=== PATIENT | female | born 1995 | race Caucasian/White ===

== ENCOUNTER → 2017-07-08 | Outpatient (CLI) | payer OTHER, SELFPAY | PROVIDERS: Family Provider Emergency Medicine; Visit Provider Otolaryngology | DX: R59.9 Enlarged lymph nodes, unspecified (principal) | CPT/HCPCS: 70491; Q9967 ==

== ENCOUNTER 2018-09-03 17:34 | Emergency (ER) | payer OTHER, SELFPAY ==
[2018-09-03 17:49] VITALS: BP 117/69; PULSE 90; RESP 18; TEMP 36.8; O2SAT 100; BMI 37.8
--- NOTE | 2018-09-03 18:06 | HMH.EDUTC ---
[facility] [place] Disposition Clinical Impression: Pharyngitis Qualifiers: Pharyngitis/tonsillitis etiology: other specified organisms Qualified Code(s): J02.8 - Acute pharyngitis due to other specified organisms Disposition: Home, Self-Care Condition on Discharge: Good Instructions: Sore Throat Additional Instructions: Drink plenty of fluids. Take tylenol or ibuprofen for pain. Take all the medications as prescribed. Off work for the next 2 days. Go to your regular doctor if you are not getting better in 48 hours or so. GO TO THE ER FOR ANY WORSENING OR LIFE THREATENING SYMPTOMS Prescriptions: Cefdinir [Omnicef 300mg Capsule] 300 mg PO BID #20 cap predniSONE [Deltasone 20mg tablet] 20 mg PO BID 3 Days #6 tablet Referrals: Naheed Hidalgo [Primary Care Provider] - Forms: Work/School Release Time of Disposition: 18:26 Medical Decision Making - Alli Inquiry Pt receiving controlled substance: No Alli was queried for this patient: No Vital Signs: 09/03/18 17:49 09/03/18 18:30 Temperature 98.2 F 98.4 F Temperature Source Oral Oral Pulse Rate 88 Pulse Rate [Right Brachial] 90 Respiratory Rate 18 16 Blood Pressure 114/64 Blood Pressure [Right Arm] 117/69 Blood Pressure Mean [Right Arm] 85 Blood Pressure Source Automatic Cuff Blood Pressure Source [Right Arm] Automatic Cuff Blood Pressure Position Sitting Blood Pressure Position [Right Arm] Sitting 02 Sat by Pulse Oximetry 100 Oxygen Delivery Method Room Air Room Air - Lab Data Lab results reviewed: Yes: I reviewed the patient's lab results. Lab Results 09/03/18 17:56: Strep Scn Rapid Clinic Negative Orders (Tests/Meds): ED MEDICATIONS Discontinued Medications Generic Name Dose Route Start Last Admin Trade Name Freq PRN Reason Stop Dose Admin Cefdinir 300 mg 09/03/18 18:26 Omnicef 300mg Capsule PO 09/03/18 18:27 ONCE ONE Protocol Prednisone 20 mg 09/03/18 18:28 Deltasone 20mg Tablet PO 09/03/18 18:29 ONCE ONE ORDERS Category Date Time Status Strep Screen Confirmation Stat Micro 09/03/18 17:56 Received [facility] [place] HPI - General Stated complaint: sore throat Time Seen by Provider: 09/03/18 18:07 Mode of Arrival: Family Vehicle Source of Information: Patient Limitations: No Limitations Description of Symptoms (Recalled from Triage Doc. by RN): PT C/O SORE THROAT. PT STATES THAT SHE HAD STREP 2 WEEKS AGO AND WAS TREATED WITH AMOXICILLIN. HEENT Symptoms (Recalled from RN notes): Yes (SORE THROAT) Resp Symptoms (Recalled from RN notes): No Skin Symptoms (Recalled from RN notes): No MS Symptoms (Recalled from RN notes): No Functional Status (Recalled from RN notes): N/A - History of Present Illness Provider Complaint: She was diagnosed with strep 2 weeks ago and treated with amoxicillin. she got better, but over the past 2 days she feels like she is getting it again. 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 I have reviewed the patient's past medical history: Yes Medical History: Denies:: Cancer, Diabetes Mellitus Type 1, Diabetes Mellitus Type 2, MRSA Laterality Cases: Bilateral: Tonsillectomy Other Surgeries: Yes: No Previous Surgery Amp
[2018-09-03 18:10] LABS: UTC Strep Screen (Rapid) Negative (Negative)
[2018-09-03 18:30] VITALS: BP 114/64; PULSE 88; RESP 16; TEMP 36.9; O2SAT 99
== END 2018-09-03 18:42 | disposition home or self-care (01) ==
PROVIDERS: Emergency Provider Nurse Practitioner Family; PCP Nurse Practitioner
DX: J02.8 Acute pharyngitis due to other specified organisms (principal)
CPT/HCPCS: 87880; 99201

== ENCOUNTER → 2019-07-31 10:37 | Outpatient (CLI) | payer OTHER, SELFPAY ==
--- NOTE | 2019-07-31 10:42 | US_ITS ---
PROCEDURE: US BREAST LT COMPLETE CLINICAL INDICATION: LT BREAST LUMP COMPARISON: No exams were available for comparison FINDINGS: There is an oval area homogeneous echogenicity in the 6 o'clock region of the left breast which has the appearance a lipoma measuring 2.3 x 0.6 cm. This does appear to elongate on additional images and may only be related underlying fibroglandular or adipose tissue. No cyst or suspicious lesion evident. IMPRESSION: Benign findings. BI-RADS category 3 probably benign. Recommend 3 month follow-up Dictated by: Oswald Patterson MD 08/03/2019 14:30 Electronically signed by Oswald Patterson MD in [place] 08/03/2019 14:30
== END ==
PROVIDERS: PCP Nurse Practitioner; Visit Provider Obstetrics & Gynecology Gynecology
DX: N63.0 Unspecified lump in unspecified breast (principal)
CPT/HCPCS: 76641

== ENCOUNTER → 2019-10-16 13:44 | Outpatient (CLI) | payer OTHER, SELFPAY ==
--- NOTE | 2019-10-16 13:50 | US_ITS ---
PROCEDURE: US BREAST LT COMPLETE CLINICAL INDICATION: 3 MO FU Palpable abnormality COMPARISON: US BREAST LT COMPLETE from 07/31/2019 FINDINGS: In the left breast at the 6 o'clock position sonography targeted to the palpable abnormality demonstrates an oval hypo echoic homogeneous echogenicity approximately 1.1 x 2.6 x 0.69 centimeters. This was approximately 1.0 x 2.2 x 0.58 centimeters on 07/31/2019. Given technical inaccuracies in the measurements and non comparable imaging planes on a the finding is probably not significantly changed. There are 2 fat containing nodules in the left axilla most consistent with lymph nodes largest 1.3 centimeters. IMPRESSION: BI-RADS category 3 probably benign finding. Consider 3 to six-month follow-up in attempt to document continued stability. Definitive tissue diagnosis could be attempted with ultrasound guided biopsy if felt clinically indicated. Dictated by: Arash Ray 10/17/2019 17:03 Electronically signed by Arash Ray in [place] 10/17/2019 17:03
== END ==
PROVIDERS: Visit Provider Obstetrics & Gynecology
DX: N63.20 Unspecified lump in the left breast, unspecified quadrant (principal)
CPT/HCPCS: 76641

== ENCOUNTER 2020-05-30 17:59 | Emergency (ER) | payer OTHER, SELFPAY ==
[2020-05-30 18:39] VITALS: BP 103/66; PULSE 63; RESP 14; TEMP 37; O2SAT 99; BMI 36.1
--- NOTE | 2020-05-30 19:10 | HMH.EDUTC ---
[facility] [place] Disposition Clinical Impression: Exposure to COVID-19 virus Disposition: Home, Self-Care Condition on Discharge: Good Instructions: Preventing the Spread of Coronavirus Discharge Instructions Additional Instructions: Drink plenty of fluids. Take tylenol for pain or fever. Follow up with your regular doctor. GO TO THE ER FOR ANY WORSENING SYMPTOMS Referrals: Caridad Hand APRN [Primary Care Provider] - Time of Disposition: 19:12 Medical Decision Making - Medical Records Medical records reviewed: No: I reviewed the patient's medical records. - Alli Inquiry Pt receiving controlled substance: No Vital Signs: 05/30/20 18:39 Temperature 98.6 F Temperature Source Oral Pulse Rate [Radial] 63 Respiratory Rate 14 Blood Pressure [Right Arm] 103/66 L Blood Pressure Mean [Right Arm] 78 Blood Pressure Source [Right Arm] Automatic Cuff Blood Pressure Position [Right Arm] Sitting 02 Sat by Pulse Oximetry 99 Oxygen Delivery Method Room Air Orders (Tests/Meds): ORDERS Category Date Time Status Covid-19 Nasal PCR ([facility]) Routine Lab 05/30/20 18:35 Received [facility] [place] HPI - General Stated complaint: COVID TEST Sore throat, headache Time Seen by Provider: 05/30/20 19:10 Mode of Arrival: Ambulatory Source of Information: Patient Limitations: No Limitations Description of Symptoms (Recalled from Triage Doc. by RN): HEADACHE, SORE THROAT, COVID TEST HEENT Symptoms (Recalled from RN notes): Yes Resp Symptoms (Recalled from RN notes): No Skin Symptoms (Recalled from RN notes): No MS Symptoms (Recalled from RN notes): No Functional Status (Recalled from RN notes): WNL - History of Present Illness Provider Complaint: She was exposed to covid by a family member that came to her house. She does have a scratchy sore throat, but she states that she feels fine and always has allergies this time of year. - Related Data Previous Rx's Medication Instructions Recorded Amoxicillin [Amoxicillin 875MG 875 mg PO Q12H #20 tab 08/24/19 Tab] Fluticasone Propionate [Flonase 1 spray NS BID 10 Days #1 bot 08/24/19 Allergy Relief NS] Azithromycin [Z-Rajan 250mg Tab*] 250 mg PO UD DOSE PK #6 tab 09/16/19 Pseudoephedrine HCl 30 mg PO Q6HP PRN #30 tab 09/16/19 Allergies Allergy/AdvReac Type Severity Reaction Status Date / Time famotidine [From Pepcid] Allergy Verified 05/04/19 11:38 metoclopramide [From Reglan] Allergy Verified 08/24/19 20:16 - Worker's Comp Is this a Worker's Comp case?: No [facility] History - Hepatitis A Screen Drug use history?: No High risk sexual behaviors?: No History of sexually transmitted infection?: No Currently employed?: No Childcare worker?: No Do you have indoor plumbing?: Yes Do you have electricity?: Yes Attestation statement:: This patient has been screened for Hepatitis A risk factors. I have reviewed the patient's past medical history: Yes Medical History: Denies:: Cancer, Diabetes Mellitus Type 1, Diabetes Mellitus Type 2, MRSA Laterality Cases: Bilateral: Tonsillectomy Other Surgeries: Yes: No Previous Surgery, Hernia Repair Amputation: No Fractures: No - Social History Smoking Status: Never smoker Alcohol Intake: never Alcohol Intake Frequency:: holidays/special occasions only Substance Use Type: denies use Occupational Status: other Housing: house Household Members: family Family Hx:: No significant family history ROS Obtained: Yes All systems reviewed & no additional complaints - Constitutional Constitutional: Reports system reviewed and no additional complaints, except as docu - Eyes Eyes: Reports system reviewed and no additional complaints, except as docu - ENT Ears, Nose, Mouth, and Throat: Reports system reviewed and no additional complaints, except as docu - Cardiovascular Cardiovascular: Reports system reviewed and no additional complaints, except as docu - Respiratory Respiratory: Yes system reviewed and no ad
[2020-05-30 19:17] VITALS: BP 103/66; PULSE 63; RESP 14; TEMP 37; O2SAT 99
== END 2020-05-30 19:18 | disposition home or self-care (01) ==
PROVIDERS: Emergency Provider Nurse Practitioner Family; PCP Nurse Practitioner Family
DX: Z20.828 Contact with and (suspected) exposure to other viral communicable diseases (principal)
CPT/HCPCS: 99201; U0003

== ENCOUNTER → 2020-07-26 12:28 | Outpatient (CLI) | payer OTHER, SELFPAY ==
[2020-07-26 13:49] LABS: HCG Qualitative, Serum Negative (Negative)
[2020-07-26 14:01] LABS: Coronavirus 19 IgG Antibody Negative (Negative); Coronavirus 19 IgM Antibody Negative (Negative)
== END ==
PROVIDERS: Visit Provider Internal Medicine Gastroenterology
DX: Z01.812 Encounter for preprocedural laboratory examination (principal); Z11.52 Encounter for screening for COVID-19; Z13.810 Encounter for screening for upper gastrointestinal disorder; Z12.11 Encounter for screening for malignant neoplasm of colon
CPT/HCPCS: 36415; 84703; 86328

== ENCOUNTER 2020-07-28 07:06 | Day surgery (SDC) | payer OTHER, SELFPAY ==
[2020-07-24 13:35] VITALS: BMI 37.1
[2020-07-28 07:24] VITALS: BP 117/60; PULSE 77; RESP 18; TEMP 36.7; O2SAT 97
[2020-07-28 07:44] VITALS: O2SAT 98
--- NOTE | 2020-07-28 07:46 | HMH.PROC ---
[facility] Procedure Note Procedure Note:: Upper Endoscopy Procedure Report: Esophagogastroduodenoscopy with cold biopsies Endoscopost: Melchor Marks II, MD Referring Physician: MARCIA Webb Date of Procedure: July 28, 2020 Equipment: Olympus GIF 180 standard upper endoscope Sedation: MAC sedation Indications: Mrs. Sanders is a 25-year-old female with epigastric abdominal pain and dyspepsia. She has had bloating, nausea, early satiety and heartburn. She reports some regurgitation. 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 She will go up to a week without a bowel movement and then have some soft loose stools. This is her first diagnostic upper endoscopy. She reports no dysphagia. She reports no melena or weight loss. Procedure: Prior to the procedure, a history and physical exam was performed, and patient's medications and allergies were reviewed. The risks, benefits and alternatives of the sedation and procedure were discussed with the patient. All questions were answered and informed consent was obtained. The patient was brought to the procedure room. Patient identification and proposed procedure were verified by the physician and the nurse. The patient was placed in a left lateral decubitus position and the scope was passed under direct vision. Throughout the procedure, the patient's blood pressure, pulse, and oxygen saturations were monitored continuously. The upper GI endoscopy was accomplished without difficulty. The patient tolerated the procedure well. Findings: The scope was passed directly into the upper esophagus and advanced to the third portion of the duodenum. The post bulbar duodenum and duodenal bulb were normal with normal mucosa and conniventes. The scope was withdrawn through a normal duodenal bulb and pylorus into the stomach. There was some bile reflux with mild linear reactive gastropathy of the antrum and body of the stomach. The remainder of the antrum, body and fundus of the stomach were grossly normal. Upon retroflexion there was no hiatal hernia. 2 biopsies were taken in the antrum and along the lesser curvature for histology to rule out gastritis and/or H pylori. The scope was then withdrawn into the esophagus. There was a serrated Z-line. There were mild tertiary contractions within the esophagus. There was no evidence of Meyer's esophagus or reflux esophagitis. There was no Schatzki's ring. Biopsies were taken at the GE junction. The remainder of the esophageal mucosa was normal. Impression: 1. Nonerosive GERD with mild esophageal dysmotility 2. Mild linear reactive gastropathy with bile reflux Plan: I will follow-up the biopsies. The patient does have functional dyspepsia and IBS constipation. I would consider Zelnorm or Motegrity. I would also consider a fiber bowel regimen (combined MiraLAX plus Konsyl daily to twice daily). Additionally, I would consider treatment for visceral sensitivity. We will discuss treatment options. I will proceed with colonoscopy.
--- NOTE | 2020-07-28 08:05 | HMH.PROC ---
[facility] Procedure Note Procedure Note:: Colonoscopy Procedure Report: Colonoscopy Endoscopist: Melchor Marks II, MD Referring physician: MARCIA Webb Date of Procedure: July 28, 2020 Equipment: Olympus 180 variable stiffness pediatric colonoscope Sedation: MAC sedation Indication: Mrs. Sanders is a 25-year-old female with dyspepsia and IBS with constipation. 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 She will go 1 week without a bowel movement and then have soft and loose stools. She has epigastric and some generalized abdominal discomfort. She has obstipation/incomplete defecation. She reports no rectal bleeding, weight loss or family history of colon cancer. She reports no family history of colitis or Crohn's disease. This is her first colonoscopy performed for diagnostic purposes. Procedure: Prior to the procedure, a history and physical exam was performed, and patient's medications and allergies were reviewed. The risks, benefits and alternatives of the sedation and procedure were discussed with the patient. All questions were answered and informed consent was obtained. The patient was brought to the procedure room. Patient identification and proposed procedure were verified by the physician and the nurse. The patient was placed in a left lateral decubitus position and the scope was passed under direct vision. Throughout the procedure, the patient's blood pressure, pulse, and oxygen saturations were monitored continuously. The colonoscopy was accomplished without difficulty. The patient tolerated the procedure well. Findings: On digital rectal examination there was normal rectal tone. There were no external hemorrhoids. The colonoscope was introduced through the anal canal to the rectum and advanced to the cecum. The ileocecal valve and appendiceal orifice were identified. The scope was advanced a short distance into the ileum which appeared grossly normal. The scope was then withdrawn into the colon. The cecum, ascending, transverse, descending, sigmoid and rectum were grossly normal. There were no mucosal abnormalities identified. Upon retroflexion within the rectum there were grade 1 internal hemorrhoids.The preparation was excellent throughout with [place] Preparation Score of 9. The cecal time was 12 minutes. Impression: 1. Normal colonoscopy with intubation of the terminal ileum Plan: The patient does have IBS constipation. I would certainly consider Zelnorm or Motegrity if covered. I would also consider treatment for visceral sensitivity. We will discuss dietary measures.
[2020-07-28 08:06] VITALS: BP 106/55; PULSE 78; RESP 12; TEMP 36.1; O2SAT 99
[2020-07-28 08:16] VITALS: BP 97/48; PULSE 77; RESP 16; O2SAT 100
--- NOTE | 2020-07-28 08:16 | P.PN_ITS ---
[facility] Anesthesia Checklist - Patient Identification Patient Identification: Arm Band - Structural Data Admitted From: Home Planned Operative Procedure/s: egd/colonoscopy Consent for Planned Operative Procedure(s) Verified: Yes Verified Documents: Surgical Consent, History and Physical - NPO Status Verified Time NPO: 00:00 - Additional verifications Anesthesia Reactions: No - Airway Assessment C-Spine Mobility Assessed: Yes (mp2) TMJ Mobility Assessed: Yes Dentition: Good Dentition - Neurological Assessment Level of Consciousness: Awake, Alert - Anesthesia Plan Anesthesia Risk discussed: Yes Anesthesia Plan: Verified ASA Class: II Anesthesia Type: MAC [facility] History I have reviewed the patient's past medical history: Yes Medical History: Reports:: Anxiety Denies:: Cancer, Diabetes Mellitus Type 1, Diabetes Mellitus Type 2, Internal Pacemaker, MRSA, Seizures *Have you ever received a pneumonia vaccine?: No *Have you received a flu vaccine this season?: No Anesthesia experience/problems:: nac Laterality Cases: Bilateral: Tonsillectomy Other Surgeries: Yes: Hernia Repair. No: Pacemaker Amputation: No Fractures: No - *Social History Last grade of school completed: Some college Smoking Status: Current some day smoker Tobacco Type: e-cigarettes # Packs/Day (cigarettes): 1 Alcohol Intake: current Alcohol Intake Frequency:: holidays/special occasions only Substance Use Type: denies use *Occupational Status:: unemployed Housing: house Household Members: spouse, children *Travel in the last 8 weeks: None Family Hx:: Thyroid Disorder, Substance abuse, Mental illness
[2020-07-28 08:26] VITALS: BP 96/48; PULSE 75; RESP 16; O2SAT 98
[2020-07-28 08:36] VITALS: BP 96/58; PULSE 65; RESP 16; TEMP 36.4; O2SAT 99
== END 2020-07-28 08:50 | disposition home or self-care (01) ==
LOC: OUTP 07:07
PROVIDERS: PCP Nurse Practitioner Family; Visit Provider Internal Medicine Gastroenterology
PROC: 0DJ08ZZ Inspection of Upper Intestinal Tract, Via Natural or Artificial Opening Endoscopic (ICD-10-PCS; CPT 43235; principal; 2020-07-28 08:00)
DX: K58.1 Irritable bowel syndrome with constipation (principal); R10.13 Epigastric pain; K64.0 First degree hemorrhoids; K21.9 Gastro-esophageal reflux disease without esophagitis; K22.4 Dyskinesia of esophagus; K31.9 Disease of stomach and duodenum, unspecified; F41.9 Anxiety disorder, unspecified; Z88.8 Allergy status to other drugs, medicaments and biological substances; Z79.899 Other long term (current) drug therapy
CPT/HCPCS: 45378; 43239

== ENCOUNTER 2021-10-16 18:56 | Emergency (ER) | payer OTHER, SELFPAY ==
[2021-10-16 18:56] VITALS: BP 115/73; PULSE 76; RESP 16; TEMP 36.8; O2SAT 97; BMI 39.1
--- NOTE | 2021-10-16 19:22 | CT_ITS ---
PROCEDURE INFORMATION: Exam: CT Abdomen And Pelvis Without Contrast Exam date and time: 10/16/2021 7:39 PM Age: 26 years old Clinical indication: Abdominal pain; Other: Bilateral flank pain and recent UTI; Additional info: Rule out kidney stones bilateral flank pain and recent UTI dx TECHNIQUE: Imaging protocol: Computed tomography of the abdomen and pelvis without contrast. Radiation optimization: All CT scans at this facility use at least one of these dose optimization techniques: automated exposure control; mA and/or kV adjustment per patient size (includes targeted exams where dose is matched to clinical indication); or iterative reconstruction. COMPARISON: [facility] CTA-CHEST 11/13/2015 8:50 PM FINDINGS: Tubes, catheters and devices: None noted. Lungs: Lung bases appear clear. Heart: No significant coronary calcifications. No cardiomegaly. No significant pericardial effusion. Liver: Normal. No mass. Gallbladder and bile ducts: Normal. No calcified stones. No ductal dilation. Pancreas: Normal. No ductal dilation. Spleen: Normal. No splenomegaly. Adrenal glands: Normal. No mass. Kidneys and ureters: Punctate left lower pole caliceal calcification. No hydronephrosis. Stomach and bowel: Unremarkable. No obstruction. No mucosal thickening. Appendix: No evidence of appendicitis. Intraperitoneal space: Unremarkable. No free air. No significant fluid collection. Retroperitoneal space: No significant retroperitoneal inflammatory changes are noted. Vasculature: Unremarkable. No abdominal aortic aneurysm. Lymph nodes: Unremarkable. No enlarged lymph nodes. Urinary bladder: Unremarkable as visualized. Reproductive: Unremarkable as visualized. Bones/joints: Unremarkable. No acute fracture. Soft tissues: Unremarkable. IMPRESSION: 1. No acute findings. 2. Nonobstructive left lower pole caliceal calcification.
[2021-10-16 19:26] LABS: Microscopic, Urine URINE MICROSCOPIC (MICROSCOPIC)
[2021-10-16 19:36] LABS: Appearance,Urine CLEAR (Clear); Bilirubin,Urine Negative (Negative); Blood, Urine Negative (Negative); Color,Urine YELLOW (Yellow); Glucose,Urine (UA) Negative (Negative); Ketones,Urine Negative (Negative); Leukocyte Esterase,Urine Negative (Negative); Nitrate,Urine Negative (Negative); PH,Urine 6.5 (5.0-8.5); Protein,Urine Negative (Negative); Specific Gravity, Urine <= 1.005 (1.005-1.030); Urobilinogen,Urine 0.2 EU/dl (0.2)
[2021-10-16 19:37] LABS: Urine Pregnancy, HCG Qual. Negative (Negative)
[2021-10-16 19:46] LABS: Amorphous Sediment,Urine Trace /lpf; Squamous Epithelial Cell,Urine Occasional #/hpf (0-5)
[2021-10-16 20:45] LABS: Alanine Aminotransferase 15 U/L (12-78); Albumin Level 3.7 g/dl (3.5-5.0); Albumin/Globulin Ratio 1.3 (1.1-1.8); Alkaline Phosphatase 23 U/L (38-126); Anion Gap 10.2 mEq/L (5-15); Aspartate Amino Transferase 30 U/L (14-36); Bilirubin,Total 0.5 mg/dl (0.2-1.3); Blood Urea Nitrogen 13 mg/dl (7-17); Calcium 7.8 mg/dl (8.4-10.2); Carbon Dioxide 20 mmol/L (22.0-30.0); Chloride 111 mmol/L (98-107); Creatinine Clearance Estimated 305 mL/min (50-200); Estimated Glomerular Filt Rate 149 ml/min (>60); GFR (African American) 180 ML/MIN (>60); Globulin 2.8 g/dL (1.3-3.2); Glucose 71 mg/dl (74-100); Potassium 4.2 mmoL/L (3.5-5.1); Sodium 137 mmol/L (136-145); Total Protein,Serum 6.5 g/dl (6.3-8.2)
[2021-10-16 21:11] LABS: Basophils # 0.1 K/mm3 (0-0.2); Basophils % 1.1 % (0.1-2.0); Eosinophils # 0.1 K/mm3 (0.0-0.4); Eosinophils % 0.8 % (0.1-12.0); Hematocrit 37.2 % (37.0-47.0); Hemoglobin 12.2 g/dL (12.2-16.2); Lymphocytes # 2.5 K/mm3 (0.7-4.5); Lymphocytes % 22.8 % (10-50); Mean Corpuscular HGB Conc 32.7 g/dL (31.8-35.4); Mean Corpuscular Hemoglobin 29.8 pg (27.0-31.2); Mean Corpuscular Volume 90.9 fl (81-99); Mean Platelet Volume 9.3 fl (7.4-10.4); Monocytes # 0.4 K/mm3 (0.1-1.0); Neutrophils # 7.8 K/mm3 (1.8-7.8); Neutrophils % 71.3 % (37.0-80.0); Platelet Count 231 K/mm3 (142-424); Red Blood Count 4.09 M/mm3 (4.20-5.40); Red Cell Distribution Width 13.6 % (11.5-17.5); White Blood Count 10.9 K/mm3 (4.8-10.8)
--- NOTE | 2021-10-16 21:27 | HMH.EDUROGF ---
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 The time I documented below is in addition to time spent performing reported procedures but includes the following listed in this critical care notation. Medical Decision Making - Medical Records Medical records reviewed: Yes: I reviewed the patient's medical records. - Alli Inquiry Pt receiving controlled substance: No Vital Signs: 10/16/21 18:56 Temperature 98.3 F Temperature Source Oral Pulse Rate [Left Radial] 76 Respiratory Rate 16 Blood Pressure [Right Arm] 115/73 Blood Pressure Mean [Right Arm] 87 02 Sat by Pulse Oximetry 97 Oxygen Delivery Method Room Air - Lab Data Lab results reviewed: Yes: I reviewed the patient's lab results. Lab Results 10/16/21 19:02: Urine Color Yellow, Urine Appearance Clear, Urine pH 6.5, Ur Specific [place] <= 1.005, Urine Protein Negative, Urine Glucose (UA) Negative, Urine Ketones Negative, Urine Blood Negative, Urine Nitrate Negative, Urine Bilirubin Negative, Urine Urobilinogen 0.2, Ur Leukocyte Esterase Negative, Ur Squamous Epith Cells Occasional, Amorphous Sediment Trace 10/16/21 19:02: Urine HCG, Qual Negative 10/16/21 20:12: Sodium 137, Potassium 4.2, Chloride 111 H, Carbon Dioxide 20 L, Anion Gap 10.2, BUN 13, Creatinine 0.50 L, Estimated Creat Clear 305 H, Estimated GFR 149, Est GFR ( Amer) 180, Glucose 71 L, Calcium 7.8 L, Total Bilirubin 0.5, AST 30, ALT 15, Alkaline Phosphatase 23 L, Total Protein 6.5, Albumin 3.7, Globulin 2.8, Albumin/Globulin Ratio 1.3 10/16/21 20:49: WBC 10.9 H, RBC 4.09 L, Hgb 12.2, Hct 37.2, MCV 90.9, MCH 29.8, MCHC 32.7, RDW 13.6, Plt Count 231, MPV 9.3, Neut % (Auto) 71.3, Lymph % (Auto) 22.8, [place] % (Auto) 4.0, Eos % (Auto) 0.8, Baso % (Auto) 1.1, Neut # (Auto) 7.8, Lymph # (Auto) 2.5, [place] # (Auto) 0.4, Eos # (Auto) 0.1, Baso # (Auto) 0.1 Result diagrams: 10/16/21 20:49 10/16/21 20:12 Orders (Tests/Meds): ED MEDICATIONS Discontinued Medications Generic Name Dose Route Start Last Admin Trade Name Freq PRN Reason Stop Dose Admin Sodium Chloride 1,000 mls @ 999 mls/hr 10/16/21 20:15 10/16/21 20:09 Sod Chlor 0.9% 1000ml Bag IV 10/16/21 21:15 999 mls/hr .Q1H1M SADIQ Administration Ketorolac Tromethamine 30 mg 10/16/21 20:07 10/16/21 20:14 Ketorolac 30mg/Ml Vial IV 10/16/21 20:08 Not Given ONCE ONE - CT Data CT Scan: Abdomen, Pelvis Time Received: 21:[address] Reviewed: Yes: I have viewed the radiologist's interpretation Preliminary Findings: Normal/NAD Medical Decision Narrative: has pelvic pain with no def etiology and no evid of infection Female Urogenital HPI - General Chief complaint: Abdominal Pain Stated complaint: back pain Time Seen by Provider: 10/16/21 21:00 Mode of Arrival: Ambulatory Source of Information: Patient, Medical Record Limitations: No Limitations Description of Symptoms (Recalled from ER Triage Doc. by RN): PT WAS SEEN AND TREATED ONE WEEK AGO FOR A UTI AND HER SYMPTOMS HAVE NOT IMPROVED. PT REPORTS INTERMITT RIGHT FLANK PAIN. URINARY FREQUENCY AND URGENCY X 1 WEEK. - History of Present Illness HPI Narrative: has urinary sx with hx of recent uti and has rt flank pain with freq and urgency Complaint: pelvic pain Onset (ago): day(s) Location: suprapubic Severity: moderate Duration: intermittent Urinary Symptoms: dysuria, urgency, frequency, flank pain : No Associated symptoms: denies other symptoms - Related Data
[2021-10-16 22:04] VITALS: BP 115/73; PULSE 73; RESP 18; TEMP 36.7; O2SAT 99
== END 2021-10-16 22:09 | disposition home or self-care (01) ==
PROVIDERS: Emergency Provider Emergency Medicine; PCP Nurse Practitioner Family
DX: R10.2 Pelvic and perineal pain (principal); R30.0 Dysuria; F41.9 Anxiety disorder, unspecified; F17.290 Nicotine dependence, other tobacco product, uncomplicated
CPT/HCPCS: 74176; 80053; 81001; 81025; 85025; 96360; 96365; 96367; 99284

== ENCOUNTER 2021-11-01 17:33 | Emergency (ER) | payer OTHER, SELFPAY ==
[2021-11-01 18:05] VITALS: BP 141/87; PULSE 78; RESP 19; TEMP 36.9; O2SAT 100; BMI 41.4
[2021-11-01 18:23] LABS: UTC Influenza A Antigen Negative (Negative)
[2021-11-01 18:24] LABS: UTC Influenza B Antigen Negative (Negative)
[2021-11-01 18:30] LABS: Strep Scrn Group A (Rapid) Negative (Negative)
--- NOTE | 2021-11-01 18:49 | HMH.EDUTC ---
[facility] [place] Disposition Clinical Impression: Strep sore throat Disposition: Home, Self-Care Condition on Discharge: Good Instructions: DI for Strep Throat Additional Instructions: Start antibiotics today be sure to take it as ordered with the full length of time although you should start feeling better in 24-48 hours. Change toothbrush and toothpaste 24-48 hours after starting antibiotics Tylenol or Motrin as needed for fever or pain Encourage fluids, water, Gatorade, Powerade, try cold fluids, popsicles, ice cream will make it feel better You are contagious for 24 hours. Avoid kissing anyone, no eating or drinking after anyone. You are contagious. Follow-up the ER for new or worsening symptoms or no noticeable improvement over the next 24-48 hours. Follow-up with PCP this week. Prescriptions: Azithromycin [Zithromax 250mg tab] 250 mg PO DIRECTED #6 tab Transmission Status: Pending to [id number] Referrals: Susana Pa APRN [Primary Care Provider] - Time of Disposition: 18:59 Medical Decision Making - Alli Inquiry Pt receiving controlled substance: No Vital Signs: 11/01/21 18:05 Temperature 98.4 F Temperature Source Oral Pulse Rate [Right Brachial] 78 Respiratory Rate 19 Blood Pressure [Right Arm] 141/87 H Blood Pressure Mean [Right Arm] 105 Blood Pressure Source [Right Arm] Automatic Cuff Blood Pressure Position [Right Arm] Sitting 02 Sat by Pulse Oximetry 100 Oxygen Delivery Method Room Air - Lab Data Lab Results 11/01/21 18:00: Group A Strep Rapid Negative 11/01/21 18:00: Influenza Type A Ag Negative, Influenza Type B Ag Negative Orders (Tests/Meds): ORDERS Category Date Time Status Strep Screen Confirmation Stat Micro 11/01/21 18:00 Received [facility] [place] HPI - General Chief complaint: Urgent Treatment [facility] Stated complaint: sorethroat, NAZARIO Time Seen by Provider: 11/01/21 18:25 Mode of Arrival: Ambulatory Source of Information: Patient Limitations: No Limitations Description of Symptoms (Recalled from Triage Doc. by RN): PATIENT C/O SORE THROAT, HEADACHE, AND SWOLLEN LYMPH NODES X 2 DAYS HEENT Symptoms (Recalled from RN notes): Yes Resp Symptoms (Recalled from RN notes): No Skin Symptoms (Recalled from RN notes): No MS Symptoms (Recalled from RN notes): No Functional Status (Recalled from RN notes): WNL - History of Present Illness Provider Complaint: 26 yr old fmeale presnets for sore throat,nazario, and swollen lymph nodes in neck - Related Data Home Medications Medication Instructions Recorded Confirmed Omeprazole 20 mg PO DAILY 07/24/20 07/28/20 105/Iron/Folic AC/Dha 1 each PO DAILY 07/24/20 07/28/20 [Prena1 True Combo Pack] Psyllium Husk [Metamucil] 425 gm PO DAILY 07/24/20 07/28/20 polyethylene glycoL 3350 [Miralax 17 gm PO DAILY 07/24/20 07/28/20 Powder] Previous Rx's Medication Instructions Recorded Azithromycin [Zithromax 250mg 250 mg PO DIRECTED #6 tab 11/01/21 tab] Allergies Allergy/AdvReac Type Severity Reaction Status Date / Time famotidine [From Pepcid] Allergy Verified 07/28/20 07:20 metoclopramide [From Reglan] Allergy Verified 07/28/20 07:20 - Worker's Comp Is this a Worker's Comp case?: No [facility] History - Hepatitis A Screen Drug use history?: No High risk sexual behaviors?: No History of sexually transmitted infection?: No Currently employed?: No Childcare worker?: No Do you have indoor plumbing?: Yes Do you have electricity?: Yes Attestation statement:: This patient has been screened for Hepatitis A risk factors. I have reviewed the patient's past medical history: Yes Medical History: Reports:: Anxiety Denies:: Cancer, Diabetes Mellitus Type 1, Diabetes Mellitus Type 2, Internal Pacemaker, MRSA, Seizures Laterality Cases: Bilateral: Tonsillectomy Other Surgeries: Yes: No Previous Surgery, Hernia Repair. No: Pacemaker Amputation: No Fractures: No - Social Histor
[2021-11-01 19:01] VITALS: BP 141/87; PULSE 78; RESP 19; TEMP 36.9; O2SAT 100
== END 2021-11-01 19:10 | disposition home or self-care (01) ==
PROVIDERS: Emergency Provider Nurse Practitioner Family; PCP Nurse Practitioner Family
DX: J02.9 Acute pharyngitis, unspecified (principal); R51.9 Headache, unspecified; F41.9 Anxiety disorder, unspecified; F17.290 Nicotine dependence, other tobacco product, uncomplicated; Z79.51 Long term (current) use of inhaled steroids; Z79.52 Long term (current) use of systemic steroids; Z79.899 Other long term (current) drug therapy; Z88.0 Allergy status to penicillin; Z88.1 Allergy status to other antibiotic agents; Z88.3 Allergy status to other anti-infective agents; Z88.8 Allergy status to other drugs, medicaments and biological substances
CPT/HCPCS: 87430; 87804; 99213; G0463

== ENCOUNTER 2021-11-19 09:03 | Emergency (ER) | payer OTHER, SELFPAY ==
[2021-11-19 09:15] VITALS: BP 127/66; PULSE 100; RESP 18; TEMP 37.9; O2SAT 98; BMI 40.7
[2021-11-19 09:34] LABS: Strep Scrn Group A (Rapid) Negative (Negative)
--- NOTE | 2021-11-19 09:37 | HMH.EDUTC ---
[facility] – [place] Disposition Clinical Impression: Pharyngitis Qualifiers: Pharyngitis/tonsillitis etiology: unspecified etiology Qualified Code(s): J02.9 - Acute pharyngitis, unspecified Disposition: Home, Self-Care Condition on Discharge: Good Instructions: Sore Throat, Cefdinir Additional Instructions: *Monitor Temp, Over the counter Motrin or Tylenol as directed/as needed Tylenol every 4 hours and Motrin every 6 hours (as long as your family doctor has told you that you can take it) for fever or pain. and straight to ER if unable to lower temp less than 101.0 after medication given *Warm salt water gargles may help to soothe the throat *Throat Lozenges *Warm fluids like tea with honey may help to soothe the throat *Sleep elevated *Humidifier/Vaporizer *Flonase 2 sprays in each nostril daily but be aware that it may take 2-3 days before you notice improvement *Bromfed may cause drowsiness. Know how it effects you (your child) before driving, caring for small child, or sending your child to school. Not other antihistamines/allergy medications while taking bromfed Your throat swab was sent for culture. Those results are typically sent to your primary care. Be sure to follow up in 2-3 days with your family doctor/primary care physician if no improvement so they can review those result and treat if necessary. If you don?t have a primary care doctor, I recommend you get one but in the mean time, you will have to return to a walk in clinic Follow up IMMEDIATELY for new or worsening symptoms or no Noticeable improvement over the next 48-72 hours. 911 for difficulty breathing or swallowing You had a Upper Respiratory Panel with COVID test done today you may check your results on the [facility] My Health Portal in the next 24-48 hours and if positive make sure to quarantine per the CDC guidelines and wear a well fitted mask Prescriptions: Fluticasone Propionate [Flonase 50mcg nasal spray 16gm] 1 spr NS DAILY #1 each Transmission Status: Received by [facility] Cefdinir [Omnicef 300mg Capsule] 300 mg PO BID 7 Days #14 cap Transmission Status: Received by [id number] Referrals: Susana Pa APRN [Primary Care Provider] - As needed Forms: Work/School Release Time of Disposition: 10:11 Medical Decision Making - Alli Inquiry Pt receiving controlled substance: No Alli was queried for this patient: No Vital Signs: 11/19/21 09:15 11/19/21 09:48 Temperature 100.2 F H 100.2 F H Temperature Source Oral Pulse Rate 100 H Pulse Rate [Right Brachial] 100 H Respiratory Rate 18 18 Blood Pressure 127/66 Blood Pressure [Right Arm] 127/66 Blood Pressure Mean [Right Arm] 86 Blood Pressure Source [Right Arm] Automatic Cuff Blood Pressure Position [Right Arm] Sitting 02 Sat by Pulse Oximetry 98 Oxygen Delivery Method Room Air - Lab Data Lab results reviewed: Yes: I reviewed the patient's lab results. Lab Results 11/19/21 08:13: Group A Strep Rapid Negative 11/19/21 08:40: Chlamy pneumoniae PCR Not detected, Adenovirus (PCR) Not detected, B. pertussis DNA (PCR) Not detected, Coronavirus OC43 (PCR) Not detected, Coronavirus HKU1 (PCR) Not detected, Coronavirus 229E (PCR) Not detected, Coronavirus NL63 (PCR) Not detected, Human Metapneumovir PCR Not detected, Influenza A (H1) PCR Not detected, Influ A (H1N1/09) PCR Not detected, Influenza A (H3) PCR Not detected, Influenza Type A (PCR) Not detected, Influenza Type B (PCR) Not detected, M. pneumoniae (PCR) Not detected, Parainfluenza 1 (PCR) Not detected, Parainfluenza 2 (PCR) Not detected, Parainfluenza 3 (PCR) Not detected, Parainfluenza 4 (PCR) Not detected, RSV (PCR) Not detected, Entero/Rhino (PCR) Not detected 11/19/21 09:18: Influenza Type A Ag Negative, Influenza Type B Ag Negative 11/19/21 09:52: [facility] Clinic Negative Orders (Tests/Meds): ORDERS Category Date Time Status Strep Screen Confirmation Stat Micro 11/19/21 08:13 Received
[2021-11-19 09:48] VITALS: BP 127/66; PULSE 100; RESP 18; TEMP 37.9; O2SAT 98
[2021-11-19 09:50] LABS: Adenovirus,PCR Not Detected (NotDetected); Bordetella Pertussis Not Detected (NotDetected); Chlamydophila Pneumoniae, PCR Not Detected (NotDetected); Coronavirus 229E Not Detected (NotDetected); Coronavirus NL63 Not Detected (NotDetected); Coronavirus OC43 Not Detected (NotDetected); Coronovirus HKU1,PCR Not Detected (NotDetected); Human Metapneumovirus Not Detected (NotDetected); Influenza A, PCR Not Detected (NotDetected); Influenza AH1, 2009 Not Detected (NotDetected); Influenza AH1, PCR Not Detected (NotDetected); Influenza AH3,PCR Not Detected (NotDetected); Influenza B, PCR Not Detected (NotDetected); Mycoplasma Pneumoniae, PCR Not Detected (NotDetected); Parainfluenza 1, PCR Not Detected (NotDetected); Parainfluenza 2, PCR Not Detected (NotDetected); Parainfluenza 3, PCR Not Detected (NotDetected); Parainfluenza 4, PCR Not Detected (NotDetected); Respiratory Syncytial Virus Not Detected (NotDetected); Rhinovirus/Enterovirus Not Detected (NotDetected)
[2021-11-19 10:06] LABS: UTC Pregnancy Test, Urine Negative (Negative)
[2021-11-19 10:07] LABS: UTC Influenza A Antigen Negative (Negative); UTC Influenza B Antigen Negative (Negative)
== END 2021-11-19 10:20 | disposition home or self-care (01) ==
PROVIDERS: Emergency Provider Nurse Practitioner; PCP Nurse Practitioner Family
DX: J02.9 Acute pharyngitis, unspecified (principal); F41.9 Anxiety disorder, unspecified; F17.290 Nicotine dependence, other tobacco product, uncomplicated
CPT/HCPCS: 81025; 87430; 87486; 87581; 87632; 87798; 87804; 99213; G0463

== ENCOUNTER 2021-11-21 01:10 | Emergency (ER) | payer OTHER, SELFPAY ==
[2021-11-21 01:17] VITALS: BP 106/54; PULSE 73; O2SAT 97
[2021-11-21 01:23] VITALS: BP 106/54; PULSE 75; RESP 18; TEMP 36.9; O2SAT 97; BMI 40.3
--- NOTE | 2021-11-21 01:28 | XR_ITS ---
PROCEDURE INFORMATION: Exam: XR Chest Exam date and time: 11/21/2021 2:16 AM Age: 26 years old Clinical indication: Cough and shortness of breath TECHNIQUE: Imaging protocol: XR of the chest. Views: 2 views. Total images: 2 COMPARISON: CR Chest 02/01/2019 9:46 PM FINDINGS: Lungs: Benign granulomatous disease of the lung is noted. Pleural spaces: Unremarkable. No pleural effusion. No pneumothorax. Heart/Mediastinum: Unremarkable. No cardiomegaly. Bones/joints: Unremarkable. IMPRESSION: No acute process identified.
[2021-11-21 01:33] LABS: Coronavirus 19, PCR Not Detected (NotDetected); Influenza A, PCR Not Detected (NotDetected); Influenza B, PCR Not Detected (NotDetected)
--- NOTE | 2021-11-21 01:33 | CT_ITS ---
PROCEDURE INFORMATION: Exam: CTA Chest With Contrast Exam date and time: 11/21/2021 2:26 AM Age: 26 years old Clinical indication: Shortness of breath; Additional info: SOA TECHNIQUE: Imaging protocol: Computed tomographic angiography of the chest with contrast. 3D rendering (Not supervised by radiologist): MIP and/or 3D reconstructed images were created by the technologist. Total images: 289 Radiation optimization: All CT scans at this facility use at least one of these dose optimization techniques: automated exposure control; mA and/or kV adjustment per patient size (includes targeted exams where dose is matched to clinical indication); or iterative reconstruction. Contrast material: ISOVUE 370; Contrast volume: 70 ml; Contrast route: INTRAVENOUS (IV); COMPARISON: [facility] CTA-CHEST 11/13/2015 8:50 PM FINDINGS: Pulmonary arteries: Pulmonary artery evaluation of good technical quality with no pulmonary artery embolism identified. Aorta: No thoracic aortic aneurysm, dissection or other acute thoracic aortic injury. Lungs: Benign granulomatous disease of the lung is noted. Mild bibasilar mosaic attenuation of the pulmonary parenchyma, suggesting mild small airway infectious/inflammatory process. Pleural spaces: Unremarkable. No pneumothorax. No pleural effusion. Heart: Unremarkable. No cardiomegaly. No pericardial effusion. Coronary arteries: No calcific coronary artery disease identified. Lymph nodes: Unremarkable. No enlarged lymph nodes. Spleen: 15 cm splenic long axis indicates splenomegaly. Bones/joints: Unremarkable. No acute fracture. Soft tissues: Unremarkable. Other findings: Normal left atrial appendage is opacified by contrast with no thrombus. IMPRESSION: 1. No pulmonary artery embolism identified. 2. No thoracic aortic aneurysm, dissection or other acute thoracic aortic injury. 3. Mild bibasilar mosaic attenuation of the pulmonary parenchyma, suggesting mild small airway infectious/inflammatory process. 4. Nonspecific splenomegaly.
[2021-11-21 01:36] LABS: Basophils # 0.1 K/mm3 (0-0.2); Basophils % 0.8 % (0.1-2.0); Eosinophils % 0.3 % (0.1-12.0); Hematocrit 37.3 % (37.0-47.0); Hemoglobin 12.3 g/dL (12.2-16.2); Lymphocytes # 1.5 K/mm3 (0.7-4.5); Lymphocytes % 14.2 % (10-50); Mean Corpuscular HGB Conc 33.1 g/dL (31.8-35.4); Mean Corpuscular Volume 90.4 fl (81-99); Mean Platelet Volume 8.8 fl (7.4-10.4); Monocytes # 0.8 K/mm3 (0.1-1.0); Monocytes % 7.1 % (1.7-9.3); Neutrophils # 8.3 K/mm3 (1.8-7.8); Neutrophils % 77.6 % (37.0-80.0); Platelet Count 206 K/mm3 (142-424); Red Blood Count 4.12 M/mm3 (4.20-5.40); Red Cell Distribution Width 14.2 % (11.5-17.5); White Blood Count 10.7 K/mm3 (4.8-10.8)
[2021-11-21 01:45] LABS: Alanine Aminotransferase 17 U/L (12-78); Albumin Level 4.2 g/dl (3.5-5.0); Albumin/Globulin Ratio 1.1 (1.1-1.8); Alkaline Phosphatase 56 U/L (38-126); Anion Gap 13.7 mEq/L (5-15); Aspartate Amino Transferase 21 U/L (14-36); Bilirubin,Total 0.5 mg/dl (0.2-1.3); Blood Urea Nitrogen 17 mg/dl (7-17); Calcium 9.4 mg/dl (8.4-10.2); Carbon Dioxide 26 mmol/L (22.0-30.0); Chloride 104 mmol/L (98-107); Creatinine Clearance Estimated 218 mL/min (50-200); Estimated Glomerular Filt Rate 101 ml/min (>60); GFR (African American) 122 ML/MIN (>60); Globulin 3.7 g/dL (1.3-3.2); Glucose 104 mg/dl (74-100); Potassium 3.7 mmoL/L (3.5-5.1); Sodium 140 mmol/L (136-145); Total Protein,Serum 7.9 g/dl (6.3-8.2)
[2021-11-21 01:47] LABS: HCG Qualitative, Serum Negative (Negative)
[2021-11-21 01:48] LABS: Strep Scrn Group A (Rapid) Negative (Negative)
[2021-11-21 01:50] LABS: C-Reactive Protein 166.5 mg/L (0-4)
[2021-11-21 02:04] LABS: Procalcitonin 0.161 ng/mL (0.0-2.0)
[2021-11-21 02:11] LABS: Erythrocyte Sedimentation Rate 95 mm/hr (0-20)
[2021-11-21 02:27] LABS: Monoscreen (Rapid) Negative (Negative)
--- NOTE | 2021-11-21 02:54 | HMH.EDURI ---
ED Disposition Clinical Impression: Bronchitis Pharyngitis Qualifiers: Pharyngitis/tonsillitis etiology: unspecified etiology Qualified Code(s): J02.9 - Acute pharyngitis, unspecified Disposition: Home, Self-Care Condition on Discharge: Good Instructions: DI for Acute Bronchitis Additional Instructions: fluids and see pcp for follow up Prescriptions: Minocycline HCl [Minocycline HCl 100mg Tab*] 100 mg PO BID #20 tab Transmission Status: Pending to [facility] predniSONE [Prednisone 20mg Tab] 20 mg PO BID #10 tab [facility]: [facility] Referrals: Susana Pa APRN [Primary Care Provider] - - Critical Care Critical Care Time: No Attestation: On 11/21/21, the high probability of a clinically significant, sudden or life threatening deterioration of the following system(s) required my full and direct attention, intervention and personal management. The time I documented below is in addition to time spent performing reported procedures but includes the following listed in this critical care notation. Medical Decision Making - Medical Records Medical records reviewed: Yes: I reviewed the patient's medical records. - Alli Inquiry Pt receiving controlled substance: No Vital Signs: 11/21/21 01:17 11/21/21 01:23 Temperature 98.4 F Temperature Source Oral Pulse Rate 73 Pulse Rate [Apical] 75 Respiratory Rate 18 Blood Pressure 106/54 L Blood Pressure [Right Arm] 106/54 L Blood Pressure Mean [Right Arm] 71 Blood Pressure Source [Right Arm] Automatic Cuff Blood Pressure Position [Right Arm] Sitting 02 Sat by Pulse Oximetry 97 97 Oxygen Delivery Method Room Air Room Air - Lab Data Lab results reviewed: Yes: I reviewed the patient's lab results. Lab Results 11/21/21 01:20: WBC 10.7, RBC 4.12 L, Hgb 12.3, Hct 37.3, MCV 90.4, MCH 30.0, MCHC 33.1, RDW 14.2, Plt Count 206, MPV 8.8, Neut % (Auto) 77.6, Lymph % (Auto) 14.2, [place] % (Auto) 7.1, Eos % (Auto) 0.3, Baso % (Auto) 0.8, Neut # (Auto) 8.3 H, Lymph # (Auto) 1.5, [place] # (Auto) 0.8, Eos # (Auto) 0.0, Baso # (Auto) 0.1, ESR 95 H 11/21/21 01:20: Sodium 140, Potassium 3.7, Chloride 104, Carbon Dioxide 26, Anion Gap 13.7, BUN 17, Creatinine 0.70, Estimated Creat Clear 218, Estimated GFR 101, Est GFR ( Amer) 122, Glucose 104 H, Calcium 9.4, Total Bilirubin 0.5, AST 21, ALT 17, Alkaline Phosphatase 56, C-Reactive Protein 166.5 H, Total Protein 7.9, Albumin 4.2, Globulin 3.7 H, Albumin/Globulin Ratio 1.1 11/21/21 01:20: Serum HCG, Qual Negative 11/21/21 01:20: Group A Strep Rapid Negative 11/21/21 01:20: SARS-CoV-2 (PCR) Not detected, Influenza A Untype (PCR) Not detected, Influenza Type B (PCR) Not detected 11/21/21 01:20: Procalcitonin 0.161 11/21/21 01:20: Monoscreen Negative Result diagrams: 11/21/21 01:20 11/21/21 01:20 Orders (Tests/Meds): ED MEDICATIONS Generic Name Dose Route Start Last Admin Trade Name Freq PRN Reason Stop Dose Admin Sodium Chloride 1,000 mls @ 999 mls/hr 11/21/21 01:30 11/21/21 01:36 Sod Chlor 0.9% 1000ml Bag IV 11/21/21 02:30 999 mls/hr .Q1H1M SADIQ Administration Sodium Chloride 3 ml 11/21/21 01:29 Sodium Chloride 3% 15ml Neb IH 12/21/21 01:28 ONCE PRN INDUCE SPUTUM COLLECTION Discontinued Medications Generic Name Dose Route Start Last Admin Trade Name Freq PRN Reason Stop Dose Admin Iopamidol 70 ml 11/21/21 02:36 11/21/21 02:38 Iopamidol-370 (76%);100ml Bottle IV 11/21/21 02:37 70 ml ONCE ONE Administration Ketorolac Tromethamine 30 mg 11/21/21 02:21 11/21/21 02:24 Ketorolac 30mg/Ml Vial IV 11/21/21 02:22 30 mg ONCE ONE Administration Methylprednisolone Sodium Succinate 125 mg 11/21/21 01:31 11/21/21 01:36 Methylprednisolone Sod Succ 125mg Vial IV 11/21/21 01:32 125 mg ONCE ONE Administration Sodium Chloride 10 ml 11/21/21 02:36 11/21/21 02:37 Sodium Chloride 0.9% 10ml Syr (R
[2021-11-21 04:04] VITALS: BP 110/74; PULSE 73; RESP 18; TEMP 36.9; O2SAT 97
== END 2021-11-21 04:16 | disposition home or self-care (01) ==
PROVIDERS: Emergency Provider Emergency Medicine; PCP Nurse Practitioner Family
DX: J40 Bronchitis, not specified as acute or chronic (principal); Z88.1 Allergy status to other antibiotic agents; Z88.8 Allergy status to other drugs, medicaments and biological substances; F41.9 Anxiety disorder, unspecified; Z72.0 Tobacco use
CPT/HCPCS: 71046; 71275; 80053; 84145; 84703; 85025; 85651; 86140; 86318; 87430; 96365; 96375; 99284; C9803; Q9967; U0003; U0005

== ENCOUNTER 2022-07-18 22:36 | Emergency (ER) | payer OTHER, SELFPAY ==
[2022-07-18 22:37] VITALS: BP 121/63; PULSE 82; RESP 20; TEMP 36.8; O2SAT 99; BMI 36.8
[2022-07-18 22:48] VITALS: BP 132/78; PULSE 80; O2SAT 99
[2022-07-18 23:01] VITALS: BP 121/63; PULSE 66; O2SAT 99
[2022-07-18 23:31] VITALS: BP 100/42; PULSE 72; O2SAT 99
--- NOTE | 2022-07-18 23:43 | CT_ITS ---
PROCEDURE INFORMATION: Exam: CT Abdomen And Pelvis With Contrast Exam date and time: 07/19/2022 12:35 AM Age: 27 years old Clinical indication: Other: Low pelvic pain; Additional info: Pelvic low back pain w/ HX of abn cervical cells TECHNIQUE: Imaging protocol: Computed tomography of the abdomen and pelvis with contrast. Radiation optimization: All CT scans at this facility use at least one of these dose optimization techniques: automated exposure control; mA and/or kV adjustment per patient size (includes targeted exams where dose is matched to clinical indication); or iterative reconstruction. Contrast material: ISOVUE; Contrast volume: 75 ml; Contrast route: IV; COMPARISON: CT ABDOMEN PELVIS WO CON 10/16/2021 7:39 PM FINDINGS: Lungs: Clear basilar lung parenchyma. Pleural spaces: No pleural fluid. Heart: Normal heart size. Liver: Normal configuration. Homogeneous parenchyma. Gallbladder and bile ducts: Postprandial gallbladder is contracted. Pancreas: Normal. No ductal dilation. Spleen: Spleen measures 13.5 cm. Adrenal glands: Normal configuration. Kidneys and ureters: Kidneys enhance symmetrically without evidence of inflammation. Punctate intrarenal stone noted on the left. Stomach and bowel: Unremarkable. No obstruction. No mural thickening. Appendix: Normal appendix is confirmed. Intraperitoneal space: Hazy appearance of the mesentery. Low volume pelvic free fluid. No pelvic inflammatory change otherwise. Vasculature: Normal caliber arterial structures. Lymph nodes: There are numerous mesenteric lymph nodes in the mesenteric root which are larger than seen on a prior exam in October 2021. Traveling [employer] Associate node measures 9 mm short axis diameter, previously 6 mm on the prior. Non pathologically enlarged but more prominent aortocaval nodes are noted in the upper abdomen. Urinary bladder: Unremarkable as visualized. Reproductive: Physiologic appearance for age. Bones/joints: No fracture or destructive lesion. Soft tissues: Unremarkable. IMPRESSION: 1. Low volume pelvic free fluid is nonspecific and may reflect recently ruptured ovarian follicle. Otherwise no acute pelvic abnormality. 2. When compared to prior exam in October, there are increasing but technically non pathologically enlarged mesenteric root lymph nodes with increasing attenuation in the mesentery. Size of the spleen has increased as well. Findings may reflect an infectious or inflammatory process but the time frame is more concerning for developing neoplasm. Lymphoma is not excluded.
[2022-07-18 23:45] VITALS: PULSE 68; O2SAT 99
[2022-07-18 23:50] LABS: Microscopic, Urine URINE MICROSCOPIC (MICROSCOPIC)
[2022-07-19] VITALS: BP 114/53; PULSE 60; O2SAT 99
[2022-07-19 00:01] LABS: Basophils # 0.1 K/mm3 (0-0.2); Basophils % 0.8 % (0.1-2.0); Eosinophils # 0.1 K/mm3 (0.0-0.4); Eosinophils % 0.9 % (0.1-12.0); Hematocrit 37.8 % (37.0-47.0); Hemoglobin 12.5 g/dL (12.2-16.2); Lymphocytes # 2.2 K/mm3 (0.7-4.5); Lymphocytes % 31.9 % (10-50); Mean Corpuscular HGB Conc 33.1 g/dL (31.8-35.4); Mean Corpuscular Hemoglobin 29.3 pg (27.0-31.2); Mean Corpuscular Volume 88.4 fl (81-99); Monocytes # 0.4 K/mm3 (0.1-1.0); Monocytes % 5.6 % (1.7-9.3); Neutrophils # 4.3 K/mm3 (1.8-7.8); Neutrophils % 60.8 % (37.0-80.0); Platelet Count 226 K/mm3 (142-424); Red Blood Count 4.28 M/mm3 (4.20-5.40)
[2022-07-19 00:02] LABS: Chloride 105 mmol/L (98-107); Potassium 3.9 mmoL/L (3.5-5.1); Sodium 140 mmol/L (136-145)
[2022-07-19 00:03] LABS: Appearance,Urine CLEAR (Clear); Bilirubin,Urine Negative (Negative); Blood, Urine TRACE-L (Negative); Color,Urine YELLOW (Yellow); Glucose,Urine (UA) Negative (Negative); Ketones,Urine TRACE (Negative); Leukocyte Esterase,Urine Negative (Negative); Nitrate,Urine Negative (Negative); Protein,Urine Negative (Negative); Specific Gravity, Urine 1.025 (1.005-1.030); Urobilinogen,Urine 0.2 EU/dl (0.2)
[2022-07-19 00:05] LABS: Alanine Aminotransferase 22 U/L (12-78); Albumin Level 4.3 g/dl (3.5-5.0); Albumin/Globulin Ratio 1.3 (1.1-1.8); Alkaline Phosphatase 57 U/L (38-126); Anion Gap 12.9 mEq/L (5-15); Aspartate Amino Transferase 23 U/L (14-36); Bilirubin,Total 0.2 mg/dl (0.2-1.3); Blood Urea Nitrogen 16 mg/dl (7-17); Calcium 8.9 mg/dl (8.4-10.2); Carbon Dioxide 26 mmol/L (22.0-30.0); Creatinine Clearance Estimated 203 mL/min (50-200); Estimated Glomerular Filt Rate 100 ml/min (>60); GFR (African American) 121 ML/MIN (>60); Globulin 3.2 g/dL (1.3-3.2); Glucose 104 mg/dl (74-100); Total Protein,Serum 7.5 g/dl (6.3-8.2)
[2022-07-19 00:06] LABS: Urine Pregnancy, HCG Qual. Negative (Negative)
[2022-07-19 00:29] LABS: Bacteria,Urine Trace /lpf; RBC,Urine Occasional #/hpf (0-3)
[2022-07-19 00:31] VITALS: BP 110/63; PULSE 65; O2SAT 100
[2022-07-19 01:01] VITALS: BP 104/60; PULSE 61; O2SAT 100
[2022-07-19 01:31] VITALS: BP 94/71; PULSE 64; O2SAT 99
--- NOTE | 2022-07-19 01:33 | HMH.EDUROGF ---
Discharge Plan Disposition Patient Disposition: Home, Self-Care Prescriptions Prescriptions: No Action [id number] ac-dha 1 EACH combo pack 1 each PO DAILY metoprolol succinate 25 mg tablet extended release 24 hr 12.5 mg PO DAILY Label Comments: TAKE 1/2 (ONE-HALF) TABLET BY MOUTH ONCE DAILY Referrals Follow up/Referrals: Provider,Referral, [Primary Care Provider] - See instructions Clinical Impressions Clinical Impression: Pelvic pain Instructions Patient Instructions: DI for Pelvic Pain Discharge ED Provider: Nii Pimentel Female Urogenital HPI General Chief complaint: Urogenital-Female Stated complaint: abd& back pain, Time Seen by Provider: 07/19/22 01:33 Mode of Arrival: Family Vehicle Source of Information: Patient Limitations: No Limitations Description of Symptoms (Recalled from ER Triage Doc. by RN): Pt c/o low back and pelvic pain with bladder pressure this evening. States she and her had intercourse today and some time after she noted the pain. Per her ovulation tracker she is due to begin ovulating and assumed that was the reason for the back and pelvic ache. However, when she attemtped to urinate, she noted that there was a lot of bladder pressure . Pt states she reached up inside and felt a growth maybe in the vqaginal canal. Denies any vaginal bleeding. She is , full term w/ vaginal delivery. She does report a hx of PCOS and has had a LEEP procedure. States she is do to have her q6mn biopsy. Pt also c/o nausea. Denies any fever, chills, vomiting or diarrhea. 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 - no other reported sx MD Complaint: pelvic pain Onset (ago): hour(s) Radiation: suprapubic Severity: moderate Duration: intermittent Sexual activity: yes : No Related Data Home Medications Medication Instructions Recorded Confirmed vit no.105-iron 30 1 each PO DAILY Supplement 07/24/20 07/28/20 mg-folic acid 1.4 mg-dha 300 mg oral pack metoprolol succinate 25 mg 12.5 mg PO DAILY heart rate 07/19/22 07/19/22 tablet,extended release 24 hr Allergies Allergy/AdvReac Type Severity Reaction Status Date / Time metoclopramide [From Reglan] Allergy Mild Hives Verified 07/19/22 00:05 azithromycin Allergy Verified 07/19/22 00:05 famotidine [From Pepcid] Allergy Verified 07/28/20 07:20 [facility] Disclaimer: The information contained in this section may have been updated after the patient was seen, as this information can be updated by other users. Social History Smoking Status: Current every day smoker tobacco type: e-cigarettes second hand exposure: Yes alcohol intake: never substance use type: denies use current occupational status: other Travel in the last 8 weeks: None household members: spouse and children housing: house current occupational exposures/hazards: No caffeine: Yes ROS Obtained: Yes All systems reviewed & no additional complaints except as documented Physical Exam General General appearance: alert Head Head exam: normocephalic Eye Eye exam: Present PERRL and EOMI ENT ENT exam: Present mucous membranes moist Neck Neck exam: Absent trachea midline Respiratory Respiratory exam: Absent respiratory distress Cardiovascular Cardiovascular exam: Present regular rate External exam: Present other (pt declined ) Extremities Exam Extremities exam: Present full ROM Neurological Exam Neurological exam: Present alert, oriented X3 and CN II-XII intact Psychiatric Psychiatric exam: Present normal affect Skin Skin exam: Absent rash Medical Decision Making Medical Records Medical records reviewed: Yes I reviewed the patient's medical records. Alli Inquiry Pt receiving controlled substance: No Vital Signs: 07/18/22 22:37 07/18/22 22:48 07/18/22 23:01 Romeo
[2022-07-19 01:41] LABS: Procalcitonin 0.044 ng/mL (0.0-2.0)
[2022-07-19 02:01] VITALS: BP 104/61; PULSE 61; O2SAT 100
[2022-07-19 02:02] LABS: Erythrocyte Sedimentation Rate 21 mm/hr (0-20)
[2022-07-19 02:04] LABS: C-Reactive Protein 12.8 mg/L (0-4)
--- NOTE | 2022-07-19 02:14 | PC.NURSE ---
& this RN at bedside to review results. #3 Take home pack offered by MD or further pain medication, as pt still c/o of some pain. She refused at this time. Disc of CT scan given to pt to take to PCP/OBGYN
[2022-07-19 02:18] VITALS: BP 104/61; PULSE 75; RESP 17; TEMP 36.7; O2SAT 100
== END 2022-07-19 02:34 | disposition home or self-care (01) ==
PROVIDERS: Emergency Provider Emergency Medicine
DX: R10.2 Pelvic and perineal pain (principal); M54.50 Low back pain, unspecified
CPT/HCPCS: 74177; 80053; 81001; 81025; 84145; 85025; 85651; 86140; 96361; 96374; 96375; 99285; J2405; Q9967

== ENCOUNTER 2022-08-02 14:01 | Emergency (ER) | payer OTHER, SELFPAY ==
[2022-08-02 14:35] VITALS: BP 131/86; PULSE 91; RESP 21; TEMP 36.8; O2SAT 98; BMI 42.0
[2022-08-02 14:55] LABS: UTC Influenza A Antigen Negative (Negative)
[2022-08-02 14:56] LABS: UTC Influenza B Antigen Negative (Negative)
[2022-08-02 14:57] LABS: UTC Strep Screen (Rapid) Negative (Negative)
--- NOTE | 2022-08-02 15:05 | EXP.UTC ---
Discharge Plan Disposition Patient Disposition: Home, Self-Care Condition: Good Prescriptions Prescriptions: New methylprednisolone [Medrol (Rajan)] 4 mg tablets,dose pack See Rx Instructions .Route .COMPLEX 6 Days Qty: 21 0RF Rx Instructions: taper pack; amoxicillin-pot clavulanate 875-125 mg Tablet 1 tab PO Q12H Qty: 20 0RF No Action metoprolol succinate 25 mg tablet extended release 24 hr 12.5 mg PO DAILY Label Comments: TAKE 1/2 (ONE-HALF) TABLET BY MOUTH ONCE DAILY Referrals Follow up/Referrals: Susana Pa APRN [Primary Care Provider] - See instructions Activity Restrictions/Add. Instructions Additional Instructions/Restrictions: *Monitor Temp, Over the counter Motrin or Tylenol as directed/as needed Tylenol every 4 hours and Motrin every 6 hours (as long as your family doctor has told you that you can take it) for fever or pain. and straight to ER if unable to lower temp less than 101.0 after medication given *Warm salt water gargles may help to soothe the throat *Throat Lozenges? *Warm fluids like tea with honey may help to soothe the throat? *Sleep elevated *Humidifier/Vaporizer Take medication as prescribed Your throat swab was sent for culture. Those results are typically sent to your primary care. Be sure to follow up in 2-3 days with your family doctor/primary care physician if no improvement so they can review those result and treat if necessary. If you don?t have a primary care doctor, I recommend you get one but in the mean time, you will have to return to a walk in clinic Follow up IMMEDIATELY for new or worsening symptoms or no Noticeable improvement over the next 48-72 hours. 911 for difficulty breathing or swallowing Clinical Impressions Clinical Impression: Sinusitis Instructions Patient Instructions: DI for Sinusitis, Sinusitis Discharge ED Provider: Aylin Mortensen [facility] General Stated complaint: possible flu cough runny nose congestion fever Mode of Arrival: Ambulatory Source of Information: Patient Limitations: No Limitations Time Seen by Provider: 08/02/22 15:05 Description of Symptoms (Recalled from Triage Doc. by RN): PATIENT C/O RUNNY NOSE, CHEST/HEAD CONGESTION, CHILLS, FATIGUE, HEADACHE AND SORE THROAT X 2 DAYS HEENT Symptoms (Recalled from RN notes): Yes Resp Symptoms (Recalled from RN notes): No Skin Symptoms (Recalled from RN notes): No MS Symptoms (Recalled from RN notes): No Functional Status (Recalled from RN notes): WNL History of Present Illness Provider Complaint: Patient states that she has been having sinus congestion and pressure on and off for over a week But for the last couple of days her headache congestion has got worse and feels like it is draining in her throat into her chest and worried it going to go to her lungs States that she has been having headache and pressure behind her eyes and feeling tired and achy Related Data Home Medications Medication Instructions Recorded Confirmed metoprolol succinate 25 mg 12.5 mg PO DAILY heart rate 07/19/22 08/02/22 tablet,extended release 24 hr Previous Rx's Medication Instructions Recorded amoxicillin 875 mg-potassium 1 tab PO Q12H #20 tabs 08/02/22 clavulanate 125 mg tablet methylprednisolone 4 mg tablets in See Rx Instructions .Route 08/02/22 a dose pack (Medrol (Rajan)) .COMPLEX 6 days #21 tabs Allergies Allergy/AdvReac Type Severity Reaction Status Date / Time metoclopramide [From Reglan] Allergy Mild Hives Verified 07/19/22 00:05 azithromycin Allergy Verified 07/19/22 00:05 famotidine [From Pepcid] Allergy Verified 07/28/20 07:20 Worker's Comp Is this a Worker's Comp case?: No [facility] Disclaimer: The information contained in this section may have been updated after the patient was seen, as this information can be updated by other users. Medical History (Updated 08/02/22 @ 15:16 by Aylin Mortensen APRN) Crow
[2022-08-02 15:17] VITALS: BP 131/86; PULSE 91; RESP 21; TEMP 36.8; O2SAT 98
== END 2022-08-02 15:21 | disposition home or self-care (01) ==
PROVIDERS: Emergency Provider Nurse Practitioner; PCP Nurse Practitioner Family
DX: J32.9 Chronic sinusitis, unspecified (principal)
CPT/HCPCS: 87804; 87880; 99212; 99213; G0463

== ENCOUNTER → 2022-09-22 10:00 | Outpatient (CLI) | payer OTHER, SELFPAY ==
[2022-09-22 14:37] LABS: Basophils % 0.5 % (0.1-2.0); Eosinophils % 0.4 % (0.1-12.0); Hematocrit 39.1 % (37.0-47.0); Hemoglobin 13.1 g/dL (12.2-16.2); Lymphocytes # 1.7 K/mm3 (0.7-4.5); Lymphocytes % 25.4 % (10-50); Mean Corpuscular HGB Conc 33.4 g/dL (31.8-35.4); Mean Corpuscular Hemoglobin 29.4 pg (27.0-31.2); Monocytes # 0.4 K/mm3 (0.1-1.0); Monocytes % 5.7 % (1.7-9.3); Neutrophils # 4.6 K/mm3 (1.8-7.8); Platelet Count 223 K/mm3 (142-424); Red Blood Count 4.44 M/mm3 (4.20-5.40); Red Cell Distribution Width 13.3 % (11.5-17.5); White Blood Count 6.8 K/mm3 (4.8-10.8)
[2022-09-22 14:41] LABS: Erythrocyte Sedimentation Rate 22 mm/hr (0-20)
[2022-09-22 15:22] LABS: Alanine Aminotransferase 14 U/L (12-78); Albumin Level 4.7 g/dl (3.5-5.0); Albumin/Globulin Ratio 1.6 (1.1-1.8); Alkaline Phosphatase 41 U/L (38-126); Anion Gap 12.8 mEq/L (5-15); Aspartate Amino Transferase 18 U/L (14-36); Bilirubin,Total 0.7 mg/dl (0.2-1.3); Blood Urea Nitrogen 14 mg/dl (7-17); Calcium 9.2 mg/dl (8.4-10.2); Carbon Dioxide 26 mmol/L (22.0-30.0); Chloride 104 mmol/L (98-107); Chol/HDL Ratio 2.6 (1-3.5); Cholesterol 146 mg/dl (140-200); Estimated Glomerular Filt Rate 100 ml/min (>60); GFR (African American) 121 ML/MIN (>60); Glucose 85 mg/dl (74-100); HDL Cholesterol 56 mg/dl (40-60); Potassium 4.8 mmoL/L (3.5-5.1); Sodium 138 mmol/L (136-145); Total Protein,Serum 7.7 g/dl (6.3-8.2); Triglycerides 74 mg/dl (30-150); VLDL Cholesterol 15 mg/dL (0-40)
[2022-09-22 15:33] LABS: C-Reactive Protein 7.2 mg/L (0-4)
[2022-09-22 15:39] LABS: 25-OH Vitamin D, Total 30.4 ng/mL (30-100)
[2022-09-22 15:44] LABS: Hemoglobin A1C 4.6 % (4.0-6.0)
[2022-09-22 15:52] LABS: Thyroid Stimulating Hormone 1.41 uIU/mL (0.465-4.68)
[2022-09-24 08:52] LABS: RA Latex Turbid. 11.7 IU/mL (<14.0)
[2022-09-24 12:58] LABS: C-Peptide 2.2 ng/mL (1.1-4.4); Insulin Level Total 11.5 uIU/mL (2.6-24.9)
[2022-09-24 13:22] LABS: Peripheral Smear Review Scanned Result
[2022-09-24 13:29] LABS: Anti-Cyclic Citrullinated Pept 5 units (0-19)
[2022-09-24 15:48] LABS: Anti-Centromere B Antibodies <0.2 AI (0.0-0.9); Anti-DNA (DS) Ab Qn 1 IU/mL (0-9); Anti-Jo-1 <0.2 AI (0.0-0.9); Anti-Smith Antibody <0.2 AI (0.0-0.9); Antichromatin Antibodies 0.3 AI (0.0-0.9); Antiscleroderma-70 Antibodies <0.2 AI (0.0-0.9); RNP Antibodies <0.2 AI (0.0-0.9); Sjogren's Anti-SS-A <0.2 AI (0.0-0.9); Sjogren's Anti-SS-B <0.2 AI (0.0-0.9)
== END ==
PROVIDERS: PCP Physician Assistant; Visit Provider Physician Assistant
DX: E28.2 Polycystic ovarian syndrome (principal); R59.0 Localized enlarged lymph nodes; E66.9 Obesity, unspecified; Z68.39 Body mass index [BMI] 39.0-39.9, adult; Z79.899 Other long term (current) drug therapy
CPT/HCPCS: 80053; 80061; 82306; 83036; 83525; 84443; 84681; 85025; 85651; 86140; 86200; 86225; 86235; 86431

== ENCOUNTER → 2022-10-02 08:00 | Outpatient (CLI) | payer OTHER, SELFPAY ==
--- NOTE | 2022-10-02 08:04 | MR_ITS ---
PROCEDURE INFORMATION: Exam: MR Abdomen Without and With Contrast Exam date and time: 10/02/2022 8:13 AM Age: 27 years old Clinical indication: Nausea and other: Enlarged lymph nodes; Additional info: Mesenteric lymphadenopathy. Nausea. Enlarged lymph nodes. TECHNIQUE: Imaging protocol: Magnetic resonance imaging of the abdomen without and with contrast. Contrast material: PROHANCE; Contrast volume: 22 ml; Contrast route: IV; COMPARISON: CT ABDOMEN PELVIS W CON 07/19/2022 12:35 AM FINDINGS: Liver: No mass. Gallbladder and bile ducts: Solitary gallstone without gallbladder wall thickening. Pancreas: Unremarkable. No ductal dilation. Spleen: Superior splenic cyst measuring 1.5 cm. Otherwise grossly unremarkable spleen. Adrenal glands: Unremarkable. No mass. Kidneys and ureters: Unremarkable. No solid mass. No hydronephrosis. Stomach and bowel: Visualized stomach and intestines are unremarkable. Intraperitoneal space: No free fluid. Vasculature: No abdominal aortic aneurysm. Lymph nodes: Smaller shotty reactive type mesenteric/retroperitoneal lymph nodes without lymphadenopathy. Similar to previous studies. Bones/joints: Unremarkable. Soft tissues: Unremarkable. Other findings: Study somewhat compromised secondary to image degradation from motion related artifact. IMPRESSION: 1. Less pronounced, waxing/waning shotty reactive type mesenteric/retroperitoneal lymph nodes without lymphadenopathy similar to previous study. Consider continued CT follow-up to document resolution. 2. Cholelithiasis.
--- NOTE | 2022-10-02 08:04 | MR_ITS ---
PROCEDURE INFORMATION: Exam: MR Pelvis Without and With Contrast Exam date and time: 10/02/2022 8:13 AM Age: 27 years old Clinical indication: Other: Enlarged lymph nodes; Additional info: Mesenteric lymphadenopathy. Enlarged lymph nodes. HX of pcos TECHNIQUE: Imaging protocol: Magnetic resonance imaging of the pelvis without and with contrast. Contrast material: PROHANCE; Contrast volume: 22 ml; Contrast route: IV; COMPARISON: CT ABDOMEN PELVIS W CON 07/19/2022 12:35 AM FINDINGS: Intraperitoneal space: Small dependent free fluid collection in cul-de-sac likely physiologic. Urinary bladder: Visualized urinary bladder grossly unremarkable. Reproductive: Visualized uterus and ovaries grossly unremarkable. Lymph nodes: Subcentimeter shotty iliac chain lymph nodes without lymphadenopathy by size criteria. Bones/joints: Unremarkable. No fracture. Soft tissues: Unremarkable. IMPRESSION: 1. Subcentimeter shotty iliac chain lymph nodes without lymphadenopathy. 2. Likely physiologic free fluid collection in cul-de-sac.
== END ==
PROVIDERS: PCP Physician Assistant; Visit Provider Physician Assistant
DX: R59.0 Localized enlarged lymph nodes (principal)
CPT/HCPCS: 72197; 74183; A9576

== ENCOUNTER 2022-11-09 14:40 | Emergency (ER) | payer OTHER, SELFPAY ==
[2022-11-09 14:56] VITALS: BP 0/0; PULSE 0; RESP 0; TEMP -17.7; TEMP 0
== END 2022-11-09 14:58 | disposition left against medical advice (07) ==
LOC: UTC 14:41
PROVIDERS: Emergency Provider Nurse Practitioner; PCP Physician Assistant
DX: Z53.21 Procedure and treatment not carried out due to patient leaving prior to being seen by health care provider (principal)

== ENCOUNTER → 2022-11-11 08:00 | Outpatient (CLI) | payer OTHER, SELFPAY ==
[2022-11-11 08:59] LABS: Basophils % 0.3 % (0.1-2.0); Eosinophils % 0.5 % (0.1-12.0); Hematocrit 41.1 % (37.0-47.0); Hemoglobin 13.5 g/dL (12.2-16.2); Lymphocytes # 1.4 K/mm3 (0.7-4.5); Lymphocytes % 37.5 % (10-50); Mean Corpuscular HGB Conc 32.9 g/dL (31.8-35.4); Mean Corpuscular Hemoglobin 29.3 pg (27.0-31.2); Mean Corpuscular Volume 89.1 fl (81-99); Mean Platelet Volume 9.3 fl (7.4-10.4); Monocytes # 0.2 K/mm3 (0.1-1.0); Monocytes % 6.4 % (1.7-9.3); Neutrophils # 2.1 K/mm3 (1.8-7.8); Neutrophils % 55.3 % (37.0-80.0); Platelet Count 199 K/mm3 (142-424); Red Blood Count 4.61 M/mm3 (4.20-5.40); Red Cell Distribution Width 13.1 % (11.5-17.5); White Blood Count 3.8 K/mm3 (4.8-10.8)
[2022-11-11 09:41] LABS: Alanine Aminotransferase 23 U/L (12-78); Albumin Level 4.6 g/dl (3.5-5.0); Albumin/Globulin Ratio 1.5 (1.1-1.8); Alkaline Phosphatase 35 U/L (38-126); Anion Gap 14.8 mEq/L (5-15); Aspartate Amino Transferase 21 U/L (14-36); Bilirubin,Total 0.5 mg/dl (0.2-1.3); Blood Urea Nitrogen 13 mg/dl (7-17); Calcium 9.2 mg/dl (8.4-10.2); Carbon Dioxide 26 mmol/L (22.0-30.0); Chloride 104 mmol/L (98-107); Estimated Glomerular Filt Rate 100 ml/min (>60); GFR (African American) 121 ML/MIN (>60); Globulin 3.1 g/dL (1.3-3.2); Glucose 74 mg/dl (74-100); Potassium 3.8 mmoL/L (3.5-5.1); Sodium 141 mmol/L (136-145); Total Protein,Serum 7.7 g/dl (6.3-8.2)
== END ==
PROVIDERS: PCP Physician Assistant; Visit Provider Surgery
DX: K80.20 Calculus of gallbladder without cholecystitis without obstruction (principal)
CPT/HCPCS: 36415; 80053; 85025

== ENCOUNTER → 2022-11-14 17:36 | Outpatient (CLI) | payer OTHER, SELFPAY ==
--- NOTE | 2022-11-14 17:00 | ECG_ITS ---
APPROVED REPORT Exam: Resting ECG HR:65 bpm ECG Measurements Heart Rate 65 AXES [place] 119 P 40 QRSd 93 QRS 64 QT 382 T 23 QTc 394 Conclusion SINUS RHYTHM WITH SHORT NY INTERVAL BORDERLINE ECG UNCONFIRMED REPORT Electronically signed by : Jose Miguel Rose MD 11/15/2022 20:15:24
== END ==
PROVIDERS: PCP Physician Assistant; Visit Provider Surgery
DX: Z01.810 Encounter for preprocedural cardiovascular examination (principal); K80.20 Calculus of gallbladder without cholecystitis without obstruction
CPT/HCPCS: 93005

== ENCOUNTER 2022-11-15 07:06 | Day surgery (SDC) | payer OTHER, SELFPAY ==
[2022-11-11 11:00] VITALS: BMI 32.1
[2022-11-12 09:26] LABS: HCG Qualitative, Serum Negative (Negative)
[2022-11-15] VITALS (11 sets, daily range): BP systolic 93–119; BP diastolic 53–75; PULSE 54–80; RESP 12–18; TEMP -17.7–43; O2SAT 95–100
--- NOTE | 2022-11-15 07:13 | EXP.GEN.HP ---
HPI HPI HPI: Patient is 27-year-old female who presents for gallbladder surgery.? Patient had been seen in the emergency department for pelvic pain on 07/19/2022.? She underwent a CT scan at that time which revealed some nonspecific pelvic fluid and mildly enlarged mesenteric lymph nodes.? This prompted her to undergo an outpatient follow-up abdominal MRI on 10/02/2022 which revealed less pronounced mesenteric and retroperitoneal lymph nodes but findings of gallstones.? There was a solitary gallstone.? Patient does describe a longstanding history of digestive issues and GI symptoms.? She has a longstanding history of postprandial nausea and bloating.? She has had some right upper quadrant pain.? She has undergone outpatient EGD and colonoscopy with Dr. Melchor Marks in July 2020 which revealed some bile reflux, linear gastropathy, esophageal dysmotility.? She had a colonoscopy which was normal.? 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 She also works and would like to return to work as soon as possible after potential surgery. I saw her in the office on 10/14/2022. Initially it was felt that she may have incidental asymptomatic gallstone. However she gives a history of of gastrointestinal symptoms consistent with gallbladder disease with bloating and right upper quadrant pain. The options were discussed with her and she wished to pursue cholecystectomy. [facility] Disclaimer: The information contained in this section may have been updated after the patient was seen, as this information can be updated by other users. Medical History Allergies Anxiety Depression Hemorrhoid History of gastroesophageal reflux (GERD) Irritable bowel syndrome (IBS) Kidney stone Migraine PAC (premature atrial contraction) PVC (premature ventricular contraction) Urinary tract infection Surgical History H/O adenoidectomy H/O umbilical hernia repair History of tonsillectomy [place] teeth removed Social History Smoking Status: Current every day smoker tobacco type: e-cigarettes second hand exposure: Yes alcohol intake: never substance use type: denies use current occupational status: other Travel in the last 8 weeks: None household members: spouse and children housing: house current occupational exposures/hazards: No caffeine: Yes Meds Home Medications and Allergies Home Medications Medication Instructions Recorded Confirmed Type metoprolol succinate 25 mg 12.5 mg PO DAILY heart rate #30 11/08/22 Rx tablet,extended release 24 hr tabs clotrimazole 10 mg yesenia 10 mg mucous membrane TID . 11/11/22 History semaglutide 7 mg tablet (Rybelsus) 3 mg PO DAILY . 11/11/22 History New Prescriptions to Start Prescriptions: Allergies Allergy/AdvReac Type Severity Reaction Status Date / Time metoclopramide [From Reglan] Allergy Mild Hives Verified 11/11/22 10:32 azithromycin Allergy Verified 11/11/22 10:32 famotidine [From Pepcid] Allergy Verified 11/11/22 10:32 Exam *Routine HEENT Exam Head: Present normocephalic Eye: Present PERRL ENT: Present mucous membranes moist *Routine Respiratory Exam Respiratory: Present CTA bilaterally *Routine Cardiovascular Exam Cardiovascular: Present RRR *Routine Abdominal Exam Abdominal: Present soft *Routine Rectal Exam Rectal:: deferred *Routine Genitalia Exam Genitalia:: deferred Assessment and Plan *Assessment and plan (1) Gallstones: Status: Acute Category: Medical Code(s): K80.20 - Calculus of gallbladder without cholecystitis without obstruction Plan Plan will be to proceed with laparoscopic and possibly open cholecystectomy.
--- NOTE | 2022-11-15 08:04 | EXP.ANES.CKL ---
[facility] Disclaimer: The information contained in this section may have been updated after the patient was seen, as this information can be updated by other users. Medical History Allergies Anxiety Depression Hemorrhoid History of gastroesophageal reflux (GERD) Irritable bowel syndrome (IBS) Kidney stone Migraine PAC (premature atrial contraction) PVC (premature ventricular contraction) Urinary tract infection Surgical History H/O adenoidectomy H/O umbilical hernia repair History of tonsillectomy [place] teeth removed Family History (Updated 11/15/22 @ 07:18 by Kristina Moreno RN) Other Family history of hypothyroidism Family history of myocardial infarction Social History (Updated 11/15/22 @ 07:19 by Kristina Moreno RN) Smoking Status: Current every day smoker tobacco type: e-cigarettes second hand exposure: Yes alcohol intake: current substance use type: denies use current occupational status: employed Travel in the last 8 weeks: None household members: family and children housing: house lives independently: Yes marital status: education level: college service: No assisted: No current occupational exposures/hazards: No caffeine: Yes special ronaldo needs: No agree to transfusion: No do you feel safe at home: Yes victim of physical abuse: No victim of emotional abuse: No victim of sexual abuse: No would you like helpful sources: No [facility] Anesthesia Checklist Patient Identification Patient Identification: Verbal (Name & ) Structural Data Admitted From: Home Planned Operative Procedure/s: lap sravani Consent for Planned Operative Procedure(s) Verified: Yes NPO Status Verified Time NPO: 00:00 Additional verifications Anesthesia Reactions: No Hx Blood Transfusions: No Blood Transfusion Reaction: No Airway Assessment C-Spine Mobility Assessed: Yes TMJ Mobility Assessed: Yes Dentition: Good Dentition Neurological Assessment Level of Consciousness: Awake, Alert and Appropriate Anesthesia Plan Anesthesia Risk discussed: Yes Anesthesia Plan: Verified ASA Class: II Anesthesia Type: General
--- NOTE | 2022-11-15 08:56 | P.OP_ITS ---
Date of procedure: 11/15/22 Pre-op Diagnosis:: Symptomatic gallstones Post-op Diagnosis:: Same Procedure performed:: Laparoscopic cholecystectomy Surgeon:: Ronald Wright MD FINANCE CONTROLLER:: Paolo Paez Anesthesia: GETA Estimated blood loss (mL): 30 Operative findings:: He had a somewhat distended gallbladder with a moderate-sized gallstone. There is prominent artery tracking along the right lateral gallbladder edge which was preserved. She had some mildly prominent lymph nodes surrounding the cystic duct which were preserved. Operative note:: Patient was taken to the operating room. She was given preoperative intravenous antibiotics. In the operating room she is placed in a supine position. General anesthesia was induced via endotracheal tube. Abdomen was prepped and draped in the standard surgical fashion. Subumbilical skin incision was made and while performing abdominal wall lift Veress needle was inserted. However adequate insufflation pressures were not achieved. Therefore Blunt Trocar Was Inserted a fter Entering the Abdominal Cavity. It Was Secured with 0 Vicryl Stay Sutures. CO2 Pneumoperitoneum Was Achieved to 15 mmHg. Laparoscopic Surveillance Was Carried out. She Was Positioned in Reverse Trendelenburg Left Side down. A Couple 5 Mm Trocars Were Inserted in the Right Upper Abdomen. 10 Mm Trocar Was Inserted in the Epigastrium. Gallbladder Was Grasped Retracted Anteriorly and Superiorly over the Dome of the Liver. Infundibulum of the Gallbladder Was Retracted Anterior Laterally. Blunt Dissection Was Carried out the Neck of the Gallbladder. The Cystic Duct and Cystic Artery Were Clearly Identified and the Critical View of Safety. There Were Some Visible Lymph Nodes along the Cystic Duct Which Were Preserved. Cystic Duct Was Multiply Clipped and Sharply Divided. Cystic Artery Was Carefully Coagulated with ALISON Ultrasonic Robotic Michaela and Divided. The Gallbladder Was Dissected Free from the Liver in a Retrograde Fashion Using ALISON Ultrasonic Harmonic Michaela. Gallbladder Was Placed in an Endo Catch Retrieval Device and Removed from the Peritoneal Cavity Via the Umbilical Trocar Site Which Required Some Minimal Extension of the Fascial Incision for Delivery. Gallbladder Fossa Was Inspected for Hemostasis Which Was Assured. Trocars Were Removed and CO2 Pneumoperitoneum Was Evacuated. Umbilical fascia was closed with several interrupted 0 Vicryl suture. Local anesthetic was infiltrated. Skin incisions were closed with 4-0 Monocryl in a subcuticular fashion. Dermabond and dressings were applied. Condition: stable Disposition: PACU Complications:: None immediately apparent
--- NOTE | 2022-11-15 09:04 | P.PNANES_ITS ---
[facility] Anesthesia Record Part I Anesthesia Record I Intake, IV Amount: 1,500 Estimated blood loss (mL): 0 Urine output (mL): 0 Blood Pressure: 119/64 SaO2: 95 Pulse Rate: 64 Respiratory Rate: 12 Temperature: 97.4 F Patient is:: Awake and Stable Stable to PACU at:: 09:05
[2022-11-17 09:05] VITALS: BP 116/64; PULSE 56; TEMP 36.3
--- NOTE | 2022-11-17 09:05 | P.PNANES_ITS ---
[facility] Anesthesia Record Part II Anesthesia Record Part II Discharge Time: 09:35 Destination: Surgical Day Care (OP Surgery) PACU nurse assessment reviewed?: Yes Patient Condition:: Good Anesthesia Complications:: None Swallowing reflex intact?: Yes Cyanosis?: No Blood Pressure: 116/64 Pulse Rate: 56 Temperature: 97.3 F Mental Status: Alert & Oriented Pain level:: 0 Nausea and/or vomitting:: None Intake, IV Amount: 0
== END 2022-11-15 10:10 | disposition home or self-care (01) ==
PROVIDERS: PCP Physician Assistant; Visit Provider Surgery
PROC: 0FT44ZZ Resection of Gallbladder, Percutaneous Endoscopic Approach (ICD-10-PCS; CPT 47562; principal; 2022-11-15 07:30)
DX: K80.10 Calculus of gallbladder with chronic cholecystitis without obstruction (principal); F17.290 Nicotine dependence, other tobacco product, uncomplicated; Z79.899 Other long term (current) drug therapy
CPT/HCPCS: 47562; 84703; 96374; J2405; J2710

== ENCOUNTER 2022-12-15 16:13 | Emergency (ER) | payer OTHER, SELFPAY ==
[2022-12-15 16:14] VITALS: BP 138/71; PULSE 89; RESP 18; TEMP 36.9; O2SAT 98; BMI 36.7
--- NOTE | 2022-12-15 16:37 | EXP.UTC ---
Discharge Plan Disposition Patient Disposition: Home, Self-Care Condition: Good Prescriptions Prescriptions: New fluticasone propionate [Flonase Allergy Relief] 50 mcg/actuation spray,suspension 1 - 2 spray intranasal DAILY Qty: 16 0RF Rx Instructions: administer into each nostril benzonatate 100 mg capsule 100 mg PO TID PRN (Reason: cough) Qty: 20 0RF No Action metoprolol succinate 25 mg tablet extended release 24 hr 12.5 mg PO DAILY Qty: 30 0RF clotrimazole 10 mg yesenia 10 mg mucous membrane TID Rybelsus 7 mg tablet 3 mg PO DAILY hydrocodone-acetaminophen 5-325 mg Tablet 1 - 2 tab PO Q6H PRN (Reason: Pain) Qty: 21 0RF Referrals Follow up/Referrals: Krystina Feliz PA [Primary Care Provider] - See instructions Activity Restrictions/Add. Instructions Additional Instructions/Restrictions: *Monitor Temp, Over the counter Motrin or Tylenol as directed/as needed Tylenol every 4 hours and Motrin every 6 hours (as long as your family doctor has told you that you can take it) for fever or pain. and straight to ER if unable to lower temp less than 101.0 after medication given *Warm salt water gargles may help to soothe the throat *Throat Lozenges? *Warm fluids like tea with honey may help to soothe the throat? *Sleep elevated *Humidifier/Vaporizer Your throat swab was sent for culture. Those results are typically sent to your primary care. Be sure to follow up in 2-3 days with your family doctor/primary care physician if no improvement so they can review those result and treat if necessary. If you don?t have a primary care doctor, I recommend you get one but in the mean time, you will have to return to a walk in clinic Follow up IMMEDIATELY for new or worsening symptoms or no Noticeable improvement over the next 48-72 hours. 911 for difficulty breathing or swallowing You were tested for today for COVID19 your test result should be back in the next 24 you may check your results on the [facility] Clinical Impressions Clinical Impression: Viral upper respiratory tract infection with cough Stand Alone Forms Stand Alone Forms: Work/School Release Instructions Patient Instructions: Cough, DI for Viral Upper Respiratory Infection -- Adult Discharge ED Provider: Aylin Mortensen [facility] HPI General Stated complaint: Sore throar,NAZARIO Congestion, fever Mode of Arrival: Ambulatory Source of Information: Patient Limitations: No Limitations Time Seen by Provider: 12/15/22 16:37 Description of Symptoms (Recalled from Triage Doc. by RN): Patient complains of chest congestion, cough, muscle aches, headache, chills, sneezing and runny nose for 2 days now. HEENT Symptoms (Recalled from RN notes): Yes Resp Symptoms (Recalled from RN notes): No Skin Symptoms (Recalled from RN notes): No MS Symptoms (Recalled from RN notes): No Functional Status (Recalled from RN notes): wnl History of Present Illness Provider Complaint: Patient states that she has been having sore throat, sinus congestion, chest congestion, cough, chills and runny nose for the last couple of days States that she was at school earlier and had chills and she had a little fever States that she went home took some tylenol and laid down and took a nap and school wanted her to come in and get checked for flu and COVID Related Data Home Medications Medication Instructions Recorded Confirmed clotrimazole 10 mg yesenia 10 mg mucous membrane TID . 11/11/22 11/15/22 semaglutide 7 mg tablet (Rybelsus) 3 mg PO DAILY insulin resisitance 11/11/22 11/15/22 Previous Rx's Medication Instructions Recorded metoprolol succinate 25 mg 12.5 mg PO DAILY heart rate #30 11/08/22 tablet,extended release 24 hr tabs hydrocodone 5 mg-acetaminophen 325 1 - 2 tab PO Q6H PRN Pain #21 tabs 11/15/22 mg tablet benzonatate 100 mg capsule 100 mg PO TID PRN cough #20 caps 12/15/22 fluticasone propionate 50 1 - 2 spr
[2022-12-15 16:52] LABS: UTC Influenza A Antigen Negative (Negative)
[2022-12-15 16:52] LABS: UTC Strep Screen (Rapid) Negative (Negative)
[2022-12-15 16:53] LABS: UTC Influenza B Antigen Negative (Negative)
[2022-12-15 17:04] VITALS: BP 138/71; PULSE 89; RESP 18; TEMP 36.9; O2SAT 98
== END 2022-12-15 17:06 | disposition home or self-care (01) ==
PROVIDERS: Emergency Provider Nurse Practitioner; PCP Physician Assistant
DX: J06.9 Acute upper respiratory infection, unspecified (principal); B34.9 Viral infection, unspecified; R05.9 Cough, unspecified; F17.290 Nicotine dependence, other tobacco product, uncomplicated; F41.9 Anxiety disorder, unspecified; F32.9 Major depressive disorder, single episode, unspecified; Z20.822 Contact with and (suspected) exposure to COVID-19
CPT/HCPCS: 87635; 87804; 87880; 99212; 99214; C9803; G0463; U0003; U0005

== ENCOUNTER → 2023-02-14 16:15 | Outpatient (CLI) | payer OTHER, SELFPAY ==
[2023-02-14 18:51] LABS: Basophils % 0.2 % (0.1-2.0); Eosinophils % 0.4 % (0.1-12.0); Hematocrit 38.8 % (37.0-47.0); Hemoglobin 12.4 g/dL (12.2-16.2); Lymphocytes # 1.8 K/mm3 (0.7-4.5); Lymphocytes % 20.8 % (10-50); Mean Corpuscular Hemoglobin 29.1 pg (27.0-31.2); Mean Corpuscular Volume 90.8 fl (81-99); Mean Platelet Volume 10.2 fl (7.4-10.4); Monocytes # 0.5 K/mm3 (0.1-1.0); Monocytes % 5.7 % (1.7-9.3); Neutrophils # 6.3 K/mm3 (1.8-7.8); Platelet Count 221 K/mm3 (142-424); Red Blood Count 4.27 M/mm3 (4.20-5.40); Red Cell Distribution Width 13.6 % (11.5-17.5); White Blood Count 8.6 K/mm3 (4.8-10.8)
[2023-02-14 18:57] LABS: Monoscreen (Rapid) Negative (Negative)
[2023-02-14 19:10] LABS: Alanine Aminotransferase 17 U/L (12-78); Albumin Level 4.4 g/dl (3.5-5.0); Albumin/Globulin Ratio 1.4 (1.1-1.8); Alkaline Phosphatase 44 U/L (38-126); Anion Gap 13.2 mEq/L (5-15); Aspartate Amino Transferase 18 U/L (14-36); Bilirubin,Total 0.4 mg/dl (0.2-1.3); Blood Urea Nitrogen 17 mg/dl (7-17); Calcium 9.4 mg/dl (8.4-10.2); Carbon Dioxide 27 mmol/L (22.0-30.0); Chloride 104 mmol/L (98-107); Cholesterol 130 mg/dl (140-200); Estimated Glomerular Filt Rate 85 ml/min (>60); GFR (African American) 103 ML/MIN (>60); Globulin 3.2 g/dL (1.3-3.2); Glucose 67 mg/dl (74-100); HDL Cholesterol 44 mg/dl (40-60); Potassium 4.2 mmoL/L (3.5-5.1); Sodium 140 mmol/L (136-145); Total Protein,Serum 7.6 g/dl (6.3-8.2); Triglycerides 77 mg/dl (30-150); VLDL Cholesterol 15 mg/dL (0-40)
[2023-02-14 19:22] LABS: Direct LDL Cholesterol 68.42 mg/dL (100-129)
[2023-02-14 19:29] LABS: 25-OH Vitamin D, Total 34.3 ng/mL (30-100); Free Thyroxine Index 2.2 ug/dL (5.93-13.13); T4 (Thyroxine) 6.7 ug/dl (5.53-11.0); Triiodothryronine (T3) Uptake 33 % (23.5-40.5)
[2023-02-14 19:40] LABS: Thyroid Stimulating Hormone 1.31 uIU/mL (0.465-4.68)
[2023-02-14 19:42] LABS: Thyroid Stimulating Hormone 1.33 uIU/mL (0.465-4.68)
[2023-02-14 19:59] LABS: Vitamin B12 487 pg/mL (239-931)
[2023-02-16 15:33] LABS: EBV Ab VCA, IgM <36.0 U/mL (0.0-35.9); EBV Nuclear Antigen Ab, IgG >600.0 U/mL (0.0-17.9); Testosterone,Total 12 ng/dL (13-71); Thyroid Peroxidase Antibodies 10 IU/mL (0-34)
[2023-02-17 10:54] LABS: Thyroid Stimulating Immunoglob <0.10 IU/L (0.00-0.55)
[2023-02-23 17:56] LABS: Free Testosterone (Direct) 0.4 pg/mL (0.0-4.2); Testosterone, Total, LC/MS 10.6 ng/dL (10.0-55.0)
== END ==
PROVIDERS: PCP Physician Assistant; Visit Provider Physician Assistant
DX: R10.9 Unspecified abdominal pain (principal); R42 Dizziness and giddiness; R59.0 Localized enlarged lymph nodes; E66.9 Obesity, unspecified; Z68.36 Body mass index [BMI] 36.0-36.9, adult; Z79.899 Other long term (current) drug therapy
CPT/HCPCS: 80053; 80061; 82306; 82607; 84403; 84436; 84443; 84445; 84479; 85025; 86318; 86376; 86664; 86665; 87086

== ENCOUNTER 2023-03-08 18:20 | Emergency (ER) | payer OTHER, SELFPAY ==
[2023-03-08 18:45] VITALS: BP 97/52; PULSE 76; RESP 20; TEMP 36.9; O2SAT 98; BMI 32.1
--- NOTE | 2023-03-08 18:57 | EXP.UTC ---
Discharge Plan Disposition Patient Disposition: Home, Self-Care Condition: Good Prescriptions Prescriptions: New [id number] [Bromfed DM] 2-30-10 mg/5 mL Syrup 5 ml PO Q6H PRN (Reason: Cough) Qty: 240 0RF ondansetron 4 mg Tablet,Disintegrating 4 mg PO Q8H PRN (Reason: Nausea) Qty: 12 0RF No Action magnesium citrate Solution 296 ml PO DAILY PRN (Reason: constipation) Qty: 296 0RF Trulance 3 mg tablet 3 mg PO DAILY Qty: 30 2RF metoprolol succinate 25 mg tablet extended release 24 hr 12.5 mg PO DAILY Qty: 30 0RF levothyroxine 25 mcg tablet 25 mcg PO DAILY Qty: 30 2RF Rybelsus 7 mg tablet 3 mg PO DAILY fluticasone propionate [Flonase Allergy Relief] 50 mcg/actuation spray,suspension 1 - 2 spray intranasal DAILY Qty: 16 0RF Rx Instructions: administer into each nostril Referrals Follow up/Referrals: Krystina Feliz PA [Primary Care Provider] - See instructions Activity Restrictions/Add. Instructions Additional Instructions/Restrictions: Drink plenty of fluids. Take tylenol for pain or fever. Follow up with your regular doctor. GO TO THE ER FOR ANY WORSENING SYMPTOMS Quarantine until you know the results of your covid-19 test. Notify your school or workplace of your results and follow their instructions regarding return to work/school. Clinical Impressions Clinical Impression: Acute viral syndrome Stand Alone Forms Stand Alone Forms: Work/School Release Instructions Patient Instructions: Coronavirus Disease 2019, Preventing the Spread of Coronavirus Discharge Instructions Discharge ED Provider: Larry Neri [facility] General Stated complaint: exposed to covid Mode of Arrival: Ambulatory Source of Information: Patient Limitations: No Limitations Time Seen by Provider: 03/08/23 18:57 Description of Symptoms (Recalled from Triage Doc. by RN): PATIENT C/O SORE THROAT, BODY ACHES, AND CHILLS THAT STARTED TODAY HEENT Symptoms (Recalled from RN notes): Yes Resp Symptoms (Recalled from RN notes): No Skin Symptoms (Recalled from RN notes): No MS Symptoms (Recalled from RN notes): No Functional Status (Recalled from RN notes): WNL History of Present Illness Provider Complaint: She states that for the pas 2 days she has had body aches, chills, fatigue, scratchy sore throat and malaise. Related Data Home Medications Medication Instructions Recorded Confirmed semaglutide 7 mg tablet (Rybelsus) 3 mg PO DAILY insulin resisitance 11/11/22 02/14/23 Previous Rx's Medication Instructions Recorded metoprolol succinate 25 mg 12.5 mg PO DAILY heart rate #30 11/08/22 tablet,extended release 24 hr tabs fluticasone propionate 50 1 - 2 spray intranasal DAILY #16 12/15/22 mcg/actuation nasal grams spray,suspension (Flonase Allergy Relief) magnesium citrate 296 ml PO DAILY PRN constipation 02/14/23 #296 mL plecanatide 3 mg tablet (Trulance) 3 mg PO DAILY #30 tabs 02/14/23 levothyroxine 25 mcg tablet 25 mcg PO DAILY #30 tabs 02/15/23 [id number]-YR 5 ml PO Q6H PRN Cough #240 mL 03/08/23 2 mg-30 mg-10 mg/5 mL oral syrup (Bromfed DM) ondansetron 4 mg disintegrating 4 mg PO Q8H PRN Nausea #12 tabs 03/08/23 tablet Allergies Allergy/AdvReac Type Severity Reaction Status Date / Time metoclopramide [From Reglan] Allergy Mild Hives Verified 02/14/23 16:03 azithromycin Allergy Verified 02/14/23 16:03 famotidine [From Pepcid] Allergy Verified 02/14/23 16:03 Worker's Comp Is this a Worker's Comp case?: No [facility] Disclaimer: The information contained in this section may have been updated after the patient was seen, as this information can be updated by other users. Medical History Allergies Anxiety Depression Hemorrhoid History of gastroesophageal reflux (GERD) Irritable bowel syndrome (IBS) Kidney stone Migraine PAC (premature atrial
[2023-03-08 19:09] VITALS: BP 97/52; PULSE 76; RESP 20; TEMP 36.9; O2SAT 98
== END 2023-03-08 19:18 | disposition home or self-care (01) ==
PROVIDERS: Emergency Provider Nurse Practitioner Family; PCP Physician Assistant
DX: R07.0 Pain in throat (principal); R53.81 Other malaise; F17.290 Nicotine dependence, other tobacco product, uncomplicated; F41.9 Anxiety disorder, unspecified; F32.A Depression, unspecified
CPT/HCPCS: 99212; 99214; G0463

== ENCOUNTER → 2023-03-31 23:47 | Outpatient (CLI) | payer OTHER, SELFPAY ==
[2023-03-31 18:14] LABS: Adenovirus,PCR Not Detected (NotDetected); Bordetella Pertussis Not Detected (NotDetected); Chlamydophila Pneumoniae, PCR Not Detected (NotDetected); Coronavirus 19, PCR Not Detected (NotDetected); Coronavirus 229E Not Detected (NotDetected); Coronavirus NL63 Not Detected (NotDetected); Coronavirus OC43 Not Detected (NotDetected); Coronovirus HKU1,PCR Not Detected (NotDetected); Human Metapneumovirus Not Detected (NotDetected); Influenza A, PCR Not Detected (NotDetected); Influenza AH1, 2009 Not Detected (NotDetected); Influenza AH1, PCR Not Detected (NotDetected); Influenza AH3,PCR Not Detected (NotDetected); Influenza B, PCR Not Detected (NotDetected); Mycoplasma Pneumoniae, PCR Not Detected (NotDetected); Parainfluenza 1, PCR Not Detected (NotDetected); Parainfluenza 2, PCR Not Detected (NotDetected); Parainfluenza 3, PCR Not Detected (NotDetected); Parainfluenza 4, PCR Not Detected (NotDetected); Respiratory Syncytial Virus Not Detected (NotDetected); Rhinovirus/Enterovirus Not Detected (NotDetected)
== END ==
PROVIDERS: PCP Physician Assistant; Visit Provider Nurse Practitioner Family
DX: R06.02 Shortness of breath (principal)
CPT/HCPCS: 87581; 87632; 87798

== ENCOUNTER 2023-05-29 15:43 | Emergency (ER) | payer SELFPAY ==
[2023-05-29 15:55] VITALS: BP 130/83; PULSE 93; RESP 20; TEMP 38.1; O2SAT 96; BMI 35.3
--- NOTE | 2023-05-29 16:08 | EXP.UTC ---
Discharge Plan Disposition Patient Disposition: Home, Self-Care Condition: Good Prescriptions Prescriptions: New ondansetron 4 mg tablet,disintegrating 4 mg PO Q8H PRN (Reason: nausea and vomiting) Qty: 10 0RF No Action minocycline 100 mg capsule 100 mg PO BID 10 Days Qty: 20 0RF clindamycin phosphate 1 % solution 1 applic topical DAILY Qty: 60 1RF prednisone 20 mg tablet 20 mg PO BID 5 Days Qty: 10 0RF benzonatate 100 mg capsule 100 mg PO TID PRN (Reason: cough) Qty: 30 0RF nystatin 100,000 unit/mL suspension 10 ml PO QID 10 Days Qty: 400 0RF Rx Instructions: swish and swallow fluconazole 150 mg tablet 150 mg PO Q OTHER DAY Qty: 2 0RF metronidazole [Metrogel] 1 % gel 1 applic topical DAILY 5 Days Qty: 60 0RF Referrals Follow up/Referrals: Krystina Feliz PA [Primary Care Provider] - See instructions Activity Restrictions/Add. Instructions Additional Instructions/Restrictions: *Monitor Temp, Over the counter Motrin or Tylenol as directed/as needed Tylenol every 4 hours and Motrin every 6 hours (as long as your family doctor has told you that you can take it) for fever or pain. and straight to ER if unable to lower temp less than 101.0 after medication given *Warm salt water gargles may help to soothe the throat *Throat Lozenges? *Warm fluids like tea with honey may help to soothe the throat? *Sleep elevated *Humidifier/Vaporizer *Your throat swab was sent for culture. Those results are typically sent to your primary care. Be sure to follow up in 2-3 days with your family doctor/primary care physician if no improvement so they can review those result and treat if necessary. If you don?t have a primary care doctor, I recommend you get one but in the mean time, you will have to return to a walk in clinic Follow up IMMEDIATELY for new or worsening symptoms or no Noticeable improvement over the next 48-72 hours. 911 for difficulty breathing or swallowing You were tested for today for ?Upper Respiratory Panel with COVID19 your test result should be back in the next 24 hours You may check your results on the [facility] My Health Portal if your COVID test is positive you must Quarantine for 5 days Clinical Impressions Clinical Impression: Acute viral syndrome Stand Alone Forms Stand Alone Forms: Work/School Release Instructions Patient Instructions: DI for Viral Upper Respiratory Infection -- Adult, DI for Fever (Symptom) -- Adult Discharge ED Provider: Aylin Mortensen [facility] [place] HPI General Stated complaint: Fever,bodyaches,NAZARIO,chills Mode of Arrival: Ambulatory Source of Information: Patient Limitations: No Limitations Time Seen by Provider: 05/29/23 16:08 Description of Symptoms (Recalled from Triage Doc. 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
[2023-05-29 16:15] LABS: UTC Influenza A Antigen Negative (Negative); UTC Strep Screen (Rapid) Negative (Negative)
[2023-05-29 16:16] LABS: UTC Influenza B Antigen Negative (Negative)
[2023-05-29 16:18] VITALS: BP 119/86; PULSE 101; RESP 19; TEMP 37.1; O2SAT 99
[2023-05-29 16:28] LABS: Adenovirus,PCR Not Detected (NotDetected); Coronavirus 19, PCR Not Detected (NotDetected); Coronavirus 229E Not Detected (NotDetected); Coronavirus NL63 Not Detected (NotDetected); Coronavirus OC43 Not Detected (NotDetected); Coronovirus HKU1,PCR Not Detected (NotDetected); Human Metapneumovirus Not Detected (NotDetected); Influenza A, PCR Not Detected (NotDetected); Influenza AH1, 2009 Not Detected (NotDetected); Influenza AH1, PCR Not Detected (NotDetected); Influenza AH3,PCR Not Detected (NotDetected); Influenza B, PCR Not Detected (NotDetected); Parainfluenza 1, PCR Not Detected (NotDetected); Parainfluenza 2, PCR Not Detected (NotDetected); Parainfluenza 3, PCR Not Detected (NotDetected); Parainfluenza 4, PCR Not Detected (NotDetected); Respiratory Syncytial Virus Not Detected (NotDetected); Rhinovirus/Enterovirus Not Detected (NotDetected)
== END 2023-05-29 16:31 | disposition home or self-care (01) ==
LOC: ER 15:46 → UTC 15:47
PROVIDERS: Emergency Provider Nurse Practitioner; PCP Physician Assistant
DX: R51.9 Headache, unspecified (principal); R50.9 Fever, unspecified; R09.81 Nasal congestion; R11.0 Nausea; R07.0 Pain in throat; F17.210 Nicotine dependence, cigarettes, uncomplicated
CPT/HCPCS: 87632; 87635; 87804; 87880; 99212; 99214; G0463

== ENCOUNTER 2023-08-18 07:24 | Outpatient (CLI) | payer SELFPAY | END 2023-08-18 23:59 | PROVIDERS: PCP Family Medicine; Visit Provider Family Medicine | DX: N94.19 Other specified dyspareunia (principal) | CPT/HCPCS: 87086 ==

== ENCOUNTER 2023-08-18 13:59 | Outpatient (CLI) | payer OTHER, SELFPAY | END 2023-08-18 23:59 | LOC: LAB.DROPOF 13:59 | PROVIDERS: PCP Family Medicine; Visit Provider Family Medicine | DX: B37.32 Chronic candidiasis of vulva and vagina (principal); N94.19 Other specified dyspareunia; L29.2 Pruritus vulvae | CPT/HCPCS: 87210 ==

== ENCOUNTER 2023-08-18 14:16 | Outpatient (CLI) | payer SELFPAY ==
[2023-08-18 15:13] LABS: C-Reactive Protein 2.4 mg/L (0-4)
[2023-08-18 15:44] LABS: Erythrocyte Sedimentation Rate 45 mm/hr (0-20)
[2023-08-19 08:22] LABS: Immunoglobulin G, Qn 1249 mg/dL (586-1602)
[2023-08-19 11:26] LABS: Anti-DNA (DS) Ab Qn <1 IU/mL (0-9)
[2023-08-19 16:12] LABS: Deamidated Gliadin Abs, IgA 6 units (0-19); Deamidated Gliadin Abs, IgG 4 units (0-19); Tissue Transglutaminase IgA Ab <2 U/mL (0-3); Tissue Transglutaminase IgG Ab <2 U/mL (0-5)
[2023-08-19 16:13] LABS: EBV Ab VCA, IgM <36.0 U/mL (0.0-35.9); EBV Nuclear Antigen Ab, IgG >600.0 U/mL (0.0-17.9)
[2023-08-30 10:38] LABS: Rheumatoid Factor IGA < 7 U (<7)
== END 2023-08-18 23:59 ==
PROVIDERS: PCP Physician Assistant; Visit Provider Family Medicine
DX: E28.2 Polycystic ovarian syndrome (principal); R42 Dizziness and giddiness; K90.0 Celiac disease; E66.9 Obesity, unspecified; Z68.36 Body mass index [BMI] 36.0-36.9, adult
CPT/HCPCS: 36415; 82784; 83516; 85651; 86140; 86225; 86431; 86664; 86665; 87086

== ENCOUNTER 2023-09-29 14:45 | Emergency (ER) | payer SELFPAY ==
--- NOTE | 2023-09-29 16:03 | EXP.UTC ---
Discharge Plan Disposition Patient Disposition: Home, Self-Care Condition: Good Prescriptions Prescriptions: New amoxicillin 875 mg tablet 875 mg PO Q12H Qty: 20 0RF methylprednisolone 4 mg Tablets,Dose Pack 4 mg PO DIRECTED 6 Days Qty: 21 0RF Rx Instructions: Take 1 pack as directed for 6 days [id number] [Bromfed DM] 2-30-10 mg/5 mL Syrup 5 ml PO Q6H PRN (Reason: Cough) Qty: 240 0RF No Action benzonatate 100 mg capsule 100 mg PO TID PRN (Reason: cough) Qty: 30 0RF Rx Instructions: May take 2 capsules(200mg) at a time if one does not provide relief. Referrals Follow up/Referrals: Krystina Feliz PA [Primary Care Provider] - See instructions Activity Restrictions/Add. Instructions Additional Instructions/Restrictions: Drink plenty of fluids. Take tylenol or ibuprofen for pain or fever. Take the medications as directed. Follow up with your regular doctor. GO TO THE ER FOR ANY WORSENING SYMPTOMS Clinical Impressions Clinical Impression: Sinusitis, Bronchitis Stand Alone Forms Stand Alone Forms: Work/School Release Instructions Patient Instructions: Sinusitis, DI for Sinusitis Discharge ED Provider: Larry Neri [facility] General Stated complaint: congestion cough sinus pressure Time Seen by Provider: 09/29/23 16:01 History of Present Illness Provider Complaint: She states that for the past 4 days she has had worsening sinus congestion and sore throat. She has had chills and low grade fever too. Related Data Previous Rx's Medication Instructions Recorded benzonatate 100 mg capsule 100 mg PO TID PRN cough #30 caps 09/27/23 amoxicillin 875 mg tablet 875 mg PO Q12H #20 tabs 09/29/23 vttihgxbqhnpzpk-uhesjsyezptcacn-WG 5 ml PO Q6H PRN Cough #240 mL 09/29/23 2 mg-30 mg-10 mg/5 mL oral syrup (Bromfed DM) methylprednisolone 4 mg tablets in 4 mg PO DIRECTED 6 days #21 tabs 09/29/23 a dose pack Allergies Allergy/AdvReac Type Severity Reaction Status Date / Time metoclopramide [From Reglan] Allergy Mild Hives Verified 09/27/23 13:41 azithromycin Allergy Verified 09/27/23 13:41 famotidine [From Pepcid] Allergy Verified 09/27/23 13:41 levothyroxine AdvReac Intermediate hot flashes Verified 09/27/23 13:41 [facility] Disclaimer: The information contained in this section may have been updated after the patient was seen, as this information can be updated by other users. Medical History PAC (premature atrial contraction) PVC (premature ventricular contraction) Irritable bowel syndrome (IBS) Hemorrhoid Allergies Depression Anxiety Urinary tract infection Kidney stone History of gastroesophageal reflux (GERD) Migraine Surgical History H/O umbilical hernia repair [place] teeth removed H/O adenoidectomy History of tonsillectomy Family History Other Family history of hypothyroidism Family history of myocardial infarction Social History Smoking Status: Current every day smoker tobacco type: e-cigarettes second hand exposure: Yes alcohol intake: current substance use type: denies use current occupational status: employed Travel in the last 8 weeks: None household members: family and children housing: house lives independently: Yes marital status: education level: college service: No intermediate: No current occupational exposures/hazards: No caffeine: Yes special ronaldo needs: No agree to transfusion: No do you feel safe at home: Yes victim of physical abuse: No victim of emotional abuse: No victim of sexual abuse: No would you like helpful sources: No ROS Obtained: Yes All systems reviewed & no additional complaints except as documented Constitutional Constitutional: Reports chills and Reports fever(s) Eyes Eyes: Denies eye discharge ENT Ears, Nose, Mouth, and Throat: Reports as per HPI Cardiovascular Cardiovascular: Denies chest pain Respiratory Respiratory: Denies chest congestion and Reports cough Gastrointestinal Gastrointestingal: Reports nausea; Denies abdominal pain, constipation, cramping, diarrhea or vomiting Musculoskeletal Musculoskeletal: Denies arthralgias Integumentary/Breasts Skin/Breast: Denies rash Neurologic Neurologic: Denies paresthesias Physical Exam General General appearance: alert and in no apparent distress Head Head exam: atraumatic, normocephalic and normal inspection Eye Eye exam: Present normal appearance, PERRL and EOMI ENT ENT exam: Present mucous membranes moist and normal external ear exam Expanded ENT Exam TM/Canal exam: Bilateral TM: erythema and bulging Nose exam: Absent sinus tenderness Mouth exam: Present normal external inspection; Absent drooling Teeth exam: Present normal inspection Throat exam: Present tonsillar erythema, tonsillomegaly and tonsillar exudate Neck Neck exam: Present normal inspection, full ROM and trachea midline; Absent tenderness, meningismus or lymphadenopathy Chest Chest inspection: Present normal inspection and symmetric chest wall rise; Absent tenderness Respiratory Respiratory exam: Present normal lung sounds bilaterally; Absent respiratory distress, wheezes or stridor Cardiovascular Cardiovascular exam: Present regular rate and normal rhythm; Absent systolic murmur or diastolic murmur Abdominal Exam Abdominal exam: Present soft and normal bowel sounds; Absent distention, tenderness, guarding, rebound or rigidity Extremities Exam Extremities exam: Present normal inspection and normal capillary refill; Absent calf tenderness Back Exam Back exam: Present normal inspection and full ROM; Absent tenderness, CVA tenderness (R) or CVA tenderness (L) Neurological Exam Neurological exam: Present alert, oriented X3 and CN II-XII intact Psychiatric Psychiatric exam: Present normal affect and normal mood Skin Skin exam: Present warm, dry, intact and normal color Medical Decision Making Medical Records Medical records reviewed: No I reviewed the patient's medical records. Alli Inquiry Pt receiving controlled substance: No Lab Data Lab results reviewed: Yes I reviewed the patient's lab results.
[2023-09-29 16:10] VITALS: BP 118/70; PULSE 72; RESP 20; TEMP 37.1; O2SAT 99; BMI 36.1
[2023-09-29 16:36] LABS: UTC Influenza A Antigen Negative (Negative); UTC Influenza B Antigen Negative (Negative); UTC Strep Screen (Rapid) Negative (Negative)
[2023-09-29 16:50] VITALS: BP 118/70; PULSE 72; RESP 20; TEMP 37.1; O2SAT 99
== END 2023-09-29 16:52 | disposition home or self-care (01) ==
PROVIDERS: Emergency Provider Nurse Practitioner Family; PCP Physician Assistant
DX: J01.90 Acute sinusitis, unspecified (principal); J40 Bronchitis, not specified as acute or chronic; R09.81 Nasal congestion; R07.0 Pain in throat; R50.9 Fever, unspecified; F17.290 Nicotine dependence, other tobacco product, uncomplicated
CPT/HCPCS: 87804; 87880; 99212; 99214; G0463

== ENCOUNTER 2023-10-03 07:45 | Emergency (ER) | payer SELFPAY ==
[2023-10-03 07:54] VITALS: BP 112/66; PULSE 71; RESP 18; TEMP 36.7; O2SAT 96; BMI 35.2
--- NOTE | 2023-10-03 08:05 | XR_ITS ---
FINAL REPORT CLINICAL HISTORY: cough x 7 days, worsening, LLL willian COMPARISON: 11/21/2021 FINDINGS: Two views of the chest were obtained. The heart size and pulmonary vascularity are within normal limits. The mediastinum is normal. No acute pulmonary abnormality is identified. There is no pneumothorax. The bony thorax is intact. IMPRESSION: No active cardiopulmonary disease. Reviewed, Interpreted and Dictated by Ronald Latham III, MD Transcribed by Ava Newman Authenticated and [facility]
--- NOTE | 2023-10-03 08:07 | ED_ITS ---
Discharge Plan Disposition Patient Disposition: Home, Self-Care Condition: Good Prescriptions Prescriptions: New ketorolac 10 mg tablet 10 mg PO Q8H PRN (Reason: pain) 1 Days Qty: 14 0RF fluconazole 150 mg tablet 150 mg PO Q3D 14 Days Qty: 5 0RF Rx Instructions: 150 mg q72 hours for 14 days (5 doses) for recurrent vaginal candidiasis No Action benzonatate 100 mg capsule 100 mg PO TID PRN (Reason: cough) Qty: 30 0RF Rx Instructions: May take 2 capsules(200mg) at a time if one does not provide relief. amoxicillin 875 mg tablet 875 mg PO Q12H Qty: 20 0RF methylprednisolone 4 mg Tablets,Dose Pack 4 mg PO DIRECTED 6 Days Qty: 21 0RF Rx Instructions: Take 1 pack as directed for 6 days [id number] [Bromfed DM] 2-30-10 mg/5 mL Syrup 5 ml PO Q6H PRN (Reason: Cough) Qty: 240 0RF Referrals Follow up/Referrals: Krystina Feliz PA [Primary Care Provider] - See instructions Activity Restrictions/Add. Instructions Additional Instructions/Restrictions: You were evaluated in the emergency department today. We feel that your symptoms are related to bronchitis from a viral upper respiratory infection. 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 You may also take Tylenol in addition to this every 4-6 hours. 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 Given your recurrent yeast infections, I recommend picking up the prescription for fluconazole and taking as prescribed. You will take it every 3 days for 5 doses (2 weeks). Please follow-up with gynecology over the next 3 to 5 days for reassessment of your current vaginal infections. Return to the e mergency department for any new or worsening symptoms. Clinical Impressions Clinical Impression: Bronchitis, Viral URI with cough, Recurrent candidiasis of vagina, Pleurisy Stand Alone Forms Stand Alone Forms: Work/School Release Instructions Patient Instructions: DI for Vaginal Yeast Infection, DI for Bacterial Vaginosis, DI for Acute Bronchitis, DI for Viral Upper Respiratory Infection -- Adult Discharge ED Provider: Sydnie Carter General Adult HPI General Chief complaint: Upper Respiratory Infection Stated complaint: cough, sob, sore throat Time Seen by Provider: 10/03/23 07:49 Mode of Arrival: Ambulatory Source of Information: Patient Limitations: No Limitations Description of Symptoms (Recalled from ER Triage Doc. by RN): Patient reports cough, congestion, and sore throat since last Tuesday. States she was seen by Dr. Guillory and seen in the [facility] and was treated for bronchitis. States she has tested neg for strep, COVID, and flu. Currently taking prednisone but states she hasn't taken it all weekend. History of Present Illness HPI narrative: This patient is a 28-year-old female who denies significant past medical history presenting with concern for sore throat, chills, cough, and burning in her left lung that has been going on since 09/26/2023. She states that her symptoms have been progressively worsening since. 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 She was told she likely had a viral upper respiratory infection and was given instructions for supportive management. She states that despite this, she had been feeling worse, so she went to [facility] 09/29/2023 and was told she had bronchitis. She was given steroids at that time, and she states that she has not been taking them. She has been tested for strep, COVID, and flu and both visits and both times came back negative. She states that she feels very fatigued and generally weak. She denies any history of cardiopulmonary issues. Related Data Previous Rx's Medication Instructions Recorded benzonatate 100 mg capsule 100 mg PO TID PRN cough #30 caps 09/27/23 amoxicillin 875 mg tablet 875 mg PO Q12H #20 tabs 09/29/23 iekumroqscaycay-ygwzfjlcsuhcrel-PW 5 ml PO Q6H PRN Cough #240 mL 09/29/23 2 mg-30 mg-10 mg/5 mL oral syrup (Bromfed DM) methylprednisolone 4 mg tablets in 4 mg PO DIRECTED 6 days #21 tabs 09/29/23 a dose pack fluconazole 150 mg tablet 150 mg PO Q3D 14 days #5 tabs 10/03/23 ketorolac 10 mg tablet 10 mg PO Q8H PRN pain 1 day #14 10/03/23 tabs Allergies Allergy/AdvReac Type Severity Reaction Status Date / Time metoclopramide [From Reglan] Allergy Mild Hives Verified 09/27/23 13:41 azithromycin Allergy Verified 09/27/23 13:41 famotidine [From Pepcid] Allergy Verified 09/27/23 13:41 levothyroxine AdvReac Intermediate hot flashes Verified 09/27/23 13:41 PFSH [facility] Disclaimer: The information contained in this section may have been updated after the patient was seen, as this information can be updated by other users. Medical History PAC (premature atrial contraction) PVC (premature ventricular contraction) Irritable bowel syndrome (IBS) Hemorrhoid Allergies Depression Anxiety Urinary tract infection Kidney stone History of gastroesophageal reflux (GERD) Migraine Surgical History H/O umbilical hernia repair [place] teeth removed H/O adenoidectomy History of tonsillectomy Family History Other Family history of hypothyroidism Family history of myocardial infarction Social History Smoking Status: Current every day smoker tobacco type: e-cigarettes second hand exposure: Yes alcohol intake: current substance use type: denies use current occupational status: employed Travel in the last 8 weeks: None household members: family and children housing: house lives independently: Yes marital status: education level: college service: No usp: No current occupational exposures/hazards: No caffeine: Yes special ronaldo needs: No agree to transfusion: No do you feel safe at home: Yes victim of physical abuse: No victim of emotional abuse: No victim of sexual abuse: No would you like helpful sources: No ROS Obtained: Yes All systems reviewed & no additional complaints except as documented Physical Exam General General appearance: alert and in no apparent distress Head Head exam: atraumatic and normocephalic Eye Eye exam: Present normal appearance, PERRL and EOMI ENT ENT exam: Present normal exam, normal oropharynx, mucous membranes moist and normal external ear exam Neck Neck exam: Present normal inspection, full ROM and trachea midline; Absent tenderness Chest Chest inspection: Present normal inspection and symmetric chest wall rise; Absent tenderness Respiratory Respiratory exam: Present other (Ronchi in the left lower lung base); Absent respiratory distress, wheezes, stridor or accessory muscle use Cardiovascular Cardiovascular exam: Present regular rate and normal rhythm Abdominal Exam Abdominal exam: Present soft; Absent distention, tenderness or guarding Extremities Exam Extremities exam: Present normal inspection, full ROM and normal capillary refill; Absent tenderness or edema Back Exam Back exam: Present normal inspection and full ROM; Absent tenderness Neurological Exam Neurological exam: Present alert, oriented X3, CN II-XII intact and normal gait; Absent motor sensory deficit Psychiatric Psychiatric exam: Present normal affect and normal mood Skin Skin exam: Present warm and dry Medical Decision Making Medical Records Medical records reviewed: Yes I reviewed the patient's medical records. Alli Inquiry Pt receiving controlled substance: No Vital Signs: 10/03/23 07:54 Temperature 98.0 F Temperature Source Oral Pulse Rate [Radial] 71 Respiratory Rate 18 Blood Pressure [Right Arm] 112/66 Blood Pressure Mean [Right Arm] 81 Blood Pressure Source [Right Arm] Automatic Cuff Blood Pressure Position [Right Arm] Sitting 02 Sat by Pulse Oximetry 96 Oxygen Delivery Method Room Air Lab Data Lab results reviewed: Yes I reviewed the patient's lab results. Lab Results 10/03/23 08:30: Urine Color Yellow, Urine Appearance Clear, Urine pH 6.0, Ur Specific [place] >= 1.030, Urine Protein Negative, Urine Glucose (UA) Negative, Urine Ketones Trace, Urine Blood Trace-i, Urine Nitrate Negative, Urine Bilirubin Negative, Urine Urobilinogen 1.0, Ur Leukocyte Esterase Negative, Urine RBC None, Urine WBC Occasional, Ur Squamous Epith Cells Occasional, Urine Bacteria Trace, Urine HCG, Qual Negative Orders (Tests/Meds): ED MEDICATIONS Discontinued Medications Generic Name Dose Route Start Last Admin Trade Name Zenonq PRN Reason Stop Dose Admin Acetaminophen 1,000 mg 10/03/23 09:34 Acetaminophen 500mg Tab PO 10/03/23 09:35 ONCE ONE Ketorolac Tromethamine 30 mg 10/03/23 09:34 Ketorolac 30mg/Ml Vial IM 10/03/23 09:35 ONCE ONE ORDERS Category Date Time Status XR chest 2V Stat Exams 10/03/23 08:05 Taken Urinalysis and Microscopic Stat Lab 10/03/23 08:30 Completed Urine , HCG Qual. Stat Lab 10/03/23 08:30 Completed Medical Decision Narrative: In summary, this patient is a 28-year-old female presenting to the Emergency Department for evaluation of persistent and worsening cough for the last 7-8 days. Differential diagnoses considered include but are not limited to viral syndrome, pneumonia, bronchitis, reactive airway disease. Ruling out the most morbid conditions drove assessment. On exam, the patient is nontoxic-appearing. She has reassuring vital signs on cardiac telemetry. She does have rhonchi heard in the left lower lung base but otherwise clear lung sounds. Workup included 2 view chest x-ray. I independently interpreted x-ray prior to the radiologist read and noted no acute focal consolidation concerning for pneumonia. Please see their read for final interpretation. On reassessment, patient states that she is also had issues with recurrent bacterial vaginosis as well as yeast infections. She states that she gets a flare of BV with every menstrual cycle, and then afterwards she will get a yeast infection after completing Flagyl. 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 She notes concern that she is currently dealing with a yeast infection. She states she is having white discharge and vaginal itching/burning. She denies concern for STI. Labs were obtained that demonstrated negative test and no urinary tract infection. At this time, feel patient likely has pleurisy in the setting of viral bronchitis. I advised that around 7 to 10-day cory, antibiotics could be considered, however the patient has history of recurrent yeast infections and no evidence of pneumonia on chest x-ray, so I do not feel that antibiotics would be beneficial to her. I notified her of this. She notes she is currently dealing with these infection, and she has failed treatment with a 2 dose regimen of fluconazole. Given this, we will give her a prolonged course of fluconazole. I advised that she follow-up very closely with WOODWORKING MACHINE OPERATOR as she may have atrophic vaginitis or some other issue causing her to have these recurrent infections. She expressed understanding and agreement. She was given IM Toradol for symptomatic improvement of her pleurisy. At this time, I feel patient is appropriate for discharge. She is given prescription for fluconazole as well as oral Toradol. Strict return precautions were given, and the patient was discharged in stable condition after all questions were answered. Critical Care Critical Care Time Critical Care Time: No
[2023-10-03 08:41] LABS: Microscopic, Urine URINE MICROSCOPIC (MICROSCOPIC)
--- NOTE | 2023-10-03 08:44 | HMH.ITSTN ---
Waiting for preg test results before we perform Chest Xray
[2023-10-03 08:48] LABS: Appearance,Urine CLEAR (Clear); Blood, Urine TRACE-I (Negative); Color,Urine YELLOW (Yellow); Glucose,Urine (UA) Negative (Negative); Ketones,Urine TRACE (Negative); Leukocyte Esterase,Urine Negative (Negative); Nitrate,Urine Negative (Negative); Protein,Urine Negative (Negative); Specific Gravity, Urine >= 1.030 (1.005-1.030)
[2023-10-03 08:49] LABS: Urine Pregnancy, HCG Qual. Negative (Negative)
[2023-10-03 08:56] LABS: Bilirubin,Urine Negative (Negative)
--- NOTE | 2023-10-03 08:59 | PC.NURSE ---
Patient to xray.
--- NOTE | 2023-10-03 09:10 | PC.NURSE ---
pt back to room from xray
[2023-10-03 09:26] LABS: Bacteria,Urine Trace /lpf; Squamous Epithelial Cell,Urine Occasional #/hpf (0-5); WBC,Urine Occasional #/hpf (0-3)
[2023-10-03 09:30] VITALS: BP 103/63; PULSE 65; O2SAT 96
[2023-10-03] MEDS: KETOROLAC 30MG/ML VIAL 30 MG IM (09:46)
[2023-10-03] MEDS: ACETAMINOPHEN 500MG TAB 1000 MG PO (09:46)
[2023-10-03 09:53] VITALS: BP 107/63; PULSE 88; RESP 20; TEMP 36.8; O2SAT 98
== END 2023-10-03 09:58 | disposition home or self-care (01) ==
PROVIDERS: Emergency Provider Emergency Medicine; PCP Physician Assistant
DX: J40 Bronchitis, not specified as acute or chronic (principal); J06.9 Acute upper respiratory infection, unspecified; R09.1 Pleurisy; B37.31 Acute candidiasis of vulva and vagina; R09.81 Nasal congestion; J02.9 Acute pharyngitis, unspecified; F17.290 Nicotine dependence, other tobacco product, uncomplicated
CPT/HCPCS: 71046; 81001; 81025; 96372; 99284

== ENCOUNTER 2023-10-12 15:11 | Emergency (ER) | payer SELFPAY ==
[2023-10-12 15:12] VITALS: BP 132/86; PULSE 68; RESP 17; TEMP 36.7; O2SAT 100; BMI 35.2
--- NOTE | 2023-10-12 15:30 | PC.NURSE ---
Dr. Dorantes at BS for pt eval
--- NOTE | 2023-10-12 15:34 | PC.NURSE ---
DR DESIR AT BEDSIDE
[2023-10-12 15:45] VITALS: BP 114/68; PULSE 64; O2SAT 98
[2023-10-12 15:55] LABS: Basophils % 0.3 % (0.1-2.0); Chloride 107 mmol/L (98-107); Eosinophils % 0.3 % (0.1-12.0); Hematocrit 39.5 % (37.0-47.0); Hemoglobin 12.8 g/dL (12.2-16.2); Lymphocytes # 1.6 K/mm3 (0.7-4.5); Mean Corpuscular HGB Conc 32.5 g/dL (31.8-35.4); Mean Corpuscular Hemoglobin 30.3 pg (27.0-31.2); Mean Corpuscular Volume 93.3 fl (81-99); Mean Platelet Volume 9.4 fl (7.4-10.4); Monocytes # 0.4 K/mm3 (0.1-1.0); Monocytes % 3.7 % (1.7-9.3); Neutrophils # 9.3 K/mm3 (1.8-7.8); Neutrophils % 81.7 % (37.0-80.0); Platelet Count 261 K/mm3 (142-424); Red Blood Count 4.23 M/mm3 (4.20-5.40); Red Cell Distribution Width 13.5 % (11.5-17.5); White Blood Count 11.4 K/mm3 (4.8-10.8)
[2023-10-12 15:56] LABS: Potassium 3.9 mmoL/L (3.5-5.1); Sodium 142 mmol/L (136-145)
--- NOTE | 2023-10-12 15:56 | HMH.EDGENADL ---
Discharge Plan Disposition Patient Disposition: Home, Self-Care Prescriptions Prescriptions: No Action benzonatate 100 mg capsule 100 mg PO TID PRN (Reason: cough) Qty: 30 0RF Rx Instructions: May take 2 capsules(200mg) at a time if one does not provide relief. amoxicillin 875 mg tablet 875 mg PO Q12H Qty: 20 0RF methylprednisolone 4 mg Tablets,Dose Pack 4 mg PO DIRECTED 6 Days Qty: 21 0RF Rx Instructions: Take 1 pack as directed for 6 days gjipviealrljjji-dmnvzbypo-AS [Bromfed DM] 2-30-10 mg/5 mL Syrup 5 ml PO Q6H PRN (Reason: Cough) Qty: 240 0RF ketorolac 10 mg tablet 10 mg PO Q8H PRN (Reason: pain) 1 Days Qty: 14 0RF fluconazole 150 mg tablet 150 mg PO Q3D 14 Days Qty: 5 0RF Rx Instructions: 150 mg q72 hours for 14 days (5 doses) for recurrent vaginal candidiasis Referrals Follow up/Referrals: Raquel Negro MD [Staff Physician] - See instructions Provider,MD Matthew [Primary Care Provider] - See instructions Activity Restrictions/Add. Instructions Additional Instructions/Restrictions: Call your family doctor to establish care for this visit to the emergency department and schedule follow-up within 48 hours to ensure improvement. If you have any worsening of your condition or any other concerning signs or symptoms, return to the emergency department or your primary care doctor for further evaluation. Neurologist information here, talk to your family doctor about formal referral to Dr. Negro. Clinical Impressions Clinical Impression: Migraine aura, persistent Discharge ED Provider: Jose Dorantes General Adult HPI General Chief complaint: Weakness Stated complaint: Neuro symptoms Time Seen by Provider: 10/12/23 15:21 Mode of Arrival: Ambulatory Source of Information: Patient Limitations: No Limitations Description of Symptoms (Recalled from ER Triage Doc. by RN): patient ambulatory to ED with complaints of headache x3days. Patient states that she has attempted to treat meds with OTC pain medication and toradol without relief. Reports that L orbital area began with a tingling sensation x2hrs ago, with vision changes in her left eye, and increased weakness on left side. Patient took two tylenol sinus x2 [employer]GER. History of Present Illness HPI narrative: This 28 male with history of PVCs/PACs, IBS, anxiety, intermittent complex migraines, currently on semaglutide injections presenting with neurologic deficits and migraine. Patient states that headache started 3 days prior to this visit. Since that time, has been crescendo in nature. Is now severe, does not radiate, associated with photophobia and phonophobia. Associated neurologic deficits are tingling in her left side of her face, tingling and numbness in her left upper extremity and severe pain around her left orbit. Denies overt weakness or lower extremity deficits. States that she very infrequently gets migraines, not on controller medication. Was previously following with neurology, but she lost ronaldo in her care and stopped following up. Patient states that she used to get these migraines when she had Nexplanon implant. This was removed and symptoms have resolved and she has not had any since. This has been years in the past. Not currently taking any control. Denies overt vision changes, facial swelling, Neck pain or stiffness, or any other associated symptoms. Please note that above description of symptoms, in this electronic medical record under categorization of recalled from ER triage doctor by RN are reflective of an initial nursing assessment, however, is not reflective of my full history and physical exam that was personally taken and clarified. Consequentially, this preceding description of symptoms, which may include the patient's categorized chief complaint in the EMR, do not reflect my personal clinical impression, and the ultimate description of history of present illness and patient stated complaints should be deferred to this section of the note. Unless stated otherwise or congruent with this section of the note, additional signs, symptoms, or incongruence should be interpreted as inaccurate with my clinical impression. Related Data Previous Rx's Medication Instructions Recorded benzonatate 100 mg capsule 100 mg PO TID PRN cough #30 caps 09/27/23 amoxicillin 875 mg tablet 875 mg PO Q12H #20 tabs 09/29/23 eaftqvjuraksocg-ssztzvuqnvyplqy-FB 5 ml PO Q6H PRN Cough #240 mL 09/29/23 2 mg-30 mg-10 mg/5 mL oral syrup (Bromfed DM) methylprednisolone 4 mg tablets in 4 mg PO DIRECTED 6 days #21 tabs 09/29/23 a dose pack fluconazole 150 mg tablet 150 mg PO Q3D 14 days #5 tabs 10/03/23 ketorolac 10 mg tablet 10 mg PO Q8H PRN pain 1 day #14 10/03/23 tabs Allergies Allergy/AdvReac Type Severity Reaction Status Date / Time metoclopramide [From Reglan] Allergy Mild Hives Verified 09/27/23 13:41 azithromycin Allergy Verified 09/27/23 13:41 famotidine [From Pepcid] Allergy Verified 09/27/23 13:41 levothyroxine AdvReac Intermediate hot flashes Verified 09/27/23 13:41 PFSH PFSH Disclaimer: The information contained in this section may have been updated after the patient was seen, as this information can be updated by other users. Medical History PAC (premature atrial contraction) PVC (premature ventricular contraction) Irritable bowel syndrome (IBS) Hemorrhoid Allergies Depression Anxiety Urinary tract infection Kidney stone History of gastroesophageal reflux (GERD) Migraine Surgical History H/O umbilical hernia repair [place] teeth removed H/O adenoidectomy History of tonsillectomy Family History Other Family history of hypothyroidism Family history of myocardial infarction Social History Smoking Status: Current every day smoker tobacco type: e-cigarettes second hand exposure: Yes alcohol intake: current substance use type: denies use current occupational status: employed Travel in the last 8 weeks: None household members: family and children housing: house lives independently: Yes marital status: education level: college service: No jail: No current occupational exposures/hazards: No caffeine: Yes special ronaldo needs: No agree to transfusion: No do you feel safe at home: Yes victim of physical abuse: No victim of emotional abuse: No victim of sexual abuse: No would you like helpful sources: No ROS Obtained: Yes All systems reviewed & no additional complaints except as documented Physical Exam General General appearance: alert, in no apparent distress and other (Intermittently holding left eye secondary to pain) Head Head exam: atraumatic and normocephalic Eye Eye exam: Present normal appearance, PERRL and EOMI ENT ENT exam: Present mucous membranes moist Neck Neck exam: Present normal inspection, full ROM and trachea midline Respiratory Respiratory exam: Absent respiratory distress, wheezes, stridor, accessory muscle use or prolonged expiratory phase Cardiovascular Cardiovascular exam: Present normal rhythm Abdominal Exam Abdominal exam: Present soft; Absent distention, tenderness, guarding, rebound or rigidity Extremities Exam Extremities exam: Absent edema Neurological Exam Neurological exam: Present alert, oriented X3, CN II-XII intact and normal gait; Absent motor sensory deficit Skin Skin exam: Present warm and dry; Absent diaphoresis or erythema Medical Decision Making Medical Records Medical records reviewed: Yes I reviewed the patient's medical records. Alli Inquiry Pt receiving controlled substance: No Alli was queried for this patient: No Vital Signs: 10/12/23 15:12 10/12/23 15:45 10/12/23 16:30 Temperature 98.0 F Temperature Source Oral Pulse Rate 64 92 H Pulse Rate [Left] 68 Respiratory Rate 17 Blood Pressure 114/68 113/67 Blood Pressure [Right Arm] 132/86 Blood Pressure Mean 78 Blood Pressure Mean [Right Arm] 101 Blood Pressure Source Blood Pressure Source [Right Arm] Automatic Cuff Blood Pressure Position 02 Sat by Pulse Oximetry 100 98 97 Oxygen Delivery Method Room Air 10/12/23 17:00 10/12/23 17:38 10/12/23 17:40 Temperature 97.9 F 97.8 F Temperature Source Oral Oral Pulse Rate 62 65 64 Pulse Rate [Left] Respiratory Rate 18 15 Blood Pressure 120/79 124/84 124/84 Blood Pressure [Right Arm] Blood Pressure Mean Blood Pressure Mean [Right Arm] Blood Pressure Source Automatic Cuff Blood Pressure Source [Right Arm] Blood Pressure Position Sitting 02 Sat by Pulse Oximetry 96 Oxygen Delivery Method Room Air Room Air Room Air Lab Data Lab Results 10/12/23 15:18: WBC 11.4 H, RBC 4.23, Hgb 12.8, Hct 39.5, MCV 93.3, MCH 30.3, MCHC 32.5, RDW 13.5, Plt Count 261, MPV 9.4, Neut % (Auto) 81.7 H, Lymph % (Auto) 14.0, [place] % (Auto) 3.7, Eos % (Auto) 0.3, Baso % (Auto) 0.3, Neut # (Auto) 9.3 H, Lymph # (Auto) 1.6, [place] # (Auto) 0.4, Eos # (Auto) 0.0, Baso # (Auto) 0.0, Sodium 142, Potassium 3.9, Chloride 107, Carbon Dioxide 31 H, Anion Gap 7.9, BUN 15, Creatinine 1.00, Estimated Creat Clear 135, Estimated GFR 66, Est GFR ( Amer) 80, Glucose 85, Calcium 9.6, Total Bilirubin 0.4, AST 33, ALT 35, Alkaline Phosphatase 50, Total Protein 7.6, Albumin 4.2, Globulin 3.4 H, Albumin/Globulin Ratio 1.2 10/12/23 15:18 10/12/23 15:18 Orders (Tests/Meds): ED MEDICATIONS Discontinued Medications Generic Name Dose Route Start Last Admin Trade Name Freq PRN Reason Stop Dose Admin Acetaminophen 1,000 mg 10/12/23 15:39 10/12/23 16:08 Acetaminophen 1,000mg/100ml Vial IV 10/12/23 15:40 1,000 mg ONCE ONE Administration Dexamethasone Sodium Phosphate 10 mg 10/12/23 15:39 10/12/23 16:07 Dexamethasone 4mg/Ml 1ml Vial IV 10/12/23 15:40 10 mg ONCE ONE Administration Diphenhydramine HCl 25 mg 10/12/23 15:39 10/12/23 16:07 Diphenhydramine 50mg/Ml Vial IV 10/12/23 15:40 25 mg ONCE ONE Administration Diphenhydramine HCl 25 mg 10/12/23 16:24 10/12/23 16:51 Diphenhydramine 50mg/Ml Vial IV 10/12/23 16:25 25 mg ONCE ONE Administration Magnesium Sulfate 2 gm in 50 mls @ 50 mls/hr 10/12/23 15:39 10/12/23 16:08 Magnesium Sulfate 2gm/50ml Premix IV 10/12/23 16:38 50 mls/hr ONCE ONE Administration Sodium Chloride 1,000 mls @ 999 mls/hr 10/12/23 16:01 10/12/23 16:51 Sod Chlor 0.9% 1000ml Bag IV 10/12/23 17:01 999 mls/hr .Q1H1M ONE Administration Ketorolac Tromethamine 15 mg 10/12/23 15:39 10/12/23 16:07 Ketorolac 30mg/Ml Vial IV 10/12/23 15:40 15 mg ONCE ONE Administration Prochlorperazine Edisylate 10 mg 10/12/23 15:39 10/12/23 16:07 Prochlorperazine 10mg/2ml Vial IV 10/12/23 15:40 10 mg ONCE ONE Administration ORDERS Category Date Time Status CBC w/Auto Diff [Complete Blood Count Auto Diff] Stat Lab 10/12/23 15:18 Completed CMP [Comprehensive Metabolic Panel] Stat Lab 10/12/23 15:18 Completed Medical Decision Narrative: This 28 male with history of PVCs/PACs, IBS, anxiety, intermittent complex migraines, currently on semaglutide injections presenting with neurologic deficits and migraine. Patient states that headache started 3 days prior to this visit. Since that time, has been crescendo in nature. Is now severe, does not radiate, associated with photophobia and phonophobia. Associated neurologic deficits are tingling in her left side of her face, tingling and numbness in her left upper extremity and severe pain around her left orbit. Denies overt weakness or lower extremity deficits. States that she very infrequently gets migraines, not on controller medication. Was previously following with neurology, but she lost ronaldo in her care and stopped following up. Patient states that she used to get these migraines when she had Nexplanon implant. This was removed and symptoms have resolved and she has not had any since. This has been years in the past. Not currently taking any control. Denies overt vision changes, facial swelling, Neck pain or stiffness, or any other associated symptoms. History was obtained via conversation with patient. On arrival, patient hemodynamically stable, alert, oriented x4, appropriate, GCS 15, moving all extremities spontaneously, pupils equal and reactive to light. Full physical exam performed and significant for well-appearing woman in no acute distress. She does have decree sensation on her left side of face and left upper extremity. Moving both extremities spontaneously and symmetrically. Differential includes complex migraine, multiple sclerosis, other demyelinating disease, cluster headaches, intracranial mass, intracranial bleed, among others. Patient was given Toradol, Decadron, Compazine, Benadryl, 2 g magnesium IV, 1 L fluids for symptomatic management and correction of underlying abnormalities. Workup independently interpreted and significant for nonactionable CBC or chemistry. Patient was placed in observation beginning at 3:30 PM in order to give meds and rule out further diagnostic tests and determine need for admission versus home-going. The patient was provided headache cocktail while awaiting results. Independent interpretation of results demonstrated findings as above. On reevaluation, patient feeling much better, headache resolved, opting for home-going. At this time, I feel patient is appropriate for discharge. Total observation time 2 hours. Given patient presentation, workup, history, this most likely represents acute complex migraine. Because patient at baseline without signs or symptoms of clinical decompensation, deemed appropriate for discharge. Results were relayed to patient who voiced understanding and were agreeable to outpatient management and follow up. I discussed my clinical impression with patient and answered all questions. At this time, the evidence for any other entities in the differential is insufficient to warrant any further testing or ED observation. This was explained as well. Advisory was given that persistent or worsening symptoms require further evaluation. I confirmed the understanding of this discussion. Critical Care Critical Care Time Critical Care Time: No
[2023-10-12 15:58] LABS: Alanine Aminotransferase 35 U/L (12-78); Aspartate Amino Transferase 33 U/L (14-36); Blood Urea Nitrogen 15 mg/dl (7-17); Creatinine Clearance Estimated 135 mL/min (50-200); Estimated Glomerular Filt Rate 66 ml/min (>60); GFR (African American) 80 ML/MIN (>60)
[2023-10-12 16:00] LABS: Albumin Level 4.2 g/dl (3.5-5.0); Albumin/Globulin Ratio 1.2 (1.1-1.8); Alkaline Phosphatase 50 U/L (38-126); Anion Gap 7.9 mEq/L (5-15); Bilirubin,Total 0.4 mg/dl (0.2-1.3); Calcium 9.6 mg/dl (8.4-10.2); Carbon Dioxide 31 mmol/L (22.0-30.0); Globulin 3.4 g/dL (1.3-3.2); Glucose 85 mg/dl (74-100); Total Protein,Serum 7.6 g/dl (6.3-8.2)
[2023-10-12] MEDS: diphenhydrAMINE 50MG/ML VIAL 25 MG IV ×2 (16:07→16:51)
[2023-10-12] MEDS: DEXAMETHASONE 4MG/ML 1ML VIAL 10 MG IV (16:07)
[2023-10-12] MEDS: PROCHLORPERAZINE 10MG/2ML VIAL 10 MG IV (16:07)
[2023-10-12] MEDS: KETOROLAC 30MG/ML VIAL 15 MG IV (16:07)
[2023-10-12] MEDS: ACETAMINOPHEN 1,000MG/100ML VIAL 1000 MG IV (16:08)
[2023-10-12] MEDS: MAGNESIUM SULFATE IN WATER 2 GM/50 ML PIGGYBACK IV (16:08)
[2023-10-12 16:30] VITALS: BP 113/67; PULSE 92; O2SAT 97
[2023-10-12] MEDS: 0.9 % SODIUM CHLORIDE 1000ML 1,000 ML 999 ML IV (16:51)
[2023-10-12 17:00] VITALS: BP 120/79; PULSE 62; O2SAT 96
[2023-10-12 17:38] VITALS: BP 124/84; PULSE 65; RESP 18; TEMP 36.6; O2SAT 99
[2023-10-12 17:40] VITALS: BP 124/84; PULSE 64; RESP 15; TEMP 36.6; O2SAT 99
--- NOTE | 2023-10-13 15:15 | ECG_ITS ---
APPROVED REPORT Exam: Resting ECG HR:65 bpm ECG Measurements Heart Rate 65 AXES ME 117 P 52 QRSd 89 QRS 74 QT 382 T 74 QTc 393 Conclusion SINUS RHYTHM WITH SHORT ME INTERVAL BORDERLINE ECG UNCONFIRMED REPORT Electronically signed by : HOWARD RYAN, 10/14/2023 02:00:34
== END 2023-10-12 17:47 | disposition home or self-care (01) ==
PROVIDERS: Emergency Provider Emergency Medicine
DX: G43.509 Persistent migraine aura without cerebral infarction, not intractable, without status migrainosus (principal); F17.290 Nicotine dependence, other tobacco product, uncomplicated
CPT/HCPCS: 80053; 85025; 93005; 96365; 96375; 96376; 99285; J0131; J3475

== ENCOUNTER 2023-12-22 11:32 | Emergency (ER) | payer SELFPAY ==
[2023-12-22 11:40] VITALS: BP 125/75; PULSE 69; RESP 20; TEMP 37.2; O2SAT 99; BMI 35.5
--- NOTE | 2023-12-22 11:43 | ED_ITS ---
Discharge Plan Disposition Patient Disposition: Home, Self-Care Condition: Good Prescriptions Prescriptions: New ondansetron 4 mg Tablet,Disintegrating 4 mg PO Q8H PRN (Reason: Nausea) Qty: 12 0RF clindamycin phosphate 1 % solution 1 applic topical BID 7 Days Qty: 60 5RF Rx Instructions: apply twice per day to the affected area. No Action ashroshana root extract 300 mg Tablet 600 mg PO DAILY Referrals Follow up/Referrals: Krystina Feliz PA [Primary Care Provider] - See instructions Activity Restrictions/Add. Instructions Additional Instructions/Restrictions: Drink plenty of fluids. Take tylenol or ibuprofen for pain or fever. Take the medications as directed. Follow up with your regular doctor. GO TO THE ER FOR ANY WORSENING SYMPTOMS Clinical Impressions Clinical Impression: Gastroenteritis, Hidradenitis suppurativa Stand Alone Forms Stand Alone Forms: Work/School Release Instructions Patient Instructions: DI for Viral Gastroenteritis -- Adult, Ondansetron, Clindamycin Topical Discharge ED Provider: Larry Neri [facility] [place], [place] General Stated complaint: vomiting, chills. diarrhea Time Seen by Provider: 12/22/23 11:43 History of Present Illness Provider Complaint: She states that for the past 1 day she has had n/v/d. She denies abdominal pain. She also states that she has a history of supparative hydrenitis and she is almost out of her clindamycin topical medication. Related Data Home Medications Medication Instructions Recorded Confirmed ashroshana root extract 300 mg 600 mg PO DAILY 12/22/23 12/22/23 tablet Previous Rx's Medication Instructions Recorded clindamycin phosphate 1 % topical 1 applic topical BID 7 days #60 mL 12/22/23 solution ondansetron 4 mg disintegrating 4 mg PO Q8H PRN Nausea #12 tabs 12/22/23 tablet Allergies Allergy/AdvReac Type Severity Reaction Status Date / Time metoclopramide [From Reglan] Allergy Mild Hives Verified 09/27/23 13:41 azithromycin Allergy Verified 09/27/23 13:41 famotidine [From Pepcid] Allergy Verified 09/27/23 13:41 prochlorperazine Allergy Verified 12/22/23 11:54 [From Compazine] levothyroxine AdvReac Intermediate hot flashes Verified 09/27/23 13:41 PFSH PFSH Disclaimer: The information contained in this section may have been updated after the patient was seen, as this information can be updated by other users. Medical History PAC (premature atrial contraction) PVC (premature ventricular contraction) Irritable bowel syndrome (IBS) Hemorrhoid Allergies Depression Anxiety Urinary tract infection Kidney stone History of gastroesophageal reflux (GERD) Migraine Surgical History H/O umbilical hernia repair [place] teeth removed H/O adenoidectomy History of tonsillectomy Family History Other Family history of hypothyroidism Family history of myocardial infarction Social History Smoking Status: Current every day smoker tobacco type: e-cigarettes second hand exposure: Yes alcohol intake: current alcohol intake frequency: holidays/special occasions only substance use type: denies use current occupational status: employed Travel in the last 8 weeks: None household members: family and children housing: house lives independently: Yes marital status: education level: college service: No alf: No current occupational exposures/hazards: No caffeine: Yes special ronaldo needs: No agree to transfusion: No do you feel safe at home: Yes victim of physical abuse: No victim of emotional abuse: No victim of sexual abuse: No would you like helpful sources: No ROS Obtained: Yes All systems reviewed & no additional complaints except as do cumented Constitutional Constitutional: Denies chills, Denies fever(s) and Reports poor appetite ENT Ears, Nose, Mouth, and Throat: Denies dizziness and Denies sore throat Cardiovascular Cardiovascular: Denies dyspnea Respiratory Respiratory: Denies chest congestion, Denies cough and Denies dyspnea Gastrointestinal Gastrointestingal: Reports as per HPI, cramping, diarrhea, nausea and vomiting; Denies abdominal pain Genitourinary Female Genitourinary: Denies difficulty voiding, Denies dysuria, Denies h ematuria, Denies urinary frequency, Denies urinary incontinence, Denies urinary hesitancy and Denies urinary urgency Musculoskeletal Musculoskeletal: Denies arthralgias Integumentary/Breasts Skin/Breast: Denies rash Neurologic Neurologic: Denies dizziness Physical Exam General General appearance: alert and in no apparent distress Head Head exam: atraumatic and normocephalic Eye Eye exam: Present normal appearance, PERRL and EOMI ENT ENT exam: Present normal exam, normal oropharynx, mucous membranes moist, TM's normal bilaterally and normal external ear exam Neck Neck exam: Present normal inspection, full ROM and trachea midline; Absent tenderness, meningismus or lymphadenopathy Chest Chest inspection: Present normal inspection and symmetric chest wall rise; Absent tenderness, rash or abscess Respiratory Respiratory exam: Present normal lung sounds bilaterally; Absent respiratory distress, wheezes or stridor Cardiovascular Cardiovascular exam: Present regular rate and normal rhythm; Absent irregular rhythm, systolic murmur, diastolic murmur or JVD Abdominal Exam Abdominal exam: Present soft and hyperactive bowel sounds; Absent distention, tenderness, guarding, rebound, rigidity, psoas sign, obturator sign, heel tap sign, Jj's sign, Rovsing's sign or tenderness at McBurney's Point Extremities Exam Extremities exam: Present normal inspection and full ROM; Absent tenderness Back Exam Back exam: Present normal inspection and full ROM; Absent tenderness, CVA tenderness (R) or CVA tenderness (L) Neurological Exam Neurological exam: Present alert, oriented X3 and CN II-XII intact Psychiatric Psychiatric exam: Present normal affect and normal mood Skin Skin exam: Present warm, dry, intact and normal color Lymphatic Lymphatic Findings: no adenopathy Medical Decision Making Medical Records Medical records reviewed: No I reviewed the patient's medical records. Alli Inquiry Pt receiving controlled substance: No
[2023-12-22 12:42] VITALS: BP 125/75; PULSE 69; RESP 20; TEMP 37.2; O2SAT 99
== END 2023-12-22 12:45 | disposition home or self-care (01) ==
PROVIDERS: Emergency Provider Nurse Practitioner Family; PCP Physician Assistant
DX: K52.9 Noninfective gastroenteritis and colitis, unspecified (principal); R11.2 Nausea with vomiting, unspecified; L73.2 Hidradenitis suppurativa; F17.210 Nicotine dependence, cigarettes, uncomplicated
CPT/HCPCS: 99212; 99214; G0463

== ENCOUNTER 2024-02-08 10:10 | Emergency (ER) | payer SELFPAY ==
[2024-02-08 10:17] VITALS: BP 130/67; PULSE 69; RESP 16; TEMP 36.8; O2SAT 99; BMI 35.5
[2024-02-08 11:01] VITALS: BP 97/60; PULSE 68; O2SAT 99
--- NOTE | 2024-02-08 11:06 | XR_ITS ---
FINAL REPORT CLINICAL HISTORY: knee pain FINDINGS: There is no acute fracture or dislocation. The joint spaces are intact. There is no soft tissue abnormality. IMPRESSION: No acute fracture Reviewed, Interpreted and Dictated by Vince Palencia MD Transcribed by Brandie Carrillo Authenticated and . [facility]
--- NOTE | 2024-02-08 11:06 | XR_ITS ---
FINAL REPORT CLINICAL HISTORY: pain FINDINGS: There is no acute fracture or dislocation. The joint spaces are intact. There is no soft tissue abnormality. IMPRESSION: No acute fracture Reviewed, Interpreted and Dictated by Vince Palencia MD Transcribed by Brandie Carrillo Authenticated and [facility]
--- NOTE | 2024-02-08 11:10 | HMH.EDGENADL ---
Discharge Plan Disposition Patient Disposition: Home, Self-Care Condition: Good Prescriptions Prescriptions: New fluconazole 100 mg tablet 100 mg PO DAILY 14 Days Qty: 14 0RF naproxen 500 mg tablet 500 mg PO BID Qty: 20 0RF No Action boboa root extract 300 mg Tablet 600 mg PO DAILY ondansetron 4 mg Tablet,Disintegrating 4 mg PO Q8H PRN (Reason: Nausea) Qty: 12 0RF clindamycin phosphate 1 % solution 1 applic topical BID 7 Days Qty: 60 5RF Rx Instructions: apply twice per day to the affected area. Referrals Follow up/Referrals: Leticia Guillory DO [Staff Physician] - See instructions Giacomo Webster MD [Staff Physician] - See instructions Krystina Feliz PA [Primary Care Provider] - See instructions Zafar Montgomery DO [Staff Physician] - See instructions Marina Barrera DO [Staff Physician] - See instructions Activity Restrictions/Add. Instructions Additional Instructions/Restrictions: You were evaluated in the emergency department today. 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 You may also take Tylenol every 4-6 hours as needed for pain. 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 Your vaginal swabs are pending. Follow-up these results in your chart. Follow-up closely with gynecology as well as orthopedics for reassessment of your vaginal symptoms as well as your knee. Return to the emergency department for new or worsening symptoms. Clinical Impressions Clinical Impression: Recurrent candidiasis of vagina, Acute pain of right knee Stand Alone Forms Stand Alone Forms: Work/School Release Instructions Patient Instructions: DI for Vaginal Yeast Infection, DI for Knee Pain Print Language Print Language: Mongolian Discharge ED Provider: Sydnie Carter General Adult HPI General Chief complaint: Extremity Problem,Nontraumatic Stated complaint: Pain, weakness in right knee Time Seen by Provider: 02/08/24 10:42 Mode of Arrival: Ambulatory Source of Information: Patient Limitations: No Limitations Description of Symptoms (Recalled from ER Triage Doc. by RN): pt c/o R knee pain ongoing since 02/02. pt reports her pain when resting is constant, aches/dull and an 8/10. During exertion or bending the pain is sharp/shooting and 9/10. pt reports the pain radiates to her silva. History of Present Illness HPI narrative: This patient is a 29-year-old female with a history of recurrent yeast infections, PCOS, and constipation presenting to the emergency department for evaluation with concern for pain and vaginal itching/discharge. Patient reports that since 02/02 after standing all day at work, she has had right knee pain. It is worse when going up stairs and also with bending and twisting of her knee. No redness, warmth, skin color changes, wounds, or other concerns. It radiates to her silva. She also states she is having some tightness in her ankle from walking differently secondary to the knee pain. She also notes that she has dealt with recurrent yeast infections in the past and has had to do 14-day cycles of fluconazole. She has not had to do this in several months, but has been dealing with vaginal discharge and has failed outpatient management with [id number] yeast medications recently. She denies concern for sexually transmitted infection. No fevers, chills, or other concerns. She is still able to bear weight on her right lower extremity. Related Data Home Medications ?Medication ?Instructions ?Recorded ?Confirmed boboa root extract 300 mg 600 mg PO DAILY 12/22/23 12/22/23 tablet Previous Rx's ?Medication ?Instructions ?Recorded clindamycin phosphate 1 % topical 1 applic topical BID 7 days #60 mL 12/22/23 solution ondansetron 4 mg disintegrating 4 mg PO Q8H PRN Nausea #12 tabs 12/22/23 tablet fluconazole 100 mg tablet 100 mg PO DAILY 14 days #14 tabs 02/08/24 naproxen 500 mg tablet 500 mg PO BID #20 tabs 02/08/24 Allergies Allergy/AdvReac Type Severity Reaction Status Date / Time metoclopramide [From Reglan] Allergy Mild Hives Verified 02/08/24 10:27 azithromycin Allergy Verified 02/08/24 10:27 famotidine [From Pepcid] Allergy Verified 02/08/24 10:27 prochlorperazine Allergy Verified 02/08/24 10:27 [From Compazine] levothyroxine AdvReac Intermediate hot flashes Verified 02/08/24 10:27 [facility] Disclaimer: The information contained in this section may have been updated after the patient was seen, as this information can be updated by other users. Medical History PAC (premature atrial contraction) PVC (premature ventricular contraction) Irritable bowel syndrome (IBS) Hemorrhoid Allergies Depression Anxiety Urinary tract infection Kidney stone History of gastroesophageal reflux (GERD) Migraine Surgical History H/O umbilical hernia repair [place] teeth removed H/O adenoidectomy History of tonsillectomy Family History Other Family history of hypothyroidism Family history of myocardial infarction Social History Smoking Status: Current every day smoker tobacco type: e-cigarettes second hand exposure: Yes alcohol intake: current alcohol intake frequency: holidays/special occasions only substance use type: denies use current occupational status: employed Travel in the last 8 weeks: None household members: family and children housing: house lives independently: Yes marital status: education level: college service: No prison: No current occupational exposures/hazards: No caffeine: Yes special ronaldo needs: No agree to transfusion: No do you feel safe at home: Yes victim of physical abuse: No victim of emotional abuse: No victim of sexual abuse: No would you like helpful sources: No ROS Obtained: Yes All systems reviewed & no additional complaints except as documented Physical Exam General General appearance: alert and in no apparent distress Head Head exam: atraumatic and normocephalic Eye Eye exam: Present normal appearance, PERRL and EOMI ENT ENT exam: Present normal exam, normal oropharynx, mucous membranes moist and normal external ear exam Neck Neck exam: Present normal inspection, full ROM and trachea midline; Absent tenderness Chest Chest inspection: Present normal inspection and symmetric chest wall rise; Absent tenderness Respiratory Respiratory exam: Present normal lung sounds bilaterally; Absent respiratory distress, wheezes, stridor or accessory muscle use Cardiovascular Cardiovascular exam: Present regular rate and normal rhythm Abdominal Exam Abdominal exam: Present soft; Absent distention, tenderness or guarding Extremities Exam Extremities exam: Present tenderness (Tenderness to palpation of the medial joint line of the right knee and patellar tendon), normal capillary refill and other (No redness, warmth, or swelling of the right knee with no significant joint effusion. No overlying wounds or skin discoloration. No ligamentous instability. All compartments soft. Neurovascularly intact distally.); Absent full ROM (Intact active and passive range of motion of the right knee with only limitations in end range secondary to pain.) or edema Back Exam Back exam: Present normal inspection and full ROM; Absent tenderness Neurological Exam Neurological exam: Present alert, oriented X3, CN II-XII intact and normal gait; Absent motor sensory deficit Psychiatric Psychiatric exam: Present normal affect and normal mood Skin Skin exam: Present warm and dry Medical Decision Making Medical Records Medical records reviewed: Yes I reviewed the patient's medical records. Alli Inquiry Pt receiving controlled substance: No Vital Signs: 02/08/24 10:17 02/08/24 11:01 02/08/24 12:10 Temperature 98.3 F Temperature Source Oral Pulse Rate 68 97 H Pulse Rate [Left] 69 Respiratory Rate 16 Blood Pressure 97/60 L 122/77 Blood Pressure [Right Arm] 130/67 Blood Pressure Mean [Right Arm] 88 Blood Pressure Source [Right Arm] Automatic Cuff Blood Pressure Position [Right Arm] Supine 02 Sat by Pulse Oximetry 99 99 99 Oxygen Delivery Method Room Air 02/08/24 13:33 Temperature 98.3 F Temperature Source Pulse Rate 59 L Pulse Rate [Left] Respiratory Rate 16 Blood Pressure 106/70 L Blood Pressure [Right Arm] Blood Pressure Mean [Right Arm] Blood Pressure Source [Right Arm] Blood Pressure Position [Right Arm] 02 Sat by Pulse Oximetry Oxygen Delivery Method Lab Data Lab results reviewed: Yes I reviewed the patient's lab results. Lab Results 02/08/24 11:17: Urine HCG, Qual Negative 02/08/24 11:22: Urine Color Yellow, Urine Appearance Clear, Urine pH 6.5, Ur Specific [place] 1.025, Urine Protein Negative, Urine Glucose (UA) Negative, Urine Ketones Negative, Urine Blood Trace-i, Urine Nitrate Negative, Urine Bilirubin Negative, Urine Urobilinogen 0.2, Ur Leukocyte Esterase 1+ A, Urine RBC Occasional, Urine WBC Occasional, Ur Squamous Epith Cells 3-5, Urine Bacteria 1+ Orders (Tests/Meds): ORDERS Category Date Time Status Knee XR right 3 views [XR knee RT 3V] Stat Exams 02/08/24 11:06 Completed Tibia/fibula XR right 2 views [XR tibia fibula RT 2V] Exams 07/24/24 11:06 Completed Stat UA [Urinalysis and Microscopic] Stat Lab 02/08/24 11:22 Completed Urine , HCG Qual. Stat Lab 02/08/24 11:17 Completed Urine Culture Stat Micro 02/08/24 11:22 Received Medical Decision Narrative: In summary, this patient is a 29-year-old female presenting to the Emergency Department for evaluation of knee pain as well as vaginal discharge and irritation. Differential diagnoses considered include but are not limited to STI, candidal vaginitis, BV, trichomonas, right knee contusion, fracture, strain/sprain, ligamentous, cartilaginous injury. Ruling out the most morbid conditions drove assessment. On exam, the patient is very well-appearing. Her knee has tenderness over the medial joint line but she has intact range of motion with only limitations in the very end range. She has no redness, warmth, or significant joint effusion. Based on reassuring exam, I do not feel that septic joint is likely. She is neurovascularly intact distally. I feel she likely has tendinitis versus other soft tissue injury. Pelvic exam was performed and swabs were sent for BV/trichomoniasis/yeast. Urine was also obtained. Workup included x-rays of the right knee. I independently interpreted x-ray prior to the radiologist read and noted no acute fracture. Please see their read for final interpretation. Pelvic exam demonstrated mild vaginal erythema and irritation with no significant discharge. Swabs were sent and are pending as well as urine gonorrhea chlamydia testing. Patient did have urine that is slightly concerning for UTI with leukocyte esterase and blood, however she does not want to be treated with antibiotics at this time given her recurrent yeast infections. She states that she will follow-up cultures, as she has access on her chart stevan. Given this, at the patient's request, I did not start her on antibiotics with possible UTI. Based on her request and history, I did prescribe her fluconazole to treat potential vaginal candidiasis, though she is aware that swabs are pending for definitive diagnosis. Ultimately, patient is well-appearing and abdominal exam and knee exams are benign. She is ambulatory. Given this, feel that she is appropriate for discharge home. Patient was given instructions for close follow-up with gynecology as well as instructions for follow-up with orthopedic should she continue to have knee pain. She was given instructions for supportive management and strict return precautions. Critical Care Critical Care Time Critical Care Time: No
[2024-02-08 11:28] LABS: Microscopic, Urine URINE MICROSCOPIC (MICROSCOPIC)
[2024-02-08 11:42] LABS: Appearance,Urine CLEAR (Clear); Bilirubin,Urine Negative (Negative); Blood, Urine TRACE-I (Negative); Color,Urine YELLOW (Yellow); Glucose,Urine (UA) Negative (Negative); Ketones,Urine Negative (Negative); Leukocyte Esterase,Urine 1+ (Negative); Nitrate,Urine Negative (Negative); PH,Urine 6.5 (5.0-8.5); Protein,Urine Negative (Negative); Specific Gravity, Urine 1.025 (1.005-1.030); Urobilinogen,Urine 0.2 EU/dl (0.2)
[2024-02-08 12:05] LABS: WBC,Urine Occasional #/hpf (0-3)
[2024-02-08 12:06] LABS: Bacteria,Urine 1+ /lpf; RBC,Urine Occasional #/hpf (0-3)
[2024-02-08 12:10] VITALS: BP 122/77; PULSE 97; O2SAT 99
[2024-02-08 12:57] LABS: Urine Pregnancy, HCG Qual. Negative (Negative)
--- NOTE | 2024-02-08 13:03 | PC.NURSE ---
PT TO XR
[2024-02-08 13:33] VITALS: BP 106/70; PULSE 59; RESP 16; TEMP 36.8
[2024-02-12 08:09] LABS: Neisseria gonorrhoeae, NAA Negative (Negative)
--- NOTE | 2024-02-12 16:09 | PC.NURSE ---
VAGINAL SWAB RESULTS DISCUSSED WITH DR CRUZ, PT GIVEN RX FOR FLAGYL. NOTIFIED BY PHONE
== END 2024-02-08 13:34 | disposition home or self-care (01) ==
PROVIDERS: Emergency Provider Emergency Medicine; PCP Physician Assistant
DX: B37.31 Acute candidiasis of vulva and vagina (principal); A56.2 Chlamydial infection of genitourinary tract, unspecified; M25.561 Pain in right knee
CPT/HCPCS: 73562; 73590; 81001; 81025; 87086; 87210; 87220; 87491; 87591; 99284

== ENCOUNTER 2024-04-04 14:18 | Emergency (ER) | payer SELFPAY ==
[2024-04-04 14:49] VITALS: BP 107/59; PULSE 74; RESP 20; TEMP 37.3; O2SAT 98; BMI 37.5
--- NOTE | 2024-04-04 14:52 | ED_ITS ---
Discharge Plan Disposition Patient Disposition: Home, Self-Care Condition: Good Referrals Follow up/Referrals: Krystina Feliz PA [Primary Care Provider] - See instructions Activity Restrictions/Add. Instructions Additional Instructions/Restrictions: *Monitor Temp, Over the counter Motrin or Tylenol as directed/as needed Tylenol every 4 hours and Motrin every 6 hours (as long as your family doctor has told you that you can take it) for fever or pain. and straight to ER if unable to lower temp less than 101.0 after medication given *Warm salt water gargles may help to soothe the throat *Throat Lozenges? *Warm fluids like tea with honey may help to soothe the throat? *Sleep elevated *Humidifier/Vaporizer Follow up IMMEDIATELY for new or worsening symptoms or no Noticeable improvement over the next 48-72 hours. 911 for difficulty breathing or swallowing You were tested for today for COVID19 your test result should be back in the next 24 hours, you may check your results on the [facility] Portal Clinical Impressions Clinical Impression: Viral syndrome Stand Alone Forms Stand Alone Forms: Work/School Release Instructions Patient Instructions: DI for Viral Syndrome, DI for Fever (Symptom) -- Adult Print Language Print Language: Senegalese Discharge ED Provider: Aylin Mortensen [facility] HPI General Stated complaint: dizziness, fever, sore throat Mode of Arrival: Ambulatory Source of Information: Patient Time Seen by Provider: 04/04/24 14:52 Description of Symptoms (Recalled from Triage Doc. by RN): FEVER, LIGHTHEADED, HEADACHE, FATIGUE HEENT Symptoms (Recalled from RN notes): Yes Resp Symptoms (Recalled from RN notes): No Skin Symptoms (Recalled from RN notes): No MS Symptoms (Recalled from RN notes): No Functional Status (Recalled from RN notes): WNL History of Present Illness Provider Complaint: Patient states that she did have recent travel out of town for a wedding and yesterday she felt fine and last night she started with fever, chills, body aches, dizziness on and off and over all not feeling well States today she was still not feeling well and not sure if she may have a virus going around or COVID so she came in to get checked Related Data Allergies Allergy/AdvReac Type Severity Reaction Status Date / Time metoclopramide [From Reglan] Allergy Mild Hives Verified 02/08/24 10:27 azithromycin Allergy Verified 02/08/24 10:27 famotidine [From Pepcid] Allergy Verified 02/08/24 10:27 prochlorperazine Allergy Verified 02/08/24 10:27 [From Compazine] levothyroxine AdvReac Intermediate hot flashes Verified 02/08/24 10:27 Worker's Comp Is this a Worker's Comp case?: No PFSH [facility] Disclaimer: The information contained in this section may have been updated after the patient was seen, as this information can be updated by other users. Medical History PAC (premature atrial contraction) PVC (premature ventricular contraction) Irritable bowel syndrome (IBS) Hemorrhoid Allergies Depression Anxiety Urinary tract infection Kidney stone History of gastroesophageal reflux (GERD) Migraine Surgical History H/O umbilical hernia repair [place] teeth removed H/O adenoidectomy History of tonsillectomy Family History Other Family history of hypothyroidism Family history of myocardial infarction Social History Smoking Status: Current every day smoker tobacco type: e-cigarettes second hand exposure: Yes alcohol intake: current alcohol intake frequency: holidays/special occasions only substance use type: denies use current occupational status: employed Travel in the last 8 weeks: None household members: family and children housing: house lives independently: Yes marital status: education level: college service: No assisted: No current occupational exposures/hazards: No caffeine: Yes special ronaldo needs: No agree to transfusion: No do you feel safe at home: Yes victim of physical abuse: No victim of emotional abuse: No victim of sexual abuse: No would you like helpful sources: No ROS Obtained: Yes All systems reviewed & no additional complaints except as documented and Yes Systems reviewed as appropriate & no additional complaints except as documented Constitutional Constitutional: Reports system reviewed and no additional complaints, except as documented, Reports as per HPI, Reports body ache, Reports chills, Reports fa tigue, Reports fever(s) and Reports headache(s) ENT Ears, Nose, Mouth, and Throat: Reports system reviewed and no additional complaints, except as documented, Reports as per HPI, Reports dizziness, Reports headache(s) and Reports nasal congestion Cardiovascular Cardiovascular: Reports system reviewed and no additional complaints, except as documented and Reports as per HPI Respiratory Respiratory: Reports system reviewed and no additional complaints, except as documented and Reports as per HPI Gastrointestinal Gastrointestingal: Reports system reviewed and no additional complaints, except as documented and as per HPI Neurologic Neurologic: Reports dizziness and Reports headache(s) Endocrine Endocrine: Reports fatigue Physical Exam General General appearance: alert and in no apparent distress Eye Eye exam: Present normal appearance, PERRL and EOMI ENT ENT exam: Present mucous membranes moist Expanded ENT Exam Nose exam: Absent sinus tenderness Throat exam: Present normal inspection Chest Chest inspection: Present normal inspection and symmetric chest wall rise Respiratory Respiratory exam: Present normal lung sounds bilaterally; Absent respiratory distress or wheezes Cardiovascular Cardiovascular exam: Present regular rate, normal rhythm and normal heart sounds Neurological Exam Neurological exam: Present alert, oriented X3 and normal gait Medical Decision Making Medical Records Screening: Per USPSTF and CDC recommendations, given the prevalence of disease in our region, it is our hospital?s policy to screen for HIV and viral Hepatitis for all patients aged 18 and over and those with ongoing risk factors. Alli Inquiry Pt receiving controlled substance: No Alli was queried for this patient: No Vital Signs: 04/04/24 14:49 Temperature 99.2 F Temperature Source Oral Pulse Rate [Left Brachial] 74 Respiratory Rate 20 Blood Pressure [Left Arm] 107/59 L Blood Pressure Mean [Left Arm] 75 02 Sat by Pulse Oximetry 98 Orders (Tests/Meds): ORDERS Category Date Time Status Covid-19 Nasal PCR ([facility]) Routine Lab 04/04/24 14:48 Ordered
[2024-04-04 15:31] VITALS: BP 107/59; PULSE 74; RESP 20; TEMP 37.3
== END 2024-04-04 15:32 | disposition home or self-care (01) ==
PROVIDERS: Emergency Provider Nurse Practitioner; PCP Physician Assistant
DX: R50.9 Fever, unspecified (principal); R42 Dizziness and giddiness; R07.0 Pain in throat; B34.9 Viral infection, unspecified
CPT/HCPCS: 87635; 99212; 99213; G0463

== ENCOUNTER 2024-04-09 20:02 | Emergency (ER) | payer SELFPAY ==
[2024-04-09 20:04] VITALS: BP 119/69; PULSE 72; RESP 16; TEMP 36.8; O2SAT 98; BMI 37.4
[2024-04-09 20:42] LABS: Microscopic, Urine URINE MICROSCOPIC (MICROSCOPIC)
[2024-04-09 20:50] LABS: Appearance,Urine CLEAR (Clear); Bilirubin,Urine Negative (Negative); Blood, Urine 3+ (Negative); Color,Urine YELLOW (Yellow); Glucose,Urine (UA) Negative (Negative); Ketones,Urine Negative (Negative); Leukocyte Esterase,Urine Negative (Negative); Nitrate,Urine Negative (Negative); Protein,Urine Negative (Negative); Specific Gravity, Urine >= 1.030 (1.005-1.030); Urobilinogen,Urine 0.2 EU/dl (0.2)
[2024-04-09 20:53] LABS: Urine Pregnancy, HCG Qual. Negative (Negative)
--- NOTE | 2024-04-09 20:56 | ED_ITS ---
Discharge Plan Disposition Patient Disposition: Home, Self-Care Condition: Good Prescriptions Prescriptions: New naproxen 500 mg tablet 500 mg PO BID Qty: 20 0RF Referrals Follow up/Referrals: Leticia Guillory DO [Staff Physician] - See instructions Krystina Feliz PA [Primary Care Provider] - See instructions Activity Restrictions/Add. Instructions Additional Instructions/Restrictions: You were evaluated in the emergency department today. Please follow-up closely with gynecology as well as your primary care provider. Return to the emergency department for new or worsening symptoms. 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 Clinical Impressions Clinical Impression: Abnormal uterine bleeding Stand Alone Forms Stand Alone Forms: Work/School Release Instructions Patient Instructions: DI for Vaginal Bleeding Print Language Print Language: Croatian Discharge ED Provider: Sydnie Carter General Adult HPI General Chief complaint: Vaginal Bleeding Stated complaint: vaginal bleeding Time Seen by Provider: 04/09/24 20:47 Mode of Arrival: Ambulatory Source of Information: Patient Limitations: No Limitations Description of Symptoms (Recalled from ER Triage Doc. by RN): Patient ambulatory to ED with complaints of vaginal bleeding. She reports that she is on her period, but this cycle she is heavily bleeding, saturating a super tampon every hour x8 hours. Complaints of intense lower abdominal cramping, dizzy, ringing in ears, headache and body aches. Reports that she had a faint positive test last month. LMP 04/08/2024 hx of miscarriage History of Present Illness HPI narrative: This patient is a 29-year-old female with a history of PCOS presenting to the emergency department for evaluation with concern for vaginal bleeding. Patient reports that she has a history of 1 resulting in child and 1 prior miscarriage, and that she had a faint test that was positive last month. 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 Yesterday, she started bleeding. Today she is passing large amounts of clots and having bleeding that is heavier than regular periods. She states that she has been going through 1 super tampon an hour, and she also has been saturating her clothes in a very short period of time. She states the clots are larger than anything she has had in the past. She also is having some pelvic pain and cramping. Today, she started feeling dizzy, having ringing in her ears, headache, and bodyaches. Related Data Previous Rx's ?Medication ?Instructions ?Recorded naproxen 500 mg tablet 500 mg PO BID #20 tabs 04/09/24 Allergies Allergy/AdvReac Type Severity Reaction Status Date / Time metoclopramide [From Reglan] Allergy Mild Hives Verified 02/08/24 10:27 azithromycin Allergy Verified 02/08/24 10:27 famotidine [From Pepcid] Allergy Verified 02/08/24 10:27 prochlorperazine Allergy Verified 02/08/24 10:27 [From Compazine] levothyroxine AdvReac Intermediate hot flashes Verified 02/08/24 10:27 PFS PFS Disclaimer: The information contained in this section may have been updated after the patient was seen, as this information can be updated by other users. Medical History PAC (premature atrial contraction) PVC (premature ventricular contraction) Irritable bowel syndrome (IBS) Hemorrhoid Allergies Depression Anxiety Urinary tract infection Kidney stone History of gastroesophageal reflux (GERD) Migraine Surgical History H/O umbilical hernia repair [place] teeth removed H/O adenoidectomy History of tonsillectomy Family History Other Family history of hypothyroidism Family history of myocardial infarction Social History Smoking Status: Current every day smoker tobacco type: e-cigarettes second hand exposure: Yes alcohol intake: current alcohol intake frequency: holidays/special occasions only substance use type: denies use current occupational status: employed Travel in the last 8 weeks: None household members: family and children housing: house lives independently: Yes marital status: education level: college service: No residential: No current occupational exposures/hazards: No caffeine: Yes special ronaldo needs: No agree to transfusion: No do you feel safe at home: Yes victim of physical abuse: No victim of emotional abuse: No victim of sexual abuse: No would you like helpful sources: No ROS Obtained: Yes All systems reviewed & no additional complaints except as documented Physical Exam General General appearance: alert and in no apparent distress Head Head exam: atraumatic and normocephalic Eye Eye exam: Present normal appearance, PERRL and EOMI ENT ENT exam: Present normal exam, normal oropharynx, mucous membranes moist and normal external ear exam Neck Neck exam: Present normal inspection, full ROM and trachea midline; Absent tenderness Chest Chest inspection: Present normal inspection and symmetric chest wall rise; Absent tenderness Respiratory Respiratory exam: Present normal lung sounds bilaterally; Absent respiratory distress, wheezes, stridor or accessory muscle use Cardiovascular Cardiovascular exam: Present regular rate and normal rhythm Abdominal Exam Abdominal exam: Present soft and tenderness (Lower abdomen); Absent distention, guarding, rebound or rigidity Extremities Exam Extremities exam: Present normal inspection, full ROM and normal capillary refill; Absent tenderness or edema Back Exam Back exam: Present normal inspection and full ROM; Absent tenderness Neurological Exam Neurological exam: Present alert, oriented X3, CN II-XII intact and normal gait; Absent motor sensory deficit Psychiatric Psychiatric exam: Present normal affect and normal mood Skin Skin exam: Present warm and dry Medical Decision Making Medical Records Medical records reviewed: Yes I reviewed the patient's medical records. Screening: Per USPSTF and CDC recommendations, given the prevalence of disease in our region, it is our hospital?s policy to screen for HIV and viral Hepatitis for all patients aged 18 and over and those with ongoing risk factors. Alli Inquiry Pt receiving controlled substance: No Vital Signs: 04/09/24 20:04 04/09/24 22:58 Temperature 98.3 F 97.7 F Temperature Source Oral Oral Pulse Rate 90 Pulse Rate [Right] 72 Respiratory Rate 16 18 Blood Pressure 123/73 Blood Pressure [Right Arm] 119/69 Blood Pressure Mean [Right Arm] 85 Blood Pressure Source Automatic Cuff Blood Pressure Source [Right Arm] Automatic Cuff Blood Pressure Position [Right Arm] Sitting 02 Sat by Pulse Oximetry 98 Oxygen Delivery Method Nasal Cannula Room Air Lab Data Lab results reviewed: Yes I reviewed the patient's lab results. Lab Results 04/09/24 20:40: Urine Color Yellow, Urine Appearance Clear, Urine pH 6.0, Ur Specific [place] >= 1.030, Urine Protein Negative, Urine Glucose (UA) Negative, Urine Ketones Negative, Urine Blood 3+ A, Urine Nitrate Negative, Urine Bilirubin Negative, Urine Urobilinogen 0.2, Ur Leukocyte Esterase Negative, Urine RBC 20-50, Urine WBC None, Ur Squamous Epith Cells 3-5, Urine Bacteria Trace, Urine Mucus Trace, Urine HCG, Qual Negative 04/09/24 21:00: WBC 6.9, RBC 4.01 L, Hgb 12.5, Hct 38.0, MCV 94.8, MCH 31.2, MCHC 32.9, RDW 13.3, Plt Count 220, MPV 9.7, Neut % (Auto) 66.2, Lymph % (Auto) 27.7, Sunflower % (Auto) 5.2, Eos % (Auto) 0.5, Baso % (Auto) 0.4, Neut # (Auto) 4.6, Lymph # (Auto) 1.9, Sunflower # (Auto) 0.4, Eos # (Auto) 0.0, Baso # (Auto) 0.0, PT 10.7, INR 0.95, APTT 26.9, Sodium 140, Potassium 3.4 L, Chloride 108 H, Carbon Dioxide 27, Anion Gap 8.4, BUN 20 H, Creatinine 0.80, Estimated Creat Clear 172, Estimated GFR 85, Est GFR ( Amer) 103, Glucose 80, Calcium 10.3 H, Total Bilirubin 0.4, AST 21, ALT 20, Alkaline Phosphatase 42, Total Protein 8.0, Albumin 4.7, Globulin 3.3 H, Albumin/Globulin Ratio 1.4, HCG, Quant < 2, HIV 1&2 Antibody Rapid Nonreactive, Blood Type B Positive, Antibody Screen Negative 04/09/24 21:00 04/09/24 21:00 Orders (Tests/Meds): ED MEDICATIONS Discontinued Medications Generic Name Dose Route Start Last Admin Trade Name Freq PRN Reason Stop Dose Admin Lactated Ringer's 1,000 mls @ 999 mls/hr 04/09/24 21:00 04/09/24 21:07 Lactated Ringer's 1000 Ml Bag IV 04/09/24 22:00 999 mls/hr .Q1H1M ONE Administration Ketorolac Tromethamine 15 mg 04/09/24 22:03 04/09/24 22:12 Ketorolac 30mg/Ml Vial IV 04/09/24 22:04 15 mg ONCE ONE Administration Potassium Chloride 40 meq 04/09/24 21:28 04/09/24 21:42 Potassium Chloride 20meq Tab PO 04/09/24 21:29 40 meq ONCE ONE Administration ORDERS Category Date Time Status Type and Screen Stat BBK 04/09/24 21:00 Completed Beta HCG, Quant [HCG,Quantitative] Stat Lab 04/09/24 21:00 Completed CMP [Comprehensive Metabolic Panel] Stat Lab 04/09/24 21:00 Completed Complete Blood Count Auto Diff Stat Lab 04/09/24 21:00 Completed HIV (1&2) Antibody Rapid Stat Lab 04/09/24 21:00 Completed Hep C Ab with Reflex to RNA Stat Lab 04/09/24 21:00 Received PT INR [Prothrombin Time INR] Stat Lab 04/09/24 21:00 Completed PTT [Activated Partial Thrombo Time] Stat Lab 04/09/24 21:00 Completed UA [Urinalysis and Microscopic] Stat Lab 04/09/24 20:40 Completed Urine , HCG Qual. Stat Lab 04/09/24 20:40 Completed Medical Decision Narrative: In summary, this patient is a 29-year-old female presenting to the Emergency Department for evaluation of lower abdominal pain and heavy vaginal bleeding. She notes a faint positive test last month. Differential diagnoses considered include but are not limited to spontaneous , missed , anemia, hemorrhagic shock, uterine fibroid, dysfunctional uterine bleeding. Ruling out the most morbid conditions drove assessment. It should be noted patient's history includes PCOS which is not at goal therapy. This complicates all aspects of care by increasing patient's risk for morbidity. On exam, the patient is lying in bed in no acute distress. Vitals are normal on cardiac telemetry. She has some lower abdominal tenderness but otherwise abdominal exam is benign. Workup included CBC, CMP, hCG, coags, type and screen, urinalysis. Patient was given a bolus of IV fluids. On reassessment, the patient is resting comfortably. Vitals are reassuring on cardiac telemetry. Abdominal exam is benign. Pelvic exam demonstrates small amount of blood in the vaginal vault with no active pooling, no very large clots. No obvious lacerations or tears. Labs are reassuring. test negative, hemoglobin normal at the patient's baseline. Ultimately, I feel that she is appropriate for discharge home at this time with close follow-up with gynecology. It is possible she has uterine fibroid or some other issue, however I do not feel that emergent ultrasound evaluation or gynecologic evaluation is indicated at this time. Patient was discharged with strict return precautions, prescription for naproxen, and instructions for close follow-up. Critical Care Critical Care Time Critical Care Time: No
[2024-04-09] MEDS: LACTATED RINGERS 1000ML 1,000 ML 999 ML IV (21:07)
[2024-04-09 21:09] LABS: Bacteria,Urine Trace /lpf; Mucus,Urine Trace /lpf; RBC,Urine 20-50 #/hpf (0-3)
[2024-04-09 21:19] LABS: Basophils % 0.4 % (0.1-2.0); Eosinophils % 0.5 % (0.1-12.0); Hemoglobin 12.5 g/dL (12.2-16.2); Lymphocytes # 1.9 K/mm3 (0.7-4.5); Lymphocytes % 27.7 % (10-50); Mean Corpuscular HGB Conc 32.9 g/dL (31.8-35.4); Mean Corpuscular Hemoglobin 31.2 pg (27.0-31.2); Mean Corpuscular Volume 94.8 fl (81-99); Mean Platelet Volume 9.7 fl (7.4-10.4); Monocytes # 0.4 K/mm3 (0.1-1.0); Monocytes % 5.2 % (1.7-9.3); Neutrophils # 4.6 K/mm3 (1.8-7.8); Neutrophils % 66.2 % (37.0-80.0); Platelet Count 220 K/mm3 (142-424); Red Blood Count 4.01 M/mm3 (4.20-5.40); Red Cell Distribution Width 13.3 % (11.5-17.5); White Blood Count 6.9 K/mm3 (4.8-10.8)
[2024-04-09 21:24] LABS: Albumin Level 4.7 g/dl (3.5-5.0); Chloride 108 mmol/L (98-107); Potassium 3.4 mmoL/L (3.5-5.1); Sodium 140 mmol/L (136-145)
[2024-04-09 21:27] LABS: Alanine Aminotransferase 20 U/L (12-78); Albumin/Globulin Ratio 1.4 (1.1-1.8); Alkaline Phosphatase 42 U/L (38-126); Anion Gap 8.4 mEq/L (5-15); Aspartate Amino Transferase 21 U/L (14-36); Bilirubin,Total 0.4 mg/dl (0.2-1.3); Blood Urea Nitrogen 20 mg/dl (7-17); Calcium 10.3 mg/dl (8.4-10.2); Carbon Dioxide 27 mmol/L (22.0-30.0); Creatinine Clearance Estimated 172 mL/min (50-200); Estimated Glomerular Filt Rate 85 ml/min (>60); GFR (African American) 103 ML/MIN (>60); Globulin 3.3 g/dL (1.3-3.2); Glucose 80 mg/dl (74-100)
[2024-04-09 21:28] LABS: Activated Partial Thrombo Time 26.9 seconds (22.8-30.6); INR 0.95 (0.9-1.1); Prothrombin Time 10.7 seconds (10.1-12.5)
[2024-04-09] MEDS: POTASSIUM CHLORIDE 20MEQ TAB 40 MEQ PO (21:42)
[2024-04-09 21:59] LABS: HCG,Quantitative < 2 mIU/ml (0-5.42)
[2024-04-09 22:07] LABS: HIV (1&2) Antibody Rapid NONREACTIVE (NONREACTIVE)
[2024-04-09] MEDS: KETOROLAC 30MG/ML VIAL 15 MG IV (22:12)
[2024-04-09 22:58] VITALS: BP 123/73; PULSE 90; RESP 18; TEMP 36.5; O2SAT 100
[2024-04-11 07:13] LABS: HCV Ab Non Reactive (Non Reactive)
== END 2024-04-09 23:05 | disposition home or self-care (01) ==
PROVIDERS: Emergency Provider Emergency Medicine; PCP Physician Assistant
DX: N93.9 Abnormal uterine and vaginal bleeding, unspecified (principal); R10.2 Pelvic and perineal pain; R25.2 Cramp and spasm; R42 Dizziness and giddiness; R51.9 Headache, unspecified
CPT/HCPCS: 80053; 81001; 81025; 84702; 85025; 85610; 85730; 86803; 86850; 87389; 96361; 96374; 99284; J1885; J7120

== ENCOUNTER 2024-04-19 10:49 | Outpatient (CLI) | payer OTHER, SELFPAY ==
[2024-04-19 11:08] LABS: Basophils % 0.3 % (0.1-2.0); Eosinophils % 0.4 % (0.1-12.0); Hematocrit 37.8 % (37.0-47.0); Hemoglobin 12.3 g/dL (12.2-16.2); Lymphocytes # 1.9 K/mm3 (0.7-4.5); Lymphocytes % 32.3 % (10-50); Mean Corpuscular HGB Conc 32.4 g/dL (31.8-35.4); Mean Corpuscular Hemoglobin 30.7 pg (27.0-31.2); Mean Corpuscular Volume 94.7 fl (81-99); Mean Platelet Volume 9.5 fl (7.4-10.4); Monocytes # 0.3 K/mm3 (0.1-1.0); Monocytes % 4.8 % (1.7-9.3); Neutrophils # 3.6 K/mm3 (1.8-7.8); Neutrophils % 62.2 % (37.0-80.0); Platelet Count 259 K/mm3 (142-424); Red Cell Distribution Width 12.9 % (11.5-17.5); White Blood Count 5.7 K/mm3 (4.8-10.8)
[2024-04-19 11:12] LABS: Alanine Aminotransferase 27 U/L (12-78); Albumin Level 4.9 g/dl (3.5-5.0); Albumin/Globulin Ratio 1.4 (1.1-1.8); Alkaline Phosphatase 51 U/L (38-126); Anion Gap 12.1 mEq/L (5-15); Aspartate Amino Transferase 27 U/L (14-36); Bilirubin,Total 0.6 mg/dl (0.2-1.3); Blood Urea Nitrogen 21 mg/dl (7-17); Calcium 10.1 mg/dl (8.4-10.2); Carbon Dioxide 24 mmol/L (22.0-30.0); Chloride 105 mmol/L (98-107); Chol/HDL Ratio 2.9 (1-3.5); Cholesterol 170 mg/dl (140-200); Estimated Glomerular Filt Rate 85 ml/min (>60); GFR (African American) 103 ML/MIN (>60); Globulin 3.4 g/dL (1.3-3.2); Glucose 79 mg/dl (74-100); HDL Cholesterol 59 mg/dl (40-60); Potassium 4.1 mmoL/L (3.5-5.1); Sodium 137 mmol/L (136-145); Total Protein,Serum 8.3 g/dl (6.3-8.2); Triglycerides 68 mg/dl (30-150); VLDL Cholesterol 14 mg/dL (0-40)
[2024-04-19 11:23] LABS: Direct LDL Cholesterol 77.86 mg/dL (100-129)
[2024-04-19 11:29] LABS: 25-OH Vitamin D, Total 31.2 ng/mL (30-100); T4 (Thyroxine) 7.7 ug/dl (5.53-11.0)
[2024-04-19 11:43] LABS: Thyroid Stimulating Hormone 1.49 uIU/mL (0.465-4.68)
[2024-04-19 11:47] LABS: Hemoglobin A1C 4.6 % (4.0-6.0)
[2024-04-19 12:54] LABS: HIV (1&2) Antibody Rapid NONREACTIVE (NONREACTIVE)
[2024-04-20 09:22] LABS: HBsAg Screen Negative (Negative); HCV Ab Non Reactive (Non Reactive); Hep A Ab, IGM Negative (Negative); Hep B Core Ab, IgM Negative (Negative)
[2024-04-20 12:14] LABS: FSH 5.9 mIU/mL (.); LH 9.4 mIU/mL (.)
[2024-05-01 09:56] LABS: Miscellaneous Test SCANNED IMAGE
== END 2024-04-19 23:59 | disposition home or self-care (01) ==
LOC: LAB.DROPOF 04-20 10:50
PROVIDERS: PCP Nurse Practitioner Family; Visit Provider Nurse Practitioner Family
DX: E28.2 Polycystic ovarian syndrome (principal); K58.1 Irritable bowel syndrome with constipation; R63.4 Abnormal weight loss; N93.9 Abnormal uterine and vaginal bleeding, unspecified; K59.09 Other constipation; E66.9 Obesity, unspecified; Z68.32 Body mass index [BMI] 32.0-32.9, adult
CPT/HCPCS: 80050; 80053; 80061; 80074; 82306; 83001; 83002; 83036; 84436; 84443; 85025; 86803; 87389

== ENCOUNTER 2024-06-28 11:06 | Emergency (ER) | payer OTHER, SELFPAY ==
[2024-06-28 12:10] VITALS: BP 107/51; PULSE 73; RESP 20; TEMP 37.2; O2SAT 100; BMI 37.3
[2024-06-28 12:26] LABS: UTC Pregnancy Test, Urine Negative (Negative)
[2024-06-28 12:27] LABS: Apearance,Urine Cloudy (Clear); Bilirubin,Urine Negative (Negative); Blood, Urine Trace (Negative); Color,Urine Yellow (Yellow); Glucose,Urine (UA) Negative (Negative); Ketones,Urine Negative (Negative); Protein,Urine Negative (Negative); Specific Gravity, Urine >= 1.030 (1.005-1.030); UTC Leukocyte Esterase,Urine 1+ (Negative); UTC Nitrate,Urine Negative (Negative); Urobilinogen,Urine 0.2 EU/dl (0.2)
--- NOTE | 2024-06-28 12:29 | ED_ITS ---
Discharge Plan Disposition Patient Disposition: Home, Self-Care Condition: Good Prescriptions Prescriptions: No Action semaglutide 0.25 mg or 0.5 mg (2 mg/3 mL) pen injector 0.25 mg SQ WEEKLY Rx Instructions: for 4 weeks Classic 28 mg iron- 800 mcg tablet 1 tab PO DAILY azelastine 137 mcg (0.1 %) spray,non-aerosol 137 mcg intranasal BID Qty: 8.22 2RF Rx Instructions: administer into each nostril Referrals Follow up/Referrals: Deni Zheng APRN [Primary Care Provider] - See instructions Activity Restrictions/Add. Instructions Additional Instructions/Restrictions: Monitor Temp, Over the counter Motrin or Tylenol as directed/as needed Tylenol every 4 hours and Motrin every 6 hours (as long as your family doctor has told you that you can take it) for fever or pain. and straight to ER if unable to lower temp less than 101.0 after medication given *Warm salt water gargles may help to soothe the throat *Throat Lozenges? *Warm fluids like tea with honey may help to soothe the throat? *Sleep elevated *Humidifier/Vaporizer Make sure to drink plenty of fluids Your throat swab was sent for culture. Those results are typically sent to your primary care. Be sure to follow up in 2-3 days with your family doctor/primary care physician if no improvement so they can review those result and treat if necessary. If you don?t have a primary care doctor, I recommend you get one but in the mean time, you will have to return to a walk in clinic Follow up IMMEDIATELY for new or worsening symptoms or no Noticeable improvement over the next 48-72 hours. 911 for difficulty breathing or swallowing Clinical Impressions Clinical Impression: Viral syndrome Stand Alone Forms Stand Alone Forms: Work/School Release Instructions Patient Instructions: DI for Viral Syndrome Print Language Print Language: Sinhala Discharge ED Provider: Aylin Mortensen [facility] [place] HPI General Stated complaint: body aches, sore throat, congestion Mode of Arrival: Ambulatory Source of Information: Patient Limitations: No Limitations Time Seen by Provider: 06/28/24 12:29 Description of Symptoms (Recalled from Triage Doc. by RN): PATIENT C/O SORE THROAT, FEVER, CHILLS, NASAL CONGESTION, BODY ACHES, AND SINUS PRESSURE AND DRAINAGE THAT STARTED THIS MORNING. PATIENT ALSO STATES THAT SHE IS HAVING SOME PELVIC PRESSURE HEENT Symptoms (Recalled from RN notes): Yes Resp Symptoms (Recalled from RN notes): No Skin Symptoms (Recalled from RN notes): No MS Symptoms (Recalled from RN notes): No Functional Status (Recalled from RN notes): WNL History of Present Illness Provider Complaint: Patient states that she woke up this morning with body aches, chills, fever, nasal congestion and feels like she cannot get warm since this morning States that after getting to work she continued to feel worse so she came in to get checked States also wanted to get checked for UTI States that she has hx of PCOS and has been having some pelvic pressure Related Data Home Medications ?Medication ?Instructions ?Recorded ?Confirmed semaglutide 0.25 mg or 0.5 mg (2 0.25 mg SQ WEEKLY 05/21/24 06/28/24 mg/3 mL) subcutaneous pen injector vits no.126-ferrous fum 1 tab PO DAILY 06/25/24 06/28/24 28 mg iron-folic acid 800 mcg tablet (Classic ) Previous Rx's ?Medication ?Instructions ?Recorded azelastine 137 mcg (0.1 %) nasal 137 mcg (0.137 mL) intranasal BID 06/15/24 spray #8.22 mL Allergies Allergy/AdvReac Type Severity Reaction Status Date / Time metoclopramide (From Reglan) Allergy Mild Hives Verified 06/25/24 15:45 azithromycin Allergy Verified 06/25/24 15:45 famotidine (From Pepcid) Allergy Verified 06/25/24 15:45 prochlorperazine (From Allergy Verified 06/25/24 15:45 Compazine) levothyroxine AdvReac Intermediate hot flashes Verified 06/25/24 15:45 Worker's Comp Is this a Worker's Comp case?: No [facility] PFS Disclaimer: The information contained in this section may have been updated after the patient was seen, as this information can be updated by other users. Medical History (Updated 06/28/24 @ 12:41 by Aylin Mortensen APRN) Obesity (BMI 35.0-39.9 without comorbidity) Patient desires PAC (premature atrial contraction) PVC (premature ventricular contraction) Irritable bowel syndrome (IBS) Hemorrhoid Allergies Depression Anxiety Urinary tract infection Kidney stone History of gastroesophageal reflux (GERD) Migraine Surgical History (Updated 06/25/24 @ 15:54 by RACHAEL Payan) History of cholecystectomy H/O umbilical hernia repair [place] teeth removed H/O adenoidectomy History of tonsillectomy Family History Other Family history of hypothyroidism Family history of myocardial infarction Social History Smoking Status: Current every day smoker tobacco type: e-cigarettes second hand exposure: Yes alcohol intake: current alcohol intake frequency: holidays/special occasions only substance use type: denies use current occupational status: employed Travel in the last 8 weeks: None household members: family and children housing: house lives independently: Yes marital status: education level: college service: No group home: No current occupational exposures/hazards: No caffeine: Yes special ronaldo needs: No agree to transfusion: No do you feel safe at home: Yes victim of physical abuse: No victim of emotional abuse: No victim of sexual abuse: No would you like helpful sources: No ROS Obtained: Yes All systems reviewed & no additional complaints except as documented and Yes Systems reviewed as appropriate & no additional complaints except as documented Constitutional Constitutional: Reports system reviewed and no additional complaints, except as documented, Reports as per HPI, Reports body ache, Reports chills, Reports fatigue, Reports fever(s) and Reports headache(s) ENT Ears, Nose, Mouth, and Throat: Reports system reviewed and no additional complaints, except as documented, Reports as per HPI, Reports headache(s), Reports nasal congestion, Reports nasal discharge and Reports sore throat Cardiovascular Cardiovascular: Reports system reviewed and no additional complaints, except as documented and Reports as per HPI Respiratory Respiratory: Reports system reviewed and no additional complaints, except as documented and Reports as per HPI Gastrointestinal Gastrointestingal: Reports system reviewed and no additional complaints, except as documented and as per HPI; Denies abdominal pain Genitourinary Female Genitourinary: Reports system reviewed and no additional complaints, except as documented, Reports as per HPI and Reports pelvic pain Musculoskeletal Musculoskeletal: Reports system reviewed and no additional complaints, except as documented and Reports as per HPI Integumentary/Breasts Skin/Breast: Reports system reviewed and no additional complaints, except as documented and Reports as per HPI Neurologic Neurologic: Reports system reviewed and no additional complaints, except as documented, Reports as per HPI and Reports headache(s) Endocrine Endocrine: Reports fatigue Physical Exam General General appearance: alert and in no apparent distress ENT ENT exam: Present normal exam, mucous membranes moist and TM's normal bilaterally Respiratory Respiratory exam: Present normal lung sounds bilaterally; Absent respiratory distress or wheezes Cardiovascular Cardiovascular exam: Present regular rate, normal rhythm and normal heart sounds Neurological Exam Neurological exam: Present alert, oriented X3 and normal gait Medical Decision Making Medical Records Screening: Per USPSTF and CDC recommendations, given the prevalence of disease in our region, it is our hospital?s policy to screen for HIV and viral Hepatitis for all patients aged 18 and over and those with ongoing risk factors. Alli Inquiry Pt receiving controlled substance: No Alli was queried for this patient: No Vital Signs: 06/28/24 12:10 Temperature 99.0 F Temperature Source Oral Pulse Rate [Left Brachial] 73 Respiratory Rate 20 Blood Pressure [Left Arm] 107/51 L Blood Pressure Mean [Left Arm] 69 Blood Pressure Source [Left Arm] Automatic Cuff Blood Pressure Position [Left Arm] Sitting 02 Sat by Pulse Oximetry 100 Oxygen Delivery Method Room Air Lab Data Lab results reviewed: Yes I reviewed the patient's lab results. Lab Results 06/28/24 12:25: Urine Color Yellow, Urine Appearance Cloudy, Urine pH 6.0, Ur Specific [place] >= 1.030, Urine Protein Negative, Urine Glucose (UA) Negative, Urine Ketones Negative, Urine Blood Trace, Urine Nitrate Negative, Urine Bilirubin Negative, Urine Urobilinogen 0.2, Ur Leukocyte Esterase 1+ A 06/28/24 12:26: Tst Clinic Negative Orders (Tests/Meds): ORDERS Category Date Time Status Urine Culture Stat Micro 06/28/24 12:26 Ordered
[2024-06-28 12:32] LABS: UTC Influenza A Antigen Negative (Negative); UTC Influenza B Antigen Negative (Negative)
[2024-06-28 12:33] LABS: UTC Strep Screen (Rapid) Negative (Negative)
[2024-06-28 12:43] VITALS: BP 107/51; PULSE 73; RESP 20; TEMP 37.2; O2SAT 100
[2024-06-28 13:24] LABS: Influenza A, PCR Not Detected (NotDetected); Influenza B, PCR Not Detected (NotDetected)
[2024-06-28 13:25] LABS: Coronavirus 19, PCR Detected (NotDetected)
== END 2024-06-28 12:49 | disposition home or self-care (01) ==
PROVIDERS: Emergency Provider Nurse Practitioner; PCP Nurse Practitioner Family
DX: B34.9 Viral infection, unspecified (principal); R50.9 Fever, unspecified; R09.81 Nasal congestion; J02.9 Acute pharyngitis, unspecified; M79.10 Myalgia, unspecified site; R10.2 Pelvic and perineal pain; R51.9 Headache, unspecified
CPT/HCPCS: 81003; 81025; 87086; 87636; 87804; 87880; 99212; G0381

== ENCOUNTER 2024-07-03 09:24 | Outpatient (CLI) | payer OTHER, SELFPAY ==
--- NOTE | 2024-07-03 09:24 | US_ITS ---
PROCEDURE: US TRANSVAGINAL CLINICAL INDICATION: pelvic pain COMPARISON: CT CT ABDOMEN PELVIS W CON from 07/19/2022 MR MR ABDOMEN WO/W CON from 10/02/2022 FINDINGS: Transvaginal sonographic images of the pelvis were obtained. UTERUS: 7.5cm x 5.6cmx 4.1cm anteverted with a combined endometrial thickness of 11.5mm. There is a small nabothian cyst in the cervix. LEFT OVARY: 2.0cmx2.8 cmx3.4cm with a volume of 9.9ml. The left ovary is more difficult to visualize. There is a 1 cm follicle in the left ovary. There are multiple small peripheral for follicles. RIGHT OVARY: 1.4cmx 2.8 cmx3.0cm with a volume of 6.1ml. There are multiple small peripheral follicles giving the ovary a polycystic appearance. Both ovaries are seen and appear polycystic. Doppler flow to both ovaries are seen. There is moderate fluid in the cul-de-sac. IMPRESSION: 1. Anteverted uterus normal in shape and size. The endometrium is homogeneous and likely premenstrual. 2. Both ovaries are seen and appear polycystic. 3. There is moderate fluid in the cul-de-sac. Dictated by: Giacomo Webster MD 07/03/2024 10:54 Giacomo Webster MD in OV 07/03/2024 10:54
== END 2024-07-03 23:59 | disposition home or self-care (01) ==
LOC: RAD 09:24
PROVIDERS: PCP Nurse Practitioner Family; Visit Provider Obstetrics & Gynecology
DX: R10.2 Pelvic and perineal pain (principal)
CPT/HCPCS: 76830

== ENCOUNTER 2024-08-02 14:54 | Outpatient (CLI) | payer OTHER, SELFPAY ==
[2024-08-02 15:54] VITALS: BMI 36.3
== END 2024-08-02 23:59 | disposition home or self-care (01) ==
LOC: DIETICIAN 14:55
PROVIDERS: PCP Nurse Practitioner Family; Visit Provider Obstetrics & Gynecology
DX: E66.9 Obesity, unspecified (principal); Z31.9 Encounter for procreative management, unspecified; Z71.3 Dietary counseling and surveillance
CPT/HCPCS: 97802

== ENCOUNTER 2024-08-08 15:25 | Outpatient (CLI) | payer OTHER, SELFPAY ==
[2024-08-08 18:09] LABS: Hematocrit 33.8 % (37.0-47.0); Mean Corpuscular HGB Conc 32.5 g/dL (31.8-35.4); Mean Corpuscular Hemoglobin 29.1 pg (27.0-31.2); Mean Corpuscular Volume 89.4 fl (81-99); Mean Platelet Volume 12.4 fl (7.4-10.4); Platelet Count 232 K/mm3 (142-424); Red Blood Count 3.78 M/mm3 (4.20-5.40); Red Cell Distribution Width 12.5 % (11.5-17.5); White Blood Count 5.6 K/mm3 (4.8-10.8)
[2024-08-08 18:10] LABS: Basophils % 0.2 % (0.1-2.0); Eosinophils % 0.4 % (0.1-12.0); Lymphocytes # 1.4 K/mm3 (0.7-4.5); Monocytes # 0.3 K/mm3 (0.1-1.0); Monocytes % 5.2 % (1.7-9.3); Neutrophils # 3.8 K/mm3 (1.8-7.8)
[2024-08-08 18:48] LABS: Alanine Aminotransferase 16 U/L (12-78); Albumin Level 4.1 g/dl (3.5-5.0); Alkaline Phosphatase 37 U/L (38-126); Aspartate Amino Transferase 20 U/L (14-36); Potassium 4.1 mmoL/L (3.5-5.1); Sodium 140 mmol/L (136-145)
[2024-08-08 18:51] LABS: Blood Urea Nitrogen 16 mg/dl (7-17); Calcium 9.3 mg/dl (8.4-10.2); Chloride 105 mmol/L (98-107); Estimated Glomerular Filt Rate 85 ml/min (>60); GFR (African American) 103 ML/MIN (>60); Glucose 76 mg/dl (74-100)
[2024-08-08 18:53] LABS: Bilirubin,Total 0.1 mg/dl (0.2-1.3)
[2024-08-08 19:07] LABS: 25-OH Vitamin D, Total 31.5 ng/mL (30-100)
[2024-08-08 19:19] LABS: Anion Gap 13.1 mEq/L (5-15); Carbon Dioxide 26 mmol/L (22.0-30.0)
[2024-08-08 19:20] LABS: Albumin/Globulin Ratio 1.5 (1.1-1.8); Globulin 2.8 g/dL (1.3-3.2); Total Protein,Serum 6.9 g/dl (6.3-8.2)
[2024-08-08 19:22] LABS: Thyroid Stimulating Hormone 0.43 uIU/mL (0.465-4.68)
[2024-08-08 19:40] LABS: Vitamin B12 925 pg/mL (239-931)
== END 2024-08-08 23:59 | disposition home or self-care (01) ==
LOC: LAB.DROPOF 08-09 10:18
PROVIDERS: PCP Nurse Practitioner Family; Visit Provider Family Medicine
DX: R53.83 Other fatigue (principal); B34.9 Viral infection, unspecified; E66.9 Obesity, unspecified; Z68.35 Body mass index [BMI] 35.0-35.9, adult
CPT/HCPCS: 80053; 82306; 82607; 84443; 85025

== ENCOUNTER 2024-08-21 08:48 | Emergency (ER) | payer OTHER, SELFPAY ==
[2024-08-21 09:05] VITALS: BP 102/57; PULSE 69; RESP 18; TEMP 36.8; O2SAT 98; BMI 38.2
[2024-08-21 09:20] LABS: UTC Influenza A Antigen Negative (Negative); UTC Strep Screen (Rapid) Negative (Negative)
[2024-08-21 09:21] LABS: UTC Influenza B Antigen Negative (Negative)
--- NOTE | 2024-08-21 09:28 | ED_ITS ---
Discharge Plan Disposition Patient Disposition: Home, Self-Care Condition: Good Prescriptions Prescriptions: New zxojxqgrapqegjx-cvwpyfjnt-SU [Bromfed DM] 2-30-10 mg/5 mL Syrup 5 ml PO Q6H PRN (Reason: Cough) Qty: 240 0RF ondansetron 4 mg Tablet,Disintegrating 4 mg PO Q8H PRN (Reason: Nausea) Qty: 12 0RF amoxicillin 500 mg tablet 500 mg PO TID 10 Days Qty: 30 0RF fluconazole 150 mg tablet 150 mg PO ONCE Qty: 1 3RF Referrals Follow up/Referrals: Deni Zheng APRN [Primary Care Provider] - See instructions Activity Restrictions/Add. Instructions Additional Instructions/Restrictions: Drink plenty of fluids. Take tylenol or ibuprofen for pain or fever. Take the medications as directed. Follow up with your regular doctor. GO TO THE ER FOR ANY WORSENING SYMPTOMS Clinical Impressions Clinical Impression: Acute viral syndrome, Sinusitis Stand Alone Forms Stand Alone Forms: Work/School Release Instructions Patient Instructions: Sinusitis, DI for Sinusitis Print Language Print Language: Armenian Discharge ED Provider: Larry Neri [facility] [place] HPI General Stated complaint: sore throat, fever, fatigue, h/a, b/a Mode of Arrival: Ambulatory Source of Information: Patient Time Seen by Provider: 08/21/24 09:27 Description of Symptoms (Recalled from Triage Doc. by RN): SORE THROAT, FEVER, FATIGUE , BA HEENT Symptoms (Recalled from RN notes): Yes Resp Symptoms (Recalled from RN notes): Yes Skin Symptoms (Recalled from RN notes): No MS Symptoms (Recalled from RN notes): No Functional Status (Recalled from RN notes): WNL Related Data Previous Rx's ?Medication ?Instructions ?Recorded amoxicillin 500 mg tablet 500 mg PO TID 10 days #30 tabs 08/21/24 btenkvclvbzdopi-xmtdtvhjzfucgrw-LE 5 ml PO Q6H PRN Cough #240 mL 08/21/24 2 mg-30 mg-10 mg/5 mL oral syrup (Bromfed DM) fluconazole 150 mg tablet 150 mg PO ONCE 1 dose #1 tab 08/21/24 ondansetron 4 mg disintegrating 4 mg PO Q8H PRN Nausea #12 tabs 08/21/24 tablet Allergies Allergy/AdvReac Type Severity Reaction Status Date / Time metoclopramide (From Reglan) Allergy Mild Hives Verified 08/08/24 15:02 azithromycin Allergy Verified 08/08/24 15:02 famotidine (From Pepcid) Allergy Verified 08/08/24 15:02 prochlorperazine (From Allergy Verified 08/08/24 15:02 Compazine) levothyroxine AdvReac Intermediate hot flashes Verified 08/08/24 15:02 Worker's Comp Is this a Worker's Comp case?: No PFSH PFS Disclaimer: The information contained in this section may have been updated after the patient was seen, as this information can be updated by other users. Medical History (Updated 08/21/24 @ 10:09 by Larry Neri APRN) Bloating Sinusitis Pleurisy Recurrent candidiasis of vagina Viral URI with cough Bronchitis Obesity (BMI 35.0-39.9 without comorbidity) Patient desires PAC (premature atrial contraction) PVC (premature ventricular contraction) Irritable bowel syndrome (IBS) Hemorrhoid Allergies Depression Anxiety Urinary tract infection Kidney stone History of gastroesophageal reflux (GERD) Migraine Surgical History History of cholecystectomy H/O umbilical hernia repair [place] teeth removed H/O adenoidectomy History of tonsillectomy Family History Other Family history of hypothyroidism Family history of myocardial infarction Social History Smoking Status: Current every day smoker tobacco type: e-cigarettes second hand exposure: Yes alcohol intake: current alcohol intake frequency: holidays/special occasions only substance use type: denies use current occupational status: employed Travel in the last 8 weeks: None household members: family and children housing: house lives independently: Yes marital status: education level: college service: No prison: No current occupational exposures/hazards: No caffeine: Yes special ronaldo needs: No agree to transfusion: No do you feel safe at home: Yes victim of physical abuse: No victim of emotional abuse: No victim of sexual abuse: No would you like helpful sources: No Have you lived/traveled outside [place] in past 30 days?: No Contact w/someone who lives/traveled outside [place] past 30 days?: No Exposure to someone with infectious disease in past 14 days?: Yes Do you have a fever (greater than 100.4 F or 38 C)?: Yes Have you tested positive for COVID-19: No Exposed to someone with COVID-19 in past 14 days?: Yes Do you have a sore throat?: Yes Do you have a cough?: No Do you have any weakness?: Yes Do you have any diarrhea?: No Are you experiencing any unusual bleeding?: No Do you have any muscle aches/pain?: Yes Do you have any abdominal pain?: No Are you experiencing loss of taste or smell?: No ROS Obtained: Yes All systems reviewed & no additional complaints except as documented Constitutional Constitutional: Reports chills and Reports fever(s) Eyes Eyes: Denies eye discharge ENT Ears, Nose, Mouth, and Throat: Reports as per HPI Cardiovascular Cardiovascular: Denies chest pain Respiratory Respiratory: Denies chest congestion and Reports cough Gastrointestinal Gastrointestingal: Reports nausea; Denies abdominal pain, constipation, cramping, diarrhea or vomiting Musculoskeletal Musculoskeletal: Denies arthralgias Integumentary/Breasts Skin/Breast: Denies rash Neurologic Neurologic: Denies paresthesias Physical Exam General General appearance: alert and in no apparent distress Eye Eye exam: Present normal appearance, PERRL and EOMI ENT ENT exam: Present mucous membranes moist and normal external ear exam Expanded ENT Exam External ear exam: Present normal external inspection TM/Canal exam: Bilateral TM: erythema and bulging Nose exam: Absent sinus tenderness Nasal speculum exam: Bilateral: normal Mouth exam: Present normal external inspection; Absent drooling Teeth exam: Present normal inspection Throat exam: Present tonsillar erythema and tonsillomegaly Neck Neck exam: Present normal inspection, full ROM and trachea midline; Absent tenderness, lymphadenopathy or thyromegaly Chest Chest inspection: Present normal inspection and symmetric chest wall rise; Absent tenderness or rash Respiratory Respiratory exam: Present normal lung sounds bilaterally; Absent respiratory distress, wheezes, stridor or accessory muscle use Cardiovascular Cardiovascular exam: Present regular rate, normal rhythm and normal heart sounds Abdominal Exam Abdominal exam: Present soft; Absent distention, tenderness, guarding, rebound or rigidity Extremities Exam Extremities exam: Present normal inspection, full ROM and normal capillary refill; Absent tenderness or calf tenderness Back Exam Back exam: Present normal inspection and full ROM; Absent tenderness Neurological Exam Neurological exam: Present alert and oriented X3 Psychiatric Psychiatric exam: Present normal affect and normal mood Skin Skin exam: Present warm, dry, intact and normal color Lymphatic Lymphatic Findings: no adenopathy Medical Decision Making Medical Records Medical records reviewed: No I reviewed the patient's medical records. Screening: Per USPSTF and CDC recommendations, given the prevalence of disease in our region, it is our hospital?s policy to screen for HIV and viral Hepatitis for all patients aged 18 and over and those with ongoing risk factors. Alli Inquiry Pt receiving controlled substance: No Vital Signs: 08/21/24 09:05 Temperature 98.2 F Temperature Source Oral Pulse Rate [Left Radial] 69 Respiratory Rate 18 Blood Pressure [Left Arm] 102/57 L Blood Pressure Mean [Left Arm] 72 02 Sat by Pulse Oximetry 98 Lab Data Lab results reviewed: Yes I reviewed the patient's lab results. Lab Results 08/21/24 09:08: Influenza Type A Ag Negative, Influenza Type B Ag Negative, Strep Scn Rapid Clinic Negative Orders (Tests/Meds): ORDERS Category Date Time Status Strep Screen Confirmation Stat Micro 08/21/24 09:08 Received
[2024-08-21 10:11] VITALS: BP 102/57; PULSE 69; RESP 18; TEMP 36.8
[2024-08-21 10:19] LABS: Coronavirus 19, PCR Not Detected (NotDetected); Influenza A, PCR Not Detected (NotDetected); Influenza B, PCR Not Detected (NotDetected)
== END 2024-08-21 10:17 | disposition home or self-care (01) ==
PROVIDERS: Emergency Provider Nurse Practitioner Family; PCP Nurse Practitioner Family
DX: B34.9 Viral infection, unspecified (principal)
CPT/HCPCS: 87636; 87804; 87880; 99213; G0381

== ENCOUNTER 2024-09-12 12:31 | Outpatient (CLI) | payer OTHER, SELFPAY ==
[2024-09-12 12:44] LABS: Hematocrit 37.7 % (37.0-47.0); Hemoglobin 12.3 g/dL (12.2-16.2)
== END 2024-09-12 23:59 | disposition home or self-care (01) ==
LOC: LAB 12:32
PROVIDERS: PCP Nurse Practitioner Family; Visit Provider Obstetrics & Gynecology
DX: N92.6 Irregular menstruation, unspecified (principal)
CPT/HCPCS: 36415; 85014; 85018

== ENCOUNTER 2024-09-28 16:37 | Outpatient (CLI) | payer OTHER, SELFPAY ==
[2024-09-28 18:22] LABS: HCG,Quantitative < 2 mIU/ml (0-5.42)
[2024-09-29 08:20] LABS: Progesterone 11.1 ng/mL (.)
== END 2024-09-28 23:59 | disposition home or self-care (01) ==
LOC: LAB 16:38
PROVIDERS: Visit Provider Obstetrics & Gynecology
DX: Z32.01 Encounter for pregnancy test, result positive (principal)
CPT/HCPCS: 36415; 84144; 84702

== ENCOUNTER 2024-10-02 12:01 | Outpatient (CLI) | payer OTHER, SELFPAY ==
[2024-10-02 13:20] LABS: HCG,Quantitative 8 mIU/ml (0-5.42)
[2024-10-03 08:13] LABS: Progesterone 7.1 ng/mL (.)
== END 2024-10-02 23:59 | disposition home or self-care (01) ==
LOC: LAB 12:02
PROVIDERS: Visit Provider Obstetrics & Gynecology
DX: Z32.01 Encounter for pregnancy test, result positive (principal)
CPT/HCPCS: 36415; 84144; 84702

== ENCOUNTER 2024-10-04 10:03 | Outpatient (CLI) | payer OTHER, SELFPAY ==
[2024-10-04 11:33] LABS: HCG,Quantitative 33 mIU/ml (0-5.42)
== END 2024-10-04 23:59 | disposition home or self-care (01) ==
LOC: LAB 10:04
PROVIDERS: Visit Provider Obstetrics & Gynecology
DX: Z32.01 Encounter for pregnancy test, result positive (principal)
CPT/HCPCS: 36415; 84702

== ENCOUNTER 2024-10-08 08:33 | Outpatient (CLI) | payer OTHER, SELFPAY ==
[2024-10-08 10:44] LABS: HCG,Quantitative 338 mIU/ml (0-5.42)
== END 2024-10-08 23:59 | disposition home or self-care (01) ==
PROVIDERS: Visit Provider Obstetrics & Gynecology
DX: Z34.91 Encounter for supervision of normal pregnancy, unspecified, first trimester (principal); Z3A.01 Less than 8 weeks gestation of pregnancy
CPT/HCPCS: 36415; 84702

== ENCOUNTER 2024-10-10 21:16 | Emergency (ER) | payer OTHER, SELFPAY ==
[2024-10-10 21:29] VITALS: BP 136/80; PULSE 100; RESP 14; TEMP 37; O2SAT 100; BMI 37.9
--- NOTE | 2024-10-10 21:47 | US_ITS ---
PROCEDURE INFORMATION: Exam: US , Transvaginal Exam date and time: 10/10/2024 10:14 PM Age: 29 years old Clinical indication: complicated by abdominal or pelvic pain; Left lower quadrant; First trimester (<14 weeks 0 days); Gestational age or lmp: 5w0d; ; Additional info: Preg location, llq pain TECHNIQUE: Imaging protocol: Real-time transvaginal obstetrical ultrasound of the maternal pelvis with image documentation. Transvaginal imaging was used for better evaluation of the fetus, adnexa, and/or cervix. COMPARISON: US TRANSVAGINAL 07/03/2024 9:36 AM FINDINGS: Gestation: Single intrauterine gestation with a mean sac diameter of 0.39 cm. No yolk sac or pole visualized. Placenta: No retroplacental hemorrhage. BIOMETRY: Gestational age (AUA): 4 weeks 6 days MATERNAL: Uterus: Retroverted. Right ovary/adnexa: Unremarkable right ovary. Vascular flow present. No adnexal mass. Left ovary/adnexa: Unremarkable left ovary. 1.7 cm probable corpus luteum. Normal vascular flow. No adnexal mass. Intraperitoneal space: Small amount of free fluid within the pelvis. IMPRESSION: 1. Possible early intrauterine with an ultrasound estimated gestational age of 4 weeks 6 days. No yolk sac or pole identified. Though no adnexal masses were identified, non-visualized ectopic or failed cannot be excluded. Recommend close clinical follow-up with serial B-hCGs and repeat imaging as indicated. 2. Small amount of free fluid within the pelvis.
--- NOTE | 2024-10-10 21:53 | HMH.EDGENADL ---
Discharge Plan Disposition Patient Disposition: Home, Self-Care Condition: Good Prescriptions Prescriptions: New nitrofurantoin monohyd/m-cryst [Macrobid] 100 mg capsule 100 mg PO BID 7 Days Qty: 14 0RF Rx Instructions: must administer with a meal/food No Action magnesium glycinate 100 mg magnesium capsule 1 mg PO DAILY PNV [id number] fumarate-FA [] 28 mg iron- 800 mcg tablet 1 tab PO DAILY Patient Comments: TAKE ONE TABLET BY MOUTH EVERY DAY cephalexin 500 mg capsule 500 mg PO BID 7 Days Qty: 14 0RF progesterone micronized [Prometrium] 200 mg capsule 200 mg vaginal QHS 30 Days Qty: 30 2RF Referrals Follow up/Referrals: Provider,Referral, MD [Primary Care Provider] - See instructions Activity Restrictions/Add. Instructions Additional Instructions/Restrictions: Your evaluated in the ER and are appropriate for discharge at this time. Take the prescribed antibiotics as directed. Do not stop taking them early. Follow-up with OB, you need to have her hCG rechecked within 48 hours. Call them for an immediate appointment. Return to the ER with any new, worsening, or otherwise concerning symptoms as discussed. Clinical Impressions Clinical Impression: Asymptomatic bacteriuria, Left lower quadrant abdominal pain affecting Instructions Patient Instructions: DI for Acute Abdominal Pain Print Language Print Language: Hebrew Discharge ED Provider: Dami Taylor General Adult HPI <Dami Taylor MD - Last Filed: 10/10/24 23:23> General Chief complaint: Abdominal Pain Stated complaint: pelvic pressure HR 110 Time Seen by Provider: 10/10/24 21:44 Mode of Arrival: Ambulatory Source of Information: Patient Description of Symptoms (Recalled from ER Triage Doc. by RN): Patient is 5 weeks . Patient is having left groin pain radiating to the left flank. Patient denies vaginal bleeding. Patient is having urinary urgency and frequency and pelvic pressure. Patient has not had an ultrasound. History of Present Illness HPI narrative: Patient is a 29-year-old female G3, P1 EGA 5 weeks 1 day presents emergency department for evaluation of left lower quadrant discomfort. Onset was acute, occurring throughout the day. No vaginal bleeding or discharge. She has not had location established and is concerned and presents here for continued evaluation. No other acute complaints at this time. Please note that above description of symptoms, in this electronic medical record under categorization of recalled from ER triage doctor by RN are reflective of an initial nursing assessment, however, is not reflective of my full history and physical exam that was personally taken and clarified. Consequentially, this preceding description of symptoms, which may include the patient's categorized chief complaint in the EMR, do not reflect my personal clinical impression, and the ultimate description of history of present illness and patient stated complaints should be deferred to this section of the note. Unless stated otherwise or congruent with this section of the note, additional signs, symptoms, or incongruence should be interpreted as inaccurate with my clinical impression. Related Data Home Medications ?Medication ?Instructions ?Recorded ?Confirmed magnesium glycinate 1 mg PO DAILY 09/05/24 09/20/24 vit no.95-ferrous 1 tab PO DAILY 09/05/24 09/20/24 fumarate 28 mg-folic acid 800 mcg tablet () Previous Rx's ?Medication ?Instructions ?Recorded cephalexin 500 mg capsule 500 mg PO BID 7 days #14 caps 09/11/24 progesterone micronized 200 mg 200 mg vaginal QHS 30 days #30 caps 10/03/24 capsule (Prometrium) nitrofurantoin 100 mg PO BID 7 days #14 caps 10/11/24 monohydrate/macrocrystals 100 mg capsule (Macrobid) Allergies Allergy/AdvReac Type Severity Reaction Status Date / Time metoclopramide (From Reglan) Allergy Mild Hives Verified 09/20/24 16:43 azithromycin Allergy Verified 09/20/24 16:43 famotidine (From Pepcid) Allergy Verified 09/20/24 16:43 prochlorperazine (From Allergy Verified 09/20/24 16:43 Compazine) levothyroxine AdvReac Intermediate hot flashes Verified 09/20/24 16:43 PFSH <Dami Taylor MD - Last Filed: 10/10/24 23:23> [facility] Disclaimer: The information contained in this section may have been updated after the patient was seen, as this information can be updated by other users. Medical History (Updated 10/10/24 @ 23:22 by Dami Taylor MD) Influenza A Vaginal discharge Irregular periods/menstrual cycles Bloating Sinusitis Pleurisy Recurrent candidiasis of vagina Viral URI with cough Bronchitis Obesity (BMI 35.0-39.9 without comorbidity) Patient desires PAC (premature atrial contraction) PVC (premature ventricular contraction) Irritable bowel syndrome (IBS) Hemorrhoid Allergies Depression Anxiety Urinary tract infection Kidney stone History of gastroesophageal reflux (GERD) Migraine Surgical History History of cholecystectomy H/O umbilical hernia repair [place] teeth removed H/O adenoidectomy History of tonsillectomy Family History Other Family history of hypothyroidism Family history of myocardial infarction Social History Smoking Status: Current every day smoker tobacco type: e-cigarettes second hand exposure: Yes alcohol intake: current alcohol intake frequency: holidays/special occasions only substance use type: denies use current occupational status: employed Travel in the last 8 weeks: None household members: family and children housing: house lives independently: Yes marital status: education level: college service: No assisted: No current occupational exposures/hazards: No caffeine: Yes special ronaldo needs: No agree to transfusion: No do you feel safe at home: Yes victim of physical abuse: No victim of emotional abuse: No victim of sexual abuse: No would you like helpful sources: No Have you lived/traveled outside [place] in past 30 days?: No Contact w/someone who lives/traveled outside US past 30 days?: No Exposure to someone with infectious disease in past 14 days?: No Do you have a fever (greater than 100.4 F or 38 C)?: No Have you tested positive for COVID-19: No Exposed to someone with COVID-19 in past 14 days?: No Do you have a sore throat?: No Do you have a cough?: No Do you have any weakness?: No Do you have any diarrhea?: No Are you experiencing any unusual bleeding?: No Do you have any muscle aches/pain?: No Do you have any abdominal pain?: No Are you experiencing loss of taste or smell?: No Other Medical History Have you received the Flu Vaccine for this season: No Have you received the Pneumonia Vaccine: Yes <Dami Taylor MD - Last Filed: 10/10/24 23:23> ROS Obtained: Yes Systems reviewed as appropriate & no additional complaints except as documented Physical Exam <Dami Taylor MD - Last Filed: 10/10/24 23:23> General General appearance: alert and in no apparent distress Head Head exam: atraumatic and normocephalic Eye Eye exam: Present PERRL ENT ENT exam: Present mucous membranes moist Neck Neck exam: Present normal inspection Chest Chest inspection: Present normal inspection and symmetric chest wall rise Respiratory Respiratory exam: Absent respiratory distress Cardiovascular Cardiovascular exam: Present regular rate and normal rhythm Abdominal Exam Abdominal exam: Present soft; Absent tenderness, guarding or rebound Extremities Exam Extremities exam: Present normal inspection Neurological Exam Neurological exam: Present alert Psychiatric Psychiatric exam: Present normal affect Skin Skin exam: Present warm and dry Medical Decision Making <Dami Taylor MD - Last Filed: 10/10/24 23:23> Medical Records Screening: Per USPSTF and CDC recommendations, given the prevalence of disease in our region, it is our hospital?s policy to screen for HIV and viral Hepatitis for all patients aged 18 and over and those with ongoing risk factors. Alli Inquiry Pt receiving controlled substance: No Vital Signs: 10/10/24 21:29 10/10/24 22:00 10/10/24 22:15 Temperature 98.6 F Temperature Source Oral Pulse Rate 101 H 94 H Pulse Rate [Right] 100 H Respiratory Rate 14 Blood Pressure 121/44 L Blood Pressure [Right Arm] 136/80 Blood Pressure Mean [Right Arm] 98 02 Sat by Pulse Oximetry 100 99 99 Oxygen Delivery Method Room Air 10/10/24 22:49 10/10/24 23:01 10/10/24 23:30 Temperature Temperature Source Pulse Rate 106 H 95 H 94 H Pulse Rate [Right] Respiratory Rate Blood Pressure 108/58 L 101/62 L Blood Pressure [Right Arm] Blood Pressure Mean [Right Arm] 02 Sat by Pulse Oximetry 99 98 98 Oxygen Delivery Method 10/11/24 00:11 10/11/24 00:30 10/11/24 01:06 Temperature 98.4 F Temperature Source Pulse Rate 80 90 78 Pulse Rate [Right] Respiratory Rate 14 Blood Pressure 105/62 L 98/60 L 100/64 L Blood Pressure [Right Arm] Blood Pressure Mean [Right Arm] 02 Sat by Pulse Oximetry 98 99 Oxygen Delivery Method Room Air Room Air Lab Data Lab Results 10/10/24 21:51: Urine Color Yellow, Urine Appearance Clear, Urine pH 6.0, Ur Specific [place] >= 1.030, Urine Protein Negative, Urine Glucose (UA) Negative, Urine Ketones Negative, Urine Blood Negative, Urine Nitrate Negative, Urine Bilirubin Negative, Urine Urobilinogen 0.2, Ur Leukocyte Esterase Negative, Urine RBC 3-5, Urine WBC 3-5, Ur Squamous Epith Cells 3-5, Urine Bacteria 2+ 10/10/24 21:57: WBC 8.7, RBC 4.25, Hgb 12.3, Hct 37.2, MCV 87.5, MCH 28.9, MCHC 33.1, RDW 12.8, Plt Count 239, MPV 11.5 H, Neut % (Auto) 64.4, Lymph % (Auto) 29.4, [place] % (Auto) 5.2, Eos % (Auto) 0.5, Baso % (Auto) 0.3, Neut # (Auto) 5.6, Lymph # (Auto) 2.5, [place] # (Auto) 0.5, Eos # (Auto) 0.0, Baso # (Auto) 0.0, Sodium 139, Potassium 3.6, Chloride 105, Carbon Dioxide 26, Anion Gap 11.6, BUN 11, Creatinine 0.60, Estimated Creat Clear 233, Estimated GFR 118, Est GFR ( Amer) 143, Glucose 110 H, Calcium 9.5, Total Bilirubin 0.2, AST 21, ALT 19, Alkaline Phosphatase 53, Total Protein 7.3, Albumin 4.4, Globulin 2.9, Albumin/Globulin Ratio 1.5, HCG, Quant 1065 H 10/10/24 21:57 10/10/24 21:57 Orders (Tests/Meds): ED MEDICATIONS Discontinued Medications Generic Name Dose Route Start Last Admin Trade Name Freq PRN Reason Stop Dose Admin Acetaminophen 1,000 mg 10/10/24 21:47 10/10/24 21:57 Acetaminophen 500mg Tab PO 10/10/24 21:48 1,000 mg ONCE ONE Administration ORDERS Category Date Time Status US transvaginal Stat Exams 10/10/24 21:47 Completed CBC w/Auto Diff [Complete Blood Count Auto Diff] Stat Lab 10/10/24 21:57 Completed CMP [Comprehensive Metabolic Panel] Stat Lab 10/10/24 21:57 Completed HCG,Quantitative Stat Lab 10/10/24 21:57 Completed UA [Urinalysis and Microscopic] Stat Lab 10/10/24 21:51 Completed Urine Culture Stat Micro 10/10/24 21:51 Received Medical Decision Narrative: In summary patient is a 29-year-old female with past medical history described above who presents emergency department for evaluation of left lower quadrant discomfort in the setting of . Patient is hemodynamically stable nontoxic-appearing upon arrival, afebrile. Differential diagnosis includes normal , urinary tract infection, ectopic , among others. Patient does not have any right lower quadrant tenderness to suggest appendicitis therefore workup with labs and CT imaging was considered but will be deferred at this time. Workup for this will be conducted with hematologic labs quantitative hCG urinalysis, transvaginal ultrasound. Initial interventions include Tylenol. Initial workup reviewed by me, hematologic labs are nonactionable no significant leukocytosis or anemia no SOPHIA or critical electrolyte abnormality. Uptrending quantitative hCG. Urinalysis has asymptomatic bacteriuria which will require Macrobid. Transvaginal ultrasound conducted and formal results pending at time of transition of care to the oncoming physician, Dr. Montano. <Yary Montano MD - Last Filed: 10/11/24 03:45> Vital Signs: 10/10/24 21:29 10/10/24 22:00 10/10/24 22:15 Temperature 98.6 F Temperature Source Oral Pulse Rate 101 H 94 H Pulse Rate [Right] 100 H Respiratory Rate 14 Blood Pressure 121/44 L Blood Pressure [Right Arm] 136/80 Blood Pressure Mean [Right Arm] 98 02 Sat by Pulse Oximetry 100 99 99 Oxygen Delivery Method Room Air 10/10/24 22:49 10/10/24 23:01 10/10/24 23:30 Temperature Temperature Source Pulse Rate 106 H 95 H 94 H Pulse Rate [Right] Respiratory Rate Blood Pressure 108/58 L 101/62 L Blood Pressure [Right Arm] Blood Pressure Mean [Right Arm] 02 Sat by Pulse Oximetry 99 98 98 Oxygen Delivery Method 10/11/24 00:11 10/11/24 00:30 10/11/24 01:06 Temperature 98.4 F Temperature Source Pulse Rate 80 90 78 Pulse Rate [Right] Respiratory Rate 14 Blood Pressure 105/62 L 98/60 L 100/64 L Blood Pressure [Right Arm] Blood Pressure Mean [Right Arm] 02 Sat by Pulse Oximetry 98 99 Oxygen Delivery Method Room Air Room Air Lab Data Lab Results 10/10/24 21:51: Urine Color Yellow, Urine Appearance Clear, Urine pH 6.0, Ur Specific [place] >= 1.030, Urine Protein Negative, Urine Glucose (UA) Negative, Urine Ketones Negative, Urine Blood Negative, Urine Nitrate Negative, Urine Bilirubin Negative, Urine Urobilinogen 0.2, Ur Leukocyte Esterase Negative, Urine RBC 3-5, Urine WBC 3-5, Ur Squamous Epith Cells 3-5, Urine Bacteria 2+ 10/10/24 21:57: WBC 8.7, RBC 4.25, Hgb 12.3, Hct 37.2, MCV 87.5, MCH 28.9, MCHC 33.1, RDW 12.8, Plt Count 239, MPV 11.5 H, Neut % (Auto) 64.4, Lymph % (Auto) 29.4, [place] % (Auto) 5.2, Eos % (Auto) 0.5, Baso % (Auto) 0.3, Neut # (Auto) 5.6, Lymph # (Auto) 2.5, [place] # (Auto) 0.5, Eos # (Auto) 0.0, Baso # (Auto) 0.0, Sodium 139, Potassium 3.6, Chloride 105, Carbon Dioxide 26, Anion Gap 11.6, BUN 11, Creatinine 0.60, Estimated Creat Clear 233, Estimated GFR 118, Est GFR ( Amer) 143, Glucose 110 H, Calcium 9.5, Total Bilirubin 0.2, AST 21, ALT 19, Alkaline Phosphatase 53, Total Protein 7.3, Albumin 4.4, Globulin 2.9, Albumin/Globulin Ratio 1.5, HCG, Quant 1065 H Orders (Tests/Meds): ED MEDICATIONS Discontinued Medications Generic Name Dose Route Start Last Admin Trade Name Freq PRN Reason Stop Dose Admin Acetaminophen 1,000 mg 10/10/24 21:47 10/10/24 21:57 Acetaminophen 500mg Tab PO 10/10/24 21:48 1,000 mg ONCE ONE Administration ORDERS Category Date Time Status US transvaginal Stat Exams 10/10/24 21:47 Completed CBC w/Auto Diff [Complete Blood Count Auto Diff] Stat Lab 10/10/24 21:57 Completed CMP [Comprehensive Metabolic Panel] Stat Lab 10/10/24 21:57 Completed HCG,Quantitative Stat Lab 10/10/24 21:57 Completed UA [Urinalysis and Microscopic] Stat Lab 10/10/24 21:51 Completed Urine Culture Stat Micro 10/10/24 21:51 Received Medical Decision Narrative: In summary patient is a 29-year-old female with past medical history described above who presents emergency department for evaluation of left lower quadrant discomfort in the setting of . Patient is hemodynamically stable nontoxic-appearing upon arrival, afebrile. Differential diagnosis includes normal , urinary tract infection, ectopic , among others. Patient does not have any right lower quadrant tenderness to suggest appendicitis therefore workup with labs and CT imaging was considered but will be deferred at this time. Workup for this will be conducted with hematologic labs quantitative hCG urinalysis, transvaginal ultrasound. Initial interventions include Tylenol. Initial workup reviewed by me, hematologic labs are nonactionable no significant leukocytosis or anemia no SOPHIA or critical electrolyte abnormality. Uptrending quantitative hCG. Urinalysis has asymptomatic bacteriuria which will require Macrobid. Transvaginal ultrasound conducted and formal results pending at time of transition of care to the oncoming physician, Dr. Montano. Montano: Upon my assumption of care patient is stable, resting comfortably, I agree with the assessment and plan from Dr. Taylor. Transvaginal ultrasound was reviewed and demonstrates findings consistent with very early intrauterine , no obvious evidence of ectopic , small free fluid. With patient's uptrending hCG, resolution of symptoms in the ER, and reassuring ultrasound findings, I believe she is appropriate for close outpatient follow-up at this time. She is comfortable with this plan. 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 I prescribed Macrobid for treatment of asymptomatic bacteriuria. Patient was given instructions on symptomatic management, close follow up instructions, and strict return precautions for the emergency department. Patient indicated understanding and was discharged in stable condition. Critical Care <Dami Taylor MD - Last Filed: 10/10/24 23:23> Critical Care Time Critical Care Time: No
[2024-10-10 21:55] LABS: Microscopic, Urine URINE MICROSCOPIC (MICROSCOPIC)
[2024-10-10 21:56] LABS: Appearance,Urine CLEAR (Clear); Bilirubin,Urine Negative (Negative); Blood, Urine Negative (Negative); Color,Urine YELLOW (Yellow); Glucose,Urine (UA) Negative (Negative); Ketones,Urine Negative (Negative); Leukocyte Esterase,Urine Negative (Negative); Nitrate,Urine Negative (Negative); Protein,Urine Negative (Negative); Specific Gravity, Urine >= 1.030 (1.005-1.030); Urobilinogen,Urine 0.2 EU/dl (0.2)
[2024-10-10] MEDS: ACETAMINOPHEN 500MG TAB 1000 MG PO (21:57)
[2024-10-10 22:00] VITALS: BP 121/44; PULSE 101; O2SAT 99
[2024-10-10 22:08] LABS: Basophils % 0.3 % (0.1-2.0); Eosinophils % 0.5 % (0.1-12.0); Hematocrit 37.2 % (37.0-47.0); Hemoglobin 12.3 g/dL (12.2-16.2); Lymphocytes # 2.5 K/mm3 (0.7-4.5); Lymphocytes % 29.4 % (10-50); Mean Corpuscular HGB Conc 33.1 g/dL (31.8-35.4); Mean Corpuscular Hemoglobin 28.9 pg (27.0-31.2); Mean Corpuscular Volume 87.5 fl (81-99); Mean Platelet Volume 11.5 fl (7.4-10.4); Monocytes # 0.5 K/mm3 (0.1-1.0); Monocytes % 5.2 % (1.7-9.3); Neutrophils # 5.6 K/mm3 (1.8-7.8); Neutrophils % 64.4 % (37.0-80.0); Platelet Count 239 K/mm3 (142-424); Red Blood Count 4.25 M/mm3 (4.20-5.40); Red Cell Distribution Width 12.8 % (11.5-17.5); White Blood Count 8.7 K/mm3 (4.8-10.8)
[2024-10-10 22:15] VITALS: PULSE 94; O2SAT 99
[2024-10-10 22:15] LABS: Albumin Level 4.4 g/dl (3.5-5.0); Chloride 105 mmol/L (98-107)
[2024-10-10 22:16] LABS: Potassium 3.6 mmoL/L (3.5-5.1); Sodium 139 mmol/L (136-145)
[2024-10-10 22:16] LABS: Bacteria,Urine 2+ /lpf
[2024-10-10 22:18] LABS: Alanine Aminotransferase 19 U/L (12-78); Anion Gap 11.6 mEq/L (5-15); Aspartate Amino Transferase 21 U/L (14-36); Blood Urea Nitrogen 11 mg/dl (7-17); Carbon Dioxide 26 mmol/L (22.0-30.0); Creatinine Clearance Estimated 233 mL/min (50-200); Estimated Glomerular Filt Rate 118 ml/min (>60); GFR (African American) 143 ML/MIN (>60)
[2024-10-10 22:19] LABS: Albumin/Globulin Ratio 1.5 (1.1-1.8); Alkaline Phosphatase 53 U/L (38-126); Bilirubin,Total 0.2 mg/dl (0.2-1.3); Calcium 9.5 mg/dl (8.4-10.2); Globulin 2.9 g/dL (1.3-3.2); Glucose 110 mg/dl (74-100); Total Protein,Serum 7.3 g/dl (6.3-8.2)
[2024-10-10 22:37] LABS: HCG,Quantitative 1065 mIU/ml (0-5.42)
[2024-10-10 22:49] VITALS: PULSE 106; O2SAT 99
[2024-10-10 23:01] VITALS: BP 108/58; PULSE 95; O2SAT 98
[2024-10-10 23:30] VITALS: BP 101/62; PULSE 94; O2SAT 98
[2024-10-11 00:11] VITALS: BP 105/62; PULSE 80; O2SAT 98
[2024-10-11 00:30] VITALS: BP 98/60; PULSE 90; O2SAT 99
[2024-10-11 01:06] VITALS: BP 100/64; PULSE 78; RESP 14; TEMP 36.9; O2SAT 99
== END 2024-10-11 01:10 | disposition home or self-care (01) ==
PROVIDERS: Emergency Provider Emergency Medicine
DX: O26.899 Other specified pregnancy related conditions, unspecified trimester (principal); R10.9 Unspecified abdominal pain; O23.91 Unspecified genitourinary tract infection in pregnancy, first trimester
CPT/HCPCS: 76830; 80053; 81001; 84702; 85025; 87086; 99284

== ENCOUNTER 2024-10-16 15:29 | Outpatient (CLI) | payer OTHER, SELFPAY ==
[2024-10-16 16:48] LABS: Basophils % 0.3 % (0.1-2.0); Eosinophils % 0.1 % (0.1-12.0); Hematocrit 37.8 % (37.0-47.0); Hemoglobin 12.4 g/dL (12.2-16.2); Lymphocytes # 1.7 K/mm3 (0.7-4.5); Mean Corpuscular HGB Conc 32.8 g/dL (31.8-35.4); Mean Corpuscular Hemoglobin 29.2 pg (27.0-31.2); Mean Corpuscular Volume 88.9 fl (81-99); Monocytes # 0.4 K/mm3 (0.1-1.0); Monocytes % 5.4 % (1.7-9.3); Neutrophils # 5.6 K/mm3 (1.8-7.8); Neutrophils % 72.1 % (37.0-80.0); Platelet Count 248 K/mm3 (142-424); Red Blood Count 4.25 M/mm3 (4.20-5.40); Red Cell Distribution Width 13.2 % (11.5-17.5); White Blood Count 7.7 K/mm3 (4.8-10.8)
[2024-10-16 22:05] LABS: RPR W/RFX Titers Nonreactive (Nonreactive)
[2024-10-17 05:12] LABS: Hepatitis B Surface Antigen Negative (Negative)
[2024-10-17 22:10] LABS: Neisseria gonorrhoeae, NAA Negative (Negative)
== END 2024-10-16 23:59 | disposition home or self-care (01) ==
LOC: RT 15:29
PROVIDERS: Visit Provider Obstetrics & Gynecology
DX: Z34.01 Encounter for supervision of normal first pregnancy, first trimester (principal); R42 Dizziness and giddiness; R00.0 Tachycardia, unspecified
CPT/HCPCS: 36415; 85025; 86592; 86762; 86850; 87340; 87491; 87591; 93270

== ENCOUNTER 2024-10-22 14:56 | Outpatient (CLI) | payer OTHER, SELFPAY ==
--- NOTE | 2024-10-22 14:58 | CA_ITS ---
APPROVED REPORT EXAM: Comprehensive 2D, Doppler, and color-flow Echocardiogram Fudger: Angela Aponte RDCS Ht: 5 ft 6 in Wt: 248lbs BSA: 2.19 BP: 117/39 mmHg Indications: FATIGUE,DIZZINESS,TACHYCARDIA, 7 WK M-Mode Dimensions RVDd 2.07 cm (0.9-2.6) LA Diam 3.42 cm (1.9-4.0) LVDd 5.07 cm (3.5-5.7) LVDs 3.51 cm (3.5-5.7) IVSd 0.85 cm (0.6-1.1) PWd 0.78 cm (0.6-1.1) EF (Teich) 58.10% FS 30.80% EDV (Teich) 122.10 mL ESV (Teich) 51.20 mL LV Diastology E Decel Time 223 (160-240 msec) E/A Ratio 1.8 Mitral Valve MV E Max Basilio. 98.0 (40-130 cm/s) MV A Velocity 54.0 (40-130 cm/s) E/A Ratio 1.82 MV PHT 65.0 ms Left Ventricle The left ventricle is normal size. The left ventricular systolic function is normal. The left ventricular ejection fraction is within the normal range. There is normal left ventricular wall thickness. There is normal LV segmental wall motion. The left ventricular diastolic function is normal. LVEF is 55%. Right Ventricle The right ventricle is normal size. The right ventricular systolic function is normal. Atria The left atrium size is normal. The right atrium size is normal. There is no Doppler evidence of interatrial shunt. Aortic Valve The aortic valve opens well. The aortic valve is trileaflet. There is no aortic valvular stenosis. No aortic regurgitation is present. Mitral Valve The mitral valve is normal in structure. No evidence of mitral valve stenosis. There is no mitral valve regurgitation noted. Tricuspid Valve Tricuspid valve is grossly normal in structure and function. Trace mitral regurgitation. There is insufficient TR jet to estimate RVSP. Pulmonic Valve The pulmonary valve is normal in structure. Trace pulmonic regurgitation. Great Vessels The aortic root is normal in size. IVC is normal in size and collapses >50% with inspiration. Pericardium There is no pericardial effusion. Other Information Study Quality: Adequate Conclusion Normal biventricular systolic function. No significant valvular stenosis or regurgitation. Electronically signed by : Evelyn Oscar MD 10/28/2024 20:18:24
== END 2024-10-22 23:59 | disposition home or self-care (01) ==
LOC: RT 14:56
PROVIDERS: Visit Provider Nurse Practitioner
DX: R42 Dizziness and giddiness (principal); R00.0 Tachycardia, unspecified
CPT/HCPCS: 93306

== ENCOUNTER 2024-10-26 16:34 | Outpatient (CLI) | payer OTHER, SELFPAY ==
[2024-11-04 10:16] LABS: Miscellaneous Test SCANNED IMAGE
== END 2024-10-26 23:59 | disposition home or self-care (01) ==
LOC: LAB 16:35
PROVIDERS: Visit Provider Obstetrics & Gynecology
DX: Z36.9 Encounter for antenatal screening, unspecified (principal)
CPT/HCPCS: 36415; 81291

== ENCOUNTER 2024-12-05 10:08 | Outpatient (CLI) | payer OTHER, SELFPAY ==
[2024-12-05] MEDS: LACTATED RINGERS 1000ML 1,000 ML 999 ML IV (10:30)
[2024-12-05 10:31] VITALS: BMI 41.3
[2024-12-05 10:37] VITALS: BP 94/54; PULSE 76; RESP 16; O2SAT 98; BMI 41.1
[2024-12-05 10:50] LABS: Basophils % 0.1 % (0.1-2.0); Eosinophils % 0.3 % (0.1-12.0); Hematocrit 34.6 % (37.0-47.0); Hemoglobin 11.8 g/dL (12.2-16.2); Immature Granulocytes # 0.01 10^3uL; Immature Granulocytes % 0.1 %; Lymphocytes # 1.3 K/mm3 (0.7-4.5); Mean Corpuscular HGB Conc 34.1 g/dL (31.8-35.4); Mean Corpuscular Hemoglobin 30.2 pg (27.0-31.2); Mean Corpuscular Volume 88.5 fl (81-99); Mean Platelet Volume 10.8 fl (7.4-10.4); Monocytes # 0.4 K/mm3 (0.1-1.0); Monocytes % 6.1 % (1.7-9.3); Neutrophils # 5.4 K/mm3 (1.8-7.8); Neutrophils % 75.4 % (37.0-80.0); Nucleated Red Blood Cells # 0 10^3/uL; Nucleated Red Blood Cells % 0 %; Platelet Count 214 K/mm3 (142-424); Red Blood Count 3.91 M/mm3 (4.20-5.40); Red Cell Distribution Width 13.3 % (11.5-17.5); Red Cell Distribution Width-SD 43.2 fL; White Blood Count 7.2 K/mm3 (4.8-10.8)
[2024-12-05 11:07] LABS: Alanine Aminotransferase 23 U/L (12-78); Albumin/Globulin Ratio 1.3 (1.1-1.8); Alkaline Phosphatase 41 U/L (38-126); Anion Gap 8.9 mEq/L (5-15); Aspartate Amino Transferase 20 U/L (14-36); Bilirubin,Total 0.3 mg/dl (0.2-1.3); Blood Urea Nitrogen 12 mg/dl (7-17); Calcium 9.2 mg/dl (8.4-10.2); Carbon Dioxide 24 mmol/L (22.0-30.0); Chloride 106 mmol/L (98-107); Creatinine Clearance Estimated 130 mL/min (50-200); Estimated Glomerular Filt Rate 118 ml/min (>60); GFR (African American) 143 ML/MIN (>60); Glucose 88 mg/dl (74-100); Potassium 3.9 mmoL/L (3.5-5.1); Sodium 135 mmol/L (136-145)
== END 2024-12-05 11:32 | disposition home or self-care (01) ==
LOC: OBOUT 10:09 → OB 10:10
PROVIDERS: Visit Provider Obstetrics & Gynecology
DX: O26.891 Other specified pregnancy related conditions, first trimester (principal); R51.9 Headache, unspecified; Z3A.13 13 weeks gestation of pregnancy
CPT/HCPCS: 36415; 80053; 85025; 96360; J7120

== ENCOUNTER 2025-01-03 10:51 | Outpatient (CLI) | payer OTHER, SELFPAY ==
[2025-01-03 10:58] VITALS: BMI 41.9
--- OUTSIDE RECORDS SUMMARY | 2025-01-03 10:58 | XMS_ITS | Encounter Summary ---
Author Organization Healthcare Address [address] [place] [address] Care Team Providers Care Roofing Subcontractor Name Role Phone Miranda Pa APRN Primary Care Provider + Encounter Details Date Type Department Care Team (Late st Contact Info) Description 01/22/2021 Community [facility] [address] [place] [phone] Miranda Pa APRN [address] [facility] [place] [address] Migraine without status migrainosus, not intractable, unspecified migraine type (Primary Dx) Social History Tobacco Use Types Packs/Day Years Used Date Smoking Tobacco: Never Alcohol Use Standard Drinks/Week Comments Not Currently 0 (1 standard drink = 0.6 oz pure alcohol) Alcoholic Drinks/day: Recently quit alcohol use Comments Unknown Sex and Gender Information Value Date Recorded Sex Assigned at Not on file Legal Sex Female 8:56 PM EDT Gender Identity Not on file Sexual Orientation Not on file documented as of this encounter Plan of Treatment Not on file documented as of this encounter Visit Diagnoses Diagnosis Migraine without status migrainosus, not intractable, unspecified migraine type- Primary documented in this encounter Care Teams Roofing Subcontractor Relationship Specialty Start Date End Date Miranda Pa APRN [address] [facility] [place] [address] PCP - General 11/28/20 documented as of this encounter
--- OUTSIDE RECORDS SUMMARY | 2025-01-03 10:58 | XMS_ITS | Data Portability ---
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 Lab cytology report, thin prep, smear or scraping, cervical or vaginal 2022 023 TEA [facility], [address], [place], [address], 3 12:13:17 TSH + free T4, serum 2022 023 TEA [facility], [address], [place], [address], 3 10:36:51 testosteron e, free + total, serum 2022 023 TEA [facility], [address], [place], [address], 3 10:36:52 HbA1c (hemoglobin A1c), blood 2022 023 LAUREL [facility], [address], [place], [address], 3 10:36:55 test, urine [address] Animal Laboratory Technician, [address] [place] [address] , [place], [address], 3 16:31:01 vaginal pathogens panel, AVIVA+probe, vaginal fluid 2022 023 LAUREL [facility], [address], [place], [address], 3 10:36:50 HIV 1 + 2, meaningful use set 2022 023 LAUREL [facility], [address], [place], [address], 3 10:36:52 RPR (rapid plasma reagin), serum 2022 023 TEA [facility], [address], [place], [address], 3 10:36:53 HBsAg (hepatitis B surface Ag), EIA, serum 2022 023 TEA [facility], [address], [place], [address], 3 10:36:56 Hepatitis C IgG Ab, qual, serum 2022 023 LAUREL [facility], [address], [place], [address], 3 10:36:54 cytology report, thin prep, smear or scraping, cervical or vaginal 2022 023 TEA [facility], [address], [place], [address], 3 13:07:39 CBC w/ auto diff 2021 022 [facility]( Lab), [address] [place] [address] [place], [address], 2 12:15:31 CMP, serum or plasma 2021 [facility]( Lab), [address] [place] [address] [place], [address], 2 16:27:52 urinalysis, reflex culture 2021 [facility]( Lab), [address] [place] [address] [place], [address], 2 18:13:34 Pap smear tests - FPAR 2.0 set 2021 022 TEA [facility], [address], [place], [address], 2 13:09:33 test, urine 2021 022 [email or web address] [facility] Techn[facility], [address] [place] [address] , [place], [address], 2 14:59:48 culture, urine 2021 022 TEA [facility], [address], [place], [address], 2 22:07:17 urinalysis, dipstick 2021 022 [email or web address] [facility] Animal Laboratory Technician, [address] [place] [address] , [place], [address], 09:23:09 Referral gynecologic surgery referral - lap b/l salpingecto my 2021 022 [email or web address] Not available 12:43:16 Procedures None recorded. Surgeries None recorded. Imaging None recorded. Medication Orders Prelief 65 mg tablet 2021 022 [email or web address] [facility] [address], [place], [address], 13:08:44 Patient TargetsNo targets recorded. Patient Instructions Encounter Date Encounter Id Patient Instructions Last Modified By Organization Details Last Modified Time 09/24/2021 [id number] Increase fluids Avoid soda and tea Will send urine for culture and call with results. If urine culture is positive, will call in an antibiotic. [email or web address] Not available 09/24/2021 10:24:55 01/12/2022 [id number] Interstitial cystitis questionnaire given and score positive for IC. Discussed IC care guide as well as first line treatments including dietary changes and OTC prelief. Rx prelief given Pap obtained Will sign sterilization paperwork and RTO for preop for lap b/l salpingectomy. 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 Will family service counselor on PNV at next visit -Depression screening: PHQ 9 negative -Family Hx: Mother with hx of cervical cancer and leiomyoma Vaginal pain/pelvic pain/dysuapreunia: will get ER records. Pt reports enlarged mesentry. Will get CT scan results. Return for pelvic US Katy gaston excision of sebaceous cysts from her vulva. Will perform this as well upon return [email or web address] Not available 07/29/2022 13:27:23 01/05/2023 [id number] Given post-coita l bleeding and hx of cervical dysplasia, pap collected, but also recommended colpo and she agrees. Given AUB, check labs and return for US. Also performing for pelvic pain Full STI testing performed today [email or web address] Not available 01/09/2023 16:32:35 Reason for Referral Gynecologic Surgery Referral for Sterilization requested lap b/l salpingectomy Referring Physician: Alis Mays, PATCH DRILLER, Encounter Date: 01/12/2022 Results Created Date Observation Date Name Description Value Unit Range Abnormal Flag Note LastModifiedBy Organization Detail LastModifiedTime 09/10/19 22 09/10/2021 rapid strep group A, throa t Strep negati ve Not Available [address] , [place], [address], 09/10/2021 15:09:41 09/25/19 22 09/25/2021 URINE CULTU REEVIN NE urine culture, routine Final report Not Available [facility] ([facility]) [address] [place], [address], 09/25/2021 22:07:17 09/25/19 22 09/25/2021 URINE CULTU REEVIN result 1 No growth Not Available [facility] ([facility]) [address] [place], [address], 09/25/2021 22:07:17 09/25/19 22 09/24/2021 urina lysis , dipst ick Leukocytes Modera te Not Available [facility] Animal Laboratory Technician [address] [place] [address] , [place], [address], 09/24/2021 09:11:16 09/25/19 22 09/24/2021 urina lysis , dipst ick Nitrite negati ve Not Available [facility] Laboratory Technician [address] [place] [address] , [place], [address], 09/24/2021 09:11:16 09/25/19 22 09/24/2021 urina lysis , dipst ick Urobilinogen .2 Not Available [facility] Animal Laboratory Technician [address] [place] [address] , [place], [address], 09/24/2021 09:11:16 09/25/19 22 09/24/2021 urina lysis , dipst ick Protein Negati ve Not Available [facility] [address] [place] [address] , [place], [address], 09/24/2021 09:11:16 09/25/19 22 09/24/2021 urina lysis , dipst ick pH 6.5 Not Available [facility]/[address] , [place], [address], 09/24/2021 09:11:16 09/25/19 22 09/24/2021 urina lysis , dipst ick Blood Modera te Not Available [facility] [address] [place] [address] , [place], [address], 09/24/2021 09:11:16 09/25/19 22 09/24/2021 urina lysis , dipst ick Specific Eolia 1.030 Not Available [facility] Animal Laboratory Technician [address] [place] [address] , [place], [address], 09/24/2021 09:11:16 09/25/19 22 09/24/2021 urina lysis , dipst ick Ketone Negati ve Not Available [facility]/[address] , [place], [address], 09/24/2021 09:11:16 09/25/19 22 09/24/2021 urina lysis , dipst ick Bilirubin Negati ve Not Available [facility] [address] [place] [address] , [place], [address], 09/24/2021 09:11:16 09/25/19 22 09/24/2021 urina lysis , dipst ick Glucose Negati ve Not Available [facility] Laboratory Technician [address] [place] [address] , [place], [address], 09/24/2021 09:11:16 09/25/19 22 09/24/2021 urina lysis , dipst ick Appearance Slight ly Cloudy Not Available [facility] Laboratory Technician [address] [place] [address] , [place], [address], 09/24/2021 09:11:16 09/25/19 22 09/24/2021 urina lysis , dipst ick Color Yellow Not Available [facility] Laboratory Technician [address] [place] [address] , [place], [address], 09/24/2021 09:11:16 01/13/20 22 01/14/2022 IGP,R FX APTIM A HPV ALL PTH diagnosis: Commen t NEGAT BALBINA FOR INTRA EPITH ELIAL LESIO N OR MALLISBETH SMITH . PREDO RANDA CE OF [place] BACIL LI CONSI STENT WITH SHIFT IN VAGIN AL ARSLAN IS PRESE NT. Not Available [facility] ([facility]) [address] [place], [address], 01/14/2022 13:09:33 01/13/20 22 01/14/2022 IGP,R FX APTIM A HPV ALL PTH specimen adequacy: Commen t Satis facto ry for evalu ation . Endoc ervic al and/o r squam ous metap lasti c cells (endo cervi kim compo nent) are prese nt. Not Available [facility] ([facility]) [address] [facility], [place], [address], 01/14/2022 13:09:33 01/13/20 22 01/14/2022 IGP,R FX APTIM A HPV ALL PTH clinician provided ICD10: Commberry t R87.6 19 Not Available [facility] ([facility]) [address] [place], [address], 01/14/2022 13:09:33 01/13/20 22 01/14/2022 IGP,R FX APTIM A HPV ALL PTH performed by: Alejandro Huston Not Available [facility] ([facility]) [address] [place], [address], 01/14/2022 13:09:33 01/13/20 22 01/14/2022 IGP,R FX APTIM A HPV ALL PTH . . Not Available [facility] ([facility]) [address] [place], [address], 01/14/2022 13:09:33 01/13/20 22 01/14/2022 IGP,R FX APTIM A HPV ALL PTH note: Monae aldana The Pap smear is a scree yani test desig vahe to aid in the detec tion of shania ligna nt and malig nant condi tions of the uteri ne cervi x. It is not a diagn ostic proce dure and shoul d not be used as the sole means of detec ting cervi kim cance r. Both false -posi tive and false -nega tive repor ts do occur . Not Available [facility] ([facility]) [address] [place], [address], 01/14/2022 13:09:33 01/13/20 22 01/14/2022 IGP,R FX APTIM A HPV ALL PTH test methodology: Monae aldana This liqui d based ThinP rep(R ) pap test was scree vahe with the use of an image guide anatoliy gill. Not Available [facility] ([facility]) [address] [place], [address], 01/14/2022 13:09:33 01/13/20 22 01/14/2022 IGP,R FX APTIM A HPV ALL PTH . Commen t The HPV DNA refle x crite matthias were not met with this speci men resul t there fore, no HPV testi ng was perfo rmed. Not Available [facility] ([facility]) [address] [facility], [place], [address], 01/14/2022 13:09:33 01/13/20 22 01/12/2022 pregn arminda test, urine HCG negati ve Not Available [facility] Animal Laboratory Technician [address] [facility] , [place], [address], 01/12/2022 14:37:35 02/10/20 22 02/09/2022 CBC W/AUT O DIFFE RENTI AL note See Note Order ing Provi tata: Yolanda Ch (Appl eton) Not Available [address] , [place], [address], 02/09/2022 14:27:37 02/10/20 22 02/09/2022 CBC W/AUT O DIFFE RENTI AL white blood cell 8.4 10e3/ uL 4.5-13 .0 normal Not Available [address] Nhea Martinez, [place], [address], 02/09/2022 14:27:37 02/10/20 22 02/09/2022 CBC W/AUT O DIFFE RENTI AL red blood cell 4.27 10e6/ uL 3.80-5 .10 normal Not Available [address] , [place], [address], 02/09/2022 14:27:37 02/10/20 22 02/09/2022 CBC W/AUT O DIFFE RENTI AL hemoglobin 12.8 g/dL 11.5-1 5.3 normal Not Available [address] , [place], [address], 02/09/2022 14:27:37 02/10/20 22 02/09/2022 CBC W/AUT O DIFFE RENTI AL hematocrit 38.6 % 34.0-4 6.0 normal Not Available [address] Neha Martinez, [place], [address], 02/09/2022 14:27:37 02/10/20 22 02/09/2022 CBC W/AUT O DIFFE RENTI AL mean cell volume 90 fL 78.0-9 8.0 normal Not Available [address] Neha Martinez, [place], [address], 02/09/2022 14:27:37 02/10/20 22 02/09/2022 CBC W/AUT O DIFFE RENTI AL mean cell HGB 30.0 pg 25.0-3 5.0 normal Not Available [address] Neha Martinez, [place], [address], 02/09/2022 14:27:37 02/10/20 22 02/09/2022 CBC W/AUT O DIFFE RENTI AL mean cell HGB concentratio n 33.2 g/dL 31.0-3 6.0 normal Not Available [place] [address], [place], [address], 02/09/2022 14:27:37 02/10/20 22 02/09/2022 CBC W/AUT O DIFFE RENTI AL red cell distribution width 13.3 % 11.0-1 5.0 normal Not Available [address] Neha Martinez, [place], [address], 02/09/2022 14:27:37 02/10/20 22 02/09/2022 CBC W/AUT O DIFFE RENTI AL platelet count 223 10e3/ uL 150-40 0 normal Not Available [address] Neha Martinez, [place], [address], 02/09/2022 14:27:37 07/26/20 22 02/09/2022 CBC W/AUT O DIFFE RENTI AL immature granulocyte % 0 0-1 normal Not Available [address] , [place], [address], 02/09/2022 14:27:37 02/10/20 22 02/09/2022 CBC W/AUT O DIFFE RENTI AL neutrophil % 71 % 35-75 normal Not Available [address] Neha Martinez, [place], [address], 02/09/2022 14:27:37 02/10/20 22 02/09/2022 CBC W/AUT O DIFFE RENTI AL lymphocyte % 23 % 10-50 normal Not Available [address] , [place], [address], 02/09/2022 14:27:37 02/10/20 22 02/09/2022 CBC W/AUT O DIFFE RENTI AL monocyte % 6 % 0-15 normal Not Available [address] , [place], [address], 02/09/2022 14:27:37 02/10/20 22 02/09/2022 CBC W/AUT O DIFFE RENTI AL eosinophil % 0 % 0-5 normal Not Available [address] Neha Martinez, [place], [address], 02/09/2022 14:27:37 02/10/20 22 02/09/2022 CBC W/AUT O DIFFE RENTI AL basophil % 0 % 0-5 normal Not Available [address] , [place], [address], 02/09/2022 14:27:37 02/10/20 22 02/09/2022 CBC W/AUT O DIFFE RENTI AL immature granulocyte # 0.02 x1000 /uL 0-0.05 normal Not Available [address] Neha Martinez, [place], [address], 02/09/2022 14:27:37 02/10/20 22 02/09/2022 CBC W/AUT O DIFFE RENTI AL neutrophil # 5.90 x1000 /uL 1.50-8 .00 normal Not Available [address] Neha Martinez, [place], [address], 02/09/2022 14:27:37 02/10/20 22 02/09/2022 CBC W/AUT O DIFFE RENTI AL lymphocyte # 1.92 x1000 /uL 1.20-5 .20 normal Not Available [address] , [place], [address], 02/09/2022 14:27:37 02/10/20 22 02/09/2022 CBC W/AUT O DIFFE RENTI AL monocyte # 0.49 x1000 /uL 0.40-0 .90 normal Not Available [address] Neha Martinez, [place], [address], 02/09/2022 14:27:37 02/10/20 22 02/09/2022 CBC W/AUT O DIFFE RENTI AL eosinophil # 0.02 x1000 /uL 0.00-0 .50 normal Not Available [address] Neha Martinez, [place], [address], 02/09/2022 14:27:37 02/10/20 22 02/09/2022 CBC W/AUT O DIFFE RENTI AL basophil # 0.02 x1000 /uL 0.00-0 .30 normal Not Available [address] Neha Martinez, [place], [address], 02/09/2022 14:27:37 02/10/20 22 02/09/2022 CBC W/AUT O DIFFE RENTI AL NRBC automated 0.0 /100_ WBC Not Available [address] , [place], [address], 02/09/2022 14:27:37 02/10/20 22 02/09/2022 CBC W/AUT O DIFFE SIMÓN VOGT performing lab see note - [facility] [address] [facility] [address] Not Available [address] , [place], [address], 02/09/2022 14:27:37 02/10/20 22 02/09/2022 COMP METAB OLIC PANEL note See Note Order ing Provi tata: Yolanda Ch (Appl eton) Not Available [address] , [place], [address], 02/09/2022 14:41:10 02/10/20 22 02/09/2022 COMP METAB OLIC PANEL sodium 138 mmol/ L 136-14 5 normal Not Available [address] , [place], [address], 02/09/2022 14:41:10 02/10/20 22 02/09/2022 COMP METAB OLIC PANEL potassium 4.1 mmol/ L 3.5-5. 1 normal Not Available [address] , [place], [address], 02/09/2022 14:41:10 02/10/20 22 02/09/2022 COMP METAB OLIC PANEL chloride 103 mmol/ L 98-107 normal Not Available [address] , [place], [address], 02/09/2022 14:41:10 02/10/20 22 02/09/2022 COMP METAB OLIC PANEL carbon dioxide 26 mmol/ L 24-33 normal Not Available [address] , [place], [address], 02/09/2022 14:41:10 02/10/20 22 02/09/2022 COMP METAB OLIC PANEL anion gap 13.1 mmol/ L 10-20 normal Not Available [address] Neha Martinez, [place], [address], 02/09/2022 14:41:10 02/10/20 22 02/09/2022 COMP METAB OLIC PANEL glucose 86 mg/dL 70-99 normal Not Available [address] Neha Martinez, [place], [address], 02/09/2022 14:41:10 02/10/20 22 02/09/2022 COMP METAB OLIC PANEL blood urea nitrogen 12 mg/dL 7-18 normal Not Available [address] , [place], [address], 02/09/2022 14:41:10 02/10/20 22 02/09/2022 COMP METAB OLIC PANEL creatinine 1.06 mg/dL 0.55-1 .02 high Not Available [address] Neha Martinez, [place], [address], 02/09/2022 14:41:10 02/10/20 22 02/09/2022 COMP METAB OLIC PANEL BUN/creatini ne ratio 11 12-20 low Not Available [address] Neha Martinez, [place], [address], 02/09/2022 14:41:10 02/10/20 22 02/09/2022 COMP METAB OLIC PANEL total protein 7.8 g/dL 6.4-8. 2 normal Not Available [address] [place], [address], 02/09/2022 14:41:10 02/10/20 22 02/09/2022 COMP METAB OLIC PANEL albumin 4.0 g/dL 3.4-5. 0 normal Not Available [address] [place], [address], 02/09/2022 14:41:10 02/10/20 22 02/09/2022 COMP METAB OLIC PANEL globulin 3.8 g/dL 1.5-4. 0 normal Not Available [address] , [place], [address], 02/09/2022 14:41:10 02/10/20 22 02/09/2022 COMP METAB OLIC PANEL albumin/glob ulin ratio 1.1 0.5-2. 0 normal Not Available [address] , [place], [address], 02/09/2022 14:41:10 02/10/20 22 02/09/2022 COMP METAB OLIC PANEL calcium 9.4 mg/dL 8.5-10 .1 normal Not Available [address] , [place], [address], 02/09/2022 14:41:10 02/10/20 22 02/09/2022 COMP METAB OLIC PANEL osmolality serum calculated 274 mOsm/ kg 272-28 8 normal Not Available [address] Neha Martinez, [place], [address], 02/09/2022 14:41:10 02/10/20 22 02/09/2022 COMP METAB OLIC PANEL glom filtr rate (estimated) > 60 mL/mi n >60 normal Not Available [address] , [place], [address], 02/09/2022 14:41:10 02/10/20 22 02/09/2022 COMP METAB OLIC PANEL GFR est (if -amer ican) > 60 mL/mi n >60 normal Not Available [address] [place], [address], 02/09/2022 14:41:10 02/10/20 22 02/09/2022 COMP METAB OLIC PANEL bilirubin total 0.4 mg/dL 0.2-1. 0 normal Use of this assay is not recom maxim d for patie nts under going treat ment with Eltro mbopa g due to the poten tial for false ly eleva idris resul ts. Not Available [address] , [place], [address], 02/09/2022 14:41:10 02/10/20 22 02/09/2022 COMP METAB OLIC PANEL SGOT/AST 12 U/L 15-37 low Not Available [address] , [place], [address], 02/09/2022 14:41:10 02/10/20 22 02/09/2022 COMP METAB OLIC PANEL SGPT/ALT 18 U/L 14-59 normal Not Available [address] , [place], [address], 02/09/2022 14:41:10 02/10/20 22 02/09/2022 COMP METAB OLIC PANEL alkaline phosphatase total 35 U/L 46-116 low Not Available [address] , [place], [address], 02/09/2022 14:41:10 02/10/20 22 02/09/2022 COMP METAB OLIC PANEL performing lab see note - [facility] [address] [facility] [id number] Not Available [address] [place], [address], 02/09/2022 14:41:10 02/10/20 22 02/09/2022 URINA LYSIS COMPL ETE note See Note Order ing Provi tata: Yolanda Ch (Appl eton) Not Available [address] , [place], [address], 02/09/2022 14:42:16 02/10/20 22 02/09/2022 URINA LYSIS COMPL ETE UA method of collection CLEAN CATCH Not Available [address] , [place], [address], 02/09/2022 14:42:16 02/10/20 22 02/09/2022 URINA LYSIS COMPL ETE UA color LT YELLOW yellow Not Available [address] , [place], [address], 02/09/2022 14:42:16 02/10/20 22 02/09/2022 URINA LYSIS COMPL ETE UA appearance SL.MICHELE UDY clear Not Available [address] [place], [address], 02/09/2022 14:42:16 02/10/20 22 02/09/2022 URINA LYSIS COMPL ETE UA glucose dipstick NEGATI VE negati ve Not Available [address] [place], [address], 02/09/2022 14:42:16 02/10/20 22 02/09/2022 URINA LYSIS COMPL ETE UA bilirubin dipstick NEGATI VE negati ve Not Available [address] [place], [address], 02/09/2022 14:42:16 02/10/20 22 02/09/2022 URINA LYSIS COMPL ETE UA ketone dipstick NEGATI VE negati ve Not Available [address] [place], [address], 02/09/2022 14:42:16 02/10/20 22 02/09/2022 URINA LYSIS COMPL ETE UA specific gravity 1.010 1.005- 1.030 normal Not Available [address] [place], [address], 02/09/2022 14:42:16 02/10/20 22 02/09/2022 URINA LYSIS COMPL ETE UA blood dipstick 3+ negati ve abnormal Not Available [address] , [place], [address], 02/09/2022 14:42:16 02/10/20 22 02/09/2022 URINA LYSIS COMPL ETE UA pH dipstick 7.0 5.0-9. 0 normal Not Available [address] [place], [address], 02/09/2022 14:42:16 02/10/20 22 02/09/2022 URINA LYSIS COMPL ETE UA protein dipstick NEGATI VE negati ve Not Available [address] , [place], [address], 02/09/2022 14:42:16 02/10/20 22 02/09/2022 URINA LYSIS COMPL ETE UA urobilinogen dipstick NEGATI VE mg/dL <1 Not Available [address] Neha Martinez, [place], [address], 02/09/2022 14:42:16 02/10/20 22 02/09/2022 URINA LYSIS COMPL ETE UA nitrite dipstick NEGATI VE negati ve Not Available [address] Neha Martinez, [place], [address], 02/09/2022 14:42:16 02/10/20 22 02/09/2022 URINA LYSIS COMPL ETE UA leukocyte esterase dipstick 2+ negati ve abnormal Not Available [address] [place], [address], 02/09/2022 14:42:16 02/10/20 22 02/09/2022 URINA LYSIS COMPL ETE UA RBC 0-5 RBC/h pf none seen abnormal Not Available [address] , [place], [address], 02/09/2022 14:42:16 02/10/20 22 02/09/2022 URINA LYSIS COMPL ETE UA WBC 0-5 WBC/h pf 0-5 Not Available [address] , [place], [address], 02/09/2022 14:42:16 02/10/20 22 02/09/2022 URINA LYSIS COMPL ETE UA epithelial cells 21-30 SQUAMO US epi/h pf 0-5 abnormal Not Available [address] , [place], [address], 02/09/2022 14:42:16 02/10/20 22 02/09/2022 URINA LYSIS COMPL ETE UA bacteria 1+ none seen abnormal Not Available [address] , [place], [address], 02/09/2022 14:42:16 02/10/20 22 02/09/2022 URINA LYSIS COMPL ETE UA mucus NONE SEEN none seen Not Available [address] , [place], [address], 02/09/2022 14:42:16 02/10/20 22 02/09/2022 URINA LYSIS COMPL ETE UA amorphous sediment NONE SEEN none seen Not Available [address] , [place], [address], 02/09/2022 14:42:16 02/10/20 22 02/09/2022 URINA LYSIS COMPL ETE comment 1 >20 EPI'S No Cultu re Perfo rmed. Speci men faile d Refle x Cultu re Crite matthias. Not Available [address] , [place], [address], 02/09/2022 14:42:16 02/10/20 22 02/09/2022 URINA LYSIS COMPL ETE performing lab see [facility] [address] [place] [address] Not Available [place] [id number] , [place], [address], 02/09/2022 14:42:16 07/20/19 23 07/23/2022 IGP, APTIM A HPV, RFX 16/18 ,45 HPV aptima Negati ve negati ve This nucle ic acid ampli ficat ion test detec ts fourt een high- risk HPV types (16,1 8,31, 33,35 ,39,4 5,51, 52,56 ,58,5 9,66, 68) witho ut diffe renti ation . Not Available [facility] (Lab) [id number] [address], [place], [address], 07/25/2022 13:07:39 07/20/19 23 07/25/2022 IGP, APTIM A HPV, RFX 16/18 ,45 diagnosis: Commen t NEGAT [place] FOR INTRA EPITH ELIAL LESIO N OR MAGGIE SMITH . PREDO MINAN CE OF [place] BACIL LI CONSI STENT WITH SHIFT IN VAGIN AL ARSLAN IS PRESE NT. Not Available [facility] [id number] [facility] [address], [place], [address], 07/25/2022 13:07:39 07/20/19 23 07/25/2022 IGP, APTIM A HPV, RFX 16/18 ,45 specimen adequacy: Commen t Satis facto ry for evalu ation . No endoc ervic al compo nent is ident ified . Not Available [facility] (Lab) [id number], [place], [address], 07/25/2022 13:07:39 07/20/19 23 07/25/2022 IGP, APTIM A HPV, RFX 16/18 ,45 clinician provided ICD10: Monae aldana Z12.4 Not Available [facility] (Lab) [id number], [place], [address], 07/25/2022 13:07:39 07/20/19 23 07/25/2022 IGP, APTIM A HPV, RFX 16/18 ,45 performed by: Monae Garcia Sr, Cytot stefany aldana (ASCP ) Not Available [facility] [facility]) [id number], [place], [address], 07/25/2022 13:07:39 07/20/19 23 07/25/2022 IGP, APTIM A HPV, RFX 16/18 ,45 . . Not Available [facility] (Lab) [address] [address], [place], [address], 07/25/2022 13:07:39 07/20/19 23 07/25/2022 IGP, APTIM A HPV, RFX 16/18 ,45 note: Monae aldana The Pap smear is a scree yani test desig vahe to aid in the detec tion of shania ligna nt and malig nant condi tions of the uteri ne cervi x. It is not a diagn ostic proce dure and shoul d not be used as the sole means of detec ting cervi kim cance r. Both false -posi tive and false -nega tive repor ts do occur . Not Available [facility] (Lab) [address], [place], [address], 07/25/2022 13:07:39 07/20/19 23 07/25/2022 IGP, APTIM A HPV, RFX 16/18 ,45 test methodology: Monae aldana This liqui d based ThinP rep(R ) pap test was scree vahe with the use of an image guide anatoliy systmagda m. Not Available [facility] (Lab) [id number], [place], [address], 07/25/2022 13:07:39 07/20/19 23 07/25/2022 IGP, APTIM A HPV, RFX 16/18 ,45 HPV genotype reflex Commen t Crite matthias not met, HPV Genot ype not perfo rmed. Not Available [facility] ([facility]) [address], [place], [address], 07/25/2022 13:07:39 01/06/20 23 01/06/2023 NUSWA B VAGIN ITIS PLUS (VG+) atopobium vaginae Low - 0 score Not Available [facility]) [address] [place], [address], 01/11/2023 10:36:49 01/06/20 23 01/06/2023 NUSWA B VAGIN ITIS PLUS (VG+) bvab 2 Modera te - 1 score Not Available [facility] ([facility]) [address] [facility], [place], [address], 01/11/2023 10:36:49 01/06/20 23 01/06/2023 NUSWA B VAGIN ITIS PLUS (VG+) megasphaera 1 Low - 0 score Calcu late total score by dong agosto the 3 indiv idual bacte rial vagin osis (BV) marke r score s toget her. Total score is inter prete d as follo ws: Total score 0-1: Indic ates the absen ce of BV. Total score 2: Indet ermin ate for BV. Addit ional clini kim data shoul d be evalu ated to estab stephany a diagn osis. Total score 3-6: Indic ates the prese nce of BV. This test was devel oped and its perfo rmanc e yael cteri stics deter mined by [facility]. It has not been clear ed or appro jason by the Food and Drug Admin istra tion. Not Available [facility] ([facility]) [address] [place], [address], 01/11/2023 10:36:49 01/06/20 23 01/06/2023 NUSWA B VAGIN ITIS PLUS (VG+) bisi albicans, AVIVA Negati ve negati ve Not Available [facility] ([facility]) [address] [facility], [place], [address], 01/11/2023 10:36:49 01/06/20 23 01/06/2023 NUSWA B VAGIN ITIS PLUS (VG+) bisi glabrata, AVIVA Negati ve negati ve Not Available [facility]) [address] [facility], [place], [address], 01/11/2023 10:36:49 01/06/20 23 01/06/2023 NUSWA B VAGIN ITIS PLUS (VG+) trich vag by AVIVA Negati ve negati ve Not Available [facility]) [address] [place], [address], 01/11/2023 10:36:49 01/06/20 23 01/06/2023 NUSWA B VAGIN ITIS PLUS (VG+) chlamydia trachomatis, AVIVA Negati ve negati ve Not Available [facility]) [address] [facility], [place], [address], 01/11/2023 10:36:49 01/06/20 23 01/06/2023 NUSWA B VAGIN ITIS PLUS (VG+) neisseria gonorrhoeae, AVIVA Negati ve negati ve Not Available [facility] ([facility]) [address] [place], [address], 01/11/2023 10:36:49 01/06/20 23 01/06/2023 TSH+F REE T4 TSH 0.400 uIU/m L 0.450- 4.500 below low normal Not Available [facility]) [address] [place], [address], 01/11/2023 10:36:51 01/06/20 23 01/06/2023 TSH+F REE T4 T4,free(dire ct) 1.17 NG/dL 0.82-1 .77 Not Available [facility]) [address] [place], [address], 01/11/2023 10:36:51 01/06/20 23 01/06/2023 TESTO STERO NE,FR EE AND TOTAL testosterone 46 NG/dL 13-71 Not Available [facility]) [address] [place], [address], 01/11/2023 10:36:51 01/06/2001/11/2023 TESTO STERO NE,FR EE AND TOTAL free testosterone (direct) 1.0 pg/mL 0.0-4. 2 Not Available [facility] ([facility]) [address] [facility], [place], [address], 01/11/2023 10:36:51 01/06/20 23 01/06/2023 HIV AB/P2 4 AG WITH REFLE X HIV Ab/P24 Ag screen Non Reacti ve non reacti ve HIV Negat balbina HIV-1 /HIV- 2 antib odies and HIV-1 p24 antig en were NOT detec idris. There is no labor atory evide nce of HIV infec tion. Not Available [facility]) [address] [facility], [place], [address], 01/11/2023 10:36:52 01/06/20 23 01/06/2023 RPR, RFX QN RPR/C ONFIR M TP RPR Non Reacti ve non reacti ve Not Available [facility]) [address] [place], [address], 01/11/2023 10:36:53 01/06/20 23 01/06/2023 HCV ANTIB KENIA hep C virus Ab Non Reacti ve non reacti ve HCV antib kenia alone does not diffe renti ate betwe en previ ously resol jason infec tion and activ e infec tion. Equiv ocal and React balbina HCV antib kenia resul ts shoul d be follo wed up with an HCV RNA test to suppo rt the diagn osis of activ e HCV infec tion. Not Available [facility] ([facility]) [address] [facility], [place], [address], 01/11/2023 10:36:54 01/06/20 23 01/06/2023 HEMOG LOBIN A1C hemoglobin A1C 4.7 % 4.8-5. 6 below low normal Predi abete s: 5.7 - 6.4 Diabe danilo: >6.4 Glyce morena contr ol for adult s with diabe danilo: <7.0 Not Available [facility] ([facility]) [address] [facility], [place], [address], 01/11/2023 10:36:55 01/06/2001/06/2023 HBSAG SCREE N HBsAg screen Negati ve negati ve Not Available [facility]) [address] [place], [address], 01/11/2023 10:36:56 01/07/20 23 01/06/2023 IGP, APTIM A HPV, RFX 16/18 ,45 HPV aptima Negati ve negati ve This nucle ic acid ampli ficat ion test detec ts fourt een high- risk HPV types (16,1 8,31, 33,35 ,39,4 5,51, 52,56 ,58,5 9,66, 68) witho ut diffe renti ation . Not Available [facility]) [address] [facility], [place], [address], 01/07/2023 12:13:17 01/07/20 23 01/07/2023 IGP, APTIM A HPV, RFX 16/18 ,45 diagnosis: Commen t NEGAT BALBINA FOR INTRA EPITH ELIAL LESIO N OR MALIG LUIS . SPECI MEN REPRO CESSE D FOR INTER PRETA TION USING GLACI AL ACETI C ACID (GAA) . Not Available [facility] ([facility]) [address] [place], [address], 01/07/2023 12:13:17 01/07/20 23 01/07/2023 IGP, APTIM A HPV, RFX 16/18 ,45 specimen adequacy: Monae aldana Satis facto ry for evalu ation . Endoc ervic al and/o r squam ous metap lasti c cells (endo cervi kim compo nent) are prese nt. Areas of parti ally obscu ring blood are prese nt. Not Available [facility] ([facility]) [address] [place], [address], 01/07/2023 12:13:17 01/07/20 23 01/07/2023 IGP, APTIM A HPV, RFX 16/18 ,45 clinician provided ICD10: Monae aldana Z11.3 N93.9 N93.0 Not Available [facility] ([facility]) [address] [place], [address], 01/07/2023 12:13:17 01/07/20 23 01/07/2023 IGP, APTIM A HPV, RFX 16/18 ,45 performed by: Monae jesus, Cytot stefany aldana (ASCP ) Not Available [facility]) [address] [place], [address], 01/07/2023 12:13:17 01/07/20 23 01/07/2023 IGP, APTIM A HPV, RFX 16/18 ,45 . . Not Available [facility] ([facility]) [address] [place], [address], 01/07/2023 12:13:17 01/07/20 23 01/07/2023 IGP, APTIM A HPV, RFX 16/18 ,45 note: Commen t The Pap smear is a scree yani test desig vahe to aid in the detec tion of shania ligna nt and malig nant condi tions of the uteri ne cervi x. It is not a diagn ostic proce dure and shoul d not be used as the sole means of detec ting cervi kim cance r. Both false -posi tive and false -nega tive repor ts do occur . Not Available [facility]) [address] [facility], [place], [address], 01/07/2023 12:13:17 01/07/20 23 01/07/2023 IGP, APTIM A HPV, RFX 16/18 ,45 test methodology: Monae t This liqui d based ThinP rep(R ) pap test was scree vahe with the use of an image guide anatoliy gill. Not Available [facility] ([facility]) [address] [facility], [place], [address], 01/07/2023 12:13:17 01/07/20 23 01/07/2023 IGP, APTIM A HPV, RFX 16/18 ,45 HPV genotype reflex Commen t Crite matthias not met, HPV Genot ype not perfo rmed. Not Available [facility]) [address] [place], [address], 01/07/2023 12:13:17 01/10/2001/09/2023 pregn arminda test, urine HCG negati ve Not Available [facility] [address] [facility] , [place], [address], 01/09/2023 16:30:54 10/17/19 22 10/16/2021 CT, abdom en + pelvi s, w/o contr ast No observ ation record ed. [email or web address] [facility] ([facility]) [address], [place], [address], 10/18/2021 23:08:20 05/07/20 22 11/21/2021 XR, chest , 2 view No observ ation record ed. [address], [place], [address], 11/25/2021 11:38:59 11/22/19 22 11/21/2021 imagi ng/di agnos tic resul t No observ ation record ed. [address], [place], [address], 11/25/2021 11:38:47 Result Notes None recorded. Problems Name Problem SNOMED Code Status Onset Date Resolution Date Notes Provider Name and Address Organization Details Recorded Time Anemia of pregnanc y 07781678 Completed 09/25/2019 Removal Reason: resolved Zainab Ch MD [address], [place], [address] , [place] - [facility] 17:43:51 Body mass index 30+ - obesity 903532934 Completed 201709/24/2021 Araseli Mills APRN [address], [place], [address] , [place] [facility] 10:23:33 Polycyst ic ovaries Active 2017 Amelie Mayfield null, [place] - [facility] 13:09:23 Oligomen orrhea 53902552 Completed 201708/16/2021 Zainab Ch MD [address], [place], [address] , [place] - [facility] 19:31:58 Abnormal uterine bleeding 53774358505 100 Completed 201708/16/2021 Zainab Ch MD [address], [place], [address] , [place] - [facility] 19:31:46 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 Active 2017 Amelie Mayfield null, [place] - [facility] 13:09:13 Pelvic floor dysfunct ion 341921483 Active 2018 Amelie Mayfield null, [place] - [facility] 13:09:18 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 a 584066912 Active 2019 Amelie Mayfield null[place] - [facility] 13:08:57 History of SARS-CoV -2 49138613895 1623446 Completed 202010/01/2020 Bibi Gordon null, [place] - [facility] 1 11:37:52 [facility] hyperten morelia 65470721 Active 2020 Amelie Mayfield null, [place] - [facility] 13:09:07 Migraine 03535869 Active 2020 Amelie Mayfield [place] - [facility] 13:09:17 Gastroes ophageal reflux disease 064889975 Active 2020 Amelie Mayfield null[place] - [facility] 13:09:11 Chronic constipa tion 552362818 Active 2020 Amelie Mayfield null[place] - [facility] 13:09:01 Dysuria 91952972 Active 2021 Amelie Mayfield null, [place] - [facility] 13:09:03 Body mass index 40+ - severely obese 342734508 Active 2021 Amelie Mayfield null[place] - [facility] 13:08:55 Morbid obesity 062682109 Active 2022 Ag Crouch RN [address], [place], [address] , [place] - [facility] 14:17:15 Problem Notes None recorded. Procedures Surgical History Date Name Laterality Status Provider Name and Address Organization Details Recorded Time 03/08/20 Colposcopy cancelled Amelie Mayfield [place] - [facility] 01/27/20 09:08:30 01/06/20 Date of Last Pap Smear completed Zainab Ch MD [address], [place], [address], [place] - [facility] 10/30/2023 19:57:44 01/27/20 Colposcopy completed Zainab Ch MD [address], [place], [address], [place] - [facility] 2021 20:07:34 01/27/20 21 Colposcopy completed Araseli Mills APRN [address], [place], [address], [place] - [facility] 09/24/2021 09:21:24 01/27/20 21 Colposcopy completed Fatuma Tsai [place] - [facility] 01/11/2022 10:21:09 07/18/19 21 Date of Last Colonoscopy completed Monica Vásquez [place] - [facility] 08/12/2021 14:09:13 09/11/19 20 LEEP Procedure completed Zainab Ch MD [address], [place], [address], [place] [facility] 09/11/2019 16:00:11 09/11/19 20 LEEP completed Fatuma Tsai [place] - [facility] 01/11/2022 10:19:42 07/27/19 20 Colposcopy completed Fatuma Tsai [place] [facility] 01/11/2022 10:20:00 extraction of wisdom tooth completed Amelie Mayfield [place] - [facility] 02/09/2022 13:11:24 Remove tonsils and adenoids completed Marlee Cass [place] - [facility] 09/22/2017 12:43:25 Imaging Results None recorded. Procedure Notes None recorded. Medical Equipment None Reported. Allergies Allergen ID Allergen Name Allergen Category Reaction Reaction Severity Criticality Documentation Date Start Date Code Code System Note Provider Name and Address Organization Details Recorded Time 736490 Reglan medicatio n other moderate Not available 03/14/2019 9230 RxNorm Monica wilkinson, [place] - [facility] 9 15:24:41 Medications Name Sig Start Date Stop Date Status Note LastModified by Organization Details LastModified Time amoxicilli n 500 mg capsule 01/12 completed Not Available Not Available Not Available clotrimazo le 10 mg yesenia 01/05 completed Not Available Not Available Not Available nystatin 100,000 unit/mL oral suspension TAKE FIVE (5) ML FOUR (4) TIMES A DAY BY ORAL ROUTE FOR FIVE (5) DAYS. active Not Available Not Available No t Available azithromyc in 250 mg tablet TAKE 2 TABLETS BY MOUTH ON DAY 1 AND THEN TAKE 1 TABLET BY MOUTH ONCE A DAY ON DAY 2 THROUGH DAY 5 09/29 completed Not Available Not Available Not Available sumatripta n 100 mg tablet Take 1 tablet at onset of migraine , may repeat in 2 hours if needed (Max 2 tablets/ 24 hours) 11/04 completed Not Available Not Available Not Available hydrocodon e 5 mg-acetami nophen 325 mg tablet 01/05 completed Not Available Not Available Not Available tretinoin 0.025 % topical cream APPLY TO THE AFFECTED AREA(S) BY TOPICAL ROUTE ONCE DAILY AT BEDTIME 03/14 completed Not Available Not Available Not Available minocyclin e 100 mg capsule active Not Available Not Available Not Available fluconazol e 200 mg tablet 01/05 completed Not Available Not Available Not Available phenazopyr idine 200 mg tablet TAKE 1 TABLET BY MOUTH THREE (3) TIMES DAILY 09/24 completed Not Available Not Available Not Available ondansetro n HCl 4 mg tablet active Not Available Not Available Not Available prednisone 20 mg tablet TAKE 1 TABLET BY MOUTH TWICE DAILY active Not Available Not Available No t Available benzoyl peroxide 5 % topical gel APPLY TO THE AFFECTED AREA(S) BY TOPICAL ROUTE Q am 03/14 completed Not Available Not Available Not Available Diflucan 150 mg tablet Take 1 tablet, and then take the next tablet in 72 hours 07/20 completed Not Available Not Available Not Available Provera 5 mg tablet Take 1 tablet every day for 14 days. Stop taking tablets for 14 days. 11/08 completed Not Available Not Available Not Available metronidaz ole 500 mg tablet Take 1 tablet every 12 hours by oral route for 7 days. 02/09 completed Not Available Not Available Not Available ciprofloxa tima 500 mg tablet Take 1 tablet every 12 hours by oral route. 01/03 completed Not Available Not Available Not Available levothyrox ine 25 mcg tablet active Not Available Not Available Not Available pantoprazo le 20 mg tablet,del ayed release TAKE 1 TABLET BY MOUTH EVERY DAY 08/12 completed Not Available Not Available Not Available amoxicilli n 875 mg tablet 09/24 completed Not Available Not Available Not Available clindamyci n 1 % topical gel APPLY TO AFFECTED AREA TWICE DAILY 09/24 completed Not Available Not Available Not Available benzonatat e 100 mg capsule active Not Available Not Available Not Available buspirone 10 mg tablet 09/29 completed Not Available Not Available Not Available omeprazole 20 mg capsule,de layed release TAKE 1 CAPSULE BY MOUTH IN THE MORNING FOR 30 DAYS 09/29 completed Not Available Not Available Not Available ranitidine 150 mg capsule 08/21 completed Not Available Not Available Not Available hydrochlor othiazide 25 mg tablet TAKE ONE (1) TABLET EVERY DAY BY ORAL ROUTE FOR 30 DAYS. active Not Available Not Available No t Available metoprolol succinate ER 25 mg tablet,ext ended release 24 hr TAKE 1/2 (ONE-MELCHOR F) TABLET BY MOUTH ONCE DAILY 01/05 completed Not Available Not Available Not Available levofloxac in 500 mg tablet 01/12 completed Not Available Not Available Not Available methylpred nisolone 4 mg tablets in a dose pack TAKE DIRECTED FOR 6 DAYS 01/05 completed Not Available Not Available Not Available bromphenir amine-pseu doephedrin e-DM 2 mg-30 mg-10 mg/5 mL oral syrup TAKE 5 ML BY MOUTH EVERY 6 HOURS NEEDED FOR COUGH active Not Available Not Available No t Available ondansetro n 4 mg disintegra ting tablet active Not Available Not Available Not Available cefdinir 300 mg capsule TAKE 1 CAPSULE BY MOUTH TWICE DAILY FOR 7 DAYS 01/12 completed Not Available Not Available Not Available fluticason e propionate 50 mcg/actuat ion nasal spray,susp ension USE 1 SPRAY(S) IN EACH NOSTRIL ONCE DAILY active Not Available Not Available No t Available amoxicilli n 875 mg-potassi um clavulanat e 125 mg tablet 01/05 completed Not Available Not Available Not Available clindamyci n phosphate 1 % topical solution APPLY A THIN LAYER TO THE AFFECTED AREA(S) BY TOPICAL once every morning active Not Available Not Available No t Available clindamyci n 1 % lotion APPLY A THIN LAYER TO THE AFFECTED AREA(S) BY TOPICAL ROUTE TWO (2) TIMES PER DAY 06/18 completed Not Available Not Available Not Available minocyclin e 100 mg tablet TAKE 1 TABLET BY MOUTH TWICE DAILY 01/12 completed Not Available Not Available Not Available Prelief 65 mg tablet TAKE TWO (2) TABLETS BY MOUTH WITH MEALS FOR UP TO SIX (6) TABLETS DAILY 02/09 completed Not Available Not Available Not Available nitrofuran toin monohydrat e/macrocry stals 100 mg capsule TAKE 1 CAPSULE BY MOUTH TWICE DAILY 09/10 completed Not Available Not Available Not Available Daily Vitamin Formula tablet Take by oral route. 02/19 completed Not Available Not Available Not Available ProAir HFA 90 mcg/actuat ion aerosol inhaler Inhale 2 puffs every 4 hours by inhalati on route. 03/14 completed Not Available Not Available Not Available Solu-Medro l (PF) 125 mg/2 mL solution for injection Take 125 mg by injectio n route. 11/08 completed Not Available Not Available Not Available Probiotic 08/12 completed Not Available Not Available Not Available loratadine 10 mg capsule Take 1 capsule every day by oral route. active Not Available Not Available No t Available Antiseptic Skin Cleanser (chlorhexi dine) 4 % liquid Apply 1 applicat ion every week by topical route. 03/14 completed Not Available Not Available Not Available 28 mg iron-800 mcg tablet Take 1 tablet every day by oral route. 09/29 completed Not Available Not Available Not Available Linzess 145 mcg capsule Take 1 capsule every day by oral route. 03/14 completed Not Available Not Available Not Available Linzess 290 mcg capsule 08/21 completed Not Available Not Available Not Available Trulance 3 mg tablet Take 1 tablet every day by oral route. 08/12 completed Not Available Not Available Not Available Nurtec ODT 75 mg disintegra ting tablet Take 1 tablet at onset of migraine (Max 1 tab/24 hours) 12/05 completed Gave x1 sample pack Not Available Not Available Not Available ID NOW COVID-19 Test Kit TEST DIRECTED TODAY 01/12 completed Not Available Not Available Not Available Vitals Date Recorded Body height Body mass index (BMI) Body weight Systolic blood pressure Diastolic blood pressure Provider Name and Address Organization Details Last Updated DateTime 07/20/2022 167.64 cm 40.8 kg/m2 353188.8 7 g 116 mm[Hg] 72 mm[Hg] Monica Vásquez [place] - [facility] 3 16:34:38 Date Recorded Body height Body mass index (BMI) Body weight Systolic blood pressure Diastolic blood pressure Provider Name and Address Organization Details Last Updated DateTime 09/24/2021 167.64 cm 40.2 kg/m2 379747.5 g 116 mm[Hg] 78 mm[Hg] Erin Gibbons [facility] 2 09:12:59 Date Recorded Body height Body mass index (BMI) Body weight Systolic blood pressure Diastolic blood pressure Provider Name and Address Organization Details Last Updated DateTime 01/05/2023 167.64 cm 40 kg/m2 858887.9 1 g 118 mm[Hg] 82 mm[Hg] Amelie Mayfield [facility] 3 14:16:13 Date Recorded Body height Body mass index (BMI) Body weight Systolic blood pressure Diastolic blood pressure Provider Name and Address Organization Details Last Updated DateTime 01/12/2022 167.64 cm 40.2 kg/m2 018992.5 g 104 mm[Hg] 62 mm[Hg] Erin Gibbons [facility] 2 14:34:42 Date Recorded Body height Body mass index (BMI) Body weight Systolic blood pressure Diastolic blood pressure Provider Name and Address Organization Details Last Updated DateTime 02/09/2022 167.64 cm 39.1 kg/m2 165976.3 5 g 126 mm[Hg] 78 mm[Hg] Amelie Mayfield [facility] 2 13:07:43 Social History Question Answer Notes LastModified by Organizat ion Details LastModified Time Tobacco Smoking Status Former Smoker Monica wilkinson, [facility] 07/20/2022 16:27:52 Able To Swim? Yes Information not available 09/22/2017 Do You Have An Advance Directive? No Information not available 09/22/2017 Are You Blind Or Do You Have Difficulty Seeing? No Information not available 01/30/2018 Is Blood Transfusion Acceptable In An Emergency? Yes Information not available 01/30/2018 What Is Your Level Of Caffeine Consumption? Moderate Information not available 08/12/2021 In The 14 Days Before Symptom Onset, Have You Had Close Contact With A Laboratory-confi rmed COVID-19 While That Case Was Ill? No [email or web address] Information not available 02/09/2022 In The 14 Days Before Symptom Onset, Have You Had Close Contact With A Person Who Is Under Investigation For COVID-19 While That Person Was Ill? No [email or web address] Information not available 02/09/2022 Have You Been To An Area Known To Be High Risk For COVID-19? No Information not available 08/12/2021 Are You Deaf Or Do You Have Serious Difficulty Hearing? No Information not available 01/30/2018 What Type Of Diet Are You Following? REGULAR Information not available 03/14/2019 Which Illicit Or Recreational Drugs Have You Used? NONE Information not available 09/22/2017 Have You Processed Blood Or Body Fluids From An Ebola Virus Disease Patient Without Appropriate PPE? No Information not available 08/12/2021 Do You Reside In Or Have You Traveled To An Area Where Ebola Virus Transmission Is Active? No Information not available 08/12/2021 What Is The Highest Grade Or Level Of School You Have Completed Or The Highest Degree You Have Received? [id number] Information not available 01/30/2018 How Many Days Of Moderate To Strenuous Exercise, Like A Brisk Walk, Did You Do In The Last 7 Days? 1 Information not available 01/30/2018 On Those Days That You Engage In Moderate To Strenuous Exercise, How Many Minutes, On Average, Do You Exercise? 1 Information not available 01/30/2018 Swimming/diving Yes Informati on not available 09/22/2017 Have There Been Any Changes To Your Family Or Social Situation? No Information not available 08/12/2021 How Hard Is It For You To Pay For The Very Basics Like Food, Housing, Medical Care, And Heating? Not Very Hard Information not available 08/12/2021 What Is The Fluoride Status Of Your Home? Unknown Information not available 08/12/2021 When Did You Quit Smoking? 1-5yearssincelas tcigarette Information not available 07/20/2022 Hard Of Hearing Or Deaf In One Or Both Ears? No Information not available 09/22/2017 Have You Recently Or Are You Planning To Travel To An Area With Zika Virus? No Information not available 08/12/2021 Legally Blind In One Or Both Eyes? No Information not available 09/22/2017 Live Alone Or With Others? With Others Information not available 09/22/2017 Last Menstrual Period? 07/04/2022 Information not available 07/20/2022 What Was The Date Of Your Most Recent Tobacco Screening? 07/20/2022 Information not available 07/20/2022 How Many Children Do You Have? 1 Information not available 09/22/2017 Performs Monthly Self-breast Exam? Yes Information not available 07/20/2022 Do You Use Protection During Sex? No Information not available 01/30/2018 Do You Use Protection Against STDs? No Information not available 08/12/2021 What Is Your Relationship Status? Information not available 07/20/2022 Seat Belts Used Routinely Yes Information not available 09/22/2017 Are You Sexually Active? Yes Information not available 09/22/2017 Smoke Alarm In Home Yes Information not available 09/22/2017 Do You Have Smoke And Carbon Monoxide Detectors In Your Home? Yes Information not available 08/12/2021 At What Age Did You Start Smoking Tobacco? 14 Information not available 07/20/2022 Are You Passively Exposed To Smoke? No Information not available 09/22/2017 How Much Tobacco Do You Smoke? 0.5 PPD [email or web address] Information not available 02/09/2022 General Stress Level Medium Information not available 09/22/2017 Do You Use Sunscreen Routinely? Yes In The Summer Time Information not available 08/12/2021 How Many Years Have You Smoked Tobacco? 6 Information not available 09/22/2017 Do You Have Difficulty Walking Or Climbing Stairs? No Information not available 01/30/2018 What Contraceptive Method Was Reported At Start Of This Visit? None Information not available 08/12/2021 What Contraceptive Method Was Reported At End Of This Visit? None Information not available 08/12/2021 Do You Want To Talk About Contraception Or Prevention During Your Visit Today? No - I Do Not Want To Talk About Contraception Today Because I Am Here For Something Else Information not available 08/12/2021 How Many Years Have You Used E-cigarettes Or Vape? 10 Information not available 07/20/2022 Do You Have Any Future Plans To Get ? No, I Don't Want To Become [email or web address] Information not available 02/09/2022 What Is Your Reason For Having No Contraceptive Method At Start Of This Visit? Other Information not available 08/12/2021 Sex: Female Functional Status Question Answer Note LastModified by Organizat ion Details LastModified Time Do you or have you ever used smokeless tobacco? Never used smokeless tobacco Information not available 12/05/2020 Are you currently employed? Yes Information not available 09/22/2017 Do you have transportation difficulties? No Information not available 08/12/2021 Urinary incontinence assessment performed? No Information not available 01/30/2018 Are you able to care for yourself? Yes Information n ot available 09/22/2017 Do you have difficulty dressing or bathing? No Information not available 01/30/2018 Do you or have you ever used e-cigarettes or vape? Current user of electronic cigarettes Information not available 07/20/2022 What is your exercise level? Moderate Information not available 09/22/2017 Do you use any illicit or recreational drugs? No Information not available 08/12/2021 Do you or have you ever used any other forms of tobacco or nicotine? No Information not available 08/12/2021 What is your level of alcohol consumption? None Information not available 09/22/2017 What is your status? Not Information no t available 08/12/2021 Are you able to walk? YESWOREST Information not available 09/22/2017 Do you have difficulty doing errands alone? No Information not available 01/30/2018 What is your occupation? [employer]) Information not available 07/20/2022 Mental Status Question Answer Note LastModified by Organizat ion Details LastModified Time Do you feel stressed (tense, restless, nervous, or anxious, or unable to sleep at night)? [id number] Information not available 08/12/2021 Do you have difficulty concentrating, remembering or making decisions? No Information no t available 01/30/2018 Family History Relationship Description Onset Age of this Age Resolved Age Notes LastModified by Organization Details LastModified Time Maternal Grandmother Hypertensive disorder Not available 2017 12:40:25 Paternal Grandmother Diabetes mellitus Not available 2017 12:40:34 Father Disorder of thyroid gland CANCER Not available 2017 12:41:03 Mother Disorder of thyroid gland LARGE MASS -THYRO ID GLAND REMOVE D Not available 09/22/2017 12:41:03 Mother Neoplasm of uterine cervix Not available 2018 15:18:11 Mother Uterine leiomyoma [email or web address] Not available 2021 09:10:51 Medical History Condition Response Pancreatitis N Coronary Artery Disease N Other N Gout N Atrial Fibrillation N congenital heart disease N Kidney Stones N Blood Diseases N Hyperthyroidism N Rheumatoid arthritis N Blood Transfusion N Erectile Dysfunction N amputation N Colonoscopy N Skin Lesions N Depression N COPD N Pneumonia N Incontinence N Murmur N Edema N Alzheimer's Disease N Migraine Headaches N Tobacco Abuse N Anxiety Disorder N Muscle, Joint, or Bone Problems N Hemorrhoids N Obesity N Vision or Eye Problems N Restless Leg Syndrome N Arthritis N Polyps N Infertility N Mental Disorder N Carpal Tunnel N Acid Reflux (GERD) N Cancer N Varicosities N Stroke N Tendonitis N Crohn's Disease N Hypercholesterolemia N Skin Cancer N Headaches N Fibromyalgia N Irritable Bowel Syndrome N Anal Fissure N Kidney Disease N Heart Problems N Ear or Hearing Problems N Hospitalizations N Gallstones N Kidney or Bladder Problems N Goiter N Acne N Skin Problems N Eating Disorder N Meyer's Esophagus N Hypertriglyceridemia N MRSA exposure N Constipation Y Embolism N Vitamin B12 Deficiency N Deviated Septum N Tuberculosis N AIDS/HIV N Myocardial Infarction N Asthma N Mitral Valve Disorders N Vertigo N Hepatitis N Thyroid Cancer N Neuropathy N Pulmonary Embolism N History of DVT N Herniated Disc N Chronic Ear Infections N Chicken Pox N Autism Spectrum Disorder (ASD) N Von Willebrands Disease N Thrombophilias N Breast Cancer N Hernia N Plantar Fasciitis N Hospital Admission Other Than N Lung Disease N Hypothyroidism N Defects or Inherited Disease N Developmental or Behavioral Disorders N Breast Problem N Difficulty Swallowing N Ovarian Cyst N Anesthesia Complications N Testosterone Deficiency N Meniere's disease N Head Injury/Concussion N Interstitial Cystitis N Congenital Anomalies N Hypoglycemia N Blood clot N Vitamin D Deficiency N Cellulitis N Endometriosis N Bladder or Kidney Problems N Fracture N Liver Disease N Schizophrenia N Panic Disorder N Concussion N Spina Bifida N Allergies/Hayfever N Osteoarthritis N Parkinson's Disease N Disc Protrusion N STI N Esophagitis N Angina N Thyroid Problems N GI Problems N ADD/ADHD N Anemia Y Multiple Sclerosis N Abnormal PAP N Lumbago N Mental Illness N Psychiatric Illness N Ovarian Cancer N Diabetes N Bedwetting N Degenerative Disc Disease N Seizures/Epilepsy N Congestive Heart Failure (CHF) N Syncope N Hyperlipidemia N Insomnia N Eczema N Abuse/Domestic Violence N Attention Deficient Disorder N Dementia N Diverticulitis N Ulcerative colitis N Cerebrovascular Disease N Depression N Guillain-[place] N Sleep Apnea N Aneurysm N Bronchitis N Heart Disease N Suicidal Ideation N Pre-Eclampsia N Hypertension Y Osteoporosis N Gynecological History Statement/Question Response Abnormal Pap Y Flow Moderate Date of LMP 12/22/2022 STIs/STDs Yes Colposcopy 01/26/2021 HPV Vaccine N Duration of Flow (days) 5 Current Control Method None Age at Menarche 13 Age at First Child 19 Last Annual Exam/Provider 08/12/2021 Date of Last Colonoscopy 07/18/2020 Frequency of Cycle (Q days) 30 Sexually Active? Y Menses Monthly Y Date of Last Pap Smear 01/05/2023 Sexual Problems? Yes LMP Approximate Desired Control Method None Obstetrics History GPAL:G 1 P 0 0 0 1 Type Value Living 1 Total 1 Past Encounters Encounter ID Performer Location Encounter Start Date Encounter Closed Date Diagnosis/Indication Diagnosis SNOMED-CT Code Diagnosis ICD10 Code Diagnosis Note [id number] HAILEY Murray[address] [place] [id number] 09/22/2017 12:33:02 09/22/2017 12:51:30 Eustachian tube disorder 13260053 H69.90 [id number] Naheed Hidalgo APRN [address] [place] [id number] 01/03/2018 08:05:15 01/03/2018 08:45:21 Hypothyroidism 10141282 E03.9 Anemia 789292896 D64.9 Vitamin D deficiency 347 05607 E55.9 [id number] MD Mere [place] [employer] [address] [place] [address] [place] [id number] 01/30/2018 15:07:25 01/30/2018 15:58:53 Pain in pelvis 79378447 R10.2 Venereal d isease screening 728165496 Z11.3 Oligomenorrhea 27209970 N91.5 Polycystic ovaries 73648 008 E28.2 Hidradenit is suppurativa 85268809 L73.2 [id number] MD Mere [place] [employer] [address] [place] [address] [place] [id number] 7 02/20/2018 13:18:56 02/20/2018 14:22:33 Oligomenorrhea 29137171 N91.5 Polycystic ovaries 43619 008 E28.2 Pain in pelvis 61536919 R10.2 [id number] MD John [place] [employer] [address] [place] [address] [place] [id number] 7 05/02/2018 09:02:13 05/02/2018 09:25:51 Abnormal uterine bleeding 4422014948 9100 N93.9 Oligomenorrhea 17770272 N91.5 Polycystic ovaries 24397 008 E28.2 Hidradenit is suppurativa 64025602 L73.2 [id number] Naheed Hidalgo APRN [address] [place] [id number] 7 06/06/2018 09:51:55 06/06/2018 11:19:11 Acute bronchitis 41382852 J20.9 Cough 23904814 R05 Fatigue 35335585 R53.83 [id number] Sue Anglin APRN [address] [place] [id number] 7 06/28/2018 12:48:18 06/28/2018 17:16:50 Acne 48146293 L70.9 We discussed support measures.P atient provided with printed informatio n on preventati ve and support measures for acne.We discussed starting Spironolac tone and will re-evaluat e in the future. Hidradenit is suppurativa 39441909 L73.2 Patient pleased with the current control with her H.S. She believes that the surgical wash is helping a great deal and will continue use. [id number] MD John [place] [employer] [address] [place] [address] [place] [id number] 7 09/11/2018 13:52:08 09/11/2018 14:32:49 Abnormal uterine bleeding 7910084978 9100 N93.9 Hidradenitis 90995212 L7 3.2 Polycystic ovaries 27756 008 E28.2 Venereal d isease screening 416494141 Z11.3 [id number] MD John [place] [employer] [address] [place] [address] [place] [id number] 11/02/2018 13:12:35 11/02/2018 13:46:27 Vaginal discharge 192556670 N89.8 Candidiasis of vagina 72 659405 B37.3 [id number] Naheed Hidalgo APRN [address] [place] [id number] 7 11/08/2018 14:48:45 11/08/2018 15:34:32 Fatigue 77060810 R53.83 Memory impairment 865272 006 R41.3 Dizziness and giddiness 115926533 R42 [id number] Naheed Hidalgo APRN [address] [place] [id number] 7 11/21/2018 09:59:56 11/21/2018 15:29:14 Vitamin B12 deficiency (non anemic) 22455377 E53.8 Vitamin D deficiency 347 68086 E55.9 [id number] Naheed Hidalgo APRN [address] [place] [id number] 7 01/10/2019 16:00:28 01/10/2019 16:27:14 Acne 91941234 L70.9 Memory impairment 264768 006 R41.3 Chronic constipation 236 529768 K59.09 Food intolerance 6981050 0 K90.49 Impairment of balance 38 4602233 R26.89 Paresthesi a of lower extremity 819138540 R20.2 [id number] MD John [place] [employer] [address] [place] [address] [place] [id number] 7 03/14/2019 14:57:40 03/14/2019 15:48:16 Routine gynecologic examination done 9943960655 9101 Z01.419 Depression screening 171 790314 Z13.89 PHQ 9 negative Diet education 52138515 Z71.3 Counseling 765197926 Z71 .82 Exercise counseljohn nice Patient encouraged to exercise 30 minutes 5 days a week. Examinatio n of blood pressure 639831118 Z01.30 Normotensi ve Screening for malignant neoplasm of cervix 260640593 Z12.4 Pap collected Vaginal discharge 403009 006 N89.8 Pelvic ward or dysfunction 480892124 M62.9 Polycystic ovaries 29453 008 E28.2 Family his tory of breast cancer 785410560 Z80.3 [id number] MD John [place] [employer] [address] [place] [address] [place] [id number] 7 08/21/2019 10:53:04 08/21/2019 11:54:03 Cervical intraepithelial neoplasia grade III with severe dysplasia 827243285 D06.9 [id number] MD John [place] [employer] [address] [place] [address] [place] [id number] 7 09/11/2019 14:52:56 09/11/2019 15:49:37 Cervical intraepithelial neoplasia grade III with severe dysplasia 042566264 D06.9 [id number] MD John [place] [employer] [address] [place] [address] [place] [id number] 7 09/25/2019 13:05:49 09/25/2019 13:21:20 History of loop electrosurgical excision procedure 2109341995 9102 Z98.890 Cervical intraepithelial neoplasia grade III with severe dysplasia 295268479 D06.9 [id number] MD John [place] [employer] [address] [place] [address] [place] [id number] 7 11/08/2019 15:58:57 11/08/2019 16:26:39 Mass of left breast 2758644687 4072461 N63.20 [id number] MD John Blount [employer] [address] [place] [address] [place] [id number] 7 02/20/2020 15:34:15 02/20/2020 16:34:29 Cervical intraepithelial neoplasia grade III with severe dysplasia 471051780 D06.9 Acne 17194613 L70.9 [id number] MD John [place] [employer] [address] [place] [address] [place] [id number] 7 06/18/2020 10:30:20 06/18/2020 11:34:32 Polycystic ovary syndrome 789114097 E28.2 Trying to conceive 86604 9001 Z31.9 History of loop electrosurgical excision procedure 2487069427 9102 Z98.576 [id number] MD John Blount [employer] [address] [place] [address] [place] [id number] 7 09/29/2020 15:14:02 09/29/2020 16:25:12 Screening for malignant neoplasm of cervix 874195390 Z12.4 Pap collected Cervical intraepithelial neoplasia grade III with severe dysplasia 206230252 D06.9 Dyspareunia 41736735 N94 .10 Mass of left breast 1224 247686 7514357 N63.20 Family his tory of breast cancer 601807558 Z80.3 [id number] Miranda Pa APRN [address] [place] [id number] 7 10/01/2020 11:19:30 10/01/2020 12:03:02 Essential hypertension 50903925 I10 Advised to check BP daily at home. Follow-up in 1 month. Fatigue 39996788 R53.83 Migraine 17161744 G43.90 9 [id number] Miranda Pa APRN [address] [place] [id number] 7 10/17/2020 08:06:55 10/17/2020 08:38:56 Essential hypertension 16719609 I10 Advised to check BP daily at home. Follow-up in 1 month. Migraine 60367589 G43.90 9 She has not used the sumatripta n yet, only Tylenol PRN. Body mass index 30+ - obesity 810165264 Z68.38 Hidradenit is suppurativa 83930348 L73.2 [id number] Miranda aP APRN [address] [place] [id number] 11/04/2020 08:18:10 11/04/2020 09:01:54 Migraine 10063738 G43.909 Dizziness 457995651 R42 Labs previously done at last visit were normal. Blurring o f visual image 020568580 H53.8 Neck pain 72322944 M54.2 [id number] Miranda Pa APRN [address] [place] [id number] 7 12/05/2020 08:15:03 12/05/2020 09:06:31 Edema of lower extremity 375096394 R60.0 Resolved - advised on elevation of legs, adequate hydration, reduced sodium intakes, compressio n stockings PRN. F/U if worsens. Low back pain 880224531 M54.5 Thoracic back pain 91217 8004 M54.6 Migraine 95077642 G43.90 9 Advised to F/U with Neuro as scheduled. F/U in office needed before then. [id number] Miranda Pa APRN [address] [place] [id number] 12/09/2020 13:55:58 12/09/2020 14:38:24 Body mass index 30+ - obesity 708980952 Z68.39 Chest pain 43139492 R07. 9 Labs performed previously . Will refer to Cardiology today. F/U in office if symptoms worsen, or go to ER for any chest pain lasting longer than 5 minutes or increased shortness of breath. Already had recent labs October 2020 - no need for additional labs today. Palpitations 55946067 R0 0.2 [id number] MD John [place] [employer] [address] [place] [address] [place] [id number] 01/26/2021 13:12:53 01/26/2021 14:39:11 Abnormal cervical Papanicolaou smear 051312453 R87.619 Screening for malignant neoplasm of cervix 044027494 Z12.4 [id number] Zainab Ch MD [place] [facility] [address] [place] [address] [place] [id number] 04/15/2021 08:58:03 04/15/2021 09:18:57 Abnormal cervical Papanicolaou smear 075045185 R87.619 Vaginal discharge 996315 006 N89.8 Dyspareunia 51323760 N94 .10 [id number] Corry Sears APRN [address] [place] [id number] 06/18/2021 09:38:21 06/18/2021 10:27:06 Abdominal pain 74685769 R10.9 Depression screening 171 531521 Z13.31 Gastroesop hageal reflux disease 043336052 K21.9 Chronic constipation 236 945784 K59.09 Abdominal bloating 43030 9008 R14.0 Nausea 088003369 R11.0 Body mass index 40+ - severely obese 763615322 Z68.41 [id number] MD Mere [place] [employer] [address] [place] [address] [place] [id number] 7 08/12/2021 13:57:13 08/12/2021 14:45:12 Routine gynecologic examination done 9375525115 9101 Z01.419 Depression screening 171 026467 Z13.89 PHQ 9 negative Diet education 86742169 Z71.3 Counseling 009582387 Z71 .82 Exercise counsellin g. Patient encouraged to exercise 30 minutes 5 days a week. Examinatio n of blood pressure 596089676 Z01.30 Normotensi ve Vaccine de clined by patient 2344606847 02 Z28.21 Obesity 397398386 E66.9 Screening for malignant neoplasm of cervix 339531321 Z12.4 Hidradenit is suppurativa 23895046 L73.2 [id number] Luis Mitchell MD [address] [place] [id number] 09/10/2021 14:58:29 09/10/2021 15:35:57 Pharyngitis 465983925 J02.9 [id number] Araseli Mills APRN [place] [facility] [address] [place] [address] [place] [id number] 7 09/24/2021 08:40:43 09/24/2021 09:34:52 Dysuria 86158295 R30.9 Chronic constipation 236 643403 K59.09 Body mass index 40+ - severely obese 726337301 Z68.41 [id number] Alis Mays DO [place] [facility] [address] [place] [address] [place] [id number] 7 01/12/2022 14:23:40 01/12/2022 15:14:15 Irregular periods 77862848 N92.6 Sterilizat ion requested 400017709 Z30.2 Abnormal c ervical Papanicolaou smear 821806914 R87.619 Chronic in terstitial cystitis 312243903 N30.10 [id number] Zainab Ch MD [place] [employer] [address] [place] [address] [place] [id number] 02/09/2022 13:00:30 02/09/2022 13:30:25 Pre-surgery evaluation 170286083 Z01.818 Sterilizat ion requested 707727313 Z30.2 Contracept ion care management 479783907 Z30.9 Condyloma acuminata of vulva 719388143 A63.0 [id number] MD John Blount [employer] [address] [place] [address] [place] [id number] 07/20/2022 16:00:19 07/20/2022 17:05:27 Routine gynecologic examination done 4754051009 9101 Z01.419 Depression screening 171 171854 Z13.89 PHQ 9 negative Examinatio n of blood pressure 001552605 Z01.30 Normotensi ve Body mass index 40+ - severely obese 909783875 Z68.41 Screening for malignant neoplasm of cervix 715581488 Z12.4 Vaginal pain 21003338 R1 0.2 Dyspareunia 24797597 N94 .10 Sebaceous cyst of skin 557191726 L72.3 [id number] MD John Blount [employer] [address] [place] [id number] 01/05/2023 13:55:12 01/05/2023 14:44:41 Venereal disease screening 739842469 Z11.3 Postcoital bleeding 4888 0000 N93.0 Abnormal u terine bleeding 6500275073 9100 N93.9 Health Concerns Section Related Observation LastModified by Organization Detai ls LastModified Time None Recorded Concern Status LastModified by Organization Details LastModified Time None Recorded Advance Directives Directive N: Payers Insurance Date Sequence Insurance Name Policy Number Policy Mai Covered Member ID Mai Member ID Guarantor Name 04/23/2023 [id number] [id number] Araceli [place] [id number] Fabymarybessy [place] 01/12/2022 1 [employer] [facility] (MEDICAID HMO) Araceli [place] [id number] Fabyollie [place] 04/23/2023 1 [employer] [facility] (MEDICAID HMO) Araceli [place] [id number] Katy [place] 08/21/2019 1 *SELF PAY* Faby [place] 02/10/2022 1 [id number] Katy [place] [id number] Katy Gill [place] Notes Date Note Type Note Provider Name and Address Organization Details Recorded Time 09/24/2021 text/html DysuriaReported bypatient.Quality:burn ing;pressure;pain Severity:worsening; moderate Duration:symptoms lasting over 2 weeks Timing:worse Modifying Factors:nothing gives reliefNotes:Katy presents today for ongoing s/s possible UTI. She states s/s started about a month ago and she had telehealth visit with her PCP. She was prescribed AZO and Macrobid. She states her dysuria has improved, however, she still has urgency, frequency and suprapubic cramping. She is also suffering with constipation stating it has been about 5 days since last BM. She used Magnesium citrate last night. She has had a very comprehensive GI workup and ultimately dx with IBS-C. She doesn't feel any medications she has tried are very helpful.She states her mother wanted her checked out to r/u kidney stone. She denies flank pain. She has some mid-low back pain and attributes this to RV uterus and constipation. Katy presents today for ongoing urinary issues, sx started a month ago did a telehealth visit with pcp at her work called in Macrobid and azo, finished those, but continues to have dysuria, frequency, lots of pressure, cramping. Araseli Gene, [employer] [address], [place], [address], [place] - [facility] 09/24/2021 10:25:12 01/12/2022 text/html Katy presents today for ongoing pelvic pain, pain with intercourse, and irregular bleeding. Katy would also like to discuss getting a tubal ligation. Katy states took a plan B on 12/28/21, had bleeding on 01/01/22 was light no cramping, has not did a UPT at home, desires that today, states did start spotting again yesterday. Katy fears that her cervical dysplasia could be back as she had similar issues with the pelvic pain and painful intercourse when it was found. Has had vaginal candidiasis after a round of abx recently. No symptoms currently. Last pap 08/12/21. States she had a LEEP 2 years ago. States that prior to this she had pain during intercourse. Low libido. Pt presents for preop for laparoscopic bilateral salpingectomy The patient was counseled about the procedure of laparoscopic bilateral salpingectomy, of the indications and proposed benefits of the proposed surgery. The potential risks of any procedure including but not limited to, bleeding, infection, and anesthetic complications were reviewed; complications specific to gynecological procedures including damage to surrounding organs (vagina, bladder, ureters, gastrointestinal organs, nerves, or muscles), risks from surgical positioning, and deep vein thrombosis or pulmonary embolism risks were reviewed. The alternatives to this procedure which include other contraceptive options including vasectomy for her partner and other reversible hormonal methods for the patient herself were discussed and the patient prefers to proceed with the above surgical option. The proposed benefit of the surgical procedure is for sterilization. Discussed possibility of still needing control to control her periods. Realistic expectations have been discussed. PSH: LEEP, tonsils & adenoids, umbilical hernia surgery at only a few weeks old, wisdom teethAllergies: reglan (hot and itchy and hives) gluteinMeds: metoprolol Discussed pre and post op care. Answered all questions. Will sign sterilization papers today. Interstitial cystitis questionnaire given and score positive for IC. Discussed IC care guide as well as first line treatments including dietary changes and OTC prelief. Alis Laygera [place], [place] - [facility] 01/12/2022 15:06:27 02/09/2022 text/html Hal is here for pre-op for laparoscopic bilateral salpingectomy. We reviewed options for surgical sterilization. The patient has decided on bilateral salpingectomy. We reviewed alternatives including LARCs, hormonal contraceptives, barrier methods, and partner vasectomy. The patient is aware of the risks of regret. She is aware of the risks of failure, including ectopic . She is aware that this procedure cannot be reversed and is considered permanent. We reviewed surgical risks including bleeding, infection, pneumonia, heart complications, VTE, damage to other organs, damage to muscles, nerves, and need for further procedures. She is 100% certain she wants to proceed. She states she does not want to have another baby. She had been considering trying to conceive previously, but has since left that relationship, and said that she truly does not want to conceive again. She is practicing abstinence until after surgery. 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 She reports that she is in a new relationship and so very happy!! She says that they got . Very healthy relationship. They are not preventing . She is happy she did not have a sterilization procedure. She is complaining of low sex drive and pain with intercourse that seems to be getting worse. Deep and outer penetration are both triggers. She feels a lot of pressure around the time of ovulation. She went to the ER when she thought she had a prolapse, but they could not do anything for her. She did have a CT scan that showed a ruptured follicle. She says it also showed enlarged mesentary Brienna denies depression/anxiety. Zainab Ch MD [address], [place], [id number], [place] - [facility] 07/29/2022 13:27:41 01/05/2023 text/html Katy is here to discuss post-coital bleeding. She reports that after intercourse, she has been having bleeding, and this concerned her given her hx of cervical dysplasia. She has also noticed more irregular bleeding. She says she had cholecystitis which was the cause of her enlarged mesenteric lymph nodes. She never returned for pelvic US that was advised after annual 07/2022 for pelvic pain Zainab Ch MD [address], [place], [id number], [place] - [facility] 01/09/2023 16:33:00 OBGyn Episode Ob Episode Information Episode Created Date Number of Fetuses Patient Bloodtype Patient rh Status Prepregnancy Weight lbs Domestic Partner Domestic Partner Phone Father Name Tick Sewer Status 01/31/20 18 1 CLOSED Fetus Data First Name Last Name Admitted to NICU Weight (g) Sex Living Outcome Pediatric Complications Fetus ID Race Codes Race Delivery Type 3515.33 8 M Full Term [id number] Vaginal Sin Calculation Initial Sin Date Initial Exam Date Initial Exam Provider Initial Ultrasound Date Last Menstrual Period Date Ultra Sound Weeks Gestation 0 Eighteen To Twenty Week Sin Update Ultra Sound Date Fundal Height At Umbil Quickening Date Ultra Sound Latest Weeks Gestation Final Sin Confirmed By Final Sin Confirmed Date Final Sin Date Ultra Sound Latest Days Gestation 0 0 Menstrual History Last Menstrual Date Menses Monthly On Bcp Conception Prior Menses Frequency Hcg Plus Date Menarche Onset Age Delivery Information Delivery Date Delivery Type Labor Anesthesia Weeks Gestation Incision Type Labor Labor Length Hrs Delivered By Post Complications Tubal Sterilization Discharge Date Comments 5 Regional-Ep idural 40 false 17 [facility] Discharge Information Feeding Method Contraceptive Method Maternal HG B and HCT Levels
--- OUTSIDE RECORDS SUMMARY | 2025-01-03 10:58 | XMS_ITS | Clinical Summary ---
Author Organization Healthcare Address [address] [place] [address] Care Team Providers Care [employer] Founder Name Role Phone Miranda Pa HAILEY Primary Care Provider + Family History Medical History Relation Name Comments Thyroid disease Father Diabetes Father's Sister Lung cancer Other Diabetes Paternal Grandmother Relation Name Status Comments Father Father's Sister Other Paternal Grandmother Social History Tobacco Use Types Packs/Day Years [...] on file Sexual Orientation Not on file Last Filed Vital Signs Vital Sign Reading Time Taken Comments Blood Pressure - - Pulse - - Temperature - - Respiratory Rate - - Oxygen Saturation - - Inhaled Oxygen Concentration - - Weight 102 kg (225 lb) 02/21/2014 11:08 AM EDT Height 165.1 cm (5' 5 ) 02/21/2014 11:08 AM EDT Body Mass Index 37.44 02/21/2014 11:08 AM EDT Plan of Treatment Health Maintenance Due Date Last Done Comments [facility]-Depression Screening 1995 [facility]-/Child/Adol SDOH Screenings 1995 [facility]-Hepatitis B Vaccines (2 of 3 - 3-dose series) 03/02/1996 02/03/1996 [facility]-IPV Vaccines (3 of 3 - 4-dose series) 02/05/2000 08/07/1999, 1995 [facility]-Varicella Vaccines (1 of 2 - 13+ 2-dose series) 01/29/2008 HPV Vaccines (1 - 3-dose series) 2010 [facility]- SDOH Screenings 2013 [facility]-Adult SDOH Screenings 2013 [facility]-Pap Smear 01/29/2016 [facility]-DTaP,Tdap,and Td Vaccines (4 - Td or Tdap) 02/16/2016 02/15/2006, 08/07/1999, 1995 [id number] Vaccine ( - 2023- season) 2024 [facility]-Influenza Vaccine (Season Ended) 2025 [facility]-Zoster Vaccines (1 of 2) 2045 [facility]-HIB Vaccines Aged Out 1995 No longer e ligible based on patient's age to complete this topic [facility]-Hepatitis A Vaccines Aged Out No longer eligible based on patient's age to complete this topic [facility]-Pneumococcal Vaccine: Pediatrics (0 to 5 Years) and At-Risk Patients (6 to 49 Years) Aged Out No longer eligible b ased on patient's age to complete this topic [facility]-Rotavirus Vaccines Aged Out No lo nger eligible based on patient's age to complete this topic [facility] Care Teams [employer] Founder Relationship Specialty Start Date End Date Miranda Pa APRN [address] [place] [address] Dr Lopez SARAN [phone] PCP - General 11/28/20
[2025-01-03] MEDS: LACTATED RINGERS 1000ML 1,000 ML 999 ML IV (11:29)
[2025-01-03] MEDS: KETOROLAC 30MG/ML VIAL 30 MG IV (11:30)
[2025-01-03 12:40] VITALS: BMI 41.9
[2025-01-03 12:44] LABS: Microscopic, Urine URINE MICROSCOPIC (MICROSCOPIC)
[2025-01-03 12:47] LABS: Appearance,Urine CLEAR (Clear); Bilirubin,Urine Negative (Negative); Blood, Urine Negative (Negative); Color,Urine YELLOW (Yellow); Glucose,Urine (UA) Negative (Negative); Ketones,Urine TRACE (Negative); Leukocyte Esterase,Urine Negative (Negative); Nitrate,Urine Negative (Negative); Protein,Urine Negative (Negative); Specific Gravity, Urine 1.025 (1.005-1.030); Urobilinogen,Urine 0.2 EU/dl (0.2)
[2025-01-03 13:04] LABS: Bacteria,Urine 1+ /lpf
== END 2025-01-03 13:30 | disposition home or self-care (01) ==
LOC: OBOUT 10:54 → OB 10:56
PROVIDERS: Visit Provider Obstetrics & Gynecology
DX: Z34.82 Encounter for supervision of other normal pregnancy, second trimester (principal); G43.909 Migraine, unspecified, not intractable, without status migrainosus; Z3A.17 17 weeks gestation of pregnancy
CPT/HCPCS: 81001; 96374; 99212; G0463; J1885; J7120

== ENCOUNTER 2025-01-07 20:52 | Emergency (ER) | payer OTHER, SELFPAY ==
[2025-01-07 20:59] VITALS: BP 136/63; PULSE 97; RESP 18; TEMP 36.8; O2SAT 98; BMI 35.5
--- OUTSIDE RECORDS SUMMARY | 2025-01-07 21:05 | XMS_ITS | Clinical Summary ---
Author Organization Healthcare Address [address] [place] [address] Care Team Providers Care [employer] Name Role Phone Miranda Pa HAILEY Primary [...] Td or Tdap) 02/16/2016 02/15/2006, 08/07/1999, 1995 [id number] Vaccine ( - 2023- season) 2024 [facility]-Influenza [...] patient's age to complete this topic [facility] Care Teams [employer] Relationship Specialty Start Date End Date Miranda Pa APRN [address] [place] [address] Dr Lopez SARAN [id number] PCP - General 11/28/20
--- OUTSIDE RECORDS SUMMARY | 2025-01-07 21:05 | XMS_ITS | Data Portability ---
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 Lab cytology report, thin prep, smear or scraping, cervical or vaginal 2022 023 [facility]L [facility], [address], [place], [address], 3 12:13:17 TSH + free T4, serum 2022 023 [facility], [address], [place], [address], 3 10:36:51 testosteron e, free + total, serum 2022 023 [facility], [address], [place], [address], 3 10:36:52 HbA1c (hemoglobin A1c), blood 2022 023 [facility], [address], [place], [address], 3 10:36:55 test, urine 2022 023 [email or web address] 2 [place] [facility] Chair, [address] [place] [address] , [place], [address], 3 16:31:01 vaginal pathogens panel, AVIVA+probe, vaginal fluid 2022 023 [facility], [address], [place], [address], 3 10:36:50 HIV 1 + 2, meaningful use set 2022 023 [facility], [address], [place], [address], 3 10:36:52 RPR (rapid plasma reagin), serum 2022 023 [facility], [address], [place], [address], 3 10:36:53 HBsAg (hepatitis B surface Ag), EIA, serum 2022 023 [facility], [address], [place], [address], 3 10:36:56 Hepatitis C IgG Ab, qual, serum 2022 023 [facility], [address], [place], [address], 3 10:36:54 cytology report, thin prep, smear or scraping, cervical or vaginal 2022 023 [facility], [address], [place], [address], 3 13:07:39 CBC w/ auto diff 2021 022 [facility]( [facility]), [address] [place] [address] [place], [address], 2 12:15:31 CMP, serum or plasma 2021 022 [facility]( Lab), [address] [place] [address] [place], [address], 2 16:27:52 urinalysis, reflex culture 2021 [facility]( Lab), [address] [place] [address] [place], [address], 2 18:13:34 Pap smear tests - FPAR 2.0 set 2021 022 [facility], [address], [place], [address], 2 13:09:33 test, urine 2021 022 [email or web address] [place] [facility] Chair, [address] [place] [address] , [place], [address], 2 14:59:48 culture, urine 2021 022 [facility], [address], [place], [address], 2 22:07:17 urinalysis, dipstick 2021 022 [place] [facility], [address] [place] [address] , [place], [address], 09:23:09 Referral gynecologic surgery referral - lap b/l salpingecto my 2021 022 [email or web address] Not available 12:43:16 Procedures None recorded. Surgeries None recorded. Imaging None recorded. Medication Orders Prelief 65 mg tablet 2021 022 [email or web address] [facility] - [address], [place], [address], 13:08:44 Patient TargetsNo targets recorded. Patient Instructions Encounter Date Encounter Id Patient Instructions Last Modified By Organization Details Last Modified Time 09/24/2021 [id number] Increase fluids Avoid soda and tea Will send urine for culture and call with results. If urine culture is positive, will call in an antibiotic. [email or web address] Not available 09/24/2021 10:24:55 01/12/2022 [id number] Interstitial cystitis questionnaire given and score positive for IC. Discussed IC care guide as well as first line treatments including dietary changes and OTC prelief. Rx prelief given Pap obtained Will sign sterilization paperwork and RTO for preop for lap b/l salpingectomy. 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 Will housing counselor on PNV at next visit -Depression screening: PHQ 9 negative -Family Hx: Mother with hx of cervical cancer and leiomyoma Vaginal pain/pelvic pain/dysuapreunia: will get ER records. Pt reports enlarged mesentry. Will get CT scan results. Return for pelvic US Brienbessy deisres excision of sebaceous cysts from her vulva. Will perform this as well upon return [email or web address] Not available 07/29/2022 13:27:23 01/05/2023 [id number] Given post-coita l bleeding and hx of cervical dysplasia, pap collected, but also recommended colpo and she agrees. Given AUB, check labs and return for US. 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, Encounter Date: 01/12/2022 Results Created Date Observation Date Name Description Value Unit Range Abnormal Flag Note LastModifiedBy Organization Detail LastModifiedTime 09/10/19 22 09/10/2021 rapid strep group A, throa t Strep negati ve Not Available [address] , [place], [address], 09/10/2021 15:09:41 09/25/19 22 09/25/2021 URINE CULTU REEVIN NE urine culture, routine Final report Not Available [facility] ([facility]) [address] [place], [address], 09/25/2021 22:07:17 09/25/19 22 09/25/2021 URINE CULTU REEVIN NE result 1 No growth Not Available [facility] ([facility]) [address] [place], [address], 09/25/2021 22:07:17 09/25/19 22 09/24/2021 urina lysis , dipst ick Leukocytes Modera te Not Available [facility] Chair [address] [place] [address] , [place], [address], 09/24/2021 09:11:16 09/25/19 22 09/24/2021 urina lysis , dipst ick Nitrite negati ve Not Available [facility] Chair [address] [place] [address] , [place], [address], 09/24/2021 09:11:16 09/25/19 22 09/24/2021 urina lysis , dipst ick Urobilinogen .2 Not Available [facility] Physical Education Department Chair [address] [place] [address] , [place], [address], 09/24/2021 09:11:16 09/25/19 22 09/24/2021 urina lysis , dipst ick Protein Negati ve Not Available [facility] [address] [place] [address] , [place], [address], 09/24/2021 09:11:16 09/25/19 22 09/24/2021 urina lysis , dipst ick pH 6.5 Not Available [facility]/[address] , [place], [address], 09/24/2021 09:11:16 09/25/19 22 09/24/2021 urina lysis , dipst ick Blood Modera te Not Available [facility]/[address] , [place], [address], 09/24/2021 09:11:16 09/25/19 22 09/24/2021 urina lysis , dipst ick Specific [place] 1.030 Not Available [facility] lle Physical Education Department Chair [address] [place] [address] , [place], [address], 09/24/2021 09:11:16 09/25/19 22 09/24/2021 urina lysis , dipst ick Ketone Negati ve Not Available [facility] [address] [place] [address] , [place], [address], 09/24/2021 09:11:16 09/25/19 22 09/24/2021 urina lysis , dipst ick Bilirubin Negati ve Not Available [facility] [address] [place] [address] , [place], [address], 09/24/2021 09:11:16 09/25/19 22 09/24/2021 urina lysis , dipst ick Glucose Negati ve Not Available [facility] Chair [address] [place] [address] , [place], [address], 09/24/2021 09:11:16 09/25/19 22 09/24/2021 urina lysis , dipst ick Appearance Slight ly Cloudy Not Available [facility] Chair [address] [place] [address] , [place], [address], 09/24/2021 09:11:16 09/25/19 22 09/24/2021 urina lysis , dipst ick Color Yellow Not Available [facility] Chair [address] [place] [address] , [place], [address], 09/24/2021 09:11:16 01/13/20 22 01/14/2022 IGP,R FX APTIM A HPV ALL PTH diagnosis: Commen t NEGAT BALBINA FOR INTRA EPITH ELIAL LESIO N OR MAGGIE SMITH . PREDO RANDA CE OF [place] BACIL LI CONSI STENT WITH SHIFT IN VAGIN AL ARSLAN IS PRESE NT. Not Available [facility] ([facility]) [address] [facility], [place], [address], 01/14/2022 13:09:33 01/13/20 22 01/14/2022 IGP,R FX APTIM A HPV ALL PTH specimen adequacy: Commen t Satis facto ry for evalu ation . Endoc ervic al and/o r squam ous metap lasti c cells (endo cervi kim compo nent) are prese nt. Not Available [facility] ([facility]) [address] [facility], [place], [address], 01/14/2022 13:09:33 01/13/20 22 01/14/2022 IGP,R FX APTIM A HPV ALL PTH clinician provided ICD10: Commen t R87.6 19 Not Available [facility] ([facility]) [address] [place], [address], 01/14/2022 13:09:33 01/13/20 22 01/14/2022 IGP,R FX APTIM A HPV ALL PTH performed by: Alejandro Huston Not Available [facility] ([facility]) [address] [place], [address], 01/14/2022 13:09:33 01/13/20 22 01/14/2022 IGP,R FX APTIM A HPV ALL PTH . . Not Available [facility] ([facility]) [address] [place], [address], 01/14/2022 13:09:33 01/13/20 22 01/14/2022 IGP,R FX [...] ts do occur . Not Available [facility] ([facility]) [address] [place], [address], 01/14/2022 13:09:33 01/13/20 22 01/14/2022 IGP,R FX APTIM A HPV ALL PTH test methodology: Monae aldana This liqui d based ThinP rep(R ) pap test was scree vahe with the use of an image guide anatoliy gill. Not Available [facility] ([facility]) [address] [place], [address], 01/14/2022 13:09:33 01/13/20 22 01/14/2022 IGP,R FX APTIM A HPV ALL PTH . Commen t The HPV DNA refle x crite matthias were not met with this speci men resul t there fore, no HPV testi ng was perfo rmed. Not Available [facility] ([facility]) [address] [facility], [place], [address], 01/14/2022 13:09:33 01/13/20 22 01/12/2022 pregn arminda test, urine HCG negati ve Not Available [place] [facility] Chair [address] [facility] , [place], [address], 01/12/2022 14:37:35 02/10/20 22 02/09/2022 CBC W/AUT O DIFFE RENTI AL note See Note Order ing Provi tata: Yolanda Ch (Appl eton) Not Available [address] , [place], [address], 02/09/2022 14:27:37 02/10/20 22 02/09/2022 CBC W/AUT O DIFFE RENTI AL white blood cell 8.4 10e3/ uL 4.5-13 .0 normal Not Available [address] [place], [place], [address], 02/09/2022 14:27:37 02/10/20 22 02/09/2022 CBC W/AUT O DIFFE RENTI AL red blood cell 4.27 10e6/ uL 3.80-5 .10 normal Not Available [address] [place], [address], 02/09/2022 14:27:37 02/10/20 22 02/09/2022 CBC W/AUT O DIFFE RENTI AL hemoglobin 12.8 g/dL 11.5-1 5.3 normal Not Available [address] , [place], [address], 02/09/2022 14:27:37 02/10/20 22 02/09/2022 CBC W/AUT O DIFFE RENTI AL hematocrit 38.6 % 34.0-4 6.0 normal Not Available [address] [place], [place], [address], 02/09/2022 14:27:37 02/10/20 22 02/09/2022 CBC W/AUT O DIFFE RENTI AL mean cell volume 90 fL 78.0-9 8.0 normal Not Available [address] [place], [place], [address], 02/09/2022 14:27:37 02/10/20 22 02/09/2022 CBC W/AUT O DIFFE RENTI AL mean cell HGB 30.0 pg 25.0-3 5.0 normal Not Available [address] [place], [place], [address], 02/09/2022 14:27:37 02/10/20 22 02/09/2022 CBC W/AUT O DIFFE RENTI AL mean cell HGB concentratio n 33.2 g/dL 31.0-3 6.0 normal Not Available [address] [place], [place], [address], 02/09/2022 14:27:37 02/10/20 22 02/09/2022 CBC W/AUT O DIFFE RENTI AL red cell distribution width 13.3 % 11.0-1 5.0 normal Not Available [address] [place], [place], [address], 02/09/2022 14:27:37 02/10/20 22 02/09/2022 CBC W/AUT O DIFFE RENTI AL platelet count 223 10e3/ uL 150-40 0 normal Not Available [address] [place], [place], [address], 02/09/2022 14:27:37 02/10/20 22 02/09/2022 CBC W/AUT O DIFFE RENTI AL immature granulocyte % 0 0-1 normal Not Available [address] , [place], [address], 02/09/2022 14:27:37 02/10/20 22 02/09/2022 CBC W/AUT O DIFFE RENTI AL neutrophil % 71 % 35-75 normal Not Available [address] , [place], [address], 02/09/2022 14:27:37 02/10/20 22 02/09/2022 CBC W/AUT O DIFFE RENTI AL lymphocyte % 23 % 10-50 normal Not Available [address] , [place], [address], 02/09/2022 14:27:37 02/10/20 22 02/09/2022 CBC W/AUT O DIFFE RENTI AL monocyte % 6 % 0-15 normal Not Available [address] , [place], [address], 02/09/2022 14:27:37 02/10/20 22 02/09/2022 CBC W/AUT O DIFFE RENTI AL eosinophil % 0 % 0-5 normal Not Available [address] [place], [place], [address], 02/09/2022 14:27:37 02/10/20 22 02/09/2022 CBC W/AUT O DIFFE RENTI AL basophil % 0 % 0-5 normal Not Available [address] , [place], [address], 02/09/2022 14:27:37 02/10/20 22 02/09/2022 CBC W/AUT O DIFFE RENTI AL immature granulocyte # 0.02 x1000 /uL 0-0.05 normal Not Available [address] , [place], [address], 02/09/2022 14:27:37 02/10/20 22 02/09/2022 CBC W/AUT O DIFFE RENTI AL neutrophil # 5.90 x1000 /uL 1.50-8 .00 normal Not Available [address] , [place], [address], 02/09/2022 14:27:37 02/10/20 22 02/09/2022 CBC W/AUT O DIFFE RENTI AL lymphocyte # 1.92 x1000 /uL 1.20-5 .20 normal Not Available [address] , [place], [address], 02/09/2022 14:27:37 02/10/20 22 02/09/2022 CBC W/AUT O DIFFE RENTI AL monocyte # 0.49 x1000 /uL 0.40-0 .90 normal Not Available [address] [place], [place], [address], 02/09/2022 14:27:37 02/10/20 22 02/09/2022 CBC W/AUT O DIFFE RENTI AL eosinophil # 0.02 x1000 /uL 0.00-0 .50 normal Not Available [address] [place], [place], [address], 02/09/2022 14:27:37 02/10/20 22 02/09/2022 CBC W/AUT O DIFFE RENTI AL basophil # 0.02 x1000 /uL 0.00-0 .30 normal Not Available [address] , [place], [address], 02/09/2022 14:27:37 02/10/20 22 02/09/2022 CBC W/AUT O DIFFE RENTI AL NRBC automated 0.0 /100_ WBC Not Available [address] , [place], [address], 02/09/2022 14:27:37 02/10/20 22 02/09/2022 CBC W/AUT O DIFFE SIMÓN VOGT performing lab see note ML - [facility] [address] [facility] [id number] Not Available [address] , [place], [address], 02/09/2022 14:27:37 02/10/20 22 02/09/2022 COMP METAB OLIC PANEL note See Note Order ing Provi tata: Yolanda Ch (Appl eton) Not Available [address] , [place], [address], 02/09/2022 14:41:10 02/10/20 22 02/09/2022 COMP METAB OLIC PANEL sodium 138 mmol/ L 136-14 5 normal Not Available [address] , [place], [address], 02/09/2022 14:41:10 02/10/20 22 02/09/2022 COMP METAB OLIC PANEL potassium 4.1 mmol/ L 3.5-5. 1 normal Not Available [address] , [place], [address], 02/09/2022 14:41:10 02/10/20 22 02/09/2022 COMP METAB OLIC PANEL chloride 103 mmol/ L 98-107 normal Not Available [address] , [place], [address], 02/09/2022 14:41:10 02/10/20 22 02/09/2022 COMP METAB OLIC PANEL carbon dioxide 26 mmol/ L 24-33 normal Not Available [address] , [place], [address], 02/09/2022 14:41:10 02/10/20 22 02/09/2022 COMP METAB OLIC PANEL anion gap 13.1 mmol/ L 10-20 normal Not Available [address] , [place], [address], 02/09/2022 14:41:10 02/10/20 22 02/09/2022 COMP METAB OLIC PANEL glucose 86 mg/dL 70-99 normal Not Available [address] [place], [place], [address], 02/09/2022 14:41:10 02/10/20 22 02/09/2022 COMP METAB OLIC PANEL blood urea nitrogen 12 mg/dL 7-18 normal Not Available [address] , [place], [address], 02/09/2022 14:41:10 02/10/20 22 02/09/2022 COMP METAB OLIC PANEL creatinine 1.06 mg/dL 0.55-1 .02 high Not Available [address] [place], [place], [address], 02/09/2022 14:41:10 02/10/20 22 02/09/2022 COMP METAB OLIC PANEL BUN/creatini ne ratio 11 12-20 low Not Available [address] [place], [place], [address], 02/09/2022 14:41:10 02/10/20 22 02/09/2022 COMP METAB OLIC PANEL total protein 7.8 g/dL 6.4-8. 2 normal Not Available [address] , [place], [address], 02/09/2022 14:41:10 02/10/20 22 02/09/2022 COMP METAB OLIC PANEL albumin 4.0 g/dL 3.4-5. 0 normal Not Available [address] [place], [address], 02/09/2022 14:41:10 02/10/20 22 02/09/2022 COMP METAB OLIC PANEL globulin 3.8 g/dL 1.5-4. 0 normal Not Available [address] [place], [address], 02/09/2022 14:41:10 02/10/20 22 02/09/2022 COMP METAB OLIC PANEL albumin/glob ulin ratio 1.1 0.5-2. 0 normal Not Available [address] [place], [address], 02/09/2022 14:41:10 02/10/20 22 02/09/2022 COMP METAB OLIC PANEL calcium 9.4 mg/dL 8.5-10 .1 normal Not Available [address] , [place], [address], 02/09/2022 14:41:10 02/10/20 22 02/09/2022 COMP METAB OLIC PANEL osmolality serum calculated 274 mOsm/ kg 272-28 8 normal Not Available [address] [place], [address], 02/09/2022 14:41:10 02/10/20 22 02/09/2022 COMP METAB OLIC PANEL glom filtr rate (estimated) > 60 mL/mi n >60 normal Not Available [address] [place], [address], 02/09/2022 14:41:10 02/10/20 22 02/09/2022 COMP METAB OLIC PANEL GFR est (if -amer ican) > 60 mL/mi n >60 normal Not Available [address] [place], [address], 02/09/2022 14:41:10 02/10/20 22 02/09/2022 COMP METAB OLIC PANEL bilirubin total 0.4 mg/dL 0.2-1. 0 normal Use of this assay is not recom maxim d for patie nts under going treat ment with Eltro mbopa g due to the poten tial for false ly eleva idris resul ts. Not Available [address] , [place], [address], 02/09/2022 14:41:10 02/10/20 22 02/09/2022 COMP METAB OLIC PANEL SGOT/AST 12 U/L 15-37 low Not Available [address] [place], [address], 02/09/2022 14:41:10 02/10/20 22 02/09/2022 COMP METAB OLIC PANEL SGPT/ALT 18 U/L 14-59 normal Not Available [address] , [place], [address], 02/09/2022 14:41:10 02/10/20 22 02/09/2022 COMP METAB OLIC PANEL alkaline phosphatase total 35 U/L 46-116 low Not Available [address] , [place], [address], 02/09/2022 14:41:10 02/10/20 22 02/09/2022 COMP METAB OLIC PANEL performing lab see note - [facility] R [address] [facility] [address] Not Available [address] [place], [address], 02/09/2022 14:41:10 02/10/20 22 02/09/2022 URINA LYSIS COMPL ETE note See Note Order ing Provi tata: Yolanda Ch (Appl eton) Not Available [address] [place], [address], 02/09/2022 14:42:16 02/10/20 22 02/09/2022 URINA LYSIS COMPL ETE UA method of collection CLEAN CATCH Not Available [address] [place], [place], [address], 02/09/2022 14:42:16 02/10/20 22 02/09/2022 URINA LYSIS COMPL ETE UA color LT YELLOW yellow Not Available [address] , [place], [address], 02/09/2022 14:42:16 02/10/20 22 02/09/2022 URINA LYSIS COMPL ETE UA appearance SL.MICHELE UDY clear Not Available [address] , [place], [address], 02/09/2022 14:42:16 02/10/20 22 02/09/2022 URINA LYSIS COMPL ETE UA glucose dipstick NEGATI VE negati ve Not Available [address] [place], [place], [address], 02/09/2022 14:42:16 02/10/20 22 02/09/2022 URINA LYSIS COMPL ETE UA bilirubin dipstick NEGATI VE negati ve Not Available [address] [place], [place], [address], 02/09/2022 14:42:16 02/10/20 22 02/09/2022 URINA LYSIS COMPL ETE UA ketone dipstick NEGATI VE negati ve Not Available [address] [place], [address], 02/09/2022 14:42:16 02/10/20 22 02/09/2022 URINA LYSIS COMPL ETE UA specific gravity 1.010 1.005- 1.030 normal Not Available [address] [place], [address], 02/09/2022 14:42:16 02/10/20 22 02/09/2022 URINA LYSIS COMPL ETE UA blood dipstick 3+ negati ve abnormal Not Available [address] [place], [address], 02/09/2022 14:42:16 02/10/20 22 02/09/2022 URINA LYSIS COMPL ETE UA pH dipstick 7.0 5.0-9. 0 normal Not Available [address] [place], [address], 02/09/2022 14:42:16 02/10/20 22 02/09/2022 URINA LYSIS COMPL ETE UA protein dipstick NEGATI VE negati ve Not Available [address] [place], [address], 02/09/2022 14:42:16 02/10/20 22 02/09/2022 URINA LYSIS COMPL ETE UA urobilinogen dipstick NEGATI VE mg/dL <1 Not Available [address] , [place], [address], 02/09/2022 14:42:16 02/10/20 22 02/09/2022 URINA LYSIS COMPL ETE UA nitrite dipstick NEGATI VE negati ve Not Available [address] [place], [address], 02/09/2022 14:42:16 02/10/20 22 02/09/2022 URINA LYSIS COMPL ETE UA leukocyte esterase dipstick 2+ negati ve abnormal Not Available [address] [place], [address], 02/09/2022 14:42:16 02/10/20 22 02/09/2022 URINA LYSIS COMPL ETE UA RBC 0-5 RBC/h pf none seen abnormal Not Available [address] , [place], [address], 02/09/2022 14:42:16 02/10/20 22 02/09/2022 URINA LYSIS COMPL ETE UA WBC 0-5 WBC/h pf 0-5 Not Available [address] , [place], [address], 02/09/2022 14:42:16 02/10/20 22 02/09/2022 URINA LYSIS COMPL ETE UA epithelial cells 21-30 SQUAMO US epi/h pf 0-5 abnormal Not Available [address] , [place], [address], 02/09/2022 14:42:16 02/10/20 22 02/09/2022 URINA LYSIS COMPL ETE UA bacteria 1+ none seen abnormal Not Available [address] , [place], [address], 02/09/2022 14:42:16 02/10/20 22 02/09/2022 URINA LYSIS COMPL ETE UA mucus NONE SEEN none seen Not Available [address] , [place], [address], 02/09/2022 14:42:16 02/10/20 22 02/09/2022 URINA LYSIS COMPL ETE UA amorphous sediment NONE SEEN none seen Not Available [address] , [place], [address], 02/09/2022 14:42:16 02/10/20 22 02/09/2022 URINA LYSIS COMPL ETE comment 1 >20 EPI'S No Cultu re Perfo rmed. Speci men faile d Refle x Cultu re Crite matthias. Not Available [address] [place], [address], 02/09/2022 14:42:16 02/10/20 22 02/09/2022 URINA LYSIS COMPL ETE performing lab see note - [facility] R [address] [facility] [address] Not Available [facility] [address], [place], [address], 02/09/2022 14:42:16 07/20/19 23 07/23/2022 IGP, APTIM A HPV, RFX 16/18 ,45 HPV aptima Negati ve negati ve This nucle ic acid ampli ficat ion test detec ts fourt een high- risk HPV types (16,1 8,31, 33,35 ,39,4 5,51, 52,56 ,58,5 9,66, 68) witho ut diffe renti ation . Not Available [facility] (Lab) [address] [address], [place], [address], 07/25/2022 13:07:39 07/20/19 23 07/25/2022 IGP, APTIM A HPV, RFX 16/18 ,45 diagnosis: Commen t NEGAT BALBINA FOR INTRA EPITH ELIAL LESIO N OR MAGGIE SMITH . PREDO MINAN CE OF [place] BACIL LI CONSI STENT WITH SHIFT IN VAGIN AL ARSLAN IS PRESE NT. Not Available [facility] (Lab) [address] [address], [place], [address], 07/25/2022 13:07:39 07/20/19 23 07/25/2022 IGP, APTIM A HPV, RFX 16/18 ,45 specimen adequacy: Commen t Satis facto ry for evalu ation . No endoc ervic al compo nent is ident ified . Not Available [facility] (Lab) [address] [facility] [address], [place], [address], 07/25/2022 13:07:39 07/20/19 23 07/25/2022 IGP, APTIM A HPV, RFX 16/18 ,45 clinician provided ICD10: Monae aldana Z12.4 Not Available [facility] (Lab) [id number] [place] [address], [place], [address], 07/25/2022 13:07:39 07/20/19 23 07/25/2022 IGP, APTIM A HPV, RFX 16/18 ,45 performed by: Monae Garcia Sr, Cytojovan aldana (ASCP ) Not Available [facility] (Lab) [address] [address], [place], [address], 07/25/2022 13:07:39 07/20/19 23 07/25/2022 IGP, APTIM A HPV, RFX 16/18 ,45 . . Not Available [facility] ([facility]) [id number] [place] [address], [place], [address], 07/25/2022 13:07:39 07/20/19 23 07/25/2022 IGP, APTIM [...] Not Available [facility] ([facility]) [address] [address], [place], [address], 07/25/2022 13:07:39 07/20/19 23 07/25/2022 IGP, APTIM A HPV, RFX 16/18 ,45 test methodology: Monae aldana This liqui d based ThinP rep(R ) pap test was scree vahe with the use of an image guide anatoliy lance Not Available [facility] ([facility]) [id number] [place] [address], [place], [address], 07/25/2022 13:07:39 07/20/19 23 07/25/2022 IGP, APTIM A HPV, RFX 16/18 ,45 HPV genotype reflex Commen t Crite matthias not met, HPV Genot ype not perfo rmed. Not Available [facility] ([facility]) [address], [place], [address], 07/25/2022 13:07:39 01/06/20 23 01/06/2023 NUSWA B VAGIN ITIS PLUS (VG+) atopobium vaginae Low - 0 score Not Available [facility] ([facility]) [address] [place], [address], 01/11/2023 10:36:49 01/06/20 23 01/06/2023 NUSWA B VAGIN ITIS PLUS (VG+) bvab 2 Modera te - 1 score Not Available [facility] ([facility]) [address] [facility], [place], [address], 01/11/2023 10:36:49 01/06/20 23 01/06/2023 NUSWA B [...] Drug Admin istra tion. Not Available [facility] ([facility]) [address] [place], [address], 01/11/2023 10:36:49 01/06/20 23 01/06/2023 NUSWA B VAGIN ITIS PLUS (VG+) bisi albicans, AVIVA Negati ve negati ve Not Available [facility] ([facility]) [address] [facility], [place], [address], 01/11/2023 10:36:49 01/06/20 23 01/06/2023 NUSWA B VAGIN ITIS PLUS (VG+) bisi glabrata, AVIVA Negati ve negati ve Not Available [facility] ([facility]) [address] [facility], [place], [address], 01/11/2023 10:36:49 01/06/20 23 01/06/2023 NUA B VAGIN ITIS PLUS (VG+) trich vag by AVIVA Negati ve negati ve Not Available [facility] ([facility]) [address] [facility], [place], [address], 01/11/2023 10:36:49 01/06/20 23 01/06/2023 NUSWA B VAGIN ITIS PLUS (VG+) chlamydia trachomatis, AVIVA Negati ve negati ve Not Available [facility] ([facility]) [address] [facility], [place], [address], 01/11/2023 10:36:49 01/06/20 23 01/06/2023 NUSWA B VAGIN ITIS PLUS (VG+) neisseria gonorrhoeae, AVIVA Negati ve negati ve Not Available [facility] ([facility]) [address] [place], [address], 01/11/2023 10:36:49 01/06/20 23 01/06/2023 TSH+F REE T4 TSH 0.400 uIU/m L 0.450- 4.500 below low normal Not Available [facility] ([facility]) [address] [place], [address], 01/11/2023 10:36:51 01/06/20 23 01/06/2023 TSH+F REE T4 T4,free(dire ct) 1.17 NG/dL 0.82-1 .77 Not Available [facility] ([facility]) [address] [place], [address], 01/11/2023 10:36:51 01/06/20 23 01/06/2023 TESTO STERO NE,FR EE AND TOTAL testosterone 46 NG/dL 13- Not Available [facility] ([facility]) [address] [facility], [place], [address], 01/11/2023 10:36:51 01/06/2001/11/2023 TESTO STERO NE,FR EE AND TOTAL free testosterone (direct) 1.0 pg/mL 0.0-4. 2 Not Available [facility] ([facility]) [address] [facility], [place], [address], 01/11/2023 10:36:51 01/06/20 23 01/06/2023 HIV AB/P2 4 AG WITH REFLE X HIV Ab/P24 Ag screen Non Reacti ve non reacti ve HIV Negat balbina HIV-1 /HIV- 2 antib odies and HIV-1 p24 antig en were NOT detec idris. There is no labor atory evide nce of HIV infec tion. Not Available [facility] ([facility]) [address] [facility], [place], [address], 01/11/2023 10:36:52 01/06/20 23 01/06/2023 RPR, RFX QN RPR/C ONFIR M TP RPR Non Reacti ve non reacti ve Not Available [facility] ([facility]) [address] [facility], [place], [address], 01/11/2023 10:36:53 01/06/20 23 01/06/2023 HCV ANTIB [...] e HCV infec tion. Not Available [facility] ([facility]) [address] [facility], [place], [address], 01/11/2023 10:36:54 01/06/20 23 01/06/2023 HEMOG LOBIN A1C hemoglobin A1C 4.7 % 4.8-5. 6 below low normal Predi abete s: 5.7 - 6.4 Diabe danilo: >6.4 Glyce morena contr ol for adult s with diabe danilo: <7.0 Not Available [facility] ([facility]) [address] [facility], [place], [address], 01/11/2023 10:36:55 01/06/2001/06/2023 HBSAG SCREE N HBsAg screen Negati ve negati ve Not Available [facility] ([facility]) [address] [facility], [place], [address], 01/11/2023 10:36:56 01/07/2001/06/2023 IGP, APTIM A HPV, RFX 16/18 ,45 HPV aptima Negati ve negati ve This nucle ic acid ampli ficat ion test detec ts fourt een high- risk HPV types (16,1 8,31, 33,35 ,39,4 5,51, 52,56 ,58,5 9,66, 68) witho ut diffe renti ation . Not Available [facility] ([facility]) [address] [facility], [place], [address], 01/07/2023 12:13:17 01/07/20 23 01/07/2023 IGP, APTIM A HPV, RFX 16/18 ,45 diagnosis: Commen t NEGAT BALBINA FOR INTRA EPITH ELIAL LESIO N OR MALIG LUIS . SPECI MEN REPRO CESSE D FOR INTER PRETA TION USING GLACI AL ACETI C ACID (GAA) . Not Available [facility] ([facility]) [address] [place], [address], 01/07/2023 12:13:17 01/07/20 23 01/07/2023 IGP, APTIM A HPV, RFX 16/18 ,45 specimen adequacy: Monae aldana Satis facto ry for evalu ation . Endoc ervic al and/o r squam ous metap lasti c cells (endo cervi kim compo nent) are prese nt. Areas of parti ally obscu ring blood are prese nt. Not Available [facility] ([facility]) [address] [place], [address], 01/07/2023 12:13:17 01/07/2001/07/2023 IGP, APTIM A HPV, RFX 16/18 ,45 clinician provided ICD10: Monae aldana Z11.3 N93.9 N93.0 Not Available [facility] ([facility]) [address] [place], [address], 01/07/2023 12:13:17 01/07/20 23 01/07/2023 IGP, APTIM A HPV, RFX 16/18 ,45 performed by: Monae jesus, Cytot stefany aldana (ASCP ) Not Available [facility] ([facility]) [address] [place], [address], 01/07/2023 12:13:17 01/07/2001/07/2023 IGP, APTIM A HPV, RFX 16/18 ,45 . . Not Available [facility] ([facility]) [address] [place], [address], 01/07/2023 12:13:17 01/07/20 23 01/07/2023 IGP, APTIM [...] ts do occur . Not Available [facility] ([facility]) [address] [facility], [place], [address], 01/07/2023 12:13:17 01/07/20 23 01/07/2023 IGP, APTIM A HPV, RFX 16/18 ,45 test methodology: Remaen t This liqui d based ThinP rep(R ) pap test was scree vahe with the use of an image guide anatoliy gill. Not Available [facility] ([facility]) [address] [facility], [place], [address], 01/07/2023 12:13:17 01/07/20 23 01/07/2023 IGP, APTIM A HPV, RFX 16/18 ,45 HPV genotype reflex Commen t Crite matthias not met, HPV Genot ype not perfo rmed. Not Available [facility] ([facility]) [address] [place], [address], 01/07/2023 12:13:17 01/10/20 23 01/09/2023 pregn arminda test, urine HCG negati ve Not Available [facility] [address] [facility] , [place], [address], 01/09/2023 16:30:54 10/17/19 22 10/16/2021 CT, abdom en + pelvi s, w/o contr ast No observ ation record ed. [email or web address] [facility] [address], [place], [place], [address], 10/18/2021 23:08:20 11/22/19 22 11/21/2021 XR, chest , 2 view No observ ation record ed. [address], [place], [address], 11/25/2021 11:38:59 11/22/19 22 11/21/2021 imagi ng/di agnos tic resul t No observ ation record ed. [address], [place], [address], 11/25/2021 11:38:47 Result Notes None recorded. Problems Name Problem SNOMED Code Status Onset Date Resolution Date Notes Provider Name and Address Organization Details Recorded Time Anemia of pregnanc y 82695902 Completed 09/25/2019 Removal Reason: resolved Zainab Ch MD [address], [place], [address] , [place] [facility] 17:43:51 Body mass index 30+ - obesity 775675479 Completed 201709/24/2021 Araseli Mills APRN [address], [place], [address] , [place] [facility] 10:23:33 Polycyst ic ovaries Active 2017 Amelie [place] null, [place] - [facility] 13:09:23 Oligomen orrhea 12818686 Completed 201708/16/2021 Zainab Ch MD [address], [place], [address] , [place] [facility] 19:31:58 Abnormal uterine bleeding 72079513598 100 Completed 201708/16/2021 Zainab Ch MD [address], [place], [address] , [place] [facility] 19:31:46 Hidraden itis 03559609 Active 2017 Amelie [place] null[place] [facility] 13:09:13 Pelvic floor dysfunct ion 998694285 Active 2018 Amelie [place] [facility] 13:09:18 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 a 231386567 Active 2019 Amelie [place] [facility] 13:08:57 History of SARS-CoV -2 41658229328 2472015 Completed 202010/01/2020 Bibi Gordon null, [place] [facility] 11:37:52 [facility] l hyperten morelia 80721866 Active 2020 Amelie [place] [facility] 13:09:07 Migraine 10607800 Active 2020 Amelie [place] [facility] 13:09:17 Gastroes ophageal reflux disease 679730258 Active 2020 Amelie [place] [facility] 13:09:11 Chronic constipa tion 905656061 Active 2020 Amelie [place] [facility] 13:09:01 Dysuria 35429268 Active 2021 Amelie [place] [facility] 13:09:03 Body mass index 40+ - severely obese 024482038 Active 2021 Amelie [place] [facility] 13:08:55 Morbid obesity 185733016 Active 2022 Ag Crouch RN [address], [place], [address] , [place] [facility] 14:17:15 Problem Notes None recorded. Procedures Surgical History Date Name Laterality Status Provider Name and Address Organization Details Recorded Time 03/08/20 Colposcopy cancelled Amelie Mayfield [place] - [facility] 01/27/20 09:08:30 01/06/20 Date of Last Pap Smear completed Zainab Ch MD [address], [place], [address], [place] [facility] 10/30/2023 19:57:44 01/27/20 Colposcopy completed Zainab Ch MD [address], [place], [address], [place] [facility] 2021 20:07:34 01/27/20 21 Colposcopy completed Araseli Mills APRN [address], [place], [address], [place] [facility] 09/24/2021 09:21:24 01/27/20 21 Colposcopy completed Fatuma Tsai [place] [facility] 01/11/2022 10:21:09 07/18/19 21 Date of Last Colonoscopy completed Monica Vásquez [place] - [facility] 08/12/2021 14:09:13 09/11/19 20 LEEP Procedure completed Zainab Ch MD [address], [place], [address], [place] [facility] 09/11/2019 16:00:11 09/11/19 20 LEEP completed Fatuma Quin [place] [facility] 01/11/2022 10:19:42 07/27/19 20 Colposcopy completed Fatuma Quin [place] [facility] 01/11/2022 10:20:00 extraction of [...] Name and Address Organization Details Recorded Time 538102 Reglan medicatio n other moderate Not available [...] Updated DateTime 07/20/2022 167.64 cm 40.8 kg/m2 952082.8 7 g 116 mm[Hg] 72 mm[Hg] Monica Vásquez [place] - [facility] 16:34:38 Date Recorded Body height Body mass index (BMI) Body weight Systolic blood pressure Diastolic blood pressure Provider Name and Address Organization Details Last Updated DateTime 09/24/2021 167.64 cm 40.2 kg/m2 257145.5 g 116 mm[Hg] 78 mm[Hg] Erinjackeline Gibbons [place] - [facility] 09:12:59 Date Recorded Body height Body mass index (BMI) Body weight Systolic blood pressure Diastolic blood pressure Provider Name and Address Organization Details Last Updated DateTime 01/05/2023 167.64 cm 40 kg/m2 615600.9 1 g 118 mm[Hg] 82 mm[Hg] Ameliemau May[place] [facility] 14:16:13 Date Recorded Body height Body mass index (BMI) Body weight Systolic blood pressure Diastolic blood pressure Provider Name and Address Organization Details Last Updated DateTime 01/12/2022 167.64 cm 40.2 kg/m2 430399.5 g 104 mm[Hg] 62 mm[Hg] Erin Gibbons [place] - [facility] 14:34:42 Date Recorded Body height Body mass index (BMI) Body weight Systolic blood pressure Diastolic blood pressure Provider Name and Address Organization Details Last Updated DateTime 02/09/2022 167.64 cm 39.1 kg/m2 642251.3 5 g 126 mm[Hg] 78 mm[Hg] Ameliemau Mayfield [place] - [facility] 13:07:43 Social History Question Answer Notes LastModified by Organizat ion Details LastModified Time Tobacco Smoking Status Former Smoker Monica wil[place], [place] - [facility] 07/20/2022 16:27:52 Able To Swim? Yes [...] COVID-19 While That Case Was Ill? No Information not available 02/09/2022 In The 14 Days Before Symptom Onset, Have You Had Close Contact With A Person Who Is Under Investigation For COVID-19 While That Person Was Ill? No [email or web address] Information not available 02/09/2022 Have You Been [...] Or The Highest Degree You Have Received? [id number] Information not available 01/30/2018 How Many Days [...] 08/12/2021 When Did You Quit Smoking? 1-5yearssincelas [email or web address] Information not available 07/20/2022 Hard Of Hearing [...] Much Tobacco Do You Smoke? 0.5 PPD [email or web address] Information not available 02/09/2022 General Stress Level [...] ? No, I Don't Want To Become Information not available 02/09/2022 What Is Your Reason For Having No Contraceptive Method At Start Of This Visit? Other Information not available 08/12/2021 Sex: Female Functional Status Question Answer Note LastModified by Organizat ion Details LastModified Time Do you or have you ever used smokeless tobacco? Never used smokeless tobacco [email or web address] Information not available 12/05/2020 Are you currently [...] not available 01/30/2018 What is your occupation? [email or web address] Information not available 07/20/2022 Mental Status Question Answer Note LastModified by Organizat ion Details LastModified Time Do you feel stressed (tense, restless, nervous, or anxious, or unable to sleep at night)? [id number] Information not available 08/12/2021 Do you have [...] Not available 2018 15:18:11 Mother Uterine leiomyoma [email or web address] Not available 2021 09:10:51 Medical History Condition Response Pancreatitis N Coronary Artery Disease N Other N Gout N Atrial Fibrillation N congenital heart disease N Blood Diseases N Kidney Stones N Hyperthyroidism N Rheumatoid arthritis N Blood Transfusion N Erectile Dysfunction N amputation N Colonoscopy N Skin Lesions N COPD N Depression N Pneumonia N Incontinence N Murmur N Edema N Alzheimer's Disease N Migraine Headaches N Tobacco Abuse N Anxiety Disorder N Muscle, Joint, or Bone Problems N Hemorrhoids N Obesity N Vision or Eye Problems N Restless Leg Syndrome N Arthritis N Infertility N Polyps N Carpal Tunnel N Mental Disorder N Acid Reflux (GERD) N Cancer N Stroke N Varicosities N Tendonitis N Crohn's Disease N Hypercholesterolemia N Skin Cancer N Fibromyalgia N Headaches N Anal Fissure N Irritable Bowel Syndrome N Kidney Disease N Heart Problems N [...] D Deficiency N Cellulitis N Endometriosis N Fracture N Bladder or Kidney Problems N Liver Disease N Panic Disorder N Schizophrenia N Concussion N Spina Bifida N Allergies/Hayfever N Osteoarthritis N Parkinson's Disease N Disc Protrusion N STI N Esophagitis N Angina N Thyroid Problems N GI Problems N ADD/ADHD N Anemia Y Multiple Sclerosis N Abnormal PAP N Lumbago N Mental Illness N Psychiatric Illness N Diabetes N Ovarian Cancer N Bedwetting N Degenerative Disc Disease N Seizures/Epilepsy N Congestive Heart Failure (CHF) N Hyperlipidemia N Syncope N Insomnia N Eczema N Abuse/Domestic Violence N Attention Deficient Disorder N Diverticulitis N Dementia N Ulcerative colitis N Cerebrovascular Disease N Depression N Guillain-Worth N Sleep Apnea N Aneurysm N Bronchitis [...] SNOMED-CT Code Diagnosis ICD10 Code Diagnosis Note [id number] Naheed Hidalgo APRN [address] [place] [id number] 09/22/2017 12:33:02 09/22/2017 12:51:30 Eustachian tube disorder 00039766 H69.90 [id number] Naheed Hidalgo APRN [address] [place] [address] 01/03/2018 08:05:15 01/03/2018 08:45:21 Hypothyroidism 96581611 E03.9 Anemia 648678266 D64.9 Vitamin D deficiency 347 94221 E55.9 [id number] MD John Blount [employer] [address] [place] [address] [place] [address] 01/30/2018 15:07:25 01/30/2018 15:58:53 Pain in pelvis 12396008 R10.2 Venereal d isease screening 071914051 Z11.3 Oligomenorrhea 06141633 N91.5 Polycystic ovaries 27776 008 E28.2 Hidradenit is suppurativa 74385533 L73.2 [id number] MD John Blount [employer] [address] [place] [address] [place] [address] 02/20/2018 13:18:56 02/20/2018 14:22:33 Oligomenorrhea 44847711 N91.5 Polycystic ovaries 44718 008 E28.2 Pain in pelvis 67734291 R10.2 [id number] MD John Blount [employer] [address] [place] [address] [place] [id number] 05/02/2018 09:02:13 05/02/2018 09:25:51 Abnormal uterine bleeding 6385559319 9100 N93.9 Oligomenorrhea 15464468 N91.5 Polycystic ovaries 80759 008 E28.2 Hidradenit is suppurativa 04356172 L73.2 [id number] Naheed Hidalgo APRN [address] [place] [address] 06/06/2018 09:51:55 06/06/2018 11:19:11 Acute bronchitis 59909743 J20.9 Cough 40946621 R05 Fatigue 41132978 R53.83 [id number] Sue Anglin APRN [address] [place] [id number] 06/28/2018 12:48:18 06/28/2018 17:16:50 Acne 32239116 L70.9 We discussed support measures.P atient provided with printed informatio n on preventati ve and support measures for acne.We discussed starting Spironolac tone and will re-evaluat e in the future. Hidradenit is suppurativa 59228427 L73.2 Patient pleased with the current control with her H.S. She believes that the surgical wash is helping a great deal and will continue use. [id number] MD John Blount [employer] [address] [place] [address] [place] [id number] 09/11/2018 13:52:08 09/11/2018 14:32:49 Abnormal uterine bleeding 4043116336 9100 N93.9 Hidradenitis 32968740 L7 3.2 Polycystic ovaries 54384 008 E28.2 Venereal d isease screening 158705307 Z11.3 [id number] MD Mere [place] [employer] [address] [place] [address] [place] [id number] 11/02/2018 13:12:35 11/02/2018 13:46:27 Vaginal discharge 330957645 N89.8 Candidiasis of vagina 72 072485 B37.3 [id number] Naheed [employer] TECHNICIAN [address] [place] [id number] 11/08/2018 14:48:45 11/08/2018 15:34:32 Fatigue 53514331 R53.83 Memory impairment 450885 006 R41.3 Dizziness and giddiness 841267078 R42 [id number] Naheed H[employer]go [employer] TECHNICIAN [address] [place] [id number] 11/21/2018 09:59:56 11/21/2018 15:29:14 Vitamin B12 deficiency (non anemic) 66930109 E53.8 Vitamin D deficiency 347 65290 E55.9 [id number] Naheed H[employer]go [employer] TECHNICIAN [address] [place] [address] 01/10/2019 16:00:28 01/10/2019 16:27:14 Acne 76326094 L70.9 Memory impairment 074191 006 R41.3 Chronic constipation 236 793650 K59.09 Food intolerance 9756133 0 K90.49 Impairment of balance 38 8164027 R26.89 Paresthesi a of lower extremity 302749191 R20.2 [id number] MD John Blount [employer] [address] [place] [address] [place] [id number] 03/14/2019 14:57:40 03/14/2019 15:48:16 Routine gynecologic examination done 7236501382 9101 Z01.419 Depression screening 171 327939 Z13.89 PHQ 9 negative Diet education 46707970 Z71.3 Counseling 826879473 Z71 .82 Exercise counseljohn nice Patient encouraged to exercise 30 minutes 5 days a week. Examinatio n of blood pressure 732170288 Z01.30 Normotensi ve Screening for malignant neoplasm of cervix 622399995 Z12.4 Pap collected Vaginal discharge 929176 006 N89.8 Pelvic ward or dysfunction 801882757 M62.9 Polycystic ovaries 48166 008 E28.2 Family his tory of breast cancer 033507719 Z80.3 [id number] MD John Blount [employer] [address] [place] [address] [place] [id number] 08/21/2019 10:53:04 08/21/2019 11:54:03 Cervical intraepithelial neoplasia grade III with severe dysplasia 627180724 D06.9 [id number] MD John Blount [employer] [address] [place] [address] [place] [id number] 09/11/2019 14:52:56 09/11/2019 15:49:37 Cervical intraepithelial neoplasia grade III with severe dysplasia 560535947 D06.9 [id number] MD John Blount [employer] [address] [place] [address] [place] [id number] 09/25/2019 13:05:49 09/25/2019 13:21:20 History of loop electrosurgical excision procedure 6693581032 9102 Z98.890 Cervical intraepithelial neoplasia grade III with severe dysplasia 940834937 D06.9 [id number] MD John Blount [employer] [address] [place] [address] [place] [address] 11/08/2019 15:58:57 11/08/2019 16:26:39 Mass of left breast 9593206186 8490243 N63.20 [id number] MD John Blount [employer] [address] [place] [address] [place] [id number] 02/20/2020 15:34:15 02/20/2020 16:34:29 Cervical intraepithelial neoplasia grade III with severe dysplasia 013392484 D06.9 Acne 83658297 L70.9 [id number] MD John Blount [employer] [address] [place] [address] [place] [address] 06/18/2020 10:30:20 06/18/2020 11:34:32 Polycystic ovary syndrome 419091852 E28.2 Trying to conceive 17305 9001 Z31.9 History of loop electrosurgical excision procedure 4362355442 9102 Z98.289 [id number] MD John Blount [employer] [address] [place] [address] [place] [id number] 09/29/2020 15:14:02 09/29/2020 16:25:12 Screening for malignant neoplasm of cervix 346638697 Z12.4 Pap collected Cervical intraepithelial neoplasia grade III with severe dysplasia 754846124 D06.9 Dyspareunia 81338883 N94 .10 Mass of left breast 1224 400343 8042286 N63.20 Family his tory of breast cancer 020811988 Z80.3 [id number] Miranda Pa APRN [address] [place] [id number] 10/01/2020 11:19:30 10/01/2020 12:03:02 Essential hypertension 70387968 I10 Advised to check BP daily at home. Follow-up in 1 month. Fatigue 44944840 R53.83 Migraine 29105910 G43.90 9 [id number] Miranda Pa APRN [address] [place] [id number] 10/17/2020 08:06:55 10/17/2020 08:38:56 Essential hypertension 33125215 I10 Advised to check BP daily at home. Follow-up in 1 month. Migraine 34545801 G43.90 9 She has not used the sumatripta n yet, only Tylenol PRN. Body mass index 30+ - obesity 050286329 Z68.38 Hidradenit is suppurativa 50957849 L73.2 [id number] Miranda Pa APRN [address] [place] [address] 11/04/2020 08:18:10 11/04/2020 09:01:54 Migraine 76865216 G43.909 Dizziness 834832186 R42 Labs previously done at last visit were normal. Blurring o f visual image 843798042 H53.8 Neck pain 09999315 M54.2 [id number] Miranda Pa APRN [address] [place] [address] 12/05/2020 08:15:03 12/05/2020 09:06:31 Edema of lower extremity 339273045 R60.0 Resolved - advised on elevation of legs, adequate hydration, reduced sodium intakes, compressio n stockings PRN. F/U if worsens. Low back pain 981018375 M54.5 Thoracic back pain 79381 8004 M54.6 Migraine 51966361 G43.90 9 Advised to F/U with Neuro as scheduled. F/U in office needed before then. [id number] Miranda Pa APRN [address] [place] [address] 12/09/2020 13:55:58 12/09/2020 14:38:24 Body mass index 30+ - obesity 382271495 Z68.39 Chest pain 54531161 R07. 9 Labs performed previously . Will refer to Cardiology today. F/U in office if symptoms worsen, or go to ER for any chest pain lasting longer than 5 minutes or increased shortness of breath. Already had recent labs October 2020 - no need for additional labs today. Palpitations 47939733 R0 0.2 [id number] MD John Blount [employer] [address] [place] [address] [place] [id number] 01/26/2021 13:12:53 01/26/2021 14:39:11 Abnormal cervical Papanicolaou smear 524737857 R87.619 Screening for malignant neoplasm of cervix 693879531 Z12.4 [id number] Zainab Ch MD [place] [employer] [address] [place] [address] [place] [address] 04/15/2021 08:58:03 04/15/2021 09:18:57 Abnormal cervical Papanicolaou smear [id number] R87.619 Vaginal discharge 032406 006 N89.8 Dyspareunia 77547298 N94 .10 [id number] Corry Sears APRN [address] [place] [address] 06/18/2021 09:38:21 06/18/2021 10:27:06 Abdominal pain 37379968 R10.9 Depression screening 171 811983 Z13.31 Gastroesop hageal reflux disease 841629807 K21.9 Chronic constipation 236 480773 K59.09 Abdominal bloating 82991 9008 R14.0 Nausea 962119906 R11.0 Body mass index 40+ - severely obese 818279611 Z68.41 [id number] MD John Blount [employer] [address] [place] [address] [place] [id number] 7 08/12/2021 13:57:13 08/12/2021 14:45:12 Routine gynecologic examination done [id number] 9101 Z01.419 Depression screening 171 274691 Z13.89 PHQ 9 negative Diet education 58791362 Z71.3 Counseling 512677111 Z71 .82 Exercise counsellin g. Patient encouraged to exercise 30 minutes 5 days a week. Examinatio n of blood pressure 991246234 Z01.30 Normotensi ve Vaccine de clined by patient 1517049940 02 Z28.21 Obesity 922837008 E66.9 Screening for malignant neoplasm of cervix 241269396 Z12.4 Hidradenit is suppurativa 62459806 L73.2 [id number] Luis Stephen, MD [address] [place] [id number] 7 09/10/2021 14:58:29 09/10/2021 15:35:57 Pharyngitis 923299443 J02.9 [id number] Araseli Mills APRN [place] [employer] [address] [place] [address] [place] [id number] 7 09/24/2021 08:40:43 09/24/2021 09:34:52 Dysuria 08106440 R30.9 Chronic constipation 236 254128 K59.09 Body mass index 40+ - severely obese 350009815 Z68.41 [id number] Alis Mays DO [place] [employer] [address] [place] [address] [place] [id number] 7 01/12/2022 14:23:40 01/12/2022 15:14:15 Irregular periods 72993498 N92.6 Sterilizat ion requested 655515556 Z30.2 Abnormal c ervical Papanicolaou smear 414223110 R87.619 Chronic in terstitial cystitis 520245166 N30.10 [id number] Zainab Ch MD [place] [employer] [address] [place] [address] [place] [address] 7 02/09/2022 13:00:30 02/09/2022 13:30:25 Pre-surgery evaluation 164916111 Z01.818 Sterilizat ion requested 710120637 Z30.2 Contracept ion care management 167146291 Z30.9 Condyloma acuminata of vulva 918583004 A63.0 [id number] MD Mere [place] [employer] [address] [place] [address] [place] [id number] 7 07/20/2022 16:00:19 07/20/2022 17:05:27 Routine gynecologic examination done 8941565746 9101 Z01.419 Depression screening 171 833301 Z13.89 PHQ 9 negative Examinatio n of blood pressure 455652145 Z01.30 Normotensi ve Body mass index 40+ - severely obese 826471717 Z68.41 Screening for malignant neoplasm of cervix 490857113 Z12.4 Vaginal pain 64078025 R1 0.2 Dyspareunia 68859492 N94 .10 Sebaceous cyst of skin 929138056 L72.3 [id number] MD John Blount [employer] SH[employer]ER [address] [facility] [place] [id number] 01/05/2023 13:55:12 01/05/2023 14:44:41 Venereal disease screening 139715046 Z11.3 Postcoital bleeding 4888 0000 N93.0 Abnormal u terine bleeding 7757085851 9100 N93.9 Health Concerns Section Related Observation LastModified by Organization Detai ls LastModified Time None Recorded Concern Status LastModified by Organization Details LastModified Time None Recorded Advance Directives Directive N: Payers Insurance Date Sequence Insurance Name Policy Number Policy Mai Covered Member ID Mai Member ID Guarantor Name 04/23/2023 [place] [facility] [place]ID[place] Araceli Gill [place] [id number] Katy Gill [place] 01/12/2022 1 [employer] [facility] (MEDICAID HMO) Araceli [place] [id number] Fabyollie Homero [place] 04/23/2023 1 [employer] [facility] (MEDICAID HMO) Araceli [place] [id number] Katy Gill [place] 08/21/2019 1 *SELF PAY* Faby Gill [place] 02/10/2022 1 [id number] Katy Gill [place] [id number] Katy Gill [place] Notes Date Note Type [...] have dysuria, frequency, lots of pressure, cramping. Araselimau Mills, [employer] TECHNICIAN [address], [place], [address], [place] - [facility] 09/24/2021 10:25:12 01/12/2022 text/html [...] changes and OTC prelief. Alis Laygera wil[place], [place] - [facility] 01/12/2022 15:06:27 02/09/2022 text/html Hal [...] surgery. 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 She reports that she is in [...] She says it also showed enlarged mesentary Brienbessy denies depression/anxiety. Zainab Ch MD [address], [place], [address], [place] - [facility] 07/29/2022 13:27:41 01/05/2023 text/html [...] Zainab Ch MD [address], [place], [address], [place] - [facility] 01/09/2023 16:33:00 OBGyn Episode Ob Episode Information Episode Created Date Number of Fetuses Patient Bloodtype Patient rh Status Prepregnancy Weight lbs Domestic Partner Domestic Partner Phone Father Name Oil Well Cable Tool Driller Status 01/31/20 18 1 CLOSED Fetus Data [...] Comments 5 Regional-Ep idural 40 false 17 [facility] Discharge Information Feeding Method Contraceptive Method Maternal HG B and HCT Levels
--- OUTSIDE RECORDS SUMMARY | 2025-01-07 21:05 | XMS_ITS | Encounter Summary ---
Author Organization Healthcare Address [address] [place] [address] Care Team Providers Care Coil Machine Supervisor Name Role Phone Miranda Pa APRN Primary Care Provider + Encounter Details Date Type Department Care Team (Late st Contact Info) Description 01/22/2021 Community [facility] Community [facility] [address] [place] [address] Miranda Pa APRN [address] [facility] [place] [address] Migraine without status migrainosus, not intractable, unspecified [...] Primary documented in this encounter Care Teams Coil Machine Supervisor Relationship Specialty Start Date End Date Miranda Pa APRN [address] [facility] [place] [address] PCP - General 11/28/20 documented as of this encounter
[2025-01-07] MEDS: LACTATED RINGERS 1000ML 1,000 ML 999 ML IV (21:16)
[2025-01-07 21:29] LABS: Microscopic, Urine URINE MICROSCOPIC (MICROSCOPIC)
[2025-01-07 21:31] LABS: Basophils % 0.1 % (0.1-2.0); Eosinophils % 0.2 % (0.1-12.0); Hematocrit 33.5 % (37.0-47.0); Hemoglobin 11.6 g/dL (12.2-16.2); Immature Granulocytes # 0.03 10^3uL; Immature Granulocytes % 0.3 %; Lymphocytes # 1.6 K/mm3 (0.7-4.5); Lymphocytes % 17.6 % (10-50); Mean Corpuscular HGB Conc 34.6 g/dL (31.8-35.4); Mean Corpuscular Hemoglobin 30.6 pg (27.0-31.2); Mean Corpuscular Volume 88.4 fl (81-99); Mean Platelet Volume 11.2 fl (7.4-10.4); Monocytes # 0.4 K/mm3 (0.1-1.0); Monocytes % 4.7 % (1.7-9.3); Neutrophils # 7.1 K/mm3 (1.8-7.8); Neutrophils % 77.1 % (37.0-80.0); Nucleated Red Blood Cells # 0 10^3/uL; Nucleated Red Blood Cells % 0 %; Platelet Count 221 K/mm3 (142-424); Red Blood Count 3.79 M/mm3 (4.20-5.40); Red Cell Distribution Width 13.4 % (11.5-17.5); Red Cell Distribution Width-SD 43.3 fL; White Blood Count 9.2 K/mm3 (4.8-10.8)
[2025-01-07 21:33] LABS: Appearance,Urine SL CLOUDY (Clear); Bilirubin,Urine Negative (Negative); Blood, Urine Negative (Negative); Color,Urine YELLOW (Yellow); Glucose,Urine (UA) Negative (Negative); Ketones,Urine 2+ (Negative); Leukocyte Esterase,Urine Negative (Negative); Nitrate,Urine Negative (Negative); Protein,Urine Negative (Negative); Specific Gravity, Urine 1.025 (1.005-1.030); Urobilinogen,Urine 0.2 EU/dl (0.2)
[2025-01-07 21:36] LABS: Chloride 103 mmol/L (98-107)
[2025-01-07 21:37] LABS: Albumin Level 3.8 g/dl (3.5-5.0); Potassium 3.9 mmoL/L (3.5-5.1); Sodium 136 mmol/L (136-145)
[2025-01-07 21:39] LABS: Alanine Aminotransferase 34 U/L (12-78); Aspartate Amino Transferase 33 U/L (14-36); Blood Urea Nitrogen 11 mg/dl (7-17); Creatinine Clearance Estimated 218 mL/min (50-200); Estimated Glomerular Filt Rate 118 ml/min (>60); GFR (African American) 143 ML/MIN (>60)
[2025-01-07 21:40] LABS: Albumin/Globulin Ratio 1.1 (1.1-1.8); Alkaline Phosphatase 38 U/L (38-126); Anion Gap 12.9 mEq/L (5-15); Bilirubin,Total 0.5 mg/dl (0.2-1.3); Calcium 9.6 mg/dl (8.4-10.2); Carbon Dioxide 24 mmol/L (22.0-30.0); Globulin 3.6 g/dL (1.3-3.2); Glucose 105 mg/dl (74-100); Total Protein,Serum 7.4 g/dl (6.3-8.2)
--- NOTE | 2025-01-07 21:55 | ED_ITS ---
Discharge Plan Disposition Patient Disposition: Home, Self-Care Condition: Good Prescriptions Prescriptions: New cefdinir 300 mg capsule 300 mg PO BID 7 Days Qty: 14 0RF No Action PNV cmb#95-ferrous fumarate-FA [] 28 mg iron- 800 mcg tablet 1 tab PO DAILY Patient Comments: TAKE ONE TABLET BY MOUTH EVERY DAY terconazole 0.8 % cream 1 appful vaginal HS 3 Days Qty: 20 0RF Referrals Follow up/Referrals: Provider,Referral, MD [Primary Care Provider, Medical] - See instructions Activity Restrictions/Add. Instructions Additional Instructions/Restrictions: You were evaluated in the emergency department today. Please follow-up very closely with OB. 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 Make sure you stay hydrated. Return to the emergency department for new or worsening symptoms. Clinical Impressions Clinical Impression: Bacteriuria during , Dehydration, Pelvic pain affecting Stand Alone Forms Stand Alone Forms: Work/School Release Instructions Patient Instructions: DI for -- Discomforts and Remedies, DI for Abdominal Pain -- Early Print Language Print Language: Setswana Discharge ED Provider: Sydnie Carter General Adult HPI General Chief complaint: PAIN Stated complaint: 17 weeks preg, pelvic pressure and cramping Time Seen by Provider: 01/07/25 21:04 Mode of Arrival: Ambulatory Source of Information: Patient Description of Symptoms (Recalled from ER Triage Doc. by RN): pt presents to the ED d/t pelvic pain 01/24, pt is 17 weeks 6 days . pt states it has been persistent, but comes and goes. she states she thinks it is myrna llanes but just wants to make sure. pt states she has had persistent dehydration and got recent infusion last . pt denies bleeding or spotting. History of Present Illness HPI narrative: This patient is a 29-year-old female who is currently 17 weeks presenting to the emergency department for evaluation with concern for pelvic pain that she describes as a discomfort. She states it is persistent but worsens intermittently. She states she thinks it might be that she is little bit dehydrated it could be [place] or round ligament pain. No abnormal discharge or leakage of fluid, no vaginal bleeding. She is also had no fevers, vomiting, changes in bowel movements, or other concerns. She notes that she has been out to me and thinks that she might have gotten dehydrated, as she has had persistent issues with dehydration requiring IV fluid administration. Given the pain, she elected to come in Related Data Home Medications ?Medication ?Instructions ?Recorded ?Confirmed vit no.95-ferrous 1 tab PO DAILY 09/05/2406/11 fumarate 28 mg-folic acid 800 mcg tablet () Previous Rx's ?Medication ?Instructions ?Recorded terconazole 0.8 % vaginal cream 1 appful vaginal HS 3 days #20 12/19/24 grams cefdinir 300 mg capsule 300 mg PO BID 7 days #14 cap s 01/07/25 Allergies Allergy/AdvReac Type Severity Reaction Status Date / Time metoclopramide (From Reglan) Allergy Mild Hives Verified 12/26/24 08:12 famotidine (From Pepcid) Allergy Verified 12/26/24 08:12 prochlorperazine (From Allergy Verified 12/26/24 08:12 Compazine) levothyroxine AdvReac Intermediate hot flashes Verified 12/26/24 08:12 [facility] PFS Disclaimer: The information contained in this section may have been updated after the patient was seen, as this information can be updated by other users. Medical History Vaginal discomfort GBS bacteriuria Vaginal bleeding affecting early Palpitations SOB (shortness of breath) Chest pain Dizziness Tachycardia Maternal obesity affecting , antepartum Influenza A Vaginal discharge Irregular periods/menstrual cycles Bloating Sinusitis Pleurisy Recurrent candidiasis of vagina Viral URI with cough Bronchitis Obesity (BMI 35.0-39.9 without comorbidity) Patient desires PAC (premature atrial contraction) PVC (premature ventricular contraction) Irritable bowel syndrome (IBS) Hemorrhoid Allergies Depression Anxiety Urinary tract infection Kidney stone History of gastroesophageal reflux (GERD) Migraine Surgical History History of cholecystectomy H/O umbilical hernia repair [place] teeth removed H/O adenoidectomy History of tonsillectomy Family History Other Family history of hypothyroidism Family history of myocardial infarction Social History Smoking Status: Never smoker second hand exposure: Yes alcohol intake: current alcohol intake frequency: holidays/special occasions only substance use type: denies use current occupational status: employed Travel in the last 8 weeks?: None household members: family and children housing: house lives independently: Yes marital status: education level: college service: No fci: No current occupational exposures/hazards: No caffeine: Yes special ronaldo needs: No agree to transfusion: No do you feel safe at home: Yes victim of physical abuse: No victim of emotional abuse: No victim of sexual abuse: No would you like helpful sources: No Have you lived/traveled outside US in past 30 days?: No Contact w/someone who lives/traveled outside US past 30 days?: No Exposure to someone with infectious disease in past 14 days?: No Do you have a fever (greater than 100.4 F or 38 C)?: No Have you tested positive for COVID-19?: No Exposed to someone with COVID-19 in past 14 days?: No Do you have a sore throat?: No Do you have a cough?: No Do you have any weakness?: No Do you have any diarrhea?: No Are you experiencing any unusual bleeding?: No Do you have any muscle aches/pain?: No Do you have any abdominal pain?: No Are you experiencing loss of taste or smell?: No Other Medical History Have you received the Flu Vaccine for this season: Yes Have you received the Pneumonia Vaccine: Yes ROS Obtained: Yes All systems reviewed & no additional complaints except as documented Physical Exam General General appearance: alert and in no apparent distress Head Head exam: atraumatic and normocephalic Eye Eye exam: Present normal appearance, PERRL and EOMI ENT ENT exam: Present normal exam, normal oropharynx, mucous membranes moist and normal external ear exam Neck Neck exam: Present normal inspection, full ROM and trachea midline; Absent tenderness Chest Chest inspection: Present normal inspection and symmetric chest wall rise; Absent tenderness Respiratory Respiratory exam: Present normal lung sounds bilaterally; Absent respiratory distress, wheezes, stridor or accessory muscle use Cardiovascular Cardiovascular exam: Present regular rate and normal rhythm Abdominal Exam Abdominal exam: Present soft; Absent distention, tenderness or guarding Extremities Exam Extremities exam: Present normal inspection, full ROM and normal capillary refill; Absent tenderness or edema Back Exam Back exam: Present normal inspection and full ROM; Absent tenderness Neurological Exam Neurological exam: Present alert, oriented X3, CN II-XII intact and normal gait; Absent motor sensory deficit Psychiatric Psychiatric exam: Present normal affect and normal mood Skin Skin exam: Present warm and dry Medical Decision Making Medical Records Medical records reviewed: Yes I reviewed the patient's medical records. Screening: Per USPSTF and CDC recommendations, given the prevalence of disease in our region, it is our hospital?s policy to screen for HIV and viral Hepatitis for all patients aged 18 and over and those with ongoing risk factors. Alli Inquiry Pt receiving controlled substance: No Vital Signs: 01/07/25 20:59 01/07/25 22:00 01/07/25 22:34 Temperature 98.3 F 98.2 F 98.3 F Temperature Source Oral Oral Pulse Rate 90 90 Pulse Rate [Right Radial] 97 H Respiratory Rate 18 16 16 Blood Pressure 94/56 L 94/56 L Blood Pressure [Right Arm] 136/63 Blood Pressure Mean 67 Blood Pressure Mean [Right Arm] 87 Blood Pressure Position Sitting Blood Pressure Position [Right Arm] Supine 02 Sat by Pulse Oximetry 98 98 Oxygen Delivery Method Room Air Room Air Lab Data Lab results reviewed: Yes I reviewed the patient's lab results. Lab Results 01/07/25 21:25: WBC 9.2, RBC 3.79 L, Hgb 11.6 L, Hct 33.5 L, MCV 88.4, MCH 30.6, MCHC 34.6, RDW 13.4, Plt Count 221, MPV 11.2 H, Neut % (Auto) 77.1, Lymph % (Auto) 17.6, [place] % (Auto) 4.7, Eos % (Auto) 0.2, Baso % (Auto) 0.1, Neut # (Auto) 7.1, Lymph # (Auto) 1.6, [place] # (Auto) 0.4, Eos # (Auto) 0.0, Baso # (Auto) 0.0, Sodium 136, Potassium 3.9, Chloride 103, Carbon Dioxide 24, Anion Gap 12.9, BUN 11, Creatinine 0.60, Estimated Creat Clear 218, Estimated GFR 118, Est GFR ( Amer) 143, Glucose 105 H, Calcium 9.6, Total Bilirubin 0.5, AST 33, ALT 34, Alkaline Phosphatase 38, Total Protein 7.4, Albumin 3.8, Globulin 3.6 H, Albumin/Globulin Ratio 1.1, Urine Color Yellow, Urine Appearance Sl cloudy, Urine pH 6.0, Ur Specific [place] 1.025, Urine Protein Negative, Urine Glucose (UA) Negative, Urine Ketones 2+, Urine Blood Negative, Urine Nitrate Negative, Urine Bilirubin Negative, Urine Urobilinogen 0.2, Ur Leukocyte Esterase Negative, Urine WBC 5-10, Ur Squamous Epith Cells 5-10, Urine Bacteria 3+ 01/07/25 21:25 01/07/25 21:25 Orders (Tests/Meds): ED MEDICATIONS Discontinued Medications Generic Name Dose Route Start Last Admin Trade Name Freq PRN Reason Stop Dose Admin Cefdinir 300 mg 01/07/25 22:12 01/07/25 22:24 Cefdinir 300mg Capsule PO 01/07/25 22:13 300 mg ONCE ONE Administration Lactated Ringer's 1,000 mls @ 999 mls/hr 01/07/25 21:11 01/07/25 21:16 Lactated Ringer's 1000 Ml Bag IV 01/07/25 22:11 999 mls/hr .Q1H1M ONE Administration ORDERS Category Date Time Status POCUS Point of Care (ER Only) Stat Exams 01/07/25 20:56 Completed Complete Blood Count Auto Diff Stat Lab 01/07/25 21:25 Completed Comprehensive Metabolic Panel Stat Lab 01/07/25 21:25 Completed UA [Urinalysis and Microscopic] Stat Lab 01/07/25 21:25 Completed Urine Culture Stat Micro 01/07/25 21:25 Received Medical Decision Narrative: In summary, this patient is a 29-year-old female presenting to the Emergency Department for evaluation of pelvic pain in the setting of . Differential diagnoses considered include but are not limited to threatened , missed , round ligament pain, [place], dehydration, urinary tract infection. Ruling out the most morbid conditions drove assessment. I reviewed patient's past medical records and noted prior OB evaluations for maintenance of health in . On exam, the patient is well-appearing with benign abdominal exam. Workup included CBC, CMP, urinalysis, and transabdominal bedside ultrasound. Ultrasound shows good movement with a heart rate of 140. Good amount of amniotic fluid. Ultrasound is not overtly concerning. Labs demonstrated reassuring CBC without anything actionable, chemistry is also reassuring with normal liver enzymes, normal kidney function. Platelet counts normal, she has no proteinuria. Urinalysis does demonstrate ketones, concerning for volume depletion/dehydration. She was given a bolus of IV fluid. Urine is also concerning for bacteria. Ultimately, we will treat bacteria in urine in the setting of with cefdinir. I feel she is appropriate for discharge with close follow-up with OB as well as primary care after fluid resuscitation. Strict return precautions were given Procedures Limited Ultrasound Findings:: Limited OB ultrasound Indication: Pelvic pain in the setting of Identified structures: Uterus Findings: Uterus: Definitive IUP FHR: 140 Impression: -IUP: Present, good movement, good heart tones - heart rate: 140 Images were saved to permanent archive The study was technically adequate CPT Transabdominal: 71321-40 This study was performed by me, and I personally interpreted all images/videos. Based on my clinical judgement, these images were [adequate/inadequate] and [did/did not] necessitate further imaging. Critical Care Critical Care Time Critical Care Time: No
[2025-01-07 21:56] LABS: Bacteria,Urine 3+ /lpf
[2025-01-07 22:00] VITALS: BP 94/56; PULSE 90; RESP 16; TEMP 36.8; O2SAT 98
[2025-01-07] MEDS: CEFDINIR 300MG CAPSULE 300 MG PO (22:24)
[2025-01-07 22:34] VITALS: BP 94/56; PULSE 90; RESP 16; TEMP 36.8; O2SAT 98
== END 2025-01-07 22:35 | disposition home or self-care (01) ==
PROVIDERS: Emergency Provider Emergency Medicine
DX: O26.892 Other specified pregnancy related conditions, second trimester (principal); R10.2 Pelvic and perineal pain; E86.0 Dehydration; R82.71 Bacteriuria; R82.4 Acetonuria; Z3A.17 17 weeks gestation of pregnancy
CPT/HCPCS: 80053; 81001; 85025; 87086; 96360; 99284; J7120

== ENCOUNTER 2025-01-23 08:54 | Outpatient (CLI) | payer OTHER, SELFPAY ==
--- OUTSIDE RECORDS SUMMARY | 2025-01-23 08:58 | XMS_ITS | Clinical Summary ---
Author Organization Healthcare Address [address] [place] [address] Care Team Providers Care Anesthesiology Resident Name Role Phone Miranda Pa HAILEY Primary [...] Date Last Done Comments [facility]-Depression Screening 1995 [facility]-Infant/Child/Adol SDOH Screenings 1995 [facility]-Hepatitis B Vaccines (2 [...] Td or Tdap) 02/16/2016 02/15/2006, 08/07/1999, 1995 [id number] Vaccine (1 - 2023- season) 2024 [facility]-Influenza Vaccine (#1) 2025 [facility]-Zoster Vaccines (1 of 2) 2045 [...] patient's age to complete this topic [facility] Care Teams Anesthesiology Resident Relationship Specialty Start Date End Date Miranda Pa APRN [address] [place] [address] Dr Lopez SAR[place] [id number] PCP - General 11/28/20
--- OUTSIDE RECORDS SUMMARY | 2025-01-23 08:58 | XMS_ITS | Encounter Summary ---
Author Organization Healthcare Address [address] [place] [address] Care Team Providers Care Business Info Consultant Name Role Phone Miranda Pa APRN Primary Care Provider + Encounter Details Date Type Department Care Team (Late st Contact Info) Description 01/22/2021 Community [facility] Community Practice [address] [place] [address] Miranda Pa APRN [address] [facility] [place] [address] Migraine without status migrainosus, not intractable, unspecified [...] Primary documented in this encounter Care Teams Business Info Consultant Relationship Specialty Start Date End Date Miranda Pa APRN [address] [facility] [place] [address] PCP - General 11/28/20 documented as of this encounter
--- OUTSIDE RECORDS SUMMARY | 2025-01-23 08:58 | XMS_ITS | Data Portability ---
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 Lab cytology report, thin prep, smear or scraping, cervical or vaginal 2022 023 LAUREL [facility], [address], [place], [address], 3 12:13:17 TSH + free T4, serum 2022 023 LAUREL [facility], [address], [place], [address], 3 10:36:51 testosteron e, free + total, serum 2022 023 TOPEKA [facility], [address], [place], [address], 3 10:36:52 HbA1c (hemoglobin A1c), blood 2022 023 TOP[facility]KA [facility], [address], [place], [address], 3 10:36:55 test, urine 2022 023 [facility] 2 [employer]imming Machine Operator, [address] [place] [address] , [place], [address], 3 16:31:01 vaginal pathogens panel, AVIVA+probe, vaginal fluid 2022 023 TOP[facility]KA [facility], [address], [place], [address], 3 10:36:50 HIV 1 + 2, meaningful use set 2022 023 TOP[facility]KA [facility], [address], [place], [address], 3 10:36:52 RPR (rapid plasma reagin), serum 2022 023 TOP[facility], [address], [place], [address], 3 10:36:53 HBsAg (hepatitis B surface Ag), EIA, serum 2022 023 [facility], [address], [place], [address], 3 10:36:56 Hepatitis C IgG Ab, qual, serum 2022 023 [facility], [address], [place], [address], 3 10:36:54 cytology report, thin prep, smear or scraping, cervical or vaginal 2022 023 [facility], [address], [place], [address], 3 13:07:39 CBC w/ auto diff 2021 022 [facility]( [facility]), [address] [place] [address] [place], [address], 2 12:15:31 CMP, serum or plasma 2021 022 [facility]( Lab), [address] [place] [address] [place], [address], 2 16:27:52 urinalysis, reflex culture 2021 [facility]( Lab), [address] [place] [address] [place], [address], 2 18:13:34 Pap smear tests - FPAR 2.0 set 2021 022 TOPEKA [facility], [address], [place], [address], 2 13:09:33 test, urine 2021 022 [email or web address] [employer], [address] [place] [address] , [place], [address], 2 14:59:48 culture, urine 2021 022 [facility], [address], [place], [address], 2 22:07:17 urinalysis, dipstick 2021 022 [email or web address] [employer] Operator, [address] [place] [address] , [place], [address], 09:23:09 Referral gynecologic surgery referral - lap b/l salpingecto my 2021 022 [email or web address] Not available 12:43:16 Procedures None recorded. Surgeries None recorded. Imaging None recorded. Medication Orders Prelief 65 mg tablet 2021 022 [email or web address] [facility] - [address], [place], [address], 13:08:44 Patient TargetsNo targets recorded. Patient Instructions Encounter Date Encounter Id Patient Instructions Last Modified By Organization Details Last Modified Time 09/24/2021 [id number] Increase fluids Avoid soda and tea Will send urine for culture and call with results. If urine culture is positive, will call in an antibiotic. [email or web address] Not available 09/24/2021 10:24:55 01/12/2022 [id number] Interstitial cystitis questionnaire given and score positive for IC. Discussed IC care guide as well as first line treatments including dietary changes and OTC prelief. Rx prelief given Pap obtained Will sign sterilization paperwork and RTO for preop for lap b/l salpingectomy. 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 Will beauty counselor on PNV at next visit -Depression screening: PHQ 9 negative -Family Hx: Mother with hx of cervical cancer and leiomyoma Vaginal pain/pelvic pain/dysuapreunia: will get ER records. Pt reports enlarged mesentry. Will get CT scan results. Return for pelvic US Brienbessy deisres excision of sebaceous cysts from her vulva. Will perform this as well upon return [email or web address] Not available 07/29/2022 13:27:23 01/05/2023 [id number] Given post-coita l bleeding and hx of cervical dysplasia, pap collected, but also recommended colpo and she agrees. Given AUB, check labs and return for US. Also performing for pelvic pain Full STI testing performed today [email or web address] Not available 01/09/2023 16:32:35 Reason for Referral Gynecologic Surgery Referral for Sterilization requested lap b/l salpingectomy Referring Physician: Alis Mays, BAG REPAIRER, Encounter Date: 01/12/2022 Results Created Date Observation Date Name Description Value Unit Range Abnormal Flag Note LastModifiedBy Organization Detail LastModifiedTime 09/10/19 22 09/10/2021 rapid strep group A, throa t Strep negati ve Not Available [address] , [place], [address], 09/10/2021 15:09:41 09/25/19 22 09/25/2021 URINE CULTU REEVIN NE urine culture, routine Final report Not Available [facility] ([facility]) [address] [place], [address], 09/25/2021 22:07:17 09/25/19 22 09/25/2021 URINE CULTU REEVIN NE result 1 No growth Not Available [facility] ([facility]) [address] [place], [address], 09/25/2021 22:07:17 09/25/19 22 09/24/2021 urina lysis , dipst ick Leukocytes Modera te Not Available [employer] [address] [place] [address] , [place], [address], 09/24/2021 09:11:16 09/25/19 22 09/24/2021 urina lysis , dipst ick Nitrite negati ve Not Available [employer] [address] [place] [address] , [place], [address], 09/24/2021 09:11:16 09/25/19 22 09/24/2021 urina lysis , dipst ick Urobilinogen .2 Not Available [facility] ille Trimming Machine Operator [address] [place] [address] , [place], [address], 09/24/2021 09:11:16 09/25/19 22 09/24/2021 urina lysis , dipst ick Protein Negati ve Not Available [facility] [address] [place] [address] , [place], [address], 09/24/2021 09:11:16 09/25/19 22 09/24/2021 urina lysis , dipst ick pH 6.5 Not Available [facility]/[address] , [place], [address], 09/24/2021 09:11:16 09/25/19 22 09/24/2021 urina lysis , dipst ick Blood Modera te Not Available [facility]/[address] , [place], [address], 09/24/2021 09:11:16 09/25/19 22 09/24/2021 urina lysis , dipst ick Specific Cobb 1.030 Not Available [facility] lle Trimming Machine Operator [address] [place] [address] , [place], [address], 09/24/2021 09:11:16 09/25/19 22 09/24/2021 urina lysis , dipst ick Ketone Negati ve Not Available [facility] [address] [place] [address] , [place], [address], 09/24/2021 09:11:16 09/25/19 22 09/24/2021 urina lysis , dipst ick Bilirubin Negati ve Not Available [facility] [address] [place] [address] , [place], [address], 09/24/2021 09:11:16 09/25/19 22 09/24/2021 urina lysis , dipst ick Glucose Negati ve Not Available [employer] [address] [place] [address] , [place], [address], 09/24/2021 09:11:16 09/25/19 22 09/24/2021 urina lysis , dipst ick Appearance Slight ly Cloudy Not Available [employer] [address] [place] [address] , [place], [address], 09/24/2021 09:11:16 09/25/19 22 09/24/2021 urina lysis , dipst ick Color Yellow Not Available [employer] [address] [place] [address] , [place], [address], 09/24/2021 09:11:16 01/13/20 22 01/14/2022 IGP,R FX APTIM A HPV ALL PTH diagnosis: Commen t NEGAT BALBINA FOR INTRA EPITH ELIAL LESIO N OR MAGGIE SMITH . PREDO RANDA CE OF [place] BACIL LI CONSI STENT WITH SHIFT IN VAGIN AL ARSLAN IS PRESE NT. Not Available [facility] ([facility]) [address] [facility], [place], [address], 01/14/2022 13:09:33 01/13/20 22 01/14/2022 IGP,R FX APTIM A HPV ALL PTH specimen adequacy: Commen t Satis facto ry for evalu ation . Endoc ervic al and/o r squam ous metap lasti c cells (endo cervi kim compo nent) are prese nt. Not Available [facility] ([facility]) [address] [facility], [place], [address], 01/14/2022 13:09:33 01/13/20 22 01/14/2022 IGP,R FX APTIM A HPV ALL PTH clinician provided ICD10: Commen t R87.6 19 Not Available [facility] ([facility]) [address] [place], [address], 01/14/2022 13:09:33 01/13/20 22 01/14/2022 IGP,R FX APTIM A HPV ALL PTH performed by: Alejandro Huston Not Available [facility] ([facility]) [address] [place], [address], 01/14/2022 13:09:33 01/13/20 22 01/14/2022 IGP,R FX APTIM A HPV ALL PTH . . Not Available [facility] ([facility]) [address] [place], [address], 01/14/2022 13:09:33 01/13/20 22 01/14/2022 IGP,R FX [...] ts do occur . Not Available [facility] ([facility]) [address] [place], [address], 01/14/2022 13:09:33 01/13/20 22 01/14/2022 IGP,R FX APTIM A HPV ALL PTH test methodology: Monae aldana This liqui d based ThinP rep(R ) pap test was scree vahe with the use of an image guide anatoliy gill. Not Available [facility] ([facility]) [address] [place], [address], 01/14/2022 13:09:33 01/13/20 22 01/14/2022 IGP,R FX APTIM A HPV ALL PTH . Commen t The HPV DNA refle x crite matthias were not met with this speci men resul t there fore, no HPV testi ng was perfo rmed. Not Available [facility] ([facility]) [address] [facility], [place], [address], 01/14/2022 13:09:33 01/13/20 22 01/12/2022 pregn arminda test, urine HCG negati ve Not Available [employer] [address] [facility] , [place], [address], 01/12/2022 14:37:35 02/10/20 22 02/09/2022 CBC W/AUT O DIFFE RENTI AL note See Note Order ing Provi tata: Yolanda Ch (Appl eton) Not Available [address] , [place], [address], 02/09/2022 14:27:37 02/10/20 22 02/09/2022 CBC W/AUT O DIFFE RENTI AL white blood cell 8.4 10e3/ uL 4.5-13 .0 normal Not Available [address] [place], [place], [address], 02/09/2022 14:27:37 02/10/20 22 02/09/2022 CBC W/AUT O DIFFE RENTI AL red blood cell 4.27 10e6/ uL 3.80-5 .10 normal Not Available [address] [place], [address], 02/09/2022 14:27:37 02/10/20 22 02/09/2022 CBC W/AUT O DIFFE RENTI AL hemoglobin 12.8 g/dL 11.5-1 5.3 normal Not Available [address] , [place], [address], 02/09/2022 14:27:37 02/10/20 22 02/09/2022 CBC W/AUT O DIFFE RENTI AL hematocrit 38.6 % 34.0-4 6.0 normal Not Available [address] [place], [place], [address], 02/09/2022 14:27:37 02/10/20 22 02/09/2022 CBC W/AUT O DIFFE RENTI AL mean cell volume 90 fL 78.0-9 8.0 normal Not Available [address] [place], [place], [address], 02/09/2022 14:27:37 02/10/20 22 02/09/2022 CBC W/AUT O DIFFE RENTI AL mean cell HGB 30.0 pg 25.0-3 5.0 normal Not Available [address] [place], [place], [address], 02/09/2022 14:27:37 02/10/20 22 02/09/2022 CBC W/AUT O DIFFE RENTI AL mean cell HGB concentratio n 33.2 g/dL 31.0-3 6.0 normal Not Available [address] [place], [place], [address], 02/09/2022 14:27:37 02/10/20 22 02/09/2022 CBC W/AUT O DIFFE RENTI AL red cell distribution width 13.3 % 11.0-1 5.0 normal Not Available [address] [place], [place], [address], 02/09/2022 14:27:37 02/10/20 22 02/09/2022 CBC W/AUT O DIFFE RENTI AL platelet count 223 10e3/ uL 150-40 0 normal Not Available [address] [place], [place], [address], 02/09/2022 14:27:37 02/10/20 22 02/09/2022 CBC W/AUT O DIFFE RENTI AL immature granulocyte % 0 0-1 normal Not Available [address] , [place], [address], 02/09/2022 14:27:37 02/10/20 22 02/09/2022 CBC W/AUT O DIFFE RENTI AL neutrophil % 71 % 35-75 normal Not Available [address] , [place], [address], 02/09/2022 14:27:37 02/10/20 22 02/09/2022 CBC W/AUT O DIFFE RENTI AL lymphocyte % 23 % 10-50 normal Not Available [address] , [place], [address], 02/09/2022 14:27:37 02/10/20 22 02/09/2022 CBC W/AUT O DIFFE RENTI AL monocyte % 6 % 0-15 normal Not Available [address] , [place], [address], 02/09/2022 14:27:37 02/10/20 22 02/09/2022 CBC W/AUT O DIFFE RENTI AL eosinophil % 0 % 0-5 normal Not Available [address] [place], [place], [address], 02/09/2022 14:27:37 02/10/20 22 02/09/2022 CBC W/AUT O DIFFE RENTI AL basophil % 0 % 0-5 normal Not Available [address] , [place], [address], 02/09/2022 14:27:37 02/10/20 22 02/09/2022 CBC W/AUT O DIFFE RENTI AL immature granulocyte # 0.02 x1000 /uL 0-0.05 normal Not Available [address] , [place], [address], 02/09/2022 14:27:37 02/10/20 22 02/09/2022 CBC W/AUT O DIFFE RENTI AL neutrophil # 5.90 x1000 /uL 1.50-8 .00 normal Not Available [address] , [place], [address], 02/09/2022 14:27:37 02/10/20 22 02/09/2022 CBC W/AUT O DIFFE RENTI AL lymphocyte # 1.92 x1000 /uL 1.20-5 .20 normal Not Available [address] , [place], [address], 02/09/2022 14:27:37 02/10/20 22 02/09/2022 CBC W/AUT O DIFFE RENTI AL monocyte # 0.49 x1000 /uL 0.40-0 .90 normal Not Available [address] [place], [place], [address], 02/09/2022 14:27:37 02/10/20 22 02/09/2022 CBC W/AUT O DIFFE RENTI AL eosinophil # 0.02 x1000 /uL 0.00-0 .50 normal Not Available [address] [place], [place], [address], 02/09/2022 14:27:37 02/10/20 22 02/09/2022 CBC W/AUT O DIFFE RENTI AL basophil # 0.02 x1000 /uL 0.00-0 .30 normal Not Available [address] , [place], [address], 02/09/2022 14:27:37 02/10/20 22 02/09/2022 CBC W/AUT O DIFFE RENTI AL NRBC automated 0.0 /100_ WBC Not Available [address] , [place], [address], 02/09/2022 14:27:37 02/10/20 22 02/09/2022 CBC W/AUT O DIFFE SIMÓN VOGT performing lab see note ML - [facility] [address] [facility] [id number] Not Available [address] , [place], [address], 02/09/2022 14:27:37 02/10/20 22 02/09/2022 COMP METAB OLIC PANEL note See Note Order ing Provi tata: Yolanda Ch (Appl eton) Not Available [address] , [place], [address], 02/09/2022 14:41:10 02/10/20 22 02/09/2022 COMP METAB OLIC PANEL sodium 138 mmol/ L 136-14 5 normal Not Available [address] , [place], [address], 02/09/2022 14:41:10 02/10/20 22 02/09/2022 COMP METAB OLIC PANEL potassium 4.1 mmol/ L 3.5-5. 1 normal Not Available [address] , [place], [address], 02/09/2022 14:41:10 02/10/20 22 02/09/2022 COMP METAB OLIC PANEL chloride 103 mmol/ L 98-107 normal Not Available [address] , [place], [address], 02/09/2022 14:41:10 02/10/20 22 02/09/2022 COMP METAB OLIC PANEL carbon dioxide 26 mmol/ L 24-33 normal Not Available [address] , [place], [address], 02/09/2022 14:41:10 02/10/20 22 02/09/2022 COMP METAB OLIC PANEL anion gap 13.1 mmol/ L 10-20 normal Not Available [address] , [place], [address], 02/09/2022 14:41:10 02/10/20 22 02/09/2022 COMP METAB OLIC PANEL glucose 86 mg/dL 70-99 normal Not Available [address] [place], [place], [address], 02/09/2022 14:41:10 02/10/20 22 02/09/2022 COMP METAB OLIC PANEL blood urea nitrogen 12 mg/dL 7-18 normal Not Available [address] , [place], [address], 02/09/2022 14:41:10 02/10/20 22 02/09/2022 COMP METAB OLIC PANEL creatinine 1.06 mg/dL 0.55-1 .02 high Not Available [address] [place], [place], [address], 02/09/2022 14:41:10 02/10/20 22 02/09/2022 COMP METAB OLIC PANEL BUN/creatini ne ratio 11 12-20 low Not Available [address] [place], [place], [address], 02/09/2022 14:41:10 02/10/20 22 02/09/2022 COMP METAB OLIC PANEL total protein 7.8 g/dL 6.4-8. 2 normal Not Available [address] , [place], [address], 02/09/2022 14:41:10 02/10/20 22 02/09/2022 COMP METAB OLIC PANEL albumin 4.0 g/dL 3.4-5. 0 normal Not Available [address] [place], [address], 02/09/2022 14:41:10 02/10/20 22 02/09/2022 COMP METAB OLIC PANEL globulin 3.8 g/dL 1.5-4. 0 normal Not Available [address] [place], [address], 02/09/2022 14:41:10 02/10/20 22 02/09/2022 COMP METAB OLIC PANEL albumin/glob ulin ratio 1.1 0.5-2. 0 normal Not Available [address] [place], [address], 02/09/2022 14:41:10 02/10/20 22 02/09/2022 COMP METAB OLIC PANEL calcium 9.4 mg/dL 8.5-10 .1 normal Not Available [address] , [place], [address], 02/09/2022 14:41:10 02/10/20 22 02/09/2022 COMP METAB OLIC PANEL osmolality serum calculated 274 mOsm/ kg 272-28 8 normal Not Available [address] [place], [address], 02/09/2022 14:41:10 02/10/20 22 02/09/2022 COMP METAB OLIC PANEL glom filtr rate (estimated) > 60 mL/mi n >60 normal Not Available [address] [place], [address], 02/09/2022 14:41:10 02/10/20 22 02/09/2022 COMP METAB OLIC PANEL GFR est (if -amer ican) > 60 mL/mi n >60 normal Not Available [address] [place], [address], 02/09/2022 14:41:10 02/10/20 22 02/09/2022 COMP METAB OLIC PANEL bilirubin total 0.4 mg/dL 0.2-1. 0 normal Use of this assay is not recom maxim d for patie nts under going treat ment with Eltro mbopa g due to the poten tial for false ly eleva idris resul ts. Not Available [address] , [place], [address], 02/09/2022 14:41:10 02/10/20 22 02/09/2022 COMP METAB OLIC PANEL SGOT/AST 12 U/L 15-37 low Not Available [address] [place], [address], 02/09/2022 14:41:10 02/10/20 22 02/09/2022 COMP METAB OLIC PANEL SGPT/ALT 18 U/L 14-59 normal Not Available [address] , [place], [address], 02/09/2022 14:41:10 02/10/20 22 02/09/2022 COMP METAB OLIC PANEL alkaline phosphatase total 35 U/L 46-116 low Not Available [address] , [place], [address], 02/09/2022 14:41:10 02/10/20 22 02/09/2022 COMP METAB OLIC PANEL performing lab see note - [facility] R [address] [facility] [address] Not Available [address] [place], [address], 02/09/2022 14:41:10 02/10/20 22 02/09/2022 URINA LYSIS COMPL ETE note See Note Order ing Provi tata: Yolanda Ch (Appl eton) Not Available [address] [place], [address], 02/09/2022 14:42:16 02/10/20 22 02/09/2022 URINA LYSIS COMPL ETE UA method of collection CLEAN CATCH Not Available [address] [place], [place], [address], 02/09/2022 14:42:16 02/10/20 22 02/09/2022 URINA LYSIS COMPL ETE UA color LT YELLOW yellow Not Available [address] , [place], [address], 02/09/2022 14:42:16 02/10/20 22 02/09/2022 URINA LYSIS COMPL ETE UA appearance SL.MICHELE UDY clear Not Available [address] , [place], [address], 02/09/2022 14:42:16 02/10/20 22 02/09/2022 URINA LYSIS COMPL ETE UA glucose dipstick NEGATI VE negati ve Not Available [address] [place], [place], [address], 02/09/2022 14:42:16 02/10/20 22 02/09/2022 URINA LYSIS COMPL ETE UA bilirubin dipstick NEGATI VE negati ve Not Available [address] [place], [place], [address], 02/09/2022 14:42:16 02/10/20 22 02/09/2022 URINA LYSIS COMPL ETE UA ketone dipstick NEGATI VE negati ve Not Available [address] [place], [address], 02/09/2022 14:42:16 02/10/20 22 02/09/2022 URINA LYSIS COMPL ETE UA specific gravity 1.010 1.005- 1.030 normal Not Available [address] [place], [address], 02/09/2022 14:42:16 02/10/20 22 02/09/2022 URINA LYSIS COMPL ETE UA blood dipstick 3+ negati ve abnormal Not Available [address] [place], [address], 02/09/2022 14:42:16 02/10/20 22 02/09/2022 URINA LYSIS COMPL ETE UA pH dipstick 7.0 5.0-9. 0 normal Not Available [address] [place], [address], 02/09/2022 14:42:16 02/10/20 22 02/09/2022 URINA LYSIS COMPL ETE UA protein dipstick NEGATI VE negati ve Not Available [address] [place], [address], 02/09/2022 14:42:16 02/10/20 22 02/09/2022 URINA LYSIS COMPL ETE UA urobilinogen dipstick NEGATI VE mg/dL <1 Not Available [address] , [place], [address], 02/09/2022 14:42:16 02/10/20 22 02/09/2022 URINA LYSIS COMPL ETE UA nitrite dipstick NEGATI VE negati ve Not Available [address] [place], [address], 02/09/2022 14:42:16 02/10/20 22 02/09/2022 URINA LYSIS COMPL ETE UA leukocyte esterase dipstick 2+ negati ve abnormal Not Available [address] [place], [address], 02/09/2022 14:42:16 02/10/20 22 02/09/2022 URINA LYSIS COMPL ETE UA RBC 0-5 RBC/h pf none seen abnormal Not Available [address] , [place], [address], 02/09/2022 14:42:16 02/10/20 22 02/09/2022 URINA LYSIS COMPL ETE UA WBC 0-5 WBC/h pf 0-5 Not Available [address] , [place], [address], 02/09/2022 14:42:16 02/10/20 22 02/09/2022 URINA LYSIS COMPL ETE UA epithelial cells 21-30 SQUAMO US epi/h pf 0-5 abnormal Not Available [address] , [place], [address], 02/09/2022 14:42:16 02/10/20 22 02/09/2022 URINA LYSIS COMPL ETE UA bacteria 1+ none seen abnormal Not Available [address] , [place], [address], 02/09/2022 14:42:16 02/10/20 22 02/09/2022 URINA LYSIS COMPL ETE UA mucus NONE SEEN none seen Not Available [address] , [place], [address], 02/09/2022 14:42:16 02/10/20 22 02/09/2022 URINA LYSIS COMPL ETE UA amorphous sediment NONE SEEN none seen Not Available [address] , [place], [address], 02/09/2022 14:42:16 02/10/20 22 02/09/2022 URINA LYSIS COMPL ETE comment 1 >20 EPI'S No Cultu re Perfo rmed. Speci men faile d Refle x Cultu re Crite matthias. Not Available [address] [place], [address], 02/09/2022 14:42:16 02/10/20 22 02/09/2022 URINA LYSIS COMPL ETE performing lab see note - [facility] R [address] [facility] [address] Not Available [facility] [address], [place], [address], 02/09/2022 14:42:16 07/20/19 23 07/23/2022 IGP, APTIM A HPV, RFX 16/18 ,45 HPV aptima Negati ve negati ve This nucle ic acid ampli ficat ion test detec ts fourt een high- risk HPV types (16,1 8,31, 33,35 ,39,4 5,51, 52,56 ,58,5 9,66, 68) witho ut diffe renti ation . Not Available [facility] (Lab) [id number] [address], [place], [address], 07/25/2022 13:07:39 07/20/19 23 07/25/2022 IGP, APTIM A HPV, RFX 16/18 ,45 diagnosis: Commen t NEGAT BALBINA FOR INTRA EPITH ELIAL LESIO N OR MAGGIE SMITH . PREDO MINAN CE OF [place] BACIL LI CONSI STENT WITH SHIFT IN VAGIN AL ARSLAN IS PRESE NT. Not Available [facility] (Lab) [id number] [address], [place], [address], 07/25/2022 13:07:39 07/20/19 23 07/25/2022 IGP, APTIM A HPV, RFX 16/18 ,45 specimen adequacy: Commen t Satis facto ry for evalu ation . No endoc ervic al compo nent is ident ified . Not Available [facility] (Lab) [address] [facility] [address], [place], [address], 07/25/2022 13:07:39 07/20/19 23 07/25/2022 IGP, APTIM A HPV, RFX 16/18 ,45 clinician provided ICD10: Monae aldana Z12.4 Not Available [facility] (Lab) [id number] [place] [address], [place], [address], 07/25/2022 13:07:39 07/20/19 23 07/25/2022 IGP, APTIM A HPV, RFX 16/18 ,45 performed by: Monae Garcia Sr, Cytojovan aldana (ASCP ) Not Available [facility] (Lab) [address] [address], [place], [address], 07/25/2022 13:07:39 07/20/19 23 07/25/2022 IGP, APTIM A HPV, RFX 16/18 ,45 . . Not Available [facility] (Lab) [id number] [place] [address], [place], [address], 07/25/2022 13:07:39 07/20/19 23 07/25/2022 IGP, APTIM [...] Not Available [facility] ([facility]) [address] [address], [place], [address], 07/25/2022 13:07:39 07/20/19 23 07/25/2022 IGP, APTIM A HPV, RFX 16/18 ,45 test methodology: Monae aldana This liqui d based ThinP rep(R ) pap test was scree vahe with the use of an image guide anatoliy lance Not Available [facility] (Lab) [address] [place] [address], [place], [address], 07/25/2022 13:07:39 07/20/19 23 07/25/2022 IGP, APTIM A HPV, RFX 16/18 ,45 HPV genotype reflex Commen t Crite matthias not met, HPV Genot ype not perfo rmed. Not Available [facility] ([facility]) [address], [place], [address], 07/25/2022 13:07:39 01/06/20 23 01/06/2023 NUSWA B VAGIN ITIS PLUS (VG+) atopobium vaginae Low - 0 score Not Available [facility] ([facility]) [address] [place], [address], 01/11/2023 10:36:49 01/06/20 23 01/06/2023 NUSWA B VAGIN ITIS PLUS (VG+) bvab 2 Modera te - 1 score Not Available [facility] (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 Not Available [facility] ([facility]) [address] [place], [address], 01/11/2023 10:36:49 01/06/20 23 01/06/2023 NUSWA B VAGIN ITIS PLUS (VG+) bisi albicans, AVIVA Negati ve negati ve Not Available [facility] ([facility]) [address] [facility], [place], [address], 01/11/2023 10:36:49 01/06/20 23 01/06/2023 NUSWA B VAGIN ITIS PLUS (VG+) bisi glabrata, AVIVA Negati ve negati ve Not Available [facility] ([facility]) [address] [facility], [place], [address], 01/11/2023 10:36:49 01/06/20 23 01/06/2023 NUA B VAGIN ITIS PLUS (VG+) trich vag by AVIVA Negati ve negati ve Not Available [facility] ([facility]) [address] [facility], [place], [address], 01/11/2023 10:36:49 01/06/20 23 01/06/2023 NUSWA B VAGIN ITIS PLUS (VG+) chlamydia trachomatis, AVIVA Negati ve negati ve Not Available [facility] ([facility]) [address] [facility], [place], [address], 01/11/2023 10:36:49 01/06/20 23 01/06/2023 NUSWA B VAGIN ITIS PLUS (VG+) neisseria gonorrhoeae, AVIVA Negati ve negati ve Not Available [facility] ([facility]) [address] [place], [address], 01/11/2023 10:36:49 01/06/20 23 01/06/2023 TSH+F REE T4 TSH 0.400 uIU/m L 0.450- 4.500 below low normal Not Available [facility] ([facility]) [address] [place], [address], 01/11/2023 10:36:51 01/06/20 23 01/06/2023 TSH+F REE T4 T4,free(dire ct) 1.17 NG/dL 0.82-1 .77 Not Available [facility] ([facility]) [address] [place], [address], 01/11/2023 10:36:51 01/06/20 23 01/06/2023 TESTO STERO NE,FR EE AND TOTAL testosterone 46 NG/dL 13- Not Available [facility] ([facility]) [address] [facility], [place], [address], 01/11/2023 10:36:51 01/06/2001/11/2023 TESTO STERO NE,FR EE AND TOTAL free testosterone (direct) 1.0 pg/mL 0.0-4. 2 Not Available [facility] ([facility]) [address] [facility], [place], [address], 01/11/2023 10:36:51 01/06/20 23 01/06/2023 HIV AB/P2 4 AG WITH REFLE X HIV Ab/P24 Ag screen Non Reacti ve non reacti ve HIV Negat balbina HIV-1 /HIV- 2 antib odies and HIV-1 p24 antig en were NOT detec idris. There is no labor atory evide nce of HIV infec tion. Not Available [facility] ([facility]) [address] [facility], [place], [address], 01/11/2023 10:36:52 01/06/20 23 01/06/2023 RPR, RFX QN RPR/C ONFIR M TP RPR Non Reacti ve non reacti ve Not Available [facility] ([facility]) [address] [facility], [place], [address], 01/11/2023 10:36:53 01/06/20 23 01/06/2023 HCV ANTIB [...] e HCV infec tion. Not Available [facility] ([facility]) [address] [facility], [place], [address], 01/11/2023 10:36:54 01/06/20 23 01/06/2023 HEMOG LOBIN A1C hemoglobin A1C 4.7 % 4.8-5. 6 below low normal Predi abete s: 5.7 - 6.4 Diabe danilo: >6.4 Glyce morena contr ol for adult s with diabe danilo: <7.0 Not Available [facility] ([facility]) [address] [facility], [place], [address], 01/11/2023 10:36:55 01/06/2001/06/2023 HBSAG SCREE N HBsAg screen Negati ve negati ve Not Available [facility] ([facility]) [address] [facility], [place], [address], 01/11/2023 10:36:56 01/07/2001/06/2023 IGP, APTIM A HPV, RFX 16/18 ,45 HPV aptima Negati ve negati ve This nucle ic acid ampli ficat ion test detec ts fourt een high- risk HPV types (16,1 8,31, 33,35 ,39,4 5,51, 52,56 ,58,5 9,66, 68) witho ut diffe renti ation . Not Available [facility] ([facility]) [address] [facility], [place], [address], 01/07/2023 12:13:17 01/07/20 23 01/07/2023 IGP, APTIM A HPV, RFX 16/18 ,45 diagnosis: Commen t NEGAT BALBINA FOR INTRA EPITH ELIAL LESIO N OR MALIG LUIS . SPECI MEN REPRO CESSE D FOR INTER PRETA TION USING GLACI AL ACETI C ACID (GAA) . Not Available [facility] ([facility]) [address] [place], [address], 01/07/2023 12:13:17 01/07/20 23 01/07/2023 IGP, APTIM A HPV, RFX 16/18 ,45 specimen adequacy: Monae aldana Satis facto ry for evalu ation . Endoc ervic al and/o r squam ous metap lasti c cells (endo cervi kim compo nent) are prese nt. Areas of parti ally obscu ring blood are prese nt. Not Available [facility] ([facility]) [address] [place], [address], 01/07/2023 12:13:17 01/07/2001/07/2023 IGP, APTIM A HPV, RFX 16/18 ,45 clinician provided ICD10: Monae aldana Z11.3 N93.9 N93.0 Not Available [facility] ([facility]) [address] [place], [address], 01/07/2023 12:13:17 01/07/20 23 01/07/2023 IGP, APTIM A HPV, RFX 16/18 ,45 performed by: Monae jesus, Cytot stefany aldana (ASCP ) Not Available [facility] ([facility]) [address] [place], [address], 01/07/2023 12:13:17 01/07/2001/07/2023 IGP, APTIM A HPV, RFX 16/18 ,45 . . Not Available [facility] ([facility]) [address] [place], [address], 01/07/2023 12:13:17 01/07/20 23 01/07/2023 IGP, APTIM [...] ts do occur . Not Available [facility] ([facility]) [address] [facility], [place], [address], 01/07/2023 12:13:17 01/07/20 23 01/07/2023 IGP, APTIM A HPV, RFX 16/18 ,45 test methodology: Remaen t This liqui d based ThinP rep(R ) pap test was scree vahe with the use of an image guide anatoliy gill. Not Available [facility] ([facility]) [address] [facility], [place], [address], 01/07/2023 12:13:17 01/07/20 23 01/07/2023 IGP, APTIM A HPV, RFX 16/18 ,45 HPV genotype reflex Commen t Crite matthias not met, HPV Genot ype not perfo rmed. Not Available [facility] ([facility]) [address] [place], [address], 01/07/2023 12:13:17 01/10/20 23 01/09/2023 pregn arminda test, urine HCG negati ve Not Available [employer] [address] [facility] , [place], [address], 01/09/2023 16:30:54 10/17/19 22 10/16/2021 CT, abdom en + pelvi s, w/o contr ast No observ ation record ed. [email or web address] [facility] [address], [place], [place], [address], 10/18/2021 23:08:20 11/22/19 22 11/21/2021 XR, chest , 2 view No observ ation record ed. [address], [place], [address], 11/25/2021 11:38:59 11/22/19 22 11/21/2021 imagi ng/di agnos tic resul t No observ ation record ed. [address], [place], [address], 11/25/2021 11:38:47 Result Notes None recorded. Problems Name Problem SNOMED Code Status Onset Date Resolution Date Notes Provider Name and Address Organization Details Recorded Time Anemia of pregnanc y 36411626 Completed 09/25/2019 Removal Reason: resolved Zainab Ch MD [address], [place], [address] , [place] [facility] 0 17:43:51 Body mass index 30+ - obesity 892916193 Completed 201709/24/2021 Araseli Mills APRN [address], [place], [address] , [place] [facility] 2 10:23:33 Polycyst ic ovaries Active 2017 Amelie [place] null, [place] - [facility] 2 13:09:23 Oligomen orrhea 78827888 Completed 201708/16/2021 Zainab Ch MD [address], [place], [address] , [place] [facility] 2 19:31:58 Abnormal uterine bleeding 40014733314 100 Completed 201708/16/2021 Zainab Ch MD [address], [place], [address] , [place] [facility] 2 19:31:46 Hidraden itis 08180213 Active 2017 Amelie [place] [facility] 2 13:09:13 Pelvic floor dysfunct ion 126895210 Active 2018 Amelie [place] [facility] 2 13:09:18 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 a 431933942 Active 2019 Amelie [place] [facility] 2 13:08:57 History of SARS-CoV -2 02901109326 6739147 Completed 202010/01/2020 Bibi Gordon [place] [facility] 1 11:37:52 Essentia l hyperten morelia 25128136 Active 2020 Amelie [place] [facility] 2 13:09:07 Migraine 09382387 Active 2020 Amelie [place] [facility] 2 13:09:17 Gastroes ophageal reflux disease 887415143 Active 2020 Amelie [place] [facility] 13:09:11 Chronic constipa tion 885008970 Active 2020 Amelie [place] [facility] 2 13:09:01 Dysuria 12630437 Active 2021 Amelie [place] [facility] 2 13:09:03 Body mass index 40+ - severely obese 471246866 Active 2021 Amelie [place] [facility] 2 13:08:55 Morbid obesity 241569300 Active 2022 Ag Crouch RN [address], [place], [address] , [place] [facility] 3 14:17:15 Problem Notes None recorded. Procedures Surgical History Date Name Laterality Status Provider Name and Address Organization Details Recorded Time 03/08/20 Colposcopy cancelled Amelie May[place] - [facility] 01/27/20 09:08:30 01/06/20 Date of Last Pap Smear completed Zainab Ch MD [address], [place], [address], [place] [facility] 10/30/2023 19:57:44 01/27/20 Colposcopy completed Zainab Ch MD [address], [place], [address], [place] [facility] 2021 20:07:34 01/27/20 21 Colposcopy completed Araseli Mills APRN [address], [place], [address], [place] [facility] 09/24/2021 09:21:24 01/27/20 21 Colposcopy completed Fatuma Tsai [place] [facility] 01/11/2022 10:21:09 07/18/19 21 Date of Last Colonoscopy completed Monica Vásquez [place] - [facility] 08/12/2021 14:09:13 09/11/19 20 LEEP Procedure completed Zainab Ch MD [address], [place], [address], [place] [facility] 09/11/2019 16:00:11 09/11/19 20 [...] Name and Address Organization Details Recorded Time 811726 Reglan medicatio n other moderate Not available [...] Body mass index (BMI) Body weight Systolic And Diastolic Provider Name and Address Organization Details Last Updated DateTime 07/20/2022 167.64 cm 40.8 kg/m2 851884.87 g 116/72 mm[Hg] Monica Vásquez [place] [facility] 07/20/2022 16:34:38 Date Recorded Body height Body mass index (BMI) Body weight Systolic And Diastolic Provider Name and Address Organization Details Last Updated DateTime 09/24/2021 167.64 cm 40.2 kg/m2 614941.5 g 116/78 mm[Hg] Erin Gibbons [facility] 09/24/2021 09:12:59 Date Recorded Body height Body mass index (BMI) Body weight Systolic And Diastolic Provider Name and Address Organization Details Last Updated DateTime 01/05/2023 167.64 cm 40 kg/m2 762707.91 g 118/82 mm[Hg] Ameliemau Mayfield [facility] 01/05/2023 14:16:13 Date Recorded Body height Body mass index (BMI) Body weight Systolic And Diastolic Provider Name and Address Organization Details Last Updated DateTime 01/12/2022 167.64 cm 40.2 kg/m2 237133.5 g 104/62 mm[Hg] Erin Gibbons [facility] 01/12/2022 14:34:42 Date Recorded Body height Body mass index (BMI) Body weight Systolic And Diastolic Provider Name and Address Organization Details Last Updated DateTime 02/09/2022 167.64 cm 39.1 kg/m2 250597.35 g 126/78 mm[Hg] Amelie [place] [facility] 02/09/2022 13:07:43 Social History Question Answer Notes LastModified by Organizat ion Details LastModified Time Tobacco Smoking Status Former Smoker Monica Vásquez [place], [place] [facility] 07/20/2022 16:27:52 Able To Swim? [...] Have You Had Close Contact With A Laboratory-roseanna crocker COVID-19 While That Case Was Ill? No Information not available 02/09/2022 In The 14 Days Before Symptom Onset, Have You Had Close Contact With A Person Who Is Under Investigation For COVID-19 While That Person Was Ill? No [email or web address] Information not available 02/09/2022 Have You Been [...] Or The Highest Degree You Have Received? [id number] Information not available 01/30/2018 How Many Days [...] Much Tobacco Do You Smoke? 0.5 PPD Information not available 02/09/2022 General Stress Level [...] used smokeless tobacco? Never used smokeless tobacco [email or web address] Information not available 12/05/2020 Are you currently [...] not available 01/30/2018 What is your occupation? [email or web address]) Information not available 07/20/2022 Mental Status Question Answer Note LastModified by Organizat ion Details LastModified Time Do you feel stressed (tense, restless, nervous, or anxious, or unable to sleep at night)? [id number] Information not available 08/12/2021 Do you have [...] Not available 2018 15:18:11 Mother Uterine leiomyoma [email or web address] Not available 2021 09:10:51 Medical History Condition [...] colitis N Cerebrovascular Disease N Depression N Guillain-[place] N Sleep Apnea N Aneurysm N Bronchitis [...] SNOMED-CT Code Diagnosis ICD10 Code Diagnosis Note [id number] Naheed Hidalgo APRN [address] [place] [address] 09/22/2017 12:33:02 09/22/2017 12:51:30 Eustachian tube disorder 00433407 H69.90 [id number] Naheed Hidalgo APRN [address] [place] [address] 01/03/2018 08:05:15 01/03/2018 08:45:21 Hypothyroidism 96648120 E03.9 Anemia 945996733 D64.9 Vitamin D deficiency 347 15429 E55.9 [id number] MD John Blount [employer] [address] [place] [address] [place] [address] 01/30/2018 15:07:25 01/30/2018 15:58:53 Pain in pelvis 47188819 R10.2 Venereal d isease screening 021482852 Z11.3 Oligomenorrhea 12358800 N91.5 Polycystic ovaries 60125 008 E28.2 Hidradenit is suppurativa 20880872 L73.2 [id number] MD John Blount BAG RE[employer] [address] [place] [address] [place] [address] 02/20/2018 13:18:56 02/20/2018 14:22:33 Oligomenorrhea 29963910 N91.5 Polycystic ovaries 64428 008 E28.2 Pain in pelvis 82741707 R10.2 [id number] MD John Blount BAG RE[employer] [address] [place] [address] [place] [address] 05/02/2018 09:02:13 05/02/2018 09:25:51 Abnormal uterine bleeding 2579231729 9100 N93.9 Oligomenorrhea 01769785 N91.5 Polycystic ovaries 05811 008 E28.2 Hidradenit is suppurativa 56052370 L73.2 [id number] Naheed Hidalgo APRN [address] [place] [address] 06/06/2018 09:51:55 06/06/2018 11:19:11 Acute bronchitis 38720699 J20.9 Cough 45544144 R05 Fatigue 78688597 R53.83 [id number] Sue Anglin APRN [address] [place] [address] 06/28/2018 12:48:18 06/28/2018 17:16:50 Acne 07432150 L70.9 We discussed support measures.P atient provided with printed informatio n on preventati ve and support measures for acne.We discussed starting Spironolac tone and will re-evaluat e in the future. Hidradenit is suppurativa 19075419 L73.2 Patient pleased with the current control with her H.S. She believes that the surgical wash is helping a great deal and will continue use. [id number] MD John Blount BAG REPA[employer] [address] [place] [address] [place] [id number] 09/11/2018 13:52:08 09/11/2018 14:32:49 Abnormal uterine bleeding 8894224015 9100 N93.9 Hidradenitis 77937214 L7 3.2 Polycystic ovaries 81189 008 E28.2 Venereal d isease screening 037091077 Z11.3 [id number] MD John Blount BAG RE[employer]ER [address] [place] [address] [place] [address] 11/02/2018 13:12:35 11/02/2018 13:46:27 Vaginal discharge 132202195 N89.8 Candidiasis of vagina 72 666459 B37.3 [id number] Naheed Hidalgo [employer] [address] [place] [address] 11/08/2018 14:48:45 11/08/2018 15:34:32 Fatigue 97660421 R53.83 Memory impairment 739599 006 R41.3 Dizziness and giddiness 907036665 R42 [id number] Naheed Hidalgo APRN [address] [place] [address] 11/21/2018 09:59:56 11/21/2018 15:29:14 Vitamin B12 deficiency (non anemic) 56698727 E53.8 Vitamin D deficiency 347 61587 E55.9 [id number] Naheed Hidalgo [employer] [address] [place] [address] 01/10/2019 16:00:28 01/10/2019 16:27:14 Acne 91506435 L70.9 Memory impairment 724282 006 R41.3 Chronic constipation 236 034514 K59.09 Food intolerance 9043359 0 K90.49 Impairment of balance 38 8847672 R26.89 Paresthesi a of lower extremity 450404410 R20.2 [id number] MD John Blount BAG RE[employer] [address] [place] [address] [place] [address] 03/14/2019 14:57:40 03/14/2019 15:48:16 Routine gynecologic examination done 0198407021 9101 Z01.419 Depression screening 171 277635 Z13.89 PHQ 9 negative Diet education 40114726 Z71.3 Counseling 462298210 Z71 .82 Exercise counseljohn nice Patient encouraged to exercise 30 minutes 5 days a week. Examinatio n of blood pressure 799511898 Z01.30 Normotensi ve Screening for malignant neoplasm of cervix 274698915 Z12.4 Pap collected Vaginal discharge 164091 006 N89.8 Pelvic ward or dysfunction 128936799 M62.9 Polycystic ovaries 03990 008 E28.2 Family his tory of breast cancer 912029389 Z80.3 [id number] MD John Blount BAG REPA[employer]ER [address] [place] [address] [place] [address] 08/21/2019 10:53:04 08/21/2019 11:54:03 Cervical intraepithelial neoplasia grade III with severe dysplasia 557387080 D06.9 [id number] MD John Blount BAG REPA[employer]ER [address] [place] [address] [place] [address] 09/11/2019 14:52:56 09/11/2019 15:49:37 Cervical intraepithelial neoplasia grade III with severe dysplasia 668170581 D06.9 [id number] MD John Blount BAG REPA[employer]ER [address] [place] [address] [place] [address] 09/25/2019 13:05:49 09/25/2019 13:21:20 History of loop electrosurgical excision procedure 5627310984 9102 Z98.890 Cervical intraepithelial neoplasia grade III with severe dysplasia 037051804 D06.9 [id number] MD John Blount BAG REPA[employer]ER [address] [place] [address] [place] [address] 11/08/2019 15:58:57 11/08/2019 16:26:39 Mass of left breast 6902334811 6252072 N63.20 [id number] MD John Blount BAG REPA[employer]ER [address] [place] [address] [place] [address] 02/20/2020 15:34:15 02/20/2020 16:34:29 Cervical intraepithelial neoplasia grade III with severe dysplasia 831920298 D06.9 Acne 04483682 L70.9 [id number] MD John Blount BAG REPA[employer]ER [address] [place] [address] [place] [address] 06/18/2020 10:30:20 06/18/2020 11:34:32 Polycystic ovary syndrome 364911765 E28.2 Trying to conceive 34267 9001 Z31.9 History of loop electrosurgical excision procedure 5581544664 9102 Z98.593 [id number] MD Mere [place] BAG REPA[employer]ER [address] [place] [address] [place] [address] 09/29/2020 15:14:02 09/29/2020 16:25:12 Screening for malignant neoplasm of cervix 282778731 Z12.4 Pap collected Cervical intraepithelial neoplasia grade III with severe dysplasia 045970436 D06.9 Dyspareunia 78890355 N94 .10 Mass of left breast 1224 633247 2511987 N63.20 Family his tory of breast cancer 602872170 Z80.3 [id number] Miranda Pa APRN [address] [place] [address] 10/01/2020 11:19:30 10/01/2020 12:03:02 Essential hypertension 16162167 I10 Advised to check BP daily at home. Follow-up in 1 month. Fatigue 02593114 R53.83 Migraine 81166784 G43.90 9 [id number] Miranda Pa APRN [address] [place] [address] 10/17/2020 08:06:55 10/17/2020 08:38:56 Essential hypertension 62898063 I10 Advised to check BP daily at home. Follow-up in 1 month. Migraine 36151632 G43.90 9 She has not used the sumatripta n yet, only Tylenol PRN. Body mass index 30+ - obesity 781891007 Z68.38 Hidradenit is suppurativa 25158562 L73.2 [id number] Miranda Pa APRN [address] [place] [address] 11/04/2020 08:18:10 11/04/2020 09:01:54 Migraine 79216653 G43.909 Dizziness 110146482 R42 Labs previously done at last visit were normal. Blurring o f visual image 745079427 H53.8 Neck pain 95824317 M54.2 [id number] Miranda Pa APRN [address] [place] [address] 12/05/2020 08:15:03 12/05/2020 09:06:31 Edema of lower extremity 269113760 R60.0 Resolved - advised on elevation of legs, adequate hydration, reduced sodium intakes, compressio n stockings PRN. F/U if worsens. Low back pain 203034418 M54.5 Thoracic back pain 09900 8004 M54.6 Migraine 81135233 G43.90 9 Advised to F/U with Neuro as scheduled. F/U in office needed before then. [id number] Miranda Pa APRN [address] [place] [address] 12/09/2020 13:55:58 12/09/2020 14:38:24 Body mass index 30+ - obesity 874120360 Z68.39 Chest pain 57945355 R07. 9 Labs performed previously . Will refer to Cardiology today. F/U in office if symptoms worsen, or go to ER for any chest pain lasting longer than 5 minutes or increased shortness of breath. Already had recent labs October 2020 - no need for additional labs today. Palpitations 19580713 R0 0.2 [id number] MD John Blount BAG REPAIRER [address] [place] [address] [place] [address] 01/26/2021 13:12:53 01/26/2021 14:39:11 Abnormal cervical Papanicolaou smear 712504621 R87.619 Screening for malignant neoplasm of cervix 157533569 Z12.4 [id number] MD Mere [place] BAG REPAIRER [address] [place] [address] [place] [address] 04/15/2021 08:58:03 04/15/2021 09:18:57 Abnormal cervical Papanicolaou smear 704383948 R87.619 Vaginal discharge 581179 006 N89.8 Dyspareunia 27123231 N94 .10 [id number] Corry Sears APRN [address] [place] [address] 06/18/2021 09:38:21 06/18/2021 10:27:06 Abdominal pain 82701826 R10.9 Depression screening 171 395899 Z13.31 Gastroesop hageal reflux disease 876088820 K21.9 Chronic constipation 236 440398 K59.09 Abdominal bloating 91047 9008 R14.0 Nausea 113944991 R11.0 Body mass index 40+ - severely obese 485924515 Z68.41 [id number] MD John Blount BAG REPAIRER [address] [place] [address] [place] [address] 08/12/2021 13:57:13 08/12/2021 14:45:12 Routine gynecologic examination done 8586284061 9101 Z01.419 Depression screening 171 563394 Z13.89 PHQ 9 negative Diet education 37652236 Z71.3 Counseling 919091950 Z71 .82 Exercise counsellin g. Patient encouraged to exercise 30 minutes 5 days a week. Examinatio n of blood pressure 333032924 Z01.30 Normotensi ve Vaccine de clined by patient 7348228209 02 Z28.21 Obesity 000570172 E66.9 Screening for malignant neoplasm of cervix 201383160 Z12.4 Hidradenit is suppurativa 04846624 L73.2 [id number] Luis Mitchell MD [address] [place] [address] 09/10/2021 14:58:29 09/10/2021 15:35:57 Pharyngitis 469756067 J02.9 [id number] Araseli Mills APRN [employer] [address] [place] [address] [place] [address] 09/24/2021 08:40:43 09/24/2021 09:34:52 Dysuria 08414967 R30.9 Chronic constipation 236 396762 K59.09 Body mass index 40+ - severely obese 642357563 Z68.41 [id number] Alis Mays DO [employer] B[employer] RE[employer] [address] [place] [address] [place] [address] 01/12/2022 14:23:40 01/12/2022 15:14:15 Irregular periods 25891416 N92.6 Sterilizat ion requested [id number] Z30.2 Abnormal c ervical Papanicolaou smear [id number] R87.619 Chronic in terstitial cystitis 113683531 N30.10 [id number] Zainab Ch MD [employer] [address] [place] [address] SARAN Sanchez [id number] 02/09/2022 13:00:30 02/09/2022 13:30:25 Pre-surgery evaluation [id number] Z01.818 Sterilizat ion requested [id number] Z30.2 Contracept ion care management [id number] Z30.9 Condyloma acuminata of vulva 610623061 A63.0 [id number] Zainab Ch MD [employer] [address] [place] [address] SARAN Sanchez [id number] 07/20/2022 16:00:19 07/20/2022 17:05:27 Routine gynecologic examination done [id number] 9101 Z01.419 Depression screening 171 780580 Z13.89 PHQ 9 negative Examinatio n of blood pressure 924672965 Z01.30 Normotensi ve Body mass index 40+ - severely obese 729062241 Z68.41 Screening for malignant neoplasm of cervix 982423256 Z12.4 Vaginal pain 39500555 R1 0.2 Dyspareunia 96729849 N94 .10 Sebaceous cyst of skin 823099685 L72.3 [id number] MD John Blount BAG REPAIRER [address] [facility] SARAN Sanchez [id number] 01/05/2023 13:55:12 01/05/2023 14:44:41 Venereal disease screening 334747308 Z11.3 Postcoital bleeding 4888 0000 N93.0 Abnormal u terine bleeding [id number] 9100 N93.9 Health Concerns Section Related Observation LastModified by Organization Detai ls LastModified Time None Recorded Concern Status LastModified by Organization Details LastModified Time None Recorded Advance Directives Directive N: Payers Insurance Date Sequence Insurance Name Policy Number Policy Mai Covered Member ID Mai Member ID Guarantor Name 04/23/2023 [id number] [id number] [place] Araceli M [place] [id number] Katy Gill [place] 01/12/2022 1 [employer] [facility] (MEDICAID HMO) Araceli [place] [id number] Katy Gill [place] 04/23/2023 1 [employer] [facility] (MEDICAID HMO) Araceli Gill [place] [id number] Fabyollie Gill [place] 08/21/2019 1 *SELF PAY* Faby Gill [place] 02/10/2022 1 [id number] Katy Gill [place] [id number] Katy Gill [place] Notes Date Note Type [...] frequency, lots of pressure, cramping. Araseli Gene, [employer] [address], [place], [address], [place] - [facility] 09/24/2021 10:25:12 01/12/2022 text/html [...] including dietary changes and OTC prelief. Alis Mays jaja, [place] - [facility] 01/12/2022 15:06:27 02/09/2022 text/html Hal [...] surgery. 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 She reports that she is in [...] Zainab Ch MD [address], [place], [address], [place] - [facility] 07/29/2022 13:27:41 01/05/2023 text/html [...] Zainab Ch MD [address], [place], [address], [place] - [facility] 01/09/2023 16:33:00 OBGyn Episode Ob Episode Information Episode Created Date Number of Fetuses Patient Bloodtype Patient rh Status Prepregnancy Weight lbs Domestic Partner Domestic Partner Phone Father Name Ct Mri Technologist Status 01/31/20 18 1 CLOSED Fetus Data [...] Comments 5 Regional-Ep idural 40 false 17 [facility] Discharge Information Feeding Method Contraceptive Method Maternal HG B and HCT Levels
--- NOTE | 2025-01-23 09:00 | US_ITS ---
PROCEDURE: US OB /MATERNAL DETAIL CLINICAL INDICATION: 20 week anatomy scan COMPARISON: US US TRANSVAGINAL from 07/03/2024 US US TRANSVAGINAL from 10/10/2024 FINDINGS: Transabdominal sonographic images of the pelvis were obtained. From her established due date she is . Single viable intrauterine gestation. Breech position. Placenta: Posteriorplacenta grade 1. The placenta measures 2.9 cm away from the internal os. There appears to be an accessory lobe anteriorly. There is an average amount of fluid. The cervix appears satisfactory. Closed and measuring 3.3 cm in length. Complete survey performed and was unremarkable on the submitted images as in PACS. No discrete anomalies identified on survey imaging by technologist. Active fetus. Three-vessel cord with satisfactory umbilical cord insertion. 4- chamber heart noted. Situs, aortic arch, LVOT, RVOT, three-vessel view appear normal. The images were incomplete due to position. Survey of brain & ventricles Unremarkable. Cerebellum, thalamus, choroid plexus, cisterna magna appear normal. Face and neck survey unremarkable. Profile, nasion, lips and nose appeared normal. Diaphragm and chest views unremarkable. Abdomen: Both kidneys noted and unremarkable. Stomach and bladder noted and satisfactory. Spine: Survey of the spine satisfactory with no anomalies identified nor imaged. Cervical, thoracic, lower spine appear normal. Both arms and legs noted. Amniotic Fluid: Adequate. MVP 3.72 cm. Measurements: Average ultrasound age 20weeks 4days. Estimated due date by ultrasound age 1106/08/2025. Estimated weight 350g BPD = 20weeks 5days HC = 20weeks 5days AC = 21weeks 0 days FL = 19weeks 5days Growth Percentile= 67 Heart Rate = recorded but not documented. Cerebellum = 20weeks 3days Humerus = 20weeks 2days HC/AC is 1.15 FL/BPD is 0.64 FL/AC is 0.2 IMPRESSION: 1. Viable fetus in the breech presentation with a posterior placenta grade 1. The placenta appears to be well away from the internal cervical os. An accessory lobe may be present anteriorly. 2. The fluid is within normal limits with an MVP 3.72 cm. 3. Anatomical scan appears normal. 4. Cardiac scan was incomplete due to position and would suggest repeat scan in 2-3 weeks. Would suggest another look at the accessory lobe anteriorly as well at that time. 5. biometry is consistent with the dates. Dictated by: Giacomo Webster MD 01/23/2025 16:46 Giacomo Webster MD in [place] 01/23/2025 16:46
== END 2025-01-23 23:59 | disposition home or self-care (01) ==
PROVIDERS: PCP Obstetrics & Gynecology; Visit Provider Obstetrics & Gynecology
DX: O32.1XX0 Maternal care for breech presentation, not applicable or unspecified (principal); O28.3 Abnormal ultrasonic finding on antenatal screening of mother; O99.212 Obesity complicating pregnancy, second trimester; E66.9 Obesity, unspecified; Z3A.20 20 weeks gestation of pregnancy
CPT/HCPCS: 76811

== ENCOUNTER 2025-01-29 09:01 | Emergency (ER) | payer OTHER, SELFPAY ==
[2025-01-29] VITALS (8 sets, daily range): BP systolic 90–129; BP diastolic 47–71; PULSE 73–79; RESP 15–25; TEMP 36.6–36.9; O2SAT 95–100; BMI 42.7
--- NOTE | 2025-01-29 09:13 | ECG_ITS ---
APPROVED REPORT Exam: Resting ECG HR:71 bpm ECG Measurements Heart Rate 71 AXES AZ 123 P 34 QRSd 88 QRS 66 QT 367 T 51 QTc 390 Conclusion Normal sinus rhythm without acute ST or T wave changes concerning for ischemia Electronically signed by : Amie Kelley, 01/30/2025 07:16:34
--- OUTSIDE RECORDS SUMMARY | 2025-01-29 09:14 | XMS_ITS | Clinical Summary ---
Author Organization Healthcare Address [address] [place] [address] Care Team Providers Care Compliance Administrator Name Role Phone Miranda Pa HAILEY Primary [...] Td or Tdap) 02/16/2016 02/15/2006, 08/07/1999, 1995 [id number] Vaccine (1 - 2023- season) 2024 UKY-Influenza [...] patient's age to complete this topic [facility] Care Teams Compliance Administrator Relationship Specialty Start Date End Date Miranda Pa APRN [address] [place] [address] Dr Lopez SARAN [id number] PCP - General 11/28/20
--- OUTSIDE RECORDS SUMMARY | 2025-01-29 09:14 | XMS_ITS | Data Portability ---
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 Lab cytology report, thin prep, smear or scraping, cervical or vaginal 2022 023 LAUREL [facility], [address], [place], [address], 3 12:13:17 TSH + free T4, serum 2022 023 LAUREL [facility], [address], [place], [address], 3 10:36:51 testosteron e, free + total, serum 2022 023 MALMO [facility], [address], [place], [address], 3 10:36:52 HbA1c (hemoglobin A1c), blood 2022 023 MALMO [facility], [address], [place], [address], 3 10:36:55 test, urine 2022 023 [facility] 2 Keo [employer]er [employer], [address] [place] [address] , [place], [address], 3 16:31:01 vaginal pathogens panel, AVIVA+probe, vaginal fluid 2022 023 MALMO [facility], [address], [place], [address], 3 10:36:50 HIV 1 + 2, meaningful use set 2022 023 MALMO [facility], [address], [place], [address], 3 10:36:52 RPR (rapid plasma reagin), serum 2022 023 MALMO [facility], [address], [place], [address], 3 10:36:53 HBsAg (hepatitis B surface Ag), EIA, serum 2022 023 MALMO [facility], [address], [place], [address], 3 10:36:56 Hepatitis C IgG Ab, qual, serum 2022 023 MALMO [facility], [address], [place], [address], 3 10:36:54 cytology report, thin prep, smear or scraping, cervical or vaginal 2022 023 MALMO [facility], [address], [place], [address], 3 13:07:39 CBC w/ auto diff 2021 022 [facility]( [facility]), [address] [place] [address] [place], [address], 2 12:15:31 CMP, serum or plasma 2021 022 [facility]( Lab), [address] [place] [address] [place], [address], 2 16:27:52 urinalysis, reflex culture 2021 [facility]( Lab), [address] [place] [address] [place], [address], 2 18:13:34 Pap smear tests - FPAR 2.0 set 2021 022 MALMO [facility], [address], [place], [address], 2 13:09:33 test, urine 2021 022 [email or web address] [employer]o [employer], [address] [place] [address] , [place], [address], 2 14:59:48 culture, urine 2021 022 MALMO [facility], [address], [place], [address], 2 22:07:17 urinalysis, dipstick 2021 022 [email or web address] Keo [employer], [address] [place] [address] , [place], [address], 09:23:09 Referral gynecologic surgery referral - lap b/l salpingecto my 2021 022 [email or web address] Not available 12:43:16 Procedures None recorded. Surgeries None recorded. Imaging None recorded. Medication Orders Prelief 65 mg tablet 2021 022 [email or web address] [facility] - [address], [place], [address], 13:08:44 Patient TargetsNo targets recorded. Patient Instructions Encounter Date Encounter Id Patient Instructions Last Modified By Organization Details Last Modified Time 09/24/2021 [id number] Increase fluids Avoid soda and tea Will send urine for culture and call with results. If urine culture is positive, will call in an antibiotic. [email or web address] Not available 09/24/2021 10:24:55 01/12/2022 [id number] Interstitial cystitis questionnaire given and score positive for IC. Discussed IC care guide as well as first line treatments including dietary changes and OTC prelief. Rx prelief given Pap obtained Will sign sterilization paperwork and RTO for preop for lap b/l salpingectomy. 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 Will grief counsellor on PNV at next visit -Depression screening: PHQ 9 negative -Family Hx: Mother with hx of cervical cancer and leiomyoma Vaginal pain/pelvic pain/dysuapreunia: will get ER records. Pt reports enlarged mesentry. Will get CT scan results. Return for pelvic US Brienbessy deisres excision of sebaceous cysts from her vulva. Will perform this as well upon return [email or web address] Not available 07/29/2022 13:27:23 01/05/2023 [id number] Given post-coita l bleeding and hx of cervical dysplasia, pap collected, but also recommended colpo and she agrees. Given AUB, check labs and return for US. Also performing for pelvic pain Full STI testing performed today nancy Not available 01/09/2023 16:32:35 Reason for Referral Gynecologic Surgery Referral for Sterilization requested lap b/l salpingectomy Referring Physician: Alis Mays, SPRAYER HAND, Encounter Date: 01/12/2022 Results Created Date Observation Date Name Description Value Unit Range Abnormal Flag Note LastModifiedBy Organization Detail LastModifiedTime 09/10/19 22 09/10/2021 rapid strep group A, throa t Strep negati ve Not Available [address] , [place], [address], 09/10/2021 15:09:41 09/25/19 22 09/25/2021 URINE CULTU REEVIN NE urine culture, routine Final report Not Available [facility] ([facility]) [address] [place], [address], 09/25/2021 22:07:17 09/25/19 22 09/25/2021 URINE CULTU REEVIN NE result 1 No growth Not Available [facility] ([facility]) [address] [place], [address], 09/25/2021 22:07:17 09/25/19 22 09/24/2021 urina lysis , dipst ick Leukocytes Modera te Not Available [employer] [address] [place] [address] , [place], [address], 09/24/2021 09:11:16 09/25/19 22 09/24/2021 urina lysis , dipst ick Nitrite negati ve Not Available [employer] [address] [place] [address] , [place], [address], 09/24/2021 09:11:16 09/25/19 22 09/24/2021 urina lysis , dipst ick Urobilinogen .2 Not Available [facility] ille Sewer Builder [address] [place] [address] , [place], [address], 09/24/2021 09:11:16 09/25/19 22 09/24/2021 urina lysis , dipst ick Protein Negati ve Not Available [facility] [address] [place] [address] , [place], [address], 09/24/2021 09:11:16 09/25/19 22 09/24/2021 urina lysis , dipst ick pH 6.5 Not Available [facility]/[address] , [place], [address], 09/24/2021 09:11:16 09/25/19 22 09/24/2021 urina lysis , dipst ick Blood Modera te Not Available [facility]/[address] , [place], [address], 09/24/2021 09:11:16 09/25/19 22 09/24/2021 urina lysis , dipst ick Specific [place] 1.030 Not Available [facility] lle Sewer Builder [address] [place] [address] , [place], [address], 09/24/2021 09:11:16 09/25/19 22 09/24/2021 urina lysis , dipst ick Ketone Negati ve Not Available [facility] [address] [place] [address] , [place], [address], 09/24/2021 09:11:16 09/25/19 22 09/24/2021 urina lysis , dipst ick Bilirubin Negati ve Not Available [facility] [address] [place] [address] , [place], [address], 09/24/2021 09:11:16 09/25/19 22 09/24/2021 urina lysis , dipst ick Glucose Negati ve Not Available [employer] [address] [place] [address] , [place], [address], 09/24/2021 09:11:16 09/25/19 22 09/24/2021 urina lysis , dipst ick Appearance Slight ly Cloudy Not Available [employer] [address] [place] [address] , [place], [address], 09/24/2021 09:11:16 09/25/19 22 09/24/2021 urina lysis , dipst ick Color Yellow Not Available [employer] [address] [place] [address] , [place], [address], 09/24/2021 09:11:16 01/13/20 22 01/14/2022 IGP,R FX APTIM A HPV ALL PTH diagnosis: Commen t NEGAT BALBINA FOR INTRA EPITH ELIAL LESIO N OR MAGGIE SMITH . PREDO RANDA CE OF [place] BACIL LI CONSI STENT WITH SHIFT IN VAGIN AL ARSLAN IS PRESE NT. Not Available [facility] ([facility]) [address] [facility], [place], [address], 01/14/2022 13:09:33 01/13/20 22 01/14/2022 IGP,R FX APTIM A HPV ALL PTH specimen adequacy: Commen t Satis facto ry for evalu ation . Endoc ervic al and/o r squam ous metap lasti c cells (endo cervi kim compo nent) are prese nt. Not Available [facility] ([facility]) [address] [facility], [place], [address], 01/14/2022 13:09:33 01/13/20 22 01/14/2022 IGP,R FX APTIM A HPV ALL PTH clinician provided ICD10: Commen t R87.6 19 Not Available [facility] ([facility]) [address] [place], [address], 01/14/2022 13:09:33 01/13/20 22 01/14/2022 IGP,R FX APTIM A HPV ALL PTH performed by: Alejandro Huston Not Available [facility] ([facility]) [address] [place], [address], 01/14/2022 13:09:33 01/13/20 22 01/14/2022 IGP,R FX APTIM A HPV ALL PTH . . Not Available [facility] ([facility]) [address] [place], [address], 01/14/2022 13:09:33 01/13/20 22 01/14/2022 IGP,R FX [...] ts do occur . Not Available [facility] ([facility]) [address] [place], [address], 01/14/2022 13:09:33 01/13/20 22 01/14/2022 IGP,R FX APTIM A HPV ALL PTH test methodology: Monae aldana This liqui d based ThinP rep(R ) pap test was scree vahe with the use of an image guide anatoliy gill. Not Available [facility] ([facility]) [address] [place], [address], 01/14/2022 13:09:33 01/13/20 22 01/14/2022 IGP,R FX APTIM A HPV ALL PTH . Commen t The HPV DNA refle x crite matthias were not met with this speci men resul t there fore, no HPV testi ng was perfo rmed. Not Available [facility] ([facility]) [address] [facility], [place], [address], 01/14/2022 13:09:33 01/13/20 22 01/12/2022 pregn arminda test, urine HCG negati ve Not Available [employer] [address] [facility] , [place], [address], 01/12/2022 14:37:35 02/10/20 22 02/09/2022 CBC W/AUT O DIFFE RENTI AL note See Note Order ing Provi tata: Yolanda Ch (Appl eton) Not Available [address] , [place], [address], 02/09/2022 14:27:37 02/10/20 22 02/09/2022 CBC W/AUT O DIFFE RENTI AL white blood cell 8.4 10e3/ uL 4.5-13 .0 normal Not Available [address] Neha Martinez, [place], [address], 02/09/2022 14:27:37 02/10/20 22 02/09/2022 CBC W/AUT O DIFFE RENTI AL red blood cell 4.27 10e6/ uL 3.80-5 .10 normal Not Available [address] [place], [address], 02/09/2022 14:27:37 02/10/20 22 02/09/2022 CBC W/AUT O DIFFE RENTI AL hemoglobin 12.8 g/dL 11.5-1 5.3 normal Not Available [address] , [place], [address], 02/09/2022 14:27:37 02/10/20 22 02/09/2022 CBC W/AUT O DIFFE RENTI AL hematocrit 38.6 % 34.0-4 6.0 normal Not Available [address] Neha Martinez, [place], [address], 02/09/2022 14:27:37 02/10/20 22 02/09/2022 CBC W/AUT O DIFFE RENTI AL mean cell volume 90 fL 78.0-9 8.0 normal Not Available [address] Neha Martinez, [place], [address], 02/09/2022 14:27:37 02/10/20 22 02/09/2022 CBC W/AUT O DIFFE RENTI AL mean cell HGB 30.0 pg 25.0-3 5.0 normal Not Available [address] Neha Martinez, [place], [address], 02/09/2022 14:27:37 02/10/20 22 02/09/2022 CBC W/AUT O DIFFE RENTI AL mean cell HGB concentratio n 33.2 g/dL 31.0-3 6.0 normal Not Available [address] [place]ha Martinez, [place], [address], 02/09/2022 14:27:37 02/10/20 22 02/09/2022 CBC W/AUT O DIFFE RENTI AL red cell distribution width 13.3 % 11.0-1 5.0 normal Not Available [address] Neha Martinez, [place], [address], 02/09/2022 14:27:37 02/10/20 22 02/09/2022 CBC W/AUT O DIFFE RENTI AL platelet count 223 10e3/ uL 150-40 0 normal Not Available [address] Neha Martinez, [place], [address], 02/09/2022 14:27:37 02/10/20 22 02/09/2022 CBC W/AUT O DIFFE RENTI AL immature granulocyte % 0 0-1 normal Not Available [address] , [place], [address], 02/09/2022 14:27:37 02/10/20 22 02/09/2022 CBC W/AUT O DIFFE RENTI AL neutrophil % 71 % 35-75 normal Not Available [address] , [place], [address], 02/09/2022 14:27:37 02/10/20 22 02/09/2022 CBC W/AUT O DIFFE RENTI AL lymphocyte % 23 % 10-50 normal Not Available [address] , [place], [address], 02/09/2022 14:27:37 02/10/20 22 02/09/2022 CBC W/AUT O DIFFE RENTI AL monocyte % 6 % 0-15 normal Not Available [address] , [place], [address], 02/09/2022 14:27:37 02/10/20 22 02/09/2022 CBC W/AUT O DIFFE RENTI AL eosinophil % 0 % 0-5 normal Not Available [address] Neha Martinez, [place], [address], 02/09/2022 14:27:37 02/10/20 22 02/09/2022 CBC W/AUT O DIFFE RENTI AL basophil % 0 % 0-5 normal Not Available [address] , [place], [address], 02/09/2022 14:27:37 02/10/20 22 02/09/2022 CBC W/AUT O DIFFE RENTI AL immature granulocyte # 0.02 x1000 /uL 0-0.05 normal Not Available [address] , [place], [address], 02/09/2022 14:27:37 02/10/20 22 02/09/2022 CBC W/AUT O DIFFE RENTI AL neutrophil # 5.90 x1000 /uL 1.50-8 .00 normal Not Available [address] , [place], [address], 02/09/2022 14:27:37 02/10/20 22 02/09/2022 CBC W/AUT O DIFFE RENTI AL lymphocyte # 1.92 x1000 /uL 1.20-5 .20 normal Not Available [address] , [place], [address], 02/09/2022 14:27:37 02/10/20 22 02/09/2022 CBC W/AUT O DIFFE RENTI AL monocyte # 0.49 x1000 /uL 0.40-0 .90 normal Not Available [address] Neha Martinez, [place], [address], 02/09/2022 14:27:37 02/10/20 22 02/09/2022 CBC W/AUT O DIFFE RENTI AL eosinophil # 0.02 x1000 /uL 0.00-0 .50 normal Not Available [address] Neha Martinez, [place], [address], 02/09/2022 14:27:37 02/10/20 22 02/09/2022 CBC W/AUT O DIFFE RENTI AL basophil # 0.02 x1000 /uL 0.00-0 .30 normal Not Available [address] , [place], [address], 02/09/2022 14:27:37 02/10/20 22 02/09/2022 CBC W/AUT O DIFFE RENTI AL NRBC automated 0.0 /100_ WBC Not Available [address] , [place], [address], 02/09/2022 14:27:37 02/10/20 22 02/09/2022 CBC W/AUT O DIFFE SIMÓN VOGT performing lab see note ML - [facility] [address] [facility] [id number] Not Available [address] , [place], [address], 02/09/2022 14:27:37 02/10/20 22 02/09/2022 COMP METAB OLIC PANEL note See Note Order ing Provi tata: Yolanda Ch (Appl eton) Not Available [address] , [place], [address], 02/09/2022 14:41:10 02/10/20 22 02/09/2022 COMP METAB OLIC PANEL sodium 138 mmol/ L 136-14 5 normal Not Available [address] , [place], [address], 02/09/2022 14:41:10 02/10/20 22 02/09/2022 COMP METAB OLIC PANEL potassium 4.1 mmol/ L 3.5-5. 1 normal Not Available [address] , [place], [address], 02/09/2022 14:41:10 02/10/20 22 02/09/2022 COMP METAB OLIC PANEL chloride 103 mmol/ L 98-107 normal Not Available [address] , [place], [address], 02/09/2022 14:41:10 02/10/20 22 02/09/2022 COMP METAB OLIC PANEL carbon dioxide 26 mmol/ L 24-33 normal Not Available [address] , [place], [address], 02/09/2022 14:41:10 02/10/20 22 02/09/2022 COMP METAB OLIC PANEL anion gap 13.1 mmol/ L 10-20 normal Not Available [address] , [place], [address], 02/09/2022 14:41:10 02/10/20 22 02/09/2022 COMP METAB OLIC PANEL glucose 86 mg/dL 70-99 normal Not Available [address] Neha Martinez, [place], [address], 02/09/2022 14:41:10 02/10/20 22 02/09/2022 COMP METAB OLIC PANEL blood urea nitrogen 12 mg/dL 7-18 normal Not Available [address] , [place], [address], 02/09/2022 14:41:10 02/10/20 22 02/09/2022 COMP METAB OLIC PANEL creatinine 1.06 mg/dL 0.55-1 .02 high Not Available [address] Neha Martinez, [place], [address], 02/09/2022 14:41:10 02/10/20 22 02/09/2022 COMP METAB OLIC PANEL BUN/creatini ne ratio 11 12-20 low Not Available [address] Neha Martinez, [place], [address], 02/09/2022 14:41:10 02/10/20 22 02/09/2022 COMP METAB OLIC PANEL total protein 7.8 g/dL 6.4-8. 2 normal Not Available [address] , [place], [address], 02/09/2022 14:41:10 02/10/20 22 02/09/2022 COMP METAB OLIC PANEL albumin 4.0 g/dL 3.4-5. 0 normal Not Available [address] [place], [address], 02/09/2022 14:41:10 02/10/20 22 02/09/2022 COMP METAB OLIC PANEL globulin 3.8 g/dL 1.5-4. 0 normal Not Available [address] [place], [address], 02/09/2022 14:41:10 02/10/20 22 02/09/2022 COMP METAB OLIC PANEL albumin/glob ulin ratio 1.1 0.5-2. 0 normal Not Available [address] [place], [address], 02/09/2022 14:41:10 02/10/20 22 02/09/2022 COMP METAB OLIC PANEL calcium 9.4 mg/dL 8.5-10 .1 normal Not Available [address] , [place], [address], 02/09/2022 14:41:10 02/10/20 22 02/09/2022 COMP METAB OLIC PANEL osmolality serum calculated 274 mOsm/ kg 272-28 8 normal Not Available [address] [place], [address], 02/09/2022 14:41:10 02/10/20 22 02/09/2022 COMP METAB OLIC PANEL glom filtr rate (estimated) > 60 mL/mi n >60 normal Not Available [address] [place], [address], 02/09/2022 14:41:10 02/10/20 22 02/09/2022 COMP METAB OLIC PANEL GFR est (if -amer ican) > 60 mL/mi n >60 normal Not Available [address] [place], [address], 02/09/2022 14:41:10 02/10/20 22 02/09/2022 COMP METAB OLIC PANEL bilirubin total 0.4 mg/dL 0.2-1. 0 normal Use of this assay is not recom maxim d for patie nts under going treat ment with Eltro mbopa g due to the poten tial for false ly eleva idris resul ts. Not Available [address] , [place], [address], 02/09/2022 14:41:10 02/10/20 22 02/09/2022 COMP METAB OLIC PANEL SGOT/AST 12 U/L 15-37 low Not Available [address] [place], [address], 02/09/2022 14:41:10 02/10/20 22 02/09/2022 COMP METAB OLIC PANEL SGPT/ALT 18 U/L 14-59 normal Not Available [address] , [place], [address], 02/09/2022 14:41:10 02/10/20 22 02/09/2022 COMP METAB OLIC PANEL alkaline phosphatase total 35 U/L 46-116 low Not Available [address] , [place], [address], 02/09/2022 14:41:10 02/10/20 22 02/09/2022 COMP METAB OLIC PANEL performing lab see note - [facility] R [address] [facility] [id number] Not Available [address] [place], [address], 02/09/2022 14:41:10 02/10/20 22 02/09/2022 URINA LYSIS COMPL ETE note See Note Order ing Provi tata: Yolanda Ch (Appl eton) Not Available [address] [place], [address], 02/09/2022 14:42:16 02/10/20 22 02/09/2022 URINA LYSIS COMPL ETE UA method of collection CLEAN CATCH Not Available [address] Ne[place] Martinez, [place], [address], 02/09/2022 14:42:16 02/10/20 22 02/09/2022 URINA LYSIS COMPL ETE UA color LT YELLOW yellow Not Available [address] , [place], [address], 02/09/2022 14:42:16 02/10/20 22 02/09/2022 URINA LYSIS COMPL ETE UA appearance SL.MICHELE UDY clear Not Available [address] , [place], [address], 02/09/2022 14:42:16 02/10/20 22 02/09/2022 URINA LYSIS COMPL ETE UA glucose dipstick NEGATI VE negati ve Not Available [address] [place], [place], [address], 02/09/2022 14:42:16 02/10/20 22 02/09/2022 URINA LYSIS COMPL ETE UA bilirubin dipstick NEGATI VE negati ve Not Available [address] [place], [place], [address], 02/09/2022 14:42:16 02/10/20 22 02/09/2022 URINA LYSIS COMPL ETE UA ketone dipstick NEGATI VE negati ve Not Available [address] [place], [address], 02/09/2022 14:42:16 02/10/20 22 02/09/2022 URINA LYSIS COMPL ETE UA specific gravity 1.010 1.005- 1.030 normal Not Available [address] [place], [address], 02/09/2022 14:42:16 02/10/20 22 02/09/2022 URINA LYSIS COMPL ETE UA blood dipstick 3+ negati ve abnormal Not Available [address] [place], [address], 02/09/2022 14:42:16 02/10/20 22 02/09/2022 URINA LYSIS COMPL ETE UA pH dipstick 7.0 5.0-9. 0 normal Not Available [address] [place], [address], 02/09/2022 14:42:16 02/10/20 22 02/09/2022 URINA LYSIS COMPL ETE UA protein dipstick NEGATI VE negati ve Not Available [address] [place], [address], 02/09/2022 14:42:16 02/10/20 22 02/09/2022 URINA LYSIS COMPL ETE UA urobilinogen dipstick NEGATI VE mg/dL <1 Not Available [address] , [place], [address], 02/09/2022 14:42:16 02/10/20 22 02/09/2022 URINA LYSIS COMPL ETE UA nitrite dipstick NEGATI VE negati ve Not Available [address] [place], [address], 02/09/2022 14:42:16 02/10/20 22 02/09/2022 URINA LYSIS COMPL ETE UA leukocyte esterase dipstick 2+ negati ve abnormal Not Available [address] [place], [address], 02/09/2022 14:42:16 02/10/20 22 02/09/2022 URINA LYSIS COMPL ETE UA RBC 0-5 RBC/h pf none seen abnormal Not Available [address] , [place], [address], 02/09/2022 14:42:16 02/10/20 22 02/09/2022 URINA LYSIS COMPL ETE UA WBC 0-5 WBC/h pf 0-5 Not Available [address] , [place], [address], 02/09/2022 14:42:16 02/10/20 22 02/09/2022 URINA LYSIS COMPL ETE UA epithelial cells 21-30 SQUAMO US epi/h pf 0-5 abnormal Not Available [address] , [place], [address], 02/09/2022 14:42:16 02/10/20 22 02/09/2022 URINA LYSIS COMPL ETE UA bacteria 1+ none seen abnormal Not Available [address] , [place], [address], 02/09/2022 14:42:16 02/10/20 22 02/09/2022 URINA LYSIS COMPL ETE UA mucus NONE SEEN none seen Not Available [address] , [place], [address], 02/09/2022 14:42:16 02/10/20 22 02/09/2022 URINA LYSIS COMPL ETE UA amorphous sediment NONE SEEN none seen Not Available [address] , [place], [address], 02/09/2022 14:42:16 02/10/20 22 02/09/2022 URINA LYSIS COMPL ETE comment 1 >20 EPI'S No Cultu re Perfo rmed. Speci men faile d Refle x Cultu re Crite matthias. Not Available [address] [place], [address], 02/09/2022 14:42:16 02/10/20 22 02/09/2022 URINA LYSIS COMPL ETE performing lab see note - [facility] R [address] [facility] [id number] Not Available [facility] [address], [place], [address], 02/09/2022 14:42:16 07/20/19 23 07/23/2022 IGP, APTIM A HPV, RFX 16/18 ,45 HPV aptima Negati ve negati ve This nucle ic acid ampli ficat ion test detec ts fourt een high- risk HPV types (16,1 8,31, 33,35 ,39,4 5,51, 52,56 ,58,5 9,66, 68) witho ut diffe renti ation . Not Available [facility] (Lab) [id number] [address], [place], [address], 07/25/2022 13:07:39 07/20/19 23 07/25/2022 IGP, APTIM A HPV, RFX 16/18 ,45 diagnosis: Commen t NEGAT BALBINA FOR INTRA EPITH ELIAL LESIO N OR MAGGIE SMITH . PREDO MINAN CE OF [place] BACIL LI CONSI STENT WITH SHIFT IN VAGIN AL ARSLAN IS PRESE NT. Not Available [facility] (Lab) [address] [address], [place], [address], 07/25/2022 13:07:39 07/20/19 23 07/25/2022 IGP, APTIM A HPV, RFX 16/18 ,45 specimen adequacy: Commen t Satis facto ry for evalu ation . No endoc ervic al compo nent is ident ified . Not Available [facility] (Lab) [address] [facility], [place], [address], 07/25/2022 13:07:39 07/20/19 23 07/25/2022 IGP, APTIM A HPV, RFX 16/18 ,45 clinician provided ICD10: Monae aldana Z12.4 Not Available [facility] (Lab) [id number] [place] [address], [place], [address], 07/25/2022 13:07:39 07/20/19 23 07/25/2022 IGP, APTIM A HPV, RFX 16/18 ,45 performed by: Monae Garcia Sr, Cytojovan aldana (ASCP ) Not Available [facility] (Lab) [address] [address], [place], [address], 07/25/2022 13:07:39 07/20/19 23 07/25/2022 IGP, APTIM A HPV, RFX 16/18 ,45 . . Not Available [facility] (Lab) [id number] [place] [address], [place], [address], 07/25/2022 13:07:39 07/20/19 23 07/25/2022 IGP, APTIM [...] Not Available [facility] ([facility]) [address] [address], [place], [address], 07/25/2022 13:07:39 07/20/19 23 07/25/2022 IGP, APTIM A HPV, RFX 16/18 ,45 test methodology: Monae aldana This liqui d based ThinP rep(R ) pap test was scree vahe with the use of an image guide anatoliy lance Not Available [facility] (Lab) [address] [place] [address], [place], [address], 07/25/2022 13:07:39 07/20/19 23 07/25/2022 IGP, APTIM A HPV, RFX 16/18 ,45 HPV genotype reflex Commen t Crite matthias not met, HPV Genot ype not perfo rmed. Not Available [facility] ([facility]) [address], [place], [address], 07/25/2022 13:07:39 01/06/20 23 01/06/2023 NUSWA B VAGIN ITIS PLUS (VG+) atopobium vaginae Low - 0 score Not Available [facility] ([facility]) [address] [place], [address], 01/11/2023 10:36:49 01/06/20 23 01/06/2023 NUSWA B VAGIN ITIS PLUS (VG+) bvab 2 Modera te - 1 score Not Available [facility] ([facility]) [address] [facility], [place], [address], 01/11/2023 10:36:49 01/06/20 23 01/06/2023 NUSWA B [...] Drug Admin istra tion. Not Available [facility] ([facility]) [address] [place], [address], 01/11/2023 10:36:49 01/06/20 23 01/06/2023 NUSWA B VAGIN ITIS PLUS (VG+) bisi albicans, AVIVA Negati ve negati ve Not Available [facility] ([facility]) [address] [facility], [place], [address], 01/11/2023 10:36:49 01/06/20 23 01/06/2023 NUSWA B VAGIN ITIS PLUS (VG+) bisi glabrata, AVIVA Negati ve negati ve Not Available [facility] ([facility]) [address] [facility], [place], [address], 01/11/2023 10:36:49 01/06/20 23 01/06/2023 NUA B VAGIN ITIS PLUS (VG+) trich vag by AVIVA Negati ve negati ve Not Available [facility] ([facility]) [address] [facility], [place], [address], 01/11/2023 10:36:49 01/06/20 23 01/06/2023 NUSWA B VAGIN ITIS PLUS (VG+) chlamydia trachomatis, AVIVA Negati ve negati ve Not Available [facility] ([facility]) [address] [facility], [place], [address], 01/11/2023 10:36:49 01/06/20 23 01/06/2023 NUSWA B VAGIN ITIS PLUS (VG+) neisseria gonorrhoeae, AVIVA Negati ve negati ve Not Available [facility] ([facility]) [address] [place], [address], 01/11/2023 10:36:49 01/06/20 23 01/06/2023 TSH+F REE T4 TSH 0.400 uIU/m L 0.450- 4.500 below low normal Not Available [facility] ([facility]) [address] [place], [address], 01/11/2023 10:36:51 01/06/20 23 01/06/2023 TSH+F REE T4 T4,free(dire ct) 1.17 NG/dL 0.82-1 .77 Not Available [facility] ([facility]) [address] [place], [address], 01/11/2023 10:36:51 01/06/20 23 01/06/2023 TESTO STERO NE,FR EE AND TOTAL testosterone 46 NG/dL 13- Not Available [facility] ([facility]) [address] [facility], [place], [address], 01/11/2023 10:36:51 01/06/2001/11/2023 TESTO STERO NE,FR EE AND TOTAL free testosterone (direct) 1.0 pg/mL 0.0-4. 2 Not Available [facility] ([facility]) [address] [facility], [place], [address], 01/11/2023 10:36:51 01/06/20 23 01/06/2023 HIV AB/P2 4 AG WITH REFLE X HIV Ab/P24 Ag screen Non Reacti ve non reacti ve HIV Negat balbina HIV-1 /HIV- 2 antib odies and HIV-1 p24 antig en were NOT detec idris. There is no labor atory evide nce of HIV infec tion. Not Available [facility] ([facility]) [address] [facility], [place], [address], 01/11/2023 10:36:52 01/06/20 23 01/06/2023 RPR, RFX QN RPR/C ONFIR M TP RPR Non Reacti ve non reacti ve Not Available [facility] ([facility]) [address] [facility], [place], [address], 01/11/2023 10:36:53 01/06/20 23 01/06/2023 HCV ANTIB [...] e HCV infec tion. Not Available [facility] ([facility]) [address] [facility], [place], [address], 01/11/2023 10:36:54 01/06/20 23 01/06/2023 HEMOG LOBIN A1C hemoglobin A1C 4.7 % 4.8-5. 6 below low normal Predi abete s: 5.7 - 6.4 Diabe danilo: >6.4 Glyce morena contr ol for adult s with diabe danilo: <7.0 Not Available [facility] ([facility]) [address] [facility], [place], [address], 01/11/2023 10:36:55 01/06/2001/06/2023 HBSAG SCREE N HBsAg screen Negati ve negati ve Not Available [facility] ([facility]) [address] [facility], [place], [address], 01/11/2023 10:36:56 01/07/2001/06/2023 IGP, APTIM A HPV, RFX 16/18 ,45 HPV aptima Negati ve negati ve This nucle ic acid ampli ficat ion test detec ts fourt een high- risk HPV types (16,1 8,31, 33,35 ,39,4 5,51, 52,56 ,58,5 9,66, 68) witho ut diffe renti ation . Not Available [facility] ([facility]) [address] [facility], [place], [address], 01/07/2023 12:13:17 01/07/20 23 01/07/2023 IGP, APTIM A HPV, RFX 16/18 ,45 diagnosis: Commen t NEGAT BALBINA FOR INTRA EPITH ELIAL LESIO N OR MALIG LUIS . SPECI MEN REPRO CESSE D FOR INTER PRETA TION USING GLACI AL ACETI C ACID (GAA) . Not Available [facility] ([facility]) [address] [place], [address], 01/07/2023 12:13:17 01/07/20 23 01/07/2023 IGP, APTIM A HPV, RFX 16/18 ,45 specimen adequacy: Monae aldana Satis facto ry for evalu ation . Endoc ervic al and/o r squam ous metap lasti c cells (endo cervi kim compo nent) are prese nt. Areas of parti ally obscu ring blood are prese nt. Not Available [facility] ([facility]) [address] [place], [address], 01/07/2023 12:13:17 01/07/2001/07/2023 IGP, APTIM A HPV, RFX 16/18 ,45 clinician provided ICD10: Monae aldana Z11.3 N93.9 N93.0 Not Available [facility] ([facility]) [address] [place], [address], 01/07/2023 12:13:17 01/07/20 23 01/07/2023 IGP, APTIM A HPV, RFX 16/18 ,45 performed by: Monae jesus, Cytot stefany aldana (ASCP ) Not Available [facility] ([facility]) [address] [place], [address], 01/07/2023 12:13:17 01/07/2001/07/2023 IGP, APTIM A HPV, RFX 16/18 ,45 . . Not Available [facility] ([facility]) [address] [place], [address], 01/07/2023 12:13:17 01/07/20 23 01/07/2023 IGP, APTIM [...] ts do occur . Not Available [facility] ([facility]) [address] [facility], [place], [address], 01/07/2023 12:13:17 01/07/20 23 01/07/2023 IGP, APTIM A HPV, RFX 16/18 ,45 test methodology: Remaen t This liqui d based ThinP rep(R ) pap test was scree vahe with the use of an image guide anatoliy gill. Not Available [facility] ([facility]) [address] [facility], [place], [address], 01/07/2023 12:13:17 01/07/20 23 01/07/2023 IGP, APTIM A HPV, RFX 16/18 ,45 HPV genotype reflex Commen t Crite matthias not met, HPV Genot ype not perfo rmed. Not Available [facility] ([facility]) [address] [place], [address], 01/07/2023 12:13:17 01/10/20 23 01/09/2023 pregn arminda test, urine HCG negati ve Not Available [employer] [address] [facility] , [place], [address], 01/09/2023 16:30:54 10/17/19 22 10/16/2021 CT, abdom en + pelvi s, w/o contr ast No observ ation record ed. [email or web address] [facility] ([facility]) [address], [place], [place], [address], 10/18/2021 23:08:20 11/22/19 22 11/21/2021 XR, chest , 2 view No observ ation record ed. [address], [place], [address], 11/25/2021 11:38:59 11/22/19 22 11/21/2021 imagi ng/di agnos tic resul t No observ ation record ed. [address], [place], [address], 11/25/2021 11:38:47 Result Notes None recorded. Problems Name Problem SNOMED Code Status Onset Date Resolution Date Notes Provider Name and Address Organization Details Recorded Time Anemia of pregnanc y 62745499 Completed 09/25/2019 Removal Reason: resolved Zainab Ch MD [address], [place], [address] , [place] [facility] 0 17:43:51 Body mass index 30+ - obesity 651401217 Completed 201709/24/2021 Araseli Mills APRN [address], [place], [address] , [place] - [facility] 2 10:23:33 Polycyst ic ovaries Active 2017 Amelie Mayfield null, [place] - [facility] 2 13:09:23 Oligomen orrhea 68127620 Completed 201708/16/2021 Zainab Ch MD [address], [place], [address] , [place] [facility] 2 19:31:58 Abnormal uterine bleeding 56797955894 100 Completed 201708/16/2021 Zainab Ch MD [address], [place], [address] , [place] [facility] 2 19:31:46 Hidraden itis 24863116 Active 2017 Amelie Mayfield null, [place] [facility] 2 13:09:13 Pelvic floor dysfunct ion 202169631 Active 2018 Amelie Mayfield [place] [facility] 2 13:09:18 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 a 752997474 Active 2019 Amelie [place] [facility] 2 13:08:57 History of SARS-CoV -2 75077111199 3498585 Completed 202010/01/2020 Bibi Gordon null, [place] [facility] 1 11:37:52 Essentia l hyperten morelia 86028677 Active 2020 Amelie Mayfield [place] [facility] 2 13:09:07 Migraine 63042174 Active 2020 Amelie Mayfield [place] [facility] 13:09:17 Gastroes ophageal reflux disease 099567471 Active 2020 Amelie Mayfield [place] [facility] 13:09:11 Chronic constipa tion 806874761 Active 2020 Amelie Mayfield [place] [facility] 13:09:01 Dysuria 95554671 Active 2021 Amelie Mayfield [place] [facility] 13:09:03 Body mass index 40+ - severely obese 847903605 Active 2021 Amelie Mayfield [place] [facility] 2 13:08:55 Morbid obesity 989117712 Active 2022 Ag Crouch RN [address], [place], [address] , [place] [facility] 14:17:15 Problem Notes None recorded. Procedures Surgical History Date Name Laterality Status Provider Name and Address Organization Details Recorded Time 03/08/20 Colposcopy cancelled Amelie Mayfield [place] - [facility] 01/27/20 09:08:30 01/06/20 Date of Last Pap Smear completed Zainab Ch MD [address], [place], [address], [place] [facility] 10/30/2023 19:57:44 01/27/20 Colposcopy completed Zainab Ch MD [address], [place], [address], [place] [facility] 2021 20:07:34 01/27/20 21 Colposcopy completed Araseli Mills APRN [address], [place], [address], [place] [facility] 09/24/2021 09:21:24 01/27/20 21 Colposcopy completed Fatuma Tsai [place] - [facility] 01/11/2022 10:21:09 07/18/19 21 Date of Last Colonoscopy completed Monica Vásquez [place] - [facility] 08/12/2021 14:09:13 09/11/19 20 LEEP Procedure completed Zainab Ch MD [address], [place], [address], [place] [facility] 09/11/2019 16:00:11 09/11/19 20 [...] Name and Address Organization Details Recorded Time 128449 Reglan medicatio n other moderate Not available [...] Updated DateTime 07/20/2022 167.64 cm 40.8 kg/m2 990724.87 g 116/72 mm[Hg] Monica Vásquez [place] - [facility] 07/20/2022 16:34:38 Date Recorded Body height Body mass index (BMI) Body weight Systolic And Diastolic Provider Name and Address Organization Details Last Updated DateTime 09/24/2021 167.64 cm 40.2 kg/m2 835702.5 g 116/78 mm[Hg] Erin Gibbons [facility] [place] 09/24/2021 09:12:59 Date Recorded Body height Body mass index (BMI) Body weight Systolic And Diastolic Provider Name and Address Organization Details Last Updated DateTime 01/05/2023 167.64 cm 40 kg/m2 337770.91 g 118/82 mm[Hg] Ameliemau Mayfield [facility] [place] 01/05/2023 14:16:13 Date Recorded Body height Body mass index (BMI) Body weight Systolic And Diastolic Provider Name and Address Organization Details Last Updated DateTime 01/12/2022 167.64 cm 40.2 kg/m2 383141.5 g 104/62 mm[Hg] Erin Gibbons [facility] [place] 01/12/2022 14:34:42 Date Recorded Body height Body mass index (BMI) Body weight Systolic And Diastolic Provider Name and Address Organization Details Last Updated DateTime 02/09/2022 167.64 cm 39.1 kg/m2 013087.35 g 126/78 mm[Hg] Amelie Mayfield [facility] [place] 02/09/2022 13:07:43 Social History Question Answer Notes LastModified by Organizat ion Details LastModified Time Tobacco Smoking Status Former Smoker Monica Vásquez [place], [place] - [facility] 07/20/2022 16:27:52 Able To Swim? [...] COVID-19 While That Case Was Ill? No [email or web address] Information not available 02/09/2022 In The 14 Days Before Symptom Onset, Have You Had Close Contact With A Person Who Is Under Investigation For COVID-19 While That Person Was Ill? No [email or web address] Information not available 02/09/2022 Have You Been [...] Or The Highest Degree You Have Received? [id number] Information not available 01/30/2018 How Many Days [...] ? No, I Don't Want To Become [email or web address] Information not available 02/09/2022 What Is Your [...] not available 01/30/2018 What is your occupation? [employer] Information not available 07/20/2022 Mental Status Question Answer Note LastModified by Organizat ion Details LastModified Time Do you feel stressed (tense, restless, nervous, or anxious, or unable to sleep at night)? [id number] Information not available 08/12/2021 Do you have [...] Not available 2018 15:18:11 Mother Uterine leiomyoma [email or web address] Not available 2021 09:10:51 Medical History Condition Response Pancreatitis N Coronary Artery Disease N Other N Gout N Atrial Fibrillation N congenital heart disease N Blood Diseases N Kidney Stones N Hyperthyroidism N Blood Transfusion N Rheumatoid arthritis N Erectile Dysfunction N amputation N Colonoscopy N Skin Lesions N COPD N Depression N Pneumonia N Incontinence N Murmur N Edema N Alzheimer's Disease N Migraine Headaches N Tobacco Abuse N Anxiety Disorder N Hemorrhoids N Muscle, Joint, or Bone Problems N Obesity N Vision or Eye Problems N Arthritis N Restless Leg Syndrome N Polyps N Infertility N Mental Disorder N Carpal Tunnel N Acid Reflux (GERD) N Cancer N Varicosities N Stroke N Tendonitis N Crohn's Disease N Hypercholesterolemia N Skin Cancer N Headaches N Fibromyalgia N Anal Fissure N Irritable Bowel Syndrome [...] colitis N Cerebrovascular Disease N Depression N Guillain-[place] N Sleep Apnea N Aneurysm N Bronchitis [...] SNOMED-CT Code Diagnosis ICD10 Code Diagnosis Note [id number] Naheed Hidalgo APRN [address] [place] [address] 09/22/2017 12:33:02 09/22/2017 12:51:30 Eustachian tube disorder 05947434 H69.90 [id number] Naheed Hidalgo APRN [address] [place] [id number] 01/03/2018 08:05:15 01/03/2018 08:45:21 Hypothyroidism 54568117 E03.9 Anemia 614462079 D64.9 Vitamin D deficiency 347 60812 E55.9 [id number] MD John Blount [employer] [address] [place] [address] [place] [id number] 01/30/2018 15:07:25 01/30/2018 15:58:53 Pain in pelvis 11807987 R10.2 Venereal d isease screening 967328032 Z11.3 Oligomenorrhea 04297548 N91.5 Polycystic ovaries 80104 008 E28.2 Hidradenit is suppurativa 26041092 L73.2 [id number] MD John Blount [employer] [address] [place] [address] [place] [id number] 02/20/2018 13:18:56 02/20/2018 14:22:33 Oligomenorrhea 64976805 N91.5 Polycystic ovaries 27936 008 E28.2 Pain in pelvis 39339282 R10.2 [id number] MD John Blount [employer] [address] [place] [address] [place] [id number] 05/02/2018 09:02:13 05/02/2018 09:25:51 Abnormal uterine bleeding 8594967002 9100 N93.9 Oligomenorrhea 80660927 N91.5 Polycystic ovaries 94064 008 E28.2 Hidradenit is suppurativa 49844491 L73.2 [id number] Naheed Hidalgo APRN [address] [place] [address] 06/06/2018 09:51:55 06/06/2018 11:19:11 Acute bronchitis 88924781 J20.9 Cough 54362146 R05 Fatigue 12207820 R53.83 [id number] Sue Anglin APRN [address] [place] [id number] 06/28/2018 12:48:18 06/28/2018 17:16:50 Acne 69324223 L70.9 We discussed support measures.P atient provided with printed informatio n on preventati ve and support measures for acne.We discussed starting Spironolac tone and will re-evaluat e in the future. Hidradenit is suppurativa 54370530 L73.2 Patient pleased with the current control with her H.S. She believes that the surgical wash is helping a great deal and will continue use. [id number] MD John Blount [employer] [address] [place] [address] [place] [id number] 09/11/2018 13:52:08 09/11/2018 14:32:49 Abnormal uterine bleeding 6636384730 9100 N93.9 Hidradenitis 61946594 L7 3.2 Polycystic ovaries 53357 008 E28.2 Venereal d isease screening 111460583 Z11.3 [id number] MD John Blount [employer] [address] [place] [address] [place] [id number] 11/02/2018 13:12:35 11/02/2018 13:46:27 Vaginal discharge 274322170 N89.8 Candidiasis of vagina 72 483091 B37.3 [id number] Naheed Hidalgo [employer] [address] [place] [address] 11/08/2018 14:48:45 11/08/2018 15:34:32 Fatigue 07492315 R53.83 Memory impairment 735653 006 R41.3 Dizziness and giddiness 249917562 R42 [id number] Naheed Hidalgo APRN [address] [place] [address] 11/21/2018 09:59:56 11/21/2018 15:29:14 Vitamin B12 deficiency (non anemic) 34942272 E53.8 Vitamin D deficiency 347 64487 E55.9 [id number] Naheed Hidalgo [employer]CH[employer] [address] [place] [address] 01/10/2019 16:00:28 01/10/2019 16:27:14 Acne 51964912 L70.9 Memory impairment 090164 006 R41.3 Chronic constipation 236 143575 K59.09 Food intolerance 8676793 0 K90.49 Impairment of balance 38 8068289 R26.89 Paresthesi a of lower extremity 857128674 R20.2 [id number] MD John Blount [employer] [address] [place] [address] [place] [address] 03/14/2019 14:57:40 03/14/2019 15:48:16 Routine gynecologic examination done 8743056625 9101 Z01.419 Depression screening 171 722355 Z13.89 PHQ 9 negative Diet education 40893973 Z71.3 Counseling 464262705 Z71 .82 Exercise counseljohn nice Patient encouraged to exercise 30 minutes 5 days a week. Examinatio n of blood pressure 333674567 Z01.30 Normotensi ve Screening for malignant neoplasm of cervix 614078108 Z12.4 Pap collected Vaginal discharge 055941 006 N89.8 Pelvic ward or dysfunction 343114558 M62.9 Polycystic ovaries 07096 008 E28.2 Family his tory of breast cancer 367256744 Z80.3 [id number] MD John Blount [employer] [address] [place] [address] [place] [id number] 08/21/2019 10:53:04 08/21/2019 11:54:03 Cervical intraepithelial neoplasia grade III with severe dysplasia 152869417 D06.9 [id number] MD John Blount [employer] [address] [place] [address] [place] [address] 09/11/2019 14:52:56 09/11/2019 15:49:37 Cervical intraepithelial neoplasia grade III with severe dysplasia 086143251 D06.9 [id number] MD John Blount [employer] [address] [place] [address] [place] [id number] 09/25/2019 13:05:49 09/25/2019 13:21:20 History of loop electrosurgical excision procedure 2790722680 9102 Z98.890 Cervical intraepithelial neoplasia grade III with severe dysplasia 074133132 D06.9 [id number] MD John Blount [employer] [address] [place] [address] [place] [id number] 11/08/2019 15:58:57 11/08/2019 16:26:39 Mass of left breast 6139054228 2981581 N63.20 [id number] MD John Blount [employer] [address] [place] [address] [place] [id number] 02/20/2020 15:34:15 02/20/2020 16:34:29 Cervical intraepithelial neoplasia grade III with severe dysplasia 949704990 D06.9 Acne 10200474 L70.9 [id number] MD John Blount [employer] [address] [place] [address] [place] [id number] 06/18/2020 10:30:20 06/18/2020 11:34:32 Polycystic ovary syndrome 981969739 E28.2 Trying to conceive 48124 9001 Z31.9 History of loop electrosurgical excision procedure 6478613476 9102 Z98.888 [id number] MD Mere [place] [employer] [employer] [address] [place] [address] [place] [address] 09/29/2020 15:14:02 09/29/2020 16:25:12 Screening for malignant neoplasm of cervix 354738482 Z12.4 Pap collected Cervical intraepithelial neoplasia grade III with severe dysplasia 821864314 D06.9 Dyspareunia 73362302 N94 .10 Mass of left breast 1224 425001 3629102 N63.20 Family his tory of breast cancer 104025242 Z80.3 [id number] Miranda Pa APRN [address] [place] [id number] 10/01/2020 11:19:30 10/01/2020 12:03:02 Essential hypertension 31148748 I10 Advised to check BP daily at home. Follow-up in 1 month. Fatigue 25738538 R53.83 Migraine 82452033 G43.90 9 [id number] Miranda Pa APRN [address] [place] [id number] 10/17/2020 08:06:55 10/17/2020 08:38:56 Essential hypertension 72200942 I10 Advised to check BP daily at home. Follow-up in 1 month. Migraine 45979190 G43.90 9 She has not used the sumatripta n yet, only Tylenol PRN. Body mass index 30+ - obesity 243214519 Z68.38 Hidradenit is suppurativa 64468941 L73.2 [id number] Miranda aP APRN [address] [place] [address] 11/04/2020 08:18:10 11/04/2020 09:01:54 Migraine 31880542 G43.909 Dizziness 704113759 R42 Labs previously done at last visit were normal. Blurring o f visual image 754448279 H53.8 Neck pain 23933768 M54.2 [id number] Miranda Pa APRN [address] [place] [address] 12/05/2020 08:15:03 12/05/2020 09:06:31 Edema of lower extremity 384999718 R60.0 Resolved - advised on elevation of legs, adequate hydration, reduced sodium intakes, compressio n stockings PRN. F/U if worsens. Low back pain 967851571 M54.5 Thoracic back pain 81730 8004 M54.6 Migraine 95189769 G43.90 9 Advised to F/U with Neuro as scheduled. F/U in office needed before then. [id number] Miranda Pa APRN [address] [place] [address] 12/09/2020 13:55:58 12/09/2020 14:38:24 Body mass index 30+ - obesity 516402779 Z68.39 Chest pain 24926051 R07. 9 Labs performed previously . Will refer to Cardiology today. F/U in office if symptoms worsen, or go to ER for any chest pain lasting longer than 5 minutes or increased shortness of breath. Already had recent labs October 2020 - no need for additional labs today. Palpitations 54908602 R0 0.2 [id number] MD John Blount [employer] [address] [place] [address] [place] [id number] 01/26/2021 13:12:53 01/26/2021 14:39:11 Abnormal cervical Papanicolaou smear 190514582 R87.619 Screening for malignant neoplasm of cervix 786803877 Z12.4 [id number] MD Mere [place] [employer] [employer] [address] [place] [address] [place] [id number] 04/15/2021 08:58:03 04/15/2021 09:18:57 Abnormal cervical Papanicolaou smear 369649634 R87.619 Vaginal discharge 288881 006 N89.8 Dyspareunia 95648409 N94 .10 [id number] Corry Sears APRN [address] [place] [id number] 06/18/2021 09:38:21 06/18/2021 10:27:06 Abdominal pain 52933096 R10.9 Depression screening 171 764831 Z13.31 Gastroesop hageal reflux disease 829740417 K21.9 Chronic constipation 236 303093 K59.09 Abdominal bloating 93063 9008 R14.0 Nausea 332684304 R11.0 Body mass index 40+ - severely obese 516933043 Z68.41 [id number] MD John Blount [employer] [address] [place] [address] [place] [id number] 08/12/2021 13:57:13 08/12/2021 14:45:12 Routine gynecologic examination done 7229173450 9101 Z01.419 Depression screening 171 213070 Z13.89 PHQ 9 negative Diet education 06934585 Z71.3 Counseling 761612334 Z71 .82 Exercise counsellin g. Patient encouraged to exercise 30 minutes 5 days a week. Examinatio n of blood pressure 964727422 Z01.30 Normotensi ve Vaccine de clined by patient 7274158832 02 Z28.21 Obesity 597730830 E66.9 Screening for malignant neoplasm of cervix 813779771 Z12.4 Hidradenit is suppurativa 50721649 L73.2 [id number] Luis Mitchell MD [address] [place] [address] 09/10/2021 14:58:29 09/10/2021 15:35:57 Pharyngitis [id number] J02.9 [id number] Araseli Mills APRN [facility] [address] [place] [address] SARAN Sanchez [id number] 09/24/2021 08:40:43 09/24/2021 09:34:52 Dysuria 54345656 R30.9 Chronic constipation 236 927937 K59.09 Body mass index 40+ - severely obese 410483666 Z68.41 [id number] Alis Masy DO [facility] [address] [place] [address] SARAN Sanchez [id number] 01/12/2022 14:23:40 01/12/2022 15:14:15 Irregular periods 34641018 N92.6 Sterilizat ion requested 352780707 Z30.2 Abnormal c ervical Papanicolaou smear 241677330 R87.619 Chronic in terstitial cystitis 074266426 N30.10 [id number] Zainab Ch MD [facility] [address] [place] [address] SARAN Sanchez [id number] 02/09/2022 13:00:30 02/09/2022 13:30:25 Pre-surgery evaluation [id number] Z01.818 Sterilizat ion requested 356113733 Z30.2 Contracept ion care management 167588115 Z30.9 Condyloma acuminata of vulva 902922326 A63.0 [id number] Zainab Ch MD [facility] [address] [place] [address] SARAN Sanchez [id number] 07/20/2022 16:00:19 07/20/2022 17:05:27 Routine gynecologic examination done [id number] 9101 Z01.419 Depression screening 171 434479 Z13.89 PHQ 9 negative Examinatio n of blood pressure 715302306 Z01.30 Normotensi ve Body mass index 40+ - severely obese 917105114 Z68.41 Screening for malignant neoplasm of cervix 989343590 Z12.4 Vaginal pain 03698240 R1 0.2 Dyspareunia 74770018 N94 .10 Sebaceous cyst of skin 340888536 L72.3 [id number] MD John Blount [facility] [address] [facility] SARAN Sanchez [id number] 01/05/2023 13:55:12 01/05/2023 14:44:41 Venereal disease screening 044169383 Z11.3 Postcoital bleeding 4888 0000 N93.0 Abnormal u terine bleeding 7812783440 9100 N93.9 Health Concerns Section Related Observation LastModified by Organization Detai ls LastModified Time None Recorded Concern Status LastModified by Organization Details LastModified Time None Recorded Advance Directives Directive N: Payers Insurance Date Sequence Insurance Name Policy Number Policy Mai Covered Member ID Mai Member ID Guarantor Name 04/23/2023 [id number] Araceli M [place] [id number] Katy Gill [place] 01/12/2022 1 [employer] [facility] (MEDICAID HMO) Araceli [place] [id number] Katy Gill [place] 04/23/2023 1 [employer] [facility] (MEDICAID HMO) Araceli Gill [place] [id number] Fabyollie Gill [place] 08/21/2019 1 *SELF PAY* Faby Gill [place] 02/10/2022 1 [id number] Katy Gill [place] [id number] Katy Gill [place] Notes Date Note Type [...] frequency, lots of pressure, cramping. Araseli Gene, IT DATA ARCHITECT [address], [place], [address], [place] - [facility] 09/24/2021 10:25:12 01/12/2022 text/html [...] surgery. 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 She reports that she is in [...] Ch MD [address], [place], [address], [place] - [facility] 07/29/2022 13:27:41 01/05/2023 text/html [...] Ch MD [address], [place], [address], [place] - [facility] 01/09/2023 16:33:00 OBGyn Episode Ob Episode Information Episode Created Date Number of Fetuses Patient Bloodtype Patient rh Status Prepregnancy Weight lbs Domestic Partner Domestic Partner Phone Father Name Alpine Patroller Status 01/31/20 18 1 CLOSED Fetus Data [...] Comments 5 Regional-Ep idural 40 false 17 [facility] Discharge Information Feeding Method Contraceptive Method Maternal HG B and HCT Levels
--- OUTSIDE RECORDS SUMMARY | 2025-01-29 09:14 | XMS_ITS | Encounter Summary ---
Author Organization Healthcare Address [address] [place] [address] Care Team Providers Care Anvil Seating Press Operator Name Role Phone Miranda Pa APRN Primary Care Provider + Encounter Details Date Type Department Care Team (Late st Contact Info) Description 01/22/2021 [facility] [address] [place] [address] Miranda Pa APRN [address] [place] [address] Migraine without status migrainosus, not intractable, unspecified [...] Primary documented in this encounter Care Teams Anvil Seating Press Operator Relationship Specialty Start Date End Date Miranda Pa APRN [address] [facility] [place] [address] PCP - General 11/28/20 documented as of this encounter
--- NOTE | 2025-01-29 09:17 | HMH.EDGENADL ---
Discharge Plan Disposition Patient Disposition: Home, Self-Care Condition: Good Prescriptions Prescriptions: No Action terconazole 0.8 % cream 1 appful vaginal HS 3 Days Qty: 20 0RF PNV no.95-ferrous fumarate-FA [] 28 mg iron- 800 mcg tablet 1 tab PO DAILY Qty: 90 1RF metronidazole [Vandazole] 0.75 % (37.5mg/5 gram) gel 1 appful vaginal DAILY 5 Days Qty: 70 0RF Referrals Follow up/Referrals: Provider,Referral, [Primary Care Provider, Medical] - See instructions Activity Restrictions/Add. Instructions Additional Instructions/Restrictions: Your workup was negative here in the emergency department. You can use Tylenol for pain in your left lower extremity. Follow-up with your OB and primary care provider. Return to the emergency department for any acute or worsening symptoms. Clinical Impressions Clinical Impression: Acute leg pain, Shortness of breath Print Language Print Language: Indonesian Discharge ED Provider: Amie Kelley Adult HPI General Chief complaint: Shortness of Breath/Dyspnea Stated complaint: DVT left leg sent by Dr rodriguez Time Seen by Provider: 01/29/25 09:11 Mode of Arrival: Ambulatory Source of Information: Patient Description of Symptoms (Recalled from ER Triage Doc. by RN): pt presents to ED with c/o left leg swelling and pain that began yesterday. pt reports that pain has increased since then. pt is 21 weeks . , no complications with . pt reports shortness of air and chest tightness that began this am. History of Present Illness HPI narrative: Patient is a 30-year-old female who is currently 21 weeks who presented to the emergency department with left lower extremity pain and shortness of breath. Patient states that she is having pain posterior to her left knee and feels that her leg is more swollen than her right. Patient states that she has been having increased shortness of breath as well. Patient denies any chest pain. Patient denies any cough, or other recent respiratory symptoms. Patient denies any abdominal pain nausea vomiting or diarrhea. Patient denies any headache or vision changes. Patient states that she was seen by her primary care provider today which was her OB and they were concerned for possible blood clot in her left lower extremity and she was sent here to the emergency department. Patient denies history of blood clots. Patient has no clotting history. Patient has not had any recent surgery in the last 6 weeks. Patient denies any hemoptysis. Patient is not on any hormone medications. Related Data Previous Rx's ?Medication ?Instructions ?Recorded terconazole 0.8 % vaginal cream 1 appful vaginal HS 3 days #20 12/19/24 grams vit no.95-ferrous 1 tab PO DAILY #90 tabs 01/11/25 fumarate 28 mg-folic acid 800 mcg tablet () metronidazole 0.75 % (37.5 mg/5 1 appful vaginal DAILY 5 days #70 01/14/25 gram) vaginal gel (Vandazole) grams Allergies Allergy/AdvReac Type Severity Reaction Status Date / Time metoclopramide (From Reglan) Allergy Mild Hives Verified 01/23/25 15:49 famotidine (From Pepcid) Allergy Verified 01/23/25 15:49 prochlorperazine (From Allergy Verified 01/23/25 15:49 Compazine) levothyroxine AdvReac Intermediate hot flashes Verified 01/23/25 15:49 PFS PFS Disclaimer: The information contained in this section may have been updated after the patient was seen, as this information can be updated by other users. Medical History Vaginal discomfort GBS bacteriuria positive urine culture in early . She will need abx in labor regardless of RV swab Vaginal bleeding affecting early Palpitations SOB (shortness of breath) Chest pain Dizziness Tachycardia Maternal obesity affecting , antepartum Influenza A Vaginal discharge Irregular periods/menstrual cycles Bloating Sinusitis Pleurisy Recurrent candidiasis of vagina Viral URI with cough Bronchitis Obesity (BMI 35.0-39.9 without comorbidity) Patient desires PAC (premature atrial contraction) PVC (premature ventricular contraction) Irritable bowel syndrome (IBS) Hemorrhoid Allergies Depression Anxiety Urinary tract infection Kidney stone History of gastroesophageal reflux (GERD) Migraine Surgical History History of cholecystectomy H/O umbilical hernia repair Hemlock teeth removed H/O adenoidectomy History of tonsillectomy Family History Other Family history of hypothyroidism Family history of myocardial infarction Social History Smoking Status: Current every day smoker tobacco type: e-cigarettes second hand exposure: Yes alcohol intake: current alcohol intake frequency: holidays/special occasions only substance use type: denies use current occupational status: employed Travel in the last 8 weeks?: None household members: family and children housing: house lives independently: Yes marital status: education level: college service: No halfway: No current occupational exposures/hazards: No caffeine: Yes special ronaldo needs: No agree to transfusion: No do you feel safe at home: Yes victim of physical abuse: No victim of emotional abuse: No victim of sexual abuse: No would you like helpful sources: No Have you lived/traveled outside US in past 30 days?: No Contact w/someone who lives/traveled outside US past 30 days?: No Exposure to someone with infectious disease in past 14 days?: No Do you have a fever (greater than 100.4 F or 38 C)?: No Have you tested positive for COVID-19?: No Exposed to someone with COVID-19 in past 14 days?: No Do you have a sore throat?: No Do you have a cough?: No Do you have any weakness?: No Do you have any diarrhea?: No Are you experiencing any unusual bleeding?: No Do you have any muscle aches/pain?: No Do you have any abdominal pain?: No Are you experiencing loss of taste or smell?: No Other Medical History Have you received the Flu Vaccine for this season: Yes Have you received the Pneumonia Vaccine: Yes ROS Obtained: Yes All systems reviewed & no additional complaints except as documented and Yes Systems reviewed as appropriate & no additional complaints except as documented Physical Exam General General appearance: alert and in no apparent distress Head Head exam: atraumatic, normocephalic and normal inspection Eye Eye exam: Present normal appearance, PERRL and EOMI; Absent scleral icterus ENT ENT exam: Present normal exam and normal external ear exam Neck Neck exam: Present normal inspection and full ROM Chest Chest inspection: Present normal inspection and symmetric chest wall rise Respiratory Respiratory exam: Present normal lung sounds bilaterally; Absent respiratory distress or wheezes Cardiovascular Cardiovascular exam: Present regular rate, normal rhythm and normal heart sounds Abdominal Exam Abdominal exam: Present soft and distention; Absent tenderness, guarding or rebound Extremities Exam Extremities exam: Present normal inspection, full ROM and other (Left lower extremity with no significant swelling in comparison to the right, tenderness posterior to the left knee and medially) Back Exam Back exam: Present normal inspection and full ROM Neurological Exam Neurological exam: Present alert and oriented X3 Psychiatric Psychiatric exam: Present normal affect and normal mood Skin Skin exam: Present warm and dry Medical Decision Making Medical Records Medical records reviewed: Yes I reviewed the patient's medical records. Screening: Per USPSTF and CDC recommendations, given the prevalence of disease in our region, it is our hospital?s policy to screen for HIV and viral Hepatitis for all patients aged 18 and over and those with ongoing risk factors. Alli Inquiry Pt receiving controlled substance: No Vital Signs: 01/29/25 09:10 01/29/25 09:30 01/29/25 09:40 Temperature 98.5 F Temperature Source Oral Pulse Rate 77 Pulse Rate [Left Radial] 77 Respiratory Rate 22 25 H Blood Pressure Blood Pressure [Right Arm] 129/71 Blood Pressure Mean [Right Arm] 90 Blood Pressure Source Blood Pressure Source [Right Arm] Automatic Cuff Blood Pressure Position Blood Pressure Position [Right Arm] Supine 02 Sat by Pulse Oximetry 95 98 Oxygen Delivery Method Room Air 01/29/25 10:00 01/29/25 10:30 01/29/25 11:00 Temperature Temperature Source Pulse Rate 73 79 75 Pulse Rate [Left Radial] Respiratory Rate 25 H 23 23 Blood Pressure Blood Pressure [Right Arm] Blood Pressure Mean [Right Arm] Blood Pressure Source Blood Pressure Source [Right Arm] Blood Pressure Position Blood Pressure Position [Right Arm] 02 Sat by Pulse Oximetry 100 98 99 Oxygen Delivery Method 01/29/25 11:37 01/29/25 12:16 Temperature 98 F Temperature Source Oral Pulse Rate 75 73 Pulse Rate [Left Radial] Respiratory Rate 20 15 Blood Pressure 90/47 L 105/55 L Blood Pressure [Right Arm] Blood Pressure Mean [Right Arm] Blood Pressure Source Automatic Cuff Blood Pressure Source [Right Arm] Blood Pressure Position Sitting Blood Pressure Position [Right Arm] 02 Sat by Pulse Oximetry 99 Oxygen Delivery Method Room Air Lab Data Lab results reviewed: Yes I reviewed the patient's lab results. Lab Results 01/29/25 09:20: WBC 8.1, RBC 3.79 L, Hgb 11.6 L, Hct 33.8 L, MCV 89.2, MCH 30.6, MCHC 34.3, RDW 13.2, Plt Count 223, MPV 11.1 H, Neut % (Auto) 80.1 H, Lymph % (Auto) 14.3, [place] % (Auto) 4.7, Eos % (Auto) 0.2, Baso % (Auto) 0.1, Neut # (Auto) 6.5, Lymph # (Auto) 1.2, [place] # (Auto) 0.4, Eos # (Auto) 0.0, Baso # (Auto) 0.0, D-Dimer 0.95 H, Sodium 136, Potassium 3.7, Chloride 103, Carbon Dioxide 22, Anion Gap 14.7, BUN 10, Creatinine 0.50 L, Estimated Creat Clear 154, Estimated GFR 145, Est GFR ( Amer) 175, Glucose 91, Calcium 9.8, Magnesium 1.7, Total Bilirubin 0.4, AST 27, ALT 30, Alkaline Phosphatase 55, Total Protein 7.1, Albumin 3.8, Globulin 3.3 H, Albumin/Globulin Ratio 1.2 01/29/25 09:20 01/29/25 09:20 Orders (Tests/Meds): ED MEDICATIONS Discontinued Medications Generic Name Dose Route Start Last Admin Trade Name Freq PRN Reason Stop Dose Admin Iopamidol 70 ml 01/29/25 11:41 01/29/25 11:42 Iopamidol-370 (76%);100ml Bottle IV 01/29/25 11:42 70 ml ONCE ONE Administration Sodium Chloride 50 ml 01/29/25 11:41 01/29/25 11:42 0.9 % Sodium Chloride 50 Ml Vial IV 01/29/25 11:42 50 ml ONCE ONE Administration Sodium Chloride 10 ml 01/29/25 11:41 01/29/25 11:42 Sodium Chloride 0.9% 10ml Syr (Rad Only) IV 01/29/25 11:42 10 ml ONCE ONE Administration ORDERS Category Date Time Status CT angio chest PE protocol Stat Cat Scan 01/29/25 10:49 Completed CXR 2 view (NOT portable) [XR chest 2V] Stat Exams 01/29/25 09:29 Completed CBC w/Auto Diff [Complete Blood Count Auto Diff] Stat Lab 01/29/25 09:20 Completed CMP [Comprehensive Metabolic Panel] Stat Lab 01/29/25 09:20 Completed D-Dimer Stat Lab 01/29/25 09:20 Completed MAG [Magnesium] Stat Lab 01/29/25 09:20 Completed CA venous doppler LE LT Stat Y 01/29/25 09:29 Completed ECG Data Tracing #1: I reviewed this ECG and interpreted as documented below: EKG with normal sinus rhythm, no acute ST or T wave changes concerning for ischemia. Medical Decision Narrative: Patient is a 38-year-old female with no significant past medical history who presented to the emergency department with left lower extremity pain and swelling as well as shortness of breath. On arrival, patient was hemodynamically stable, not tachycardic, not hypoxic patient was otherwise normotensive. Differential includes but not limited to: Musculoskeletal pain, DVT, shortness of breath in , pulmonary embolism, pneumonia, amongst others. Patient's workup was reviewed and interpreted by myself: CBC showed no leukocytosis, hemoglobin was stable, CMP was unremarkable, D-dimer was elevated. Chest x-ray was reviewed and interpreted by myself and showed no acute focal consolidation, pneumothorax, pleural effusion or other acute cardiac process. Ultrasound of the left lower extremity was obtained which showed no acute DVT on my interpretation and per radiology. Given patient's elevated D-dimer, I discussed risks and benefits of obtaining a CT scan to rule out pulmonary embolism with the patient and given the patient is 21 weeks I feel that benefits of obtaining the CT scan outweigh the risks. Patient felt comfortable with this plan and after shared decision making we decided to proceed with the CT scan. Patient CT scan was reviewed and interpreted by myself and showed no evidence of pulmonary embolism. At this time I felt the patient was appropriate discharge home. Return precautions were discussed and patient was discharged home in stable condition. Patient was advised to follow-up with her OB as scheduled as well as her primary care provider and to return for acute or worsening symptoms. Critical Care Critical Care Time Critical Care Time: No
--- NOTE | 2025-01-29 09:29 | XR_ITS ---
FINAL REPORT CLINICAL HISTORY: shortness of breath, worry of blood clot COMPARISON: 10/03/2023 FINDINGS: PA and lateral views of the chest were obtained. Seen on the lateral view only is an abnormal opacity overlying the lower thoracic ribs most indicative of subtle lower lobe pneumonia. This is not well lateralized. No effusions. The mediastinum has a normal appearance. The cardiac silhouette is unremarkable. IMPRESSION: Opacity in the lower lobe on lateral view only, pneumonia not excluded. Reviewed, Interpreted and Dictated by Vince Palencia MD Transcribed by Ava Newman Authenticated and [facility]
--- NOTE | 2025-01-29 09:29 | CA_ITS ---
FINAL REPORT TECHNIQUE: Ultrasound images of the deep venous system were obtained from the left groin to the calf veins. CLINICAL HISTORY: Left leg edema and pain x 24 hours. Patient is currently 21 weeks . Denies trauma but does state she was in new position at work yesterday where it required her to sit more than usual. FINDINGS: The deep venous system is normally compressible. Normal flow is identified. IMPRESSION: No evidence of left lower extremity DVT. Reviewed, Interpreted and Dictated by Vince Palencia MD Transcribed by Jennifer Liz Authenticated and [facility]
[2025-01-29 09:42] LABS: Hematocrit 33.8 % (37.0-47.0); Hemoglobin 11.6 g/dL (12.2-16.2); Immature Granulocytes % 0.6 %; Mean Corpuscular HGB Conc 34.3 g/dL (31.8-35.4); Mean Corpuscular Hemoglobin 30.6 pg (27.0-31.2); Mean Corpuscular Volume 89.2 fl (81-99); Nucleated Red Blood Cells % 0 %; Platelet Count 223 K/mm3 (142-424); Red Blood Count 3.79 M/mm3 (4.20-5.40); Red Cell Distribution Width-SD 43.1 fL; White Blood Count 8.1 K/mm3 (4.8-10.8)
[2025-01-29 09:46] LABS: Alanine Aminotransferase 30 U/L (12-78); Albumin Level 3.8 g/dl (3.5-5.0); Albumin/Globulin Ratio 1.2 (1.1-1.8); Alkaline Phosphatase 55 U/L (38-126); Anion Gap 14.7 mEq/L (5-15); Aspartate Amino Transferase 27 U/L (14-36); Bilirubin,Total 0.4 mg/dl (0.2-1.3); Blood Urea Nitrogen 10 mg/dl (7-17); Calcium 9.8 mg/dl (8.4-10.2); Carbon Dioxide 22 mmol/L (22.0-30.0); Chloride 103 mmol/L (98-107); Creatinine Clearance Estimated 154 mL/min (50-200); Creatinine,Serum 0.50 mg/dl (0.52-1.04); Estimated Glomerular Filt Rate 145 ml/min (>60); GFR (African American) 175 ML/MIN (>60); Globulin 3.3 g/dL (1.3-3.2); Glucose 91 mg/dl (74-100); Magnesium 1.7 mg/dl (1.6-2.3); Potassium 3.7 mmoL/L (3.5-5.1); Sodium 136 mmol/L (136-145); Total Protein,Serum 7.1 g/dl (6.3-8.2)
[2025-01-29 09:51] LABS: D-Dimer 0.95 ug/mL (0.0-0.5)
--- NOTE | 2025-01-29 10:49 | CT_ITS ---
FINAL REPORT TECHNIQUE: Postcontrast axial images of the chest were performed in a CTA protocol. This study was performed with techniques to keep radiation doses as low as reasonably achievable, (ALARA). Individualized dose reduction technique using automated exposure control or adjustment of mA and/or kV according to the patient's size were employed. CLINICAL HISTORY: SOB, , 21 weeks, + d-dimer FINDINGS: The heart is normal in size. No adenopathy is identified. No pleural or pericardial effusion is identified. The thoracic aorta is normal in caliber with no focal aneurysm or dissection identified. There is no filling defect to suggest pulmonary embolism. No lung infiltrate or mass is identified. The images of the upper abdomen are unremarkable. IMPRESSION: No evidence for PE on this exam. Reviewed, Interpreted and Dictated by Vince Palencia MD Transcribed by Jennifer Liz Authenticated and [facility]
[2025-01-29] MEDS: IOPAMIDOL-370 (76%);100ML BOTTLE 70 ML IV (11:42)
[2025-01-29] MEDS: 0.9 % SODIUM CHLORIDE 50 ML VIAL IV (11:42)
[2025-01-29] MEDS: SODIUM CHLORIDE 0.9% 10ML SYR (RAD ONLY) 10 ML IV (11:42)
== END 2025-01-29 12:17 | disposition home or self-care (01) ==
PROVIDERS: Emergency Provider Student in an Organized Health Care Education/Training Program
DX: O26.892 Other specified pregnancy related conditions, second trimester (principal); R06.02 Shortness of breath; M79.605 Pain in left leg; O99.332 Smoking (tobacco) complicating pregnancy, second trimester; F17.290 Nicotine dependence, other tobacco product, uncomplicated; Z3A.21 21 weeks gestation of pregnancy
CPT/HCPCS: 71046; 71275; 80053; 83735; 85025; 85378; 93005; 93971; 99285; Q9967

== ENCOUNTER 2025-02-06 14:50 | Outpatient (CLI) | payer OTHER, SELFPAY ==
--- OUTSIDE RECORDS SUMMARY | 2025-02-06 14:52 | XMS_ITS | Clinical Summary ---
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 20 tablet 01/11/2023 Active Social History Tobacco Use Types Packs/Day Years Used Date Smoking Tobacco: Never Assessed Abuse Screen Answer Date Recorded Unsafe at Home or Work/School Not on file Feels Threatened by Someone? Not on file 02/2024 Does Anyone Keep You from Co ntacting Others or Doint Things Outside the Home? Not on file 01/23/2024 Physical Sign of Abuse Present Not on file 0 01/23/2024 Housing Stability Answer Date Recorded Current Living Arrangements Not on file 04/17 Potentially Unsafe Housing Conditions Not on kaleigh e 04/28/2023 Family and Community Support Answer Jonathan e Recorded Help with Day-to-Day Activities Not on file 04/28/2023 Lonely or Isolated Not on file 04/28/2023 Employment Answer Date Recorded Do you want help finding or keeping work or a tram b? Not on file 04/28/2023 Disabilities Answer Date Recorded Concentrating, Remembering, or Making Decisions Difficulty Not on file 04/28/2023 Doing Errands Independently Difficulty Not on fi le 04/28/2023 Education Answer Date Recorded Help with school or training? Not on file Preferred Language Not on file 04/28/2023 Comments No Sex and Gender Information Value Date Recorded Sex Assigned at Not on file Legal Sex Female 3:25 PM EST Gender Identity Not on file Sexual Orientation Not on file Last Filed Vital Signs Vital Sign Reading Time Taken Comments Blood Pressure 115/72 01/11/2023 1:03 PM EDT Pulse 70 01/11/2023 1:03 PM EDT Temperature 36.6 C (97.9 F) 01/11/2023 10:24 AM EDT Respiratory Rate 16 01/11/2023 1:03 PM EDT Oxygen Saturation 99% 01/11/2023 1:03 PM EDT Inhaled Oxygen Concentration - - Weight 92.1 kg (203 lb) 01/11/2023 10:24 AM EDT Height 167.6 cm (5' 6 ) 01/11/2023 10:24 AM EDT Body Mass Index 32.77 01/11/2023 10:24 AM EDT Plan of Treatment Health Maintenance Due Date Last Done Comments ANNUAL PHYSICAL 1995 Annual Gynecologic Pelvic an d Breast Exam 1995 HEPATITIS C SCREENING 1995 TDAP/TD VACCINES (2 - Td or Tdap) 02/16/2016 006 COVID-19 Vaccine (2023-2 5 season) 2024 INFLUENZA VACCINE 04/17/2025 Pneumococcal Vaccine 0-49 Aged Out No longer eligible based on patient's age to complete this topic Insurance [facility]NA [facility] Care Teams Hair Salon Manager Relationship Specialty Start Date End Date Krystina Feliz PA PCP - General Physician Completion Supervisor 01/11/23
--- OUTSIDE RECORDS SUMMARY | 2025-02-06 14:53 | XMS_ITS | Data Portability ---
Author Organization Formerly [facility] Address [address] [place] [address] Care Team Providers Care Traffic Expert Name Role Phone ZAINAB CH Information Analyst Unavailable Assessment Encounter Date Assessment Date Assessment LastModified by Organization Details LastModified Time 02/09/2022 02/09/2022 27 yo here for pre-op visit Not available 02/09/2022 20:34:44 07/20/2022 07/20/2022 27 yo here for annual FIRING PIN GAUGER exam Not available 07/29/2022 13:25:42 01/05/2023 01/05/2023 27 yo here for AUB, post-coital bleeding, and STI testing Not available 01/09/2023 16:30:51 Plan of Treatment Reminders Order Date Submit Date Provider Last Modified By Organization Details Last Modified Time Details Appointments None recorded. Lab cytology report, thin prep, smear or scraping, cervical or vaginal 2022 023 LAUREL [facility], [address], [place], [address], 3 12:13:17 TSH + free T4, serum 2022 023 LAUREL [facility], [address], [place], [address], 3 10:36:51 testosteron e, free + total, serum 2022 023 RIPPEY [facility], [address], [place], [address], 3 10:36:52 HbA1c (hemoglobin A1c), blood 2022 023 RIPPEY [facility], [address], [place], [address], 3 10:36:55 test, urine 2022 023 [facility] 2 Commerce Information Analyst, [address] [place] [address] , [place], [address], 3 16:31:01 vaginal pathogens panel, AVIVA+probe, vaginal fluid 2022 023 RIPPEY [facility], [address], [place], [address], 3 10:36:50 HIV 1 + 2, meaningful use set 2022 023 RIPPEY [facility], [address], [place], [address], 3 10:36:52 RPR (rapid plasma reagin), serum 2022 023 RIPPEY [facility], [address], [place], [address], 3 10:36:53 HBsAg (hepatitis B surface Ag), EIA, serum 2022 023 RIPPEY [facility], [address], [place], [address], 3 10:36:56 Hepatitis C IgG Ab, qual, serum 2022 023 RIPPEY [facility], [address], [place], [address], 3 10:36:54 cytology report, thin prep, smear or scraping, cervical or vaginal 2022 023 RIPPEY [facility], [address], [place], [address], 3 13:07:39 CBC w/ auto diff 2021 022 [facility]( Lab), [address] [place] [address] [place], [address], 2 12:15:31 CMP, serum or plasma 2021 022 [facility]( Lab), [address] [place] [address] [place], [address], 2 16:27:52 urinalysis, reflex culture 2021 [facility]( Lab), [address] [place] [address] [place], [address], 2 18:13:34 Pap smear tests - FPAR 2.0 set 2021 022 RIPPEY [facility], [address], [place], [address], 2 13:09:33 test, urine 2021 022 [email or web address] [employer] Information [employer]st, [address] [place] [address] , [place], [address], 2 14:59:48 culture, urine 2021 022 RIPPEY [facility], [address], [place], [address], 2 22:07:17 urinalysis, dipstick 2021 022 [email or web address] [employer] Information [employer]st, [address] [place] [address] , [place], [address], 09:23:09 Referral gynecologic surgery referral - lap b/l salpingecto my 2021 022 [email or web address] Not available 12:43:16 Procedures None recorded. Surgeries None recorded. Imaging None recorded. Medication Orders Prelief 65 mg tablet 2021 022 [email or web address] [facility] - [address], [place], [address], 13:08:44 Patient TargetsNo targets recorded. Patient Instructions Encounter Date Encounter Id Patient Instructions Last Modified By Organization Details Last Modified Time 09/24/2021 [id number] Increase fluids Avoid soda and tea Will send urine for culture and call with results. If urine culture is positive, will call in an antibiotic. Not available 09/24/2021 10:24:55 01/12/2022 [id number] Interstitial cystitis questionnaire given and score positive for IC. Discussed IC care guide as well as first line treatments including dietary changes and OTC prelief. Rx prelief given Pap obtained Will sign sterilization paperwork and RTO for preop for lap b/l salpingectomy. [email or web address] Not available 01/12/2022 15:06:18 02/09/2022 [id number] rhythm strip, EKG* Not avail able 02/27/2022 19:29:39 07/20/2022 [id number] medical record request* Not available 02/06/2023 23:02:01 27 yo here for annual FIRING PIN GAUGER exam -pap: collected -Clinical breast exam: WNL -BMI: 40.8; encourage diet/exercise -BP: 116/72 -Contraception: not preventing. Will residential child care counselor on PNV at next visit -Depression screening: PHQ 9 negative -Family Hx: Mother with hx of cervical cancer and leiomyoma Vaginal pain/pelvic pain/dysuapreunia: will get ER records. Pt reports enlarged mesentry. Will get CT scan results. Return for pelvic US Brienbessy deisres excision of sebaceous cysts from her vulva. Will perform this as well upon return [email or web address] Not available 07/29/2022 13:27:23 01/05/2023 [id number] Given post-coita l bleeding and hx of cervical dysplasia, pap collected, but also recommended colpo and she agrees. Given AUB, check labs and return for US. Also performing for pelvic pain Full STI testing performed today nancy Not available 01/09/2023 16:32:35 Reason for Referral Gynecologic Surgery Referral for Sterilization requested lap b/l salpingectomy Referring Physician: Alis Mays, [employer], Encounter Date: 01/12/2022 Results Created Date Observation Date Name Description Value Unit Range Abnormal Flag Note LastModifiedBy Organization Detail LastModifiedTime 09/10/19 22 09/10/2021 rapid strep group A, throa t Strep negati ve Not Available [address] , [place], [address], 09/10/2021 15:09:41 09/25/19 22 09/25/2021 URINE CULTU REEVIN NE urine culture, routine Final report Not Available [facility] ([facility]) [address] [place], [address], 09/25/2021 22:07:17 09/25/19 22 09/25/2021 URINE CULTU REEVIN NE result 1 No growth Not Available [facility] ([facility]) [address] [place], [address], 09/25/2021 22:07:17 09/25/19 22 09/24/2021 urina lysis , dipst ick Leukocytes Modera te Not Available [employer] [address] [place] [address] , [place], [address], 09/24/2021 09:11:16 09/25/19 22 09/24/2021 urina lysis , dipst ick Nitrite negati ve Not Available [employer] [address] [place] [address] , [place], [address], 09/24/2021 09:11:16 09/25/19 22 09/24/2021 urina lysis , dipst ick Urobilinogen .2 Not Available [facility] ille Information Analyst [address] [place] [address] , [place], [address], 09/24/2021 09:11:16 09/25/19 22 09/24/2021 urina lysis , dipst ick Protein Negati ve Not Available [facility] [address] [place] [address] , [place], [address], 09/24/2021 09:11:16 09/25/19 22 09/24/2021 urina lysis , dipst ick pH 6.5 Not Available [facility]/[address] , [place], [address], 09/24/2021 09:11:16 09/25/19 22 09/24/2021 urina lysis , dipst ick Blood Modera te Not Available [facility]/[address] , [place], [address], 09/24/2021 09:11:16 09/25/19 22 09/24/2021 urina lysis , dipst ick Specific [place]wai 1.030 Not Available [facility] lle Information Analyst [address] [place] [address] , [place], [address], 09/24/2021 09:11:16 09/25/19 22 09/24/2021 urina lysis , dipst ick Ketone Negati ve Not Available [facility] [address] [place] [address] , [place], [address], 09/24/2021 09:11:16 09/25/19 22 09/24/2021 urina lysis , dipst ick Bilirubin Negati ve Not Available [facility] [address] [place] [address] , [place], [address], 09/24/2021 09:11:16 09/25/19 22 09/24/2021 urina lysis , dipst ick Glucose Negati ve Not Available [employer] [address] [place] [address] , [place], [address], 09/24/2021 09:11:16 09/25/19 22 09/24/2021 urina lysis , dipst ick Appearance Slight ly Cloudy Not Available [employer] [address] [place] [address] , [place], [address], 09/24/2021 09:11:16 09/25/19 22 09/24/2021 urina lysis , dipst ick Color Yellow Not Available [employer] [address] [place] [address] , [place], [address], 09/24/2021 09:11:16 01/13/20 22 01/14/2022 IGP,R FX APTIM A HPV ALL PTH diagnosis: Commen t NEGAT BALBINA FOR INTRA EPITH ELIAL LESIO N OR MAGGIE MSITH . PREDO RANDA CE OF [place] BACIL LI CONSI STENT WITH SHIFT IN VAGIN AL ARSLAN IS PRESE NT. Not Available [facility] ([facility]) [address] [facility], [place], [address], 01/14/2022 13:09:33 01/13/20 22 01/14/2022 IGP,R FX APTIM A HPV ALL PTH specimen adequacy: Commen t Satis facto ry for evalu ation . Endoc ervic al and/o r squam ous metap lasti c cells (endo cervi kim compo nent) are prese nt. Not Available [facility] ([facility]) [address] [facility], [place], [address], 01/14/2022 13:09:33 01/13/20 22 01/14/2022 IGP,R FX APTIM A HPV ALL PTH clinician provided ICD10: Commen t R87.6 19 Not Available [facility] ([facility]) [address] [place], [address], 01/14/2022 13:09:33 01/13/20 22 01/14/2022 IGP,R FX APTIM A HPV ALL PTH performed by: Alejnadro Huston Not Available [facility] ([facility]) [address] [place], [address], 01/14/2022 13:09:33 01/13/20 22 01/14/2022 IGP,R FX APTIM A HPV ALL PTH . . Not Available [facility] ([facility]) [address] [place], [address], 01/14/2022 13:09:33 01/13/20 22 01/14/2022 IGP,R FX [...] Not Available [facility] ([facility]) [address] [place], [address], 01/14/2022 13:09:33 01/13/20 22 01/14/2022 IGP,R FX APTIM A HPV ALL PTH test methodology: Monae aldana This liqui d based ThinP rep(R ) pap test was scree vahe with the use of an image guide anatoliy gill. Not Available [facility] ([facility]) [address] [place], [address], 01/14/2022 13:09:33 01/13/20 22 01/14/2022 IGP,R FX APTIM A HPV ALL PTH . Commen t The HPV DNA refle x crite matthias were not met with this speci men resul t there fore, no HPV testi ng was perfo rmed. Not Available [facility] ([facility]) [address] [facility], [place], [address], 01/14/2022 13:09:33 01/13/20 22 01/12/2022 pregn arminda test, urine HCG negati ve Not Available [employer] [address] [facility] , [place], [address], 01/12/2022 14:37:35 02/10/20 22 02/09/2022 CBC W/AUT O DIFFE RENTI AL note See Note Order ing Provi tata: Yolanda Ch (Appl eton) Not Available [address] , [place], [address], 02/09/2022 14:27:37 02/10/20 22 02/09/2022 CBC W/AUT O DIFFE RENTI AL white blood cell 8.4 10e3/ uL 4.5-13 .0 normal Not Available [address] [place] [address] Neha Martinez, [place], [address], 02/09/2022 14:27:37 02/10/20 22 02/09/2022 CBC W/AUT O DIFFE RENTI AL red blood cell 4.27 10e6/ uL 3.80-5 .10 normal Not Available [address] [place], [address], 02/09/2022 14:27:37 02/10/20 22 02/09/2022 CBC W/AUT O DIFFE RENTI AL hemoglobin 12.8 g/dL 11.5-1 5.3 normal Not Available [address] , [place], [address], 02/09/2022 14:27:37 02/10/20 22 02/09/2022 CBC W/AUT O DIFFE RENTI AL hematocrit 38.6 % 34.0-4 6.0 normal Not Available [address] [place]ha Martinez, [place], [address], 02/09/2022 14:27:37 02/10/20 22 02/09/2022 CBC W/AUT O DIFFE RENTI AL mean cell volume 90 fL 78.0-9 8.0 normal Not Available [address] [place]ha Martinez, [place], [address], 02/09/2022 14:27:37 02/10/20 22 02/09/2022 CBC W/AUT O DIFFE RENTI AL mean cell HGB 30.0 pg 25.0-3 5.0 normal Not Available [address] [place]ha Martinez, [place], [address], 02/09/2022 14:27:37 02/10/20 22 02/09/2022 CBC W/AUT O DIFFE RENTI AL mean cell HGB concentratio n 33.2 g/dL 31.0-3 6.0 normal Not Available [address] Ne[place], [place], [address], 02/09/2022 14:27:37 02/10/20 22 02/09/2022 CBC W/AUT O DIFFE RENTI AL red cell distribution width 13.3 % 11.0-1 5.0 normal Not Available [address] Neha Martinez, [place], [address], 02/09/2022 14:27:37 02/10/20 22 02/09/2022 CBC W/AUT O DIFFE RENTI AL platelet count 223 10e3/ uL 150-40 0 normal Not Available [address] [place] Martinez, [place], [address], 02/09/2022 14:27:37 02/10/20 22 02/09/2022 CBC W/AUT O DIFFE RENTI AL immature granulocyte % 0 0-1 normal Not Available [address] , [place], [address], 02/09/2022 14:27:37 02/10/20 22 02/09/2022 CBC W/AUT O DIFFE RENTI AL neutrophil % 71 % 35-75 normal Not Available [address] , [place], [address], 02/09/2022 14:27:37 02/10/20 22 02/09/2022 CBC W/AUT O DIFFE RENTI AL lymphocyte % 23 % 10-50 normal Not Available [address] , [place], [address], 02/09/2022 14:27:37 02/10/20 22 02/09/2022 CBC W/AUT O DIFFE RENTI AL monocyte % 6 % 0-15 normal Not Available [address] , [place], [address], 02/09/2022 14:27:37 02/10/20 22 02/09/2022 CBC W/AUT O DIFFE RENTI AL eosinophil % 0 % 0-5 normal Not Available [address] Neha Martinez, [place], [address], 02/09/2022 14:27:37 02/10/20 22 02/09/2022 CBC W/AUT O DIFFE RENTI AL basophil % 0 % 0-5 normal Not Available [address] , [place], [address], 02/09/2022 14:27:37 02/10/20 22 02/09/2022 CBC W/AUT O DIFFE RENTI AL immature granulocyte # 0.02 x1000 /uL 0-0.05 normal Not Available [address] , [place], [address], 02/09/2022 14:27:37 02/10/20 22 02/09/2022 CBC W/AUT O DIFFE RENTI AL neutrophil # 5.90 x1000 /uL 1.50-8 .00 normal Not Available [address] , [place], [address], 02/09/2022 14:27:37 02/10/20 22 02/09/2022 CBC W/AUT O DIFFE RENTI AL lymphocyte # 1.92 x1000 /uL 1.20-5 .20 normal Not Available [address] , [place], [address], 02/09/2022 14:27:37 02/10/20 22 02/09/2022 CBC W/AUT O DIFFE RENTI AL monocyte # 0.49 x1000 /uL 0.40-0 .90 normal Not Available [address] [place] Martinez, [place], [address], 02/09/2022 14:27:37 02/10/20 22 02/09/2022 CBC W/AUT O DIFFE RENTI AL eosinophil # 0.02 x1000 /uL 0.00-0 .50 normal Not Available [address] [place]ha Martinez, [place], [address], 02/09/2022 14:27:37 02/10/20 22 02/09/2022 CBC W/AUT O DIFFE RENTI AL basophil # 0.02 x1000 /uL 0.00-0 .30 normal Not Available [address] , [place], [address], 02/09/2022 14:27:37 02/10/20 22 02/09/2022 CBC W/AUT O DIFFE RENTI AL NRBC automated 0.0 /100_ WBC Not Available [address] , [place], [address], 02/09/2022 14:27:37 02/10/20 22 02/09/2022 CBC W/AUT O DIFFE SIMÓN VOGT performing lab see note ML - [facility] N[facility] MED [facility] R [address] [facility] [id number] Not Available [address] , [place], [address], 02/09/2022 14:27:37 02/10/20 22 02/09/2022 COMP METAB OLIC PANEL note See Note Order ing Provi tata: Yolanda Ch (Appl eton) Not Available [address] , [place], [address], 02/09/2022 14:41:10 02/10/20 22 02/09/2022 COMP METAB OLIC PANEL sodium 138 mmol/ L 136-14 5 normal Not Available [address] , [place], [address], 02/09/2022 14:41:10 02/10/20 22 02/09/2022 COMP METAB OLIC PANEL potassium 4.1 mmol/ L 3.5-5. 1 normal Not Available [address] , [place], [address], 02/09/2022 14:41:10 02/10/20 22 02/09/2022 COMP METAB OLIC PANEL chloride 103 mmol/ L 98-107 normal Not Available [address] , [place], [address], 02/09/2022 14:41:10 02/10/20 22 02/09/2022 COMP METAB OLIC PANEL carbon dioxide 26 mmol/ L 24-33 normal Not Available [address] , [place], [address], 02/09/2022 14:41:10 02/10/20 22 02/09/2022 COMP METAB OLIC PANEL anion gap 13.1 mmol/ L 10-20 normal Not Available [address] , [place], [address], 02/09/2022 14:41:10 02/10/20 22 02/09/2022 COMP METAB OLIC PANEL glucose 86 mg/dL 70-99 normal Not Available [address]ha Martinez, [place], [address], 02/09/2022 14:41:10 02/10/20 22 02/09/2022 COMP METAB OLIC PANEL blood urea nitrogen 12 mg/dL 7-18 normal Not Available [address] , [place], [address], 02/09/2022 14:41:10 02/10/20 22 02/09/2022 COMP METAB OLIC PANEL creatinine 1.06 mg/dL 0.55-1 .02 high Not Available [address] [place], [place], [address], 02/09/2022 14:41:10 02/10/20 22 02/09/2022 COMP METAB OLIC PANEL BUN/creatini ne ratio 11 12-20 low Not Available [address] [place], [place], [address], 02/09/2022 14:41:10 02/10/20 22 02/09/2022 COMP METAB OLIC PANEL total protein 7.8 g/dL 6.4-8. 2 normal Not Available [address] , [place], [address], 02/09/2022 14:41:10 02/10/20 22 02/09/2022 COMP METAB OLIC PANEL albumin 4.0 g/dL 3.4-5. 0 normal Not Available [address] [place], [address], 02/09/2022 14:41:10 02/10/20 22 02/09/2022 COMP METAB OLIC PANEL globulin 3.8 g/dL 1.5-4. 0 normal Not Available [address] [place], [address], 02/09/2022 14:41:10 02/10/20 22 02/09/2022 COMP METAB OLIC PANEL albumin/glob ulin ratio 1.1 0.5-2. 0 normal Not Available [address] [place], [address], 02/09/2022 14:41:10 02/10/20 22 02/09/2022 COMP METAB OLIC PANEL calcium 9.4 mg/dL 8.5-10 .1 normal Not Available [address] , [place], [address], 02/09/2022 14:41:10 02/10/20 22 02/09/2022 COMP METAB OLIC PANEL osmolality serum calculated 274 mOsm/ kg 272-28 8 normal Not Available [address] [place], [address], 02/09/2022 14:41:10 02/10/20 22 02/09/2022 COMP METAB OLIC PANEL glom filtr rate (estimated) > 60 mL/mi n >60 normal Not Available [address] [place], [address], 02/09/2022 14:41:10 02/10/20 22 02/09/2022 COMP METAB OLIC PANEL GFR est (if -amer ican) > 60 mL/mi n >60 normal Not Available [address] [place], [address], 02/09/2022 14:41:10 02/10/20 22 02/09/2022 COMP METAB OLIC PANEL bilirubin total 0.4 mg/dL 0.2-1. 0 normal Use of this assay is not recom maxim d for patie nts under going treat ment with Eltro mbopa g due to the poten tial for false ly eleva idris resul ts. Not Available [address] , [place], [address], 02/09/2022 14:41:10 02/10/20 22 02/09/2022 COMP METAB OLIC PANEL SGOT/AST 12 U/L 15-37 low Not Available [address] [place], [address], 02/09/2022 14:41:10 02/10/20 22 02/09/2022 COMP METAB OLIC PANEL SGPT/ALT 18 U/L 14-59 normal Not Available [address] , [place], [address], 02/09/2022 14:41:10 02/10/20 22 02/09/2022 COMP METAB OLIC PANEL alkaline phosphatase total 35 U/L 46-116 low Not Available [address] , [place], [address], 02/09/2022 14:41:10 02/10/20 22 02/09/2022 COMP METAB OLIC PANEL performing lab see note - [facility] R [address] [facility] [address] Not Available [address] [place], [address], 02/09/2022 14:41:10 02/10/20 22 02/09/2022 URINA LYSIS COMPL ETE note See Note Order ing Provi tata: Yolanda Ch (Appl eton) Not Available [address] [place], [address], 02/09/2022 14:42:16 02/10/20 22 02/09/2022 URINA LYSIS COMPL ETE UA method of collection CLEAN CATCH Not Available [address] [place], [place], [address], 02/09/2022 14:42:16 02/10/20 22 02/09/2022 URINA LYSIS COMPL ETE UA color LT YELLOW yellow Not Available [address] , [place], [address], 02/09/2022 14:42:16 02/10/20 22 02/09/2022 URINA LYSIS COMPL ETE UA appearance SL.MICHELE UDY clear Not Available [address] , [place], [address], 02/09/2022 14:42:16 02/10/20 22 02/09/2022 URINA LYSIS COMPL ETE UA glucose dipstick NEGATI VE negati ve Not Available [address] [place], [place], [address], 02/09/2022 14:42:16 02/10/20 22 02/09/2022 URINA LYSIS COMPL ETE UA bilirubin dipstick NEGATI VE negati ve Not Available [address] [place], [place], [address], 02/09/2022 14:42:16 02/10/20 22 02/09/2022 URINA LYSIS COMPL ETE UA ketone dipstick NEGATI VE negati ve Not Available [address] [place], [address], 02/09/2022 14:42:16 02/10/20 22 02/09/2022 URINA LYSIS COMPL ETE UA specific gravity 1.010 1.005- 1.030 normal Not Available [address] [place], [address], 02/09/2022 14:42:16 02/10/20 22 02/09/2022 URINA LYSIS COMPL ETE UA blood dipstick 3+ negati ve abnormal Not Available [address] [place], [address], 02/09/2022 14:42:16 02/10/20 22 02/09/2022 URINA LYSIS COMPL ETE UA pH dipstick 7.0 5.0-9. 0 normal Not Available [address] [place], [address], 02/09/2022 14:42:16 02/10/20 22 02/09/2022 URINA LYSIS COMPL ETE UA protein dipstick NEGATI VE negati ve Not Available [address] [place], [address], 02/09/2022 14:42:16 02/10/20 22 02/09/2022 URINA LYSIS COMPL ETE UA urobilinogen dipstick NEGATI VE mg/dL <1 Not Available [address] , [place], [address], 02/09/2022 14:42:16 02/10/20 22 02/09/2022 URINA LYSIS COMPL ETE UA nitrite dipstick NEGATI VE negati ve Not Available [address] [place], [address], 02/09/2022 14:42:16 02/10/20 22 02/09/2022 URINA LYSIS COMPL ETE UA leukocyte esterase dipstick 2+ negati ve abnormal Not Available [address] [place], [address], 02/09/2022 14:42:16 02/10/20 22 02/09/2022 URINA LYSIS COMPL ETE UA RBC 0-5 RBC/h pf none seen abnormal Not Available [address] , [place], [address], 02/09/2022 14:42:16 02/10/20 22 02/09/2022 URINA LYSIS COMPL ETE UA WBC 0-5 WBC/h pf 0-5 Not Available [address] , [place], [address], 02/09/2022 14:42:16 02/10/20 22 02/09/2022 URINA LYSIS COMPL ETE UA epithelial cells 21-30 SQUAMO US epi/h pf 0-5 abnormal Not Available [address] , [place], [address], 02/09/2022 14:42:16 02/10/20 22 02/09/2022 URINA LYSIS COMPL ETE UA bacteria 1+ none seen abnormal Not Available [address] , [place], [address], 02/09/2022 14:42:16 02/10/20 22 02/09/2022 URINA LYSIS COMPL ETE UA mucus NONE SEEN none seen Not Available [address] , [place], [address], 02/09/2022 14:42:16 02/10/20 22 02/09/2022 URINA LYSIS COMPL ETE UA amorphous sediment NONE SEEN none seen Not Available [address] , [place], [address], 02/09/2022 14:42:16 02/10/20 22 02/09/2022 URINA LYSIS COMPL ETE comment 1 >20 EPI'S No Cultu re Perfo rmed. Speci men faile d Refle x Cultu re Crite matthias. Not Available [address] [place], [address], 02/09/2022 14:42:16 02/10/20 22 02/09/2022 URINA LYSIS COMPL ETE performing lab see note - [facility] R [address] [facility] [id number] Not Available [facility] [address], [place], [address], 02/09/2022 14:42:16 07/20/19 23 07/23/2022 IGP, APTIM A HPV, RFX 16/18 ,45 HPV aptima Negati ve negati ve This nucle ic acid ampli ficat ion test detec ts fourt een high- risk HPV types (16,1 8,31, 33,35 ,39,4 5,51, 52,56 ,58,5 9,66, 68) witho ut diffe renti ation . Not Available [facility] (Lab) [id number] [address], [place], [address], 07/25/2022 13:07:39 07/20/19 23 07/25/2022 IGP, APTIM A HPV, RFX 16/18 ,45 diagnosis: Commen t NEGAT BALBINA FOR INTRA EPITH ELIAL LESIO N OR MAGGIE SMITH . PREDO MINAN CE OF [place] BACIL LI CONSI STENT WITH SHIFT IN VAGIN AL ARSLAN IS PRESE NT. Not Available [facility] (Lab) [id number] [id number], [place], [address], 07/25/2022 13:07:39 07/20/19 23 07/25/2022 IGP, APTIM A HPV, RFX 16/18 ,45 specimen adequacy: Commen t Satis facto ry for evalu ation . No endoc ervic al compo nent is ident ified . Not Available [facility] (Lab) [id number] [facility] [address], [place], [address], 07/25/2022 13:07:39 07/20/19 23 07/25/2022 IGP, APTIM A HPV, RFX 16/18 ,45 clinician provided ICD10: Monae aldana Z12.4 Not Available [facility] (Lab) [id number] [place] [address], [place], [address], 07/25/2022 13:07:39 07/20/19 23 07/25/2022 IGP, APTIM A HPV, RFX 16/18 ,45 performed by: Monae Garcia Sr, Cytojovan aldana (ASCP ) Not Available [facility] (Lab) [address] [address], [place], [address], 07/25/2022 13:07:39 07/20/19 23 07/25/2022 IGP, APTIM A HPV, RFX 16/18 ,45 . . Not Available [facility] (Lab) [address] [place] [address], [place], [address], 07/25/2022 13:07:39 07/20/19 23 07/25/2022 IGP, APTIM [...] Not Available [facility] ([facility]) [address] [address], [place], [address], 07/25/2022 13:07:39 07/20/19 23 07/25/2022 IGP, APTIM A HPV, RFX 16/18 ,45 test methodology: Monae aldana This liqui d based ThinP rep(R ) pap test was scree vahe with the use of an image guide anatoliy lance Not Available [facility] (Lab) [address] [place] [address], [place], [address], 07/25/2022 13:07:39 07/20/19 23 07/25/2022 IGP, APTIM A HPV, RFX 16/18 ,45 HPV genotype reflex Commen t Crite matthias not met, HPV Genot ype not perfo rmed. Not Available [facility] ([facility]) [address], [place], [address], 07/25/2022 13:07:39 01/06/20 23 01/06/2023 NUSWA B VAGIN ITIS PLUS (VG+) atopobium vaginae Low - 0 score Not Available [facility] ([facility]) [address] [place], [address], 01/11/2023 10:36:49 01/06/20 23 01/06/2023 NUSWA B VAGIN ITIS PLUS (VG+) bvab 2 Modera te - 1 score Not Available [facility] ([facility]) [address] [facility], [place], [address], 01/11/2023 10:36:49 01/06/20 23 01/06/2023 NUSWA B [...] Not Available [facility] ([facility]) [address] [place], [address], 01/11/2023 10:36:49 01/06/20 23 01/06/2023 NUSWA B VAGIN ITIS PLUS (VG+) bisi albicans, AVIVA Negati ve negati ve Not Available [facility] ([facility]) [address] [facility], [place], [address], 01/11/2023 10:36:49 01/06/20 23 01/06/2023 NUSWA B VAGIN ITIS PLUS (VG+) bisi glabrata, AVIVA Negati ve negati ve Not Available [facility] ([facility]) [address] [facility], [place], [address], 01/11/2023 10:36:49 01/06/20 23 01/06/2023 NUA B VAGIN ITIS PLUS (VG+) trich vag by AVIVA Negati ve negati ve Not Available [facility] ([facility]) [address] [facility], [place], [address], 01/11/2023 10:36:49 01/06/20 23 01/06/2023 NUSWA B VAGIN ITIS PLUS (VG+) chlamydia trachomatis, AVIVA Negati ve negati ve Not Available [facility] ([facility]) [address] [facility], [place], [address], 01/11/2023 10:36:49 01/06/20 23 01/06/2023 NUSWA B VAGIN ITIS PLUS (VG+) neisseria gonorrhoeae, AVIVA Negati ve negati ve Not Available [facility] ([facility]) [address] [place], [address], 01/11/2023 10:36:49 01/06/20 23 01/06/2023 TSH+F REE T4 TSH 0.400 uIU/m L 0.450- 4.500 below low normal Not Available [facility] ([facility]) [address] [place], [address], 01/11/2023 10:36:51 01/06/20 23 01/06/2023 TSH+F REE T4 T4,free(dire ct) 1.17 NG/dL 0.82-1 .77 Not Available [facility] ([facility]) [address] [place], [address], 01/11/2023 10:36:51 01/06/20 23 01/06/2023 TESTO STERO NE,FR EE AND TOTAL testosterone 46 NG/dL 13- Not Available [facility] ([facility]) [address] [facility], [place], [address], 01/11/2023 10:36:51 01/06/2001/11/2023 TESTO STERO NE,FR EE AND TOTAL free testosterone (direct) 1.0 pg/mL 0.0-4. 2 Not Available [facility] ([facility]) [address] [facility], [place], [address], 01/11/2023 10:36:51 01/06/20 23 01/06/2023 HIV AB/P2 4 AG WITH REFLE X HIV Ab/P24 Ag screen Non Reacti ve non reacti ve HIV Negat balbina HIV-1 /HIV- 2 antib odies and HIV-1 p24 antig en were NOT detec idris. There is no labor atory evide nce of HIV infec tion. Not Available [facility] ([facility]) [address] [facility], [place], [address], 01/11/2023 10:36:52 01/06/20 23 01/06/2023 RPR, RFX QN RPR/C ONFIR M TP RPR Non Reacti ve non reacti ve Not Available [facility] ([facility]) [address] [facility], [place], [address], 01/11/2023 10:36:53 01/06/20 23 01/06/2023 HCV ANTIB [...] Not Available [facility] ([facility]) [address] [facility], [place], [address], 01/11/2023 10:36:54 01/06/20 23 01/06/2023 HEMOG LOBIN A1C hemoglobin A1C 4.7 % 4.8-5. 6 below low normal Predi abete s: 5.7 - 6.4 Diabe danilo: >6.4 Glyce morena contr ol for adult s with diabe danilo: <7.0 Not Available [facility] ([facility]) [address] [facility], [place], [address], 01/11/2023 10:36:55 01/06/2001/06/2023 HBSAG SCREE N HBsAg screen Negati ve negati ve Not Available [facility] ([facility]) [address] [facility], [place], [address], 01/11/2023 10:36:56 01/07/2001/06/2023 IGP, APTIM A HPV, RFX 16/18 ,45 HPV aptima Negati ve negati ve This nucle ic acid ampli ficat ion test detec ts fourt een high- risk HPV types (16,1 8,31, 33,35 ,39,4 5,51, 52,56 ,58,5 9,66, 68) witho ut diffe renti ation . Not Available [facility] ([facility]) [address] [facility], [place], [address], 01/07/2023 12:13:17 01/07/20 23 01/07/2023 IGP, APTIM A HPV, RFX 16/18 ,45 diagnosis: Commen t NEGAT BALBINA FOR INTRA EPITH ELIAL LESIO N OR MALIG LUIS . SPECI MEN REPRO CESSE D FOR INTER PRETA TION USING GLACI AL ACETI C ACID (GAA) . Not Available [facility] ([facility]) [address] [place], [address], 01/07/2023 12:13:17 01/07/20 23 01/07/2023 IGP, APTIM A HPV, RFX 16/18 ,45 specimen adequacy: Monae aldana Satis facto ry for evalu ation . Endoc ervic al and/o r squam ous metap lasti c cells (endo cervi kim compo nent) are prese nt. Areas of parti ally obscu ring blood are prese nt. Not Available [facility] ([facility]) [address] [place], [address], 01/07/2023 12:13:17 01/07/2001/07/2023 IGP, APTIM A HPV, RFX 16/18 ,45 clinician provided ICD10: Monae aldana Z11.3 N93.9 N93.0 Not Available [facility] ([facility]) [address] [place], [address], 01/07/2023 12:13:17 01/07/20 23 01/07/2023 IGP, APTIM A HPV, RFX 16/18 ,45 performed by: Monae jesus, Cytot stefany aldana (ASCP ) Not Available [facility] ([facility]) [address] [place], [address], 01/07/2023 12:13:17 01/07/2001/07/2023 IGP, APTIM A HPV, RFX 16/18 ,45 . . Not Available [facility] ([facility]) [address] [place], [address], 01/07/2023 12:13:17 01/07/20 23 01/07/2023 IGP, APTIM [...] Not Available [facility] ([facility]) [address] [facility], [place], [address], 01/07/2023 12:13:17 01/07/20 23 01/07/2023 IGP, APTIM A HPV, RFX 16/18 ,45 test methodology: Remaen t This liqui d based ThinP rep(R ) pap test was scree vahe with the use of an image guide anatoliy gill. Not Available [facility] ([facility]) [address] [facility], [place], [address], 01/07/2023 12:13:17 01/07/20 23 01/07/2023 IGP, APTIM A HPV, RFX 16/18 ,45 HPV genotype reflex Commen t Crite matthias not met, HPV Genot ype not perfo rmed. Not Available [facility] ([facility]) [address] [place], [address], 01/07/2023 12:13:17 01/10/20 23 01/09/2023 pregn arminda test, urine HCG negati ve Not Available [employer] [address] [facility] , [place], [address], 01/09/2023 16:30:54 10/17/19 22 10/16/2021 CT, abdom en + pelvi s, w/o contr ast No observ ation record ed. [email or web address] [facility] ([facility]) [address], [place], [place], [address], 10/18/2021 23:08:20 11/22/19 22 11/21/2021 XR, chest , 2 view No observ ation record ed. [address], [place], [address], 11/25/2021 11:38:59 11/22/19 22 11/21/2021 imagi ng/di agnos tic resul t No observ ation record ed. [address], [place], [address], 11/25/2021 11:38:47 Result Notes None recorded. Problems Name Problem SNOMED Code Status Onset Date Resolution Date Notes Provider Name and Address Organization Details Recorded Time Anemia of pregnanc y 29695692 Completed 09/25/2019 Removal Reason: resolved Zainab Ch MD [address], [place], [address] , [place] [facility] 0 17:43:51 Body mass index 30+ - obesity 884851469 Completed 201709/24/2021 Araseli Mills APRN [address], [place], [address] , [place] [facility] 10:23:33 Polycyst ic ovaries Active 2017 Amelie Mayfield null, [place] - [facility] 2 13:09:23 Oligomen orrhea 82935498 Completed 201708/16/2021 Zainab Ch MD [address], [place], [address] , [place] [facility] 2 19:31:58 Abnormal uterine bleeding 42072811893 100 Completed 201708/16/2021 Zainab Ch MD [address], [place], [address] , [place] [facility] 2 19:31:46 Hidraden itis 85522957 Active 2017 Amelie Mayfield null[place] [facility] 13:09:13 Pelvic floor dysfunct ion 894944936 Active 2018 Amelie May[place] [facility] 2 13:09:18 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 a 539001072 Active 2019 Amelie [place] [facility] 2 13:08:57 History of SARS-CoV -2 73484081860 5462428 Completed 202010/01/2020 Bibi Gordon null, [place] [facility] 1 11:37:52 Essentia l hyperten morelia 88805979 Active 2020 Amelie May[place] [facility] 13:09:07 Migraine 82239250 Active 2020 Amelie [place] [facility] 13:09:17 Gastroes ophageal reflux disease 119823125 Active 2020 Amelie [place] [facility] 13:09:11 Chronic constipa tion 610446021 Active 2020 Amelie [place] [facility] 13:09:01 Dysuria 97237827 Active 2021 Amelie May[place] [facility] 13:09:03 Body mass index 40+ - severely obese 356227947 Active 2021 Amelie [place] [facility] 2 13:08:55 Morbid obesity 411187092 Active 2022 Ag Crouch RN [address], [place], [address] , [place] [facility] 14:17:15 Problem Notes None recorded. Procedures Surgical History Date Name Laterality Status Provider Name and Address Organization Details Recorded Time 03/08/20 Colposcopy cancelled Amelie Mayfield [place] - [facility] 01/27/20 09:08:30 01/06/20 Date of Last Pap Smear completed Zainab Ch MD [address], [place], [address], [place] [facility] 10/30/2023 19:57:44 01/27/20 Colposcopy completed Zainab Ch MD [address], [place], [address], [place] [facility] 2021 20:07:34 01/27/20 21 Colposcopy completed Araseli Mills APRN [address], [place], [address], [place] [facility] 09/24/2021 09:21:24 01/27/20 21 Colposcopy completed Fatuma Tsai [place] - [facility] 01/11/2022 10:21:09 07/18/19 21 Date of Last Colonoscopy completed Monica Vásquez [place] - [facility] 08/12/2021 14:09:13 09/11/19 20 LEEP Procedure completed Zainab Ch MD [address], [place], [address], [place] [facility] 09/11/2019 16:00:11 09/11/19 20 [...] Name and Address Organization Details Recorded Time [id number] Reglan medicatio n other moderate Not available [...] Updated DateTime 07/20/2022 167.64 cm 40.8 kg/m2 487845.87 g 116/72 mm[Hg] Monica Vásquez [place] [facility] 07/20/2022 16:34:38 Date Recorded Body height Body mass index (BMI) Body weight Pain severity - 0-10 verbal numeric rating [Score] - Reported Systolic And Diastolic Provider Name and Address Organization Details Last Updated DateTime 09/24/2021 167.64 cm 40.2 kg/m2 361444.5 g 0 116/78 mm[Hg] Erinjackeline Gibbons [facility] 2 09:12:59 Date Recorded Body height Body mass index (BMI) Body weight Systolic And Diastolic Provider Name and Address Organization Details Last Updated DateTime 01/05/2023 167.64 cm 40 kg/m2 955570.91 g 118/82 mm[Hg] Amelie Mayfield [facility] 01/05/2023 14:16:13 Date Recorded Body height Body mass index (BMI) Body weight Pain severity - 0-10 verbal numeric rating [Score] - Reported Systolic And Diastolic Provider Name and Address Organization Details Last Updated DateTime 01/12/2022 167.64 cm 40.2 kg/m2 327603.5 g 0 104/62 mm[Hg] Erincody Gibbons [facility] 2 14:34:42 Date Recorded Body height Body mass index (BMI) Body weight Systolic And Diastolic Provider Name and Address Organization Details Last Updated DateTime 02/09/2022 167.64 cm 39.1 kg/m2 558611.35 g 126/78 mm[Hg] Amelie Mayfield [facility] 02/09/2022 13:07:43 Social History Question Answer Notes LastModified by Organizat ion Details LastModified Time Tobacco Smoking Status Former Smoker Monica wilkinson, [place] - [facility] 07/20/2022 16:27:52 Able To Swim? [...] COVID-19 While That Person Was Ill? No [email or web address] Information not available 02/09/2022 Have You Been [...] Or The Highest Degree You Have Received? [id number] Information not available 01/30/2018 How Many Days [...] Much Tobacco Do You Smoke? 0.5 PPD [email or web address] Information not available 02/09/2022 General Stress Level [...] ? No, I Don't Want To Become [email or web address] Information not available 02/09/2022 What Is Your Reason For Having No Contraceptive Method At Start Of This Visit? Other Information not available 08/12/2021 Sex: Female Functional Status Question Answer Note LastModified by Organizat ion Details LastModified Time Do you or have you ever used smokeless tobacco? Never used smokeless tobacco [email or web address] Information not available 12/05/2020 Are you currently [...] not available 01/30/2018 What is your occupation? [employer]) Information not available 07/20/2022 Mental Status Question Answer Note LastModified by Organizat ion Details LastModified Time Do you feel stressed (tense, restless, nervous, or anxious, or unable to sleep at night)? [id number] Information not available 08/12/2021 Do you have [...] Not available 2018 15:18:11 Mother Uterine leiomyoma [email or web address] Not available 2021 09:10:51 Medical History Condition Response Coronary Artery Disease N Blood Diseases N Hyperthyroidism N Rheumatoid arthritis N Blood Transfusion N amputation N Colonoscopy N COPD N Depression N Pneumonia N Incontinence N Edema N Anxiety Disorder N Obesity N Restless Leg Syndrome N Infertility N Polyps N Carpal Tunnel N Mental Disorder N Acid Reflux (GERD) N Stroke N Varicosities N Tendonitis N Skin Cancer N Fibromyalgia N Anal Fissure N Irritable Bowel Syndrome N Kidney Disease N Hospitalizations N Gallstones N Goiter N Acne N Skin Problems N Eating Disorder N Meyer's Esophagus N Hypertriglyceridemia N MRSA exposure N Constipation Y Embolism N Deviated Septum N Tuberculosis N Myocardial Infarction N Asthma N Vertigo N Pulmonary Embolism N Chronic Ear Infections N Chicken Pox N Von Willebrands Disease N Lung Disease N Defects or Inherited Disease N Developmental or Behavioral Disorders N Difficulty Swallowing N Ovarian Cyst N Anesthesia Complications N Testosterone Deficiency N Meniere's disease N Head Injury/Concussion N Interstitial Cystitis N Congenital Anomalies N Hypoglycemia N Blood clot N Cellulitis N Endometriosis N Fracture N Liver Disease N Panic Disorder N Schizophrenia N Spina Bifida N Parkinson's Disease N STI N Angina N Thyroid Problems N GI Problems N ADD/ADHD N Anemia Y Multiple Sclerosis N Lumbago N Psychiatric Illness N Diabetes N Congestive Heart Failure (CHF) N Hyperlipidemia N Syncope N Abuse/Domestic Violence N Attention Deficient Disorder N Ulcerative colitis N Aneurysm N Bronchitis N Heart Disease N Suicidal Ideation N Pre-Eclampsia N Hypertension Y Pancreatitis N Other N Gout N Atrial Fibrillation N congenital heart disease N Kidney Stones N Erectile Dysfunction N Skin Lesions N Murmur N Alzheimer's Disease N Migraine Headaches N Tobacco Abuse N Muscle, Joint, or Bone Problems N Hemorrhoids N Vision or Eye Problems N Arthritis N Cancer N Crohn's Disease N Hypercholesterolemia N Headaches N Heart Problems N Ear or Hearing Problems N Kidney or Bladder Problems N Vitamin B12 Deficiency N AIDS/HIV N Mitral Valve Disorders N Hepatitis N Thyroid Cancer N Neuropathy N History of DVT N Herniated Disc N Autism Spectrum Disorder (ASD) N Thrombophilias N Breast Cancer N Hernia N Plantar Fasciitis N Hospital Admission Other Than N Hypothyroidism N Breast Problem N Vitamin D Deficiency N Bladder or Kidney Problems N Concussion N Allergies/Hayfever N Osteoarthritis N Disc Protrusion N Esophagitis N Abnormal PAP N Mental Illness N Ovarian Cancer N Bedwetting N Degenerative Disc Disease N Seizures/Epilepsy N Insomnia N Eczema N Diverticulitis N Dementia N Cerebrovascular Disease N Depression N Guillain-Kentwood N Sleep Apnea N Osteoporosis N Gynecological History Statement/Question Response Abnormal [...] SNOMED-CT Code Diagnosis ICD10 Code Diagnosis Note [id number] Naheed Hidalgo APRN [address] [place] [address] 09/22/2017 12:33:02 09/22/2017 12:51:30 Eustachian tube disorder 37908446 H69.90 [id number] Naheed Hidalgo APRN [address] [place] [address] 01/03/2018 08:05:15 01/03/2018 08:45:21 Hypothyroidism 91458160 E03.9 Anemia 312310205 D64.9 Vitamin D deficiency 347 13920 E55.9 [id number] MD John [employer] [address] [place] [address] [place] [id number] 01/30/2018 15:07:25 01/30/2018 15:58:53 Pain in pelvis 91266423 R10.2 Venereal d isease screening 829360877 Z11.3 Oligomenorrhea 04211819 N91.5 Polycystic ovaries 84379 008 E28.2 Hidradenit is suppurativa 58106423 L73.2 [id number] MD John [employer] [address] [place] [address] [place] [address] 02/20/2018 13:18:56 02/20/2018 14:22:33 Oligomenorrhea 56654166 N91.5 Polycystic ovaries 57479 008 E28.2 Pain in pelvis 30959007 R10.2 [id number] MD John [employer]ount [employer] [address] [place] [address] [place] [id number] 05/02/2018 09:02:13 05/02/2018 09:25:51 Abnormal uterine bleeding 1351977247 9100 N93.9 Oligomenorrhea 44258052 N91.5 Polycystic ovaries 74136 008 E28.2 Hidradenit is suppurativa 56578940 L73.2 [id number] Naheed Hidalgo APRN [address] [place] [address] 06/06/2018 09:51:55 06/06/2018 11:19:11 Acute bronchitis 07527224 J20.9 Cough 88075035 R05 Fatigue 54883727 R53.83 [id number] Sue Anglin APRN [address] [place] [address] 06/28/2018 12:48:18 06/28/2018 17:16:50 Acne 07867218 L70.9 We discussed support measures.P atient provided with printed informatio n on preventati ve and support measures for acne.We discussed starting Spironolac tone and will re-evaluat e in the future. Hidradenit is suppurativa 28450811 L73.2 Patient pleased with the current control with her H.S. She believes that the surgical wash is helping a great deal and will continue use. [id number] MD John [employer] [address] [place] [address] [place] [id number] 09/11/2018 13:52:08 09/11/2018 14:32:49 Abnormal uterine bleeding 0694983324 9100 N93.9 Hidradenitis 89305760 L7 3.2 Polycystic ovaries 71327 008 E28.2 Venereal d isease screening 976202398 Z11.3 [id number] MD John [employer]ount [employer] [address] [place] [address] [place] [id number] 11/02/2018 13:12:35 11/02/2018 13:46:27 Vaginal discharge 421765100 N89.8 Candidiasis of vagina 72 987874 B37.3 [id number] Naheed Hidalgo APRN [address] [place] [address] 11/08/2018 14:48:45 11/08/2018 15:34:32 Fatigue 52405299 R53.83 Memory impairment 393301 006 R41.3 Dizziness and giddiness 423846413 R42 [id number] Naheed Hidalgo APRN [address] [place] [address] 11/21/2018 09:59:56 11/21/2018 15:29:14 Vitamin B12 deficiency (non anemic) 22209916 E53.8 Vitamin D deficiency 347 63540 E55.9 [id number] Naheed Hidalgo APRN [address] [place] [address] 01/10/2019 16:00:28 01/10/2019 16:27:14 Acne 47742283 L70.9 Memory impairment 713591 006 R41.3 Chronic constipation 236 396218 K59.09 Food intolerance 8553859 0 K90.49 Impairment of balance 38 4915514 R26.89 Paresthesi a of lower extremity 396025717 R20.2 [id number] MD John [employer] [address] [place] [address] [place] [id number] 03/14/2019 14:57:40 03/14/2019 15:48:16 Routine gynecologic examination done 6818199047 9101 Z01.419 Depression screening 171 329391 Z13.89 PHQ 9 negative Diet education 33758294 Z71.3 Counseling 683357964 Z71 .82 Exercise counseljohn nice Patient encouraged to exercise 30 minutes 5 days a week. Examinatio n of blood pressure 383531095 Z01.30 Normotensi ve Screening for malignant neoplasm of cervix 875557668 Z12.4 Pap collected Vaginal discharge 095266 006 N89.8 Pelvic ward or dysfunction 406308441 M62.9 Polycystic ovaries 76390 008 E28.2 Family his tory of breast cancer 469579726 Z80.3 [id number] MD John [employer]ount [employer] [address] [place] [address] [place] [id number] 08/21/2019 10:53:04 08/21/2019 11:54:03 Cervical intraepithelial neoplasia grade III with severe dysplasia 893492017 D06.9 [id number] MD John Blount [employer] [address] [place] [address] [place] [address] 09/11/2019 14:52:56 09/11/2019 15:49:37 Cervical intraepithelial neoplasia grade III with severe dysplasia 693407247 D06.9 [id number] MD John Blount [employer] [address] [place] [address] [place] [id number] 09/25/2019 13:05:49 09/25/2019 13:21:20 History of loop electrosurgical excision procedure 8183116277 9102 Z98.890 Cervical intraepithelial neoplasia grade III with severe dysplasia 427495986 D06.9 [id number] MD John Blount [employer] [address] [place] [address] [place] [id number] 11/08/2019 15:58:57 11/08/2019 16:26:39 Mass of left breast 9865793634 7177151 N63.20 [id number] MD John Blount [employer] [address] [place] [address] [place] [address] 02/20/2020 15:34:15 02/20/2020 16:34:29 Cervical intraepithelial neoplasia grade III with severe dysplasia 785394632 D06.9 Acne 81818828 L70.9 [id number] Zainab Ch MD [employer] [address] [place] [address] [place] [id number] 06/18/2020 10:30:20 06/18/2020 11:34:32 Polycystic ovary syndrome 867937888 E28.2 Trying to conceive 74036 9001 Z31.9 History of loop electrosurgical excision procedure 0734066591 9102 Z98.426 [id number] MD John Blount [employer] [address] [place] [address] [place] [address] 09/29/2020 15:14:02 09/29/2020 16:25:12 Screening for malignant neoplasm of cervix 116216188 Z12.4 Pap collected Cervical intraepithelial neoplasia grade III with severe dysplasia 401011169 D06.9 Dyspareunia 58349701 N94 .10 Mass of left breast 1224 453265 2764522 N63.20 Family his tory of breast cancer 874400970 Z80.3 [id number] Miranda Pa APRN [address] [place] [id number] 10/01/2020 11:19:30 10/01/2020 12:03:02 Essential hypertension 65298842 I10 Advised to check BP daily at home. Follow-up in 1 month. Fatigue 18181652 R53.83 Migraine 50657083 G43.90 9 [id number] Miranda Pa APRN [address] [place] [address] 10/17/2020 08:06:55 10/17/2020 08:38:56 Essential hypertension 98740128 I10 Advised to check BP daily at home. Follow-up in 1 month. Migraine 38275074 G43.90 9 She has not used the sumatripta n yet, only Tylenol PRN. Body mass index 30+ - obesity 232523049 Z68.38 Hidradenit is suppurativa 45987851 L73.2 [id number] Miranda Pa APRN [address] [place] [address] 11/04/2020 08:18:10 11/04/2020 09:01:54 Migraine 86362445 G43.909 Dizziness 342584401 R42 Labs previously done at last visit were normal. Blurring o f visual image 580079156 H53.8 Neck pain 48361103 M54.2 [id number] Miranda Pa APRN [address] SARAN Sanchez [id number] 7 12/05/2020 08:15:03 12/05/2020 09:06:31 Edema of lower extremity [id number] R60.0 Resolved - advised on elevation of legs, adequate hydration, reduced sodium intakes, compressio n stockings PRN. F/U if worsens. Low back pain 729510628 M54.5 Thoracic back pain 87820 8004 M54.6 Migraine 64639653 G43.90 9 Advised to F/U with Neuro as scheduled. F/U in office needed before then. [id number] Miranda Pa APRN [address] [place] [address] 12/09/2020 13:55:58 12/09/2020 14:38:24 Body mass index 30+ - obesity 985316719 Z68.39 Chest pain 82930155 R07. 9 Labs performed previously . Will refer to Cardiology today. F/U in office if symptoms worsen, or go to ER for any chest pain lasting longer than 5 minutes or increased shortness of breath. Already had recent labs October 2020 - no need for additional labs today. Palpitations 72821707 R0 0.2 [id number] MD John [employer] [address] [place] [address] SARAN Sanchez [id number] 01/26/2021 13:12:53 01/26/2021 14:39:11 Abnormal cervical Papanicolaou smear 778005025 R87.619 Screening for malignant neoplasm of cervix 885349653 Z12.4 [id number] Zainab Ch MD [employer] [address] [place] [address] SARAN Sanchez [id number] 7 04/15/2021 08:58:03 04/15/2021 09:18:57 Abnormal cervical Papanicolaou smear 472264568 R87.619 Vaginal discharge 202702 006 N89.8 Dyspareunia 28225313 N94 .10 [id number] Corry Sears APRN [address] SARAN Sanchez [id number] 7 06/18/2021 09:38:21 06/18/2021 10:27:06 Abdominal pain 87301459 R10.9 Depression screening 171 144984 Z13.31 Gastroesop hageal reflux disease 676016181 K21.9 Chronic constipation 236 144106 K59.09 Abdominal bloating 56572 9008 R14.0 Nausea 451526496 R11.0 Body mass index 40+ - severely obese 514413052 Z68.41 [id number] Zainab Ch MD [employer] [address] [place] [address] SARAN Sanchez [id number] 7 08/12/2021 13:57:13 08/12/2021 14:45:12 Routine gynecologic examination done [id number] 9101 Z01.419 Depression screening 171 509772 Z13.89 PHQ 9 negative Diet education 12757558 Z71.3 Counseling 433703614 Z71 .82 Exercise counsellin g. Patient encouraged to exercise 30 minutes 5 days a week. Examinatio n of blood pressure 292410625 Z01.30 Normotensi ve Vaccine de clined by patient 1371067499 02 Z28.21 Obesity 247815848 E66.9 Screening for malignant neoplasm of cervix 076240435 Z12.4 Hidradenit is suppurativa 67641289 L73.2 [id number] Luis Mitchell MD [address] SARAN Sanchez [address] 09/10/2021 14:58:29 09/10/2021 15:35:57 Pharyngitis 699129210 J02.9 [id number] Araseli Mills APRN [employer] [address] [place] [address] SARAN Sanchez [id number] 7 09/24/2021 08:40:43 09/24/2021 09:34:52 Dysuria 27552824 R30.9 Chronic constipation 236 181030 K59.09 Body mass index 40+ - severely obese 616583987 Z68.41 [id number] Alis Mays DO [employer] [address] [place] [address] SARAN Sanchez [id number] 7 01/12/2022 14:23:40 01/12/2022 15:14:15 Irregular periods 73103394 N92.6 Sterilizat ion requested 037489140 Z30.2 Abnormal c ervical Papanicolaou smear 488796501 R87.619 Chronic in terstitial cystitis 810309263 N30.10 [id number] Zainab Ch MD [employer] [address] [place] [address] SARAN Sanchez [id number] 7 02/09/2022 13:00:30 02/09/2022 13:30:25 Pre-surgery evaluation 155901716 Z01.818 Sterilizat ion requested 845994851 Z30.2 Contracept ion care management 623163855 Z30.9 Condyloma acuminata of vulva 875272735 A63.0 [id number] MD John Blount [employer] [address] [place] [address] SARAN Sanchez [id number] 7 07/20/2022 16:00:19 07/20/2022 17:05:27 Routine gynecologic examination done 9670391528 9101 Z01.419 Depression screening 171 745482 Z13.89 PHQ 9 negative Examinatio n of blood pressure 984169334 Z01.30 Normotensi ve Body mass index 40+ - severely obese 555349276 Z68.41 Screening for malignant neoplasm of cervix 543343355 Z12.4 Vaginal pain 54896939 R1 0.2 Dyspareunia 56594287 N94 .10 Sebaceous cyst of skin 321572909 L72.3 [id number] MD John Blount [employer] 7 [facility] SARAN Sanchez [id number] 01/05/2023 13:55:12 01/05/2023 14:44:41 Venereal disease screening 695356716 Z11.3 Postcoital bleeding 4888 0000 N93.0 Abnormal u terine bleeding 3483805030 9100 N93.9 Health Concerns Section Related Observation LastModified by Organization Detai ls LastModified Time None Recorded Concern Status LastModified by Organization Details LastModified Time None Recorded Advance Directives Directive N: Payers Insurance Date Sequence Insurance Name Policy Number Policy Mai Covered Member ID Mai Member ID Guarantor Name 04/23/2023 [place] [id number] [place] Araceli Gill [place] [id number] Katy Gill [place] 01/12/2022 1 AETNA [facility] (MEDICAID HMO) Araceli [place] [id number] Katy Gill [place] 04/23/2023 1 AETNA [facility] (MEDICAID HMO) Araceli Gill [place] [id number] Fabyollie Gill [place] 08/21/2019 1 *SELF PAY* Faby Gill [place] 02/10/2022 1 [id number] Fabymarybessy Homero [place] [id number] Fabymarybessy Homero [place] Notes Date Note Type Note Provider Name and Address Organization Details Recorded Time 2 text/html DysuriaReported by PatientHPIFor quality, patient reportsburning,pressure, andpain. For severity, patient reportsworseningbut reportsmoderate. For timing, patient reportsworse. For duration, patient reportssymptoms lasting over 2 weeks. For modifying factors, patient reportsnothing gives relief.Katy presents today for ongoing s/s possible UTI. [...] dysuria, frequency, lots of pressure, cramping. Araseli Mills, TELEGRAPH REPEATER INSTALLER [address], [place], [address], [place] - [facility] 09/24/2021 10:25:12 2 text/html ROS as noted in the HPI Katy presents today for ongoing pelvic pain, [...] changes and OTC prelief. Alis Laygera [place], [place] - [facility] 01/12/2022 15:06:27 2 text/html ROS as noted in the HPI Hal is here for pre-op for laparoscopic [...] surgery. 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 She reports that she is in [...] Zainab Ch MD [address], [place], [address], [place] [facility] 07/29/2022 13:27:41 3 text/html ROS as noted in the HPI Brollie is here to discuss post-coital bleeding. She [...] Zainab Ch MD [address], [place], [address], [place] - [facility] 01/09/2023 16:33:00 OBGyn Episode Ob Episode Information Episode Created Date Number of Fetuses Patient Bloodtype Patient rh Status Prepregnancy Weight lbs Domestic Partner Domestic Partner Phone Father Name Engraving Plate Maker Status 01/31/20 18 1 CLOSED Fetus Data [...] Comments 5 Regional-Ep idural 40 false 17 [facility] [place] Discharge Information Feeding Method Contraceptive Method Maternal HG B and HCT Levels
--- OUTSIDE RECORDS SUMMARY | 2025-02-06 14:53 | XMS_ITS | Encounter Summary ---
Author Organization Healthcare Address [address] [place] [address] Care Team Providers Care Manager Of Care Name Role Phone Miranda Pa APRN Primary Care Provider + Encounter Details Date Type Department Care Team (Late st Contact Info) Description 01/22/2021 Community [facility] Community Practice [address] [place] [address] Miranda Pa APRN 7 [facility] [place] [address] Migraine without status migrainosus, not intractable, unspecified [...] Primary documented in this encounter Care Teams Manager Of Care Relationship Specialty Start Date End Date Miranda Pa APRN [address] [facility] [place] [address] PCP - General 11/28/20 documented as of this encounter
--- OUTSIDE RECORDS SUMMARY | 2025-02-06 14:53 | XMS_ITS | Clinical Summary ---
Author Organization Healthcare Address [address] [place] [address] Care Team Providers Care Assistant Merchandise Manager Name Role Phone Miranda Pa HAILEY Primary [...] Td or Tdap) 02/16/2016 02/15/2006, 08/07/1999, 1995 [id number] Vaccine (1 - 2023- season) 2024 [facility]-Cervical Cancer Screening 2025 [facility]-HPV/Cotest 2025 [facility]-Influenza Vaccine (#1) 2025 [facility]-Zoster Vaccines (1 [...] age to complete this topic Insurance AETNA [facility] MEDICAID Care Teams Assistant Merchandise Manager Relationship Specialty Start Date End Date Miranda Pa APRN [address] [place] [address] PCP - General 11/28/20
--- NOTE | 2025-02-06 15:00 | US_ITS ---
PROCEDURE: US OB FOLLOW UP CLINICAL INDICATION: Repeat cardiac views COMPARISON: US US TRANSVAGINAL from 10/10/2024 US US OB /MATERNAL DETAIL from 01/23/2025 FINDINGS: Transabdominal sonographic images of the pelvis were obtained. The following parameters are obtained: From her established due date she is 22weeks 0 days Viable fetus in the cephalic presentation with an anterior placenta grade 1. There appears to be a posterior accessory lobe. There does not appear to be any evidence of previa or Vasa previa on color-flow Doppler. The cervix measures 3.09 cm heart rate: 142bpm bpm. Amniotic fluid: Subjectively appears normal No obvious anomalies evident. profile seen, stomach, bladder, kidneys, three-vessel cord, four chamber heart appear normal. heart: LVOT, RVOT, three-vessel view four-chamber heart appear normal. IMPRESSION: 1. Viable fetus in the cephalic presentation with an anterior placenta grade 1. There is a posterior accessory lobe still seen. There is no evidence of Vasa previa. 2. The fluid subjectively appears within normal limits. 3. Limited anatomical scan appears normal. 4. Cardiac scan was seen and appears normal however the four-chamber views were still difficult to obtain due to position. However in the images available there appears to be a normal four-chamber heart. 5. Which suggest repeat scan at 28 weeks. We will want to look at the accessory placental lobe at that time as well. Dictated by: Giacomo Webster MD 02/07/2025 12:38 Giacomo Webster MD in OV 02/07/2025 12:38
== END 2025-02-06 23:59 | disposition home or self-care (01) ==
LOC: RAD 14:51
PROVIDERS: PCP Obstetrics & Gynecology; Visit Provider Obstetrics & Gynecology
DX: O26.892 Other specified pregnancy related conditions, second trimester (principal); R10.2 Pelvic and perineal pain; N94.9 Unspecified condition associated with female genital organs and menstrual cycle; Z3A.22 22 weeks gestation of pregnancy
CPT/HCPCS: 76816

== ENCOUNTER 2025-02-14 21:56 | Outpatient (CLI) | payer OTHER, SELFPAY ==
--- OUTSIDE RECORDS SUMMARY | 2025-02-14 21:59 | XMS_ITS | Encounter Summary ---
Author Organization Healthcare Address [address] [place] [address] Care Team Providers Care Knock Out Hand Name Role Phone Miranda Pa APRN Primary Care Provider + Encounter Details Date Type Department Care Team (Late st Contact Info) Description 01/22/2021 Community [facility] Community Practice [address] [place] [address] Miranda Pa APRN [address] [facility] [place] [address] Migraine without status migrainosus, not intractable, unspecified [...] Primary documented in this encounter Care Teams Knock Out Hand Relationship Specialty Start Date End Date Miranda Pa APRN [address] [facility] [place] [address] PCP - General 11/28/20 documented as of this encounter
--- OUTSIDE RECORDS SUMMARY | 2025-02-14 21:59 | XMS_ITS | Clinical Summary ---
Author Organization Healthcare Address [address] [place] [address] Care Team Providers Care Internet Merchant Name Role Phone Miranda Pa HAILEY Primary [...] Td or Tdap) 02/16/2016 02/15/2006, 08/07/1999, 1995 [id number] Vaccine (1 - 2023- season) 2024 [facility]-Cervical [...] age to complete this topic Insurance AETNA [facility] MEDICAID Care Teams Internet Merchant Relationship Specialty Start Date End Date Miranda Pa APRN [address] [facility] [place] [address] PCP - General 11/28/20
--- OUTSIDE RECORDS SUMMARY | 2025-02-14 21:59 | XMS_ITS | Clinical Summary ---
[facility] [address] [place] [address] Care Team Providers Care Employment Law Attorney Name Role Phone Krystina Feliz Primary Care Provider [phone] Allergies Active Allergy Reactions Criticality Noted Date [...] age to complete this topic Insurance AETNA [facility] Care Teams Employment Law Attorney Relationship Specialty Start Date End Date Krystina Feliz PA PCP - General Physician Speaking Unit Assembler 01/11/23
[2025-02-14 22:13] VITALS: BP 106/56; PULSE 89; RESP 18; TEMP 36.6; O2SAT 98; BMI 42.7
[2025-02-14] MEDS: IBUPROFEN 800 MG TABLET PO (22:35)
[2025-02-14] MEDS: LACTATED RINGERS 1000ML 1,000 ML 999 ML IV (22:35)
== END 2025-02-14 23:45 | disposition home or self-care (01) ==
LOC: OBOUT 21:58 → OB 21:59
PROVIDERS: Visit Provider Obstetrics & Gynecology
DX: Z34.82 Encounter for supervision of other normal pregnancy, second trimester (principal); R51.9 Headache, unspecified; Z3A.23 23 weeks gestation of pregnancy
CPT/HCPCS: 96360; 99212; G0463; J7120

== ENCOUNTER 2025-02-22 07:50 | Outpatient (CLI) | payer OTHER, SELFPAY ==
--- OUTSIDE RECORDS SUMMARY | 2025-02-22 07:51 | XMS_ITS | Clinical Summary ---
[facility] [address] [place] [address] Care Team Providers Care Sorting And Folding Supervisor Name Role Phone Krystina Feliz Primary Care Provider [phone] Allergies Active Allergy Reactions Criticality Noted Date [...] age to complete this topic Insurance AETNA [facility] Care Teams Sorting And Folding Supervisor Relationship Specialty Start Date End Date Krystina Feliz PA PCP - General Physician Enrobing Machine Operator 01/11/23
--- OUTSIDE RECORDS SUMMARY | 2025-02-22 07:51 | XMS_ITS | Encounter Summary ---
Author Organization Healthcare Address [address] [place] [address] Care Team Providers Care Medical Records Administrator Name Role Phone Miranda Pa APRN Primary Care Provider + Encounter Details Date Type Department Care Team (Late st Contact Info) Description 01/22/2021 Community [facility] Community Practice [address] [place] [address] Miranda Pa APRN 7 [facility] [place] [address] Migraine without status migrainosus, not intractable, unspecified [...] Primary documented in this encounter Care Teams Medical Records Administrator Relationship Specialty Start Date End Date Miranda Pa APRN [address] [facility] [place] [address] PCP - General 11/28/20 documented as of this encounter
--- OUTSIDE RECORDS SUMMARY | 2025-02-22 07:52 | XMS_ITS | Clinical Summary ---
Author Organization Healthcare Address [address] [place] [address] Care Team Providers Care Drain Tile Press Operator Name Role Phone Miranda Pa HAILEY Primary [...] Td or Tdap) 02/16/2016 02/15/2006, 08/07/1999, 1995 [id number] Vaccine (1 - 2023- season) 2024 [facility]-Cervical [...] age to complete this topic Insurance AETNA [facility] MEDICAID Care Teams Drain Tile Press Operator Relationship Specialty Start Date End Date Miranda Pa APRN [address] [facility] [place] [address] PCP - General 11/28/20
[2025-02-22 09:10] LABS: Hematocrit 34.0 % (37.0-47.0); Hemoglobin 11.3 g/dL (12.2-16.2); Immature Granulocytes % 0.6 %; Mean Corpuscular HGB Conc 33.2 g/dL (31.8-35.4); Mean Corpuscular Hemoglobin 30.1 pg (27.0-31.2); Mean Corpuscular Volume 90.7 fl (81-99); Nucleated Red Blood Cells % 0 %; Platelet Count 219 K/mm3 (142-424); Red Blood Count 3.75 M/mm3 (4.20-5.40); Red Cell Distribution Width-SD 44.3 fL; White Blood Count 8.6 K/mm3 (4.8-10.8)
[2025-02-22 09:38] LABS: Glucose 1 Hour 110 mg/dL (74-100)
[2025-02-22 14:31] LABS: RPR W/RFX Titers Nonreactive (Nonreactive)
== END 2025-02-22 23:59 | disposition home or self-care (01) ==
LOC: LAB 07:50
PROVIDERS: Visit Provider Obstetrics & Gynecology
DX: Z34.82 Encounter for supervision of other normal pregnancy, second trimester (principal)
CPT/HCPCS: 36415; 82947; 85025; 86592

== ENCOUNTER 2025-03-06 17:20 | Outpatient (CLI) | payer OTHER, SELFPAY ==
[2025-03-06 20:40] LABS: Coronavirus 19, PCR Not Detected (NotDetected); Influenza A, PCR Not Detected (NotDetected); Influenza B, PCR Not Detected (NotDetected)
--- OUTSIDE RECORDS SUMMARY | 2025-03-07 11:02 | XMS_ITS | Clinical Summary ---
[facility] [address] [place] [address] Care Team Providers Care Collection Card Clerk Name Role Phone Kyrstina Feliz Primary Care Provider [phone] Allergies Active Allergy Reactions Criticality Noted Date [...] age to complete this topic Insurance AETNA [facility] Care Teams Collection Card Clerk Relationship Specialty Start Date End Date Krystina Feliz PA PCP - General Physician Technical Stenographer 01/11/23
--- OUTSIDE RECORDS SUMMARY | 2025-03-07 11:02 | XMS_ITS | Encounter Summary ---
Author Organization Healthcare Address [address] [place] [address] Care Team Providers Care Seam Steamer Name Role Phone Miranda Pa APRN Primary Care Provider + Encounter Details Date Type Department Care Team (Late st Contact Info) Description 01/22/2021 Community [facility] Community Practice [address] [place] [address] Miranda Pa APRN [address] [facility] [place] [address] Migraine without status migrainosus, not intractable, unspecified [...] Primary documented in this encounter Care Teams Seam Steamer Relationship Specialty Start Date End Date Miranda Pa APRN [address] [facility] [place] [address] PCP - General 11/28/20 documented as of this encounter
--- OUTSIDE RECORDS SUMMARY | 2025-03-07 11:02 | XMS_ITS | Clinical Summary ---
Author Organization Healthcare Address [address] [place] [address] Care Team Providers Care Internet Sourcer Name Role Phone Miranda Pa HAILEY Primary [...] of 2 - 13+ 2-dose series) 01/29/2008 [facility]- SDOH Screenings 2013 [facility]-Adult SDOH Screenings 2013 [facility]-Pap Smear 01/29/2016 [facility]-DTaP,Tdap,and Td Vaccines (4 - Td or Tdap) 02/16/2016 02/15/2006, 08/07/1999, 1995 HPV Vaccines (1 - 3-dose SCDM series) 2022 [id number]-15 Vaccine (1 - 2023- season) 2024 [facility]-Cervical [...] [facility] MEDICAID Care Teams Internet Sourcer Relationship Specialty Start Date End Date Miranda Pa APRN [address] [facility] [place] [address] PCP - General 11/28/20
== END 2025-03-06 23:59 | disposition home or self-care (01) ==
LOC: LAB.DROPOF 03-07 10:56
PROVIDERS: PCP Nurse Practitioner Family; Visit Provider Nurse Practitioner Family
DX: J06.9 Acute upper respiratory infection, unspecified (principal)
CPT/HCPCS: 87631

== ENCOUNTER 2025-03-14 14:13 | Outpatient (CLI) | payer OTHER, SELFPAY ==
--- OUTSIDE RECORDS SUMMARY | 2025-03-14 14:19 | XMS_ITS | Encounter Summary ---
Author Organization Healthcare Address [address] [place] [address] Care Team Providers Care Centrifugal Casting Machine Tender Name Role Phone Miranda Pa APRN Primary Care Provider + Encounter Details Date Type Department Care Team (Late st Contact Info) Description 01/22/2021 Community [facility] Community Practice [address] [place] [address] Miranda Pa APRN [address] [facility] [place] [address] Migraine without status migrainosus, not intractable, unspecified [...] Primary documented in this encounter Care Teams Centrifugal Casting Machine Tender Relationship Specialty Start Date End Date Miranda Pa APRN [address] [facility] [place] [address] PCP - General 11/28/20 documented as of this encounter
--- OUTSIDE RECORDS SUMMARY | 2025-03-14 14:19 | XMS_ITS | Clinical Summary ---
[facility] [address] [place] [address] Care Team Providers Care Capacity Management Specialist Name Role Phone Krystina Feliz Primary Care Provider [phone] Allergies Active Allergy Reactions Criticality Noted Date [...] age to complete this topic Insurance AETNA [facility] Care Teams Capacity Management Specialist Relationship Specialty Start Date End Date Krystina Feliz PA PCP - General Physician Customer Counter Associate 01/11/23
--- OUTSIDE RECORDS SUMMARY | 2025-03-14 14:19 | XMS_ITS | Clinical Summary ---
Author Organization Healthcare Address [address] [place] [address] Care Team Providers Care Environmental Epidemiologist Name Role Phone Miranda Pa HAILEY Primary [...] Vaccines (1 - 3-dose SCDM series) 2022 [id number] Vaccine (1 - 2023- season) 2024 [facility]-Cervical [...] age to complete this topic Insurance AETNA [facility] MEDICAID Care Teams Environmental Epidemiologist Relationship Specialty Start Date End Date Miranda Pa APRN [address] [facility] [place] [address] PCP - General 11/28/20
[2025-03-14 14:32] VITALS: BMI 44.6
[2025-03-14] MEDS: LACTATED RINGERS 1000ML 1,000 ML 999 ML IV (15:01)
[2025-03-14] MEDS: ACETAMINOPHEN 500MG TAB 1000 MG PO (15:02)
[2025-03-14 15:14] LABS: Microscopic, Urine URINE MICROSCOPIC (MICROSCOPIC)
[2025-03-14 15:18] LABS: Bilirubin,Urine Negative (Negative); Color,Urine YELLOW (Yellow); Glucose,Urine (UA) Negative (Negative); Ketones,Urine Negative (Negative); Leukocyte Esterase,Urine Negative (Negative); PH,Urine 6.0 (5.0-8.5); Protein,Urine Negative (Negative); Specific Gravity, Urine >= 1.030 (1.005-1.030); Urobilinogen,Urine 0.2 EU/dl (0.2)
[2025-03-14 15:19] LABS: Hematocrit 32.6 % (37.0-47.0); Hemoglobin 11.1 g/dL (12.2-16.2); Immature Granulocytes % 0.5 %; Mean Corpuscular HGB Conc 34.0 g/dL (31.8-35.4); Mean Corpuscular Hemoglobin 30.2 pg (27.0-31.2); Mean Corpuscular Volume 88.8 fl (81-99); Nucleated Red Blood Cells % 0 %; Platelet Count 254 K/mm3 (142-424); Red Blood Count 3.67 M/mm3 (4.20-5.40); Red Cell Distribution Width-SD 44.3 fL; White Blood Count 10.4 K/mm3 (4.8-10.8)
[2025-03-14 15:21] VITALS: BP 109/69; PULSE 90; RESP 18; TEMP 36.7; O2SAT 97; BMI 44.6
[2025-03-14 15:23] LABS: Albumin Level 3.7 g/dl (3.5-5.0); Chloride 108 mmol/L (98-107); Sodium 137 mmol/L (136-145)
[2025-03-14 15:24] LABS: Potassium 3.8 mmoL/L (3.5-5.1)
[2025-03-14 15:26] LABS: Alanine Aminotransferase 24 U/L (12-78); Albumin/Globulin Ratio 1.1 (1.1-1.8); Alkaline Phosphatase 72 U/L (38-126); Anion Gap 9.8 mEq/L (5-15); Aspartate Amino Transferase 27 U/L (14-36); Bilirubin,Total 0.4 mg/dl (0.2-1.3); Blood Urea Nitrogen 10 mg/dl (7-17); Carbon Dioxide 23 mmol/L (22.0-30.0); Creatinine Clearance Estimated 128 mL/min (50-200); Creatinine,Serum 0.60 mg/dl (0.52-1.04); Estimated Glomerular Filt Rate 117 ml/min (>60); GFR (African American) 142 ML/MIN (>60); Globulin 3.4 g/dL (1.3-3.2); Total Protein,Serum 7.1 g/dl (6.3-8.2)
[2025-03-14 15:27] LABS: Calcium 9.4 mg/dl (8.4-10.2); Glucose 98 mg/dl (74-100)
[2025-03-14 15:37] LABS: Bacteria,Urine 2+ /lpf; RBC,Urine Occasional #/hpf (0-3)
== END 2025-03-14 16:35 | disposition home or self-care (01) ==
LOC: OBOUT 14:18 → OB 14:19
PROVIDERS: Visit Provider Obstetrics & Gynecology
DX: R82.71 Bacteriuria (principal)
CPT/HCPCS: 80053; 81001; 85025; 87086; 96360; 99212; G0463; J7120

== ENCOUNTER 2025-03-19 14:57 | Outpatient (CLI) | payer OTHER, SELFPAY ==
--- OUTSIDE RECORDS SUMMARY | 2025-03-19 14:59 | XMS_ITS | Clinical Summary ---
[facility] [address] [place] [address] Care Team Providers Care Commercial Management Accountant Name Role Phone Krystina Feliz Primary Care Provider [phone] Allergies Active Allergy Reactions Criticality Noted Date [...] age to complete this topic Insurance AETNA [facility] Care Teams Commercial Management Accountant Relationship Specialty Start Date End Date Krystina Feliz PA PCP - General Physician Legal Department Manager 01/11/23
--- OUTSIDE RECORDS SUMMARY | 2025-03-19 14:59 | XMS_ITS | Encounter Summary ---
Author Organization Healthcare Address [address] [place] [address] Care Team Providers Care Satellite Dish Repairer Name Role Phone Miranda Pa APRN Primary Care Provider + Encounter Details Date Type Department Care Team (Late st Contact Info) Description 01/22/2021 Community [facility] Community Practice [address] [place] [address] Miranda Pa APRN [address] [facility] [place] [address] Migraine without status migrainosus, not intractable, unspecified [...] Primary documented in this encounter Care Teams Satellite Dish Repairer Relationship Specialty Start Date End Date Miranda Pa APRN [address] [facility] [place] [address] PCP - General 11/28/20 documented as of this encounter
--- OUTSIDE RECORDS SUMMARY | 2025-03-19 14:59 | XMS_ITS | Clinical Summary ---
Author Organization Healthcare Address [address] [place] [address] Care Team Providers Care Senior Physician Name Role Phone Miranda Pa HAILEY Primary [...] Vaccines (1 - 3-dose SCDM series) 2022 [id number] Vaccine (1 - 2023- season) 2024 [facility]-Cervical [...] age to complete this topic Insurance AETNA [facility] MEDICAID Care Teams Senior Physician Relationship Specialty Start Date End Date Miranda Pa APRN [address] [facility] [place] [address] PCP - General 11/28/20
--- NOTE | 2025-03-19 15:00 | US_ITS ---
PROCEDURE: US OB FOLLOW UP CLINICAL INDICATION: accessory placental lobe and cardiac views COMPARISON: US US OB /MATERNAL DETAIL from 01/23/2025 US US OB FOLLOW UP from 02/06/2025 FINDINGS: Transabdominal sonographic images of the pelvis were obtained. The following parameters are obtained: From her established due date she is 27weeks 6days Viable fetus in the breech presentation with an anterior placenta grade 1. The placenta appears to be well away from the internal cervical os. There appears to be a posterior lobe but the building admin could not find a connection between these 2 parts of the placenta. The cervix measures 4.47 cm in length heart rate: 138bpm bpm. BPD: 31weeks 1day, >98 percentile HC: 30weeks 6days, 95 percentile AC: 29weeks 0 days, 75 percentile FL: 28weeks 1day, 43 percentile HC/AC: 1.14 FL/BPD: 0.68 FL/AC: 0.21 Growth percentile: 81 Amniotic fluid subjectively appears normal. No obvious anomalies evident. profile seen, stomach, bladder, kidneys, three-vessel cord, four chamber heart appear normal. IMPRESSION: 1. Viable fetus in the BREECH presentation with an anterior placenta grade 1. There continues to be an accessory lobe posteriorly but the connection between the 2 lobes could not be found today. No evidence of placenta previa today. 2. Subjectively the fluid appears to be within normal limits. 3. Limited anatomical scan appears normal. 4. Cardiac four-chamber view was seen today and appears normal. 5. There has been good interval growth with the fetus currently 81st percentile. The head appears to be 3 weeks ahead on its growth. 6. Suggest follow-up in 4 weeks to look at the placenta and accelerated growth. Dictated by: Giacomo Webster MD 03/19/2025 18:20 Giacomo Webster MD in OV 03/19/2025 18:20
== END 2025-03-19 23:59 | disposition home or self-care (01) ==
LOC: RAD 14:57
PROVIDERS: PCP Nurse Practitioner Family; Visit Provider Obstetrics & Gynecology
DX: O36.62X0 Maternal care for excessive fetal growth, second trimester, not applicable or unspecified (principal); O32.1XX0 Maternal care for breech presentation, not applicable or unspecified; O99.212 Obesity complicating pregnancy, second trimester; O99.891 Other specified diseases and conditions complicating pregnancy; O26.892 Other specified pregnancy related conditions, second trimester; E66.9 Obesity, unspecified; R10.2 Pelvic and perineal pain; R10.32 Left lower quadrant pain; R82.71 Bacteriuria; Z3A.27 27 weeks gestation of pregnancy
CPT/HCPCS: 76816

== ENCOUNTER 2025-03-27 09:48 | Outpatient (CLI) | payer OTHER, SELFPAY ==
--- OUTSIDE RECORDS SUMMARY | 2025-03-29 09:52 | XMS_ITS | Clinical Summary ---
Author Organization [facility] Address [address] [place] [address] Care Team Providers Care Water Pumping Station Engineer Name Role Phone Krystina Feliz Primary Care Provider [phone] Allergies Active Allergy Reactions Criticality Noted Date [...] 02/16/2016 006 COVID-19 Vaccine (2023-2 5 season) 2025 INFLUENZA VACCINE 04/17/2025 Pneumococcal Vaccine 0-49 Aged Out No longer eligible based on patient's age to complete this topic Insurance AETNA [facility] Care Teams Water Pumping Station Engineer Relationship Specialty Start Date End Date Krystina Feliz PA PCP - General Physician Retort Unloader 01/11/23
--- OUTSIDE RECORDS SUMMARY | 2025-03-29 09:52 | XMS_ITS | Clinical Summary ---
Author Organization Healthcare Address [address] [place] [address] Care Team Providers Care Virtualization Engineer Name Role Phone Miranda Pa HAILEY Primary [...] Vaccines (1 - 3-dose SCDM series) 2022 [facility]-Cervical Cancer Screening 2025 [facility]-HPV/Cotest 2025 [id number] Vaccine ( - season) 2025 [facility]-Influenza Vaccine (#1) 2025 [facility]-Zoster Vaccines [...] age to complete this topic Insurance AETNA [facility] MEDICAID Care Teams Virtualization Engineer Relationship Specialty Start Date End Date Miranda Pa APRN [address] [facility] [place] [address] PCP - General 11/28/20
--- OUTSIDE RECORDS SUMMARY | 2025-03-29 09:52 | XMS_ITS | Encounter Summary ---
Author Organization Healthcare Address [address] [place] [address] Care Team Providers Care Client Care Manager Name Role Phone Miranda Pa APRN Primary Care Provider + Encounter Details Date Type Department Care Team (Late st Contact Info) Description 01/22/2021 Community [facility] Community Practice [address] [place] [address] Miranda Pa APRN 7 [facility] [place] [address] Migraine without status migrainosus, not intractable, unspecified [...] Primary documented in this encounter Care Teams Client Care Manager Relationship Specialty Start Date End Date Miranda Pa APRN 7 [facility] [place] [facility] [place] [address] PCP - General 11/28/20 documented as of this encounter
== END 2025-03-27 23:59 ==
LOC: LAB.DROPOF 03-29 09:49
PROVIDERS: PCP Nurse Practitioner Family; Visit Provider Nurse Practitioner Obstetrics & Gynecology
DX: O20.9 Hemorrhage in early pregnancy, unspecified (principal); Z3A.00 Weeks of gestation of pregnancy not specified
CPT/HCPCS: 87086

== ENCOUNTER 2025-04-02 11:42 | Outpatient (CLI) | payer OTHER, SELFPAY ==
--- OUTSIDE RECORDS SUMMARY | 2025-04-03 10:45 | XMS_ITS | Encounter Summary ---
Author Organization Healthcare Address [address] [place] [address] Care Team Providers Care Mechanical System Technician Name Role Phone Miranda Pa APRN Primary Care Provider + Encounter Details Date Type Department Care Team (Late st Contact Info) Description 01/22/2021 Community [facility] Community Practice [address] [place] [address] Miranda Pa APRN 7 [facility] [place] [address] Migraine without status migrainosus, not intractable, unspecified [...] Primary documented in this encounter Care Teams Mechanical System Technician Relationship Specialty Start Date End Date Miranda Pa APRN 7 [facility] [place] [address] PCP - General 11/28/20 documented as of this encounter
--- OUTSIDE RECORDS SUMMARY | 2025-04-03 10:45 | XMS_ITS | Clinical Summary ---
Author Organization Healthcare Address [address] [place] [address] Care Team Providers Care Sample Taker Operator Name Role Phone Miranda Pa HAILEY [...] 2022 [facility]-Cervical Cancer Screening 2025 [facility]-HPV/Cotest 2025 [id number] Vaccine ( - season) 2025 [facility]-Influenza Vaccine [...] AETNA [facility] MEDICAID Care Teams Sample Taker Operator Relationship Specialty Start Date End Date Miranda Pa APRN 7 [facility] [place] [address] PCP - General 11/28/20
--- OUTSIDE RECORDS SUMMARY | 2025-04-03 10:45 | XMS_ITS | Clinical Summary ---
[facility] [address] [place] [address] Care Team Providers Care Billet Header Name Role Phone Krystina Felzi Primary Care Provider [phone] Allergies Active Allergy Reactions Criticality Noted Date [...] age to complete this topic Insurance AETNA [facility] Care Teams Billet Header Relationship Specialty Start Date End Date Krystina Feliz PA PCP - General Physician Paper Coating Machine Operator 01/11/23
== END 2025-04-02 23:59 | disposition home or self-care (01) ==
LOC: LAB.DROPOF 04-03 10:43
PROVIDERS: PCP Obstetrics & Gynecology; Visit Provider Obstetrics & Gynecology
DX: Z34.92 Encounter for supervision of normal pregnancy, unspecified, second trimester (principal); R51.9 Headache, unspecified; R06.02 Shortness of breath; Z3A.00 Weeks of gestation of pregnancy not specified
CPT/HCPCS: 87086

== ENCOUNTER 2025-04-03 11:48 | Outpatient (CLI) | payer OTHER, SELFPAY ==
--- OUTSIDE RECORDS SUMMARY | 2025-04-03 11:51 | XMS_ITS | Encounter Summary ---
Author Organization Healthcare Address [address] [place] [address] Care Team Providers Care Hobber Name Role Phone Miranda Pa APRN Primary Care Provider + Encounter Details Date Type Department Care Team (Late st Contact Info) Description 01/22/2021 Community [facility] Community Practice [address] [place] [address] Miranda Pa APRN 7 [facility] [place] [address] Migraine without status migrainosus, not intractable, unspecified [...] Primary documented in this encounter Care Teams Hobber Relationship Specialty Start Date End Date Miranda Pa APRN 7 [facility] [place] [address] PCP - General 11/28/20 documented as of this encounter
--- OUTSIDE RECORDS SUMMARY | 2025-04-03 11:51 | XMS_ITS | Clinical Summary ---
[facility] [address] [place] [address] Care Team Providers Care Injection Molder Name Role Phone Krystina Feliz Primary Care Provider [phone] Allergies Active Allergy Reactions Criticality Noted Date [...] age to complete this topic Insurance AETNA [facility] Care Teams Injection Molder Relationship Specialty Start Date End Date Krystina Feliz PA PCP - General Physician Tapper Bit 01/11/23
--- OUTSIDE RECORDS SUMMARY | 2025-04-03 11:51 | XMS_ITS | Clinical Summary ---
Author Organization Healthcare Address [address] [place] [address] Care Team Providers Care Computer Designer Name Role Phone Miranda Pa HAILEY Primary [...] 2022 [facility]-Cervical Cancer Screening 2025 [facility]-HPV/Cotest 2025 [id number] Vaccine ( - season) 2025 [facility]-Influenza Vaccine [...] to complete this topic Insurance AETNA [facility] MEDICAID Care Teams Computer Designer Relationship Specialty Start Date End Date Miranda Pa APRN 7 [facility] [place] [address] PCP - General 11/28/20
[2025-04-03 12:38] LABS: Chloride 106 mmol/L (98-107)
[2025-04-03 12:39] LABS: Albumin Level 3.6 g/dl (3.5-5.0); Potassium 4.2 mmoL/L (3.5-5.1); Sodium 134 mmol/L (136-145)
[2025-04-03 12:41] LABS: Blood Urea Nitrogen 8 mg/dl (7-17); Creatinine,Serum 0.60 mg/dl (0.52-1.04); Estimated Glomerular Filt Rate 117 ml/min (>60); GFR (African American) 142 ML/MIN (>60)
[2025-04-03 12:42] LABS: Alanine Aminotransferase 21 U/L (12-78); Albumin/Globulin Ratio 1.1 (1.1-1.8); Alkaline Phosphatase 71 U/L (38-126); Anion Gap 11.2 mEq/L (5-15); Aspartate Amino Transferase 29 U/L (14-36); Bilirubin,Total 0.5 mg/dl (0.2-1.3); Carbon Dioxide 21 mmol/L (22.0-30.0); Globulin 3.2 g/dL (1.3-3.2); Total Protein,Serum 6.8 g/dl (6.3-8.2)
[2025-04-03 12:43] LABS: Calcium 9.8 mg/dl (8.4-10.2); Glucose 86 mg/dl (74-100)
== END 2025-04-03 23:59 | disposition home or self-care (01) ==
LOC: LAB 11:49
PROVIDERS: Visit Provider Obstetrics & Gynecology
DX: Z34.92 Encounter for supervision of normal pregnancy, unspecified, second trimester (principal); Z3A.00 Weeks of gestation of pregnancy not specified
CPT/HCPCS: 36415; 80053; 82239

== ENCOUNTER 2025-04-09 13:27 | Outpatient (CLI) | payer OTHER, SELFPAY ==
--- NOTE | 2025-04-09 13:30 | US_ITS ---
PROCEDURE: US OB BIOPHYSICAL PROFILE CLINICAL INDICATION: Decreased movement, US ok'd by Dr Barrera COMPARISON: US US TRANSVAGINAL from 10/10/2024 US US OB /MATERNAL DETAIL from 01/23/2025 US US OB FOLLOW UP from 02/06/2025 US US OB FOLLOW UP from 03/19/2025 FINDINGS: Transabdominal sonographic images of the uterus were obtained. From her established due date she is 30weeks 6days. The following parameters are obtained: Viable Fetus in the breech presentation with posterior placenta grade 2. There appears to be an anterior accessory lobe. There does not appear to be any vasculature overlying the cervix when seen with Doppler flow.. The cervix measures 3.77 cm in length. Measurements: heart Rate = 123bpm Amniotic fluid index: 18.9cm, MVP 6.94 cm Qualitative AFV:2 Breathing movements: 2 Gross Body Movements: 2 Tone: 2 Biophysical profile score: 8 No obvious anomalies evident.Kidneys, profile, stomach, four-chamber heart, three-vessel cord appear normal. There is mild bilateral renal pelvis dilation measuring 5.6 mm and 4.8 mm IMPRESSION: 1. Viable fetus in the breech presentation with a posterior placenta grade 2. There appears to be an anterior accessory lobe as well. There does not appear to be any vasculature attaching these 2 placentas inferiorly near the cervix. 2. The fluid is within normal limits with an amniotic fluid index 18.9 cm, MVP 6.94 cm. 3. Biophysical profile is 8/8 with good breathing movement and movement seen. 4. There is mild bilateral renal pelvis dilation measuring 5.6 mm and 4.8 mm. 5. The rest of the limited anatomical scan appears normal. Dictated by: Giacomo Webster MD 04/09/2025 17:34 Giacomo Webster MD in OV 04/09/2025 17:34
--- OUTSIDE RECORDS SUMMARY | 2025-04-09 13:31 | XMS_ITS | Clinical Summary ---
Author Organization Healthcare Address [address] [place] [address] Care Team Providers Care Compressor Stations Superintendent Name Role Phone Miranda Pa HAILEY Primary [...] 2022 [facility]-Cervical Cancer Screening 2025 [facility]-HPV/Cotest 2025 [id number] Vaccine ( - season) 2025 [facility]-Influenza Vaccine [...] AETNA [facility] MEDICAID Care Teams Compressor Stations Superintendent Relationship Specialty Start Date End Date Miranda Pa APRN 7 [facility] [place] [address] PCP - General 11/28/20
--- OUTSIDE RECORDS SUMMARY | 2025-04-09 13:31 | XMS_ITS | Encounter Summary ---
Author Organization Healthcare Address [address] [place] [address] Care Team Providers Care Print Cutter Name Role Phone Miranda Pa APRN Primary Care Provider + Encounter Details Date Type Department Care Team (Late st Contact Info) Description 01/22/2021 Community [facility] Community Practice [address] [place] [address] Miranda Pa APRN 7 [facility] [address] Migraine without status migrainosus, not intractable, unspecified [...] Primary documented in this encounter Care Teams Print Cutter Relationship Specialty Start Date End Date Miranda Pa APRN 7 [facility] [place] [address] PCP - General 11/28/20 documented as of this encounter
--- OUTSIDE RECORDS SUMMARY | 2025-04-09 13:31 | XMS_ITS | Clinical Summary ---
[facility] [address] [place] [address] Care Team Providers Care Roof Slater Name Role Phone Krystina Feliz Primary Care Provider [phone] Allergies Active Allergy Reactions Criticality Noted Date [...] (2 - Td or Tdap) 02/16/2016 006 INFLUENZA VACCINE 02/15/2025 Pneumococcal Vaccine 0-49 Aged Out No longer eligible based on patient's age to complete this topic Insurance Care Teams Roof Slater Relationship Specialty Start Date End Date Krystina Feliz PA PCP - General Physician [employer] Sales [employer] Management 01/11/23
== END 2025-04-09 23:59 | disposition home or self-care (01) ==
LOC: RAD 13:28
PROVIDERS: PCP Obstetrics & Gynecology; Visit Provider Obstetrics & Gynecology
DX: O35.EXX0 Maternal care for other (suspected) fetal abnormality and damage, fetal genitourinary anomalies, not applicable or unspecified (principal); O43.893 Other placental disorders, third trimester; O32.1XX0 Maternal care for breech presentation, not applicable or unspecified; O36.8130 Decreased fetal movements, third trimester, not applicable or unspecified; Z3A.30 30 weeks gestation of pregnancy
CPT/HCPCS: 76819

== ENCOUNTER 2025-04-12 12:20 | Outpatient (CLI) | payer OTHER, SELFPAY ==
[2025-04-12 16:15] LABS: Coronavirus 19, PCR Not Detected (NotDetected); Influenza A, PCR Not Detected (NotDetected); Influenza B, PCR Not Detected (NotDetected)
--- OUTSIDE RECORDS SUMMARY | 2025-04-15 11:06 | XMS_ITS | Clinical Summary ---
[facility] [address] [place] [address] Care Team Providers Care Union Carpenter Name Role Phone Provider, No Known Primary Care Provider Unavail able Allergies Active Allergy Reactions Criticality Noted Date [...] file Preferred Language Not on file 04/28/2023 Estimated Date of Delivery Comme nts Yes 06/12/2025 Sex and Gender Information Value Date Recorded [...] 01/11/2023 10:24 AM EDT Plan of Treatment Upcoming Encounters Date Type Department Care Team (Late st Contact Info) Description 04/18/2025 9:00 AM EDT Office Visit [facility] MAT[facility]ICINE [address] [facility] [address] [place] [address] 04/18/2025 9:00 AM EDT Appointment [facility] US PER [facility] [address] [place] [address] Health Maintenance Due Date Last Done Comments Annual Gynecologic Pelvic an d Breast Exam 1995 PAP SMEAR 01/29/2016 TDAP/TD VACCINES (2 - Td or Tdap) 02/16/2016 006 INFLUENZA VACCINE 02/15/2025 ANNUAL PHYSICAL 04/10/2025 HEPATITIS C SCREENING 04/10/2025 RSV Vaccine - Adults (1 - Ri sk 1-dose series) 04/17/2025 Pneumococcal Vaccine 0-49 Aged Out No longer eligible based on patient's age to complete [place] [address] AETNA [facility] UMR Care Teams Union Carpenter Relationship Specialty Start Date End Date Provider, No Known [facility] [place] [address] PCP - General 04/10/25
== END 2025-04-12 23:59 ==
LOC: LAB.DROPOF 04-15 10:59
PROVIDERS: PCP Nurse Practitioner; Visit Provider Nurse Practitioner
DX: J06.9 Acute upper respiratory infection, unspecified (principal); J02.9 Acute pharyngitis, unspecified
CPT/HCPCS: 87631

== ENCOUNTER 2025-04-16 07:58 | Outpatient (CLI) | payer OTHER, SELFPAY ==
--- NOTE | 2025-04-16 08:00 | US_ITS ---
PROCEDURE: US OB FOLLOW UP CLINICAL INDICATION: BPP, growth, placenta views COMPARISON: US US OB /MATERNAL DETAIL from 01/23/2025 US US OB FOLLOW UP from 02/06/2025 US US OB FOLLOW UP from 03/19/2025 US US OB BIOPHYSICAL PROFILE from 04/09/2025 FINDINGS: Transabdominal sonographic images of the pelvis were obtained. The following parameters are obtained: From her established due date she is 31weeks 6days Viable fetus in the cephalic presentation with a posterior placenta grade 2 with an anterior accessory placental also grade 2. The cervix measures 3.1 cm heart rate: 123bpm bpm. Average ultrasound age 34 weeks 0 days Estimated weight 2049 grams, 4 lb 8 oz BPD: 35weeks 5days, >98 percentile HC: 35weeks 2days, 93 percentile AC: 32weeks 1day, 55 percentile FL: 32weeks 3days, 51 percentile HC/AC: 1.12 FL/BPD: 0.71 FL/AC: 0.22 Growth percentile: 70 Amniotic fluid index: 19.21cm, MVP 6.83 cm No obvious anomalies evident. Stomach, bladder, kidneys, three-vessel cord, four chamber heart appear normal. IMPRESSION: 1. Viable fetus in the cephalic presentation with a posterior placenta grade 2. There is an anterior accessory placental lobe also grade 2. 2. Fluid is within normal limits with an amniotic fluid index 19.21 cm, MVP 6.83 cm. 3. There has been good interval growth with the fetus currently 70th percentile. The BPD continues to be 4 weeks ahead. 4. Limited anatomical scan appears normal. Dictated by: Giacomo Webster MD 04/16/2025 10:51 Giacomo Webster MD in OV 04/16/2025 10:51
--- OUTSIDE RECORDS SUMMARY | 2025-04-16 08:01 | XMS_ITS | Clinical Summary ---
Author Organization Healthcare Address [address] [place] [address] Care Team Providers Care Driver Wheelchair Name Role Phone Miranda Pa HAILEY Primary [...] 2022 [facility]-Cervical Cancer Screening 2025 [facility]-HPV/Cotest 2025 [id number] Vaccine ( - season) 2025 [facility]-Influenza Vaccine [...] topic Insurance AETNA [facility] MEDICAID Care Teams Driver Wheelchair Relationship Specialty Start Date End Date Miranda Pa APRN 7 [facility] [place] [address] PCP - General 11/28/20
--- OUTSIDE RECORDS SUMMARY | 2025-04-16 08:01 | XMS_ITS | Encounter Summary ---
Author Organization Healthcare Address [address] [place] [address] Care Team Providers Care Postmaster Relief Name Role Phone Miranda Pa APRN Primary Care Provider + Encounter Details Date Type Department Care Team (Late st Contact Info) Description 01/22/2021 Community [facility] Community Practice [address] [place] [address] Miranda Pa APRN 7 [facility] [place] [address] Migraine without status migrainosus, not intractable, unspecified [...] Primary documented in this encounter Care Teams Postmaster Relief Relationship Specialty Start Date End Date Miranda Pa APRN 7 [facility] [place] [address] PCP - General 11/28/20 documented as of this encounter
--- OUTSIDE RECORDS SUMMARY | 2025-04-16 08:01 | XMS_ITS | Clinical Summary ---
[facility] [address] [place] [address] Care Team Providers Care Business Analysis Analyst Name Role Phone Provider, No Known Primary [...] Description 04/18/2025 9:00 AM EDT Office Visit [facility] MAT[facility]NAL MEDICINE [address] [facility] [address] [place] [address] 04/18/2025 9:00 AM EDT Appointment [facility] US PER DIAG [facility] [address] [place] [address] Health Maintenance Due Date Last Done Comments [...] [place] [address] AETNA [facility] UMR Care Teams Business Analysis Analyst Relationship Specialty Start Date End Date Provider, No Known [facility] [address] PCP - General 04/10/25
== END 2025-04-16 23:59 | disposition home or self-care (01) ==
LOC: RAD 07:59
PROVIDERS: PCP Obstetrics & Gynecology; Visit Provider Obstetrics & Gynecology
DX: O36.63X0 Maternal care for excessive fetal growth, third trimester, not applicable or unspecified (principal); O99.213 Obesity complicating pregnancy, third trimester; O26.893 Other specified pregnancy related conditions, third trimester; E66.9 Obesity, unspecified; R10.2 Pelvic and perineal pain; R10.32 Left lower quadrant pain; Z3A.31 31 weeks gestation of pregnancy
CPT/HCPCS: 76816

== ENCOUNTER 2025-04-23 11:56 | Outpatient (CLI) | payer OTHER, SELFPAY ==
--- OUTSIDE RECORDS SUMMARY | 2025-04-18 08:46 | XMS_ITS | Encounter Summary ---
[facility] Address [address] [place] [address] Care Team Providers Care Cafeteria Manager Name Role Phone Provider, No Known Primary Care Provider Unavail able Reason for Referral * Diagnostic Imaging (Routine) - Closed Specialty Diagnoses / Procedures Referred By Contac t Referred To Contact Radiology Diagnoses Placenta, abnormal, third trimester Large head , unspecified gestational age Procedures [facility] Diagnostic [place] Marina Barrera DO [address] [place] [address] Phone: tel: fax: [facility] US PER DIAG [facility] [address] [place] [address] Phone: tel: Referral ID Status Reason Start Date Expiration Date Visits Re quested Visits Authorized [id number] Closed 04/10/2025 07/10/2026 1 1 Reason for Visit * Diagnostic Imaging (Routine) - Closed Specialty Diagnoses / Procedures Referred By Contac t Referred To Contact Radiology Diagnoses Placenta, abnormal, third trimester Large head , unspecified gestational age Procedures [facility] Diagnostic [place] Marina Barrera DO [address] [place] [address] Phone: tel: fax: [facility] US PER DIAG [facility] [address] [place] [address] Phone: tel: Referral ID Status Reason Start Date Expiration Date Visits Re quested Visits Authorized [id number] Closed 04/10/2025 07/10/2026 1 1 Encounter Details Date Type Department Care Team (Latest Contact Info) Description 04/18/2025 8:46 AM EDT - 04/18/2025 11:59 PM EDT Hospital Encounter [facility] PER DIAG CTR [address] [place] [address] Marina Barrera, [address] [facility] [address] [place] [address] Placenta, abnormal, third trimester; Large [...] this encounter Medications at Time of Discharge metroNIDAZOLE (METROGEL) 0.75 % vaginal gel Insert 1 Applicatorful into the vagina As Needed. 01/14/2025 miconazole (MONISTAT 1 COMBINATION PACK) 1200 & 2 MG & % kit Insert 1 each into the vagina As Needed. 04/17/2025 Vit-Fe Fumarate-FA (GNP ) 28-0.8 MG tablet Take 1 tablet by mouth Daily. 03/20/2025 MAGNESIUM GLYCINATE PO Take 400 mg by mouth 2 (Two) Times a Day. documented as of this encounter Plan of Treatment Not on file documented as of this encounter Procedures Procedure Name Priority Date/Time Associated Diagnosis Comments [facility] Routine 04/18/2025 9:59 AM EDT Placenta, abnormal, third trimester Large head , unspecified gestational age documented in this encounter Results * [facility] (04/18/2025 9:59 AM EDT) Anatomical Region Laterality Modality Ultrasound 04/18/2025 9:16 AM EDT Narrative 04/18/2025 10:05 AM EDT PAT NAME: ARACELI RIOS MED REC#: [id number] DA: [id number] PAT GEND: F PAT TYPE: O EXAM JONATHAN: [id number] REF PHYS MARINA BARRERA Comparison Studies There [...] EFW (oz) 3 oz EFW by: Hadlock (FWS-FJ-ML-FL) Extended Tibia 54.2 mm 32w 0d 51% Martine Fibula 52.3 mm 32w 1d 50% Martine Foot 63.3 mm 29% Chitty Radius 46.3 mm 33w 2d 58% Martine Ulna 51.8 mm 32w 5d 45% Martine Cav. septi pel. tr 7.8 mm Adjunct Professor Of [employer] 6.8 mm CM 5.6 mm 10% Nicolaides [...] normal IVC: normal 3-vessel view: Appears normal 6-ntgqhx-qfsabek view: Appears normal Rt lung: Appears normal [...] growth assessment (your office) Further ultrasounds/consultation at [facility] at your discretion Coding ======= Description: 07748-22 Detailed Ultrasound Description: 43406-71 BPP without NST Juvenile Probation Officer: Eneida Akers RDMS Physician: Dominguez Deleon MD Electronically signed by: Dominguez Deleon MD at: 10:05 Procedure Note Dominguez Deleon MD - 04/18/2025 PAT NAME: ARACELI RIOS MED REC#: [id number] DA: [id number] PAT GEND: F PAT TYPE: O EXAM JONATHAN: [id number] REF PHYS MARINA BARRERA Comparison Studies There are no relevant prior studies to which this study is beingcompared Patient Status Outpatient Indication ======== 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 View: Adequate view ========= Dorman . Number of fetuses: 1 Dating ====== Method of dating:based on stated ANICETO GA by prior steyzaztdx67 w + 1 d ANICETO by prior assessment:06/12/2025 Ultrasound examination on:04/18/2025 GA by U/S based upon:AC, BPD, Femur, HC GA by U/S34 w + 5 d ANICETO by U/S:05/25/2025 Assigned:based on stated ANICETO, selected on 04/18/2025 Assigned GA32 w + 1 d Assigned ANICETO:06/12/2025 fzuynp650 d Biometry Standard BPD90.0 mm 36w 3d >99% Hadlock ZYM906.5 mm 36w 2d >99% Martine HC315.9 mm 35w 3d 92% Hadlock Cerebellum tr42.6 mm 33w 3d 70% Hill AC299.0 mm 33w 6d 91% Hadlock Femur64.5 mm 33w 2d 69% Hadlock Okzlqku06.8 mm 31w 2d 29% Martine HC / AC1.06 EFW2,353 g 33w 6d 92% Hadlock EFW (lb)5 lb EFW (oz)3 oz EFW by:Hadlock (GDD-[id number]-FL) Extended Tibia54.2 mm 32w 0d 51% Martine Aaoieo91.3 mm 32w 1d 50% Martine Foot63.3 mm 29% Chitty Yldlwt46.3 mm 33w 2d 58% Martine Ulna51.8 mm 32w 5d 45% Martine Cav. septi pel. tr7.8 mm Vp6.8 mm CM5.6 mm 10% Nicolaides Nasal bone11.6 mm Rt Renal pelvis ap6.9 mm Lt Renal pelvis ap7.7 mm Head / Face / Neck Cephalic index0.82 75% Nicolaides Extremities / Bony Struc FL / BPD0.72 FL / HC0.20 FL / AC0.22 Other Structures ZKO372 bpm General Evaluation Cardiac activity present. FHR [...] view:Appears normal SVC:normal IVC:normal 3-vessel view:Appears normal 5-zehoiy-cmavrbu view:Appears normal Rt lung:Appears normal Lt lung:normal [...] Consultation / Office Visit Type: Consultation See [facility] for full consult note. 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
--- OUTSIDE RECORDS SUMMARY | 2025-04-18 09:00 | XMS_ITS | Encounter Summary ---
[facility] Organization [facility] Address [address] [place] [address] Care Team Providers Care Board Winder Name Role Phone Provider, No Known Primary Care Provider Unavail able Reason for Visit * Reason Comments Anterior accessory lobe of placenta, lar ge head Encounter Details Date Type Department Care Team (Late st Contact Info) Description 04/18/2025 9:00 AM EDT Office Visit [facility] MATERNAL MEDICINE [address] [place], [place] [phone] Dominguez Deleon MD [address] [facility] [address] [place] [phone] hydronephrosis during , antepartum, single or unspecified [...] [facility] Dominguez Deleon MD, FACOG Maternal Medicine, [facility] documented in this encounter Plan of Treatment Not on file documented as of this encounter Visit Diagnoses Diagnosis hydronephrosis during , antepartum, single or unspecified fetus- Primary Suspected problem with placenta not found Suspected placental problem not found Vapes nicotine containing substance documented in this encounter Care Teams Board Winder Relationship Specialty Start Date End Date Provider, [place] [address] PCP - General 04/10/25 documented as of this encounter
--- OUTSIDE RECORDS SUMMARY | 2025-04-23 11:59 | XMS_ITS | Clinical Summary ---
Author Organization [facility] Address [address] [place] [address] Care Team Providers Care Outreach Counselor Name Role Phone Miranda Pa HAILEY Primary [...] 2022 [facility]-Cervical Cancer Screening 2025 [facility]-HPV/Cotest 2025 EIS-ZTRQM-43 Vaccine ( - season) 2025 [facility]-Influenza Vaccine [...] age to complete this topic Insurance [employer] [facility] MEDICAID Care Teams Outreach Counselor Relationship Specialty Start Date End Date Miranda Pa APRN [address] [facility] [place] [address] [place] [address] PCP - General 11/28/20
--- OUTSIDE RECORDS SUMMARY | 2025-04-23 11:59 | XMS_ITS | Encounter Summary ---
Author Organization [facility] Address [address] [place] [address] Care Team Providers Care Telephone Operator Chief Name Role Phone Miranda Pa APRN Primary Care Provider + Encounter Details Date Type Department Care Team (Late st Contact Info) Description 01/22/2021 Community [facility] [address] [place] [address] Miranda Pa APRN [address] [facility] [place] [address] Migraine without status migrainosus, not intractable, unspecified [...] Primary documented in this encounter Care Teams Telephone Operator Chief Relationship Specialty Start Date End Date Miranda Pa APRN [address] [facility] [place] [address] PCP - General 11/28/20 documented as of this encounter
--- OUTSIDE RECORDS SUMMARY | 2025-04-23 12:00 | XMS_ITS | Clinical Summary ---
Author Organization [facility] Address [address] [place] [address] Care Team Providers Care At Risk Specialist Name Role Phone Provider, No Known Primary Care Provider Unavail able Allergies Active Allergy Reactions Criticality Noted Date Comments Prochlorperazine Edisylate Other (See Comments) Medium 04/18/2025 Hot flashes, panic attacks Metoclopramide Hives Low 01/11/2023 Medications metroNIDAZOLE (METROGEL) 0.75 % vaginal gel Insert 1 Applicatorful into the vagina As Needed. 01/15/20 25 Active miconazole (MONISTAT 1 COMBINATION PACK) 1200 & 2 MG & % kit Insert 1 each into the vagina As Needed. 04/17/20 25 Active Vit-Fe Fumarate-FA (GNP ) 28-0.8 MG tablet Take 1 tablet by mouth Daily. 03/20/20 25 Active MAGNESIUM GLYCINATE PO Take 400 mg by mouth 2 (Two) Times a Day. Active naproxen (NAPROSYN) 500 MG tablet Take 1 tablet by mouth 2 (Two) Times a Day As Needed for Mild Pain. 20 tablet 01/12/20 23 025 Discontin ued(*Ther apy completed ) Active Problems Problem Noted Date Diagnosed Date Vapes nicotine containing substance 04/18/2025 Suspected problem with placenta not found 2024 Assessment & Plan (04/18/2025 9:58 AM EDT): - Presents today for suspected succenturiate lobe [...] any vasculature in the lower uterine segment; our US today confirms that, but is limited given gestational age and lie (cephalic) Recommendations: - Follow up growth assessment in 4 weeks (your office) ~36 weeks hydronephrosis during , antepartu m 04/18/2025 Assessment & Plan (04/18/2025 10:02 AM EDT): - Prior ultrasounds with concern for bilateral [...] or dilation <7 mm, no further intervention is needed Estimated Date of Delivery Comme nts Yes 06/12/2025 Date entered lydia or to episode creation Resolved Problems Problem Noted Date Diagnosed Date Resolved Date anomaly suspected but not found 04/18/2025 04/18/2025 Encounters Date Type Department Care Team Description 04/18/2025 9:00 AM EDT Office Visit [facility]ERNAL MEDICINE [address] [facility] [address] [place] [address] Dominguez Deleon MD hydronephrosis during , antepartum, single or unspecified fetus (Primary Dx); Suspected problem with placenta not found; Vapes nicotine containing substance 04/18/2025 8:46 AM EDT - 04/18/2025 11:59 PM EDT Hospital Encounter [facility] US PER DI[facility] [address] [place] [address] Marina Barrera DO Placenta, abnormal, third trimester; Large head; , unspecified gestational age Discharge Disposition: Home or Self Care 04/18/2025 Travel from Last 3 Months Social History Tobacco Use Types Packs/Day Years [...] Pressure 108/67 04/18/2025 9:12 AM EDT Pulse 70 01/11/2023 1:03 PM EDT Temperature 36.6 C (97.9 F) 01/11/2023 10:24 AM EDT Respiratory Rate 16 01/11/2023 1:03 PM EDT Oxygen Saturation 99% 01/11/2023 1:03 PM EDT Inhaled Oxygen Concentration - - Weight 130 kg (285 lb 9.6 oz) 04/18/2025 9:12 AM EDT Height 167.6 cm (5' 6 ) 01/11/2023 10:24 AM EDT Body Mass Index 46.1 01/11/2023 10:24 AM EDT Plan of Treatment Health Maintenance Due Date Last Done Comments Annual Gynecologic Pelvic an d Breast Exam 1995 PAP SMEAR 01/29/2016 INFLUENZA VACCINE 02/15/2025 ANNUAL PHYSICAL 04/10/2025 HEPATITIS C SCREENING 04/10/2025 RSV Vaccine - Adults (1 - Risk 1-dose series) 04/17/2025 TDAP/TD VACCINES (3 - Td or Tdap) 04/02/2035 04/02/2025, 02/15/2006 Pneumococcal Vaccine 0-49 Aged Out No longer eligible based on patient's age to complete this topic Procedures Procedure Name Priority Date/Time Associated Diagnosis Comments [facility] Routine 04/18/2025 9:59 AM EDT Placenta, abnormal, third trimester Large head , unspecified gestational age from Last 3 Months Results * [facility] (04/18/2025 9:59 AM EDT) Anatomical Region Laterality Modality Ultrasound 04/18/2025 9:16 AM EDT Narrative 04/18/2025 10:05 AM EDT PAT NAME: ARACELI RIOS [facility] REC#: [id number] DA: [id number] PAT GEND: F PAT TYPE: O EXAM JONATHAN: [id number] REF PHYS CLOVISRADHAMARINA Comparison Studies There are no relevant prior [...] EFW (oz) 3 oz EFW by: Hadlock ([id number]-[id number]-FL) Extended Tibia 54.2 mm 32w 0d 51% Martine Fibula 52.3 mm 32w 1d 50% Martine Foot 63.3 mm 29% Chitty Radius 46.3 mm 33w 2d 58% Martine Ulna 51.8 mm 32w 5d 45% Martine Cav. septi pel. tr 7.8 mm Braided Rug Maker 6.8 mm CM 5.6 mm 10% Nicolaides [...] normal IVC: normal 3-vessel view: Appears normal 2-wtjuwd-kpnnniw view: Appears normal Rt lung: Appears normal [...] growth assessment (your office) Further ultrasounds/consultation at [facility] at your discretion Coding ======= Description: 45485-87 Detailed Ultrasound Description: 75830-61 BPP without NST Human Resources Coordinator: Eneida Akers RDMS Physician: Dominguez Deleon MD Electronically signed by: Dominguez Deleon MD at: 10:05 Procedure Note Dominguez Deleon MD - 04/18/2025 PAT NAME: ARACELI RIOS MED REC#: [id number] DA: 1995 PAT GEND: F PAT TYPE: O EXAM JONATHAN: [id number] REF PHYS MARINA [place] Comparison Studies There are no relevant prior studies to which this study is beingcompared Patient Status Outpatient Indication ======== Concern for accessory lobe, Large head, [place] Maternal Assessment Nlmhix175 cm Height (ft)5 ft Height (in)6 in Jembxq752 kg Weight (lb)287 lb BMI46.61 kg/m Method ======= Transabdominal ultrasound examination. View: Adequate view ========= Dorman . Number of fetuses: 1 Dating ====== Method of dating:based on stated ANICETO GA by prior [id number] w + 1 d ANICETO by prior assessment:06/12/2025 Ultrasound examination on:04/18/2025 GA by U/S based upon:AC, BPD, Femur, HC GA by U/S34 w + 5 d ANICETO by U/S:05/25/2025 Assigned:based on stated ANICETO, selected on 04/18/2025 Assigned GA32 w + 1 d Assigned ANICETO:06/12/2025 [id number] d Biometry Standard BPD90.0 mm 36w 3d >99% Hadlock YTF925.5 mm 36w 2d >99% Martine HC315.9 mm 35w 3d 92% Hadlock Cerebellum tr42.6 mm 33w 3d 70% Hill AC299.0 mm 33w 6d 91% Hadlock Femur64.5 mm 33w 2d 69% Hadlock Cewhzej29.8 mm 31w 2d 29% Martine HC / AC1.06 EFW2,353 g 33w 6d 92% Hadlock EFW (lb)5 lb EFW (oz)3 oz EFW by:Hadlock (KXN-UG-AL-FL) Extended Tibia54.2 mm 32w 0d 51% Martine Ewnxzr03.3 mm 32w 1d 50% Martine Foot63.3 mm 29% Chitty Olwojo51.3 mm 33w 2d 58% Martine Ulna51.8 mm 32w 5d 45% Martine Cav. septi pel. tr7.8 mm Vp6.8 mm CM5.6 mm 10% Nicolaides Nasal bone11.6 mm Rt Renal pelvis ap6.9 mm Lt Renal pelvis ap7.7 mm Head / Face / Neck Cephalic index0.82 75% Nicolaides Extremities / Bony Struc FL / BPD0.72 FL / HC0.20 FL / AC0.22 Other Structures OFX296 bpm General Evaluation Cardiac activity present. FHR [...] view:Appears normal SVC:normal IVC:normal 3-vessel view:Appears normal 9-ujliaq-siojppf view:Appears normal Rt lung:Appears normal Lt lung:normal [...] Structures Uterus / Cervix Cervix:Visualized Approach:Transabdominal Cervical iktfdl91.5 mm Ovaries / Tubes / Adnexa Rt ovary:Visualized Lt ovary:Visualized Consultation / Office Visit Type: Consultation See [facility] for full consult note. Impression [...] growth assessment (your office) Further ultrasounds/consultation at [facility] at your discretion Coding ======= Description:92149-20 Detailed Ultrasound Description:06613-97 BPP without NST Human Resources Coordinator: Eneida Akers RDMS Physician: Dominguez Deleon MD Electronically signed by: Dominguez Deleon MD at: 10:05 us Marina Laurenradha DO IMG US ORDERABLES Final Result from Last [address] [place] [address] [place] [address] [facility] Care Teams At Risk Specialist Relationship Specialty Start Date End Date Provider, [place] [address] PCP - General 04/10/25
--- OUTSIDE RECORDS SUMMARY | 2025-04-23 12:00 | XMS_ITS | Encounter Summary ---
Author Organization [facility] Address [address] [place] [address] Care Team Providers Care Geological Sample Tester Name Role Phone Provider, No Known Primary Care Provider Unavail able Encounter Details Date Type Department Care Team (Latest Contact Info) Description 04/18/2025 Travel Social History Tobacco Use Types Packs/Day Years [...] documented as of this encounter Visit Diagnoses Not on filedocumented in this encounter Care Teams Geological Sample Tester Relationship Specialty Start Date End Date Provider, No Known [facility] [place] [address] PCP - General 04/10/25 documented as of this encounter
[2025-04-23 12:12] VITALS: BMI 46.0
[2025-04-23] MEDS: LACTATED RINGERS 1000ML 1,000 ML 999 ML IV (12:13)
[2025-04-23 13:07] VITALS: BP 118/71; PULSE 88; RESP 17; TEMP 37.1; O2SAT 97
[2025-04-23 13:15] VITALS: BP 120/78; PULSE 87; RESP 17; TEMP 37.1; O2SAT 97
== END 2025-04-23 13:15 | disposition home or self-care (01) ==
LOC: OBOUT 11:57 → OB 12:24 → INF 12:54
PROVIDERS: Visit Provider Nurse Practitioner Obstetrics & Gynecology
DX: Z01.89 Encounter for other specified special examinations (principal)
CPT/HCPCS: 96360; J7120

== ENCOUNTER 2025-05-13 10:59 | Outpatient (CLI) | payer OTHER, SELFPAY ==
--- OUTSIDE RECORDS SUMMARY | 2025-04-18 08:46 | XMS_ITS | Encounter Summary ---
[facility] Address [address] [place] [address] Care Team Providers Care Science Instructor Name Role Phone Provider, No Known Primary Care Provider Unavail able Reason for Referral * Diagnostic Imaging (Routine) - Closed Specialty Diagnoses / Procedures Referred By Contac t Referred To Contact Radiology Diagnoses Placenta, abnormal, third trimester Large head , unspecified gestational age Procedures [facility] Diagnostic [place] Marina Barrera DO [address] [place] [address] Phone: tel: fax: [facility] US PER DIAG CTR [address] [place] [address] Phone: tel: Referral ID Status Reason Start Date Expiration Date Visits Re quested Visits Authorized [id number] Closed 04/10/2025 07/10/2026 1 1 Reason for Visit * Diagnostic Imaging (Routine) - Closed Specialty Diagnoses / Procedures Referred By Contac t Referred To Contact Radiology Diagnoses Placenta, abnormal, third trimester Large head , unspecified gestational age Procedures [facility] Diagnostic [place] Marina Barrera DO [address] [place] [address] Phone: tel: fax: [facility] US PER DI[facility] [address] [place] [address] Phone: tel: Referral ID Status Reason Start Date Expiration Date Visits Re quested Visits Authorized [id number] Closed 04/10/2025 07/10/2026 1 1 Encounter Details Date Type Department Care Team (Latest Contact Info) Description 04/18/2025 8:46 AM EDT - 04/18/2025 11:59 PM EDT Hospital Encounter [facility] [address] [place] [address] Marina Barrera, [address] [facility] [address] [place] [address] Placenta, abnormal, third trimester; Large [...] Procedure Name Priority Date/Time Associated Diagnosis Comments [facility] Routine 04/18/2025 9:59 AM EDT Placenta, abnormal, third trimester Large head , unspecified gestational age documented in this encounter Results * [facility] (04/18/2025 9:59 AM EDT) Anatomical Region Laterality Modality Ultrasound 04/18/2025 9:16 AM EDT Narrative 04/18/2025 10:05 AM EDT PAT NAME: ARACELI RIOS MED REC#: [id number] DA: [id number] PAT GEND: F PAT TYPE: O EXAM JONATHAN: [id number] REF PHYS MARINA BARRERA Comparison Studies There [...] EFW (oz) 3 oz EFW by: Hadlock (NFU-KP-RH-FL) Extended Tibia 54.2 mm 32w 0d 51% Martine Fibula 52.3 mm 32w 1d 50% Martine Foot 63.3 mm 29% Chitty Radius 46.3 mm 33w 2d 58% Martine Ulna 51.8 mm 32w 5d 45% Martine Cav. septi pel. tr 7.8 mm Clerk Television Production 6.8 mm CM 5.6 mm 10% Nicolaides [...] normal IVC: normal 3-vessel view: Appears normal 5-xbivdy-btlyqhv view: Appears normal Rt lung: Appears normal [...] growth assessment (your office) Further ultrasounds/consultation at [facility] at your discretion Coding ======= Description: 94621-99 Detailed Ultrasound Description: 34966-42 BPP without NST Tobacco Drier Operator: Eneida Akers RDMS Physician: Dominguez Deleon MD Electronically signed by: Dominguez Deleon MD at: 10:05 Procedure Note Dominguez Deleon MD - 04/18/2025 PAT NAME: ARACELI RIOS MED REC#: [id number] DA: [id number] PAT GEND: F PAT TYPE: O EXAM JONATHAN: [id number] REF PHYS MARINA BARRERA Comparison Studies There are no relevant prior studies to which this study is beingcompared Patient Status Outpatient Indication ======== Concern for accessory lobe, Large head, [place] Maternal Assessment Rkzule540 cm Height (ft)5 ft Height (in)6 in Rmutky463 kg Weight (lb)287 lb BMI46.61 kg/m Method ======= Transabdominal ultrasound examination. View: Adequate view ========= Dorman . Number of fetuses: 1 Dating ====== Method of dating:based on stated ANICETO GA by prior [id number] w + 1 d ANICETO by prior assessment:06/12/2025 Ultrasound examination on:04/18/2025 GA by U/S based upon:AC, BPD, Femur, HC GA by U/S34 w + 5 d ANICETO by U/S:05/25/2025 Assigned:based on stated ANICETO, selected on 04/18/2025 Assigned GA32 w + 1 d Assigned ANICETO:06/12/2025 yeoizp203 d Biometry Standard BPD90.0 mm 36w 3d >99% Hadlock LFO703.5 mm 36w 2d >99% Martine HC315.9 mm 35w 3d 92% Hadlock Cerebellum tr42.6 mm 33w 3d 70% Hill AC299.0 mm 33w 6d 91% Hadlock Femur64.5 mm 33w 2d 69% Hadlock Bwexlfh44.8 mm 31w 2d 29% Martine HC / AC1.06 EFW2,353 g 33w 6d 92% Hadlock EFW (lb)5 lb EFW (oz)3 oz EFW by:Hadlock (JJG-DK-BE-FL) Extended Tibia54.2 mm 32w 0d 51% Martine Lrdefn61.3 mm 32w 1d 50% Martine Foot63.3 mm 29% Chitty Bnqnnj77.3 mm 33w 2d 58% Martine Ulna51.8 mm 32w 5d 45% Martine Cav. septi pel. tr7.8 mm Vp6.8 mm CM5.6 mm 10% Nicolaides Nasal bone11.6 mm Rt Renal pelvis ap6.9 mm Lt Renal pelvis ap7.7 mm Head / Face / Neck Cephalic index0.82 75% Nicolaides Extremities / Bony Struc FL / BPD0.72 FL / HC0.20 FL / AC0.22 Other Structures GRI212 bpm General Evaluation Cardiac activity present. FHR [...] view:Appears normal SVC:normal IVC:normal 3-vessel view:Appears normal 5-tifqkf-rxqokbr view:Appears normal Rt lung:Appears normal Lt lung:normal [...] Structures Uterus / Cervix Cervix:Visualized Approach:Transabdominal Cervical mnaltu58.5 mm Ovaries / Tubes / Adnexa Rt ovary:Visualized Lt ovary:Visualized Consultation / Office Visit Type: Consultation See [facility] for full consult note. 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
--- OUTSIDE RECORDS SUMMARY | 2025-04-18 09:00 | XMS_ITS | Encounter Summary ---
[facility] Address [address] [place] [address] Care Team Providers Care Sand Cutting Machine Operator Name Role Phone Provider, No Known Primary Care Provider Unavail able Reason for Visit * Reason Comments Anterior accessory lobe of placenta, lar ge head Encounter Details Date Type Department Care Team (Late st Contact Info) Description 04/18/2025 9:00 AM EDT Office Visit [facility] MATERNAL MEDICINE [address] [place], [place] [address] Dominguez Deleon MD [address] [facility] [address] [place] [id number] hydronephrosis during , antepartum, single or unspecified [...] [facility]. Dominguez Deleon MD, FACOG Maternal Medicine, [facility] documented in this encounter Plan of Treatment Not on file documented as of this encounter Visit Diagnoses Diagnosis hydronephrosis during , antepartum, single or unspecified fetus- Primary Suspected problem with placenta not found Suspected placental problem not found Vapes nicotine containing substance documented in this encounter Care Teams Sand Cutting Machine Operator Relationship Specialty Start Date End Date Provider, [place] [address] PCP - General 04/10/25 documented as of this encounter
--- NOTE | 2025-05-13 11:00 | US_ITS ---
PROCEDURE: US OB FOLLOW UP CLINICAL INDICATION: growth COMPARISON: US US TRANSVAGINAL from 10/10/2024 US US OB /MATERNAL DETAIL from 01/23/2025 US OB FOLLOW UP from 02/06/2025 US OB FOLLOW UP from 03/19/2025 US OB BIOPHYSICAL PROFILE from 04/09/2025 US OB FOLLOW UP from 04/16/2025 FINDINGS: Transabdominal sonographic images of the pelvis were obtained. The following parameters are obtained: From her established due date she is 35weeks 5days Viable fetus in the cephalic presentation with an anterior placenta with a posterior lateral wrap grade 2. The cervix measures 3.53 cm heart rate: 124bpm bpm. Average ultrasound age 38 weeks 1 day Estimated weight 3168 grams, 7 lb 0 oz BPD: 39weeks 0 days, >98 percentile HC: 40weeks 4days, > 98 percentile AC: 37weeks 0 days, 87 percentile FL: 36weeks 0 days, 52 percentile HC/AC: 1.06 FL/BPD: 0.74 FL/AC: 0.21 Growth percentile: 88 Amniotic fluid index: 22.51cm, MVP 6.35 cm No obvious anomalies evident. profile seen, stomach, bladder, kidneys, three-vessel cord, four chamber heart appear normal. IMPRESSION: 1. Viable fetus in the cephalic presentation with an anterior placenta with a posterior lateral wrap grade 2. 2. The fluid is within normal limits with an amniotic fluid index 22.51 cm, MVP 6.35 cm. 3. There continues be accelerated growth of the head with the head circumference 5 weeks ahead. 4. Limited anatomical scan appears normal. Dictated by: Giacomo Webster MD 05/13/2025 16:10 Giacomo Webster MD in OV 05/13/2025 16:10
--- OUTSIDE RECORDS SUMMARY | 2025-05-13 11:17 | XMS_ITS | Clinical Summary ---
Author Organization [facility] Address [address] [place] [address] Care Team Providers Care Patient Placement Coordinator Name Role Phone Miranda Pa HAILEY Primary [...] 2022 [facility]-Cervical Cancer Screening 2025 [facility]-HPV/Cotest 2025 XOU-BEJHB-88 Vaccine ( - season) 2025 [facility]-Influenza Vaccine [...] to complete this topic Insurance [employer]ETNA [facility] MEDICAID Care Teams Patient Placement Coordinator Relationship Specialty Start Date End Date Miranda Pa APRN [address] [place] [address] PCP - General 11/28/20
--- OUTSIDE RECORDS SUMMARY | 2025-05-13 11:17 | XMS_ITS | Clinical Summary ---
Author Organization [facility] Address [address] [place] [address] Care Team Providers Care Technology Applications Teacher Name Role Phone Provider, No Known Primary [...] Description 04/18/2025 9:00 AM EDT Office Visit [facility] MATERNAL MEDICINE [address] [facility] [address] [place] [address] Dominguez Deleon MD hydronephrosis during , antepartum, single or unspecified fetus (Primary Dx); Suspected problem with placenta not found; Vapes nicotine containing substance 04/18/2025 8:46 AM EDT - 04/18/2025 11:59 PM EDT Hospital Encounter [facility] US PER DIAG CTR [address] [place] [address] Marina Barrera DO Placenta, abnormal, [...] Procedure Name Priority Date/Time Associated Diagnosis Comments [facility] Routine 04/18/2025 9:59 AM EDT Placenta, abnormal, third trimester Large head , unspecified gestational age from Last 3 Months Results * [facility] (04/18/2025 9:59 AM EDT) Anatomical Region Laterality Modality Ultrasound 04/18/2025 9:16 AM EDT Narrative 04/18/2025 10:05 AM EDT PAT NAME: ARACELI RIOS [facility] REC#: [id number] DA: [id number] PAT GEND: F PAT TYPE: O EXAM JONATHAN: [id number] REF PHYS CLOVISRADHAMARINA Comparison Studies There are [...] by U/S: 05/25/2025 Assigned: based on stated ANCIETO, selected on 04/18/2025 Assigned GA 32 w [...] EFW (oz) 3 oz EFW by: Hadlock (HEQ-AO-XK-FL) Extended Tibia 54.2 mm 32w 0d 51% Martine Fibula 52.3 mm 32w 1d 50% Martine Foot 63.3 mm 29% Chitty Radius 46.3 mm 33w 2d 58% Martine Ulna 51.8 mm 32w 5d 45% Martine Cav. septi pel. tr 7.8 mm Licensed Social Worker 6.8 mm CM 5.6 mm 10% Nicolaides [...] normal IVC: normal 3-vessel view: Appears normal 0-lgrjac-hfxfdkv view: Appears normal Rt lung: Appears normal [...] assessment (your office) Further ultrasounds/consultation at [facility] at your discretion Coding ======= Description: 84532-18 Detailed Ultrasound Description: 24005-76 BPP without NST Senior Devops Engineer: Eneida Akers RDMS Physician: Dominguez Deleon MD Electronically signed by: Dominguez Deleon MD at: 10:05 Procedure Note Dominguez Deleon MD - 04/18/2025 PAT NAME: ARACELI RIOS MED REC#: [id number] DA: 1995 PAT GEND: F PAT TYPE: O EXAM JONATHAN: [id number] REF PHYS MARINA [place] Comparison Studies There are no relevant prior studies to which this study is beingcompared Patient Status Outpatient Indication ======== 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 View: Adequate view ========= Dorman . Number of fetuses: 1 Dating ====== Method of dating:based on stated ANICETO GA by prior [id number] w + 1 d ANICETO by prior assessment:06/12/2025 Ultrasound examination on:04/18/2025 GA by U/S based upon:AC, BPD, Femur, HC GA by U/S34 w + 5 d ANICETO by U/S:05/25/2025 Assigned:based on stated ANICETO, selected on 04/18/2025 Assigned GA32 w + 1 d Assigned ANICETO:06/12/2025 [id number] d Biometry Standard BPD90.0 mm 36w 3d >99% Hadlock XZR845.5 mm 36w 2d >99% Martine HC315.9 mm 35w 3d 92% Hadlock Cerebellum tr42.6 mm 33w 3d 70% Hill AC299.0 mm 33w 6d 91% Hadlock Femur64.5 mm 33w 2d 69% Hadlock Zqyhuwe62.8 mm 31w 2d 29% Martine HC / AC1.06 EFW2,353 g 33w 6d 92% Hadlock EFW (lb)5 lb EFW (oz)3 oz EFW by:Hadlock (KEI-SQ-WV-FL) Extended Tibia54.2 mm 32w 0d 51% Martine Pnrfxw26.3 mm 32w 1d 50% Martine Foot63.3 mm 29% Chitty Ijteng68.3 mm 33w 2d 58% Martine Ulna51.8 mm 32w 5d 45% Martine Cav. septi pel. tr7.8 mm Vp6.8 mm CM5.6 mm 10% Nicolaides Nasal bone11.6 mm Rt Renal pelvis ap6.9 mm Lt Renal pelvis ap7.7 mm Head / Face / Neck Cephalic index0.82 75% Nicolaides Extremities / Bony Struc FL / BPD0.72 FL / HC0.20 FL / AC0.22 Other Structures QGI991 bpm General Evaluation Cardiac activity present. FHR [...] view:Appears normal SVC:normal IVC:normal 3-vessel view:Appears normal 9-ljknei-rrtvdzs view:Appears normal Rt lung:Appears normal Lt lung:normal [...] Consultation / Office Visit Type: Consultation See [facility] for full consult note. Impression [...] assessment (your office) Further ultrasounds/consultation at [facility] at your discretion Coding ======= Description:94999-70 Detailed Ultrasound Description:80949-62 BPP without NST Senior Devops Engineer: Eneida Akers RDMS Physician: Dominguez Deleon MD Electronically signed by: Dominguez Deleon MD at: 10:05 us Marina Laurenradha DO IMG US ORDERABLES Final Result from Last [address] [place] [id number] [facility] Care Teams Technology Applications Teacher Relationship Specialty Start Date End Date Provider, [place] [address] PCP - General 04/10/25
--- OUTSIDE RECORDS SUMMARY | 2025-05-13 11:17 | XMS_ITS | Encounter Summary ---
Author Organization [facility] Address [address] [place] [address] Care Team Providers Care Scientist Engineer Name Role Phone Miranda Pa APRN Primary Care Provider + Encounter Details Date Type Department Care Team (Late st Contact Info) Description 01/22/2021 Community [facility] Practice [address] [place] [address] Miranda Pa APRN [address] [facility] [place] [address] Migraine without status migrainosus, not intractable, unspecified [...] Primary documented in this encounter Care Teams Scientist Engineer Relationship Specialty Start Date End Date Miranda Pa APRN [address] [facility] [place] [address] PCP - General 11/28/20 documented as of this encounter
--- OUTSIDE RECORDS SUMMARY | 2025-05-13 11:17 | XMS_ITS | Encounter Summary ---
[facility] Organization [facility] Address [address] [place] [address] Care Team Providers Care Geological Engineer Name Role Phone Provider, No Known [...] filedocumented in this encounter Care Teams Geological Engineer Relationship Specialty Start Date End Date Provider, No Known [facility] [address] PCP - General 04/10/25 documented as of this encounter
== END 2025-05-13 23:59 | disposition home or self-care (01) ==
LOC: RAD 11:00
PROVIDERS: PCP Obstetrics & Gynecology; Visit Provider Obstetrics & Gynecology
DX: O36.63X0 Maternal care for excessive fetal growth, third trimester, not applicable or unspecified (principal); Z3A.35 35 weeks gestation of pregnancy
CPT/HCPCS: 76816

== ENCOUNTER 2025-05-20 16:41 | Outpatient (CLI) | payer OTHER, SELFPAY ==
--- OUTSIDE RECORDS SUMMARY | 2025-04-18 07:46 | XMS_ITS | Encounter Summary ---
[facility] Address [address] [place] [address] Care Team Providers Care Tool Carrier Name Role Phone Provider, No Known Primary Care Provider Unavail able Reason for Referral * Diagnostic Imaging (Routine) - Closed Specialty Diagnoses / Procedures Referred By Contac t Referred To Contact Radiology Diagnoses Placenta, abnormal, third trimester Large head , unspecified gestational age Procedures US [facility] Diagnostic [place] Marina Barrera DO [address] [place] [address] Phone: tel: fax: [facility] US PER DIAG CTR [address] [place] [address] Phone: tel: Referral ID Status Reason Start Date Expiration Date Visits Re quested Visits Authorized [id number] Closed 04/10/2025 07/10/2026 1 1 Reason for Visit * Diagnostic Imaging (Routine) - Closed Specialty Diagnoses / Procedures Referred By Contac t Referred To Contact Radiology Diagnoses Placenta, abnormal, third trimester Large head , unspecified gestational age Procedures [facility] [place] Marina Barrera DO [address] [place] [address] Phone: tel: fax: [facility] US PER DIAG CTR [address] [place] [address] Phone: tel: Referral ID Status Reason Start Date Expiration Date Visits Re quested Visits Authorized [id number] Closed 04/10/2025 07/10/2026 1 1 Encounter Details Date Type Department Care Team (Latest Contact Info) Description 04/18/2025 8:46 AM EDT - 04/18/2025 11:59 PM EDT Hospital Encounter [facility] PER DIAG CTR [address] [place] [address] Marina Barrera, [address] [facility] [address] [place] [address] Placenta, abnormal, third trimester; Large [...] Procedure Name Priority Date/Time Associated Diagnosis Comments [facility] Routine 04/18/2025 9:59 AM EDT Placenta, abnormal, third trimester Large head , unspecified gestational age documented in this encounter Results * [facility] (04/18/2025 9:59 AM EDT) Anatomical Region Laterality Modality Ultrasound 04/18/2025 9:16 AM EDT Narrative 04/18/2025 10:05 AM EDT PAT NAME: ARACELI RIOS MED REC#: [id number] DA: [id number] PAT GEND: F PAT TYPE: O EXAM JONATHAN: [id number] REF PHYS MARINA BARRERA Comparison Studies There [...] EFW (oz) 3 oz EFW by: Hadlock (GFA-OW-WE-FL) Extended Tibia 54.2 mm 32w 0d 51% Martine Fibula 52.3 mm 32w 1d 50% Martine Foot 63.3 mm 29% Chitty Radius 46.3 mm 33w 2d 58% Martine Ulna 51.8 mm 32w 5d 45% Martine Cav. septi pel. tr 7.8 mm Level Vial Setter 6.8 mm CM 5.6 mm 10% Nicolaides [...] normal IVC: normal 3-vessel view: Appears normal 2-gbuagm-pvumsqr view: Appears normal Rt lung: Appears normal [...] growth assessment (your office) Further ultrasounds/consultation at [facility] at your discretion Coding ======= Description: 08073-04 Detailed Ultrasound Description: 23399-84 BPP without NST Beater Machine Operator: Eneida Akers RDMS Physician: Dominguez Deleon MD Electronically signed by: Dominguez Deleon MD at: 10:05 Procedure Note Dominguez Deleon MD - 04/18/2025 PAT NAME: ARACELI RIOS MED REC#: [id number] DA: [id number] PAT GEND: F PAT TYPE: O EXAM JONATHAN: [id number] REF PHYS MARINA BARRERA Comparison Studies There are no relevant prior studies to which this study is beingcompared Patient Status Outpatient Indication ======== 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 View: Adequate view ========= Dorman . Number of fetuses: 1 Dating ====== Method of dating:based on stated ANICETO GA by prior [id number] w + 1 d ANICETO by prior assessment:06/12/2025 Ultrasound examination on:04/18/2025 GA by U/S based upon:AC, BPD, Femur, HC GA by U/S34 w + 5 d ANICETO by U/S:05/25/2025 Assigned:based on stated ANICETO, selected on 04/18/2025 Assigned GA32 w + 1 d Assigned ANICETO:06/12/2025 [id number] d Biometry Standard BPD90.0 mm 36w 3d >99% Hadlock OWP647.5 mm 36w 2d >99% Martine HC315.9 mm 35w 3d 92% Hadlock Cerebellum tr42.6 mm 33w 3d 70% Hill AC299.0 mm 33w 6d 91% Hadlock Femur64.5 mm 33w 2d 69% Hadlock Phjmilf62.8 mm 31w 2d 29% Martine HC / AC1.06 EFW2,353 g 33w 6d 92% Hadlock EFW (lb)5 lb EFW (oz)3 oz EFW by:Hadlock (LGA-VH-ID-FL) Extended Tibia54.2 mm 32w 0d 51% Martine Ywonbh69.3 mm 32w 1d 50% Martine Foot63.3 mm 29% Chitty Ycctde41.3 mm 33w 2d 58% Martine Ulna51.8 mm 32w 5d 45% Martine Cav. septi pel. tr7.8 mm Vp6.8 mm CM5.6 mm 10% Nicolaides Nasal bone11.6 mm Rt Renal pelvis ap6.9 mm Lt Renal pelvis ap7.7 mm Head / Face / Neck Cephalic index0.82 75% Nicolaides Extremities / Bony Struc FL / BPD0.72 FL / HC0.20 FL / AC0.22 Other Structures IZC422 bpm General Evaluation Cardiac activity present. FHR [...] view:Appears normal SVC:normal IVC:normal 3-vessel view:Appears normal 7-cyxgwv-rzwcevp view:Appears normal Rt lung:Appears normal Lt lung:normal [...] Structures Uterus / Cervix Cervix:Visualized Approach:Transabdominal Cervical yehxfo56.5 mm Ovaries / Tubes / Adnexa Rt ovary:Visualized Lt ovary:Visualized Consultation / Office Visit Type: Consultation See [facility] for full consult note. 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
--- OUTSIDE RECORDS SUMMARY | 2025-04-18 08:00 | XMS_ITS | Encounter Summary ---
[facility] Address [address] [place] [address] Care Team Providers Care Claims Agent Right Of Way Name Role Phone Provider, No Known Primary Care Provider Unavail able Reason for Visit * Reason Comments Anterior accessory lobe of placenta, lar ge head Encounter Details Date Type Department Care Team (Late st Contact Info) Description 04/18/2025 9:00 AM EDT Office Visit [facility] MATERNAL MEDICINE [address] [place], [place] [address] Dominguez Deleon MD [address] [facility] [address] [place] [phone] hydronephrosis during , antepartum, single or unspecified [...] delivery and post-jenn renal ultrasound of the infant within the [...] delivery and post- renal ultrasound of the within the first [...] CVS. Dominguez Deleon MD, FACOG Maternal Medicine, [facility] documented in this encounter Plan of Treatment Not on file documented as of this encounter Visit Diagnoses Diagnosis hydronephrosis during , antepartum, single or unspecified fetus- Primary Suspected problem with placenta not found Suspected placental problem not found Vapes nicotine containing substance documented in this encounter Care Teams Claims Agent Right Of Way Relationship Specialty Start Date End Date Provider, [place] [address] PCP - General 04/10/25 documented as of this encounter
[2025-05-20 16:46] VITALS: BMI 47.9
--- OUTSIDE RECORDS SUMMARY | 2025-05-20 16:46 | XMS_ITS | Encounter Summary ---
Author Organization [facility] Address [address] [place] [address] Care Team Providers Care Rope Maker Name Role Phone Provider, No Known Primary [...] on filedocumented in this encounter Care Teams Rope Maker Relationship Specialty Start Date End Date Provider, No Known [facility] [place] [address] PCP - General 04/10/25 documented as of this encounter
--- OUTSIDE RECORDS SUMMARY | 2025-05-20 16:46 | XMS_ITS | Encounter Summary ---
Author Organization [facility] Address [address] [place] [address] Care Team Providers Care Maintenance And Repair Worker Name Role Phone Miranda Pa APRN Primary Care Provider + Encounter Details Date Type Department Care Team (Late st Contact Info) Description 01/22/2021 Community [facility] Community Practice [address] [place] [address] Miranda Pa APRN [address] [facility] [place] [address] Migraine without status migrainosus, not intractable, unspecified [...] Primary documented in this encounter Care Teams Maintenance And Repair Worker Relationship Specialty Start Date End Date Miranda Pa APRN [address] [facility] [place] [address] PCP - General 11/28/20 documented as of this encounter
--- OUTSIDE RECORDS SUMMARY | 2025-05-20 16:46 | XMS_ITS | Clinical Summary ---
Author Organization [facility] Address [address] [place] [address] Care Team Providers Care Lab Asst Name Role Phone Miranda Pa HAILEY Primary [...] 2022 [facility]-Cervical Cancer Screening 2025 [facility]-HPV/Cotest 2025 JDZ-KISKI-14 Vaccine ( - season) 2025 [facility]-Influenza Vaccine [...] age to complete this topic Insurance [employer]NA [facility] MEDICAID Care Teams Lab Asst Relationship Specialty Start Date End Date Miranda Pa APRN [address] [facility] [place] [address] PCP - General 11/28/20
--- OUTSIDE RECORDS SUMMARY | 2025-05-20 16:46 | XMS_ITS | Clinical Summary ---
Author Organization [facility] Address [address] [place] [address] Care Team Providers Care Community Service Technician Name Role Phone Provider, No Known Primary Care Provider Unavail able Allergies Active Allergy Reactions Criticality Noted Date Comments Prochlorperazine Edisylate Other (See Comments) Medium 04/18/2025 Hot flashes, panic attacks Metoclopramide Hives Low 01/11/2023 Medications metroNIDAZOLE (METROGEL) 0.75 % vaginal gel Insert 1 Applicatorful into the vagina As Needed. 5 Active miconazole (MONISTAT 1 COMBINATION PACK) 1200 & 2 MG & % kit Insert 1 each into the vagina As Needed. 5 Active Vit-Fe Fumarate-FA (GNP ) 28-0.8 MG tablet Take 1 tablet by mouth Daily. 5 Active MAGNESIUM GLYCINATE PO Take 400 mg by mouth 2 (Two) Times a Day. Active Active Problems Problem Noted Date Diagnosed Date [...] Description 04/18/2025 9:00 AM EDT Office Visit [facility] MATERNAL MEDICINE [address] [place] [address] Dominguez Deleon MD hydronephrosis during , antepartum, single or unspecified fetus (Primary Dx); Suspected problem with placenta not found; Vapes nicotine containing substance 04/18/2025 8:46 AM EDT - 04/18/2025 11:59 PM EDT Hospital Encounter [facility] [address] [place] [address] Marina Barrera DO Placenta, abnormal, [...] Procedure Name Priority Date/Time Associated Diagnosis Comments [facility] Routine 04/18/2025 9:59 AM EDT Placenta, abnormal, third trimester Large head , unspecified gestational age from Last 3 Months Results * [facility] (04/18/2025 9:59 AM EDT) Anatomical Region Laterality Modality Ultrasound 04/18/2025 9:16 AM EDT Narrative 04/18/2025 10:05 AM EDT PAT NAME: ARACELI RIOS [facility] REC#: [id number] DA: [id number] PAT GEND: F PAT TYPE: O EXAM JONATHAN: [id number] REF PHYS MARINA BARRERA Comparison Studies There [...] EFW (oz) 3 oz EFW by: Hadlock ([id number]-NB-EX-FL) Extended Tibia 54.2 mm 32w 0d 51% Martine Fibula 52.3 mm 32w 1d 50% Martine Foot 63.3 mm 29% Chitty Radius 46.3 mm 33w 2d 58% Martine Ulna 51.8 mm 32w 5d 45% Amrtine Cav. septi pel. tr 7.8 mm Mapper 6.8 mm CM 5.6 mm 10% Nicolaides [...] normal IVC: normal 3-vessel view: Appears normal 9-yaworz-lsadvku view: Appears normal Rt lung: Appears normal [...] Consultation / Office Visit Type: Consultation See [facility] for full consult note. Impression Single, [...] growth assessment (your office) Further ultrasounds/consultation at [facility] at your discretion Coding ======= Description: 74106-71 Detailed Ultrasound Description: 55738-58 BPP without NST Editor Trade Journal: Eneida Akers RDMS Physician: Dominguez Deleon MD Electronically signed by: Dominguez Deleon MD at: 10:05 Procedure Note Dominguez Deleon MD - 04/18/2025 PAT NAME: ARACELI RIOS MED REC#: [id number] DA: [id number] PAT GEND: F PAT TYPE: O EXAM JONATHAN: [id number] REF PHYS MARINA BARRERA Comparison Studies There are no relevant prior studies to which this study is beingcompared Patient Status Outpatient Indication ======== 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 View: Adequate view ========= Dorman . Number of fetuses: 1 Dating ====== Method of dating:based on stated ANICETO GA by prior nlasjpcglb98 w + 1 d ANICETO by prior assessment:06/12/2025 Ultrasound examination on:04/18/2025 GA by U/S based upon:AC, BPD, Femur, HC GA by U/S34 w + 5 d ANICETO by U/S:05/25/2025 Assigned:based on stated ANICETO, selected on 04/18/2025 Assigned GA32 w + 1 d Assigned ANICETO:06/12/2025 zbtiif890 d Biometry Standard BPD90.0 mm 36w 3d >99% Hadlock ZZW879.5 mm 36w 2d >99% Martine HC315.9 mm 35w 3d 92% Hadlock Cerebellum tr42.6 mm 33w 3d 70% Hill AC299.0 mm 33w 6d 91% Hadlock Femur64.5 mm 33w 2d 69% Hadlock Sybwoui18.8 mm 31w 2d 29% Martine HC / AC1.06 EFW2,353 g 33w 6d 92% Hadlock EFW (lb)5 lb EFW (oz)3 oz EFW by:Hadlock (DCS-OR-KZ-FL) Extended Tibia54.2 mm 32w 0d 51% Martine Hduxaj76.3 mm 32w 1d 50% Martine Foot63.3 mm 29% Chitty Wqzdli36.3 mm 33w 2d 58% Martine Ulna51.8 mm 32w 5d 45% Martine Cav. septi pel. tr7.8 mm Vp6.8 mm CM5.6 mm 10% Nicolaides Nasal bone11.6 mm Rt Renal pelvis ap6.9 mm Lt Renal pelvis ap7.7 mm Head / Face / Neck Cephalic index0.82 75% Nicolaides Extremities / Bony Struc FL / BPD0.72 FL / HC0.20 FL / AC0.22 Other Structures ANJ648 bpm General Evaluation Cardiac activity present. FHR [...] view:Appears normal SVC:normal IVC:normal 3-vessel view:Appears normal 3-vnduzs-peygpzr view:Appears normal Rt lung:Appears normal Lt lung:normal [...] Structures Uterus / Cervix Cervix:Visualized Approach:Transabdominal Cervical pvkowo89.5 mm Ovaries / Tubes / Adnexa Rt [...] growth assessment (your office) Further ultrasounds/consultation at [facility] at your discretion Coding ======= Description:54345-70 Detailed Ultrasound Description:15129-93 BPP without NST Editor Trade Journal: Eneida Akers RDMS Physician: Dominguez Deleon MD Electronically signed by: Dominguez Deleon MD at: 10:05 us Marina Barrera DO IMG US ORDERABLES Final Result from Last 3 Months Insurance [place] [id number] [facility] [employer] Care Teams Community Service Technician Relationship Specialty Start Date End Date Provider, No Known [facility] [place] [address] PCP - General 04/10/25
[2025-05-20 17:05] VITALS: BP 118/74; PULSE 85; RESP 18; TEMP 36.7; O2SAT 97; BMI 47.9
--- NOTE | 2025-05-20 17:12 | US_ITS ---
PROCEDURE INFORMATION: Exam: US , Follow up Exam date and time: 05/20/2025 4:59 PM Age: 30 years old Clinical indication: Lmp or gestational age (in weeks): 36w5d; Antepartum complications; Premature rupture of membranes; ; Poss leaking fluid; Additional info: Sissy TECHNIQUE: Imaging protocol: Transabdominal ultrasound of the uterus, real time with image documentation. Follow-up (eg, re-evaluation of size by measuring standard growth parameters and amniotic fluid volume, re-evaluation of organ system(s) suspected or confirmed to be abnormal on a previous scan). COMPARISON: US OB FOLLOW UP 05/13/2025 10:58 AM FINDINGS: Gestation: Single viable intrauterine gestation. heart rate: heart rate 140 bpm. presentation and position: Cephalic position. Amniotic fluid index: Amniotic fluid index 17.4. BIOMETRY: Estimated weight: Estimated weight 3659 g, 97th percentile. Biparietal diameter (BPD): BPD 9.7 cm 39 weeks and 4 days, greater than 98th percentile. Head circumference (HC): Head circumference 34.7 cm 40 weeks and 2 days, 93rd percentile. Abdominal circumference (AC): Abdominal circumference 35.7 cm 39 weeks and 4 days, greater than 98th percentile. Femur length (FL): Femur length 7.2 cm 36 weeks 5 days, 46 percentile. MATERNAL: Cervix: Cervix is closed at 3.6 cm. IMPRESSION: Single viable intrauterine gestation, cephalic presentation. Estimated gestational age 39 weeks and 1 day. Amniotic fluid index 17.4. Cervix is closed and measures 3.6 cm in length.
[2025-05-20] MEDS: LACTATED RINGERS 1000ML 1,000 ML 999 ML IV (18:12)
[2025-05-20 20:30] VITALS: BP 110/75; PULSE 94; RESP 18; TEMP 36.9; O2SAT 98
== END 2025-05-20 20:50 | disposition home or self-care (01) ==
LOC: OBOUT 16:43 → OB 16:45
PROVIDERS: PCP Obstetrics & Gynecology; Visit Provider Nurse Practitioner Obstetrics & Gynecology
DX: O42.913 Preterm premature rupture of membranes, unspecified as to length of time between rupture and onset of labor, third trimester (principal); Z3A.36 36 weeks gestation of pregnancy
CPT/HCPCS: 76816; 99214; J7120

== ENCOUNTER 2025-05-22 21:57 | Outpatient (CLI) | payer OTHER, SELFPAY ==
--- OUTSIDE RECORDS SUMMARY | 2025-04-18 07:46 | XMS_ITS | Encounter Summary ---
[facility] Address [address] [place] [address] Care Team Providers Care Industrial Hygiene Engineer Name Role Phone Provider, No Known Primary Care Provider Unavail able Reason for Referral * Diagnostic Imaging (Routine) - Closed Specialty Diagnoses / Procedures Referred By Contac t Referred To Contact Radiology Diagnoses Placenta, abnormal, third trimester Large head , unspecified gestational age Procedures [facility] Diagnostic [place] Marina Barrera DO [address] [place] [address] Phone: tel: fax: [facility] US PER DIAG CTR [address] [place] [address] Phone: tel: Referral ID Status Reason Start Date Expiration Date Visits Re quested Visits Authorized [id number] Closed 04/10/2025 07/10/2026 1 1 Reason for Visit * Diagnostic Imaging (Routine) - Closed Specialty Diagnoses / Procedures Referred By Contac t Referred To Contact Radiology Diagnoses Placenta, abnormal, third trimester Large head , unspecified gestational age Procedures [facility] Diagnostic [place] Marina Barrera DO [address] [place] [address] Phone: tel: fax: [facility] US PER DIAG CTR [address] [place] [address] Phone: tel: Referral ID Status Reason Start Date Expiration Date Visits Re quested Visits Authorized [id number] Closed 04/10/2025 07/10/2026 1 1 Encounter Details Date Type Department Care Team (Latest Contact Info) Description 04/18/2025 8:46 AM EDT - 04/18/2025 11:59 PM EDT Hospital Encounter [facility] PER DIAG CTR [address] [place] [address] Marina Barrera, [address] [facility] [address] [place] [address] Placenta, abnormal, third trimester; Large [...] Procedure Name Priority Date/Time Associated Diagnosis Comments [facility] Routine 04/18/2025 9:59 AM EDT Placenta, abnormal, third trimester Large head , unspecified gestational age documented in this encounter Results * [facility] (04/18/2025 9:59 AM EDT) Anatomical Region Laterality Modality Ultrasound 04/18/2025 9:16 AM EDT Narrative 04/18/2025 10:05 AM EDT PAT NAME: ARACELI RIOS MED REC#: [id number] DA: [id number] PAT GEND: F PAT TYPE: O EXAM JONATHAN: [id number] REF PHYS MARINA BARRERA Comparison Studies There [...] EFW (oz) 3 oz EFW by: Hadlock (VDM-TV-WY-FL) Extended Tibia 54.2 mm 32w 0d 51% Martine Fibula 52.3 mm 32w 1d 50% Martine Foot 63.3 mm 29% Chitty Radius 46.3 mm 33w 2d 58% Martine Ulna 51.8 mm 32w 5d 45% Martine Cav. septi pel. tr 7.8 mm [employer] Wafer Breaker 6.8 mm CM 5.6 mm 10% Nicolaides [...] normal IVC: normal 3-vessel view: Appears normal 7-qmqzho-aavydxk view: Appears normal Rt lung: Appears normal [...] growth assessment (your office) Further ultrasounds/consultation at [facility] at your discretion Coding ======= Description: 70212-22 Detailed Ultrasound Description: 44784-93 BPP without NST Pulp Screen Operator: Eneida Akers RDMS Physician: Dominguez Deleon MD Electronically signed by: Dominguez Deleon MD at: 10:05 Procedure Note Dominguez Deleon MD - 04/18/2025 PAT NAME: ARACELI RIOS MED REC#: [id number] DA: [id number] PAT GEND: F PAT TYPE: O EXAM JONATHAN: [id number] REF PHYS MARINA BARRERA Comparison Studies There are no relevant prior studies to which this study is beingcompared Patient Status Outpatient Indication ======== 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 View: Adequate view ========= [place] . Number of fetuses: 1 Dating ====== Method of dating:based on stated ANICETO GA by prior ivhxtmuzwd76 w + 1 d ANICETO by prior assessment:06/12/2025 Ultrasound examination on:04/18/2025 GA by U/S based upon:AC, BPD, Femur, HC GA by U/S34 w + 5 d ANICETO by U/S:05/25/2025 Assigned:based on stated ANICETO, selected on 04/18/2025 Assigned GA32 w + 1 d Assigned ANICETO:06/12/2025 [id number] d Biometry Standard BPD90.0 mm 36w 3d >99% Hadlock MQQ333.5 mm 36w 2d >99% Martine HC315.9 mm 35w 3d 92% Hadlock Cerebellum tr42.6 mm 33w 3d 70% Hill AC299.0 mm 33w 6d 91% Hadlock Femur64.5 mm 33w 2d 69% Hadlock Zeguttr75.8 mm 31w 2d 29% Martine HC / AC1.06 EFW2,353 g 33w 6d 92% Hadlock EFW (lb)5 lb EFW (oz)3 oz EFW by:Hadlock (EBC-CD-NW-FL) Extended Tibia54.2 mm 32w 0d 51% Martine Vvgfnc82.3 mm 32w 1d 50% Martine Foot63.3 mm 29% Chitty Qdizcu61.3 mm 33w 2d 58% Martine Ulna51.8 mm 32w 5d 45% Martine Cav. septi pel. tr7.8 mm Vp6.8 mm CM5.6 mm 10% Nicolaides Nasal bone11.6 mm Rt Renal pelvis ap6.9 mm Lt Renal pelvis ap7.7 mm Head / Face / Neck Cephalic index0.82 75% Nicolaides Extremities / Bony Struc FL / BPD0.72 FL / HC0.20 FL / AC0.22 Other Structures ARL742 bpm General Evaluation Cardiac activity present. FHR [...] view:Appears normal SVC:normal IVC:normal 3-vessel view:Appears normal 7-loozex-oelxmko view:Appears normal Rt lung:Appears normal Lt lung:normal [...] Structures Uterus / Cervix Cervix:Visualized Approach:Transabdominal Cervical ezlxma98.5 mm Ovaries / Tubes / Adnexa Rt ovary:Visualized Lt ovary:Visualized Consultation / Office Visit Type: Consultation See [facility] for full consult note. 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
--- OUTSIDE RECORDS SUMMARY | 2025-04-18 08:00 | XMS_ITS | Encounter Summary ---
[facility] Address [address] [place] [address] Care Team Providers Care Artificial Stone Applicator Name Role Phone Provider, No Known Primary Care Provider Unavail able Reason for Visit * Reason Comments Anterior accessory lobe of placenta, lar ge head Encounter Details Date Type Department Care Team (Late st Contact Info) Description 04/18/2025 9:00 AM EDT Office Visit [facility] MATERNAL MEDICINE [address] [place], [place] [phone] Dominguez Deleon MD [address] [facility] [address] [place] [phone] hydronephrosis during , antepartum, single or unspecified [...] 4 weeks (your office) ~36 weeks * Parlu Gautam RN - 04/18/2025 9:00 AM EDT Denies vaginal bleeding, leaking fluid, and contractions. Endorses normal movement. NIPT low risk. Next OB follow-up appointment with Dr. Barrera on 04/29/25. * Dominguez Deleon MD - 04/18/2025 9:00 AM EDT Images from the original note were not included. Maternal Medicine Consult Note Date: 04/18/2025 Name: Araceli Sanders : 1995 NAICETO: Estimated Date of Delivery: 06/12/25 Referring Provider: [...] CVS. Dominguez Deleon MD, FACOG Maternal Medicine, [facility] documented in this encounter Plan of Treatment Not on file documented as of this encounter Visit Diagnoses Diagnosis hydronephrosis during , antepartum, single or unspecified fetus- Primary Suspected problem with placenta not found Suspected placental problem not found Vapes nicotine containing substance documented in this encounter Care Teams Artificial Stone Applicator Relationship Specialty Start Date End Date Provider, [place] [address] PCP - General 04/10/25 documented as of this encounter
--- OUTSIDE RECORDS SUMMARY | 2025-05-22 22:01 | XMS_ITS | Encounter Summary ---
Author Organization Healthcare Address [address] [place] [address] Care Team Providers Care Jig Box Operator Name Role Phone Miranda Pa APRN Primary Care Provider + Encounter Details Date Type Department Care Team (Late st Contact Info) Description 01/22/2021 Community [facility] [address] [place] [address] Miranda Pa APRN [address] [facility] [place] [address] Migraine without status migrainosus, not intractable, unspecified [...] Primary documented in this encounter Care Teams Jig Box Operator Relationship Specialty Start Date End Date Miranda Pa APRN [address] [facility] [place] [address] PCP - General 11/28/20 documented as of this encounter
--- OUTSIDE RECORDS SUMMARY | 2025-05-22 22:01 | XMS_ITS | Data Portability ---
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 Lab cytology report, thin prep, smear or scraping, cervical or vaginal 2022 023 LAUREL [facility], [address], [place], [address], 3 12:13:17 TSH + free T4, serum 2022 023 LAUREL [facility], [address], [place], [address], 3 10:36:51 testosteron e, free + total, serum 2022 023 SHERIDAN [facility], [address], [place], [address], 3 10:36:52 HbA1c (hemoglobin A1c), blood 2022 023 SHERIDAN [facility], [address], [place], [address], 3 10:36:55 test, urine 2022 023 [facility] 2 [place] Sole Stapler Welt, [address] [place] [address] , [place], [address], 3 16:31:01 vaginal pathogens panel, AVIVA+probe, vaginal fluid 2022 023 SHERIDAN [facility], [address], [place], [address], 3 10:36:50 HIV 1 + 2, meaningful use set 2022 023 SHERIDAN [facility], [address], [place], [address], 3 10:36:52 RPR (rapid plasma reagin), serum 2022 023 SHERIDAN [facility], [address], [place], [address], 3 10:36:53 HBsAg (hepatitis B surface Ag), EIA, serum 2022 023 SHERIDAN [facility], [address], [place], [address], 3 10:36:56 Hepatitis C IgG Ab, qual, serum 2022 023 SHERIDAN [facility], [address], [place], [address], 3 10:36:54 cytology report, thin prep, smear or scraping, cervical or vaginal 2022 023 SHERIDAN [facility], [address], [place], [address], 3 13:07:39 CBC w/ auto diff 2021 022 [facility]( Lab), [address] [place] [address] [place], [address], 2 12:15:31 CMP, serum or plasma 2021 022 [facility]( Lab), [address] [place] [address] [place], [address], 2 16:27:52 urinalysis, reflex culture 2021 [facility]( Lab), [address] [place] [address] [place], [address], 2 18:13:34 Pap smear tests - FPAR 2.0 set 2021 022 SHERIDAN [facility], [address], [place], [address], 2 13:09:33 test, urine 2021 022 [email or web address] [place] Sole Stapler Welt, [address] [place] [address] , [place], [address], 2 14:59:48 culture, urine 2021 022 SHERIDAN [facility], [address], [place], [address], 2 22:07:17 urinalysis, dipstick 2021 022 [email or web address] [place] Sole Stapler Welt, [address] [place] [address] , [place], [address], 09:23:09 Referral gynecologic surgery referral - lap b/l salpingecto my 2021 022 [email or web address] Not available 12:43:16 Procedures None recorded. Surgeries None recorded. Imaging None recorded. Medication Orders Prelief 65 mg tablet 2021 022 [email or web address] [facility] - [address], [place], [address], 13:08:44 Patient TargetsNo targets recorded. Patient Instructions Encounter Date Encounter Id Patient Instructions Last Modified By Organization Details Last Modified Time 09/24/2021 [id number] Increase fluids Avoid soda and tea Will send urine for culture and call with results. If urine culture is positive, will call in an antibiotic. [email or web address] Not available 09/24/2021 10:24:55 01/12/2022 [id number] Interstitial cystitis questionnaire given and score positive for IC. Discussed IC care guide as well as first line treatments including dietary changes and OTC prelief. Rx prelief given Pap obtained Will sign sterilization paperwork and RTO for preop for lap b/l salpingectomy. 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 Will counselor at law on PNV at next visit -Depression screening: PHQ 9 negative -Family Hx: Mother with hx of cervical cancer and leiomyoma Vaginal pain/pelvic pain/dysuapreunia: will get ER records. Pt reports enlarged mesentry. Will get CT scan results. Return for pelvic US Brienbessy deisres excision of sebaceous cysts from her vulva. Will perform this as well upon return [email or web address] Not available 07/29/2022 13:27:23 01/05/2023 [id number] Given post-coita l bleeding and hx of cervical dysplasia, pap collected, but also recommended colpo and she agrees. Given AUB, check labs and return for US. Also performing for pelvic pain Full STI testing performed today [email or web address] Not available 01/09/2023 16:32:35 Reason for Referral Gynecologic Surgery Referral for Sterilization requested lap b/l salpingectomy Referring Physician: Alis Mays, [employer], Encounter Date: 01/12/2022 Results Created Date Observation Date Name Description Value Unit Range Abnormal Flag Note LastModifiedBy Organization Detail LastModifiedTime 09/10/19 22 09/10/2021 rapid strep group A, throa t Strep negati ve Not Available [address] , [place], [address], 09/10/2021 15:09:41 09/25/19 22 09/25/2021 URINE CULTU REEVIN NE urine culture, routine Final report Not Available [facility] ([facility]) [address] [place], [address], 09/25/2021 22:07:17 09/25/19 22 09/25/2021 URINE CULTU REEVIN NE result 1 No growth Not Available [facility] ([facility]) [address] [place], [address], 09/25/2021 22:07:17 09/25/19 22 09/24/2021 urina lysis , dipst ick Leukocytes Modera te Not Available [place] Sole Stapler Welt [address] [place] [address] , [place], [address], 09/24/2021 09:11:16 09/25/19 22 09/24/2021 urina lysis , dipst ick Nitrite negati ve Not Available [place] Sole Stapler Welt [address] [place] [address] , [place], [address], 09/24/2021 09:11:16 09/25/19 22 09/24/2021 urina lysis , dipst ick Urobilinogen .2 Not Available [facility] ille Sole Stapler Welt [address] [place] [address] , [place], [address], 09/24/2021 09:11:16 09/25/19 22 09/24/2021 urina lysis , dipst ick Protein Negati ve Not Available [facility] [address] [place] [address] , [place], [address], 09/24/2021 09:11:16 09/25/19 22 09/24/2021 urina lysis , dipst ick pH 6.5 Not Available [facility]/[address] , [place], [address], 09/24/2021 09:11:16 09/25/19 22 09/24/2021 urina lysis , dipst ick Blood Modera te Not Available [facility]/[address] , [place], [address], 09/24/2021 09:11:16 09/25/19 22 09/24/2021 urina lysis , dipst ick Specific [place] 1.[address] [facility] Sole Stapler Welt [address] [place] [address] , [place], [address], 09/24/2021 09:11:16 09/25/19 22 09/24/2021 urina lysis , dipst ick Ketone Negati ve Not Available [facility] [address] [place] [address] , [place], [address], 09/24/2021 09:11:16 09/25/19 22 09/24/2021 urina lysis , dipst ick Bilirubin Negati ve Not Available [facility] [address] [place] [address] , [place], [address], 09/24/2021 09:11:16 09/25/19 22 09/24/2021 urina lysis , dipst ick Glucose Negati ve Not Available [place] S[facility] Stapler Welt [address] [place] [address] , [place], [address], 09/24/2021 09:11:16 09/25/19 22 09/24/2021 urina lysis , dipst ick Appearance Slight ly Cloudy Not Available [place] S[facility] Stapler Welt [address] [place] [address] , [place], [address], 09/24/2021 09:11:16 09/25/19 22 09/24/2021 urina lysis , dipst ick Color Yellow Not Available [place] Sole Stapler Welt [address] [place] [address] , [place], [address], 09/24/2021 09:11:16 01/13/20 22 01/14/2022 IGP,R FX APTIM A HPV ALL PTH diagnosis: Commen t NEGAT BALBINA FOR INTRA EPITH ELIAL LESIO N OR MAGGIE SMITH . PREDO RANDA CE OF [place] BACIL LI CONSI STENT WITH SHIFT IN VAGIN AL ARSLAN IS PRESE NT. Not Available [facility] ([facility]) [address], [place], [address], 01/14/2022 13:09:33 01/13/20 22 01/14/2022 IGP,R FX APTIM A HPV ALL PTH specimen adequacy: Commen t Satis facto ry for evalu ation . Endoc ervic al and/o r squam ous metap lasti c cells (endo cervi kim compo nent) are prese nt. Not Available [facility] ([facility]) [address], [place], [address], 01/14/2022 13:09:33 01/13/20 22 01/14/2022 IGP,R FX APTIM A HPV ALL PTH clinician provided ICD10: Commen t R87.6 19 Not Available [facility] ([facility]) [address] [place], [address], 01/14/2022 13:09:33 01/13/20 22 01/14/2022 IGP,R FX APTIM A HPV ALL PTH performed by: Alejandro Huston Not Available [facility] ([facility]) [address] [place], [address], 01/14/2022 13:09:33 01/13/20 22 01/14/2022 IGP,R FX APTIM A HPV ALL PTH . . Not Available [facility] ([facility]) [address] [place], [address], 01/14/2022 13:09:33 01/13/20 22 01/14/2022 IGP,R FX [...] ts do occur . Not Available [facility] ([facility]) [address] [place], [address], 01/14/2022 13:09:33 01/13/20 22 01/14/2022 IGP,R FX APTIM A HPV ALL PTH test methodology: Monae aldana This liqui d based ThinP rep(R ) pap test was scree vahe with the use of an image guide anatoliy glil. Not Available [facility] ([facility]) [address] [place], [address], 01/14/2022 13:09:33 01/13/20 22 01/14/2022 IGP,R FX APTIM A HPV ALL PTH . Commen t The HPV DNA refle x crite matthias were not met with this speci men resul t there fore, no HPV testi ng was perfo rmed. Not Available [facility] ([facility]) [address], [place], [address], 01/14/2022 13:09:33 01/13/20 22 01/12/2022 pregn arminda test, urine HCG negati ve Not Available [place] Sole Stapler Welt [address] [facility] , [place], [address], 01/12/2022 14:37:35 02/10/20 22 02/09/2022 CBC W/AUT O DIFFE RENTI AL note See Note Order ing Provi tata: Yolanda Ch (Appl eton) Not Available [address] , [place], [address], 02/09/2022 14:27:37 02/10/20 22 02/09/2022 CBC W/AUT O DIFFE RENTI AL white blood cell 8.4 10e3/ uL 4.5-13 .0 normal Not Available [address] [place], [place], [address], 02/09/2022 14:27:37 02/10/20 22 02/09/2022 CBC W/AUT O DIFFE RENTI AL red blood cell 4.27 10e6/ uL 3.80-5 .10 normal Not Available [address] [place], [address], 02/09/2022 14:27:37 02/10/20 22 02/09/2022 CBC W/AUT O DIFFE RENTI AL hemoglobin 12.8 g/dL 11.5-1 5.3 normal Not Available [address] , [place], [address], 02/09/2022 14:27:37 02/10/20 22 02/09/2022 CBC W/AUT O DIFFE RENTI AL hematocrit 38.6 % 34.0-4 6.0 normal Not Available [address] [place], [place], [address], 02/09/2022 14:27:37 02/10/20 22 02/09/2022 CBC W/AUT O DIFFE RENTI AL mean cell volume 90 fL 78.0-9 8.0 normal Not Available [address] [place], [place], [address], 02/09/2022 14:27:37 02/10/20 22 02/09/2022 CBC W/AUT O DIFFE RENTI AL mean cell HGB 30.0 pg 25.0-3 5.0 normal Not Available [address] [place], [place], [address], 02/09/2022 14:27:37 02/10/20 22 02/09/2022 CBC W/AUT O DIFFE RENTI AL mean cell HGB concentratio n 33.2 g/dL 31.0-3 6.0 normal Not Available [address] [place], [place], [address], 02/09/2022 14:27:37 02/10/20 22 02/09/2022 CBC W/AUT O DIFFE RENTI AL red cell distribution width 13.3 % 11.0-1 5.0 normal Not Available [address] [place], [place], [address], 02/09/2022 14:27:37 02/10/20 22 02/09/2022 CBC W/AUT O DIFFE RENTI AL platelet count 223 10e3/ uL 150-40 0 normal Not Available [address] [place], [place], [address], 02/09/2022 14:27:37 02/10/20 22 02/09/2022 CBC W/AUT O DIFFE RENTI AL immature granulocyte % 0 0-1 normal Not Available [address] , [place], [address], 02/09/2022 14:27:37 02/10/20 22 02/09/2022 CBC W/AUT O DIFFE RENTI AL neutrophil % 71 % 35-75 normal Not Available [address] , [place], [address], 02/09/2022 14:27:37 02/10/20 22 02/09/2022 CBC W/AUT O DIFFE RENTI AL lymphocyte % 23 % 10-50 normal Not Available [address] , [place], [address], 02/09/2022 14:27:37 02/10/20 22 02/09/2022 CBC W/AUT O DIFFE RENTI AL monocyte % 6 % 0-15 normal Not Available [address] , [place], [address], 02/09/2022 14:27:37 02/10/20 22 02/09/2022 CBC W/AUT O DIFFE RENTI AL eosinophil % 0 % 0-5 normal Not Available [address] [place], [place], [address], 02/09/2022 14:27:37 02/10/20 22 02/09/2022 CBC W/AUT O DIFFE RENTI AL basophil % 0 % 0-5 normal Not Available [address] , [place], [address], 02/09/2022 14:27:37 02/10/20 22 02/09/2022 CBC W/AUT O DIFFE RENTI AL immature granulocyte # 0.02 x1000 /uL 0-0.05 normal Not Available [address] , [place], [address], 02/09/2022 14:27:37 02/10/20 22 02/09/2022 CBC W/AUT O DIFFE RENTI AL neutrophil # 5.90 x1000 /uL 1.50-8 .00 normal Not Available [address] , [place], [address], 02/09/2022 14:27:37 02/10/20 22 02/09/2022 CBC W/AUT O DIFFE RENTI AL lymphocyte # 1.92 x1000 /uL 1.20-5 .20 normal Not Available [address] , [place], [address], 02/09/2022 14:27:37 02/10/20 22 02/09/2022 CBC W/AUT O DIFFE RENTI AL monocyte # 0.49 x1000 /uL 0.40-0 .90 normal Not Available [address] [place], [place], [address], 02/09/2022 14:27:37 02/10/20 22 02/09/2022 CBC W/AUT O DIFFE RENTI AL eosinophil # 0.02 x1000 /uL 0.00-0 .50 normal Not Available [address] [place], [place], [address], 02/09/2022 14:27:37 02/10/20 22 02/09/2022 CBC W/AUT O DIFFE RENTI AL basophil # 0.02 x1000 /uL 0.00-0 .30 normal Not Available [address] , [place], [address], 02/09/2022 14:27:37 02/10/20 22 02/09/2022 CBC W/AUT O DIFFE RENTI AL NRBC automated 0.0 /100_ WBC Not Available [address] , [place], [address], 02/09/2022 14:27:37 02/10/20 22 02/09/2022 CBC W/AUT O DIFFE SIMÓN VOGT performing lab see note ML - [facility] [address] [facility] [address] Not Available [address] , [place], [address], 02/09/2022 14:27:37 02/10/20 22 02/09/2022 COMP METAB OLIC PANEL note See Note Order ing Provi tata: Yolanda Ch (Appl eton) Not Available [address] , [place], [address], 02/09/2022 14:41:10 02/10/20 22 02/09/2022 COMP METAB OLIC PANEL sodium 138 mmol/ L 136-14 5 normal Not Available [address] , [place], [address], 02/09/2022 14:41:10 02/10/20 22 02/09/2022 COMP METAB OLIC PANEL potassium 4.1 mmol/ L 3.5-5. 1 normal Not Available [address] , [place], [address], 02/09/2022 14:41:10 02/10/20 22 02/09/2022 COMP METAB OLIC PANEL chloride 103 mmol/ L 98-107 normal Not Available [address] , [place], [address], 02/09/2022 14:41:10 02/10/20 22 02/09/2022 COMP METAB OLIC PANEL carbon dioxide 26 mmol/ L 24-33 normal Not Available [address] , [place], [address], 02/09/2022 14:41:10 02/10/20 22 02/09/2022 COMP METAB OLIC PANEL anion gap 13.1 mmol/ L 10-20 normal Not Available [address] , [place], [address], 02/09/2022 14:41:10 02/10/20 22 02/09/2022 COMP METAB OLIC PANEL glucose 86 mg/dL 70-99 normal Not Available [address] [place], [place], [address], 02/09/2022 14:41:10 02/10/20 22 02/09/2022 COMP METAB OLIC PANEL blood urea nitrogen 12 mg/dL 7-18 normal Not Available [address] , [place], [address], 02/09/2022 14:41:10 02/10/20 22 02/09/2022 COMP METAB OLIC PANEL creatinine 1.06 mg/dL 0.55-1 .02 high Not Available [address] [place], [place], [address], 02/09/2022 14:41:10 02/10/20 22 02/09/2022 COMP METAB OLIC PANEL BUN/creatini ne ratio 11 12-20 low Not Available [address] [place], [place], [address], 02/09/2022 14:41:10 02/10/20 22 02/09/2022 COMP METAB OLIC PANEL total protein 7.8 g/dL 6.4-8. 2 normal Not Available [address] , [place], [address], 02/09/2022 14:41:10 02/10/20 22 02/09/2022 COMP METAB OLIC PANEL albumin 4.0 g/dL 3.4-5. 0 normal Not Available [address] [place], [address], 02/09/2022 14:41:10 02/10/20 22 02/09/2022 COMP METAB OLIC PANEL globulin 3.8 g/dL 1.5-4. 0 normal Not Available [address] [place], [address], 02/09/2022 14:41:10 02/10/20 22 02/09/2022 COMP METAB OLIC PANEL albumin/glob ulin ratio 1.1 0.5-2. 0 normal Not Available [address] [place], [address], 02/09/2022 14:41:10 02/10/20 22 02/09/2022 COMP METAB OLIC PANEL calcium 9.4 mg/dL 8.5-10 .1 normal Not Available [address] , [place], [address], 02/09/2022 14:41:10 02/10/20 22 02/09/2022 COMP METAB OLIC PANEL osmolality serum calculated 274 mOsm/ kg 272-28 8 normal Not Available [address] [place], [address], 02/09/2022 14:41:10 02/10/20 22 02/09/2022 COMP METAB OLIC PANEL glom filtr rate (estimated) > 60 mL/mi n >60 normal Not Available [address] [place], [address], 02/09/2022 14:41:10 02/10/20 22 02/09/2022 COMP METAB OLIC PANEL GFR est (if -amer ican) > 60 mL/mi n >60 normal Not Available [address] [place], [address], 02/09/2022 14:41:10 02/10/20 22 02/09/2022 COMP METAB OLIC PANEL bilirubin total 0.4 mg/dL 0.2-1. 0 normal Use of this assay is not recom maxim d for patie nts under going treat ment with Eltro mbopa g due to the poten tial for false ly eleva idris resul ts. Not Available [address] , [place], [address], 02/09/2022 14:41:10 02/10/20 22 02/09/2022 COMP METAB OLIC PANEL SGOT/AST 12 U/L 15-37 low Not Available [address] [place], [address], 02/09/2022 14:41:10 02/10/20 22 02/09/2022 COMP METAB OLIC PANEL SGPT/ALT 18 U/L 14-59 normal Not Available [address] , [place], [address], 02/09/2022 14:41:10 02/10/20 22 02/09/2022 COMP METAB OLIC PANEL alkaline phosphatase total 35 U/L 46-116 low Not Available [address] , [place], [address], 02/09/2022 14:41:10 02/10/20 22 02/09/2022 COMP METAB OLIC PANEL performing lab see note - [facility] R [address] [facility] [address] Not Available [address] [place], [address], 02/09/2022 14:41:10 02/10/20 22 02/09/2022 URINA LYSIS COMPL ETE note See Note Order ing Provi tata: Yolanda Ch (Appl eton) Not Available [address] [place], [address], 02/09/2022 14:42:16 02/10/20 22 02/09/2022 URINA LYSIS COMPL ETE UA method of collection CLEAN CATCH Not Available [address] [place], [place], [address], 02/09/2022 14:42:16 02/10/20 22 02/09/2022 URINA LYSIS COMPL ETE UA color LT YELLOW yellow Not Available [address] , [place], [address], 02/09/2022 14:42:16 02/10/20 22 02/09/2022 URINA LYSIS COMPL ETE UA appearance SL.MICHELE UDY clear Not Available [address] , [place], [address], 02/09/2022 14:42:16 02/10/20 22 02/09/2022 URINA LYSIS COMPL ETE UA glucose dipstick NEGATI VE negati ve Not Available [address] [place], [place], [address], 02/09/2022 14:42:16 02/10/20 22 02/09/2022 URINA LYSIS COMPL ETE UA bilirubin dipstick NEGATI VE negati ve Not Available [address] [place], [place], [address], 02/09/2022 14:42:16 02/10/20 22 02/09/2022 URINA LYSIS COMPL ETE UA ketone dipstick NEGATI VE negati ve Not Available [address] [place], [address], 02/09/2022 14:42:16 02/10/20 22 02/09/2022 URINA LYSIS COMPL ETE UA specific gravity 1.010 1.005- 1.030 normal Not Available [address] [place], [address], 02/09/2022 14:42:16 02/10/20 22 02/09/2022 URINA LYSIS COMPL ETE UA blood dipstick 3+ negati ve abnormal Not Available [address] [place], [address], 02/09/2022 14:42:16 02/10/20 22 02/09/2022 URINA LYSIS COMPL ETE UA pH dipstick 7.0 5.0-9. 0 normal Not Available [address] [place], [address], 02/09/2022 14:42:16 02/10/20 22 02/09/2022 URINA LYSIS COMPL ETE UA protein dipstick NEGATI VE negati ve Not Available [address] [place], [address], 02/09/2022 14:42:16 02/10/20 22 02/09/2022 URINA LYSIS COMPL ETE UA urobilinogen dipstick NEGATI VE mg/dL <1 Not Available [address] , [place], [address], 02/09/2022 14:42:16 02/10/20 22 02/09/2022 URINA LYSIS COMPL ETE UA nitrite dipstick NEGATI VE negati ve Not Available [address] [place], [address], 02/09/2022 14:42:16 02/10/20 22 02/09/2022 URINA LYSIS COMPL ETE UA leukocyte esterase dipstick 2+ negati ve abnormal Not Available [address] [place], [address], 02/09/2022 14:42:16 02/10/20 22 02/09/2022 URINA LYSIS COMPL ETE UA RBC 0-5 RBC/h pf none seen abnormal Not Available [address] , [place], [address], 02/09/2022 14:42:16 02/10/20 22 02/09/2022 URINA LYSIS COMPL ETE UA WBC 0-5 WBC/h pf 0-5 Not Available [address] , [place], [address], 02/09/2022 14:42:16 02/10/20 22 02/09/2022 URINA LYSIS COMPL ETE UA epithelial cells 21-30 SQUAMO US epi/h pf 0-5 abnormal Not Available [address] , [place], [address], 02/09/2022 14:42:16 02/10/20 22 02/09/2022 URINA LYSIS COMPL ETE UA bacteria 1+ none seen abnormal Not Available [address] , [place], [address], 02/09/2022 14:42:16 02/10/20 22 02/09/2022 URINA LYSIS COMPL ETE UA mucus NONE SEEN none seen Not Available [address] , [place], [address], 02/09/2022 14:42:16 02/10/20 22 02/09/2022 URINA LYSIS COMPL ETE UA amorphous sediment NONE SEEN none seen Not Available [address] , [place], [address], 02/09/2022 14:42:16 02/10/20 22 02/09/2022 URINA LYSIS COMPL ETE comment 1 >20 EPI'S No Cultu re Perfo rmed. Speci men faile d Refle x Cultu re Crite matthias. Not Available [address] [place], [address], 02/09/2022 14:42:16 02/10/20 22 02/09/2022 URINA LYSIS COMPL ETE performing lab see note - [facility] R [address] [facility] [address] Not Available [facility] [address], [place], [address], 02/09/2022 14:42:16 07/20/19 23 07/23/2022 IGP, APTIM A HPV, RFX 16/18 ,45 HPV aptima Negati ve negati ve This nucle ic acid ampli ficat ion test detec ts fourt een high- risk HPV types (16,1 8,31, 33,35 ,39,4 5,51, 52,56 ,58,5 9,66, 68) witho ut diffe renti ation . Not Available [facility] (Lab) [id number] [address], [place], [address], 07/25/2022 13:07:39 07/20/19 23 07/25/2022 IGP, APTIM A HPV, RFX 16/18 ,45 diagnosis: Commen t NEGAT BALBINA FOR INTRA EPITH ELIAL LESIO N OR MAGGIE SMITH . PREDO MINAN CE OF [place] BACIL LI CONSI STENT WITH SHIFT IN VAGIN AL ARSLAN IS PRESE NT. Not Available [facility] (Lab) [id number] [address], [place], [address], 07/25/2022 13:07:39 07/20/19 23 07/25/2022 IGP, APTIM A HPV, RFX 16/18 ,45 specimen adequacy: Commen t Satis facto ry for evalu ation . No endoc ervic al compo nent is ident ified . Not Available [facility] (Lab) [id number] [facility] [address], [place], [address], 07/25/2022 13:07:39 07/20/19 23 07/25/2022 IGP, APTIM A HPV, RFX 16/18 ,45 clinician provided ICD10: Monae aldana Z12.4 Not Available [facility] (Lab) [id number] [place] [address], [place], [address], 07/25/2022 13:07:39 07/20/19 23 07/25/2022 IGP, APTIM A HPV, RFX 16/18 ,45 performed by: Monae Garcia Sr, Cytojovan aldana (ASCP ) Not Available [facility] (Lab) [address] [address], [place], [address], 07/25/2022 13:07:39 07/20/19 23 07/25/2022 IGP, APTIM A HPV, RFX 16/18 ,45 . . Not Available [facility] (Lab) [id number] [place] [address], [place], [address], 07/25/2022 13:07:39 07/20/19 23 07/25/2022 IGP, APTIM [...] Not Available [facility] (Lab) [id number] [address] [address], [place], [address], 07/25/2022 13:07:39 07/20/19 23 07/25/2022 IGP, APTIM A HPV, RFX 16/18 ,45 test methodology: Monae aldana This liqui d based ThinP rep(R ) pap test was scree vahe with the use of an image guide anatoliy lance Not Available [facility] (Lab) [id number] [place] [address], [place], [address], 07/25/2022 13:07:39 07/20/19 23 07/25/2022 IGP, APTIM A HPV, RFX 16/18 ,45 HPV genotype reflex Commen t Crite matthias not met, HPV Genot ype not perfo rmed. Not Available [facility] ([facility]) [address], [place], [address], 07/25/2022 13:07:39 01/06/20 23 01/06/2023 NUSWA B VAGIN ITIS PLUS (VG+) atopobium vaginae Low - 0 score Not Available [facility] ([facility]) [address] [place], [address], 01/11/2023 10:36:49 01/06/20 23 01/06/2023 NUSWA B VAGIN ITIS PLUS (VG+) bvab 2 Modera te - 1 score Not Available [facility] ([facility]) [address], [place], [address], 01/11/2023 10:36:49 01/06/20 23 01/06/2023 NUSWA B [...] Drug Admin istra tion. Not Available [facility] ([facility]) [address] [place], [address], 01/11/2023 10:36:49 01/06/20 23 01/06/2023 NUSWA B VAGIN ITIS PLUS (VG+) bisi albicans, AVIVA Negati ve negati ve Not Available [facility] ([facility]) [address], [place], [address], 01/11/2023 10:36:49 01/06/20 23 01/06/2023 NUSWA B VAGIN ITIS PLUS (VG+) bisi glabrata, AVIVA Negati ve negati ve Not Available [facility] ([facility]) [address], [place], [address], 01/11/2023 10:36:49 01/06/20 23 01/06/2023 NUA B VAGIN ITIS PLUS (VG+) trich vag by AVIVA Negati ve negati ve Not Available [facility] ([facility]) [address], [place], [address], 01/11/2023 10:36:49 01/06/20 23 01/06/2023 NUSWA B VAGIN ITIS PLUS (VG+) chlamydia trachomatis, AVIVA Negati ve negati ve Not Available [facility] ([facility]) [address], [place], [address], 01/11/2023 10:36:49 01/06/20 23 01/06/2023 NUSWA B VAGIN ITIS PLUS (VG+) neisseria gonorrhoeae, AVIVA Negati ve negati ve Not Available [facility] ([facility]) [address] [place], [address], 01/11/2023 10:36:49 01/06/20 23 01/06/2023 TSH+F REE T4 TSH 0.400 uIU/m L 0.450- 4.500 below low normal Not Available [facility] ([facility]) [address] [place], [address], 01/11/2023 10:36:51 01/06/20 23 01/06/2023 TSH+F REE T4 T4,free(dire ct) 1.17 NG/dL 0.82-1 .77 Not Available [facility] ([facility]) [address] [place], [address], 01/11/2023 10:36:51 01/06/20 23 01/06/2023 TESTO STERO NE,FR EE AND TOTAL testosterone 46 NG/dL 13- Not Available [facility] ([facility]) [address], [place], [address], 01/11/2023 10:36:51 01/06/2001/11/2023 TESTO STERO NE,FR EE AND TOTAL free testosterone (direct) 1.0 pg/mL 0.0-4. 2 Not Available [facility] ([facility]) [address], [place], [address], 01/11/2023 10:36:51 01/06/20 23 01/06/2023 HIV AB/P2 4 AG WITH REFLE X HIV Ab/P24 Ag screen Non Reacti ve non reacti ve HIV Negat balbina HIV-1 /HIV- 2 antib odies and HIV-1 p24 antig en were NOT detec idris. There is no labor atory evide nce of HIV infec tion. Not Available [facility] ([facility]) [address], [place], [address], 01/11/2023 10:36:52 01/06/20 23 01/06/2023 RPR, RFX QN RPR/C ONFIR M TP RPR Non Reacti ve non reacti ve Not Available [facility] ([facility]) [address], [place], [address], 01/11/2023 10:36:53 01/06/20 23 01/06/2023 HCV ANTIB [...] e HCV infec tion. Not Available [facility] ([facility]) [address], [place], [address], 01/11/2023 10:36:54 01/06/20 23 01/06/2023 HEMOG LOBIN A1C hemoglobin A1C 4.7 % 4.8-5. 6 below low normal Predi abete s: 5.7 - 6.4 Diabe danilo: >6.4 Glyce morena contr ol for adult s with diabe danilo: <7.0 Not Available [facility] ([facility]) [address], [place], [address], 01/11/2023 10:36:55 01/06/2001/06/2023 HBSAG SCREE N HBsAg screen Negati ve negati ve Not Available [facility] ([facility]) [address], [place], [address], 01/11/2023 10:36:56 01/07/2001/06/2023 IGP, APTIM A HPV, RFX 16/18 ,45 HPV aptima Negati ve negati ve This nucle ic acid ampli ficat ion test detec ts fourt een high- risk HPV types (16,1 8,31, 33,35 ,39,4 5,51, 52,56 ,58,5 9,66, 68) witho ut diffe renti ation . Not Available [facility] ([facility]) [address], [place], [address], 01/07/2023 12:13:17 01/07/20 23 01/07/2023 IGP, APTIM A HPV, RFX 16/18 ,45 diagnosis: Commen t NEGAT BALBINA FOR INTRA EPITH ELIAL LESIO N OR MALIG LUIS . SPECI MEN REPRO CESSE D FOR INTER PRETA TION USING GLACI AL ACETI C ACID (GAA) . Not Available [facility] ([facility]) [address] [place], [address], 01/07/2023 12:13:17 01/07/20 23 01/07/2023 IGP, APTIM A HPV, RFX 16/18 ,45 specimen adequacy: Monae aldana Satis facto ry for evalu ation . Endoc ervic al and/o r squam ous metap lasti c cells (endo cervi kim compo nent) are prese nt. Areas of parti ally obscu ring blood are prese nt. Not Available [facility] ([facility]) [address] [place], [address], 01/07/2023 12:13:17 01/07/2001/07/2023 IGP, APTIM A HPV, RFX 16/18 ,45 clinician provided ICD10: Monae aldana Z11.3 N93.9 N93.0 Not Available [facility] ([facility]) [address] [place], [address], 01/07/2023 12:13:17 01/07/20 23 01/07/2023 IGP, APTIM A HPV, RFX 16/18 ,45 performed by: Monae jesus, Cytot stefany aldana (ASCP ) Not Available [facility] ([facility]) [address] [place], [address], 01/07/2023 12:13:17 01/07/2001/07/2023 IGP, APTIM A HPV, RFX 16/18 ,45 . . Not Available [facility] ([facility]) [address] [place], [address], 01/07/2023 12:13:17 01/07/20 23 01/07/2023 IGP, APTIM [...] ts do occur . Not Available [facility] ([facility]) [address], [place], [address], 01/07/2023 12:13:17 01/07/20 23 01/07/2023 IGP, APTIM A HPV, RFX 16/18 ,45 test methodology: Remaen t This liqui d based ThinP rep(R ) pap test was scree vahe with the use of an image guide anatoliy gill. Not Available [facility] ([facility]) [address], [place], [address], 01/07/2023 12:13:17 01/07/20 23 01/07/2023 IGP, APTIM A HPV, RFX 16/18 ,45 HPV genotype reflex Commen t Crite matthias not met, HPV Genot ype not perfo rmed. Not Available [facility] ([facility]) [address] [place], [address], 01/07/2023 12:13:17 01/10/20 23 01/09/2023 pregn arminda test, urine HCG negati ve Not Available [facility] [address] [facility] , [place], [address], 01/09/2023 16:30:54 10/17/19 22 10/16/2021 CT, abdom en + pelvi s, w/o contr ast No observ ation record ed. [email or web address] [facility] ([facility]) [address], [place], [place], [address], 10/18/2021 23:08:20 11/22/19 22 11/21/2021 XR, chest , 2 view No observ ation record ed. [address], [place], [address], 11/25/2021 11:38:59 11/22/19 22 11/21/2021 imagi ng/di agnos tic resul t No observ ation record ed. [address], [place], [address], 11/25/2021 11:38:47 Result Notes None recorded. Problems Name Problem SNOMED Code Status Onset Date Resolution Date Notes Provider Name and Address Organization Details Recorded Time Anemia of pregnanc y 19377361 Completed 09/25/2019 Removal Reason: resolved Zainab Ch MD [address], [place], [address] , [place] [facility] 17:43:51 Body mass index 30+ - obesity 407552389 Completed 201709/24/2021 Araseli Mills APRN [address], [place], [address] , [place] [facility] 10:23:33 Polycyst ic ovaries Active 2017 Amelie Mayfield null, [place] - [facility] 2 13:09:23 Oligomen orrhea 71820278 Completed 201708/16/2021 Zainab Ch MD [address], [place], [address] , [place] [facility] 19:31:58 Abnormal uterine bleeding 63163404207 100 Completed 201708/16/2021 Zainab Ch MD [address], [place], [address] , [place] [facility] 19:31:46 Hidraden itis 47702155 Active 2017 Amelie May[place] null[place] [facility] 13:09:13 Pelvic floor dysfunct ion 435564482 Active 2018 Amelie May[place] [facility] 13:09:18 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 a 399155810 Active 2019 Amelie [place] [facility] 13:08:57 History of SARS-CoV -2 78963612277 3341935 Completed 202010/01/2020 Bibi Gordon null, [place] [facility] 1 11:37:52 [facility] hyperten morelia 25184541 Active 2020 Amelie [place] [facility] 13:09:07 Migraine 93573252 Active 2020 Amelie [place] [facility] 13:09:17 Gastroes ophageal reflux disease 166195907 Active 2020 Amelie [place] [facility] 13:09:11 Chronic constipa tion 700017693 Active 2020 Amelie [place] [facility] 13:09:01 Dysuria 01557193 Active 2021 Amelie [place] [facility] 13:09:03 Body mass index 40+ - severely obese 341697023 Active 2021 Amelie [place] [facility] 13:08:55 Morbid obesity 309377494 Active 2022 Ag Crouch RN [address], [place], [address] , [place] [facility] 14:17:15 Problem Notes None recorded. Procedures Surgical History Date Name Laterality Status Provider Name and Address Organization Details Recorded Time 03/08/20 Colposcopy cancelled Amelie Mayfield [place] - [facility] 01/27/20 09:08:30 01/06/20 Date of Last Pap Smear completed Zainab Ch MD [address], [place], [address], [place] [facility] 10/30/2023 19:57:44 01/27/20 Colposcopy completed Zainab Ch MD [address], [place], [address], [place] [facility] 2021 20:07:34 01/27/20 21 Colposcopy completed Araseli Mills APRN [address], [place], [address], [place] [facility] 09/24/2021 09:21:24 01/27/20 21 Colposcopy completed Fatuma Tsai [place] - [facility] 01/11/2022 10:21:09 07/18/19 21 Date of Last Colonoscopy completed Monica Vásquez [place] - [facility] 08/12/2021 14:09:13 09/11/19 20 LEEP Procedure completed Zainab Ch MD [address], [place], [address], [place] [facility] 09/11/2019 16:00:11 09/11/19 20 [...] Name and Address Organization Details Recorded Time [id number] Reglan medicatio n other moderate Not available [...] Updated DateTime 07/20/2022 167.64 cm 40.8 kg/m2 775394.87 g 116/72 mm[Hg] Monica Vásquez [place] [facility] 07/20/2022 16:34:38 Date Recorded Body height Body mass index (BMI) Body weight Pain severity - 0-10 verbal numeric rating [Score] - Reported Systolic And Diastolic Provider Name and Address Organization Details Last Updated DateTime 09/24/2021 167.64 cm 40.2 kg/m2 854194.5 g 0 116/78 mm[Hg] Erinjackeline Gibbons [facility] 2 09:12:59 Date Recorded Body height Body mass index (BMI) Body weight Systolic And Diastolic Provider Name and Address Organization Details Last Updated DateTime 01/05/2023 167.64 cm 40 kg/m2 534235.91 g 118/82 mm[Hg] Amelie Mayfield [facility] 01/05/2023 14:16:13 Date Recorded Body height Body mass index (BMI) Body weight Pain severity - 0-10 verbal numeric rating [Score] - Reported Systolic And Diastolic Provider Name and Address Organization Details Last Updated DateTime 01/12/2022 167.64 cm 40.2 kg/m2 608941.5 g 0 104/62 mm[Hg] Erincody Gibbons [facility] 2 14:34:42 Date Recorded Body height Body mass index (BMI) Body weight Systolic And Diastolic Provider Name and Address Organization Details Last Updated DateTime 02/09/2022 167.64 cm 39.1 kg/m2 088867.35 g 126/78 mm[Hg] Amelie Mayfield [facility] 02/09/2022 13:07:43 Social History Question Answer Notes LastModified by Organizat ion Details LastModified Time Tobacco Smoking Status Former Smoker Monica wilkinson, [place] - [facility] 07/20/2022 16:27:52 Able To Swim? [...] COVID-19 While That Case Was Ill? No [email or web address] Information not available 02/09/2022 In The 14 Days Before Symptom Onset, Have You Had Close Contact With A Person Who Is Under Investigation For COVID-19 While That Person Was Ill? No Information not available 02/09/2022 Have You Been [...] Or The Highest Degree You Have Received? [id number] Information not available 01/30/2018 How Many Days [...] Much Tobacco Do You Smoke? 0.5 PPD [email or web address] Information not available 02/09/2022 General Stress Level [...] used smokeless tobacco? Never used smokeless tobacco [email or web address] Information not available 12/05/2020 Are you currently employed? Yes Information not available 09/22/2017 Do you have transportation difficulties? No Information not available 08/12/2021 Urinary incontinence assessment performed? No Information not available 01/30/2018 Are you able to care for yourself independently? Yes Information not available 09/22/2017 Do you have difficulty dressing, bathing, grooming, or toileting? No Information not available 01/30/2018 Do you [...] t available 08/12/2021 Are you able to walk independently without assistance or assistive devices? [email or web address] Information not available 09/22/2017 Do you have difficulty doing errands alone? No Information not available 01/30/2018 What is your occupation? [employer] Information not available 07/20/2022 Mental Status Question Answer Note LastModified by Organizat ion Details LastModified Time Do you feel stressed (tense, restless, nervous, or anxious, or unable to sleep at night)? [id number] Information not available 08/12/2021 Do you have [...] Not available 2018 15:18:11 Mother Uterine leiomyoma [email or web address] Not available 2021 09:10:51 Medical History Condition [...] colitis N Cerebrovascular Disease N Depression N Guillain[place] N Sleep Apnea N Aneurysm N Bronchitis [...] Diagnosis SNOMED-CT Code Diagnosis ICD10 Code Diagnosis IMO Codes Diagnosis Note [id number] HAILEY [place] [address] [place] [address] 09/22/2017 12:33:02 09/22/2017 12:51:30 Eustachian tube disorder 46277780 H69.90 [id number] Naheed Hidalgo APRN [address] [place] [address] 01/03/2018 08:05:15 01/03/2018 08:45:21 Hypothyroidism 09187876 E03.9 Anemia 077202007 D64.9 Vitamin D deficiency 347 81795 E55.9 [id number] MD John Blount [employer] [address] [place] [address] [place] [address] 01/30/2018 15:07:25 01/30/2018 15:58:53 Pain in pelvis 27188657 R10.2 Venereal d isease screening 684903287 Z11.3 Oligomenorrhea 84826552 N91.5 Polycystic ovaries 01103 008 E28.2 Hidradenit is suppurativa 87032302 L73.2 [id number] MD John Blount [employer] [address] [place] [address] [place] [address] 02/20/2018 13:18:56 02/20/2018 14:22:33 Oligomenorrhea 73321334 N91.5 Polycystic ovaries 56972 008 E28.2 Pain in pelvis 75618300 R10.2 [id number] MD John Blount [employer] [address] [place] [address] [place] [address] 05/02/2018 09:02:13 05/02/2018 09:25:51 Abnormal uterine bleeding 5659694807 9100 N93.9 Oligomenorrhea 08707941 N91.5 Polycystic ovaries 31690 008 E28.2 Hidradenit is suppurativa 35237876 L73.2 [id number] Naheed Hidalgo APRN [address] [place] [address] 06/06/2018 09:51:55 06/06/2018 11:19:11 Acute bronchitis 04082273 J20.9 Cough 66676760 R05 Fatigue 56719276 R53.83 [id number] Sue Anglin APRN [address] [place] [address] 06/28/2018 12:48:18 06/28/2018 17:16:50 Acne 34547884 L70.9 We discussed support measures.P atient provided with printed informatio n on preventati ve and support measures for acne.We discussed starting Spironolac tone and will re-evaluat e in the future. Hidradenit is suppurativa 64444423 L73.2 Patient pleased with the current control with her H.S. She believes that the surgical wash is helping a great deal and will continue use. [id number] MD John Blount [employer] [address] [place] [address] [place] [address] 09/11/2018 13:52:08 09/11/2018 14:32:49 Abnormal uterine bleeding 7242760705 9100 N93.9 Hidradenitis 39549502 L7 3.2 Polycystic ovaries 37948 008 E28.2 Venereal d isease screening 232795362 Z11.3 [id number] MD John Blount [employer] [address] [place] [address] [place] [address] 11/02/2018 13:12:35 11/02/2018 13:46:27 Vaginal discharge 240039470 N89.8 Candidiasis of vagina 72 128921 B37.3 [id number] Naheed Hidalgo APRN [address] [place] [address] 11/08/2018 14:48:45 11/08/2018 15:34:32 Fatigue 21059315 R53.83 Memory impairment 960993 006 R41.3 Dizziness and giddiness 954570774 R42 [id number] Naheed Hidalgo APRN [address] [place] [address] 11/21/2018 09:59:56 11/21/2018 15:29:14 Vitamin B12 deficiency (non anemic) 29447205 E53.8 Vitamin D deficiency 347 88697 E55.9 [id number] Naheed Hidalgo APRN [address] [place] [address] 01/10/2019 16:00:28 01/10/2019 16:27:14 Acne 84432324 L70.9 Memory impairment 180112 006 R41.3 Chronic constipation 236 599359 K59.09 Food intolerance 7906978 0 K90.49 Impairment of balance 38 2682040 R26.89 Paresthesi a of lower extremity 554345360 R20.2 [id number] MD John Blount [employer] [address] [place] [address] [place] [address] 03/14/2019 14:57:40 03/14/2019 15:48:16 Routine gynecologic examination done 2347570871 9101 Z01.419 Depression screening 171 540475 Z13.89 PHQ 9 negative Diet education 92061922 Z71.3 Counseling 649716090 Z71 .82 Exercise counsellin g. Patient encouraged to exercise 30 minutes 5 days a week. Examinatio n of blood pressure 772776069 Z01.30 Normotensi ve Screening for malignant neoplasm of cervix 074359133 Z12.4 Pap collected Vaginal discharge 490090 006 N89.8 Pelvic ward or dysfunction 627531081 M62.9 Polycystic ovaries 29892 008 E28.2 Family his tory of breast cancer 143302385 Z80.3 [id number] MD John Blount [employer] [address] [place] [address] [place] [address] 08/21/2019 10:53:04 08/21/2019 11:54:03 Cervical intraepithelial neoplasia grade III with severe dysplasia 404765905 D06.9 [id number] MD John Blount [employer] [address] [place] [address] [place] [address] 09/11/2019 14:52:56 09/11/2019 15:49:37 Cervical intraepithelial neoplasia grade III with severe dysplasia 200468684 D06.9 [id number] MD John Blount [employer] [address] [place] [address] [place] [address] 09/25/2019 13:05:49 09/25/2019 13:21:20 History of loop electrosurgical excision procedure 7935298043 9102 Z98.890 Cervical intraepithelial neoplasia grade III with severe dysplasia 908965595 D06.9 [id number] MD John Blount [employer] [address] [place] [address] [place] [address] 11/08/2019 15:58:57 11/08/2019 16:26:39 Mass of left breast 5848100780 8191735 N63.20 [id number] MD John Blount [employer] [address] [place] [address] [place] [address] 02/20/2020 15:34:15 02/20/2020 16:34:29 Cervical intraepithelial neoplasia grade III with severe dysplasia 850161549 D06.9 [facility] 44199910 L70.9 [id number] MD John Blount [employer] [address] [place] [address] [place] [address] 06/18/2020 10:30:20 06/18/2020 11:34:32 Polycystic ovary syndrome 532760800 E28.2 Trying to conceive 35924 9001 Z31.9 History of loop electrosurgical excision procedure 0704405462 9102 Z98.507 [id number] MD John Blount [employer] [address] [place] [address] [place] [address] 09/29/2020 15:14:02 09/29/2020 16:25:12 Screening for malignant neoplasm of cervix 092173497 Z12.4 Pap collected Cervical intraepithelial neoplasia grade III with severe dysplasia 042910247 D06.9 Dyspareunia 05446416 N94 .10 Mass of left breast 1224 782405 7374457 N63.20 Family his tory of breast cancer 791437913 Z80.3 [id number] Miranda Pa APRN [address] [place] [address] 10/01/2020 11:19:30 10/01/2020 12:03:02 Essential hypertension 85365048 I10 Advised to check BP daily at home. Follow-up in 1 month. Fatigue 17536020 R53.83 Migraine 29563408 G43.90 9 [id number] Miranda Pa APRN [address] [place] [address] 10/17/2020 08:06:55 10/17/2020 08:38:56 Essential hypertension 98839503 I10 Advised to check BP daily at home. Follow-up in 1 month. Migraine 08996890 G43.90 9 She has not used the sumatripta n yet, only Tylenol PRN. Body mass index 30+ - obesity 530076918 Z68.38 Hidradenit is suppurativa 67940622 L73.2 [id number] Miranda Pa APRN [address] [place] [address] 11/04/2020 08:18:10 11/04/2020 09:01:54 Migraine 44036823 G43.909 Dizziness 529276422 R42 Labs previously done at last visit were normal. Blurring o f visual image 803789578 H53.8 Neck pain 71579555 M54.2 [id number] Miranda Pa APRN [address] [place] [address] 12/05/2020 08:15:03 12/05/2020 09:06:31 Edema of lower extremity 370510285 R60.0 Resolved - advised on elevation of legs, adequate hydration, reduced sodium intakes, compressio n stockings PRN. F/U if worsens. Low back pain 891457135 M54.5 Thoracic back pain 61621 8004 M54.6 Migraine 60515275 G43.90 9 Advised to F/U with Neuro as scheduled. F/U in office needed before then. [id number] Miranda Pa APRN [address] [place] [address] 12/09/2020 13:55:58 12/09/2020 14:38:24 Body mass index 30+ - obesity 396087792 Z68.39 Chest pain 47776123 R07. 9 Labs performed previously . Will refer to Cardiology today. F/U in office if symptoms worsen, or go to ER for any chest pain lasting longer than 5 minutes or increased shortness of breath. Already had recent labs October 2020 - no need for additional labs today. Palpitations 46257798 R0 0.2 [id number] MD Mere [place] [employer] [address] [place] [address] [place] [address] 01/26/2021 13:12:53 01/26/2021 14:39:11 Abnormal cervical Papanicolaou smear 055026974 R87.619 Screening for malignant neoplasm of cervix 090032760 Z12.4 [id number] MD Mere [place] [employer] [address] [place] [address] [place] [address] 04/15/2021 08:58:03 04/15/2021 09:18:57 Abnormal cervical Papanicolaou smear 691975311 R87.619 Vaginal discharge 183040 006 N89.8 Dyspareunia 61206076 N94 .10 [id number] Corry Sears APRN [address] [place] [address] 06/18/2021 09:38:21 06/18/2021 10:27:06 Abdominal pain 66030758 R10.9 Depression screening 171 974494 Z13.31 Gastroesop hageal reflux disease 280070170 K21.9 Chronic constipation 236 798228 K59.09 Abdominal bloating 50451 9008 R14.0 Nausea 268113022 R11.0 Body mass index 40+ - severely obese 511298314 Z68.41 [id number] MD John Blount [employer] [address] [place] [address] [place] [address] 08/12/2021 13:57:13 08/12/2021 14:45:12 Routine gynecologic examination done 3485235441 9101 Z01.419 Depression screening 171 004922 Z13.89 PHQ 9 negative Diet education 53127996 Z71.3 Counseling 491293080 Z71 .82 Exercise counsellin g. Patient encouraged to exercise 30 minutes 5 days a week. Examinatio n of blood pressure 153451343 Z01.30 Normotensi ve Vaccine de clined by patient 0884384028 02 Z28.21 Obesity 614565054 E66.9 Screening for malignant neoplasm of cervix 225674336 Z12.4 Hidradenit is suppurativa 93305046 L73.2 [id number] Luis Mitchell MD [address] [place] [address] 09/10/2021 14:58:29 09/10/2021 15:35:57 Pharyngitis 025329657 J02.9 [id number] Araseli Mills APRN [place] [employer] [address] [place] [address] [place] [address] 09/24/2021 08:40:43 09/24/2021 09:34:52 Dysuria 36044827 R30.9 Chronic constipation 236 854470 K59.09 Body mass index 40+ - severely obese 503634106 Z68.41 [id number] Alis Mays DO [place] [employer] [address] [place] [address] [place] [address] 01/12/2022 14:23:40 01/12/2022 15:14:15 Irregular periods 71607024 N92.6 Sterilizat ion requested 790563376 Z30.2 Abnormal c ervical Papanicolaou smear 654393900 R87.619 Chronic in terstitial cystitis [id number] N30.10 [id number] Zainab Ch MD [place] [employer] [address] [place] [address] SARAN Sanchez [id number] 02/09/2022 13:00:30 02/09/2022 13:30:25 Pre-surgery evaluation 140469854 Z01.818 Sterilizat ion requested 222894011 Z30.2 Contracept ion care management 228574847 Z30.9 Condyloma acuminata of vulva 543975377 A63.0 [id number] MD John Bl[place] [employer] [address] [place] [address] SARAN Sanchez [id number] 07/20/2022 16:00:19 07/20/2022 17:05:27 Routine gynecologic examination done [id number] 9101 Z01.419 Depression screening 171 658281 Z13.89 PHQ 9 negative Examinatio n of blood pressure 225929747 Z01.30 Normotensi ve Body mass index 40+ - severely obese 347335743 Z68.41 Screening for malignant neoplasm of cervix 583062486 Z12.4 Vaginal pain 45513098 R1 0.2 Dyspareunia 46273795 N94 .10 Sebaceous cyst of skin 387436184 L72.3 [id number] MD John Blount [employer] [address] [facility] SARAN Sanchez [id number] 01/05/2023 13:55:12 01/05/2023 14:44:41 Venereal disease screening 528169956 Z11.3 Postcoital bleeding 4888 0000 N93.0 Abnormal u terine bleeding 9226872679 9100 N93.9 Health Concerns Section Related Observation LastModified by Organization Detai ls LastModified Time None Recorded Concern Status LastModified by Organization Details LastModified Time None Recorded Advance Directives Directive N: Payers Insurance Date Sequence Insurance Name Policy Number Policy Mai Covered Member ID Mai Member ID Guarantor Name 04/23/2023 [place] [facility] Araceli Gill [place] [id number] Katy Gill [place] 01/12/2022 1 AETNA [facility] (MEDICAID HMO) Araceli [place] [id number] Katy Homero [place] 04/23/2023 1 [employer] [facility] (MEDICAID HMO) Araceli Gill [place] [id number] Katy Gill [place] 08/21/2019 1 *SELF PAY* Faby levin Homero [place] 02/10/2022 1 [id number] Katy Gill [place] [id number] Katy Gill [place] Notes Date Note Type [...] frequency, lots of pressure, cramping. Araseli Mills, [employer] [address], [place], [address], [place] - [facility] 09/24/2021 10:25:12 2 text/html [...] including dietary changes and OTC prelief. Alis wilkinson, [place] - [facility] 01/12/2022 15:06:27 2 text/html ROS [...] surgery. 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 She reports that she is in [...] depression/anxiety. Zainab Ch MD [address], [place], [address], [place] - [facility] 07/29/2022 13:27:41 3 text/html [...] Zainab Ch MD [address], [place], [address], [place] - [facility] 01/09/2023 16:33:00 OBGyn Episode Ob Episode Information Episode Created Date Number of Fetuses Patient Bloodtype Patient rh Status Prepregnancy Weight lbs Domestic Partner Domestic Partner Phone Father Name Traffic Operations Manager Status 01/31/20 18 1 CLOSED Fetus Data [...]
--- OUTSIDE RECORDS SUMMARY | 2025-05-22 22:01 | XMS_ITS | Clinical Summary ---
Author Organization Healthcare Address [address] [place] [address] Care Team Providers Care Automotive Porter Name Role Phone Miranda Pa HAILEY Primary [...] 2022 UKY-Cervical Cancer Screening 2025 UKY-HPV/Cotest 2025 IAS-MSPEV-59 Vaccine ( - season) 2025 UKY-Influenza Vaccine [...] age to complete this topic Insurance AETNA [facility] MEDICAID Care Teams Automotive Porter Relationship Specialty Start Date End Date Miranda Pa APRN [address] [facility] [place] [address] PCP - General 11/28/20
--- OUTSIDE RECORDS SUMMARY | 2025-05-22 22:01 | XMS_ITS | Clinical Summary ---
Author Organization [facility] Address [address] [place] [address] Care Team Providers Care Office Machine Servicer Name Role Phone Provider, No Known Primary [...] tablet Take 1 tablet by mouth Daily. Active MAGNESIUM GLYCINATE PO Take 400 mg [...] Description 04/18/2025 9:00 AM EDT Office Visit [facility] MATERNAL MEDICINE [address] [place] [address] Dominguez Deleon MD hydronephrosis during , antepartum, single or unspecified fetus (Primary Dx); Suspected problem with placenta not found; Vapes nicotine containing substance 04/18/2025 8:46 AM EDT - 04/18/2025 11:59 PM EDT Hospital Encounter [facility] US PER DIAG CTR [address] [place] [address] Marina Barrera DO Placenta, abnormal, [...] Procedure Name Priority Date/Time Associated Diagnosis Comments [facility] Routine 04/18/2025 9:59 AM EDT Placenta, abnormal, third trimester Large head , unspecified gestational age from Last 3 Months Results * [facility] (04/18/2025 9:59 AM EDT) Anatomical Region Laterality Modality Ultrasound 04/18/2025 9:16 AM EDT Narrative 04/18/2025 10:05 AM EDT PAT NAME: ARACELI RIOS [facility] REC#: [id number] DA: [id number] PAT GEND: F PAT TYPE: O EXAM JONATHAN: [id number] REF PHYS MARINA [place] Comparison Studies There [...] EFW (oz) 3 oz EFW by: Hadlock (EBE-CB-MT-FL) Extended Tibia 54.2 mm 32w 0d 51% Martine Fibula 52.3 mm 32w 1d 50% Martine Foot 63.3 mm 29% Chitty Radius 46.3 mm 33w 2d 58% Martine Ulna 51.8 mm 32w 5d 45% Martine Cav. septi pel. tr 7.8 mm Climatologist 6.8 mm CM 5.6 mm 10% Nicolaides [...] normal IVC: normal 3-vessel view: Appears normal 2-gbrtzz-wsliwzp view: Appears normal Rt lung: Appears normal [...] HOSPITAL at your discretion Coding ======= Description: 02802-60 Detailed Ultrasound Description: 10595-82 BPP without NST Supervisor Securities Vault: Eneida Akers RDMS Physician: Dominguez Deleon MD Electronically signed by: Dominguez Deleon MD at: 10:05 Procedure Note Dominguez Deleon MD - 04/18/2025 PAT NAME: ARACELI RIOS MED REC#: [id number] DA: [id number] PAT GEND: F PAT TYPE: O EXAM JONATHAN: [id number] REF PHYS MARINA [place] Comparison Studies There are no relevant prior studies to which this study is beingcompared Patient Status Outpatient Indication ======== 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 View: Adequate view ========= [place]orman . Number of fetuses: 1 Dating ====== Method of dating:based on stated ANICETO GA by prior [id number] w + 1 d ANICETO by prior assessment:06/12/2025 Ultrasound examination on:04/18/2025 GA by U/S based upon:AC, BPD, Femur, HC GA by U/S34 w + 5 d ANICETO by U/S:05/25/2025 Assigned:based on stated ANICETO, selected on 04/18/2025 Assigned GA32 w + 1 d Assigned ANICETO:06/12/2025 d Biometry Standard BPD90.0 mm 36w 3d >99% Hadlock ZZH684.5 mm 36w 2d >99% Martine HC315.9 mm 35w 3d 92% Hadlock Cerebellum tr42.6 mm 33w 3d 70% Hill AC299.0 mm 33w 6d 91% Hadlock Femur64.5 mm 33w 2d 69% Hadlock Fwlianf30.8 mm 31w 2d 29% Martine HC / AC1.06 EFW2,353 g 33w 6d 92% Hadlock EFW (lb)5 lb EFW (oz)3 oz EFW by:Hadlock (VSN-PD-PO-FL) Extended Tibia54.2 mm 32w 0d 51% Martine Guroqf11.3 mm 32w 1d 50% Martine Foot63.3 mm 29% Chitty Jqnpls76.3 mm 33w 2d 58% Martine Ulna51.8 mm 32w 5d 45% Martine Cav. septi pel. tr7.8 mm Vp6.8 mm CM5.6 mm 10% Nicolaides Nasal bone11.6 mm Rt Renal pelvis ap6.9 mm Lt Renal pelvis ap7.7 mm Head / Face / Neck Cephalic index0.82 75% Nicolaides Extremities / Bony Struc FL / BPD0.72 FL / HC0.20 FL / AC0.22 Other Structures NZA206 bpm General Evaluation Cardiac activity present. FHR [...] view:Appears normal SVC:normal IVC:normal 3-vessel view:Appears normal 6-remmjs-xuzwhtx view:Appears normal Rt lung:Appears normal Lt lung:normal [...] Structures Uterus / Cervix Cervix:Visualized Approach:Transabdominal Cervical uzdobg33.5 mm Ovaries / Tubes / Adnexa Rt [...] REGIONAL HOSPITAL at your discretion Coding ======= Description:47355-23 Detailed Ultrasound Description:59492-36 BPP without NST Supervisor Securities Vault: Eneida Akers RDMS Physician: Dominguez Deleon MD Electronically signed by: Dominguez Deleon MD at: 10:05 us Marina Barrera DO IMG US ORDERABLES Final Result from Last 3 Months Insurance [place] [id number] AETNA [facility] UMR Care Teams Office Machine Servicer Relationship Specialty Start Date End Date Provider, No Known [facility] [place] [address] PCP - General 04/10/25
--- OUTSIDE RECORDS SUMMARY | 2025-05-22 22:01 | XMS_ITS | Encounter Summary ---
Author Organization [facility] Address [address] [place] [address] Care Team Providers Care Public Relations Studies Director Name Role Phone Provider, No Known Primary [...] on filedocumented in this encounter Care Teams Public Relations Studies Director Relationship Specialty Start Date End Date Provider, No Known [facility] [place] [address] PCP - General 04/10/25 documented as of this encounter
[2025-05-22 22:26] VITALS: BMI 47.9
[2025-05-22 22:30] VITALS: BP 115/62; PULSE 96; RESP 18; TEMP 37; O2SAT 98; BMI 47.9
[2025-05-22 22:43] LABS: Microscopic, Urine URINE MICROSCOPIC (MICROSCOPIC)
[2025-05-22 22:51] LABS: Bilirubin,Urine Negative (Negative); Color,Urine YELLOW (Yellow); Glucose,Urine (UA) Negative (Negative); Ketones,Urine Negative (Negative); Leukocyte Esterase,Urine Negative (Negative); PH,Urine 6.0 (5.0-8.5); Protein,Urine Negative (Negative); Specific Gravity, Urine 1.020 (1.005-1.030); Urobilinogen,Urine 0.2 EU/dl (0.2)
[2025-05-22 22:57] LABS: Bacteria,Urine Trace /lpf
[2025-05-22] MEDS: LACTATED RINGERS 1000ML 1,000 ML 999 ML IV (23:01)
== END 2025-05-23 00:19 | disposition home or self-care (01) ==
LOC: OBOUT 21:59 → OB 22:01
PROVIDERS: PCP Obstetrics & Gynecology; Visit Provider Nurse Practitioner Obstetrics & Gynecology
DX: O47.1 False labor at or after 37 completed weeks of gestation (principal); O99.891 Other specified diseases and conditions complicating pregnancy; R51.9 Headache, unspecified; R60.9 Edema, unspecified; R10.20 Pelvic and perineal pain unspecified side; Z3A.37 37 weeks gestation of pregnancy
CPT/HCPCS: 59025; 81001; 99212; G0463; J7120

== ENCOUNTER 2025-05-27 14:52 | Outpatient (CLI) | payer OTHER, SELFPAY ==
--- OUTSIDE RECORDS SUMMARY | 2025-04-18 07:46 | XMS_ITS | Encounter Summary ---
[facility] Address [address] [place] [address] Care Team Providers Care Supervisor Plastering Name Role Phone Provider, No Known Primary Care Provider Unavail able Reason for Referral * Diagnostic Imaging (Routine) - Closed Specialty Diagnoses / Procedures Referred By Contac t Referred To Contact Radiology Diagnoses Placenta, abnormal, third trimester Large head , unspecified gestational age Procedures [facility] Diagnostic [place] Marina Barrera DO [address] [place] [address] Phone: tel: fax: [facility] US PER DIAG CTR [address] [place] [address] Phone: tel: Referral ID Status Reason Start Date Expiration Date Visits Re quested Visits Authorized [id number] Closed 04/10/2025 07/10/2026 1 1 Reason for Visit * Diagnostic Imaging (Routine) - Closed Specialty Diagnoses / Procedures Referred By Contac t Referred To Contact Radiology Diagnoses Placenta, abnormal, third trimester Large head , unspecified gestational age Procedures [facility] Diagnostic [place] Marina Barrera DO [address] [place] [address] Phone: tel: fax: [facility] US PER DIAG CTR [address] [place] [address] Phone: tel: Referral ID Status Reason Start Date Expiration Date Visits Re quested Visits Authorized [id number] Closed 04/10/2025 07/10/2026 1 1 Encounter Details Date Type Department Care Team (Latest Contact Info) Description 04/18/2025 8:46 AM EDT - 04/18/2025 11:59 PM EDT Hospital Encounter [facility] PER DIAG CTR [address] [place] [address] Marina Barrera, [address] [facility] [address] [place] [address] Placenta, abnormal, third trimester; Large [...] Procedure Name Priority Date/Time Associated Diagnosis Comments [facility] Routine 04/18/2025 9:59 AM EDT Placenta, abnormal, third trimester Large head , unspecified gestational age documented in this encounter Results * [facility] (04/18/2025 9:59 AM EDT) Anatomical Region Laterality Modality Ultrasound 04/18/2025 9:16 AM EDT Narrative 04/18/2025 10:05 AM EDT PAT NAME: ARACELI RIOS MED REC#: [id number] DA: [id number] PAT GEND: F PAT TYPE: O EXAM JONATHAN: [id number] REF PHYS MARINA BARRERA Comparison Studies There [...] EFW (oz) 3 oz EFW by: Hadlock (QPT-SW-SE-FL) Extended Tibia 54.2 mm 32w 0d 51% Martine Fibula 52.3 mm 32w 1d 50% Martine Foot 63.3 mm 29% Chitty Radius 46.3 mm 33w 2d 58% Martine Ulna 51.8 mm 32w 5d 45% Martine Cav. septi pel. tr 7.8 mm Nurse Sitter 6.8 mm CM 5.6 mm 10% Nicolaides [...] normal IVC: normal 3-vessel view: Appears normal 1-mpehyx-dmvatnd view: Appears normal Rt lung: Appears normal [...] growth assessment (your office) Further ultrasounds/consultation at [facility] at your discretion Coding ======= Description: 38224-77 Detailed Ultrasound Description: 22631-96 BPP without NST Block Inspector: Eneida Akers RDMS Physician: Dominguez Deleon MD Electronically signed by: Dominguez Deleon MD at: 10:05 Procedure Note Dominguez Deleon MD - 04/18/2025 PAT NAME: ARACELI RIOS MED REC#: [id number] DA: [id number] PAT GEND: F PAT TYPE: O EXAM JONATHAN: [id number] REF PHYS MARINA BARRERA Comparison Studies There are no relevant prior studies to which this study is beingcompared Patient Status Outpatient Indication ======== 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 View: Adequate view ========= [place] . Number of fetuses: 1 Dating ====== Method of dating:based on stated ANICETO GA by prior covwyolhpv42 w + 1 d ANICETO by prior assessment:06/12/2025 Ultrasound examination on:04/18/2025 GA by U/S based upon:AC, BPD, Femur, HC GA by U/S34 w + 5 d ANICETO by U/S:05/25/2025 Assigned:based on stated ANICETO, selected on 04/18/2025 Assigned GA32 w + 1 d Assigned ANICETO:06/12/2025 fqtosp424 d Biometry Standard BPD90.0 mm 36w 3d >99% Hadlock CBJ158.5 mm 36w 2d >99% Martine HC315.9 mm 35w 3d 92% Hadlock Cerebellum tr42.6 mm 33w 3d 70% Hill AC299.0 mm 33w 6d 91% Hadlock Femur64.5 mm 33w 2d 69% Hadlock Grelodo48.8 mm 31w 2d 29% Martine HC / AC1.06 EFW2,353 g 33w 6d 92% Hadlock EFW (lb)5 lb EFW (oz)3 oz EFW by:Hadlock (GMD-RV-EJ-FL) Extended Tibia54.2 mm 32w 0d 51% Martine Wyqzbi20.3 mm 32w 1d 50% Martine Foot63.3 mm 29% Chitty Ahcovd46.3 mm 33w 2d 58% Martine Ulna51.8 mm 32w 5d 45% Martine Cav. septi pel. tr7.8 mm Vp6.8 mm CM5.6 mm 10% Nicolaides Nasal bone11.6 mm Rt Renal pelvis ap6.9 mm Lt Renal pelvis ap7.7 mm Head / Face / Neck Cephalic index0.82 75% Nicolaides Extremities / Bony Struc FL / BPD0.72 FL / HC0.20 FL / AC0.22 Other Structures QSP802 bpm General Evaluation Cardiac activity present. FHR [...] view:Appears normal SVC:normal IVC:normal 3-vessel view:Appears normal 0-wufpii-eqeedvi view:Appears normal Rt lung:Appears normal Lt lung:normal [...] Structures Uterus / Cervix Cervix:Visualized Approach:Transabdominal Cervical .5 mm Ovaries / Tubes / Adnexa Rt ovary:Visualized Lt ovary:Visualized Consultation / Office Visit Type: Consultation See [facility] for full consult note. 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
--- OUTSIDE RECORDS SUMMARY | 2025-04-18 08:00 | XMS_ITS | Encounter Summary ---
[facility] Address [address] [place] [address] Care Team Providers Care Entry Level Web Developer Name Role Phone Provider, No Known Primary Care Provider Unavail able Reason for Visit * Reason Comments Anterior accessory lobe of placenta, lar ge head Encounter Details Date Type Department Care Team (Late st Contact Info) Description 04/18/2025 9:00 AM EDT Office Visit [facility] MATERNAL MEDICINE [address] [place], [place] [phone] Dominguez Deleon MD [address] [facility] [address] [place] [phone] hydronephrosis during , antepartum, single or unspecified [...] CVS. Dominguez Deleon MD, FACOG Maternal Medicine, [facility] documented in this encounter Plan of Treatment Not on file documented as of this encounter Visit Diagnoses Diagnosis hydronephrosis during , antepartum, single or unspecified fetus- Primary Suspected problem with placenta not found Suspected placental problem not found Vapes nicotine containing substance documented in this encounter Care Teams Entry Level Web Developer Relationship Specialty Start Date End Date Provider, [place] [address] PCP - General 04/10/25 documented as of this encounter
--- NOTE | 2025-05-27 14:45 | US_ITS ---
PROCEDURE: US OB BIOPHYSICAL PROFILE CLINICAL INDICATION: BPP COMPARISON: US US TRANSVAGINAL from 10/10/2024 US US OB /MATERNAL DETAIL from 01/23/2025 US OB FOLLOW UP from 02/06/2025 US OB FOLLOW UP from 03/19/2025 US OB BIOPHYSICAL PROFILE from 04/09/2025 US OB FOLLOW UP from 04/16/2025 US OB FOLLOW UP from 05/13/2025 US OB FOLLOW UP from 05/20/2025 FINDINGS: Transabdominal sonographic images of the uterus were obtained. From her established due date she is 37weeks 5days. The following parameters are obtained: Viable Fetus in the cephalic presentation with an anterior/lateral posterior placenta grade 2. The cervix measures 3.3 cm in length. Measurements: heart Rate = 130bpm Amniotic fluid index: 16.66cm, MVP 6.33 cm. There is a small amount of particulate matter within the amniotic fluid that could be either meconium or vernix. Qualitative AFV:2 Breathing movements: 2 Gross Body Movements: 2 Tone: 2 Biophysical profile score: 8 No obvious anomalies evident.Kidneys, stomach, bladder, four-chamber heart, three-vessel cord appear normal. IMPRESSION: 1. Viable fetus in the cephalic presentation with an anterior/lateral posterior placenta grade 2. 2. The fluid is within normal limits with an amniotic fluid index 16.66 cm, MVP 6.33 cm. 3. There is particulate matter within the amniotic fluid which could be either vernix or meconium. 4. Biophysical profile is 8/8 with good breathing movement and movement seen. 5. Limited anatomical scan appears normal. Dictated by: Giacomo Webster MD 05/27/2025 16:08 Giacomo Webster MD in OV 05/27/2025 16:08
--- OUTSIDE RECORDS SUMMARY | 2025-05-27 15:06 | XMS_ITS | Clinical Summary ---
Author Organization Healthcare Address [address] [place] [address] Care Team Providers Care Mold Maintenance Technician Name Role Phone Miranda Pa HAILEY Primary [...] 2022 UKY-Cervical Cancer Screening 2025 UKY-HPV/Cotest 2025 [id number]-RGADL-31 Vaccine ( - season) 2025 UKY-Influenza Vaccine [...] age to complete this topic Insurance AETNA [facility] MEDICAID Care Teams Mold Maintenance Technician Relationship Specialty Start Date End Date Miranda Pa APRN [address] [facility] [place] [address] PCP - General 11/28/20
--- OUTSIDE RECORDS SUMMARY | 2025-05-27 15:06 | XMS_ITS | Clinical Summary ---
Author Organization [facility] Address [address] [place] [address] Care Team Providers Care Policy And Planning Manager Name Role Phone Provider, No Known [...] EDT Office Visit [facility] MATERNAL MEDICINE [address] [place] [address] Dominguez Deleon MD hydronephrosis during , antepartum, single or unspecified fetus (Primary Dx); Suspected problem with placenta not found; Vapes nicotine containing substance 04/18/2025 8:46 AM EDT - 04/18/2025 11:59 PM EDT Hospital Encounter [facility] US PER DIAG CTR [address] [place] [address] Marina Barrera DO Placenta, abnormal, [...] ANNUAL PHYSICAL 04/10/2025 HEPATITIS C SCREENING 04/10/2025 TDAP/TD VACCINES (3 - Td or Tdap) 04/02/2035 04/02/2025, 02/15/2006 Pneumococcal Vaccine 0-49 Aged Out No longer eligible based on patient's age to complete this topic RSV Vaccine - Adults (No Doses Required) Completed Procedures Procedure Name Priority Date/Time Associated Diagnosis Comments [facility] Routine 04/18/2025 9:59 AM EDT Placenta, abnormal, third trimester Large head , unspecified gestational age from Last 3 Months Results * [facility] (04/18/2025 9:59 AM EDT) Anatomical Region Laterality Modality Ultrasound 04/18/2025 9:16 AM EDT Narrative 04/18/2025 10:05 AM EDT PAT NAME: ARACELI RIOS MED REC#: [id number] DA: [id number] PAT GEND: F PAT TYPE: O EXAM JONATHAN: [id number] REF PHYS MARINA [place] Comparison Studies There [...] EFW (oz) 3 oz EFW by: Hadlock (RQB-EQ-TN-FL) Extended Tibia 54.2 mm 32w 0d 51% Martine Fibula 52.3 mm 32w 1d 50% Martine Foot 63.3 mm 29% Chitty Radius 46.3 mm 33w 2d 58% Martine Ulna 51.8 mm 32w 5d 45% Martine Cav. septi pel. tr 7.8 mm Manager Loan 6.8 mm CM 5.6 mm 10% Nicolaides [...] normal IVC: normal 3-vessel view: Appears normal 2-wfggbl-yusznsa view: Appears normal Rt lung: Appears normal [...] Consultation / Office Visit Type: Consultation See [facility] for full consult note. Impression [...] growth assessment (your office) Further ultrasounds/consultation at 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 View: Adequate view ========= [place]orman . Number of fetuses: 1 Dating ====== Method of dating:based on stated ANICETO GA by prior ivexvrmksw72 w + 1 d ANICETO by prior assessment:06/12/2025 Ultrasound examination on:04/18/2025 GA by U/S based upon:AC, BPD, Femur, HC GA by U/S34 w + 5 d ANICETO by U/S:05/25/2025 Assigned:based on stated ANICETO, selected on 04/18/2025 Assigned GA32 w + 1 d Assigned ANICETO:06/12/2025 nbrloy961 d Biometry Standard BPD90.0 mm 36w 3d >99% Hadlock LAN696.5 mm 36w 2d >99% Martine HC315.9 mm 35w 3d 92% Hadlock Cerebellum tr42.6 mm 33w 3d 70% Hill AC299.0 mm 33w 6d 91% Hadlock Femur64.5 mm 33w 2d 69% Hadlock Yoqudfm18.8 mm 31w 2d 29% Martine HC / AC1.06 EFW2,353 g 33w 6d 92% Hadlock EFW (lb)5 lb EFW (oz)3 oz EFW by:Hadlock (ACE-PB-VV-FL) Extended Tibia54.2 mm 32w 0d 51% Martine Pntxvl74.3 mm 32w 1d 50% Martine Foot63.3 mm 29% Chitty Asenrd56.3 mm 33w 2d 58% Martine Ulna51.8 mm 32w 5d 45% Martine Cav. septi pel. tr7.8 mm Vp6.8 mm CM5.6 mm 10% Nicolaides Nasal bone11.6 mm Rt Renal pelvis ap6.9 mm Lt Renal pelvis ap7.7 mm Head / Face / Neck Cephalic index0.82 75% Nicolaides Extremities / Bony Struc FL / BPD0.72 FL / HC0.20 FL / AC0.22 Other Structures ZBE074 bpm General Evaluation Cardiac activity present. FHR [...] view:Appears normal SVC:normal IVC:normal 3-vessel view:Appears normal 8-bqrmew-dfzzsea view:Appears normal Rt lung:Appears normal Lt lung:normal [...] cm/s Umbilical A S / D3.22 78% Hpu Umbilical A HR126 bpm Biophysical Profile 2: breathing movements 2: Gross body movements 2: tone 2: Amniotic fluid volume 02/22 Biophysical profile score Maternal Structures Uterus / Cervix Cervix:Visualized Approach:Transabdominal Cervical tqvhpa00.5 mm Ovaries / Tubes / Adnexa Rt ovary:Visualized Lt ovary:Visualized Consultation / Office Visit Type: Consultation See [facility] for full consult note. Impression [...] growth assessment (your office) Further ultrasounds/consultation at [facility] at your discretion Coding ======= Description:96174-47 Detailed Ultrasound Description:42064-13 BPP without NST Packing Supervisor: Eneida Akers RDMS Physician: Dominguez Deleon MD Electronically signed by: Dominguez Deleon MD at: 10:05 us Marinabrandie Laurenradha DO IMG US ORDERABLES Final Result from Last [address] [place] [address] AETNA [facility] UMR Care Teams Policy And Planning Manager Relationship Specialty Start Date End Date Provider, [place] [address] PCP - General 04/10/25
--- OUTSIDE RECORDS SUMMARY | 2025-05-27 15:06 | XMS_ITS | Encounter Summary ---
Author Organization Healthcare Address [address] [place] [address] Care Team Providers Care Reimbursement Rep Name Role Phone Miranda Pa APRN Primary Care Provider + Encounter Details Date Type Department Care Team (Late st Contact Info) Description 01/22/2021 Community [facility] [address] [place] [address] Miranda Pa APRN [address] [place] [address] Migraine without status migrainosus, not intractable, unspecified [...] Primary documented in this encounter Care Teams Reimbursement Rep Relationship Specialty Start Date End Date Miranda Pa APRN [address] [facility] [place] [address] PCP - General 11/28/20 documented as of this encounter
--- OUTSIDE RECORDS SUMMARY | 2025-05-27 15:07 | XMS_ITS | Encounter Summary ---
Author Organization [facility] Address [address] [place] [address] Care Team Providers Care Normalizer Name Role Phone Provider, No Known Primary [...] on filedocumented in this encounter Care Teams Normalizer Relationship Specialty Start Date End Date Provider, No Known [facility] [place] [address] PCP - General 04/10/25 documented as of this encounter
== END 2025-05-27 23:59 | disposition home or self-care (01) ==
LOC: RAD 14:52
PROVIDERS: Visit Provider Obstetrics & Gynecology
DX: O28.3 Abnormal ultrasonic finding on antenatal screening of mother (principal); O36.63X0 Maternal care for excessive fetal growth, third trimester, not applicable or unspecified; Z3A.37 37 weeks gestation of pregnancy
CPT/HCPCS: 76819

== ENCOUNTER 2025-05-29 10:53 | Outpatient (CLI) | payer OTHER, SELFPAY ==
--- OUTSIDE RECORDS SUMMARY | 2025-04-18 07:46 | XMS_ITS | Encounter Summary ---
[facility] Address [address] [place] [address] Care Team Providers Care Technical Fellow Name Role Phone Provider, No Known Primary Care Provider Unavail able Reason for Referral * Diagnostic Imaging (Routine) - Closed Specialty Diagnoses / Procedures Referred By Contac t Referred To Contact Radiology Diagnoses Placenta, abnormal, third trimester Large head , unspecified gestational age Procedures [facility] [place] Marina Barrera DO [address] [place] [address] Phone: tel: fax: [facility] US PER DIAG CTR [address] [place] [address] Phone: tel: Referral ID Status Reason Start Date Expiration Date Visits Re quested Visits Authorized [id number] Closed 04/10/2025 07/10/2026 1 1 Reason for Visit * Diagnostic Imaging (Routine) - Closed Specialty Diagnoses / Procedures Referred By Contac t Referred To Contact Radiology Diagnoses Placenta, abnormal, third trimester Large head , unspecified gestational age Procedures [facility] [place] Marina Barrera DO [address] [place] [address] Phone: tel: fax: [facility] US PER DIAG CTR [address] [place] [address] Phone: tel: Referral ID Status Reason Start Date Expiration Date Visits Re quested Visits Authorized [id number] Closed 04/10/2025 07/10/2026 1 1 Encounter Details Date Type Department Care Team (Latest Contact Info) Description 04/18/2025 8:46 AM EDT - 04/18/2025 11:59 PM EDT Hospital Encounter [facility] PER DIAG CTR [address] [place] [address] Marina Barrera, [address] [facility] [address] [place] [address] Placenta, abnormal, third trimester; Large head; , unspecified gestational age Discharge Disposition: Home or Self Care Social History Tobacco Use Types Packs/Day Years Used Date Smoking Tobacco: Never Smokeless Tobacco: Never Alcohol Use Standard Drinks/Week Comments Not Currently 0 (1 standard drink = 0.6 oz pur e alcohol) Abuse Screen Answer Date Recorded Unsafe at [...] Date of Delivery Comme nts Yes 06/12/2025 Date entered lydia or to episode creation Sex and Gender Information Value Date Recorded Sex Assigned at Not on file Legal Sex Female 3:25 PM EST Gender Identity Not on file Sexual Orientation Not on file documented as of this encounter Medications at Time of Discharge MAGNESIUM GLYCINATE PO Take 400 mg by mouth 2 (Two) Times a Day. metroNIDAZOLE (METROGEL) 0.75 % vaginal gel Insert 1 Applicatorful into the vagina As Needed. 01/14/2025 miconazole (MONISTAT 1 COMBINATION PACK) 1200 & 2 MG & % kit Insert 1 each into the vagina As Needed. 04/17/2025 Vit-Fe Fumarate-FA (GNP ) 28-0.8 MG tablet Take 1 tablet by mouth Daily. 03/20/2025 documented as of this encounter Plan of Treatment Not on file documented as of this encounter Procedures Procedure Name Priority Date/Time Associated Diagnosis Comments [facility] Routine 04/18/2025 9:59 AM EDT Placenta, abnormal, third trimester Large head , unspecified gestational age documented in this encounter Results * [facility] (04/18/2025 9:59 AM EDT) Anatomical Region Laterality Modality Ultrasound 04/18/2025 9:16 AM EDT Narrative 04/18/2025 10:05 AM EDT PAT NAME: ARACELI RIOS MED REC#: [id number] DA: [id number] PAT GEND: F PAT TYPE: O EXAM JONATHAN: [id number] REF PHYS MARINA BARRERA Comparison Studies There are no relevant prior studies to which this study is being compared Patient Status Outpatient Indication ======== Concern for accessory lobe, Large head, [place] Maternal Assessment Height 167 cm Height (ft) 5 ft Height (in) 6 in Weight 130 kg Weight (lb) 287 lb BMI 46.61 kg/m Method ======= Transabdominal ultrasound examination. View: Adequate view ========= Dorman . Number of fetuses: 1 Dating ====== Method of dating: based on stated ANICETO GA by prior assessment 32 w + 1 d ANICETO by prior assessment: 06/12/2025 Ultrasound examination on: 04/18/2025 GA by U/S based upon: AC, BPD, Femur, HC GA by U/S 34 w + 5 d ANICETO by U/S: 05/25/2025 Assigned: based on stated ANICETO, selected on 04/18/2025 Assigned GA 32 w + 1 d Assigned ANICETO: 06/12/2025 length 280 d Biometry Standard BPD 90.0 mm 36w 3d >99% Hadlock OFD 109.5 mm 36w 2d >99% Martine HC 315.9 mm 35w 3d 92% Hadlock Cerebellum tr 42.6 mm 33w 3d 70% Hill AC 299.0 mm 33w 6d 91% Hadlock Femur 64.5 mm 33w 2d 69% Hadlock Humerus 53.8 mm 31w 2d 29% Martine HC / AC 1.06 EFW 2,353 g 33w 6d 92% Hadlock EFW (lb) 5 lb EFW (oz) 3 oz EFW by: Hadlock (TTH-PE-YW-FL) Extended Tibia 54.2 mm 32w 0d 51% Martine Fibula 52.3 mm 32w 1d 50% Martine Foot 63.3 mm 29% Chitty Radius 46.3 mm 33w 2d 58% Martine Ulna 51.8 mm 32w 5d 45% Martine Cav. septi pel. tr 7.8 mm Senior Medical Transcriptionist 6.8 mm CM 5.6 mm 10% Nicolaides Nasal bone 11.6 mm Rt Renal pelvis ap 6.9 mm Lt Renal pelvis ap 7.7 mm Head / Face / Neck Cephalic index 0.82 75% Nicolaides Extremities / Bony Struc FL / BPD 0.72 FL / HC 0.20 FL / AC 0.22 Other Structures FHR 139 bpm General Evaluation Cardiac activity present. FHR 139 bpm. movements present. Presentation cephalic. Placenta Placental site: anterior, posterior. Umbilical cord Cord vessels: 3 vessel cord. Insertion site: placental insertion: normal. Amniotic fluid Amount of AF: normal. MVP 6.2 cm. CAROL 18.2 cm. Q1 6.2 cm, Q2 3.8 cm, Q3 3.8 cm, Q4 4.4 cm. Anatomy Cranium: Appears normal Midline falx: Appears normal Cavum septi pellucidi: Appears normal Cerebellum: Appears normal Cisterna magna: Appears normal Head / Neck Rt lateral ventricle: Appears normal Lt lateral ventricle: Appears normal Rt choroid plexus: Appears normal Lt choroid plexus: Appears normal Vermis: Appears normal Neck: Appears normal Lips: Appear normal Profile: Appears normal Nose: Appears normal Face Nose: Nasal bone present Palate: Appears normal Orbits: Appears normal Lens: Normal 4-chamber view: Appears normal RVOT view: Appears normal LVOT view: Appears normal Heart / Thorax Aortic arch view: Appears normal Ductal arch view: Appears normal SVC: normal IVC: normal 3-vessel view: Appears normal 0-gsmhxe-kyzoext view: Appears normal Rt lung: Appears normal Lt lung: normal Diaphragm: Appears normal Diaphragm: Intact Cord insertion: Appears normal Stomach: Appears normal Bladder: Appears normal Abdomen Rt kidney: visualized Rt kidney: The AP diameter of the right renal pelvis measures 6.9 mm Lt kidney: visualized Lt kidney: The AP diameter of the left renal pelvis measures 7.7 mm Liver: normal Small bowel: normal Large bowel: normal Cervical spine: Appears normal Thoracic spine: Appears normal Lumbar spine: Appears normal Sacral spine: Appears normal Arms: Appears normal Legs: Appears normal Rt upper arm: Appears normal Rt forearm: Appears normal Rt hand: Appears normal Lt upper arm: Appears normal Lt forearm: Appears normal Lt hand: Appears normal Rt upper leg: Appears normal Rt lower leg: Appears normal Rt foot: Appears normal Lt upper leg: Appears normal Lt lower leg: Appears normal Lt foot: Appears normal Gender: male Wants to know gender: yes Doppler Arterial Umbilical A PI 1.08 81% Phu Umbilical A RI 0.69 83% Phu Umbilical A PS 51.80 cm/s 69% Ebbing Umbilical A ED 15.88 cm/s Umbilical A TAmax 32.49 cm/s 58% Ebbing Umbilical A MD 14.65 cm/s Umbilical A S / D 3.22 78% Phu Umbilical A HR 126 bpm Biophysical Profile 2: breathing movements 2: Gross body movements 2: tone 2: Amniotic fluid volume 02/22 Biophysical profile score Maternal Structures Uterus / Cervix Cervix: Visualized Approach: Transabdominal Cervical length 41.5 mm Ovaries / Tubes / Adnexa Rt ovary: Visualized Lt ovary: Visualized Consultation / Office Visit Type: Consultation See Epic for full consult note. Impression Single, live intrauterine at 32w1d in cephalic lie size is appropriate for the reported ANICETO Amniotic fluid volume is within normal limits Left-sided UTD-A1 The visualized portions of the anatomy (see table) appear normal No other abnormalities were appreciated within the limitations of ultrasound at this gestational age Recommendation Follow up in 4 weeks for growth assessment (your office) Further ultrasounds/consultation at [facility] at your discretion Coding ======= Description: 22642-87 Detailed Ultrasound Description: 00722-68 BPP without NST Sales Support Manager: Eneida Akers RDMS Physician: Dominguez Deleon MD Electronically signed by: Dominguez Deleon MD at: 10:05 Procedure Note Dominguez Deleon MD - 04/18/2025 PAT NAME: ARACELI RIOS MED REC#: [id number] DA: [id number] PAT GEND: F PAT TYPE: O EXAM JONATHAN: [id number] REF PHYS MARINA BARRERA Comparison Studies There are no relevant prior studies to which this study is beingcompared Patient Status Outpatient Indication ======== Concern for accessory lobe, Large head, [place] Maternal Assessment Ptzmyu773 cm Height (ft)5 ft Height (in)6 in Bzygjl447 kg Weight (lb)287 lb BMI46.61 kg/m Method ======= Transabdominal ultrasound examination. View: Adequate view ========= Dorman . Number of fetuses: 1 Dating ====== Method of dating:based on stated ANICETO GA by prior [id number] w + 1 d ANICETO by prior assessment:06/12/2025 Ultrasound examination on:04/18/2025 GA by U/S based upon:AC, BPD, Femur, HC GA by U/S34 w + 5 d ANICETO by U/S:05/25/2025 Assigned:based on stated ANICETO, selected on 04/18/2025 Assigned GA32 w + 1 d Assigned ANICETO:06/12/2025 d Biometry Standard BPD90.0 mm 36w 3d >99% Hadlock TAI125.5 mm 36w 2d >99% Martine HC315.9 mm 35w 3d 92% Hadlock Cerebellum tr42.6 mm 33w 3d 70% Hill AC299.0 mm 33w 6d 91% Hadlock Femur64.5 mm 33w 2d 69% Hadlock Jxpeuba27.8 mm 31w 2d 29% Martine HC / AC1.06 EFW2,353 g 33w 6d 92% Hadlock EFW (lb)5 lb EFW (oz)3 oz EFW by:Hadlock (FQA-LJ-QG-FL) Extended Tibia54.2 mm 32w 0d 51% Martine Kuaebx68.3 mm 32w 1d 50% Martine Foot63.3 mm 29% Chitty Qphbzi92.3 mm 33w 2d 58% Martine Ulna51.8 mm 32w 5d 45% Martine Cav. septi pel. tr7.8 mm Vp6.8 mm CM5.6 mm 10% Nicolaides Nasal bone11.6 mm Rt Renal pelvis ap6.9 mm Lt Renal pelvis ap7.7 mm Head / Face / Neck Cephalic index0.82 75% Nicolaides Extremities / Bony Struc FL / BPD0.72 FL / HC0.20 FL / AC0.22 Other Structures [id number] bpm General Evaluation Cardiac activity present. FHR 139 bpm. movements present. Presentation cephalic. Placenta Placental site: anterior, posterior. Umbilical cord Cord vessels: 3 vessel cord. Insertion site: placentalinsertion: normal. Amniotic fluid Amount of AF: normal. MVP 6.2 cm. CAROL 18.2 cm. Q1 6.2 cm,Q2 3.8 cm, Q3 3.8 cm, Q4 4.4 cm. Anatomy Cranium:Appears normal Midline falx:Appears normal Cavum septi pellucidi:Appears normal Cerebellum:Appears normal Cisterna magna:Appears normal Head / Neck Rt lateral ventricle:Appears normal Lt lateral ventricle:Appears normal Rt choroid plexus:Appears normal Lt choroid plexus:Appears normal Vermis:Appears normal Neck:Appears normal Lips:Appear normal Profile:Appears normal Nose:Appears normal Face Nose:Nasal bone present Palate:Appears normal Orbits:Appears normal Lens:Normal 4-chamber view:Appears normal RVOT view:Appears normal LVOT view:Appears normal Heart / Thorax Aortic arch view:Appears normal Ductal arch view:Appears normal SVC:normal IVC:normal 3-vessel view:Appears normal 9-glhfue-ztbsncq view:Appears normal Rt lung:Appears normal Lt lung:normal Diaphragm:Appears normal Diaphragm:Intact Cord insertion:Appears normal Stomach:Appears normal Bladder:Appears normal Abdomen Rt kidney:visualized Rt kidney:The AP diameter of the right renal pelvis measures 6.9 mm Lt kidney:visualized Lt kidney:The AP diameter of the left renal pelvis measures 7.7 mm Liver:normal Small bowel:normal Large bowel:normal Cervical spine:Appears normal Thoracic spine:Appears normal Lumbar spine:Appears normal Sacral spine:Appears normal Arms:Appears normal Legs:Appears normal Rt upper arm:Appears normal Rt forearm:Appears normal Rt hand:Appears normal Lt upper arm:Appears normal Lt forearm:Appears normal Lt hand:Appears normal Rt upper leg:Appears normal Rt lower leg:Appears normal Rt foot:Appears normal Lt upper leg:Appears normal Lt lower leg:Appears normal Lt foot:Appears normal Gender:male Wants to know gender:yes Doppler Arterial Umbilical A PI1.08 81% Phu Umbilical A RI0.69 83% Phu Umbilical A PS51.80 cm/s 69% Ebbing Umbilical A ED15.88 cm/s Umbilical A TAmax32.49 cm/s 58% Ebbing Umbilical A MD14.65 cm/s Umbilical A S / D3.22 78% Phu Umbilical A HR126 bpm Biophysical Profile 2: breathing movements 2: Gross body movements 2: tone 2: Amniotic fluid volume 02/22 Biophysical profile score Maternal Structures Uterus / Cervix Cervix:Visualized Approach:Transabdominal Cervical jgumza76.5 mm Ovaries / Tubes / Adnexa Rt ovary:Visualized Lt ovary:Visualized Consultation / Office Visit Type[facility]. Impression Single, live intrauterine at 32w1d in cephalic lie size is appropriate for the reported ANICETO Amniotic fluid volume is within normal limits Left-sided UTD-A1 The visualized portions of the anatomy (see table) appear normal No other abnormalities were appreciated within the limitations ofultrasound at this gestational age Recommendation Follow up in 4 weeks for growth assessment (your office) Further ultrasounds/consultation at [facility] at your discretion Coding ======= Description:15705-17 Detailed Ultrasound Description:84078-90 BPP without NST Sales Support Manager: Eneida Akers RDMS Physician: Dominguez Deleon MD Electronically signed by: Dominguez Deleon MD at: 10:05 us Marina Barrera DO IMG US ORDERABLES Final Result documented in this encounter Visit Diagnoses Diagnosis Placenta, abnormal, third trimester 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
--- OUTSIDE RECORDS SUMMARY | 2025-04-18 08:00 | XMS_ITS | Encounter Summary ---
Author [facility] Address [address] [place] [address] Care Team Providers Care Supervisor Ornamental Ironworking Name Role Phone Provider, No Known Primary Care Provider Unavail able Reason for Visit * Reason Comments Anterior accessory lobe of placenta, lar ge head Encounter Details Date Type Department Care Team (Late st Contact Info) Description 04/18/2025 9:00 AM EDT Office Visit [facility] MATERNAL MEDICINE [address] [place], [place] [phone] Dominguez Deleon MD [address] [facility] [address] [place] [phone] hydronephrosis during , antepartum, single or unspecified [...] CVS. Dominguez Deleon MD, FACOG Maternal Medicine, [facility] documented in this encounter Plan of Treatment Not on file documented as of this encounter Visit Diagnoses Diagnosis hydronephrosis during , antepartum, single or unspecified fetus- Primary Suspected problem with placenta not found Suspected placental problem not found Vapes nicotine containing substance documented in this encounter Care Teams Supervisor Ornamental Ironworking Relationship Specialty Start Date End Date Provider, [place] [address] PCP - General 04/10/25 documented as of this encounter
[2025-05-29 08:44] VITALS: BMI 48.1
--- OUTSIDE RECORDS SUMMARY | 2025-05-29 11:03 | XMS_ITS | Encounter Summary ---
Author Organization Healthcare Address [address] [place] [address] Care Team Providers Care Petroleum Sampler Name Role Phone Miranda Pa APRN Primary Care Provider + Encounter Details Date Type Department Care Team (Late st Contact Info) Description 01/22/2021 Community [facility] Community Practice [address] [place] [address] Miranda Pa APRN [address] [place] [address] Migraine without status migrainosus, not intractable, unspecified [...] Primary documented in this encounter Care Teams Petroleum Sampler Relationship Specialty Start Date End Date Miranda Pa APRN [address] [facility] [place] [address] PCP - General 11/28/20 documented as of this encounter
--- OUTSIDE RECORDS SUMMARY | 2025-05-29 11:03 | XMS_ITS | Clinical Summary ---
Author Organization Healthcare Address [address] [place] [address] Care Team Providers Care Clinical Informatics Director Name Role Phone Miranda Pa HAILEY Primary [...] 2022 UKY-Cervical Cancer Screening 2025 UKY-HPV/Cotest 2025 QUY-QHWFG-41 Vaccine ( - season) 2025 UKY-Influenza Vaccine [...] age to complete this topic Insurance AETNA [facility] MEDICAID Care Teams Clinical Informatics Director Relationship Specialty Start Date End Date Miranda Pa APRN 7 [facility] [place] [address] PCP - General 11/28/20
--- OUTSIDE RECORDS SUMMARY | 2025-05-29 11:03 | XMS_ITS | Clinical Summary ---
Author Organization [facility] Address [address] [place] [address] Care Team Providers Care Rn Stars Name Role Phone Provider, No Known Primary [...] Description 04/18/2025 9:00 AM EDT Office Visit [facility] MATERNAL MEDICINE [address] [place] [address] Dominguez Deleon MD hydronephrosis during , antepartum, single or unspecified fetus (Primary Dx); Suspected problem with placenta not found; Vapes nicotine containing substance 04/18/2025 8:46 AM EDT - 04/18/2025 11:59 PM EDT Hospital Encounter [facility] [address] [place] [address] Marina Barrera DO Placenta, abnormal, [...] Name Priority Date/Time Associated Diagnosis Comments [facility] Routine 04/18/2025 9:59 AM EDT Placenta, abnormal, third trimester Large head , unspecified gestational age from Last 3 Months Results * [facility] (04/18/2025 9:59 AM EDT) Anatomical Region Laterality Modality Ultrasound 04/18/2025 9:16 AM EDT Narrative 04/18/2025 10:05 AM EDT PAT NAME: ARACELI RIOS MED REC#: [id number] DA: [id number] PAT GEND: F PAT TYPE: O EXAM JONATHAN: [id number] REF PHYS MARINA [place] Comparison Studies There [...] EFW (oz) 3 oz EFW by: Hadlock ([id number]-IX-[id number]) Extended Tibia 54.2 mm 32w 0d 51% Martine Fibula 52.3 mm 32w 1d 50% Martine Foot 63.3 mm 29% Chitty Radius 46.3 mm 33w 2d 58% Martine Ulna 51.8 mm 32w 5d 45% Martine Cav. septi pel. tr 7.8 mm Physical Therapist Aide 6.8 mm CM 5.6 mm 10% Nicolaides [...] normal IVC: normal 3-vessel view: Appears normal 8-kdkzcj-hnvdwdm view: Appears normal Rt lung: Appears normal [...] / Office Visit Type: Consultation See [facility] for full consult note. Impression Single, [...] growth assessment (your office) Further ultrasounds/consultation at [facility] at your discretion Coding ======= Description: 85299-67 Detailed Ultrasound Description: 89351-70 BPP without NST Dropper Tank Storage: Eneida Akers RDMS Physician: Dominguez Deleon MD Electronically signed by: Dominguez Deleon MD at: 10:05 Procedure Note Dominguez Deleon MD - 04/18/2025 PAT NAME: ARACELI RIOS MED REC#: [id number] DA: [id number] PAT GEND: F PAT TYPE: O EXAM JONATHAN: [id number] REF PHYS MARINA [place] Comparison Studies There are no relevant prior studies to which this study is beingcompared Patient Status Outpatient Indication ======== 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 View: Adequate view ========= Dorman . Number of fetuses: 1 Dating ====== Method of dating:based on stated ANICETO GA by prior [id number] w + 1 d ANICETO by prior assessment:06/12/2025 Ultrasound examination on:04/18/2025 GA by U/S based upon:AC, BPD, Femur, HC GA by U/S34 w + 5 d ANICETO by U/S:05/25/2025 Assigned:based on stated ANICETO, selected on 04/18/2025 Assigned GA32 w + 1 d Assigned ANICETO:06/12/2025 [id number] d Biometry Standard BPD90.0 mm 36w 3d >99% Hadlock CVG001.5 mm 36w 2d >99% Martine HC315.9 mm 35w 3d 92% Hadlock Cerebellum tr42.6 mm 33w 3d 70% Hill AC299.0 mm 33w 6d 91% Hadlock Femur64.5 mm 33w 2d 69% Hadlock Cwjxrgr85.8 mm 31w 2d 29% Martine HC / AC1.06 EFW2,353 g 33w 6d 92% Hadlock EFW (lb)5 lb EFW (oz)3 oz EFW by:Hadlock ([id number]-ON-AA-FL) Extended Tibia54.2 mm 32w 0d 51% Martine Midbzx91.3 mm 32w 1d 50% Martine Foot63.3 mm 29% Chitty Gdehbg05.3 mm 33w 2d 58% Martine Ulna51.8 mm 32w 5d 45% Martine Cav. septi pel. tr7.8 mm Vp6.8 mm CM5.6 mm 10% Nicolaides Nasal bone11.6 mm Rt Renal pelvis ap6.9 mm Lt Renal pelvis ap7.7 mm Head / Face / Neck Cephalic index0.82 75% Nicolaides Extremities / Bony Struc FL / BPD0.72 FL / HC0.20 FL / AC0.22 Other Structures DLS049 bpm General Evaluation Cardiac activity present. FHR [...] view:Appears normal SVC:normal IVC:normal 3-vessel view:Appears normal 3-zlypua-snfrzhk view:Appears normal Rt lung:Appears normal Lt lung:normal [...] Structures Uterus / Cervix Cervix:Visualized Approach:Transabdominal Cervical trkkig91.5 mm Ovaries / Tubes / Adnexa Rt ovary:Visualized Lt ovary:Visualized Consultation / Office Visit Type: Consultation See [facility] for full consult note. Impression Single, [...] growth assessment (your office) Further ultrasounds/consultation at [facility] at your discretion Coding ======= Description:36644-76 Detailed Ultrasound Description:42511-06 BPP without NST Dropper Tank Storage: Eneida Akers RDMS Physician: Dominguez Deleon MD Electronically signed by: Dominguez Deleon MD at: 10:05 us Marinabrandie Laurenradha DO IMG US ORDERABLES Final Result from Last [address] [place] [address] [place] [address] [employer] [facility] Care Teams Rn Stars Relationship Specialty Start Date End Date Provider, [place] [address] PCP - General 04/10/25
--- OUTSIDE RECORDS SUMMARY | 2025-05-29 11:03 | XMS_ITS | Encounter Summary ---
Author Organization [facility] Address [address] [place] [address] Care Team Providers Care Electronics Tech Name Role Phone Provider, No Known Primary [...] on filedocumented in this encounter Care Teams Electronics Tech Relationship Specialty Start Date End Date Provider, No Known [facility] [place] [address] PCP - General 04/10/25 documented as of this encounter
--- NOTE | 2025-05-29 11:18 | ECG_ITS ---
APPROVED REPORT Exam: Resting ECG HR:84 bpm ECG Measurements Heart Rate 84 AXES GA 114 P 56 QRSd 82 QRS 80 QT 364 T 54 QTc 404 Conclusion SINUS RHYTHM WITH SHORT GA INTERVAL BORDERLINE ECG UNCONFIRMED REPORT Electronically signed by : Jose Miguel Rose MD 05/30/2025 13:09:15
[2025-05-29 11:28] LABS: Hematocrit 34.7 % (37.0-47.0); Hemoglobin 11.3 g/dL (12.2-16.2); Immature Granulocytes % 0.3 %; Mean Corpuscular HGB Conc 32.6 g/dL (31.8-35.4); Mean Corpuscular Hemoglobin 28.3 pg (27.0-31.2); Mean Corpuscular Volume 86.8 fl (81-99); Nucleated Red Blood Cells % 0 %; Platelet Count 246 K/mm3 (142-424); Red Blood Count 4.00 M/mm3 (4.20-5.40); Red Cell Distribution Width-SD 47.2 fL; White Blood Count 9.9 K/mm3 (4.8-10.8)
[2025-05-29 11:41] LABS: Alanine Aminotransferase 18 U/L (12-78); Albumin Level 3.8 g/dl (3.5-5.0); Albumin/Globulin Ratio 1.1 (1.1-1.8); Alkaline Phosphatase 136 U/L (38-126); Anion Gap 9.0 mEq/L (5-15); Aspartate Amino Transferase 21 U/L (14-36); Bilirubin,Total 0.5 mg/dl (0.2-1.3); Blood Urea Nitrogen 6 mg/dl (7-17); Calcium 9.7 mg/dl (8.4-10.2); Carbon Dioxide 22 mmol/L (22.0-30.0); Chloride 106 mmol/L (98-107); Creatinine Clearance Estimated 128 mL/min (50-200); Creatinine,Serum 0.60 mg/dl (0.52-1.04); Estimated Glomerular Filt Rate 117 ml/min (>60); GFR (African American) 142 ML/MIN (>60); Globulin 3.6 g/dL (1.3-3.2); Glucose 77 mg/dl (74-100); Potassium 4.0 mmoL/L (3.5-5.1); Sodium 133 mmol/L (136-145); Total Protein,Serum 7.4 g/dl (6.3-8.2)
== END 2025-05-29 23:59 | disposition home or self-care (01) ==
LOC: PREOP 10:54
PROVIDERS: Visit Provider Obstetrics & Gynecology
DX: Z01.810 Encounter for preprocedural cardiovascular examination (principal); Z01.812 Encounter for preprocedural laboratory examination; R94.31 Abnormal electrocardiogram [ECG] [EKG]
CPT/HCPCS: 80053; 85025; 93005

== ENCOUNTER 2025-05-29 16:33 | Outpatient (CLI) | payer OTHER, SELFPAY ==
--- OUTSIDE RECORDS SUMMARY | 2025-04-18 07:46 | XMS_ITS | Encounter Summary ---
[facility] Address [address] [place] [address] Care Team Providers Care Hand Rounder Name Role Phone Provider, No Known Primary Care Provider Unavail able Reason for Referral * Diagnostic Imaging (Routine) - Closed Specialty Diagnoses / Procedures Referred By Contac t Referred To Contact Radiology Diagnoses Placenta, abnormal, third trimester Large head , unspecified gestational age Procedures US [facility] Diagnostic [place] Marina Barrera DO [address] [place] [address] Phone: tel: fax: [facility] US PER DIAG CTR [address] [place] [address] Phone: tel: Referral ID Status Reason Start Date Expiration Date Visits Re quested Visits Authorized [id number] Closed 04/10/2025 07/10/2026 1 1 Reason for Visit * Diagnostic Imaging (Routine) - Closed Specialty Diagnoses / Procedures Referred By Contac t Referred To Contact Radiology Diagnoses Placenta, abnormal, third trimester Large head , unspecified gestational age Procedures [facility] Diagnostic [place] Marina Barrera DO [address] [place] [address] Phone: tel: fax: [facility] US PER DIAG [facility] [address] [place] [address] Phone: tel: Referral ID Status Reason Start Date Expiration Date Visits Re quested Visits Authorized [id number] Closed 04/10/2025 07/10/2026 1 1 Encounter Details Date Type Department Care Team (Latest Contact Info) Description 04/18/2025 8:46 AM EDT - 04/18/2025 11:59 PM EDT Hospital Encounter [facility] PER DIAG CTR [address] [place] [address] Marina Barrera, [address] [facility] [address] [place] [address] Placenta, abnormal, third trimester; Large [...] Name Priority Date/Time Associated Diagnosis Comments [facility] Routine 04/18/2025 9:59 AM EDT Placenta, abnormal, third trimester Large head , unspecified gestational age documented in this encounter Results * [facility] (04/18/2025 9:59 AM EDT) Anatomical Region Laterality Modality Ultrasound 04/18/2025 9:16 AM EDT Narrative 04/18/2025 10:05 AM EDT PAT NAME: ARACELI RIOS MED REC#: [id number] DA: [id number] PAT GEND: F PAT TYPE: O EXAM JONATHAN: [id number] REF PHYS MARINA BARRERA Comparison Studies There [...] EFW (oz) 3 oz EFW by: Hadlock ([id number]) Extended Tibia 54.2 mm 32w 0d 51% Martine Fibula 52.3 mm 32w 1d 50% Martine Foot 63.3 mm 29% Chitty Radius 46.3 mm 33w 2d 58% Martine Ulna 51.8 mm 32w 5d 45% Martine Cav. septi pel. tr 7.8 mm Digital Advertising Specialist 6.8 mm CM 5.6 mm 10% Nicolaides [...] normal IVC: normal 3-vessel view: Appears normal 6-uvkxcg-xhfhqcf view: Appears normal Rt lung: Appears normal [...] growth assessment (your office) Further ultrasounds/consultation at [facility] at your discretion Coding ======= Description: 54340-35 Detailed Ultrasound Description: 14448-95 BPP without NST Hydraulic Operator: Eneida Akers RDMS Physician: Dominguez Deleon MD Electronically signed by: Dominguez Deleon MD at: 10:05 Procedure Note Dominguez Deleon MD - 04/18/2025 PAT NAME: ARACELI RIOS MED REC#: [id number] DA: [id number] PAT GEND: F PAT TYPE: O EXAM JONATHAN: [id number] REF PHYS MARINA BARRERA Comparison Studies There are no relevant prior studies to which this study is beingcompared Patient Status Outpatient Indication ======== Concern for accessory lobe, Large head, [place] Maternal Assessment Lbkgnz276 cm Height (ft)5 ft Height (in)6 in Hfggyl766 kg Weight (lb)287 lb BMI46.61 kg/m Method ======= Transabdominal ultrasound examination. View: Adequate view ========= Dorman . Number of fetuses: 1 Dating ====== Method of dating:based on stated ANICETO GA by prior hrojhudqst32 w + 1 d ANICETO by prior assessment:06/12/2025 Ultrasound examination on:04/18/2025 GA by U/S based upon:AC, BPD, Femur, HC GA by U/S34 w + 5 d ANICETO by U/S:05/25/2025 Assigned:based on stated ANICETO, selected on 04/18/2025 Assigned GA32 w + 1 d Assigned ANICETO:06/12/2025 ooxkfj797 d Biometry Standard BPD90.0 mm 36w 3d >99% Hadlock QJR497.5 mm 36w 2d >99% Martine HC315.9 mm 35w 3d 92% Hadlock Cerebellum tr42.6 mm 33w 3d 70% Hill AC299.0 mm 33w 6d 91% Hadlock Femur64.5 mm 33w 2d 69% Hadlock Xrhykxq61.8 mm 31w 2d 29% Martine HC / AC1.06 EFW2,353 g 33w 6d 92% Hadlock EFW (lb)5 lb EFW (oz)3 oz EFW by:Hadlock ([id number]-FL) Extended Tibia54.2 mm 32w 0d 51% Martine Ntcfgm31.3 mm 32w 1d 50% Martine Foot63.3 mm 29% Chitty Uhjjvv38.3 mm 33w 2d 58% Martine Ulna51.8 mm 32w 5d 45% Martine Cav. septi pel. tr7.8 mm Vp6.8 mm CM5.6 mm 10% Nicolaides Nasal bone11.6 mm Rt Renal pelvis ap6.9 mm Lt Renal pelvis ap7.7 mm Head / Face / Neck Cephalic index0.82 75% Nicolaides Extremities / Bony Struc FL / BPD0.72 FL / HC0.20 FL / AC0.22 Other Structures CVQ293 bpm General Evaluation Cardiac activity present. FHR [...] view:Appears normal SVC:normal IVC:normal 3-vessel view:Appears normal 0-mgwyln-ejefwzx view:Appears normal Rt lung:Appears normal Lt lung:normal [...] Structures Uterus / Cervix Cervix:Visualized Approach:Transabdominal Cervical zneoyb40.5 mm Ovaries / Tubes / Adnexa Rt ovary:Visualized Lt ovary:Visualized Consultation / Office Visit Type: Consultation See [facility] for full consult note. Impression Single, [...] growth assessment (your office) Further ultrasounds/consultation at 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
--- OUTSIDE RECORDS SUMMARY | 2025-04-18 08:00 | XMS_ITS | Encounter Summary ---
Author Organization [facility] Address [address] [place] [address] Care Team Providers Care Vegetable Farmworker Name Role Phone Provider, No Known Primary Care Provider Unavail able Reason for Visit * Reason Comments Anterior accessory lobe of placenta, lar ge head Encounter Details Date Type Department Care Team (Late st Contact Info) Description 04/18/2025 9:00 AM EDT Office Visit [facility] MATERNAL MEDICINE [address] [place], [place] [phone] Dominguez Deleon MD [address] [facility] [address] [place] [phone] hydronephrosis during , antepartum, single or unspecified fetus (Primary Dx); Suspected problem with placenta not found; Vapes nicotine containing substance Social History Tobacco Use Types Packs/Day Years Used Date Smoking Tobacco: Never Smokeless Tobacco: Never Tobacco Cessation:Counseling Given: Not Answered Alcohol Use Standard Drinks/Week Comments Not Currently [...] on file documented as of this encounter Last Filed Vital Signs Vital Sign Reading Time Taken Comments Blood Pressure 108/67 04/18/2025 9:12 AM EDT Pulse - - Temperature - - Respiratory Rate - - Oxygen Saturation - - Inhaled Oxygen Concentration - - Weight 130 kg (285 lb 9.6 oz) 04/18/2025 9:12 AM EDT Height - - Body Mass Index 46.1 01/11/2023 10:24 AM EDT documented in this encounter Progress Notes * Dominguez Deleon MD - 04/18/2025 10:02 AM EDTAssociated Problem(s): hydronephrosis during , antepartum - Prior ultrasounds with concern for bilateral UTD-A1, though of note, last US on 04/09/25 did not meet diagnostic criteria for UTD-A1 as measurements were all <7mm. - Discussed finding of left-sided UTD-A1 today (7.7 mm) - Typically, UTD-A1 is self-limited and resolves either prior to delivery or shortly after Recommendations: - If UTD persists at next growth US (~36 weeks), with dilation of >7 mm, would recommend notifying pediatric care team at time of delivery and post- renal ultrasound of the infant within the first month of life with referral to Pediatric nephrology/urology as indicated - If interval resolution of the UTD is appreciated or dilation <7 mm, no further intervention isneeded * Dominguez Deleon MD - 04/18/2025 9:58 AM EDTAssociated Problem(s): Suspected problem with placenta not found - Presents today for suspected succenturiate lobe of the placenta - Transabdominal ultrasound today reveals a posterior placenta that wraps lateral to the maternal right and ends anteriorly. - No discrete accessory lobe is appreciated and it appears that the anterior portions of the placenta are connected to the main body of the placenta - The placental cord insertion is not within the anterior portion of the placenta - We discussed that even if an accessory lobe were present, that there would not be any increased risk to the - Prior scans have been without concern for any vasculature in the lower uterine segment; ourUS today confirms that, but is limited given gestational age and lie (cephalic) Recommendations: - Follow up growth assessment in 4 weeks (your office) ~36 weeks * Parul Gautam RN - 04/18/2025 9:00 AM EDT Denies vaginal bleeding, leaking fluid, and contractions. Endorses normal movement. NIPT low risk. Next OB follow-up appointment with Dr. Barrera on 04/29/25. * Dominguez Deleon MD - 04/18/2025 9:00 AM EDT Images from the original note were not included. Maternal Medicine Consult Note Date: 04/18/2025 Name: Araceli Sanders : 1995 ANICETO: Estimated Date of Delivery: 06/12/25 Referring Provider: Marina Barrera DO Chief Complaint Anterior accessory lobe of placenta, large head Subjective History of Present Illness: Araceli Sanders is a 30 y.o. 32w1d who presents today for initial consultation due to a that is complicated by a suspected accessory placental lobe. These concerns were first noted on US on 04/09/25 where an anterior accessory lobe was suspect with no vascularity in the STEFANIA appreciated. This ultrasound exam also reports mild bilateral UTD (5.6 mm,4.6 mm). Today, she is overall doing well and denies any obstetric complaints. ROS: Review of Systems Constitutional: Negative for chills and fever. Eyes: Negative for visual disturbance. Respiratory: Negative for cough and shortness of breath. Cardiovascular: Negative for chest pain. Gastrointestinal: Negative for abdominal pain, nausea and vomiting. Genitourinary: Negative for vaginal bleeding. Skin: Negative for rash. Neurological: Negative for headache. Psychiatric/Behavioral: The patient is not nervous/anxious. Past Medical History: Diagnosis Date Migraines PAC (premature atrial contraction) 2020 r/t covid, resolved now PVC (premature ventricular contraction) 2020, r/t covid, resolved now Tachycardia 2024 Dr. Lou Pozo- holter monitor, normal- follow up in 6 months Past Surgical History: Procedure Laterality Date CHOLECYSTECTOMY TONSILLECTOMY AND ADENOIDECTOMY WISDOM TOOTH EXTRACTION OB History 3 Para 1 Term 1 0 AB 1 Living 1 SAB 1 IAB 0 Ectopic 0 Molar 0 Multiple 0 Live Births 1 Current Outpatient Medications: metroNIDAZOLE (METROGEL) 0.75 % vaginal gel, Insert 1 Applicatorful into the vagina As Needed., Disp: , Rfl: miconazole (MONISTAT 1 COMBINATION PACK) 1200 & 2 MG & % kit, Insert 1 each into the vaginaAs Needed., Disp: , Rfl: Vit-Fe Fumarate-FA (GNP ) 28-0.8 MG tablet, Take 1 tablet by mouth Daily., Disp: ,Rfl: MAGNESIUM GLYCINATE PO, Take 400 mg by mouth 2 (Two) Times a Day., Disp: , Rfl: Objective Vital Signs BP 108/67 Wt 130 kg (285 lb 9.6 oz) Estimated body mass index is 46.1 kg/m?? as calculated from the following: Height as of 01/11/23: 167.6 cm (66 ). Weight as of this encounter: 130 kg (285 lb 9.6 oz). Physical Exam Vitals and nursing note reviewed. Constitutional: General: She is not in acute distress. Appearance: Normal appearance. She is obese. HENT: Head: Normocephalic. Pulmonary: Effort: Pulmonary effort is normal. No respiratory distress. Abdominal: Tenderness: There is no abdominal tenderness. Skin: General: Skin is warm and dry. Neurological: Mental Status: She is alert. Psychiatric: Mood and Affect: Mood normal. Behavior: Behavior normal. Ultrasound Impression: Single, live intrauterine at 32w1d in cephalic lie size is appropriate for the reported ANICETO Amniotic fluid volume is within normal limits Left-sided UTD-A1 The visualized portions of the anatomy (see table) appear normal No other abnormalities were appreciated within the limitations of ultrasound at this gestational age Assessment and Plan Diagnoses and all orders for this visit: 1. hydronephrosis during , antepartum, single or unspecified fetus (Primary) Assessment & Plan: - Prior ultrasounds with concern for bilateral UTD-A1, though of note, last US on 04/09/25 did not meet diagnostic criteria for UTD-A1 as measurements were all <7mm. - Discussed finding of left-sided UTD-A1 today (7.7 mm) - Typically, UTD-A1 is self-limited and resolves either prior to delivery or shortly after Recommendations: - If UTD persists at next growth US (~36 weeks), with dilation of >7 mm, would recommend notifying pediatric care team at time of delivery and post-jenn renal ultrasound of the within the first month of life with referral to Pediatric nephrology/urology as indicated - If interval resolution of the UTD is appreciated or dilation <7 mm, no further intervention isneeded 2. Suspected problem with placenta not found Assessment & Plan: - Presents today for suspected succenturiate lobe of the placenta - Transabdominal ultrasound today reveals a posterior placenta that wraps lateral to the maternal right and ends anteriorly. - No discrete accessory lobe is appreciated and it appears that the anterior portions of the placenta are connected to the main body of the placenta - The placental cord insertion is not within the anterior portion of the placenta - We discussed that even if an accessory lobe were present, that there would not be any increased risk to the - Prior scans have been without concern for any vasculature in the lower uterine segment; ourUS today confirms that, but is limited given gestational age and lie (cephalic) Recommendations: - Follow up growth assessment in 4 weeks (your office) ~36 weeks 3. Vapes nicotine containing substance Follow Up Return as needed. I spent 30 minutes caring for the patient on the day of service. This included: obtaining or reviewing a separately obtained medical history, reviewing patient records, performing a medically appropriate exam and/or evaluation, counseling or educating the patient/family/caregiver, ordering medications, labs, and/or procedures and documenting such in the medical record. This does not include time spent on review and interpretation of other tests such as ultrasound or the performance of other procedures such as amniocentesis or CVS. Dominguez Deleon MD, FACOG Maternal Medicine, [facility] documented in this encounter Plan of Treatment Not on file documented as of this encounter Visit Diagnoses Diagnosis hydronephrosis during , antepartum, single or unspecified fetus- Primary Suspected problem with placenta not found Suspected placental problem not found Vapes nicotine containing substance documented in this encounter Care Teams Vegetable Farmworker Relationship Specialty Start Date End Date Provider, [place] [address] PCP - General 04/10/25 documented as of this encounter
--- OUTSIDE RECORDS SUMMARY | 2025-05-29 16:37 | XMS_ITS | Data Portability ---
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 Lab cytology report, thin prep, smear or scraping, cervical or vaginal 2022 023 [facility], [address], [place], [address], 3 12:13:17 TSH + free T4, serum 2022 023 [facility]L [facility], [address], [place], [address], 3 10:36:51 testosteron e, free + total, serum 2022 023 [facility], [address], [place], [address], 3 10:36:52 HbA1c (hemoglobin A1c), blood 2022 023 [facility] [facility], [address], [place], [address], 3 10:36:55 test, urine 2022 023 [facility] 2 Davidson Floral Assistant, [address] [place] [address] , [place], [address], 3 16:31:01 vaginal pathogens panel, AVIVA+probe, vaginal fluid 2022 023 [facility] [facility], [address], [place], [address], 3 10:36:50 HIV 1 + 2, meaningful use set 2022 023 [facility] [facility], [address], [place], [address], 3 10:36:52 RPR (rapid plasma reagin), serum 2022 023 [place] [facility], [address], [place], [address], 3 10:36:53 HBsAg (hepatitis B surface Ag), EIA, serum 2022 023 [place] [facility], [address], [place], [address], 3 10:36:56 Hepatitis C IgG Ab, qual, serum 2022 023 [facility] [facility], [address], [place], [address], 3 10:36:54 cytology report, thin prep, smear or scraping, cervical or vaginal 2022 023 [facility] [facility], [address], [place], [address], 3 13:07:39 CBC w/ auto diff 2021 022 [facility]( Lab), [address] [place] [address] [place], [address], 2 12:15:31 CMP, serum or plasma 2021 022 [facility]( Lab), [address] [place] [address] [place], [address], 2 16:27:52 urinalysis, reflex culture 2021 [facility]( Lab), [address] [place] [address] [place], [address], 2 18:13:34 Pap smear tests - FPAR 2.0 set 2021 022 [facility] [facility], [address], [place], [address], 2 13:09:33 test, urine 2021 022 [email or web address] [facility], [address] [place] [address] , [place], [address], 2 14:59:48 culture, urine 2021 022 [facility] [facility], [address], [place], [address], 2 22:07:17 urinalysis, dipstick 2021 022 [email or web address] Davidson Floral Assistant, [address] [place] [address] , [place], [address], 09:23:09 Referral gynecologic surgery referral - lap b/l salpingecto my 2021 022 [email or web address] Not available 12:43:16 Procedures None recorded. Surgeries None recorded. Imaging None recorded. Medication Orders Prelief 65 mg tablet 2021 022 [email or web address] [facility] - [address], [place], [address], 13:08:44 Patient TargetsNo targets recorded. Patient Instructions Encounter Date Encounter Id Patient Instructions Last Modified By Organization Details Last Modified Time 09/24/2021 [id number] Increase fluids Avoid soda and tea Will send urine for culture and call with results. If urine culture is positive, will call in an antibiotic. [email or web address] Not available 09/24/2021 10:24:55 01/12/2022 [id number] Interstitial cystitis questionnaire given and score positive for IC. Discussed IC care guide as well as first line treatments including dietary changes and OTC prelief. Rx prelief given Pap obtained Will sign sterilization paperwork and RTO for preop for lap b/l salpingectomy. 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 Will peer counselor on PNV at next visit -Depression screening: PHQ 9 negative -Family Hx: Mother with hx of cervical cancer and leiomyoma Vaginal pain/pelvic pain/dysuapreunia: will get ER records. Pt reports enlarged mesentry. Will get CT scan results. Return for pelvic US Brienbessy deisres excision of sebaceous cysts from her vulva. Will perform this as well upon return [email or web address] Not available 07/29/2022 13:27:23 01/05/2023 [id number] Given post-coita l bleeding and hx of cervical dysplasia, pap collected, but also recommended colpo and she agrees. Given AUB, check labs and return for US. Also performing for pelvic pain Full STI testing performed today [email or web address] Not available 01/09/2023 16:32:35 Reason for Referral Gynecologic Surgery Referral for Sterilization requested lap b/l salpingectomy Referring Physician: Alis Mays, PAINTER ROUGH, Encounter Date: 01/12/2022 Results Created Date Observation Date Name Description Value Unit Range Abnormal Flag Note LastModifiedBy Organization Detail LastModifiedTime 09/10/19 22 09/10/2021 rapid strep group A, throa t Strep negati ve Not Available [address] , [place], [address], 09/10/2021 15:09:41 09/25/19 22 09/25/2021 URINE CULTU REEVIN NE urine culture, routine Final report Not Available [facility] ([facility]) [address] [place], [address], 09/25/2021 22:07:17 09/25/19 22 09/25/2021 URINE CULTU REEVIN NE result 1 No growth Not Available [facility] ([facility]) [address] [place], [address], 09/25/2021 22:07:17 09/25/19 22 09/24/2021 urina lysis , dipst ick Leukocytes Modera te Not Available [facility] [address] [place] [address] , [place], [address], 09/24/2021 09:11:16 09/25/19 22 09/24/2021 urina lysis , dipst ick Nitrite negati ve Not Available [facility] [address] [place] [address] , [place], [address], 09/24/2021 09:11:16 09/25/19 22 09/24/2021 urina lysis , dipst ick Urobilinogen .2 Not Available [facility] ille Floral Assistant [address] [place] [address] , [place], [address], 09/24/2021 09:11:16 09/25/19 22 09/24/2021 urina lysis , dipst ick Protein Negati ve Not Available [facility] [address] [place] [address] , [place], [address], 09/24/2021 09:11:16 09/25/19 22 09/24/2021 urina lysis , dipst ick pH 6.5 Not Available [facility]/[address] , [place], [address], 09/24/2021 09:11:16 09/25/19 22 09/24/2021 urina lysis , dipst ick Blood Modera te Not Available [facility]/[address] , [place], [address], 09/24/2021 09:11:16 09/25/19 22 09/24/2021 urina lysis , dipst ick Specific [place] 1.030 Not Available [facility] lle Floral Assistant [address] [place] [address] , [place], [address], 09/24/2021 09:11:16 09/25/19 22 09/24/2021 urina lysis , dipst ick Ketone Negati ve Not Available [facility] [address] [place] [address] , [place], [address], 09/24/2021 09:11:16 09/25/19 22 09/24/2021 urina lysis , dipst ick Bilirubin Negati ve Not Available [facility] [address] [place] [address] , [place], [address], 09/24/2021 09:11:16 09/25/19 22 09/24/2021 urina lysis , dipst ick Glucose Negati ve Not Available [facility] [address] [place] [address] , [place], [address], 09/24/2021 09:11:16 09/25/19 22 09/24/2021 urina lysis , dipst ick Appearance Slight ly Cloudy Not Available [facility] [address] [place] [address] , [place], [address], 09/24/2021 09:11:16 09/25/19 22 09/24/2021 urina lysis , dipst ick Color Yellow Not Available [facility] [address] [place] [address] , [place], [address], 09/24/2021 09:11:16 01/13/20 22 01/14/2022 IGP,R FX APTIM A HPV ALL PTH diagnosis: Commen t NEGAT BALBINA FOR INTRA EPITH ELIAL LESIO N OR MAGGIE SMITH . PREDO RANDA CE OF [place] BACIL LI CONSI STENT WITH SHIFT IN VAGIN AL ARSLAN IS PRESE NT. Not Available [facility] ([facility]) [address] [facility], [place], [address], 01/14/2022 13:09:33 01/13/20 22 01/14/2022 IGP,R FX APTIM A HPV ALL PTH specimen adequacy: Commen t Satis facto ry for evalu ation . Endoc ervic al and/o r squam ous metap lasti c cells (endo cervi kim compo nent) are prese nt. Not Available [facility] ([facility]) [address] [facility], [place], [address], 01/14/2022 13:09:33 01/13/20 22 01/14/2022 IGP,R FX APTIM A HPV ALL PTH clinician provided ICD10: Commen t R87.6 19 Not Available [facility] ([facility]) [address] [place], [address], 01/14/2022 13:09:33 01/13/20 22 01/14/2022 IGP,R FX APTIM A HPV ALL PTH performed by: Alejandro Huston Not Available [facility] ([facility]) [address] [place], [address], 01/14/2022 13:09:33 01/13/20 22 01/14/2022 IGP,R FX APTIM A HPV ALL PTH . . Not Available [facility] ([facility]) [address] [place], [address], 01/14/2022 13:09:33 01/13/20 22 01/14/2022 IGP,R FX APTIM A HPV ALL PTH note: Monae aldana The Pap smear is a scree yani test desig vahe to aid in the detec tion of shanai ligna nt and malig nant condi tions of the uteri ne cervi x. It is not a diagn ostic proce dure and shoul d not be used as the sole means of detec ting cervi kim cance r. Both false -posi tive and false -nega tive repor ts do occur . Not Available [facility] ([facility]) [address] [place], [address], 01/14/2022 13:09:33 01/13/20 22 01/14/2022 IGP,R FX APTIM A HPV ALL PTH test methodology: Monae aldana This liqui d based ThinP rep(R ) pap test was scree vahe with the use of an image guide anatoliy gill. Not Available [facility] ([facility]) [address] [place], [address], 01/14/2022 13:09:33 01/13/20 22 01/14/2022 IGP,R FX APTIM A HPV ALL PTH . Commen t The HPV DNA refle x crite matthias were not met with this speci men resul t there fore, no HPV testi ng was perfo rmed. Not Available [facility] ([facility]) [address] [facility], [place], [address], 01/14/2022 13:09:33 01/13/20 22 01/12/2022 pregn arminda test, urine HCG negati ve Not Available [facility] [address] [facility] , [place], [address], 01/12/2022 14:37:35 02/10/20 22 02/09/2022 CBC W/AUT O DIFFE RENTI AL note See Note Order ing Provi tata: Yolanda Ch (Appl eton) Not Available [address] , [place], [address], 02/09/2022 14:27:37 02/10/20 22 02/09/2022 CBC W/AUT O DIFFE RENTI AL white blood cell 8.4 10e3/ uL 4.5-13 .0 normal Not Available [address] Neha Martinez, [place], [address], 02/09/2022 14:27:37 02/10/20 22 02/09/2022 CBC W/AUT O DIFFE RENTI AL red blood cell 4.27 10e6/ uL 3.80-5 .10 normal Not Available [address] [place], [address], 02/09/2022 14:27:37 02/10/20 22 02/09/2022 CBC W/AUT O DIFFE RENTI AL hemoglobin 12.8 g/dL 11.5-1 5.3 normal Not Available [address] , [place], [address], 02/09/2022 14:27:37 02/10/20 22 02/09/2022 CBC W/AUT O DIFFE RENTI AL hematocrit 38.6 % 34.0-4 6.0 normal Not Available [address] [place]ha Martinez, [place], [address], 02/09/2022 14:27:37 02/10/20 22 02/09/2022 CBC W/AUT O DIFFE RENTI AL mean cell volume 90 fL 78.0-9 8.0 normal Not Available [address] [place]ha Martinez, [place], [address], 02/09/2022 14:27:37 02/10/20 22 02/09/2022 CBC W/AUT O DIFFE RENTI AL mean cell HGB 30.0 pg 25.0-3 5.0 normal Not Available [address] [place]ha [place], [place], [address], 02/09/2022 14:27:37 02/10/20 22 02/09/2022 CBC W/AUT O DIFFE RENTI AL mean cell HGB concentratio n 33.2 g/dL 31.0-3 6.0 normal Not Available [address] [place], [place], [address], 02/09/2022 14:27:37 02/10/20 22 02/09/2022 CBC W/AUT O DIFFE RENTI AL red cell distribution width 13.3 % 11.0-1 5.0 normal Not Available [address] [place]ha [place], [place], [address], 02/09/2022 14:27:37 02/10/20 22 02/09/2022 CBC W/AUT O DIFFE RENTI AL platelet count 223 10e3/ uL 150-40 0 normal Not Available [address] [place], [place], [address], 02/09/2022 14:27:37 02/10/20 22 02/09/2022 CBC W/AUT O DIFFE RENTI AL immature granulocyte % 0 0-1 normal Not Available [address] , [place], [address], 02/09/2022 14:27:37 02/10/20 22 02/09/2022 CBC W/AUT O DIFFE RENTI AL neutrophil % 71 % 35-75 normal Not Available [address] , [place], [address], 02/09/2022 14:27:37 02/10/20 22 02/09/2022 CBC W/AUT O DIFFE RENTI AL lymphocyte % 23 % 10-50 normal Not Available [address] , [place], [address], 02/09/2022 14:27:37 02/10/20 22 02/09/2022 CBC W/AUT O DIFFE RENTI AL monocyte % 6 % 0-15 normal Not Available [address] , [place], [address], 02/09/2022 14:27:37 02/10/20 22 02/09/2022 CBC W/AUT O DIFFE RENTI AL eosinophil % 0 % 0-5 normal Not Available [address] [place] Martinez, [place], [address], 02/09/2022 14:27:37 02/10/20 22 02/09/2022 CBC W/AUT O DIFFE RENTI AL basophil % 0 % 0-5 normal Not Available [address] , [place], [address], 02/09/2022 14:27:37 02/10/20 22 02/09/2022 CBC W/AUT O DIFFE RENTI AL immature granulocyte # 0.02 x1000 /uL 0-0.05 normal Not Available [address] , [place], [address], 02/09/2022 14:27:37 02/10/20 22 02/09/2022 CBC W/AUT O DIFFE RENTI AL neutrophil # 5.90 x1000 /uL 1.50-8 .00 normal Not Available [address] , [place], [address], 02/09/2022 14:27:37 02/10/20 22 02/09/2022 CBC W/AUT O DIFFE RENTI AL lymphocyte # 1.92 x1000 /uL 1.20-5 .20 normal Not Available [address] , [place], [address], 02/09/2022 14:27:37 02/10/20 22 02/09/2022 CBC W/AUT O DIFFE RENTI AL monocyte # 0.49 x1000 /uL 0.40-0 .90 normal Not Available [address] [place], [place], [address], 02/09/2022 14:27:37 02/10/20 22 02/09/2022 CBC W/AUT O DIFFE RENTI AL eosinophil # 0.02 x1000 /uL 0.00-0 .50 normal Not Available [address] [place], [place], [address], 02/09/2022 14:27:37 02/10/20 22 02/09/2022 CBC W/AUT O DIFFE RENTI AL basophil # 0.02 x1000 /uL 0.00-0 .30 normal Not Available [address] , [place], [address], 02/09/2022 14:27:37 02/10/20 22 02/09/2022 CBC W/AUT O DIFFE RENTI AL NRBC automated 0.0 /100_ WBC Not Available [address] , [place], [address], 02/09/2022 14:27:37 02/10/20 22 02/09/2022 CBC W/AUT O DIFFE SIMÓN VOGT performing lab see note ML - [facility] [address] [facility] [id number] Not Available [address] , [place], [address], 02/09/2022 14:27:37 02/10/20 22 02/09/2022 COMP METAB OLIC PANEL note See Note Order ing Provi tata: Yolanda Ch (Appl eton) Not Available [address] , [place], [address], 02/09/2022 14:41:10 02/10/20 22 02/09/2022 COMP METAB OLIC PANEL sodium 138 mmol/ L 136-14 5 normal Not Available [address] , [place], [address], 02/09/2022 14:41:10 02/10/20 22 02/09/2022 COMP METAB OLIC PANEL potassium 4.1 mmol/ L 3.5-5. 1 normal Not Available [address] , [place], [address], 02/09/2022 14:41:10 02/10/20 22 02/09/2022 COMP METAB OLIC PANEL chloride 103 mmol/ L 98-107 normal Not Available [address] , [place], [address], 02/09/2022 14:41:10 02/10/20 22 02/09/2022 COMP METAB OLIC PANEL carbon dioxide 26 mmol/ L 24-33 normal Not Available [address] , [place], [address], 02/09/2022 14:41:10 02/10/20 22 02/09/2022 COMP METAB OLIC PANEL anion gap 13.1 mmol/ L 10-20 normal Not Available [address] , [place], [address], 02/09/2022 14:41:10 02/10/20 22 02/09/2022 COMP METAB OLIC PANEL glucose 86 mg/dL 70-99 normal Not Available [address] [place], [place], [address], 02/09/2022 14:41:10 02/10/20 22 02/09/2022 COMP METAB OLIC PANEL blood urea nitrogen 12 mg/dL 7-18 normal Not Available [address] , [place], [address], 02/09/2022 14:41:10 02/10/20 22 02/09/2022 COMP METAB OLIC PANEL creatinine 1.06 mg/dL 0.55-1 .02 high Not Available [address] [place], [place], [address], 02/09/2022 14:41:10 02/10/20 22 02/09/2022 COMP METAB OLIC PANEL BUN/creatini ne ratio 11 12-20 low Not Available [address] [place], [place], [address], 02/09/2022 14:41:10 02/10/20 22 02/09/2022 COMP METAB OLIC PANEL total protein 7.8 g/dL 6.4-8. 2 normal Not Available [address] , [place], [address], 02/09/2022 14:41:10 02/10/20 22 02/09/2022 COMP METAB OLIC PANEL albumin 4.0 g/dL 3.4-5. 0 normal Not Available [address] [place], [address], 02/09/2022 14:41:10 02/10/20 22 02/09/2022 COMP METAB OLIC PANEL globulin 3.8 g/dL 1.5-4. 0 normal Not Available [address] [place], [address], 02/09/2022 14:41:10 02/10/20 22 02/09/2022 COMP METAB OLIC PANEL albumin/glob ulin ratio 1.1 0.5-2. 0 normal Not Available [address] [place], [address], 02/09/2022 14:41:10 02/10/20 22 02/09/2022 COMP METAB OLIC PANEL calcium 9.4 mg/dL 8.5-10 .1 normal Not Available [address] , [place], [address], 02/09/2022 14:41:10 02/10/20 22 02/09/2022 COMP METAB OLIC PANEL osmolality serum calculated 274 mOsm/ kg 272-28 8 normal Not Available [address] [place], [address], 02/09/2022 14:41:10 02/10/20 22 02/09/2022 COMP METAB OLIC PANEL glom filtr rate (estimated) > 60 mL/mi n >60 normal Not Available [address] [place], [address], 02/09/2022 14:41:10 02/10/20 22 02/09/2022 COMP METAB OLIC PANEL GFR est (if -amer ican) > 60 mL/mi n >60 normal Not Available [address] [place], [address], 02/09/2022 14:41:10 02/10/20 22 02/09/2022 COMP METAB OLIC PANEL bilirubin total 0.4 mg/dL 0.2-1. 0 normal Use of this assay is not recom maxim d for patie nts under going treat ment with Eltro mbopa g due to the poten tial for false ly eleva idris resul ts. Not Available [address] , [place], [address], 02/09/2022 14:41:10 02/10/20 22 02/09/2022 COMP METAB OLIC PANEL SGOT/AST 12 U/L 15-37 low Not Available [address] [place], [address], 02/09/2022 14:41:10 02/10/20 22 02/09/2022 COMP METAB OLIC PANEL SGPT/ALT 18 U/L 14-59 normal Not Available [address] , [place], [address], 02/09/2022 14:41:10 02/10/20 22 02/09/2022 COMP METAB OLIC PANEL alkaline phosphatase total 35 U/L 46-116 low Not Available [address] , [place], [address], 02/09/2022 14:41:10 02/10/20 22 02/09/2022 COMP METAB OLIC PANEL performing lab see note - [facility] R [address] [facility] [address] Not Available [address] [place], [address], 02/09/2022 14:41:10 02/10/20 22 02/09/2022 URINA LYSIS COMPL ETE note See Note Order ing Provi tata: Yolanda Ch (Appl eton) Not Available [address] [place], [address], 02/09/2022 14:42:16 02/10/20 22 02/09/2022 URINA LYSIS COMPL ETE UA method of collection CLEAN CATCH Not Available [address] [place], [place], [address], 02/09/2022 14:42:16 02/10/20 22 02/09/2022 URINA LYSIS COMPL ETE UA color LT YELLOW yellow Not Available [address] , [place], [address], 02/09/2022 14:42:16 02/10/20 22 02/09/2022 URINA LYSIS COMPL ETE UA appearance SL.MICHELE UDY clear Not Available [address] , [place], [address], 02/09/2022 14:42:16 02/10/20 22 02/09/2022 URINA LYSIS COMPL ETE UA glucose dipstick NEGATI VE negati ve Not Available [address]ha [place], [place], [address], 02/09/2022 14:42:16 02/10/20 22 02/09/2022 URINA LYSIS COMPL ETE UA bilirubin dipstick NEGATI VE negati ve Not Available [address] [place], [place], [address], 02/09/2022 14:42:16 02/10/20 22 02/09/2022 URINA LYSIS COMPL ETE UA ketone dipstick NEGATI VE negati ve Not Available [address] [place], [address], 02/09/2022 14:42:16 02/10/20 22 02/09/2022 URINA LYSIS COMPL ETE UA specific gravity 1.010 1.005- 1.030 normal Not Available [address] [place], [address], 02/09/2022 14:42:16 02/10/20 22 02/09/2022 URINA LYSIS COMPL ETE UA blood dipstick 3+ negati ve abnormal Not Available [address] [place], [address], 02/09/2022 14:42:16 02/10/20 22 02/09/2022 URINA LYSIS COMPL ETE UA pH dipstick 7.0 5.0-9. 0 normal Not Available [address] [place], [address], 02/09/2022 14:42:16 02/10/20 22 02/09/2022 URINA LYSIS COMPL ETE UA protein dipstick NEGATI VE negati ve Not Available [address] [place], [address], 02/09/2022 14:42:16 02/10/20 22 02/09/2022 URINA LYSIS COMPL ETE UA urobilinogen dipstick NEGATI VE mg/dL <1 Not Available [address] , [place], [address], 02/09/2022 14:42:16 02/10/20 22 02/09/2022 URINA LYSIS COMPL ETE UA nitrite dipstick NEGATI VE negati ve Not Available [address] [place], [address], 02/09/2022 14:42:16 02/10/20 22 02/09/2022 URINA LYSIS COMPL ETE UA leukocyte esterase dipstick 2+ negati ve abnormal Not Available [address] [place], [address], 02/09/2022 14:42:16 02/10/20 22 02/09/2022 URINA LYSIS COMPL ETE UA RBC 0-5 RBC/h pf none seen abnormal Not Available [address] , [place], [address], 02/09/2022 14:42:16 02/10/20 22 02/09/2022 URINA LYSIS COMPL ETE UA WBC 0-5 WBC/h pf 0-5 Not Available [address] , [place], [address], 02/09/2022 14:42:16 02/10/20 22 02/09/2022 URINA LYSIS COMPL ETE UA epithelial cells 21-30 SQUAMO US epi/h pf 0-5 abnormal Not Available [address] , [place], [address], 02/09/2022 14:42:16 02/10/20 22 02/09/2022 URINA LYSIS COMPL ETE UA bacteria 1+ none seen abnormal Not Available [address] , [place], [address], 02/09/2022 14:42:16 02/10/20 22 02/09/2022 URINA LYSIS COMPL ETE UA mucus NONE SEEN none seen Not Available [address] , [place], [address], 02/09/2022 14:42:16 02/10/20 22 02/09/2022 URINA LYSIS COMPL ETE UA amorphous sediment NONE SEEN none seen Not Available [address] , [place], [address], 02/09/2022 14:42:16 02/10/20 22 02/09/2022 URINA LYSIS COMPL ETE comment 1 >20 EPI'S No Cultu re Perfo rmed. Speci men faile d Refle x Cultu re Crite matthias. Not Available [address] [place], [address], 02/09/2022 14:42:16 02/10/20 22 02/09/2022 URINA LYSIS COMPL ETE performing lab see note - [facility] R [address] [facility] [id number] Not Available [facility] [address], [place], [address], 02/09/2022 14:42:16 07/20/19 23 07/23/2022 IGP, APTIM A HPV, RFX 16/18 ,45 HPV aptima Negati ve negati ve This nucle ic acid ampli ficat ion test detec ts fourt een high- risk HPV types (16,1 8,31, 33,35 ,39,4 5,51, 52,56 ,58,5 9,66, 68) witho ut diffe renti ation . Not Available [facility] (Lab) [address] [address], [place], [address], 07/25/2022 13:07:39 07/20/19 23 07/25/2022 IGP, APTIM A HPV, RFX 16/18 ,45 diagnosis: Commen t NEGAT BALBINA FOR INTRA EPITH ELIAL LESIO N OR MAGGIE SMITH . PREDO MINAN CE OF [place] BACIL LI CONSI STENT WITH SHIFT IN VAGIN AL ARSLAN IS PRESE NT. Not Available [facility] (Lab) [address] [address], [place], [address], 07/25/2022 13:07:39 07/20/19 23 07/25/2022 IGP, APTIM A HPV, RFX 16/18 ,45 specimen adequacy: Commen t Satis facto ry for evalu ation . No endoc ervic al compo nent is ident ified . Not Available [facility] (Lab) [address] [facility], [place], [address], 07/25/2022 13:07:39 07/20/19 23 07/25/2022 IGP, APTIM A HPV, RFX 16/18 ,45 clinician provided ICD10: Monae aldana Z12.4 Not Available [facility] (Lab) [id number] [place] [address], [place], [address], 07/25/2022 13:07:39 07/20/19 23 07/25/2022 IGP, APTIM A HPV, RFX 16/18 ,45 performed by: Monae Garcia Sr, Cytojovan aldana (ASCP ) Not Available [facility] (Lab) [address] [address], [place], [address], 07/25/2022 13:07:39 07/20/19 23 07/25/2022 IGP, APTIM A HPV, RFX 16/18 ,45 . . Not Available [facility] (Lab) [id number] [place] [address], [place], [address], 07/25/2022 13:07:39 07/20/19 23 07/25/2022 IGP, APTIM [...] Not Available [facility] ([facility]) [address] [address], [place], [address], 07/25/2022 13:07:39 07/20/19 23 07/25/2022 IGP, APTIM A HPV, RFX 16/18 ,45 test methodology: Monae aldana This liqui d based ThinP rep(R ) pap test was scree vahe with the use of an image guide anatoliy lance Not Available [facility] (Lab) [id number] [place] [address], [place], [address], 07/25/2022 13:07:39 07/20/19 23 07/25/2022 IGP, APTIM A HPV, RFX 16/18 ,45 HPV genotype reflex Commen t Crite matthias not met, HPV Genot ype not perfo rmed. Not Available [facility] ([facility]) [address], [place], [address], 07/25/2022 13:07:39 01/06/20 23 01/06/2023 NUSWA B VAGIN ITIS PLUS (VG+) atopobium vaginae Low - 0 score Not Available [facility] ([facility]) [address] [place], [address], 01/11/2023 10:36:49 01/06/20 23 01/06/2023 NUSWA B VAGIN ITIS PLUS (VG+) bvab 2 Modera te - 1 score Not Available [facility] ([facility]) [address] [facility], [place], [address], 01/11/2023 10:36:49 01/06/20 23 01/06/2023 NUSWA B [...] Admin istra tion. Not Available [facility] ([facility]) [address] [place], [address], 01/11/2023 10:36:49 01/06/20 23 01/06/2023 NUSWA B VAGIN ITIS PLUS (VG+) bisi albicans, AVIVA Negati ve negati ve Not Available [facility] ([facility]) [address] [facility], [place], [address], 01/11/2023 10:36:49 01/06/20 23 01/06/2023 NUSWA B VAGIN ITIS PLUS (VG+) bisi glabrata, AVIVA Negati ve negati ve Not Available [facility] ([facility]) [address] [facility], [place], [address], 01/11/2023 10:36:49 01/06/20 23 01/06/2023 NUA B VAGIN ITIS PLUS (VG+) trich vag by AVIVA Negati ve negati ve Not Available [facility] ([facility]) [address] [facility], [place], [address], 01/11/2023 10:36:49 01/06/20 23 01/06/2023 NUSWA B VAGIN ITIS PLUS (VG+) chlamydia trachomatis, AVIVA Negati ve negati ve Not Available [facility] ([facility]) [address] [facility], [place], [address], 01/11/2023 10:36:49 01/06/20 23 01/06/2023 NUSWA B VAGIN ITIS PLUS (VG+) neisseria gonorrhoeae, AVIVA Negati ve negati ve Not Available [facility] ([facility]) [address] [place], [address], 01/11/2023 10:36:49 01/06/20 23 01/06/2023 TSH+F REE T4 TSH 0.400 uIU/m L 0.450- 4.500 below low normal Not Available [facility] ([facility]) [address] [place], [address], 01/11/2023 10:36:51 01/06/20 23 01/06/2023 TSH+F REE T4 T4,free(dire ct) 1.17 NG/dL 0.82-1 .77 Not Available [facility] ([facility]) [address] [place], [address], 01/11/2023 10:36:51 01/06/20 23 01/06/2023 TESTO STERO NE,FR EE AND TOTAL testosterone 46 NG/dL 13- Not Available [facility] ([facility]) [address] [facility], [place], [address], 01/11/2023 10:36:51 01/06/2001/11/2023 TESTO STERO NE,FR EE AND TOTAL free testosterone (direct) 1.0 pg/mL 0.0-4. 2 Not Available [facility] ([facility]) [address] [facility], [place], [address], 01/11/2023 10:36:51 01/06/20 23 01/06/2023 HIV AB/P2 4 AG WITH REFLE X HIV Ab/P24 Ag screen Non Reacti ve non reacti ve HIV Negat balbina HIV-1 /HIV- 2 antib odies and HIV-1 p24 antig en were NOT detec idris. There is no labor atory evide nce of HIV infec tion. Not Available [facility] ([facility]) [address] [facility], [place], [address], 01/11/2023 10:36:52 01/06/20 23 01/06/2023 RPR, RFX QN RPR/C ONFIR M TP RPR Non Reacti ve non reacti ve Not Available [facility] ([facility]) [address] [facility], [place], [address], 01/11/2023 10:36:53 01/06/20 23 01/06/2023 HCV ANTIB [...] HCV infec tion. Not Available [facility] ([facility]) [address] [facility], [place], [address], 01/11/2023 10:36:54 01/06/20 23 01/06/2023 HEMOG LOBIN A1C hemoglobin A1C 4.7 % 4.8-5. 6 below low normal Predi abete s: 5.7 - 6.4 Diabe danilo: >6.4 Glyce morena contr ol for adult s with diabe danilo: <7.0 Not Available [facility] ([facility]) [address] [facility], [place], [address], 01/11/2023 10:36:55 01/06/2001/06/2023 HBSAG SCREE N HBsAg screen Negati ve negati ve Not Available [facility] ([facility]) [address] [facility], [place], [address], 01/11/2023 10:36:56 01/07/2001/06/2023 IGP, APTIM A HPV, RFX 16/18 ,45 HPV aptima Negati ve negati ve This nucle ic acid ampli ficat ion test detec ts fourt een high- risk HPV types (16,1 8,31, 33,35 ,39,4 5,51, 52,56 ,58,5 9,66, 68) witho ut diffe renti ation . Not Available [facility] ([facility]) [address] [facility], [place], [address], 01/07/2023 12:13:17 01/07/20 23 01/07/2023 IGP, APTIM A HPV, RFX 16/18 ,45 diagnosis: Commen t NEGAT BALBINA FOR INTRA EPITH ELIAL LESIO N OR MALIG LUIS . SPECI MEN REPRO CESSE D FOR INTER PRETA TION USING GLACI AL ACETI C ACID (GAA) . Not Available [facility] ([facility]) [address] [place], [address], 01/07/2023 12:13:17 01/07/20 23 01/07/2023 IGP, APTIM A HPV, RFX 16/18 ,45 specimen adequacy: Monae aldana Satis facto ry for evalu ation . Endoc ervic al and/o r squam ous metap lasti c cells (endo cervi kim compo nent) are prese nt. Areas of parti ally obscu ring blood are prese nt. Not Available [facility] ([facility]) [address] [place], [address], 01/07/2023 12:13:17 01/07/2001/07/2023 IGP, APTIM A HPV, RFX 16/18 ,45 clinician provided ICD10: Monae aldana Z11.3 N93.9 N93.0 Not Available [facility] ([facility]) [address] [place], [address], 01/07/2023 12:13:17 01/07/20 23 01/07/2023 IGP, APTIM A HPV, RFX 16/18 ,45 performed by: Monae jesus, Cytot stefany aldana (ASCP ) Not Available [facility] ([facility]) [address] [place], [address], 01/07/2023 12:13:17 01/07/2001/07/2023 IGP, APTIM A HPV, RFX 16/18 ,45 . . Not Available [facility] ([facility]) [address] [place], [address], 01/07/2023 12:13:17 01/07/20 23 01/07/2023 IGP, APTIM [...] do occur . Not Available [facility] ([facility]) [address] [facility], [place], [address], 01/07/2023 12:13:17 01/07/20 23 01/07/2023 IGP, APTIM A HPV, RFX 16/18 ,45 test methodology: Remaen t This liqui d based ThinP rep(R ) pap test was scree vahe with the use of an image guide anatoliy gill. Not Available [facility] ([facility]) [address] [facility], [place], [address], 01/07/2023 12:13:17 01/07/20 23 01/07/2023 IGP, APTIM A HPV, RFX 16/18 ,45 HPV genotype reflex Commen t Crite matthias not met, HPV Genot ype not perfo rmed. Not Available [facility] ([facility]) [address] [place], [address], 01/07/2023 12:13:17 01/10/20 23 01/09/2023 pregn arminda test, urine HCG negati ve Not Available [facility] [employer] [address] [facility] , [place], [address], 01/09/2023 16:30:54 10/17/19 22 10/16/2021 CT, abdom en + pelvi s, w/o contr ast No observ ation record ed. [email or web address] [facility] ([facility] [address], [place], [place], [address], 10/18/2021 23:08:20 11/22/19 22 11/21/2021 XR, chest , 2 view No observ ation record ed. [address], [place], [address], 11/25/2021 11:38:59 11/22/19 22 11/21/2021 imagi ng/di agnos tic resul t No observ ation record ed. [address], [place], [address], 11/25/2021 11:38:47 Result Notes None recorded. Problems Name Problem SNOMED Code Status Onset Date Resolution Date Notes Provider Name and Address Organization Details Recorded Time Anemia of pregnanc y 43599490 Completed 09/25/2019 Removal Reason: resolved Zainab Ch MD [address], [place], [address] , [place] [facility] 17:43:51 Body mass index 30+ - obesity 459409235 Completed 201709/24/2021 Araseli Mills APRN [address], [place], [address] , [place] [facility] 10:23:33 Polycyst ic ovaries Active 2017 Amelie Mayfield null, [place] - [facility] 2 13:09:23 Oligomen orrhea 52670020 Completed 201708/16/2021 Zainab Ch MD [address], [place], [address] , [place] [facility] 19:31:58 Abnormal uterine bleeding 24158004160 100 Completed 201708/16/2021 Zainab Ch MD [address], [place], [address] , [place] [facility] 19:31:46 Hidraden itis 46769409 Active 2017 Amelie [place] [facility] 13:09:13 Pelvic floor dysfunct ion 679262952 Active 2018 Amelie [place] [facility] 13:09:18 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 a 869385337 Active 2019 Amelie [place] [facility] 13:08:57 History of SARS-CoV -2 43999341401 5737709 Completed 202010/01/2020 Bibi [place] null, [place] [facility] 1 11:37:52 [facility] hyperten morelia 89463873 Active 2020 Amelie [place] [facility] 13:09:07 Migraine 10433679 Active 2020 Amelie [place] [facility] 13:09:17 Gastroes ophageal reflux disease 079604874 Active 2020 Amelie [place] [facility] 13:09:11 Chronic constipa tion 484754022 Active 2020 Amelie [place] [facility] 13:09:01 Dysuria 66356649 Active 2021 Amelie [place] [facility] 13:09:03 Body mass index 40+ - severely obese 630913095 Active 2021 Amelie [place] [facility] 13:08:55 Morbid obesity 741401894 Active 2022 Ag Crouch RN [address], [place], [address] , [place] [facility] 14:17:15 Problem Notes None recorded. Procedures Surgical History Date Name Laterality Status Provider Name and Address Organization Details Recorded Time 03/08/20 Colposcopy cancelled Amelie Mayfield [place] - [facility] 01/27/20 09:08:30 01/06/20 Date of Last Pap Smear completed Zainab Ch MD [address], [place], [address], [place] [facility] 10/30/2023 19:57:44 01/27/20 Colposcopy completed Zainab Ch MD [address], [place], [address], [place] [facility] 2021 20:07:34 01/27/20 21 Colposcopy completed Araseli Mills APRN [address], [place], [address], [place] [facility] 09/24/2021 09:21:24 01/27/20 21 Colposcopy completed Fatuma Tsai [place] [facility] 01/11/2022 10:21:09 07/18/19 21 Date of Last Colonoscopy completed Monica Vásquez [place] - [facility] 08/12/2021 14:09:13 09/11/19 20 LEEP Procedure completed Zainab Ch MD [address], [place], [address], [place] [facility] 09/11/2019 16:00:11 09/11/19 20 [...] Name and Address Organization Details Recorded Time 894230 Reglan medicatio n other moderate Not available [...] Updated DateTime 07/20/2022 167.64 cm 40.8 kg/m2 241178.87 g 116/72 mm[Hg] Monica Vásquez [place] [facility] 07/20/2022 16:34:38 Date Recorded Body height Body mass index (BMI) Body weight Pain severity - 0-10 verbal numeric rating [Score] - Reported Systolic And Diastolic Provider Name and Address Organization Details Last Updated DateTime 09/24/2021 167.64 cm 40.2 kg/m2 179195.5 g 0 116/78 mm[Hg] Erinjackeline Gibbons [facility] 2 09:12:59 Date Recorded Body height Body mass index (BMI) Body weight Systolic And Diastolic Provider Name and Address Organization Details Last Updated DateTime 01/05/2023 167.64 cm 40 kg/m2 468081.91 g 118/82 mm[Hg] Amelie Mayfield [facility] 01/05/2023 14:16:13 Date Recorded Body height Body mass index (BMI) Body weight Pain severity - 0-10 verbal numeric rating [Score] - Reported Systolic And Diastolic Provider Name and Address Organization Details Last Updated DateTime 01/12/2022 167.64 cm 40.2 kg/m2 734979.5 g 0 104/62 mm[Hg] Erincody Gibbons [facility] 2 14:34:42 Date Recorded Body height Body mass index (BMI) Body weight Systolic And Diastolic Provider Name and Address Organization Details Last Updated DateTime 02/09/2022 167.64 cm 39.1 kg/m2 465862.35 g 126/78 mm[Hg] Amelie Mayfield [facility] 02/09/2022 13:07:43 Social History Question Answer Notes LastModified by Organizat ion Details LastModified Time Tobacco Smoking Status Former Smoker Monica wilkinson, [place] - [facility] 07/20/2022 16:27:52 Able To Swim? [...] COVID-19 While That Case Was Ill? No [email or web address] Information not available 02/09/2022 In The 14 Days Before Symptom Onset, Have You Had Close Contact With A Person Who Is Under Investigation For COVID-19 While That Person Was Ill? No [email or web address] Information not available 02/09/2022 Have You Been [...] Or The Highest Degree You Have Received? [id number] Information not available 01/30/2018 How Many Days [...] Much Tobacco Do You Smoke? 0.5 PPD [email or web address] Information not available 02/09/2022 General Stress Level [...] ? No, I Don't Want To Become [email or web address] Information not available 02/09/2022 What Is Your Reason For Having No Contraceptive Method At Start Of This Visit? Other Information not available 08/12/2021 Sex: Female Functional Status Question Answer Note LastModified by Organizat ion Details LastModified Time Do you or have you ever used smokeless tobacco? Never used smokeless tobacco [email or web address] Information not available 12/05/2020 Are you currently [...] not available 01/30/2018 What is your occupation? [employer] Information not available 07/20/2022 Mental Status Question Answer Note LastModified by Organizat ion Details LastModified Time Do you feel stressed (tense, restless, nervous, or anxious, or unable to sleep at night)? [id number] Information not available 08/12/2021 Do you have [...] Not available 2018 15:18:11 Mother Uterine leiomyoma [email or web address] Not available 2021 09:10:51 Medical History Condition Response Pancreatitis N Coronary Artery Disease N Other N Gout N Atrial Fibrillation N congenital heart disease N Kidney Stones N Blood Diseases N Hyperthyroidism N Blood Transfusion N Rheumatoid [...] colitis N Cerebrovascular Disease N Depression N Guillain-Voca N Sleep Apnea N Aneurysm N Bronchitis [...] ICD10 Code Diagnosis IMO Codes Diagnosis Note [id number] HA[place] [address] [place] [address] 09/22/2017 12:33:02 09/22/2017 12:51:30 Eustachian tube disorder 67328918 H69.90 [id number] Naheed Hidalgo APRN [address] [place] [address] 01/03/2018 08:05:15 01/03/2018 08:45:21 Hypothyroidism 69133092 E03.9 Anemia 671940852 D64.9 Vitamin D deficiency 347 14118 E55.9 [id number] MD John Blount [facility] [address] [place] [address] [place] [id number] 01/30/2018 15:07:25 01/30/2018 15:58:53 Pain in pelvis 27472159 R10.2 Venereal d isease screening 417626833 Z11.3 Oligomenorrhea 29967516 N91.5 Polycystic ovaries 58354 008 E28.2 Hidradenit is suppurativa 47669563 L73.2 [id number] MD John Blount [facility] [address] [place] [address] [place] [address] 02/20/2018 13:18:56 02/20/2018 14:22:33 Oligomenorrhea 73587606 N91.5 Polycystic ovaries 53852 008 E28.2 Pain in pelvis 94089606 R10.2 [id number] MD John Blount [facility] [address] [place] [address] [place] [address] 05/02/2018 09:02:13 05/02/2018 09:25:51 Abnormal uterine bleeding 2779674715 9100 N93.9 Oligomenorrhea 33853179 N91.5 Polycystic ovaries 51109 008 E28.2 Hidradenit is suppurativa 35031036 L73.2 [id number] Naheed Hidalgo APRN [address] [place] [address] 06/06/2018 09:51:55 06/06/2018 11:19:11 Acute bronchitis 66652268 J20.9 Cough 59426161 R05 Fatigue 09484654 R53.83 [id number] Sue Anglin APRN [address] [place] [address] 06/28/2018 12:48:18 06/28/2018 17:16:50 Acne 99705431 L70.9 We discussed support measures.P atient provided with printed informatio n on preventati ve and support measures for acne.We discussed starting Spironolac tone and will re-evaluat e in the future. Hidradenit is suppurativa 27658838 L73.2 Patient pleased with the current control with her H.S. She believes that the surgical wash is helping a great deal and will continue use. [id number] MD John Blount [facility] [address] [place] [address] [place] [address] 09/11/2018 13:52:08 09/11/2018 14:32:49 Abnormal uterine bleeding 2110924749 9100 N93.9 Hidradenitis 56488947 L7 3.2 Polycystic ovaries 98528 008 E28.2 Venereal d isease screening 614397104 Z11.3 [id number] MD John Blount [facility] [employer] [address] [place] [address] [place] [address] 11/02/2018 13:12:35 11/02/2018 13:46:27 Vaginal discharge 378142845 N89.8 Candidiasis of vagina 72 272963 B37.3 [id number] Naheed Hidalgo APRN [address] [place] [address] 11/08/2018 14:48:45 11/08/2018 15:34:32 Fatigue 31541928 R53.83 Memory impairment 346544 006 R41.3 Dizziness and giddiness 180916473 R42 [id number] Naheed Hidalgo APRN [address] [place] [address] 11/21/2018 09:59:56 11/21/2018 15:29:14 Vitamin B12 deficiency (non anemic) 26252531 E53.8 Vitamin D deficiency 347 05465 E55.9 [id number] Naheed Hidalgo APRN [address] [place] [address] 01/10/2019 16:00:28 01/10/2019 16:27:14 Acne 52168138 L70.9 Memory impairment 305722 006 R41.3 Chronic constipation 236 641278 K59.09 Food intolerance 0457733 0 K90.49 Impairment of balance 38 6129842 R26.89 Paresthesi a of lower extremity 017665758 R20.2 [id number] MD John Blount [facility] [address] [place] [address] [place] [address] 03/14/2019 14:57:40 03/14/2019 15:48:16 Routine gynecologic examination done 2499635623 9101 Z01.419 Depression screening 171 447897 Z13.89 PHQ 9 negative Diet education 81776221 Z71.3 Counseling 569174078 Z71 .82 Exercise counsellin g. Patient encouraged to exercise 30 minutes 5 days a week. Examinatio n of blood pressure 114740423 Z01.30 Normotensi ve Screening for malignant neoplasm of cervix 819013123 Z12.4 Pap collected Vaginal discharge 871764 006 N89.8 Pelvic ward or dysfunction 418654746 M62.9 Polycystic ovaries 00865 008 E28.2 Family his tory of breast cancer 744135409 Z80.3 [id number] MD John Blount [facility] [address] [place] [address] [place] [address] 08/21/2019 10:53:04 08/21/2019 11:54:03 Cervical intraepithelial neoplasia grade III with severe dysplasia 218582493 D06.9 [id number] MD John Blount [facility] [address] [place] [address] [place] [address] 09/11/2019 14:52:56 09/11/2019 15:49:37 Cervical intraepithelial neoplasia grade III with severe dysplasia 472559527 D06.9 [id number] MD John Blount [facility] [address] [place] [address] [place] [address] 09/25/2019 13:05:49 09/25/2019 13:21:20 History of loop electrosurgical excision procedure 3971080102 9102 Z98.890 Cervical intraepithelial neoplasia grade III with severe dysplasia 154393891 D06.9 [id number] MD John Blount [employer] [employer] [address] [place] [address] [place] [address] 11/08/2019 15:58:57 11/08/2019 16:26:39 Mass of left breast 2106607656 8771222 N63.20 [id number] MD John Blount [facility] [employer] [address] [place] [address] [place] [address] 02/20/2020 15:34:15 02/20/2020 16:34:29 Cervical intraepithelial neoplasia grade III with severe dysplasia 403177506 D06.9 [facility] 36428999 L70.9 [id number] MD John Blount [employer] [employer] [address] [place] [address] [place] [address] 06/18/2020 10:30:20 06/18/2020 11:34:32 Polycystic ovary syndrome 300527367 E28.2 Trying to conceive 81867 9001 Z31.9 History of loop electrosurgical excision procedure 0857699491 9102 Z98.683 [id number] MD John Blount [facility] [address] [place] [address] [place] [address] 09/29/2020 15:14:02 09/29/2020 16:25:12 Screening for malignant neoplasm of cervix 299757343 Z12.4 Pap collected Cervical intraepithelial neoplasia grade III with severe dysplasia 594066212 D06.9 Dyspareunia 81513695 N94 .10 Mass of left breast 1224 760890 2259821 N63.20 Family his tory of breast cancer 505300362 Z80.3 [id number] Miranda Pa APRN [address] [place] [address] 10/01/2020 11:19:30 10/01/2020 12:03:02 Essential hypertension 25576460 I10 Advised to check BP daily at home. Follow-up in 1 month. Fatigue 96875955 R53.83 Migraine 89510936 G43.90 9 [id number] Miranda Pa APRN [address] [place] [address] 10/17/2020 08:06:55 10/17/2020 08:38:56 Essential hypertension 30125728 I10 Advised to check BP daily at home. Follow-up in 1 month. Migraine 98364321 G43.90 9 She has not used the sumatripta n yet, only Tylenol PRN. Body mass index 30+ - obesity 494919926 Z68.38 Hidradenit is suppurativa 50338706 L73.2 [id number] Miranda Pa APRN [address] [place] [address] 11/04/2020 08:18:10 11/04/2020 09:01:54 Migraine 81190493 G43.909 Dizziness 948524257 R42 Labs previously done at last visit were normal. Blurring o f visual image 117537398 H53.8 Neck pain 96703948 M54.2 [id number] Miranda Pa APRN [address] [place] [address] 12/05/2020 08:15:03 12/05/2020 09:06:31 Edema of lower extremity 540067758 R60.0 Resolved - advised on elevation of legs, adequate hydration, reduced sodium intakes, compressio n stockings PRN. F/U if worsens. Low back pain 980032454 M54.5 Thoracic back pain 49832 8004 M54.6 Migraine 00720668 G43.90 9 Advised to F/U with Neuro as scheduled. F/U in office needed before then. [id number] Miranda Pa APRN [address] [place] [address] 12/09/2020 13:55:58 12/09/2020 14:38:24 Body mass index 30+ - obesity 129507351 Z68.39 Chest pain 15985336 R07. 9 Labs performed previously . Will refer to Cardiology today. F/U in office if symptoms worsen, or go to ER for any chest pain lasting longer than 5 minutes or increased shortness of breath. Already had recent labs October 2020 - no need for additional labs today. Palpitations 14645960 R0 0.2 [id number] MD Mere [place] [facility] [address] [place] [address] [place] [address] 01/26/2021 13:12:53 01/26/2021 14:39:11 Abnormal cervical Papanicolaou smear 914887963 R87.619 Screening for malignant neoplasm of cervix 495424186 Z12.4 [id number] MD Mere [place] [facility] [address] [place] [address] [place] [address] 04/15/2021 08:58:03 04/15/2021 09:18:57 Abnormal cervical Papanicolaou smear 647195185 R87.619 Vaginal discharge 803309 006 N89.8 Dyspareunia 93005373 N94 .10 [id number] Corry Sears APRN [address] [place] [address] 06/18/2021 09:38:21 06/18/2021 10:27:06 Abdominal pain 96179350 R10.9 Depression screening 171 939696 Z13.31 Gastroesop hageal reflux disease 325696184 K21.9 Chronic constipation 236 752886 K59.09 Abdominal bloating 93510 9008 R14.0 Nausea 221094872 R11.0 Body mass index 40+ - severely obese 012467280 Z68.41 [id number] MD John Blount [facility] [address] [place] [address] [place] [address] 08/12/2021 13:57:13 08/12/2021 14:45:12 Routine gynecologic examination done 4886903977 9101 Z01.419 Depression screening 171 094196 Z13.89 PHQ 9 negative Diet education 16275284 Z71.3 Counseling 988999144 Z71 .82 Exercise counsellin g. Patient encouraged to exercise 30 minutes 5 days a week. Examinatio n of blood pressure 919397114 Z01.30 Normotensi ve Vaccine de clined by patient 5965553787 02 Z28.21 Obesity 019879891 E66.9 Screening for malignant neoplasm of cervix 936027590 Z12.4 Hidradenit is suppurativa 53384013 L73.2 [id number] Luis Mitchell MD [address] [place] [address] 09/10/2021 14:58:29 09/10/2021 15:35:57 Pharyngitis 709323812 J02.9 [id number] Araseli Mills APRN [place] [facility] [address] [place] [address] [place] [address] 09/24/2021 08:40:43 09/24/2021 09:34:52 Dysuria [id number] R30.9 Chronic constipation 236 385571 K59.09 Body mass index 40+ - severely obese [id number] Z68.41 [id number] Alis Mays DO Davidson [employer] [address] [place] [address] SARAN Sanchez [id number] 7 01/12/2022 14:23:40 01/12/2022 15:14:15 Irregular periods 93721162 N92.6 Sterilizat ion requested [id number] Z30.2 Abnormal c ervical Papanicolaou smear 210058182 R87.619 Chronic in terstitial cystitis 931821051 N30.10 [id number] Zainab Ch MD [facility] [employer] [address] [place] [address] SARAN Sanchez [id number] 02/09/2022 13:00:30 02/09/2022 13:30:25 Pre-surgery evaluation 461520456 Z01.818 Sterilizat ion requested 702173158 Z30.2 Contracept ion care management 232958956 Z30.9 Condyloma acuminata of vulva 405032737 A63.0 [id number] MD John Blount PAINTER R[facility] [address] [place] [address] SARAN Sanchez [id number] 7 07/20/2022 16:00:19 07/20/2022 17:05:27 Routine gynecologic examination done [id number] 9101 Z01.419 Depression screening 171 303303 Z13.89 PHQ 9 negative Examinatio n of blood pressure 386184441 Z01.30 Normotensi ve Body mass index 40+ - severely obese 850515788 Z68.41 Screening for malignant neoplasm of cervix 075221833 Z12.4 Vaginal pain 40923124 R1 0.2 Dyspareunia 32096741 N94 .10 Sebaceous cyst of skin 640313720 L72.3 [id number] MD John Blount PAINTER R[facility] [address] [facility] SARAN Sanchez [id number] 01/05/2023 13:55:12 01/05/2023 14:44:41 Venereal disease screening 946520721 Z11.3 Postcoital bleeding 4888 0000 N93.0 Abnormal u terine bleeding 0130953829 9100 N93.9 Health Concerns Section Related Observation LastModified by Organization Detai ls LastModified Time None Recorded Concern Status LastModified by Organization Details LastModified Time None Recorded Advance Directives Directive N: Payers Insurance Date Sequence Insurance Name Policy Number Policy Mai Covered Member ID Mai Member ID Guarantor Name 04/23/2023 [id number] Araceli Gill [place] [id number] Katy Gill [place] 01/12/2022 1 [employer] [facility] (MEDICAID HMO) Araceli [place] [id number] Katy Homero [place] 04/23/2023 1 [employer] [facility] (MEDICAID HMO) Araceli Gill [place] [id number] Katy Gill [place] 08/21/2019 1 *SELF PAY* Faby levin Homero [place] 02/10/2022 1 [id number] Katy Gill [place] [id number] Katy Gill [place] Notes Date Note Type [...] frequency, lots of pressure, cramping. Araseli Mills, MANAGER ONCOLOGY [address], [place], [address], [place] - [facility] 09/24/2021 10:25:12 2 text/html [...] dietary changes and OTC prelief. Alis wilkinson, [place] - [facility] 01/12/2022 15:06:27 2 text/html ROS [...] surgery. 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 She reports that she is in [...] depression/anxiety. Zainab Ch MD [address], [place], [address], [place] - [facility] 07/29/2022 13:27:41 3 text/html [...] Zainab Ch MD [address], [place], [address], [place] - [facility] 01/09/2023 16:33:00 OBGyn Episode Ob Episode Information Episode Created Date Number of Fetuses Patient Bloodtype Patient rh Status Prepregnancy Weight lbs Domestic Partner Domestic Partner Phone Father Name [employer] Technician Status 01/31/20 18 1 CLOSED Fetus Data [...] Comments 5 Regional-Ep idural 40 false 17 [facility] Discharge Information Feeding Method Contraceptive Method Maternal HG B and HCT Levels
--- OUTSIDE RECORDS SUMMARY | 2025-05-29 16:38 | XMS_ITS | Encounter Summary ---
Author Organization [facility] Address [address] [place] [address] Care Team Providers Care Fine Grader Name Role Phone Provider, No Known Primary [...] on filedocumented in this encounter Care Teams Fine Grader Relationship Specialty Start Date End Date Provider, No Known [facility] [place] [address] PCP - General 04/10/25 documented as of this encounter
--- OUTSIDE RECORDS SUMMARY | 2025-05-29 16:38 | XMS_ITS | Clinical Summary ---
Author Organization Healthcare Address [address] [place] [address] Care Team Providers Care Rn Observation Name Role Phone Miranda Pa HAILEY Primary [...] 2022 [facility]-Cervical Cancer Screening 2025 [facility]-HPV/Cotest 2025 ECE-UYIFX-28 Vaccine ( - season) 2025 [facility]-Influenza Vaccine [...] age to complete this topic Insurance [facility] MED[facility] Care Teams Rn Observation Relationship Specialty Start Date End Date Miranda Pa APRN [address] [place] [address] PCP - General 11/28/20
--- OUTSIDE RECORDS SUMMARY | 2025-05-29 16:38 | XMS_ITS | Clinical Summary ---
Author Organization [facility] Address [address] [place] [address] Care Team Providers Care Instrument Repair Supervisor Name Role Phone Provider, No Known Primary [...] Description 04/18/2025 9:00 AM EDT Office Visit [facility] [address] [place] [address] Dominguez Deleon MD hydronephrosis during , antepartum, single or unspecified fetus (Primary Dx); Suspected problem with placenta not found; Vapes nicotine containing substance 04/18/2025 8:46 AM EDT - 04/18/2025 11:59 PM EDT Hospital Encounter [facility] [address] [place] [address] Marina Barrera DO Placenta, abnormal, [...] Procedure Name Priority Date/Time Associated Diagnosis Comments [facility] Routine 04/18/2025 9:59 AM EDT Placenta, abnormal, third trimester Large head , unspecified gestational age from Last 3 Months Results * [facility] (04/18/2025 9:59 AM EDT) Anatomical Region Laterality Modality Ultrasound 04/18/2025 9:16 AM EDT Narrative 04/18/2025 10:05 AM EDT PAT NAME: ARACELI RIOS MED REC#: [id number] DA: [id number] PAT GEND: F PAT TYPE: O EXAM JONATHAN: [id number] REF PHYS MARINA [place] Comparison Studies There [...] EFW (oz) 3 oz EFW by: Hadlock (CHS-CW-DT-FL) Extended Tibia 54.2 mm 32w 0d 51% Martine Fibula 52.3 mm 32w 1d 50% Martine Foot 63.3 mm 29% Chitty Radius 46.3 mm 33w 2d 58% Martine Ulna 51.8 mm 32w 5d 45% Martine Cav. septi pel. tr 7.8 mm Plaster Maker 6.8 mm CM 5.6 mm 10% [...] normal IVC: normal 3-vessel view: Appears normal 0-oagduv-omovqwr view: Appears normal Rt lung: Appears normal [...] Consultation / Office Visit Type: Consultation See [facility] for full consult note. Impression [...] (your office) Further ultrasounds/consultation at 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 View: Adequate view ========= Dorman . Number of fetuses: 1 Dating ====== Method of dating:based on stated ANICETO GA by prior arfnrmoqut95 w + 1 d ANICETO by prior assessment:06/12/2025 Ultrasound examination on:04/18/2025 GA by U/S based upon:AC, BPD, Femur, HC GA by U/S34 w + 5 d ANICETO by U/S:05/25/2025 Assigned:based on stated ANICETO, selected on 04/18/2025 Assigned GA32 w + 1 d Assigned ANICETO:06/12/2025 [id number] d Biometry Standard BPD90.0 mm 36w 3d >99% Hadlock JJN198.5 mm 36w 2d >99% Martine HC315.9 mm 35w 3d 92% Hadlock Cerebellum tr42.6 mm 33w 3d 70% Hill AC299.0 mm 33w 6d 91% Hadlock Femur64.5 mm 33w 2d 69% Hadlock Ttshpnq85.8 mm 31w 2d 29% Martine HC / AC1.06 EFW2,353 g 33w 6d 92% Hadlock EFW (lb)5 lb EFW (oz)3 oz EFW by:Hadlock (XUU-OE-OD-FL) Extended Tibia54.2 mm 32w 0d 51% Martine Vvdvoe48.3 mm 32w 1d 50% Martine Foot63.3 mm 29% Chitty Uczhcn46.3 mm 33w 2d 58% Martine Ulna51.8 mm 32w 5d 45% Martine Cav. septi pel. tr7.8 mm Vp6.8 mm CM5.6 mm 10% Nicolaides Nasal bone11.6 mm Rt Renal pelvis ap6.9 mm Lt Renal pelvis ap7.7 mm Head / Face / Neck Cephalic index0.82 75% Nicolaides Extremities / Bony Struc FL / BPD0.72 FL / HC0.20 FL / AC0.22 Other Structures FXE512 bpm General Evaluation Cardiac activity present. FHR [...] view:Appears normal SVC:normal IVC:normal 3-vessel view:Appears normal 6-gjvwle-mcqwkaz view:Appears normal Rt lung:Appears normal Lt lung:normal [...] Structures Uterus / Cervix Cervix:Visualized Approach:Transabdominal Cervical rdurmh57.5 mm Ovaries / Tubes / Adnexa Rt ovary:Visualized Lt ovary:Visualized Consultation / Office Visit Type: Consultation See [facility] for full consult note. Impression [...] (your office) Further ultrasounds/consultation at [facility] at your discretion Coding ======= Description:70915-94 Detailed Ultrasound Description:92567-[address] Design Engineer: Eneida Akers RDMS Physician: Dominguez Deleon MD Electronically signed by: Dominguez Deleon MD at: 10:05 us Marinabrandie Laurenradha DO IMG US ORDERABLES Final Result from Last [address] [place] [address] [employer] [facility] Care Teams Instrument Repair Supervisor Relationship Specialty Start Date End Date Provider, [place] [address] PCP - General 04/10/25
--- OUTSIDE RECORDS SUMMARY | 2025-05-29 16:38 | XMS_ITS | Encounter Summary ---
Author Organization Healthcare Address [address] [place] [address] Care Team Providers Care Pool Table Operator Name Role Phone Miranda Pa APRN Primary Care Provider + Encounter Details Date Type Department Care Team (Late st Contact Info) Description 01/22/2021 Community [facility] [address] [place] [address] Miranda Pa APRN [address] [facility] [place] [address] Migraine without status migrainosus, not intractable, unspecified [...] Primary documented in this encounter Care Teams Pool Table Operator Relationship Specialty Start Date End Date Miranda Pa APRN [address] [facility] [place] [address] PCP - General 11/28/20 documented as of this encounter
[2025-05-29 17:16] VITALS: BMI 48.1
[2025-05-29 17:17] VITALS: BP 109/79; PULSE 106; RESP 18; TEMP 36.7; O2SAT 95; BMI 47.9
== END 2025-05-29 19:03 | disposition home or self-care (01) ==
LOC: OBOUT 16:35 → OB 16:36
PROVIDERS: Visit Provider Nurse Practitioner Obstetrics & Gynecology
DX: O28.8 Other abnormal findings on antenatal screening of mother (principal); O47.1 False labor at or after 37 completed weeks of gestation; Z3A.38 38 weeks gestation of pregnancy
CPT/HCPCS: 99212

== ENCOUNTER 2025-06-03 11:47 | Outpatient (CLI) | payer OTHER, SELFPAY ==
--- NOTE | 2025-06-03 11:30 | US_ITS ---
PROCEDURE: US OB BIOPHYSICAL PROFILE CLINICAL INDICATION: BPP w/CAROL COMPARISON: US US OB /MATERNAL DETAIL from 01/23/2025 US OB FOLLOW UP from 02/06/2025 US OB FOLLOW UP from 03/19/2025 US OB BIOPHYSICAL PROFILE from 04/09/2025 US OB FOLLOW UP from 04/16/2025 US OB FOLLOW UP from 05/13/2025 US OB FOLLOW UP from 05/20/2025 US OB BIOPHYSICAL PROFILE from 05/27/2025 FINDINGS: Transabdominal sonographic images of the uterus were obtained. From her established due date she is 38weeks 5days. The following parameters are obtained: Viable Fetus in the cephalic presentation with an anterior with a posterior wrapped placenta grade 2. Measurements: heart Rate = 127bpm Amniotic fluid index: 14.24cm, MVP 6.11 cm. There is particulate matter within the amniotic fluid. Qualitative AFV:2 Breathing movements: 2 Gross Body Movements: 2 Tone: 2 Biophysical profile score: 8 No obvious anomalies evident.Kidneys, four-chamber heart, three-vessel cord appear normal. IMPRESSION: 1. Viable fetus in the cephalic presentation with an anterior placenta with a posterior wrap grade 2. 2. Fluid is within normal limits with an amniotic fluid index is 14.24 cm, MVP 6.11 cm. 3. Biophysical profile is 8/8 with good breathing movement and movement seen. 4. Limited anatomical scan appears normal. Dictated by: Giacomo Webster MD 06/03/2025 14:31 Giacomo Webster MD in OV 06/03/2025 14:31
== END 2025-06-03 23:59 | disposition home or self-care (01) ==
LOC: RAD 11:48
PROVIDERS: PCP Obstetrics & Gynecology; Visit Provider Obstetrics & Gynecology
DX: O98.813 Other maternal infectious and parasitic diseases complicating pregnancy, third trimester; O99.891 Other specified diseases and conditions complicating pregnancy; B95.1 Streptococcus, group B, as the cause of diseases classified elsewhere; R31.9 Hematuria, unspecified; Z3A.38 38 weeks gestation of pregnancy; O36.63X0 Maternal care for excessive fetal growth, third trimester, not applicable or unspecified
CPT/HCPCS: 76819

== ENCOUNTER 2025-06-05 05:29 | Inpatient (IN) | payer OTHER, SELFPAY ==
--- OUTSIDE RECORDS SUMMARY | 2025-04-18 07:46 | XMS_ITS | Encounter Summary ---
[facility] Address [address] [place] [address] Care Team Providers Care Marquetry Worker Name Role Phone Provider, No Known Primary Care Provider Unavail able Reason for Referral * Diagnostic Imaging (Routine) - Closed Specialty Diagnoses / Procedures Referred By Contac t Referred To Contact Radiology Diagnoses Placenta, abnormal, third trimester Large head , unspecified gestational age Procedures [facility] Diagnostic [place] Marina Barrera DO [address] [place] [address] Phone: tel: fax: [facility] US PER DIAG CTR [address] [place] [address] Phone: tel: Referral ID Status Reason Start Date Expiration Date Visits Re quested Visits Authorized [id number] Closed 04/10/2025 07/10/2026 1 1 Reason for Visit * Diagnostic Imaging (Routine) - Closed Specialty Diagnoses / Procedures Referred By Contac t Referred To Contact Radiology Diagnoses Placenta, abnormal, third trimester Large head , unspecified gestational age Procedures [facility] Diagnostic [place] Marina Barrera DO [address] [place] [address] Phone: tel: fax: [facility] US PER DIAG CTR [address] [place] [address] Phone: tel: Referral ID Status Reason Start Date Expiration Date Visits Re quested Visits Authorized [id number] Closed 04/10/2025 07/10/2026 1 1 Encounter Details Date Type Department Care Team (Latest Contact Info) Description 04/18/2025 8:46 AM EDT - 04/18/2025 11:59 PM EDT Hospital Encounter [facility] PER DIAG CTR [address] [place] [address] Marina Barrera, [address] [facility] [address] [place] [address] Placenta, abnormal, third trimester; Large [...] Priority Date/Time Associated Diagnosis Comments [facility] Routine 04/18/2025 9:59 AM EDT Placenta, abnormal, third trimester Large head , unspecified gestational age documented in this encounter Results * [facility] (04/18/2025 9:59 AM EDT) Anatomical Region Laterality Modality Ultrasound 04/18/2025 9:16 AM EDT Narrative 04/18/2025 10:05 AM EDT PAT NAME: ARACELI RIOS MED REC#: [id number] DA: [id number] PAT GEND: F PAT TYPE: O EXAM JONATHAN: [id number] REF PHYS MARINA BARRERA Comparison Studies There [...] EFW (oz) 3 oz EFW by: Hadlock (SWE-VD-QW-FL) Extended Tibia 54.2 mm 32w 0d 51% Martine Fibula 52.3 mm 32w 1d 50% Martine Foot 63.3 mm 29% Chitty Radius 46.3 mm 33w 2d 58% Martine Ulna 51.8 mm 32w 5d 45% Martine Cav. septi pel. tr 7.8 mm Sr Vice President 6.8 mm CM 5.6 mm 10% Nicolaides [...] normal IVC: normal 3-vessel view: Appears normal 9-aejchp-ycaeors view: Appears normal Rt lung: Appears normal [...] growth assessment (your office) Further ultrasounds/consultation at [facility] at your discretion Coding ======= Description: 67429-34 Detailed Ultrasound Description: 84637-53 BPP without NST Development Technical Lead: Eneida Akers RDMS Physician: Dominguez Deleon MD Electronically signed by: Dominguez Deleon MD at: 10:05 Procedure Note Dominguez Deleon MD - 04/18/2025 PAT NAME: ARACELI RIOS MED REC#: [id number] DA: [id number] PAT GEND: F PAT TYPE: O EXAM JONATHAN: [id number] REF PHYS MARINA BARRERA Comparison Studies There are no relevant prior studies to which this study is beingcompared Patient Status Outpatient Indication ======== 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 View: Adequate view ========= [place] . Number of fetuses: 1 Dating ====== Method of dating:based on stated ANICETO GA by prior gntegaziru98 w + 1 d ANICETO by prior assessment:06/12/2025 Ultrasound examination on:04/18/2025 GA by U/S based upon:AC, BPD, Femur, HC GA by U/S34 w + 5 d ANICETO by U/S:05/25/2025 Assigned:based on stated ANICETO, selected on 04/18/2025 Assigned GA32 w + 1 d Assigned ANICETO:06/12/2025 hgoomj277 d Biometry Standard BPD90.0 mm 36w 3d >99% Hadlock SKM799.5 mm 36w 2d >99% Martine HC315.9 mm 35w 3d 92% Hadlock Cerebellum tr42.6 mm 33w 3d 70% Hill AC299.0 mm 33w 6d 91% Hadlock Femur64.5 mm 33w 2d 69% Hadlock Eanlzoq74.8 mm 31w 2d 29% Martine HC / AC1.06 EFW2,353 g 33w 6d 92% Hadlock EFW (lb)5 lb EFW (oz)3 oz EFW by:Hadlock (ERF-HE-SH-FL) Extended Tibia54.2 mm 32w 0d 51% Martine Aiwvdm26.3 mm 32w 1d 50% Martine Foot63.3 mm 29% Chitty Kcxlxo45.3 mm 33w 2d 58% Martine Ulna51.8 mm 32w 5d 45% Martine Cav. septi pel. tr7.8 mm Vp6.8 mm CM5.6 mm 10% Nicolaides Nasal bone11.6 mm Rt Renal pelvis ap6.9 mm Lt Renal pelvis ap7.7 mm Head / Face / Neck Cephalic index0.82 75% Nicolaides Extremities / Bony Struc FL / BPD0.72 FL / HC0.20 FL / AC0.22 Other Structures HXR515 bpm General Evaluation Cardiac activity present. FHR [...] view:Appears normal SVC:normal IVC:normal 3-vessel view:Appears normal 6-cnnibu-phqokbu view:Appears normal Rt lung:Appears normal Lt lung:normal [...] Structures Uterus / Cervix Cervix:Visualized Approach:Transabdominal Cervical xhayrt29.5 mm Ovaries / Tubes / Adnexa Rt ovary:Visualized Lt ovary:Visualized Consultation / Office Visit Type: Consultation See [facility] for full consult note. 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
--- OUTSIDE RECORDS SUMMARY | 2025-04-18 08:00 | XMS_ITS | Encounter Summary ---
[facility] Address [address] [place] [address] Care Team Providers Care Mold Maintenance Technician Name Role Phone Provider, No Known Primary Care Provider Unavail able Reason for Visit * Reason Comments Anterior accessory lobe of placenta, lar ge head Encounter Details Date Type Department Care Team (Late st Contact Info) Description 04/18/2025 9:00 AM EDT Office Visit [facility] MATERNAL MEDICINE [address] [place], [place] [phone] Dominguez Deleon MD [address] [facility] [address] [place] [phone] hydronephrosis during , antepartum, single or unspecified [...] CVS. Dominguez Deleon MD, FACOG Maternal Medicine, [facility] documented in this encounter Plan of Treatment Not on file documented as of this encounter Visit Diagnoses Diagnosis hydronephrosis during , antepartum, single or unspecified fetus- Primary Suspected problem with placenta not found Suspected placental problem not found Vapes nicotine containing substance documented in this encounter Care Teams Mold Maintenance Technician Relationship Specialty Start Date End Date Provider, [place] [address] PCP - General 04/10/25 documented as of this encounter
[2025-05-29 14:13] VITALS: BMI 47.9
[2025-06-05] VITALS (8 sets, daily range): BP systolic 110–133; BP diastolic 63–84; PULSE 65–86; RESP 16–18; TEMP 36.1–36.9; O2SAT 98–100; BMI 48.1
--- OUTSIDE RECORDS SUMMARY | 2025-06-05 05:32 | XMS_ITS | Data Portability ---
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 Lab cytology report, thin prep, smear or scraping, cervical or vaginal 2022 023 LAUREL [facility], [address], [place], [address], 3 12:13:17 TSH + free T4, serum 2022 023 LAUREL [facility], [address], [place], [address], 3 10:36:51 testosteron e, free + total, serum 2022 023 PORTIS [facility], [address], [place], [address], 3 10:36:52 HbA1c (hemoglobin A1c), blood 2022 023 PORTIS [facility], [address], [place], [address], 3 10:36:55 test, urine 2022 023 [facility] 2 [place] [employer], [address] [place] [address] , [place], [address], 3 16:31:01 vaginal pathogens panel, AVIVA+probe, vaginal fluid 2022 023 PORTIS [facility], [address], [place], [address], 3 10:36:50 HIV 1 + 2, meaningful use set 2022 023 PORTIS [facility], [address], [place], [address], 3 10:36:52 RPR (rapid plasma reagin), serum 2022 023 PORTIS [facility], [address], [place], [address], 3 10:36:53 HBsAg (hepatitis B surface Ag), EIA, serum 2022 023 PORTIS [facility], [address], [place], [address], 3 10:36:56 Hepatitis C IgG Ab, qual, serum 2022 023 PORTIS [facility], [address], [place], [address], 3 10:36:54 cytology report, thin prep, smear or scraping, cervical or vaginal 2022 023 PORTIS [facility], [address], [place], [address], 3 13:07:39 CBC w/ auto diff 2021 022 [facility]( Lab), [address] [place] [address] [place], [address], 2 12:15:31 CMP, serum or plasma 2021 022 [facility]( Lab), [address] [place] [address] [place], [address], 2 16:27:52 urinalysis, reflex culture 2021 [facility]( Lab), [address] [place] [address] [place], [address], 2 18:13:34 Pap smear tests - FPAR 2.0 set 2021 022 PORTIS [facility], [address], [place], [address], 2 13:09:33 test, urine 2021 022 [email or web address] [place] [employer], [address] [place] [address] , [place], [address], 2 14:59:48 culture, urine 2021 022 PORTIS [facility], [address], [place], [address], 2 22:07:17 urinalysis, dipstick 2021 022 [email or web address] [place] [employer], [address] [place] [address] , [place], [address], 09:23:09 Referral gynecologic surgery referral - lap b/l salpingecto my 2021 022 [email or web address] Not available 12:43:16 Procedures None recorded. Surgeries None recorded. Imaging None recorded. Medication Orders Prelief 65 mg tablet 2021 022 [email or web address] [facility] - [address], [place], [address], 13:08:44 Patient TargetsNo targets recorded. Patient Instructions Encounter Date Encounter Id Patient Instructions Last Modified By Organization Details Last Modified Time 09/24/2021 [id number] Increase fluids Avoid soda and tea Will send urine for culture and call with results. If urine culture is positive, will call in an antibiotic. Not available 09/24/2021 10:24:55 01/12/2022 [id number] Interstitial cystitis questionnaire given and score positive for IC. Discussed IC care guide as well as first line treatments including dietary changes and OTC prelief. Rx prelief given Pap obtained Will sign sterilization paperwork and RTO for preop for lap b/l salpingectomy. 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 Pt reports enlarged mesentry. Will get CT scan results. Return for pelvic US Brienbessy deisres excision of sebaceous cysts from her vulva. Will perform this as well upon return [email or web address] Not available 07/29/2022 13:27:23 01/05/2023 [id number] Given post-coita l bleeding and hx of cervical dysplasia, pap collected, but also recommended colpo and she agrees. Given AUB, check labs and return for US. Also performing for pelvic pain Full STI testing performed today nancy Not available 01/09/2023 16:32:35 Reason for Referral Gynecologic Surgery Referral for Sterilization requested lap b/l salpingectomy Referring Physician: Alis Mays, RN MIDWIFE, Encounter Date: 01/12/2022 Results Created Date Observation Date Name Description Value Unit Range Abnormal Flag Note LastModifiedBy Organization Detail LastModifiedTime 09/10/19 22 09/10/2021 rapid strep group A, throa t Strep negati ve Not Available [address] , [place], [address], 09/10/2021 15:09:41 09/25/19 22 09/25/2021 URINE CULTU REEVIN NE urine culture, routine Final report Not Available [facility] ([facility]) [address] [place], [address], 09/25/2021 22:07:17 09/25/19 22 09/25/2021 URINE CULTU REEVIN NE result 1 No growth Not Available [facility] ([facility]) [address] [place], [address], 09/25/2021 22:07:17 09/25/19 22 09/24/2021 urina lysis , dipst ick Leukocytes Modera te Not Available [place] [employer] [address] [place] [address] , [place], [address], 09/24/2021 09:11:16 09/25/19 22 09/24/2021 urina lysis , dipst ick Nitrite negati ve Not Available [place] [employer] [address] [place] [address] , [place], [address], 09/24/2021 09:11:16 09/25/19 22 09/24/2021 urina lysis , dipst ick Urobilinogen .2 Not Available [facility] ille [employer] [address] [place] [address] , [place], [address], 09/24/2021 09:11:16 09/25/19 22 09/24/2021 urina lysis , dipst ick Protein Negati ve Not Available [facility] [address] [place] [address] , [place], [address], 09/24/2021 09:11:16 09/25/19 22 09/24/2021 urina lysis , dipst ick pH 6.[address] [facility]/[address] , [place], [address], 09/24/2021 09:11:16 09/25/19 22 09/24/2021 urina lysis , dipst ick Blood Modera te Not Available [facility]/[address] , [place], [address], 09/24/2021 09:11:16 09/25/19 22 09/24/2021 urina lysis , dipst ick Specific Comstock 1.030 Not Available [facility] lle [employer] [address] [place] [address] , [place], [address], 09/24/2021 09:11:16 09/25/19 22 09/24/2021 urina lysis , dipst ick Ketone Negati ve Not Available [facility] [address] [place] [address] , [place], [address], 09/24/2021 09:11:16 09/25/19 22 09/24/2021 urina lysis , dipst ick Bilirubin Negati ve Not Available [facility] [address] [place] [address] , [place], [address], 09/24/2021 09:11:16 09/25/19 22 09/24/2021 urina lysis , dipst ick Glucose Negati ve Not Available [place] [employer] [address] [place] [address] , [place], [address], 09/24/2021 09:11:16 09/25/19 22 09/24/2021 urina lysis , dipst ick Appearance Slight ly Cloudy Not Available [place] [employer] [address] [place] [address] , [place], [address], 09/24/2021 09:11:16 09/25/19 22 09/24/2021 urina lysis , dipst ick Color Yellow Not Available [place] [employer] [address] [place] [address] , [place], [address], 09/24/2021 09:11:16 01/13/20 22 01/14/2022 IGP,R FX APTIM A HPV ALL PTH diagnosis: Commen t NEGAT BALBINA FOR INTRA EPITH ELIAL LESIO N OR MAGGIE SMITH . PREDO RANDA CE OF [place] BACIL LI CONSI STENT WITH SHIFT IN VAGIN AL ARSLAN IS PRESE NT. Not Available [facility] ([facility]) [address] [facility], [place], [address], 01/14/2022 13:09:33 01/13/20 22 01/14/2022 IGP,R FX APTIM A HPV ALL PTH specimen adequacy: Commen t Satis facto ry for evalu ation . Endoc ervic al and/o r squam ous metap lasti c cells (endo cervi kim compo nent) are prese nt. Not Available [facility] ([facility]) [address] [facility], [place], [address], 01/14/2022 13:09:33 01/13/20 22 01/14/2022 IGP,R FX APTIM A HPV ALL PTH clinician provided ICD10: Commen t R87.6 19 Not Available [facility] ([facility]) [address] [place], [address], 01/14/2022 13:09:33 01/13/20 22 01/14/2022 IGP,R FX APTIM A HPV ALL PTH performed by: Alejandro Huston Not Available [facility] ([facility]) [address] [place], [address], 01/14/2022 13:09:33 01/13/20 22 01/14/2022 IGP,R FX APTIM A HPV ALL PTH . . Not Available [facility] ([facility]) [address] [place], [address], 01/14/2022 13:09:33 01/13/20 22 01/14/2022 IGP,R FX [...] ts do occur . Not Available [facility] ([facility]) [address] [place], [address], 01/14/2022 13:09:33 01/13/20 22 01/14/2022 IGP,R FX APTIM A HPV ALL PTH test methodology: Monae aldana This liqui d based ThinP rep(R ) pap test was scree vahe with the use of an image guide anatoliy gill. Not Available [facility] ([facility]) [address] [place], [address], 01/14/2022 13:09:33 01/13/20 22 01/14/2022 IGP,R FX APTIM A HPV ALL PTH . Commen t The HPV DNA refle x crite matthias were not met with this speci men resul t there fore, no HPV testi ng was perfo rmed. Not Available [facility] ([facility]) [address] [facility], [place], [address], 01/14/2022 13:09:33 01/13/20 22 01/12/2022 pregn arminda test, urine HCG negati ve Not Available [place] [employer] [address] [facility] , [place], [address], 01/12/2022 14:37:35 02/10/20 22 02/09/2022 CBC W/AUT O DIFFE RENTI AL note See Note Order ing Provi tata: Yolanda Ch (Appl eton) Not Available [address] , [place], [address], 02/09/2022 14:27:37 02/10/20 22 02/09/2022 CBC W/AUT O DIFFE RENTI AL white blood cell 8.4 10e3/ uL 4.5-13 .0 normal Not Available [address] Neha Martinez, [place], [address], 02/09/2022 14:27:37 02/10/20 22 02/09/2022 CBC W/AUT O DIFFE RENTI AL red blood cell 4.27 10e6/ uL 3.80-5 .10 normal Not Available [address] [place], [address], 02/09/2022 14:27:37 02/10/20 22 02/09/2022 CBC W/AUT O DIFFE RENTI AL hemoglobin 12.8 g/dL 11.5-1 5.3 normal Not Available [address] , [place], [address], 02/09/2022 14:27:37 02/10/20 22 02/09/2022 CBC W/AUT O DIFFE RENTI AL hematocrit 38.6 % 34.0-4 6.0 normal Not Available [address] Neha [place], [place], [address], 02/09/2022 14:27:37 02/10/20 22 02/09/2022 CBC W/AUT O DIFFE RENTI AL mean cell volume 90 fL 78.0-9 8.0 normal Not Available [address] Neha Martinez, [place], [address], 02/09/2022 14:27:37 02/10/20 22 02/09/2022 CBC W/AUT O DIFFE RENTI AL mean cell HGB 30.0 pg 25.0-3 5.0 normal Not Available [address] Neha Martinez, [place], [address], 02/09/2022 14:27:37 02/10/20 22 02/09/2022 CBC W/AUT O DIFFE RENTI AL mean cell HGB concentratio n 33.2 g/dL 31.0-3 6.0 normal Not Available [address] Neha Martinez, [place], [address], 02/09/2022 14:27:37 02/10/20 22 02/09/2022 CBC W/AUT O DIFFE RENTI AL red cell distribution width 13.3 % 11.0-1 5.0 normal Not Available [address] Neha Martinez, [place], [address], 02/09/2022 14:27:37 02/10/20 22 02/09/2022 CBC W/AUT O DIFFE RENTI AL platelet count 223 10e3/ uL 150-40 0 normal Not Available [address] [place]ha [place], [place], [address], 02/09/2022 14:27:37 02/10/20 22 02/09/2022 CBC W/AUT O DIFFE RENTI AL immature granulocyte % 0 0-1 normal Not Available [address] , [place], [address], 02/09/2022 14:27:37 02/10/20 22 02/09/2022 CBC W/AUT O DIFFE RENTI AL neutrophil % 71 % 35-75 normal Not Available [address] , [place], [address], 02/09/2022 14:27:37 02/10/20 22 02/09/2022 CBC W/AUT O DIFFE RENTI AL lymphocyte % 23 % 10-50 normal Not Available [address] , [place], [address], 02/09/2022 14:27:37 02/10/20 22 02/09/2022 CBC W/AUT O DIFFE RENTI AL monocyte % 6 % 0-15 normal Not Available [address] , [place], [address], 02/09/2022 14:27:37 02/10/20 22 02/09/2022 CBC W/AUT O DIFFE RENTI AL eosinophil % 0 % 0-5 normal Not Available [address] Neha Martinez, [place], [address], 02/09/2022 14:27:37 02/10/20 22 02/09/2022 CBC W/AUT O DIFFE RENTI AL basophil % 0 % 0-5 normal Not Available [address] , [place], [address], 02/09/2022 14:27:37 02/10/20 22 02/09/2022 CBC W/AUT O DIFFE RENTI AL immature granulocyte # 0.02 x1000 /uL 0-0.05 normal Not Available [address] , [place], [address], 02/09/2022 14:27:37 02/10/20 22 02/09/2022 CBC W/AUT O DIFFE RENTI AL neutrophil # 5.90 x1000 /uL 1.50-8 .00 normal Not Available [address] , [place], [address], 02/09/2022 14:27:37 02/10/20 22 02/09/2022 CBC W/AUT O DIFFE RENTI AL lymphocyte # 1.92 x1000 /uL 1.20-5 .20 normal Not Available [address] , [place], [address], 02/09/2022 14:27:37 02/10/20 22 02/09/2022 CBC W/AUT O DIFFE RENTI AL monocyte # 0.49 x1000 /uL 0.40-0 .90 normal Not Available [address] [place]ha Martinez, [place], [address], 02/09/2022 14:27:37 02/10/20 22 02/09/2022 CBC W/AUT O DIFFE RENTI AL eosinophil # 0.02 x1000 /uL 0.00-0 .50 normal Not Available [address] Neha Martinez, [place], [address], 02/09/2022 14:27:37 02/10/20 22 02/09/2022 CBC W/AUT O DIFFE RENTI AL basophil # 0.02 x1000 /uL 0.00-0 .30 normal Not Available [address] , [place], [address], 02/09/2022 14:27:37 02/10/20 22 02/09/2022 CBC W/AUT O DIFFE RENTI AL NRBC automated 0.0 /100_ WBC Not Available [address] , [place], [address], 02/09/2022 14:27:37 02/10/20 22 02/09/2022 CBC W/AUT O DIFFE SIMÓN VOGT performing lab see note ML - [facility] [address] [facility] [id number] Not Available [address] , [place], [address], 02/09/2022 14:27:37 02/10/20 22 02/09/2022 COMP METAB OLIC PANEL note See Note Order ing Provi tata: Yolanda Ch (Appl eton) Not Available [address] , [place], [address], 02/09/2022 14:41:10 02/10/20 22 02/09/2022 COMP METAB OLIC PANEL sodium 138 mmol/ L 136-14 5 normal Not Available [address] , [place], [address], 02/09/2022 14:41:10 02/10/20 22 02/09/2022 COMP METAB OLIC PANEL potassium 4.1 mmol/ L 3.5-5. 1 normal Not Available [address] , [place], [address], 02/09/2022 14:41:10 02/10/20 22 02/09/2022 COMP METAB OLIC PANEL chloride 103 mmol/ L 98-107 normal Not Available [address] , [place], [address], 02/09/2022 14:41:10 02/10/20 22 02/09/2022 COMP METAB OLIC PANEL carbon dioxide 26 mmol/ L 24-33 normal Not Available [address] , [place], [address], 02/09/2022 14:41:10 02/10/20 22 02/09/2022 COMP METAB OLIC PANEL anion gap 13.1 mmol/ L 10-20 normal Not Available [address] , [place], [address], 02/09/2022 14:41:10 02/10/20 22 02/09/2022 COMP METAB OLIC PANEL glucose 86 mg/dL 70-99 normal Not Available [address] [place]ha Martinez, [place], [address], 02/09/2022 14:41:10 02/10/20 22 02/09/2022 COMP METAB OLIC PANEL blood urea nitrogen 12 mg/dL 7-18 normal Not Available [address] , [place], [address], 02/09/2022 14:41:10 02/10/20 22 02/09/2022 COMP METAB OLIC PANEL creatinine 1.06 mg/dL 0.55-1 .02 high Not Available [address] Neha Martinez, [place], [address], 02/09/2022 14:41:10 02/10/20 22 02/09/2022 COMP METAB OLIC PANEL BUN/creatini ne ratio 11 12-20 low Not Available [address] [place], [place], [address], 02/09/2022 14:41:10 02/10/20 22 02/09/2022 COMP METAB OLIC PANEL total protein 7.8 g/dL 6.4-8. 2 normal Not Available [address] , [place], [address], 02/09/2022 14:41:10 02/10/20 22 02/09/2022 COMP METAB OLIC PANEL albumin 4.0 g/dL 3.4-5. 0 normal Not Available [address] [place], [address], 02/09/2022 14:41:10 02/10/20 22 02/09/2022 COMP METAB OLIC PANEL globulin 3.8 g/dL 1.5-4. 0 normal Not Available [address] [place], [address], 02/09/2022 14:41:10 02/10/20 22 02/09/2022 COMP METAB OLIC PANEL albumin/glob ulin ratio 1.1 0.5-2. 0 normal Not Available [address] [place], [address], 02/09/2022 14:41:10 02/10/20 22 02/09/2022 COMP METAB OLIC PANEL calcium 9.4 mg/dL 8.5-10 .1 normal Not Available [address] , [place], [address], 02/09/2022 14:41:10 02/10/20 22 02/09/2022 COMP METAB OLIC PANEL osmolality serum calculated 274 mOsm/ kg 272-28 8 normal Not Available [address] [place], [address], 02/09/2022 14:41:10 02/10/20 22 02/09/2022 COMP METAB OLIC PANEL glom filtr rate (estimated) > 60 mL/mi n >60 normal Not Available [address] [place], [address], 02/09/2022 14:41:10 02/10/20 22 02/09/2022 COMP METAB OLIC PANEL GFR est (if -amer ican) > 60 mL/mi n >60 normal Not Available [address] [place], [address], 02/09/2022 14:41:10 02/10/20 22 02/09/2022 COMP METAB OLIC PANEL bilirubin total 0.4 mg/dL 0.2-1. 0 normal Use of this assay is not recom maxim d for patie nts under going treat ment with Eltro mbopa g due to the poten tial for false ly eleva idris resul ts. Not Available [address] , [place], [address], 02/09/2022 14:41:10 02/10/20 22 02/09/2022 COMP METAB OLIC PANEL SGOT/AST 12 U/L 15-37 low Not Available [address] [place], [address], 02/09/2022 14:41:10 02/10/20 22 02/09/2022 COMP METAB OLIC PANEL SGPT/ALT 18 U/L 14-59 normal Not Available [address] , [place], [address], 02/09/2022 14:41:10 02/10/20 22 02/09/2022 COMP METAB OLIC PANEL alkaline phosphatase total 35 U/L 46-116 low Not Available [address] , [place], [address], 02/09/2022 14:41:10 02/10/20 22 02/09/2022 COMP METAB OLIC PANEL performing lab see note - [facility] [address] [facility] [id number] Not Available [address] [place], [address], 02/09/2022 14:41:10 02/10/20 22 02/09/2022 URINA LYSIS COMPL ETE note See Note Order ing Provi tata: Yolanda Ch (Appl eton) Not Available [address] [place], [address], 02/09/2022 14:42:16 02/10/20 22 02/09/2022 URINA LYSIS COMPL ETE UA method of collection CLEAN CATCH Not Available [address] [place]ha [place], [place], [address], 02/09/2022 14:42:16 02/10/20 22 02/09/2022 URINA LYSIS COMPL ETE UA color LT YELLOW yellow Not Available [address] , [place], [address], 02/09/2022 14:42:16 02/10/20 22 02/09/2022 URINA LYSIS COMPL ETE UA appearance SL.MICHELE UDY clear Not Available [address] , [place], [address], 02/09/2022 14:42:16 02/10/20 22 02/09/2022 URINA LYSIS COMPL ETE UA glucose dipstick NEGATI VE negati ve Not Available [address] Neha [place], [place], [address], 02/09/2022 14:42:16 02/10/20 22 02/09/2022 URINA LYSIS COMPL ETE UA bilirubin dipstick NEGATI VE negati ve Not Available [address] [place]ha [place], [place], [address], 02/09/2022 14:42:16 02/10/20 22 02/09/2022 URINA LYSIS COMPL ETE UA ketone dipstick NEGATI VE negati ve Not Available [address] [place], [address], 02/09/2022 14:42:16 02/10/20 22 02/09/2022 URINA LYSIS COMPL ETE UA specific gravity 1.010 1.005- 1.030 normal Not Available [address] [place], [address], 02/09/2022 14:42:16 02/10/20 22 02/09/2022 URINA LYSIS COMPL ETE UA blood dipstick 3+ negati ve abnormal Not Available [address] [place], [address], 02/09/2022 14:42:16 02/10/20 22 02/09/2022 URINA LYSIS COMPL ETE UA pH dipstick 7.0 5.0-9. 0 normal Not Available [address] [place], [address], 02/09/2022 14:42:16 02/10/20 22 02/09/2022 URINA LYSIS COMPL ETE UA protein dipstick NEGATI VE negati ve Not Available [address] [place], [address], 02/09/2022 14:42:16 02/10/20 22 02/09/2022 URINA LYSIS COMPL ETE UA urobilinogen dipstick NEGATI VE mg/dL <1 Not Available [address] , [place], [address], 02/09/2022 14:42:16 02/10/20 22 02/09/2022 URINA LYSIS COMPL ETE UA nitrite dipstick NEGATI VE negati ve Not Available [address] [place], [address], 02/09/2022 14:42:16 02/10/20 22 02/09/2022 URINA LYSIS COMPL ETE UA leukocyte esterase dipstick 2+ negati ve abnormal Not Available [address] [place], [address], 02/09/2022 14:42:16 02/10/20 22 02/09/2022 URINA LYSIS COMPL ETE UA RBC 0-5 RBC/h pf none seen abnormal Not Available [address] , [place], [address], 02/09/2022 14:42:16 02/10/20 22 02/09/2022 URINA LYSIS COMPL ETE UA WBC 0-5 WBC/h pf 0-5 Not Available [address] , [place], [address], 02/09/2022 14:42:16 02/10/20 22 02/09/2022 URINA LYSIS COMPL ETE UA epithelial cells 21-30 SQUAMO US epi/h pf 0-5 abnormal Not Available [address] , [place], [address], 02/09/2022 14:42:16 02/10/20 22 02/09/2022 URINA LYSIS COMPL ETE UA bacteria 1+ none seen abnormal Not Available [address] , [place], [address], 02/09/2022 14:42:16 02/10/20 22 02/09/2022 URINA LYSIS COMPL ETE UA mucus NONE SEEN none seen Not Available [address] , [place], [address], 02/09/2022 14:42:16 02/10/20 22 02/09/2022 URINA LYSIS COMPL ETE UA amorphous sediment NONE SEEN none seen Not Available [address] , [place], [address], 02/09/2022 14:42:16 02/10/20 22 02/09/2022 URINA LYSIS COMPL ETE comment 1 >20 EPI'S No Cultu re Perfo rmed. Speci men faile d Refle x Cultu re Crite matthias. Not Available [address] [place], [address], 02/09/2022 14:42:16 02/10/20 22 02/09/2022 URINA LYSIS COMPL ETE performing lab see note - [facility] [address] [facility] [id number] Not Available [facility] [address], [place], [address], 02/09/2022 14:42:16 07/20/19 23 07/23/2022 IGP, APTIM A HPV, RFX 16/18 ,45 HPV aptima Negati ve negati ve This nucle ic acid ampli ficat ion test detec ts fourt een high- risk HPV types (16,1 8,31, 33,35 ,39,4 5,51, 52,56 ,58,5 9,66, 68) witho ut diffe renti ation . Not Available [facility] (Lab) [id number] [address], [place], [address], 07/25/2022 13:07:39 07/20/19 23 07/25/2022 IGP, APTIM A HPV, RFX 16/18 ,45 diagnosis: Commen t NEGAT BALBINA FOR INTRA EPITH ELIAL LESIO N OR MAGGIE SMITH . PREDO MINAN CE OF [place] BACIL LI CONSI STENT WITH SHIFT IN VAGIN AL ARSLAN IS PRESE NT. Not Available [facility] (Lab) [id number] [address], [place], [address], 07/25/2022 13:07:39 07/20/19 23 07/25/2022 IGP, APTIM A HPV, RFX 16/18 ,45 specimen adequacy: Commen t Satis facto ry for evalu ation . No endoc ervic al compo nent is ident ified . Not Available [facility] (Lab) [id number] [facility], [place], [address], 07/25/2022 13:07:39 07/20/19 23 07/25/2022 IGP, APTIM A HPV, RFX 16/18 ,45 clinician provided ICD10: Monae aldana Z12.4 Not Available [facility] (Lab) [id number] [place] [place] [address], [place], [address], 07/25/2022 13:07:39 07/20/19 23 07/25/2022 IGP, APTIM A HPV, RFX 16/18 ,45 performed by: Monae Garcia Sr, Cytojovan aldana (ASCP ) Not Available [facility] (Lab) [address] [address], [place], [address], 07/25/2022 13:07:39 07/20/19 23 07/25/2022 IGP, APTIM A HPV, RFX 16/18 ,45 . . Not Available [facility] (Lab) [address] [place] [address], [place], [address], 07/25/2022 13:07:39 07/20/19 23 07/25/2022 IGP, APTIM [...] Not Available [facility] ([facility]) [address] [address], [place], [address], 07/25/2022 13:07:39 07/20/19 23 07/25/2022 IGP, APTIM A HPV, RFX 16/18 ,45 test methodology: Monae aldana This liqui d based ThinP rep(R ) pap test was scree vahe with the use of an image guide anatoliy lance Not Available [facility] (Lab) [address] [place] [address], [place], [address], 07/25/2022 13:07:39 07/20/19 23 07/25/2022 IGP, APTIM A HPV, RFX 16/18 ,45 HPV genotype reflex Commen t Crite matthias not met, HPV Genot ype not perfo rmed. Not Available [facility] ([facility]) [address], [place], [address], 07/25/2022 13:07:39 01/06/20 23 01/06/2023 NUSWA B VAGIN ITIS PLUS (VG+) atopobium vaginae Low - 0 score Not Available [facility] ([facility]) [address] [place], [address], 01/11/2023 10:36:49 01/06/20 23 01/06/2023 NUSWA B VAGIN ITIS PLUS (VG+) bvab 2 Modera te - 1 score Not Available [facility] ([facility]) [address] [facility], [place], [address], 01/11/2023 10:36:49 01/06/20 23 01/06/2023 NUSWA B [...] Drug Admin istra tion. Not Available [facility] ([facility]) [address] [place], [address], 01/11/2023 10:36:49 01/06/20 23 01/06/2023 NUSWA B VAGIN ITIS PLUS (VG+) bisi albicans, AVIVA Negati ve negati ve Not Available [facility] ([facility]) [address] [facility], [place], [address], 01/11/2023 10:36:49 01/06/20 23 01/06/2023 NUSWA B VAGIN ITIS PLUS (VG+) bisi glabrata, AVIVA Negati ve negati ve Not Available [facility] ([facility]) [address] [facility], [place], [address], 01/11/2023 10:36:49 01/06/20 23 01/06/2023 NUA B VAGIN ITIS PLUS (VG+) trich vag by AVIVA Negati ve negati ve Not Available [facility] ([facility]) [address] [facility], [place], [address], 01/11/2023 10:36:49 01/06/20 23 01/06/2023 NUSWA B VAGIN ITIS PLUS (VG+) chlamydia trachomatis, AVIVA Negati ve negati ve Not Available [facility] ([facility]) [address] [facility], [place], [address], 01/11/2023 10:36:49 01/06/20 23 01/06/2023 NUSWA B VAGIN ITIS PLUS (VG+) neisseria gonorrhoeae, AVIVA Negati ve negati ve Not Available [facility] ([facility]) [address] [place], [address], 01/11/2023 10:36:49 01/06/20 23 01/06/2023 TSH+F REE T4 TSH 0.400 uIU/m L 0.450- 4.500 below low normal Not Available [facility] ([facility]) [address] [place], [address], 01/11/2023 10:36:51 01/06/20 23 01/06/2023 TSH+F REE T4 T4,free(dire ct) 1.17 NG/dL 0.82-1 .77 Not Available [facility] ([facility]) [address] [place], [address], 01/11/2023 10:36:51 01/06/20 23 01/06/2023 TESTO STERO NE,FR EE AND TOTAL testosterone 46 NG/dL 13- Not Available [facility] ([facility]) [address] [facility], [place], [address], 01/11/2023 10:36:51 01/06/2001/11/2023 TESTO STERO NE,FR EE AND TOTAL free testosterone (direct) 1.0 pg/mL 0.0-4. 2 Not Available [facility] ([facility]) [address] [facility], [place], [address], 01/11/2023 10:36:51 01/06/20 23 01/06/2023 HIV AB/P2 4 AG WITH REFLE X HIV Ab/P24 Ag screen Non Reacti ve non reacti ve HIV Negat balbina HIV-1 /HIV- 2 antib odies and HIV-1 p24 antig en were NOT detec idris. There is no labor atory evide nce of HIV infec tion. Not Available [facility] ([facility]) [address] [facility], [place], [address], 01/11/2023 10:36:52 01/06/20 23 01/06/2023 RPR, RFX QN RPR/C ONFIR M TP RPR Non Reacti ve non reacti ve Not Available [facility] ([facility]) [address] [facility], [place], [address], 01/11/2023 10:36:53 01/06/20 23 01/06/2023 HCV ANTIB [...] e HCV infec tion. Not Available [facility] ([facility]) [address] [facility], [place], [address], 01/11/2023 10:36:54 01/06/20 23 01/06/2023 HEMOG LOBIN A1C hemoglobin A1C 4.7 % 4.8-5. 6 below low normal Predi abete s: 5.7 - 6.4 Diabe danilo: >6.4 Glyce morena contr ol for adult s with diabe danilo: <7.0 Not Available [facility] ([facility]) [address] [facility], [place], [address], 01/11/2023 10:36:55 01/06/2001/06/2023 HBSAG SCREE N HBsAg screen Negati ve negati ve Not Available [facility] ([facility]) [address] [facility], [place], [address], 01/11/2023 10:36:56 01/07/2001/06/2023 IGP, APTIM A HPV, RFX 16/18 ,45 HPV aptima Negati ve negati ve This nucle ic acid ampli ficat ion test detec ts fourt een high- risk HPV types (16,1 8,31, 33,35 ,39,4 5,51, 52,56 ,58,5 9,66, 68) witho ut diffe renti ation . Not Available [facility] ([facility]) [address] [facility], [place], [address], 01/07/2023 12:13:17 01/07/20 23 01/07/2023 IGP, APTIM A HPV, RFX 16/18 ,45 diagnosis: Commen t NEGAT BALB[place] FOR INTRA EPITH ELIAL LESIO N OR MALIG LUIS . SPECI MEN REPRO CESSE D FOR INTER PRETA TION USING GLACI AL ACETI C ACID (GAA) . Not Available [facility] ([facility]) [address] [place], [address], 01/07/2023 12:13:17 01/07/20 23 01/07/2023 IGP, APTIM A HPV, RFX 16/18 ,45 specimen adequacy: Monae aldana Satis facto ry for evalu ation . Endoc ervic al and/o r squam ous metap lasti c cells (endo cervi kim compo nent) are prese nt. Areas of parti ally obscu ring blood are prese nt. Not Available [facility] ([facility]) [address] [place], [address], 01/07/2023 12:13:17 01/07/2001/07/2023 IGP, APTIM A HPV, RFX 16/18 ,45 clinician provided ICD10: Monae aldana Z11.3 N93.9 N93.0 Not Available [facility] ([facility]) [address] [place], [address], 01/07/2023 12:13:17 01/07/20 23 01/07/2023 IGP, APTIM A HPV, RFX 16/18 ,45 performed by: Monae jesus, Cytot stefany aldana (ASCP ) Not Available [facility] ([facility]) [address] [place], [address], 01/07/2023 12:13:17 01/07/2001/07/2023 IGP, APTIM A HPV, RFX 16/18 ,45 . . Not Available [facility] ([facility]) [address] [place], [address], 01/07/2023 12:13:17 01/07/20 23 01/07/2023 IGP, APTIM [...] ts do occur . Not Available [facility] ([facility]) [address] [facility], [place], [address], 01/07/2023 12:13:17 01/07/20 23 01/07/2023 IGP, APTIM A HPV, RFX 16/18 ,45 test methodology: Remaen t This liqui d based ThinP rep(R ) pap test was scree vahe with the use of an image guide anatoliy gill. Not Available [facility] ([facility]) [address] [facility], [place], [address], 01/07/2023 12:13:17 01/07/20 23 01/07/2023 IGP, APTIM A HPV, RFX 16/18 ,45 HPV genotype reflex Commen t Crite matthias not met, HPV Genot ype not perfo rmed. Not Available [facility] ([facility]) [address] [place], [address], 01/07/2023 12:13:17 01/10/20 23 01/09/2023 pregn arminda test, urine HCG negati ve Not Available [facility] [address] [facility] , [place], [address], 01/09/2023 16:30:54 10/17/19 22 10/16/2021 CT, abdom en + pelvi s, w/o contr ast No observ ation record ed. [email or web address] [facility] ([facility]) [address], [place], [place], [address], 10/18/2021 23:08:20 11/22/19 22 11/21/2021 XR, chest , 2 view No observ ation record ed. [address], [place], [address], 11/25/2021 11:38:59 11/22/19 22 11/21/2021 imagi ng/di agnos tic resul t No observ ation record ed. [address], [place], [address], 11/25/2021 11:38:47 Result Notes None recorded. Problems Name Problem SNOMED Code Status Onset Date Resolution Date Notes Provider Name and Address Organization Details Recorded Time Anemia of pregnanc y 47036898 Completed 09/25/2019 Removal Reason: resolved Zainab Ch MD [address], [place], [address] , [place] [facility] 17:43:51 Body mass index 30+ - obesity 529089526 Completed 201709/24/2021 Araseli Mills APRN [address], [place], [address] , [place] - [facility] 10:23:33 Polycyst ic ovaries Active 2017 Amelie Myafield null, [place] - [facility] 2 13:09:23 Oligomen orrhea 40083540 Completed 201708/16/2021 Zainab Ch MD [address], [place], [address] , [place] [facility] 19:31:58 Abnormal uterine bleeding 20923508213 100 Completed 201708/16/2021 Zainab Ch MD [address], [place], [address] , [place] [facility] 19:31:46 Hidraden itis 86478622 Active 2017 Amelie [place] null[place] [facility] 13:09:13 Pelvic floor dysfunct ion 196849564 Active 2018 Amelie [place] [facility] 13:09:18 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 a 362994629 Active 2019 Amelie [place] [facility] 13:08:57 History of SARS-CoV -2 16708842046 3399093 Completed 202010/01/2020 Bibi Gordon [place], [place] [facility] 1 11:37:52 [facility] hyperten morelia 35812216 Active 2020 Amelie [place] [facility] 13:09:07 Migraine 66814521 Active 2020 Amelie [place] [facility] 13:09:17 Gastroes ophageal reflux disease 845549172 Active 2020 Amelie [place] [facility] 13:09:11 Chronic constipa tion 551911567 Active 2020 Amelie [place] [facility] 13:09:01 Dysuria 33326707 Active 2021 Amelie [place] [facility] 13:09:03 Body mass index 40+ - severely obese 331920066 Active 2021 Amelie [place] [facility] 13:08:55 Morbid obesity 034988679 Active 2022 Ag Crouch RN [address], [place], [address] , [place] [facility] 14:17:15 Problem Notes None recorded. Procedures Surgical History Date Name Laterality Status Provider Name and Address Organization Details Recorded Time 03/08/20 Colposcopy cancelled Amelie Mayfield [place] - [facility] 01/27/20 09:08:30 01/06/20 Date of Last Pap Smear completed Zainab Ch MD [address], [place], [address], [place] [facility] 10/30/2023 19:57:44 01/27/20 Colposcopy completed Zainab Ch MD [address], [place], [address], [place] [facility] 2021 20:07:34 01/27/20 21 Colposcopy completed Araseli Mills APRN [address], [place], [address], [place] [facility] 09/24/2021 09:21:24 01/27/20 21 Colposcopy completed Fatuma Tsai [place] - [facility] 01/11/2022 10:21:09 07/18/19 21 Date of Last Colonoscopy completed Monica Vásquez [place] - [facility] 08/12/2021 14:09:13 09/11/19 20 LEEP Procedure completed Zainab Ch MD [address], [place], [address], [place] [facility] 09/11/2019 16:00:11 09/11/19 20 [...] Name and Address Organization Details Recorded Time 152219 Reglan medicatio n other moderate Not available [...] Updated DateTime 07/20/2022 167.64 cm 40.8 kg/m2 370336.87 g 116/72 mm[Hg] Monica Vás[place] [facility] 07/20/2022 16:34:38 Date Recorded Body height Body mass index (BMI) Body weight Pain severity - 0-10 verbal numeric rating [Score] - Reported Systolic And Diastolic Provider Name and Address Organization Details Last Updated DateTime 09/24/2021 167.64 cm 40.2 kg/m2 875241.5 g 0 116/78 mm[Hg] Erinjackeline Gibbons [facility] [place] 2 09:12:59 Date Recorded Body height Body mass index (BMI) Body weight Systolic And Diastolic Provider Name and Address Organization Details Last Updated DateTime 01/05/2023 167.64 cm 40 kg/m2 056528.91 g 118/82 mm[Hg] Amelie Mayfield [facility] [place] 01/05/2023 14:16:13 Date Recorded Body height Body mass index (BMI) Body weight Pain severity - 0-10 verbal numeric rating [Score] - Reported Systolic And Diastolic Provider Name and Address Organization Details Last Updated DateTime 01/12/2022 167.64 cm 40.2 kg/m2 806188.5 g 0 104/62 mm[Hg] Erincody Gibbons [facility] [place] 2 14:34:42 Date Recorded Body height Body mass index (BMI) Body weight Systolic And Diastolic Provider Name and Address Organization Details Last Updated DateTime 02/09/2022 167.64 cm 39.1 kg/m2 409604.35 g 126/78 mm[Hg] Amelie Mayfield [facility] [place] 02/09/2022 13:07:43 Social History Question Answer Notes LastModified by Organizat ion Details LastModified Time Tobacco Smoking Status Former Smoker Monica wilkinson, [place] - [facility] 07/20/2022 16:27:52 Able To Swim? [...] COVID-19 While That Case Was Ill? No [email or web address] Information not available 02/09/2022 In The 14 [...] Or The Highest Degree You Have Received? [id number] Information not available 01/30/2018 How Many Days [...] Much Tobacco Do You Smoke? 0.5 PPD [email or web address] Information not available 02/09/2022 General Stress Level [...] ? No, I Don't Want To Become [email or web address] Information not available 02/09/2022 What Is Your Reason For Having No Contraceptive Method At Start Of This Visit? Other Information not available 08/12/2021 Sex: Female Functional Status Question Answer Note LastModified by Organizat ion Details LastModified Time Do you or have you ever used smokeless tobacco? Never used smokeless tobacco [email or web address] Information not available 12/05/2020 Are you currently [...] not available 01/30/2018 What is your occupation? [employer] ([employer] Information not available 07/20/2022 Mental Status Question Answer Note LastModified by Organizat ion Details LastModified Time Do you feel stressed (tense, restless, nervous, or anxious, or unable to sleep at night)? [id number] Information not available 08/12/2021 Do you have [...] Not available 2018 15:18:11 Mother Uterine leiomyoma [email or web address] Not available 2021 09:10:51 Medical History Condition [...] N Arthritis N Restless Leg Syndrome N Infertility N Polyps N Carpal Tunnel N Mental Disorder N Acid Reflux (GERD) N Cancer N Stroke N Varicosities N Tendonitis N Crohn's Disease N Hypercholesterolemia N Skin Cancer N Fibromyalgia N Headaches N Irritable Bowel Syndrome N Anal Fissure [...] Than N Lung Disease N Hypothyroidism N Developmental or Behavioral Disorders N Defects or Inherited Disease N Breast Problem N Difficulty Swallowing N Ovarian Cyst N Anesthesia Complications N Testosterone Deficiency N Meniere's disease N Head Injury/Concussion N Interstitial Cystitis N Congenital Anomalies N Hypoglycemia N Blood clot N Vitamin D Deficiency N Cellulitis N Endometriosis N Fracture N Bladder or Kidney Problems N Liver Disease N Schizophrenia N Panic [...] Congestive Heart Failure (CHF) N Syncope N Insomnia N Hyperlipidemia N Eczema N Diverticulitis N Dementia N Attention Deficient Disorder N Abuse/Domestic Violence N Ulcerative colitis N Cerebrovascular Disease N Depression N Guillain-[place] N Sleep Apnea N Aneurysm N Heart Disease N Bronchitis N Suicidal Ideation N Pre-Eclampsia N Hypertension [...] ICD10 Code Diagnosis IMO Codes Diagnosis Note [id number] [place] [address] [place] [address] 09/22/2017 12:33:02 09/22/2017 12:51:30 Eustachian tube disorder 08658591 H69.90 [id number] Naheed Hidalgo APRN [address] [place] [address] 01/03/2018 08:05:15 01/03/2018 08:45:21 Hypothyroidism 40325849 E03.9 Anemia 592617795 D64.9 Vitamin D deficiency 347 38747 E55.9 [id number] MD John Blount RN MID[facility] [address] [place] [address] [place] [address] 01/30/2018 15:07:25 01/30/2018 15:58:53 Pain in pelvis 50058426 R10.2 Venereal d isease screening 579395477 Z11.3 Oligomenorrhea 86771062 N91.5 Polycystic ovaries 90146 008 E28.2 Hidradenit is suppurativa 19424280 L73.2 [id number] MD John Blount RN MIDWIFE [address] [place] [address] [place] [address] 02/20/2018 13:18:56 02/20/2018 14:22:33 Oligomenorrhea 78023247 N91.5 Polycystic ovaries 02572 008 E28.2 Pain in pelvis 35056543 R10.2 [id number] MD John Blount RN MIDWIFE [address] [place] [address] [place] [address] 05/02/2018 09:02:13 05/02/2018 09:25:51 Abnormal uterine bleeding 0846026842 9100 N93.9 Oligomenorrhea 13947087 N91.5 Polycystic ovaries 60631 008 E28.2 Hidradenit is suppurativa 58332920 L73.2 [id number] Naheed Hidalgo APRN [address] [place] [address] 06/06/2018 09:51:55 06/06/2018 11:19:11 Acute bronchitis 89936200 J20.9 Cough 09833708 R05 Fatigue 52160380 R53.83 [id number] Sue Anglin APRN [address] [place] [address] 06/28/2018 12:48:18 06/28/2018 17:16:50 Acne 15503822 L70.9 We discussed support measures.P atient provided with printed informatio n on preventati ve and support measures for acne.We discussed starting Spironolac tone and will re-evaluat e in the future. Hidradenit is suppurativa 84166007 L73.2 Patient pleased with the current control with her H.S. She believes that the surgical wash is helping a great deal and will continue use. [id number] MD John Blount RN MIDWIFE [address] [place] [address] [place] [address] 09/11/2018 13:52:08 09/11/2018 14:32:49 Abnormal uterine bleeding 2450639002 9100 N93.9 Hidradenitis 55634282 L7 3.2 Polycystic ovaries 67409 008 E28.2 Venereal d isease screening 988598766 Z11.3 [id number] MD John Blount RN MIDWIFE [address] [place] [address] [place] [id number] 11/02/2018 13:12:35 11/02/2018 13:46:27 Vaginal discharge 094320817 N89.8 Candidiasis of vagina 72 921507 B37.3 [id number] Naheed Hidalgo APRN [address] [place] [address] 11/08/2018 14:48:45 11/08/2018 15:34:32 Fatigue 09769933 R53.83 Memory impairment 568625 006 R41.3 Dizziness and giddiness 030491133 R42 [id number] Naheed Hidalgo APRN [address] [place] [address] 11/21/2018 09:59:56 11/21/2018 15:29:14 Vitamin B12 deficiency (non anemic) 70295833 E53.8 Vitamin D deficiency 347 95114 E55.9 [id number] Naheed Hidalgo APRN [address] [place] [address] 01/10/2019 16:00:28 01/10/2019 16:27:14 Acne 17033114 L70.9 Memory impairment 229190 006 R41.3 Chronic constipation 236 378229 K59.09 Food intolerance 0653936 0 K90.49 Impairment of balance 38 1720808 R26.89 Paresthesi a of lower extremity 190466646 R20.2 [id number] MD John Blount RN MIDWIFE [address] [place] [address] [place] [id number] 03/14/2019 14:57:40 03/14/2019 15:48:16 Routine gynecologic examination done 7601857682 9101 Z01.419 Depression screening 171 282374 Z13.89 PHQ 9 negative Diet education 05688333 Z71.3 Counseling 621605080 Z71 .82 Exercise counsellin g. Patient encouraged to exercise 30 minutes 5 days a week. Examinatio n of blood pressure 245046506 Z01.30 Normotensi ve Screening for malignant neoplasm of cervix 153102107 Z12.4 Pap collected Vaginal discharge 478573 006 N89.8 Pelvic ward or dysfunction 430950685 M62.9 Polycystic ovaries 06827 008 E28.2 Family his tory of breast cancer 568033464 Z80.3 [id number] MD John Blount RN MIDWIFE [address] [place] [address] [place] [id number] 08/21/2019 10:53:04 08/21/2019 11:54:03 Cervical intraepithelial neoplasia grade III with severe dysplasia 993930173 D06.9 [id number] MD John Blount RN MIDWIFE [address] [place] [address] [place] [address] 09/11/2019 14:52:56 09/11/2019 15:49:37 Cervical intraepithelial neoplasia grade III with severe dysplasia 619597615 D06.9 [id number] MD John Blount RN MIDWIFE [address] [place] [address] [place] [id number] 09/25/2019 13:05:49 09/25/2019 13:21:20 History of loop electrosurgical excision procedure 5514376360 9102 Z98.890 Cervical intraepithelial neoplasia grade III with severe dysplasia 087652202 D06.9 [id number] MD John Blount RN MIDWIFE [address] [place] [address] [place] [id number] 11/08/2019 15:58:57 11/08/2019 16:26:39 Mass of left breast 5139167172 8379335 N63.20 [id number] MD John Blount RN MIDWIFE [address] [place] [address] [place] [id number] 02/20/2020 15:34:15 02/20/2020 16:34:29 Cervical intraepithelial neoplasia grade III with severe dysplasia 322567856 D06.9 [facility] 58065741 L70.9 [id number] MD John Blount RN MIDWIFE [address] [place] [address] [place] [address] 06/18/2020 10:30:20 06/18/2020 11:34:32 Polycystic ovary syndrome 405437597 E28.2 Trying to conceive 98562 9001 Z31.9 History of loop electrosurgical excision procedure 6197178769 9102 Z98.188 [id number] MD John Blount RN MIDWIFE [address] [place] [address] [place] [address] 09/29/2020 15:14:02 09/29/2020 16:25:12 Screening for malignant neoplasm of cervix 873067020 Z12.4 Pap collected Cervical intraepithelial neoplasia grade III with severe dysplasia 624213374 D06.9 Dyspareunia 86944927 N94 .10 Mass of left breast 1224 179751 0828740 N63.20 Family his tory of breast cancer 708994789 Z80.3 [id number] Miranda Pa APRN [address] [place] [address] 10/01/2020 11:19:30 10/01/2020 12:03:02 Essential hypertension 49515128 I10 Advised to check BP daily at home. Follow-up in 1 month. Fatigue 36115220 R53.83 Migraine 67311728 G43.90 9 [id number] Miranda Pa APRN [address] [place] [address] 10/17/2020 08:06:55 10/17/2020 08:38:56 Essential hypertension 68411471 I10 Advised to check BP daily at home. Follow-up in 1 month. Migraine 48631931 G43.90 9 She has not used the sumatripta n yet, only Tylenol PRN. Body mass index 30+ - obesity 648254222 Z68.38 Hidradenit is suppurativa 21215115 L73.2 [id number] Miranda Pa APRN [address] [place] [address] 11/04/2020 08:18:10 11/04/2020 09:01:54 Migraine 38282470 G43.909 Dizziness 612412660 R42 Labs previously done at last visit were normal. Blurring o f visual image 397640750 H53.8 Neck pain 95261837 M54.2 [id number] Miranda Pa APRN [address] [place] [address] 12/05/2020 08:15:03 12/05/2020 09:06:31 Edema of lower extremity 471483216 R60.0 Resolved - advised on elevation of legs, adequate hydration, reduced sodium intakes, compressio n stockings PRN. F/U if worsens. Low back pain 678543871 M54.5 Thoracic back pain 06365 8004 M54.6 Migraine 73754284 G43.90 9 Advised to F/U with Neuro as scheduled. F/U in office needed before then. [id number] Miranda Pa APRN [address] [place] [address] 12/09/2020 13:55:58 12/09/2020 14:38:24 Body mass index 30+ - obesity 366823024 Z68.39 Chest pain 80617485 R07. 9 Labs performed previously . Will refer to Cardiology today. F/U in office if symptoms worsen, or go to ER for any chest pain lasting longer than 5 minutes or increased shortness of breath. Already had recent labs October 2020 - no need for additional labs today. Palpitations 18906520 R0 0.2 [id number] MD Mere [place] RN MIDWIFE [address] [place] [address] [place] [id number] 01/26/2021 13:12:53 01/26/2021 14:39:11 Abnormal cervical Papanicolaou smear 310048897 R87.619 Screening for malignant neoplasm of cervix 261251977 Z12.4 [id number] MD Mere [place] RN MIDWIFE [address] [place] [address] [place] [address] 04/15/2021 08:58:03 04/15/2021 09:18:57 Abnormal cervical Papanicolaou smear 189020931 R87.619 Vaginal discharge 613952 006 N89.8 Dyspareunia 75071467 N94 .10 [id number] Corry Sears APRN [address] [place] [address] 06/18/2021 09:38:21 06/18/2021 10:27:06 Abdominal pain 16263796 R10.9 Depression screening 171 291202 Z13.31 Gastroesop hageal reflux disease 777863669 K21.9 Chronic constipation 236 002767 K59.09 Abdominal bloating 56457 9008 R14.0 Nausea 442670963 R11.0 Body mass index 40+ - severely obese 374258532 Z68.41 [id number] MD John Blount RN MIDWIFE [address] [place] [address] [place] [address] 08/12/2021 13:57:13 08/12/2021 14:45:12 Routine gynecologic examination done [id number] 9101 Z01.419 Depression screening 171 612383 Z13.89 PHQ 9 negative Diet education 00996225 Z71.3 Counseling 492560850 Z71 .82 Exercise counsellin g. Patient encouraged to exercise 30 minutes 5 days a week. Examinatio n of blood pressure 152446943 Z01.30 Normotensi ve Vaccine de clined by patient 1443094831 02 Z28.21 Obesity 273378163 E66.9 Screening for malignant neoplasm of cervix 952768123 Z12.4 Hidradenit is suppurativa 10800405 L73.2 [id number] Luis Mitchell MD [address] SARAN Sanchez [id number] 7 09/10/2021 14:58:29 09/10/2021 15:35:57 Pharyngitis 266022442 J02.9 [id number] Araseli Mills APRN [facility] [address] [place] [address] SAR[place] Sanchez [id number] 7 09/24/2021 08:40:43 09/24/2021 09:34:52 Dysuria 53468371 R30.9 Chronic constipation 236 009837 K59.09 Body mass index 40+ - severely obese 239604401 Z68.41 [id number] Alis Mays DO [facility] [address] [place] [address] SARAN Sanchez 85353-775 7 01/12/2022 14:23:40 01/12/2022 15:14:15 Irregular periods 40193595 N92.6 Sterilizat ion requested 137160195 Z30.2 Abnormal c ervical Papanicolaou smear 804121225 R87.619 Chronic in terstitial cystitis 666625565 N30.10 [id number] Zainab Ch MD [facility] [address] [place] [address] SARAN Sanchez [id number] 7 02/09/2022 13:00:30 02/09/2022 13:30:25 Pre-surgery evaluation 281447031 Z01.818 Sterilizat ion requested 492343576 Z30.2 Contracept ion care management 935734545 Z30.9 Condyloma acuminata of vulva 527124800 A63.0 [id number] MD John Blount RN MIDWIFE [address] [place] [address] SARAN Sanchez [id number] 7 07/20/2022 16:00:19 07/20/2022 17:05:27 Routine gynecologic examination done 4192869500 9101 Z01.419 Depression screening 171 665199 Z13.89 PHQ 9 negative Examinatio n of blood pressure 943242575 Z01.30 Normotensi ve Body mass index 40+ - severely obese 487949547 Z68.41 Screening for malignant neoplasm of cervix 059224644 Z12.4 Vaginal pain 44345171 R1 0.2 Dyspareunia 16353791 N94 .10 Sebaceous cyst of skin 348558799 L72.3 [id number] MD John Blount RN MIDWIFE [address] [facility] SARAN Sanchez [id number] 7 01/05/2023 13:55:12 01/05/2023 14:44:41 Venereal disease screening 085259961 Z11.3 Postcoital bleeding 4888 0000 N93.0 Abnormal u terine bleeding 0900860982 9100 N93.9 Health Concerns Section Related Observation LastModified by Organization Detai ls LastModified Time None Recorded Concern Status LastModified by Organization Details LastModified Time None Recorded Advance Directives Directive N: Payers Insurance Date Sequence Insurance Name Policy Number Policy Mai Covered Member ID Mai Member ID Guarantor Name 04/23/2023 [place]MEDICAID) Araceli Gill [place] [id number] Katy Gill [place] 01/12/2022 1 [employer] [place] (MEDICAID HMO) Araceli [place] [id number] Katy Homero [place] 04/23/2023 1 [employer] [place] (MEDICAID H[place]) Araceli [place] [id number] Katy Gill [place] 08/21/2019 1 *SELF PAY* Faby levin Homero [place] 02/10/2022 1 [id number] Katy Gill [place] [id number] Katy Gill [place] Notes Date Note Type [...] lots of pressure, cramping. Araseli Mills, MANAGER OF ENVIRONMENTAL SERVICES [address], [place], [address], [place] - [facility] 09/24/2021 10:25:12 2 text/html [...] dietary changes and OTC prelief. Alis wilkinson, [place] - [facility] 01/12/2022 15:06:27 2 text/html ROS [...] surgery. 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 She reports that she is in [...] depression/anxiety. Zainab Ch MD [address], [place], [address], [place] - [facility] 07/29/2022 13:27:41 3 text/html [...] Zainab Ch MD [address], [place], [address], [place] - [facility] 01/09/2023 16:33:00 OBGyn Episode Ob Episode Information Episode Created Date Number of Fetuses Patient Bloodtype Patient rh Status Prepregnancy Weight lbs Domestic Partner Domestic Partner Phone Father Name Associate Professor Of Anthropology Status 01/31/20 18 1 CLOSED Fetus Data [...] Comments 5 Regional-Ep idural 40 false 17 [facility] Discharge Information Feeding Method Contraceptive Method Maternal HG B and HCT Levels
--- OUTSIDE RECORDS SUMMARY | 2025-06-05 05:32 | XMS_ITS | Encounter Summary ---
Author Organization Healthcare Address [address] [place] [address] Care Team Providers Care Metal Casket Assembler Name Role Phone Miranda Pa APRN Primary Care Provider + Encounter Details Date Type Department Care Team (Late st Contact Info) Description 01/22/2021 Community [facility] [address] [place] [address] Miranda Pa APRN 7 [facility] [place] [address] Migraine without status migrainosus, not intractable, unspecified [...] Primary documented in this encounter Care Teams Metal Casket Assembler Relationship Specialty Start Date End Date Miranda Pa APRN 7 [facility] [place] [address] PCP - General 11/28/20 documented as of this encounter
--- OUTSIDE RECORDS SUMMARY | 2025-06-05 05:33 | XMS_ITS | Clinical Summary ---
Author Organization Healthcare Address [address] [place] [address] Care Team Providers Care Shoddy Mill Worker Name Role Phone Miranda Pa HAILEY Primary [...] 2022 [facility]-Cervical Cancer Screening 2025 [facility]-HPV/Cotest 2025 [id number]-68 Vaccine ( - 2024- season) 2025 [facility]-Influenza Vaccine (#1) 2025 [facility]-Zoster [...] [facility] MEDICAID Care Teams Shoddy Mill Worker Relationship Specialty Start Date End Date Miranda Pa APRN [address] [facility] [place] [address] PCP - General 11/28/20
--- OUTSIDE RECORDS SUMMARY | 2025-06-05 05:33 | XMS_ITS | Clinical Summary ---
Author Organization [facility] Address [address] [place] [address] Care Team Providers Care Change Control Specialist Name Role Phone Provider, No Known [...] Description 04/18/2025 9:00 AM EDT Office Visit [facility] [address] [place] [address] Dominguez Deleon MD hydronephrosis during , antepartum, single or unspecified fetus (Primary Dx); Suspected problem with placenta not found; Vapes nicotine containing substance 04/18/2025 8:46 AM EDT - 04/18/2025 11:59 PM EDT Hospital Encounter [facility] [address] [place] [address] Marina Barrera DO Placenta, abnormal, [...] Procedure Name Priority Date/Time Associated Diagnosis Comments [facility] Routine 04/18/2025 9:59 AM EDT Placenta, abnormal, third trimester Large head , unspecified gestational age from Last 3 Months Results * [facility] (04/18/2025 9:59 AM EDT) Anatomical Region Laterality Modality Ultrasound 04/18/2025 9:16 AM EDT Narrative 04/18/2025 10:05 AM EDT PAT NAME: ARACELI RIOS MED REC#: [id number] DA: [id number] PAT GEND: F PAT TYPE: O EXAM JONATHAN: [id number] REF PHYS MARINA [place] Comparison Studies There [...] EFW (oz) 3 oz EFW by: Hadlock (PMY-UE-PC-FL) Extended Tibia 54.2 mm 32w 0d 51% Martine Fibula 52.3 mm 32w 1d 50% Martine Foot 63.3 mm 29% Chitty Radius 46.3 mm 33w 2d 58% Martine Ulna 51.8 mm 32w 5d 45% Martine Cav. septi pel. tr 7.8 mm Doughnut Icer Machine 6.8 mm CM 5.6 mm 10% Nicolaides [...] normal IVC: normal 3-vessel view: Appears normal 8-pwnyyt-gmoivjo view: Appears normal Rt lung: Appears normal [...] Consultation / Office Visit Type: Consultation See [facility] for full consult note. Impression [...] growth assessment (your office) Further ultrasounds/consultation at [facility] at your discretion Coding ======= Description: 82764-04 Detailed Ultrasound Description: 49323-21 BPP without NST Inspector Experimental Assembly: Eneida Akers RDMS Physician: Dominguez Deleon MD Electronically signed by: Dominguez Deleon MD at: 10:05 Procedure Note Dominguez Deleon MD - 04/18/2025 PAT NAME: ARACELI RIOS MED REC#: [id number] DA: [id number] PAT GEND: F PAT TYPE: O EXAM JONATHAN: [id number] REF PHYS MARINA [place] Comparison Studies There are no relevant prior studies to which this study is beingcompared Patient Status Outpatient Indication ======== 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 View: Adequate view ========= [place]orman . Number of fetuses: 1 Dating ====== Method of dating:based on stated ANICETO GA by prior [id number] w + 1 d ANICETO by prior assessment:06/12/2025 Ultrasound examination on:04/18/2025 GA by U/S based upon:AC, BPD, Femur, HC GA by U/S34 w + 5 d ANICETO by U/S:05/25/2025 Assigned:based on stated ANICETO, selected on 04/18/2025 Assigned GA32 w + 1 d Assigned ANICETO:06/12/2025 [id number] d Biometry Standard BPD90.0 mm 36w 3d >99% Hadlock PCF911.5 mm 36w 2d >99% Martine HC315.9 mm 35w 3d 92% Hadlock Cerebellum tr42.6 mm 33w 3d 70% Hill AC299.0 mm 33w 6d 91% Hadlock Femur64.5 mm 33w 2d 69% Hadlock Kcmdlgq46.8 mm 31w 2d 29% Martine HC / AC1.06 EFW2,353 g 33w 6d 92% Hadlock EFW (lb)5 lb EFW (oz)3 oz EFW by:Hadlock (MEP-BV-YY-FL) Extended Tibia54.2 mm 32w 0d 51% Martine Nmbqie73.3 mm 32w 1d 50% Martine Foot63.3 mm 29% Chitty Ycmcbh23.3 mm 33w 2d 58% Martine Ulna51.8 mm 32w 5d 45% Martine Cav. septi pel. tr7.8 mm Vp6.8 mm CM5.6 mm 10% Nicolaides Nasal bone11.6 mm Rt Renal pelvis ap6.9 mm Lt Renal pelvis ap7.7 mm Head / Face / Neck Cephalic index0.82 75% Nicolaides Extremities / Bony Struc FL / BPD0.72 FL / HC0.20 FL / AC0.22 Other Structures WID505 bpm General Evaluation Cardiac activity present. FHR [...] view:Appears normal SVC:normal IVC:normal 3-vessel view:Appears normal 0-lbrkay-jmtatdp view:Appears normal Rt lung:Appears normal Lt lung:normal [...] Consultation / Office Visit Type: Consultation See [facility] for full consult note. Impression [...] growth assessment (your office) Further ultrasounds/consultation at [facility] at your discretion Coding ======= Description:62481-33 Detailed Ultrasound Description:68214-86 BPP without NST Inspector Experimental Assembly: Eneida Akers RDMS Physician: Dominguez Deleon MD Electronically signed by: Dominguez Deleon MD at: 10:05 us Marinabrandie Laurenradha DO IMG US ORDERABLES Final Result from Last [address] [address] [employer] [facility] Care Teams Change Control Specialist Relationship Specialty Start Date End Date Provider, [place] [address] PCP - General 04/10/25
--- OUTSIDE RECORDS SUMMARY | 2025-06-05 05:34 | XMS_ITS | Encounter Summary ---
Author Organization [facility] Address [address] [place] [address] Care Team Providers Care Named Account Executive Name Role Phone Provider, No Known Primary [...] on filedocumented in this encounter Care Teams Named Account Executive Relationship Specialty Start Date End Date Provider, No Known [facility] [place] [address] PCP - General 04/10/25 documented as of this encounter
[2025-06-05] MEDS: CITRIC ACID/SODIUM CITRATE ORAL SOLN 30ML UDC 30 ML PO (06:49)
[2025-06-05] MEDS: LACTATED RINGERS 1000ML 1,000 ML 999 ML IV (06:50)
--- NOTE | 2025-06-05 07:17 | EXP.ANES.CKL ---
[facility] Disclaimer: The information contained in this section may have been updated after the patient was seen, as this information can be updated by other users. Medical History LGA (large for gestational age) fetus affecting management of mother LGA (large for gestational age) fetus Viral syndrome Sinusitis Accelerated growth of fetus Persistent headaches GBS bacteriuria Vaginal bleeding affecting early Palpitations Chest pain Dizziness Tachycardia Maternal obesity affecting , antepartum Irregular periods/menstrual cycles Recurrent candidiasis of vagina Obesity (BMI 35.0-39.9 without comorbidity) PAC (premature atrial contraction) PVC (premature ventricular contraction) Irritable bowel syndrome (IBS) Hemorrhoid Depression Anxiety Kidney stone History of gastroesophageal reflux (GERD) Migraine Surgical History History of cholecystectomy H/O umbilical hernia repair [place] teeth removed H/O adenoidectomy History of tonsillectomy Family History Other Family history of hypothyroidism Family history of myocardial infarction Social History Smoking Status: Current every day smoker tobacco type: e-cigarettes second hand exposure: Yes alcohol intake: never substance use type: denies use current occupational status: employed Travel in the last 8 weeks?: None household members: family and children housing: house lives independently: Yes marital status: education level: college service: No snf: No current occupational exposures/hazards: No caffeine: Yes special ronaldo needs: No agree to transfusion: No do you feel safe at home: Yes victim of physical abuse: No victim of emotional abuse: No victim of sexual abuse: No would you like helpful sources: No Have you lived/traveled outside US in past 30 days?: No Contact w/someone who lives/traveled outside US past 30 days?: No Exposure to someone with infectious disease in past 14 days?: No Do you have a fever (greater than 100.4 F or 38 C)?: No Have you tested positive for COVID-19?: No Exposed to someone with COVID-19 in past 14 days?: No Do you have a sore throat?: No Do you have a cough?: No Do you have any weakness?: No Do you have any diarrhea?: No Are you experiencing any unusual bleeding?: No Do you have any muscle aches/pain?: No Do you have any abdominal pain?: No Are you experiencing loss of taste or smell?: No [facility] Anesthesia Checklist Patient Identification Patient Identification: Arm Band and Verbal (Name & ) Structural Data Admitted From: Inpatient Planned Operative Procedure/s: c section Consent for Planned Operative Procedure(s) Verified: Yes Verified Documents: Surgical Consent and History and Physical NPO Status Verified Time NPO: 00:00 Additional verifications Patient : Yes Anesthesia Reactions: No Hx Blood Transfusions: No Blood Transfusion Reaction: No Airway Assessment Mallampati Score:: Class II Dentition: Good Dentition Neurological Assessment Level of Consciousness: Awake, Alert and Appropriate Hx Seizures: No Numbness or tingling in extremities: No Anesthesia Plan Anesthesia Risk discussed: Yes Anesthesia Plan: Verified ASA Class: II Anesthesia Type: Spinal
--- NOTE | 2025-06-05 07:21 | EXP.OB.APHP ---
OB - H&P: HPI Antepartum History of Present Illness Chief complaint: Scheduled elective History of present illness: Ms Yoselyn Sanders is a 30 yo at 39w0d who presents to [facility] L&D for scheduled elective secondary to LGA and non engaged head. History of forceps delivery with last delivery. Most recent ultrasound 05/20 demonstrated estimated weight 3659 g, 97th percentile with BPD > 98 %ile and HC 93 %ile. With baby measuring large and history of weakened pelvic floor after forceps delivery she is electing for primary . complicated by maternal obesity. She has had good care. Baby is active. She admits to pelvic pressure and contractions. No leakage of fluid. No vaginal bleeding. History of Present Criteria for establishing EDC:: LMP confirmed by 1st trimester US care: good care Ultrasounds: normal mid trimester US Obstetrical complications: none Medical complications: none Labs Blood type: B (+) positive Rubella: immune RPR/VDRL: nonreactive GBS status: positive HBsAG: negative PFSH PFSH Disclaimer: The information contained in this section may have been updated after the patient was seen, as this information can be updated by other users. Medical History (Updated 06/05/25 @ 07:33 by Marina Barrera DO) 39 weeks gestation of LGA (large for gestational age) fetus affecting management of mother LGA (large for gestational age) fetus Viral syndrome Sinusitis Accelerated growth of fetus Persistent headaches GBS bacteriuria Vaginal bleeding affecting early Palpitations Chest pain Dizziness Tachycardia Maternal obesity affecting , antepartum Irregular periods/menstrual cycles Recurrent candidiasis of vagina Obesity (BMI 35.0-39.9 without comorbidity) PAC (premature atrial contraction) PVC (premature ventricular contraction) Irritable bowel syndrome (IBS) Hemorrhoid Depression Anxiety Kidney stone History of gastroesophageal reflux (GERD) Migraine Surgical History History of cholecystectomy H/O umbilical hernia repair [place] teeth removed H/O adenoidectomy History of tonsillectomy Family History Other Family history of hypothyroidism Family history of myocardial infarction Social History Smoking Status: Current every day smoker tobacco type: e-cigarettes second hand exposure: Yes alcohol intake: never substance use type: denies use current occupational status: employed Travel in the last 8 weeks?: None household members: family and children housing: house lives independently: Yes marital status: education level: college service: No half-way: No current occupational exposures/hazards: No caffeine: Yes special ronaldo needs: No agree to transfusion: No do you feel safe at home: Yes victim of physical abuse: No victim of emotional abuse: No victim of sexual abuse: No would you like helpful sources: No Other Medical History Have you received the Flu Vaccine for this season: No Have you received the Pneumonia Vaccine: No Review of Systems Review of Systems Review of systems:: pertinent systems reviewed and negative unless documented below *Genitourinary Comments: + pelvic pressure, contractions, hip pain Integumentary/Breasts Comments: + lower extremity swelling Meds Home Medications and Allergies Home Medications ?Medication ?Instructions ?Recorded ?Confirmed ?Type vit no.95-ferrous 1 tab PO DAILY #90 tabs 01/11/25 06/03/25 Rx fumarate 28 mg-folic acid 800 mcg tablet () New Prescriptions to Start Prescriptions: Allergies Allergy/AdvReac Type Severity Reaction Status Date / Time metoclopramide (From Reglan) Allergy Mild Hives Verified 06/03/25 10:36 famotidine (From Pepcid) Allergy Unknown Verified 06/03/25 10:36 allergy reaction prochlorperazine (From Allergy Unknown Verified 06/03/25 10:36 Compazine) allergy reaction levothyroxine AdvReac Intermediate hot flashes Verified 06/03/25 10:36 acetaminophen (From Lortab) AdvReac Other Verified 06/03/25 10:36 hydrocodone (From Lortab) AdvReac Other Verified 06/03/25 10:36 OB - H&P: Exam Physical Exam Vital signs: Temp Pulse Resp BP Pulse Ox O2 Del Method 98.1 F 86 18 110/63 98 Room Air 06/05/25 06:33 06/05/25 06:33 06/05/25 06:33 06/05/25 06:33 06/05/25 06:33 06/05/25 06:33 Constitutional no acute distress, obese and cooperative Routine HEENT Exam Head: Present normocephalic and atraumatic Eye: Absent conjunctivae pink ENT: Present mucous membranes moist Routine Neck Exam Present full ROM Routine Respiratory Exam Present CTA bilaterally and normal respiratory effort Routine Cardiovascular Exam Present RRR Routine Abdominal Exam Present soft (Gravid); Absent tenderness Routine Rectal Exam Patient deferred: visual exam Routine Exam External: Present normal urethra appearance; Absent erythema, swelling, tenderness or lacerations Routine Extremities Exam Present edema (+2 bilateral lower extremity edema) and full ROM; Absent calf tenderness Routine Neurological Exam Present alert, moving all extremities and normal speech Routine Psychiatric Exam Present normal affect and cooperative OB - A/P Antepartum (1) LGA (large for gestational age) fetus affecting management of mother: Status: Acute (2) 39 weeks gestation of : Status: Acute (3) Mother positive for group B Streptococcus colonization: Status: Acute (4) Maternal obesity affecting , antepartum: Status: Acute Additional Plan Additional Information:: Admit to [facility] L&D for elective primary Reviewed risks, benefits, alternatives, expectations and possible complications. All questions addressed and answered. She voiced understanding of risks and complications. Consent form signed. Proceed with elective
[2025-06-05] MEDS: CEFAZOLIN SODIUM 3 GM in 0.9 % SODIUM CHLORIDE 100 ML IV (07:36)
--- NOTE | 2025-06-05 09:50 | P.PNANES_ITS ---
[facility] Anesthesia Record Part I Anesthesia Record I Intake, IV Amount: 1,800 Hydration: Adequate Estimated blood loss (mL): 100 Urine output (mL): 200 Blood Pressure: 133/78 SaO2: 100 Pulse Rate: 72 Airway Patency: Patent Respiratory Rate: 18 Temperature: 98.5 F Patient is:: Awake and Stable Stable to PACU at:: 09:44
--- NOTE | 2025-06-05 10:02 | EXP.OP.NOTE ---
Date of procedure: 06/05/25 Pre-op Diagnosis:: 1. IUP at 39w0d 2. LGA baby 3. Maternal obesity 4. Requests elective 5. Complete with childbearing, desires permanent sterilization Post-op Diagnosis:: 1. IUP at 39w0d 2. LGA baby 3. Maternal obesity 4. Requests elective 5. Complete with childbearing, desires permanent sterilization 6. hemorrhage Procedure performed:: 1. Elective Primary 2. Bilateral salpingectomy Surgeon:: Marina Barrera DO Generator Technician(s):: Giacomo Webster MD TALENT ACQUISITION SPECIALIST:: Samantha Martinez Anesthesia: GETA Estimated blood loss (mL): 1,100 Clinical Note:: Ms Yoselyn Sanders is a 30 yo at 39w0d who presents to [facility] L&D for scheduled elective secondary to LGA and non engaged head. History of forceps delivery with last delivery. Most recent ultrasound 05/20 demonstrated estimated weight 3659 g, 97th percentile with BPD > 98 %ile and HC 93 %ile. With baby measuring large and history of weakened pelvic floor after forceps delivery she is electing for primary . complicated by maternal obesity. She has had good care. Baby is active. She admits to pelvic pressure and contractions. No leakage of fluid. No vaginal bleeding. Operative findings:: 1. Live male baby, Prem, weighing 9 lb 5 oz. Apgars 7 (1 min), 9 (5 min) 2. Grossly normal appearing uterus, bilateral fallopian tubes and bilateral ovaries Operative note:: The risks, benefits and alternatives of the procedure were reviewed with the patient. Informed consent was obtained. Patient was taken to the operating room where spinal anesthesia was placed. The patient received 3 grams of Ancef preoperatively. Patient was placed in dorsal supine position with a leftward tilt. SCDs in place. Vivas catheter had been placed and was draining clear urine prior to the start of the procedure. heart tones were obtained. Allis clamp test was performed to ensure adequate anesthesia and Yoselyn could feel everything and move her feet. She was placed under general anesthesia. A Pfannenstiel skin incision was made 2 cm above pubic symphysis. This was carried through to underlying layer of fascia. Fascia was incised in midline, extended laterally with Jerome scissors. Superior aspect of fascial incision was grasped with two Rose clamps, elevated up, and rectus muscle dissected off bluntly and sharply with Jerome scissors. Inferior aspect of fascial incision was grasped with two Rose clamps, elevated up, and rectus muscle dissected off bluntly and sharply with Jerome scissors. The rectus muscle was then in the midline and the peritoneum was entered bluntly with a digit. Peritoneal incision was then extended superiorly and inferiorly with good visualization of the bladder. Darrel retractor was inserted. The lower uterine segment was incised in a transverse fashion. Clear amniotic fluid was noted. Head was delivered without difficulty. Remainder of body was delivered without difficulty. Mouth and nares were bulb suctioned. Spontaneous cry was noted. The umbilical cord was clamped and cut. The infant was handed to awaiting pediatric staff in stable condition. Dr. Varghese was present. Apgars were 7(1 min), 9(5 min). Cord blood was obtained. Gentle traction on the umbilical cord and uterine fundal massage delivered the placenta. Placenta was intact. Placenta will be sent to pathology for review. Uterus was cleared of all clots and debris with a moist laparotomy sponge. Uterus was boggy. She was given Methergine 0.2 mg IM x 1 dose and TXA. Corners of the uterine incision were grasped with Allis clamps. The uterine incision was reapproximated with # 1 Vicryl suture in a running, locked stitch. Second layer of the same stitch was used to imbricate the incision. Vesicouterine peritoneum was reapproximated in a running locked stitch with 2-0 Vicryl suture. Hemostasis was noted. Posterior cul-de-sac was cleaned with moist laparotomy sponge. Gutters cleared of all clots and debris with a moist laparotomy sponge. Reinspection of the lower uterine segment demonstrated small amount of oozing. Surgicel powder was applied over uterine incision. Hemostasis was noted. At this point all instruments and sponges were removed from the pelvis.? The peritoneum was grasped with Rere clamps x 3. The peritoneum was reapproximated with 0 Vicryl suture in a running stitch. The corners of the fascia were grasped with Rose clamps, and the fascia was reapproximated with two # 1 Vicryl suture overlapped to the right of midline. Subcutaneous tissue was irrigated with clear return of fluids. The subcutaneous tissue was reapproximated with 3-0 Vicryl. The skin was reapproximated with Insorb niya. Steri strips and Telfa was placed over closed Pfannenstiel skin incision. At the end of the procedure, the uterus was firm with minimal vaginal bleeding. Patient tolerated the procedure well. Instrument, sponges and needle counts were correct x 2. Mom and baby were transported to recovery room in stable condition. Condition: stable Disposition: floor Specimens:: 1. Uterus and placenta 2. Bilateral fallopian tubes 3. Cord blood Complications:: None
[2025-06-05] MEDS: OXYTOCIN/RINGERS LACTATE 30 UNITS/500 ML BAG 999 UNITS IV (10:20)
[2025-06-05] MEDS: LACTATED RINGERS 1000ML 1,000 ML 125 ML IV (10:20)
--- NOTE | 2025-06-05 12:09 | EXP.ANES.II ---
[facility] Anesthesia Record Part II Anesthesia Record Part II Discharge Time: 10:04 Destination: Obstetric PACU nurse assessment reviewed?: Yes Patient Condition:: Good Anesthesia Complications:: None Swallowing reflex intact?: Yes Airway Patency: Patent Cyanosis?: No Blood Pressure: 129/74 SaO2: 100 Respiratory Rate: 16 Pulse Rate: 68 Temperature: 97.0 F Mental Status: Alert & Oriented Pain level:: 4 Nausea and/or vomitting:: None Intake, IV Amount: 0 Hydration: Adequate
[2025-06-05] MEDS: ACETAMINOPHEN 500MG TAB 1000 MG PO ×2 (13:26→19:50)
[2025-06-05] MEDS: OXYCODONE 5MG IMMEDIATE RELEASE TABLET 10 MG PO (13:26)
[2025-06-05 14:33] LABS: RPR W/RFX Titers Nonreactive (Nonreactive)
[2025-06-05] MEDS: KETOROLAC 30MG/ML VIAL 30 MG (15:52)
[2025-06-05] MEDS: PRENATAL MULTIVITAMIN W/IRON 1 EACH PO (17:28)
[2025-06-05] MEDS: SENNA 8.6MG TABLET 8.6 MG PO (17:28)
[2025-06-05] MEDS: KETOROLAC 30MG/ML VIAL 30 MG IV (22:01)
[2025-06-05] MEDS: SIMETHICONE 80MG CHEWABLE TABLET 160 MG PO (22:02)
[2025-06-06] MEDS: OXYCODONE 5MG IMMEDIATE RELEASE TABLET 10 MG PO ×2 (03:05→12:19)
[2025-06-06] MEDS: ACETAMINOPHEN 500MG TAB 1000 MG PO ×4 (03:05→23:28)
[2025-06-06] MEDS: SIMETHICONE 80MG CHEWABLE TABLET 160 MG PO ×2 (04:08→14:03)
[2025-06-06] MEDS: KETOROLAC 30MG/ML VIAL 30 MG IV ×2 (04:08→09:38)
[2025-06-06 06:16] LABS: Hematocrit 27.6 % (37.0-47.0); Hemoglobin 8.8 g/dL (12.2-16.2); Immature Granulocytes % 0.4 %; Mean Corpuscular HGB Conc 31.9 g/dL (31.8-35.4); Mean Corpuscular Hemoglobin 28.0 pg (27.0-31.2); Mean Corpuscular Volume 87.9 fl (81-99); Nucleated Red Blood Cells % 0 %; Platelet Count 229 K/mm3 (142-424); Red Blood Count 3.14 M/mm3 (4.20-5.40); Red Cell Distribution Width-SD 47.9 fL; White Blood Count 9.9 K/mm3 (4.8-10.8)
[2025-06-06 07:34] LABS: Microscopic, Urine URINE MICROSCOPIC (MICROSCOPIC)
[2025-06-06 07:40] LABS: Bilirubin,Urine Negative (Negative); Color,Urine YELLOW (Yellow); Glucose,Urine (UA) Negative (Negative); Ketones,Urine Negative (Negative); Leukocyte Esterase,Urine Negative (Negative); PH,Urine 6.0 (5.0-8.5); Protein,Urine Negative (Negative); Specific Gravity, Urine 1.015 (1.005-1.030); Urobilinogen,Urine 0.2 EU/dl (0.2)
[2025-06-06 07:58] LABS: RBC,Urine Occasional #/hpf (0-3)
[2025-06-06 08:35] VITALS: BP 101/56; PULSE 88; RESP 17; TEMP 36.7; O2SAT 99
[2025-06-06 08:39] LABS: Hemoglobin A1C 4.3 % (4.0-6.0)
[2025-06-06] MEDS: IRON SUCROSE COMPLEX 200 MG in 0.9 % SODIUM CHLORIDE 100 ML 220 MG IV (09:38)
--- NOTE | 2025-06-06 11:11 | EXP.ACUTE.PN ---
Subjective *Date: 06/06/25 *Time: 11:11 Interval history: POD # 1 s/p PLTCS Feeling well. Pain controlled. Breast and supplemental feeding. Lochia is appropriate. Voiding without difficulty and passing flatus. Tolerating regular diet. Denies fever/chills, chest pain and shortness of breath. No headaches, vision changes, lightheadedness/dizziness. Admits to some lower extremity swelling. No calf pain. Ambulating well ad kyle. Medical Exam Vital signs and Labs for Last 24 Hours: Vital Signs Temp Pulse Resp BP Pulse Ox O2 Del Method 06/06/25 08:35 98.0 F 88 17 101/56 L 99 Room Air 06/05/25 12:11 16 Intake and Output 06/05/25 06/06/25 06/06/25 23:59 07:59 15:59 Intake Total 417.333 / 3775.416 110 / 110 Balance 417.333 / 3775.416 110 / 110 Intake: Intake, Total IV Amount 417.333 / 1975.416 110 / 110 Cefazolin Sodium 2 gm In 0.9 % 200 / 200 Sodium Chloride 100 ml @ 200 mls/hr IV Q8H [facility] Rx#:[id number] Iron Sucrose Complex 200 mg In 110 / 110 0.9 % Sodium Chloride 100 ml @ 220 mls/hr IV ONCE ONE Rx#: [id number] Oxytocin/Ringers Lactate 30 217.333 / 467.083 units In 500 ml @ 40 mls/hr IV .[id number] [facility] Rx#:[id number] Laboratory Results - last 24 hr 06/05/25 06:12: RPR w/Rflx to Titer Nonreactive 06/05/25 19:30: Urine Color Yellow, Urine Appearance Clear, Urine pH 6.0, Ur Specific [place] 1.015, Urine Protein Negative, Urine Glucose (UA) Negative, Urine Ketones Negative, Urine Blood Negative, Urine Nitrate Negative, Urine Bilirubin Negative, Urine Urobilinogen 0.2, Ur Leukocyte Esterase Negative, Urine RBC Occasional, Urine WBC None, Ur Squamous Epith Cells 3-5, Urine Bacteria None 06/06/25 05:37: WBC 9.9, RBC 3.14 L, Hgb 8.8 L, Hct 27.6 L, MCV 87.9, MCH 28.0, MCHC 31.9, RDW 15.2, Plt Count 229, MPV 11.8 H, Neut % (Auto) 75.9, Lymph % (Auto) 17.0, Elk % (Auto) 6.4, Eos % (Auto) 0.2, Baso % (Auto) 0.1, Neut # (Auto) 7.5, Lymph # (Auto) 1.7, Elk # (Auto) 0.6, Eos # (Auto) 0.0, Baso # (Auto) 0.0, Hemoglobin A1c 4.3 I & O for Labs for Last 24 Hours: Intake & Output 06/03/25 06/04/25 06/05/25 06/06/25 23:59 23:59 23:59 23:59 Intake Total 3775.416 / 3775.416 110 / 110 Balance 3775.416 / 3775.416 110 / 110 Weight 298 lb Constitutional: Present no acute distress, obese and cooperative Head: Present atraumatic and normocephalic ENT: Present normal exam and mucous membranes moist Neck: Present full ROM Respiratory: Present CTA bilaterally and normal respiratory effort Cardiac: Present Reg Rate and Rhythm GI: Present soft Rectal (female): Present deferred (female): Present deferred Extremities: Present full ROM and edema (+1 bilateral ankle/pedal edema); Absent calf tenderness Neuro: Present alert, awake and moves all extremities Assessment and Plan *Assessment and plan (1) S/P section: Problem Comment: Elective Status: Acute Category: Surgical Code(s): Z98.891 - History of uterine scar from previous surgery (2) hemorrhage: Status: Acute Qualifiers: hemorrhage type: unspecified Qualified Code(s): O72.1 - Other immediate hemorrhage Category: Medical Code(s): O72.1 - Other immediate hemorrhage (3) 39 weeks gestation of : Status: Acute Category: Medical Code(s): Z3A.39 - 39 weeks gestation of (4) LGA (large for gestational age) fetus affecting management of mother: Status: Acute Qualifiers: Fetus number: single or unspecified fetus Trimester: third trimester Qualified Code(s): O36.63X0 - Maternal care for excessive growth, third trimester, not applicable or unspecified Category: Medical Code(s): O36.60X0 - Maternal care for excessive growth, unspecified trimester, not applicable or unspecified (5) Mother positive for group B Streptococcus colonization: Status: Acute Category: Medical Code(s): P00.82 - affected by (positive) maternal group B streptococcus (GBS) colonization (6) Maternal obesity affecting , antepartum: Status: Acute Qualifiers: Obesity type affecting : unspecified obesity Qualified Code(s): O99.210 - Obesity complicating , unspecified trimester Category: Medical Code(s): O99.210 - Obesity complicating , unspecified trimester (7) Acute blood loss anemia: Status: Acute Category: Medical Code(s): D62 - Acute posthemorrhagic anemia Plan Continue routine care Encouraged increased ambulation AM Hgb 8.8 (11.3 on 05/29) -- Venofer 200 mg IV x 1 dose Plan d/c home tomorrow, POD # 2
[2025-06-06] MEDS: IBUPROFEN 400 MG TABLET 800 MG PO (17:07)
[2025-06-06] MEDS: PRENATAL MULTIVITAMIN W/IRON 1 EACH PO (17:07)
[2025-06-06] MEDS: OXYCODONE 5MG IMMEDIATE RELEASE TABLET 5 MG PO (23:29)
[2025-06-07] MEDS: IBUPROFEN 400 MG TABLET 800 MG PO (05:49)
[2025-06-07] MEDS: SENNA 8.6MG TABLET 8.6 MG PO (05:49)
[2025-06-07] MEDS: SIMETHICONE 80MG CHEWABLE TABLET 160 MG PO (05:49)
[2025-06-07] MEDS: PRENATAL MULTIVITAMIN W/IRON 1 EACH PO (08:43)
[2025-06-07] MEDS: ACETAMINOPHEN 500MG TAB 1000 MG PO (08:43)
[2025-06-07 08:47] VITALS: BP 121/58; PULSE 85; RESP 18; TEMP 36.5; O2SAT 98
--- NOTE | 2025-06-07 08:58 | EXP.DC.SUM ---
General Admission date:: 06/05/25 Discharge date: 06/07/25 HPI HPI HPI: Ms Yoselyn Sanders is a 30 yo at 39w0d who presents to [facility] L&D for scheduled elective secondary to LGA and non engaged head. History of forceps delivery with last delivery. Most recent ultrasound 05/20 demonstrated estimated weight 3659 g, 97th percentile with BPD > 98 %ile and HC 93 %ile. With baby measuring large and history of weakened pelvic floor after forceps delivery she is electing for primary . complicated by maternal obesity. She has had good care. Baby is active. She admits to pelvic pressure and contractions. No leakage of fluid. No vaginal bleeding. Hospital Course Hospital Course Hospital Course: Yoselyn is a 30yo postop day #2 from a primary low-transverse delivery and bilateral salpingectomy. She delivered a live viable male infant on 06/05/2025. weighed 9 pounds 5 ounces and had Apgars of 7 and 9 at 1 and 5 minutes respectively She has done well and has remained afebrile with her at her hospitalization. She is eating and drinking and ambulating. She is breast and bottle feeding. Her lochia is normal. She has B Rh+ blood, she is rubella immune and was group B streptococcus positive. She will be discharged home to follow-up with Dr. Barrera in 2 weeks time. She will continue with her vitamins and iron. She has a prescription for Percocet and will continue these at home. She will take ibuprofen as well. She was given the usual instructions with respect to limiting her activity, driving and sexual activity. She was given instructions with respect to wound care. Her condition on discharge is stable and improved. Exam Data for Last 24 hours Vital signs and Labs for Last 24 Hours: Temp Pulse Resp BP Pulse Ox O2 Del Method 98.0 F 88 17 101/56 L 99 Room Air 06/06/25 08:35 06/06/25 08:35 06/06/25 08:35 06/06/25 08:35 06/06/25 08:35 06/06/25 08:35 Laboratory Results - last 24 hr 06/05/25 06:12: HIV Ag/Ab Combo Qual Negative I & O for Last 24 hours: Intake & Output 06/04/25 06/05/25 06/06/25 06/07/25 23:59 23:59 23:59 23:59 Intake Total 3775.416 / 3775.416 110 / 110 Balance 3775.416 / 3775.416 110 / 110 Weight 298 lb Constitutional Constitutional: no acute distress *Routine HEENT Exam Head: Present normocephalic Eye: Present EOMI and PERRL ENT: Present mucous membranes moist *Routine Neck Exam Neck: Present supple; Absent lymphadenopathy *Routine Respiratory Exam Respiratory: Present CTA bilaterally *Routine Cardiovascular Exam Cardiovascular: Present RRR *Routine Abdominal Exam Abdominal: Present soft and normoactive bowel sounds; Absent tenderness *Routine Extremities Exam Extremities: Absent cyanosis, clubbing or edema *Routine Skin Exam Skin: Present warm; Absent rash Comments: Incision is healing well, no signs of infection, erythema, drainage, or bleeding *Routine Neurological Exam Neurological: Present alert and oriented X3 Results Data Completed and Pending Labs on day of discharge: Labs from last 24 hours 06/05/25 06:12 HIV Ag/Ab Combo Qual Negative DS: Diagnosis Discharge Diagnosis (1) S/P section: Status: Acute Code(s): Z98.891 - History of uterine scar from previous surgery Problem details: Elective (2) hemorrhage: Status: Acute Code(s): O72.1 - Other immediate hemorrhage Qualifiers: hemorrhage type: unspecified Qualified Code(s): O72.1 - Other immediate hemorrhage (3) 39 weeks gestation of : Status: Acute Code(s): Z3A.39 - 39 weeks gestation of (4) LGA (large for gestational age) fetus affecting management of mother: Status: Acute Code(s): O36.60X0 - Maternal care for excessive growth, unspecified trimester, not applicable or unspecified Qualifiers: Fetus number: single or unspecified fetus Trimester: third trimester Qualified Code(s): O36.63X0 - Maternal care for excessive growth, third trimester, not applicable or unspecified (5) Mother positive for group B Streptococcus colonization: Status: Acute Code(s): P00.82 - [place] affected by (positive) maternal group B streptococcus (GBS) colonization (6) Maternal obesity affecting , antepartum: Status: Acute Code(s): O99.210 - Obesity complicating , unspecified trimester Qualifiers: Obesity type affecting : unspecified obesity Qualified Code(s): O99.210 - Obesity complicating , unspecified trimester (7) Acute blood loss anemia: Status: Acute Code(s): D62 - Acute posthemorrhagic anemia Meds Home Medications and Allergies Home Medications ?Medication ?Instructions ?Recorded ?Confirmed ?Type vit no.95-ferrous 1 tab PO DAILY #90 tabs 01/11/25 06/03/25 Rx fumarate 28 mg-folic acid 800 mcg tablet () acetaminophen 500 mg tablet 500 mg PO Q6H PRN fever or pain 06/07/25 Rx #30 tabs ferrous sulfate 325 mg (65 mg 325 mg PO DAILY #30 tabs 06/07/25 Rx iron) tablet,delayed release ibuprofen 800 mg tablet 800 mg PO Q8H PRN pain #60 tabs 06/07/25 Rx oxycodone 5 mg tablet 5 mg PO Q8H PRN pain #20 tabs 06/07/25 Rx sennosides 8.6 mg tablet (Senna 8.6 mg PO BIDP PRN Constipation 06/07/25 Rx Lax) #60 tabs simethicone 125 mg tablet 125 mg PO DAILY PRN abdominal 06/07/25 Rx distention #60 tabs New Prescriptions to Start Prescriptions: acetaminophen Kahlil,Leticia ferrous sulfate Kahlil,Leticia ibuprofen Kahlil,Leticia oxycodone Kahlil,Leticia sennosides [Senna Lax] Kahlil,Leticia simethicone Leticia Guillory Allergies Allergy/AdvReac Type Severity Reaction Status Date / Time metoclopramide (From Reglan) Allergy Mild Hives Verified 06/03/25 10:36 famotidine (From Pepcid) Allergy Unknown Verified 06/03/25 10:36 allergy reaction prochlorperazine (From Allergy Unknown Verified 06/03/25 10:36 Compazine) allergy reaction levothyroxine AdvReac Intermediate hot flashes Verified 06/03/25 10:36 acetaminophen (From Lortab) AdvReac Other Verified 06/03/25 10:36 hydrocodone (From Lortab) AdvReac Other Verified 06/03/25 10:36 Discharge Plan Disposition Patient Disposition: Home, Self-Care Discharge Order Discharge Orders: Discharge Order (Routine); Ordered 06/07/25 Ordered By: Leticia Guillory Follow up Plan Follow up with: Marina Barrera DO [Primary Care Provider, [employer]AR[employer]] - Enter time for follow up Prescriptions/Medication Reconciliation: New sennosides [Senna Lax] 8.6 mg Tablet 8.6 mg PO BIDP PRN (Reason: Constipation) Qty: 60 2RF ibuprofen 800 mg tablet 800 mg PO Q8H PRN (Reason: pain) Qty: 60 2RF acetaminophen 500 mg tablet 500 mg PO Q6H PRN (Reason: fever or pain) Qty: 30 3RF simethicone 125 mg tablet 125 mg PO DAILY PRN (Reason: abdominal distention) Qty: 60 2RF ferrous sulfate 325 mg (65 mg iron) tablet,delayed release (DR/EC) 325 mg PO DAILY Qty: 30 3RF oxycodone 5 mg tablet 5 mg PO Q8H PRN (Reason: pain) Qty: 20 0RF Continued PNV no.95-ferrous fumarate-FA [] 28 mg iron- 800 mcg tablet 1 tab PO DAILY Qty: 90 1RF Problem Reconciliation Problems Reviewed?: Yes Patient Discharge Instructions DIET: regular diet Additional Instructions: Congratulations on the delivery of your sweet baby boy. It is my privilege to be a part of your [employer] team. Discharge: -Take 800 mg Ibuprofen every 8 hours as needed for pain. You can also take 500-1000 mg of Tylenol in between doses, every 6-8 hours. -Colace can be taken 1-2 times per day as you need to soften your stool. Make sure to drink at least 8 cups of water per day. -Iron supplements can make you constipated. You can take iron tablets every other day if constipation is too bad. -Nothing in the vagina for 6 weeks - no intercourse, douching, tampons. No tub baths or swimming pools. -Do not lift greater than 20pounds for 2 weeks, this is the equivalent of 2 gallons of milk. -Reasons to return to L&D or call On-Call doctor - fever (greater than 100.4) - heavy vaginal bleeding (soaking through 1 pad in less than 2 hours or passing clots that are egg sized) - vaginal discharge (malodorous and/or purulent) - severe headaches, leg tenderness/edema, or any other symptoms that warrant immediate medical attention. depression/blues - Normal to feel anxious/overwhelmed for first 2 weeks - Talk to your doctor if: anxiety lasts over 2 weeks, trouble bonding with baby, withdrawing from other family members, thoughts of harming yourself or others Blood pressure and preeclampsia instructions - Please call if greater than 2 values are higher than: 150 systolic (the top number) or 100 diastolic (the bottom number). - Please go to the emergency room or labor and delivery triage if any value is higher than: 160 systolic (the top number) or 110 diastolic (the bottom number). - Please call if unrelenting headache (does not go away with rest or Tylenol or ibuprofen), changes in vision (spots, floaters, flashes of light), chest pain, shortness of breath, or right upper quadrant (liver) abdominal pain. Leticia Guillory DO [facility] [phone] *Nothing in the Vagina for 6 weeks* *No strenuous activity* *No heavy lifting* *No tub baths until okay's by MD* Patient Instructions: Depression, Hemorrhage, DI for , DI for Pre-eclampsia, [facility] Post Discharge Instructions Print Language: [place]al[place] Providers Primary Care Provider: Marina Barrera Admit Provider: Marina Barrera Attending Provider: Marina Barrera
== END 2025-06-07 11:05 | disposition home or self-care (01) | DRG 784 ==
PROVIDERS: Internal Medicine Adolescent Medicine; Admitting Provider Obstetrics & Gynecology; PCP Obstetrics & Gynecology; Visit Provider Obstetrics & Gynecology
PROC: 10D00Z1 Extraction of Products of Conception, Low, Open Approach (ICD-10-PCS; CPT 59514; principal; 2025-06-05 07:30)
DX: O36.63X0 Maternal care for excessive fetal growth, third trimester, not applicable or unspecified (principal); D62 Acute posthemorrhagic anemia; O72.1 Other immediate postpartum hemorrhage; Z3A.39 39 weeks gestation of pregnancy; Z37.0 Single live birth; O99.214 Obesity complicating childbirth; O32.4XX0 Maternal care for high head at term, not applicable or unspecified; O99.824 Streptococcus B carrier state complicating childbirth; O90.81 Anemia of the puerperium; O99.334 Smoking (tobacco) complicating childbirth; F17.290 Nicotine dependence, other tobacco product, uncomplicated; Z30.2 Encounter for sterilization; Z23 Encounter for immunization; Z88.5 Allergy status to narcotic agent; Z88.6 Allergy status to analgesic agent; Z88.8 Allergy status to other drugs, medicaments and biological substances
CPT/HCPCS: 36415; 51702; 59025; 81001; 83036; 85025; 86592; 86850; 87389; J0665; J0666; J1100; J1756; J1885; J2003; J2210; J2405; J2590; J2704; J3010; J7120